=== PATIENT | male | born 1985 | race American Indian/Alaskan Native ===

== ENCOUNTER 2017-10-17 22:17 | Inpatient (IN) | payer OTHER ==
[2017-10-17 23:46] LABS: INR 0.96 (0.87-1.13)
[2017-10-17 23:47] LABS: Partial Thromboplastin Time 27.2 Sec. (24.2-36.6)
[2017-10-17] MEDS ORDERED: MORPHINE ONE (23:47)
[2017-10-17] MEDS ORDERED: MORPHINE IV ONE (23:50)
[2017-10-18 00:02] LABS: Alanine Aminotransferase 15 units/L (7-56); Albumin 3.8 g/dL (3.9-5); BUN/Creatinine Ratio 15; Blood Urea Nitrogen 15 mg/dL (9-20); Calcium 8.8 mg/dL (8.4-10.2); Hemolysis Index 57
--- NOTE | 2017-10-18 00:04 | XRay Report ---
FINAL REPORT EXAM: XR CHEST 1V AP HISTORY: CHEST PAIN, SEVERE TECHNIQUE: AP portable view of the chest. PRIORS: None. FINDINGS: There is a left-sided AICD that appears adequately positioned. The cardiac silhouette is moderately to markedly enlarged. Pulmonary vascularity appears normal. The lungs are clear. The bones and soft tissues are unremarkable. IMPRESSION: Enlarged cardiac silhouette may be due to cardiomegaly or pericardial effusion.
[2017-10-18 00:07] LABS: Basophils # (Auto) 0.1 K/mm3 (0.0-0.1); Basophils % (Auto) 1.1 % (0.0-1.8); Eosinophils # (Auto) 0.1 K/mm3 (0.0-0.4); Eosinophils % (Auto) 1.6 % (0.0-4.3); Hematocrit 38.8 % (35.5-45.6); Hemoglobin 12.1 gm/dl (11.8-15.2); Lymphocytes # (Auto) 2.7 K/mm3 (1.2-5.4); Mean Corpuscular HGB Conc 31 % (32-34); Mean Corpuscular Volume 75 fl (84-94); Monocytes # (Auto) 0.7 K/mm3 (0.0-0.8); Monocytes % (Auto) 9.3 % (0.0-7.3); Platelet Count 268 K/mm3 (140-440); Red Cell Distribution Width 15.2 % (13.2-15.2)
[2017-10-18 00:16] LABS: Mean Corpuscular Hemoglobin 23 pg (28-32)
[2017-10-18] MEDS ORDERED: DILAUDID IV ONE (00:28)
--- NOTE | 2017-10-18 01:20 | Emergency Department Report ---
HPI - General Chief Complaint: Chest Pain Time Seen by Provider: 10/17/17 22:55 - HPI HPI: 32-year-old male morbidly obese presents to ED with severe chest pain that started during physical activity. He described his pain as substernal 10 out of 10, without radiation. Patient does have a history of cardiac pathology and has AICD. Which she stated did not fire. Patient denies any shortness of breath, nausea, diaphoresis. He denies any alleviating factors, states that physical activity is an exacerbating factor. Patient states he has been compliant with medication. ED Past Medical Hx - Past Medical History Hx Heart Attack/AMI: Yes Hx Congestive Heart Failure: Yes Hx Diabetes: Yes Hx Deep Vein Thrombosis: Yes - Surgical History Past Surgical History?: Yes Hx Internal Defibrillator: Yes - Social History Smoking Status: Never Smoker Substance Use Type: None ED Review of Systems ROS: Stated complaint: CHEST PAIN Other details as noted in HPI Comment: All other systems reviewed and negative Respiratory: denies: cough Cardiovascular: chest pain, edema. denies: syncope, paroxysmal nocturnal dyspnea, other Physical Exam - Physical Exam Vital Signs: Vital Signs 10/17/17 10/17/17 10/17/17 22:34 22:46 23:00 Temperature Pulse Rate 93 H 88 91 H Respiratory 23 16 20 Rate Blood Pressure 136/97 O2 Sat by Pulse 97 Oximetry 10/17/17 10/17/17 10/17/17 23:10 23:15 23:31 Temperature 98.8 F Pulse Rate 104 H 84 83 Respiratory 20 13 12 Rate Blood Pressure 136/84 136/97 142/91 O2 Sat by Pulse 98 99 99 Oximetry 10/17/17 10/18/17 10/18/17 23:45 00:01 00:15 Temperature Pulse Rate 87 83 87 Respiratory 30 H 18 19 Rate Blood Pressure 129/90 129/90 129/90 O2 Sat by Pulse 100 99 100 Oximetry 10/18/17 00:26 Temperature Pulse Rate Respiratory 20 Rate Blood Pressure O2 Sat by Pulse 95 Oximetry Physical Exam: - Physical Exam - General Limitations: No Limitations General appearance: alert, in no apparent distress, morbidly obese - Head Head exam: Present: atraumatic, normocephalic - Eye Eye exam: Present: normal appearance - ENT ENT exam: Present: mucous membranes moist - Neck Neck exam: Present: normal inspection - Respiratory Respiratory exam: Present: normal lung sounds bilaterally. Absent: respiratory distress - Cardiovascular Cardiovascular Exam: Present: normal rhythm, normal rate. Absent: systolic murmur, diastolic murmur, rubs, gallop - GI/Abdominal GI/Abdominal exam: Present: soft, normal bowel sounds - Extremities Exam Extremities exam: Present: Bilateral lower extremity edema. 4+ - Back Exam Back exam: Present: normal inspection - Neurological Exam Neurological exam: Present: alert, oriented X3 - Psychiatric Psychiatric exam: normal affect and mood - Skin Skin exam: Present: warm, dry, intact, normal color. Absent: rash ED Course Vital Signs 10/17/17 10/17/17 10/17/17 22:34 22:46 23:00 Temperature Pulse Rate 93 H 88 91 H Respiratory 23 16 20 Rate Blood Pressure 136/97 O2 Sat by Pulse 97 Oximetry 10/17/17 10/17/17 10/17/17 23:10 23:15 23:31 Temperature 98.8 F Pulse Rate 104 H 84 83 Respiratory 20 13 12 Rate Blood Pressure 136/84 136/97 142/91 O2 Sat by Pulse 98 99 99 Oximetry 10/17/17 10/18/17 10/18/17 23:45 00:01 00:15 Temperature Pulse Rate 87 83 87 Respiratory 30 H 18 19 Rate Blood Pressure 129/90 129/90 129/90 O2 Sat by Pulse 100 99 100 Oximetry 10/18/17 00:26 Temperature Pulse Rate Respiratory 20 Rate Blood Pressure O2 Sat by Pulse 95 Oximetry ED Medical Decision Making - Lab Data Result diagrams: 10/17/17 23:04 10/17/17 23:04 Critical care attestation.: If time is entered above; I have spent that time in minutes in the direct care of this critically ill patient, excluding procedure time. ED Disposition Clinical Impression: Chest pain Qualifiers: Chest pain type: other chest pain Qualified Code(s): R07.89 - Other chest pain ; R07.8 - Other chest pain Disposition: OP ADMIT IP TO THIS HOSP Is pt being admited?: Yes Does the pt Need Aspirin: Yes Condition: Stable Instructions: Chest Pain (ED)
[2017-10-18] MEDS ORDERED: ZOFRAN IV PRN (02:31)
[2017-10-18] MEDS ORDERED: SODIUM CHLORIDE FLUSH SYRINGE 10 ML IV PRN (02:31)
[2017-10-18] MEDS ORDERED: TYLENOL PO PRN (02:31)
[2017-10-18] MEDS ORDERED: D50W (25GM) Syringe IV PRN (02:34)
--- NOTE | 2017-10-18 03:10 | History and Physical Report ---
History of Present Illness Date of examination: 10/18/17 Date of admission: 10/18/17 01:21 Chief complaint: Chest pain History of present illness: Patient is a 32-year-old -[place] male with medical history significant for CAD who presented to the ED on account of few hours history of left-sided chest pain. He stated that it started while he was taking a walk, as part of his exercise he started about 3 months ago in order to lose weight. He described it as sharp in character, constant in duration, rated 8-9/10, and non - radiating. No known aggravating or relieving factors. He has associated shortness of breath with mild exertion, diaphoresis, palpitation, and right leg swelling. He denies cough, fever or chills, headaches, nausea or vomiting, dizziness, syncope or loss of consciousness. Past History Past Medical History: CAD (non-obstructive), diabetes, heart failure (status post AICD), other (morbid obesity, history of DVT, lymphedema) Past Surgical History: Other (AICD placement) Social history: other (he denies tobacco, alcohol or illicit drug use.) Family history: other (mother from heart attack in her 30's) Medications and Allergies Allergies Allergy/AdvReac Type Severity Reaction Status Date / Time No Known Allergies Allergy Unverified 10/18/17 00:25 Active Meds: Active Medications Acetaminophen (Tylenol) 650 mg PO Q4H PRN PRN Reason: Pain MILD(1-3)/Fever >100.5/ROBERSON Dextrose (D50w (25gm) Syringe) 50 ml IV PRN PRN PRN Reason: Hypoglycemia Docusate Sodium (Colace) 100 mg PO BID [facility] Famotidine (Pepcid) 20 mg PO BID [facility] Insulin Glargine (Lantus) 10 units SUB-Q QHS [facility] Insulin Human Regular (Humulin R) 0 units SUB-Q ACHS [facility]; Protocol Ondansetron HCl (Zofran) 4 mg IV Q8H PRN PRN Reason: Nausea And Vomiting Oxycodone/Acetaminophen (Percocet 5/325) 2 tab PO Q4H PRN PRN Reason: Pain, Moderate (4-6) Sodium Chloride (Sodium Chloride Flush Syringe 10 Ml) 10 ml IV BID [facility] Sodium Chloride (Sodium Chloride Flush Syringe 10 Ml) 10 ml IV PRN PRN PRN Reason: LINE FLUSH Review of Systems All systems: negative (except as documented in the HPI, all other systems were reviewed and negative) Exam - Constitutional Vitals: Temp Pulse Resp BP Pulse Ox 98.8 F 84 15 157/79 98 10/17/17 23:10 10/18/17 01:45 10/18/17 01:45 10/18/17 01:45 10/18/17 01:45 General appearance: Present: no acute distress, other (morbidly obese) - EENT Eyes: Present: PERRL, EOM intact ENT: hearing intact, clear oral mucosa - Neck Neck: Present: supple, normal ROM - Respiratory Respiratory effort: normal Respiratory: bilateral: CTA - Cardiovascular Heart Sounds: Present: S1 & S2. Absent: rub, click - Extremities Extremities: pulses symmetrical Extremity abnormal: edema (right more than left) Peripheral Pulses: within normal limits - Abdominal General gastrointestinal: Present: soft, non-tender, non-distended, normal bowel sounds Male genitourinary: Present: normal - Integumentary Integumentary: Present: warm, dry - Musculoskeletal Musculoskeletal: gait normal, strength equal bilaterally - Psychiatric Psychiatric: appropriate mood/affect, intact judgment & insight - Neurologic Neurologic: CNII-XII intact, moves all extremities Results - Labs CBC & Chem 7: 10/17/17 23:04 10/17/17 23:04 Labs: Laboratory Last Values WBC 7.2 K/mm3 (4.5-11.0) 10/17/17 23:04 RBC 5.20 M/mm3 (3.65-5.03) H 10/17/17 23:04 Hgb 12.1 gm/dl (11.8-15.2) 10/17/17 23:04 Hct 38.8 % (35.5-45.6) 10/17/17 23:04 MCV 75 fl (84-94) L 10/17/17 23:04 MCH 23 pg (28-32) L 10/17/17 23:04 MCHC 31 % (32-34) L 10/17/17 23:04 RDW 15.2 % (13.2-15.2) 10/17/17 23:04 Plt Count 268 K/mm3 (140-440) 10/17/17 23:04 Lymph % (Auto) 38.0 % (13.4-35.0) H 10/17/17 23:04 Russell % (Auto) 9.3 % (0.0-7.3) H 10/17/17 23:04 Eos % (Auto) 1.6 % (0.0-4.3) 10/17/17 23:04 Baso % (Auto) 1.1 % (0.0-1.8) 10/17/17 23:04 Lymph # 2.7 K/mm3 (1.2-5.4) 10/17/17 23:04 Russell # 0.7 K/mm3 (0.0-0.8) 10/17/17 23:04 Eos # 0.1 K/mm3 (0.0-0.4) 10/17/17 23:04 Baso # 0.1 K/mm3 (0.0-0.1) 10/17/17 23:04 Seg Neutrophils % 50.0 % (40.0-70.0) 10/17/17 23:04 Seg Neutrophils # 3.6 K/mm3 (1.8-7.7) 10/17/17 23:04 PT 13.3 Sec. (12.2-14.9) 10/17/17 23:04 INR 0.96 (0.87-1.13) 10/17/17 23:04 APTT 27.2 Sec. (24.2-36.6) 10/17/17 23:04 Sodium 138 mmol/L (137-145) 10/17/17 23:04 Potassium 4.3 mmol/L (3.6-5.0) 10/17/17 23:04 Chloride 99.9 mmol/L (98-107) 10/17/17 23:04 Carbon Dioxide 22 mmol/L (22-30) 10/17/17 23:04 Anion Gap 20 mmol/L 10/17/17 23:04 BUN 15 mg/dL (9-20) 10/17/17 23:04 Creatinine 1.0 mg/dL (0.8-1.5) 10/17/17 23:04 Estimated GFR > 60 ml/min 10/17/17 23:04 BUN/Creatinine Ratio 15 % 10/17/17 23:04 Glucose 179 mg/dL (75-100) H 10/17/17 23:04 Calcium 8.8 mg/dL (8.4-10.2) 10/17/17 23:04 Total Bilirubin 0.20 mg/dL (0.1-1.2) 10/17/17 23:04 AST 17 units/L (5-40) 10/17/17 23:04 ALT 15 units/L (7-56) 10/17/17 23:04 Alkaline Phosphatase 50 units/L (35-129) 10/17/17 23:04 Troponin T 0.012 ng/mL (0.00-0.029) 10/18/17 01:28 NT-Pro-B Natriuret Pep 965.0 pg/mL (0-450) H 10/17/17 23:04 Total Protein 7.5 g/dL (6.3-8.2) 10/17/17 23:04 Albumin 3.8 g/dL (3.9-5) L 10/17/17 23:04 Albumin/Globulin Ratio 1.0 % 10/17/17 23:04 Assessment and Plan Assessment and plan: Chest pain, rule out ACS -Start chest pain pathway -Consider cardiology consult if chest pain persists. History of lymphedema -Right lower extremity swelling more than left -Due to prior history of DVT, will order venous doppler ultrasound to assess for DVT History of chronic systolic Failure with EF of 20% status post AICD placement -No acute exacerbation NIDDM2 with hyperglycemia -Start basal and prandial insulin regimen Morbid obesity with BMI of 66.5 -Weight loss encouraged Prophylaxis -DVT prophylaxis with SCD and GI prophylaxis with famotidine 35 minutes spent in coordinating care
[2017-10-18] MEDS ORDERED: PEPCID ONE (03:42)
[2017-10-18] MEDS ORDERED: COLACE ONE (03:42)
[2017-10-18] MEDS ORDERED: PERCOCET 5/325 ONE (03:44)
[2017-10-18] MEDS: COLACE PO SCH ×3 (03:53→22:05)
[2017-10-18] MEDS: PEPCID PO SCH ×3 (03:53→22:05)
[2017-10-18] MEDS: PERCOCET 5/325 PO PRN ×3 (03:54→22:06)
--- NOTE | 2017-10-18 10:05 | Progress Note ---
Assessment and Plan Assessment and plan: --Chest pain/possible acute coronary syndrome Serial cardiac enzymes and EKG, echocardiogram, stress test Cardiology evaluation --Severe cardiomyopathy; continue current anti-failure medications --Acute on chronic systolic congestive heart failure; ejection fraction 20% Low-sodium diet, fluid restriction, anti-failure medications, follow echocardiogram --Chronic lymphedema; supportive care Lower extremity venous Doppler negative for DVT --History of DVT; on xeralto --Type 2 diabetes mellitus; Accu-Chek sliding scale coverage and ADA diet and insulin as needed --Morbid obesity; consequently been advised that modification and exercise as tolerated and weight reduction when medically stable May benefit by a bariatric surgical consultation for weight reduction program --DVT prophylaxis patient is on Xeralto Closely monitor the patient and adjust the management as needed Follow cardiology evaluation and recommendations Plan of care discussed with the patient and his nurse History Interval history: Patient was admitted this morning with chest pain and shortness of breath Physical site slightly better, has intermittent chest pain, asked for more pain medication Alert awake oriented 3 not in acute distress Morbidly obese Hospitalist Physical - Constitutional Vitals: Temp Pulse Resp BP Pulse Ox 98.8 F 98 H 25 H 125/91 99 10/17/17 23:10 10/18/17 05:03 10/18/17 03:15 10/18/17 03:15 10/18/17 03:00 General appearance: Present: no acute distress, well-nourished, other (morbidly obese) - EENT Eyes: Present: PERRL, EOM intact - Neck Neck: Present: supple, normal ROM - Respiratory Respiratory effort: normal Respiratory: bilateral: diminished, negative: rales, rhonchi, wheezing - Cardiovascular Rhythm: regular Heart Sounds: Present: S1 & S2 - Extremities Extremities: no ischemia, No edema - Abdominal General gastrointestinal: soft, non-tender, non-distended, normal bowel sounds - Integumentary Integumentary: Present: clear, warm - Psychiatric Psychiatric: appropriate mood/affect, cooperative - Neurologic Neurologic: CNII-XII intact, moves all extremities Results - Labs CBC & Chem 7: 10/17/17 23:04 10/17/17 23:04 Labs: Laboratory Last Values WBC 7.2 K/mm3 (4.5-11.0) 10/17/17 23:04 RBC 5.20 M/mm3 (3.65-5.03) H 10/17/17 23:04 Hgb 12.1 gm/dl (11.8-15.2) 10/17/17 23:04 Hct 38.8 % (35.5-45.6) 10/17/17 23:04 MCV 75 fl (84-94) L 10/17/17 23:04 MCH 23 pg (28-32) L 10/17/17 23:04 MCHC 31 % (32-34) L 10/17/17 23:04 RDW 15.2 % (13.2-15.2) 10/17/17 23:04 Plt Count 268 K/mm3 (140-440) 10/17/17 23:04 Lymph % (Auto) 38.0 % (13.4-35.0) H 10/17/17 23:04 Greene % (Auto) 9.3 % (0.0-7.3) H 10/17/17 23:04 Eos % (Auto) 1.6 % (0.0-4.3) 10/17/17 23:04 Baso % (Auto) 1.1 % (0.0-1.8) 10/17/17 23:04 Lymph # 2.7 K/mm3 (1.2-5.4) 10/17/17 23:04 Greene # 0.7 K/mm3 (0.0-0.8) 10/17/17 23:04 Eos # 0.1 K/mm3 (0.0-0.4) 10/17/17 23:04 Baso # 0.1 K/mm3 (0.0-0.1) 10/17/17 23:04 Seg Neutrophils % 50.0 % (40.0-70.0) 10/17/17 23:04 Seg Neutrophils # 3.6 K/mm3 (1.8-7.7) 10/17/17 23:04 PT 13.3 Sec. (12.2-14.9) 10/17/17 23:04 INR 0.96 (0.87-1.13) 10/17/17 23:04 APTT 27.2 Sec. (24.2-36.6) 10/17/17 23:04 Sodium 138 mmol/L (137-145) 10/17/17 23:04 Potassium 4.3 mmol/L (3.6-5.0) 10/17/17 23:04 Chloride 99.9 mmol/L (98-107) 10/17/17 23:04 Carbon Dioxide 22 mmol/L (22-30) 10/17/17 23:04 Anion Gap 20 mmol/L 10/17/17 23:04 BUN 15 mg/dL (9-20) 10/17/17 23:04 Creatinine 1.0 mg/dL (0.8-1.5) 10/17/17 23:04 Estimated GFR > 60 ml/min 10/17/17 23:04 BUN/Creatinine Ratio 15 % 10/17/17 23:04 Glucose 179 mg/dL (75-100) H 10/17/17 23:04 Calcium 8.8 mg/dL (8.4-10.2) 10/17/17 23:04 Total Bilirubin 0.20 mg/dL (0.1-1.2) 10/17/17 23:04 AST 17 units/L (5-40) 10/17/17 23:04 ALT 15 units/L (7-56) 10/17/17 23:04 Alkaline Phosphatase 50 units/L (35-129) 10/17/17 23:04 Troponin T 0.012 ng/mL (0.00-0.029) 10/18/17 01:28 NT-Pro-B Natriuret Pep 965.0 pg/mL (0-450) H 10/17/17 23:04 Total Protein 7.5 g/dL (6.3-8.2) 10/17/17 23:04 Albumin 3.8 g/dL (3.9-5) L 10/17/17 23:04 Albumin/Globulin Ratio 1.0 % 10/17/17 23:04
[2017-10-18] MEDS ORDERED: LASIX PO SCH (11:00)
[2017-10-18] MEDS: HumuLIN R SUB-Q SCH ×3 (12:35→22:50)
[2017-10-18] MEDS: BABY ASPIRIN PO SCH (13:08)
[2017-10-18] MEDS: SODIUM CHLORIDE FLUSH SYRINGE 10 ML IV SCH ×2 (13:09→22:50)
[2017-10-18] MEDS: XARELTO PO SCH (13:17)
--- NOTE | 2017-10-18 14:49 | Consultation ---
History of Present Illness Consult date: 10/18/17 Requesting physician: KENNY JOSEPH Consult reason: chest pain History of present illness: The patient claims that [place]. He was diagnosed with chronic systolic heart failure for the first time in April 2016. He claims that he was told that he had a heart attack at that time. He reportedly underwent coronary angiography at [facility] which did not reveal any significant CAD. He claims that he underwent coronary angiography again in July 2016 at the same hospital with no significant CAD. Just over a week ago, he claims that he received an ICD implantation at [facility] in [facility]. On his last echocardiogram, he claims that his ejection fraction was 20%. He claims that he was discharged about 3-4 days ago. While ambulating yesterday, he developed left infraclavicular pain which he describes as constant and pressure-like. This was followed by shortness of breath. Upon arrival at his aunt's home, he decided to come to the ER for evaluation. He feels better currently. Past History Past Medical History: acute [place], diabetes, heart failure (chronic HFrEF, EF 20%; no significant CAD on coronary angiography in April 22 & 07/30.), hypertension, hyperlipidemia Past Surgical History: Other (AICD implantation in 10/28; chest tube placement for drainage of empyema at [place] 4-5 years ago) Social history: single (has 4 children). denies: smoking, alcohol abuse Family history: CAD Medications and Allergies Allergies Allergy/AdvReac Type Severity Reaction Status Date / Time No Known Allergies Allergy Unverified 10/18/17 00:25 Home Medications Medication Instructions Recorded Confirmed Last Taken Type Amlodipine Bes/Olmesartan Med 1 each PO QDAY 10/18/17 10/18/17 1 Day Ago History [Amlodipine-Olmesartan 10-20 mg] ~10/17/17 Carvedilol [Coreg] 12.5 mg PO BID 10/18/17 10/18/17 1 Day Ago History ~10/17/17 12.5 Furosemide [Lasix TAB] 80 mg PO BID 10/18/17 10/18/17 1 Day Ago History ~10/17/17 Metformin HCl 500 mg PO BID 10/18/17 10/18/17 1 Day Ago History ~10/17/17 Rivaroxaban [Xarelto] 20 mg PO QDAY 10/18/17 10/18/17 2 Days Ago History ~10/16/17 oxyCODONE /ACETAMINOPHEN [Percocet 1 tab PO Q6HR 10/18/17 10/18/17 2 Days Ago History 5/325] ~10/16/17 oxyCODONE [Roxicodone TAB] 5 mg PO Q6H PRN 10/18/17 10/18/17 2 Days Ago History ~10/16/17 Active Meds: Active Medications Acetaminophen (Tylenol) 650 mg PO Q4H PRN PRN Reason: Pain MILD(1-3)/Fever >100.5/ROBERSON Aspirin (Baby Aspirin) 81 mg PO QDAY [facility] Last Admin: 10/18/17 13:08 Dose: 81 mg Carvedilol (Coreg) 12.5 mg PO BID [facility] Dextrose (D50w (25gm) Syringe) 50 ml IV PRN PRN PRN Reason: Hypoglycemia Docusate Sodium (Colace) 100 mg PO BID [facility] Last Admin: 10/18/17 13:08 Dose: 100 mg Famotidine (Pepcid) 20 mg PO BID [facility] Last Admin: 10/18/17 13:08 Dose: 20 mg Furosemide (Lasix) 80 mg PO BID [facility] Last Admin: 10/18/17 13:17 Dose: 80 mg Insulin Glargine (Lantus) 10 units SUB-Q QHS [facility] Insulin Human Regular (Humulin R) 0 units SUB-Q ACHS [facility]; Protocol Last Admin: 10/18/17 12:35 Dose: Not Given Ondansetron HCl (Zofran) 4 mg IV Q8H PRN PRN Reason: Nausea And Vomiting Last Admin: 10/18/17 13:08 Dose: 4 mg Oxycodone HCl (Roxicodone) 5 mg PO Q6H PRN PRN Reason: Pain Oxycodone/Acetaminophen (Percocet 5/325) 2 tab PO Q4H PRN PRN Reason: Pain, Moderate (4-6) Last Admin: 10/18/17 13:08 Dose: 2 tab Rivaroxaban (Xarelto) 20 mg PO QDAY [facility]; Protocol Last Admin: 10/18/17 13:17 Dose: 20 mg Sodium Chloride (Sodium Chloride Flush Syringe 10 Ml) 10 ml IV BID [facility] Last Admin: 10/18/17 13:09 Dose: 10 ml Sodium Chloride (Sodium Chloride Flush Syringe 10 Ml) 10 ml IV PRN PRN PRN Reason: LINE FLUSH Review of Systems Constitutional: no fever, no chills Ears, nose, mouth and throat: no ear pain, no ear discharge, no sore throat Cardiovascular: chest pain, orthopnea, shortness of breath, no edema, no lightheadedness Respiratory: shortness of breath, no cough, no hemoptysis Gastrointestinal: no abdominal pain, no nausea, no vomiting, no diarrhea, no constipation Genitourinary Male: no dysuria, no hematuria, no urinary frequency Rectal: no pain, no bleeding Musculoskeletal: no neck stiffness, no myalgias Integumentary: no rash, no pruritis Neurological: no weakness, no parathesias, no headaches Endocrine: no cold intolerance, no heat intolerance Hematologic/Lymphatic: no easy bruising, no easy bleeding Allergic/Immunologic: no urticaria, no wheezing Physical Examination Vital Signs Last Vital Signs Vital Signs 10/18/17 10/18/17 10/18/17 08:05 08:07 10:00 Temperature 97.3 F L Pulse Rate 80 83 Respiratory Rate Blood Pressure 119/72 O2 Sat by Pulse 100 Oximetry 10/18/17 12:11 Temperature 98.1 F Pulse Rate Respiratory 18 Rate Blood Pressure 165/118 O2 Sat by Pulse Oximetry General appearance: no acute distress HEENT: Positive: EOMI, Normocephaly, Mucus Membranes Moist Neck: Positive: neck supple, trachea midline, JVD/HJR (elevated) Cardiac: Positive: Reg Rate and Rhythm, S1/S2 Lungs: Positive: clear to auscultation Neuro: Positive: Grossly Intact Abdomen: Positive: Soft, Active Bowel Sounds. Negative: Tender Skin: Positive: Clear. Negative: Rash Musculoskeletal: Normal Range of Motion Extremities: Present: normal. Absent: edema Results 10/17/17 23:04 10/17/17 23:04 Cardiac Enzymes 10/17/17 Range/Units 23:04 AST 17 (5-40) units/L Coagulation 10/17/17 Range/Units 23:04 PT 13.3 (12.2-14.9) Sec. INR 0.96 (0.87-1.13) APTT 27.2 (24.2-36.6) Sec. CBC 10/17/17 Range/Units 23:04 WBC 7.2 (4.5-11.0) K/mm3 RBC 5.20 H (3.65-5.03) M/mm3 Hgb 12.1 (11.8-15.2) gm/dl Hct 38.8 (35.5-45.6) % Plt Count 268 (140-440) K/mm3 Lymph # 2.7 (1.2-5.4) K/mm3 Stephens # 0.7 (0.0-0.8) K/mm3 Eos # 0.1 (0.0-0.4) K/mm3 Baso # 0.1 (0.0-0.1) K/mm3 Comprehensive Metabolic Panel 10/17/17 Range/Units 23:04 Sodium 138 (137-145) mmol/L Potassium 4.3 (3.6-5.0) mmol/L Chloride 99.9 (98-107) mmol/L Carbon Dioxide 22 (22-30) mmol/L BUN 15 (9-20) mg/dL Creatinine 1.0 (0.8-1.5) mg/dL Glucose 179 H (75-100) mg/dL Calcium 8.8 (8.4-10.2) mg/dL AST 17 (5-40) units/L ALT 15 (7-56) units/L Alkaline Phosphatase 50 (35-129) units/L Total Protein 7.5 (6.3-8.2) g/dL Albumin 3.8 L (3.9-5) g/dL - Imaging and Cardiology EKG: image reviewed EKG interpretations - Telemetry EKG Rhythm: Sinus Rhythm - EKG Sinus rhythms and dysrhythmias: sinus rhythm AV and intraventricular conduction: left bundle branch block Assessment and Plan Obtain records of his coronary angiograms from [facility]. Obtain recent hospitalization records from [facility] in [facility]. Initiate oral nitrates and JOSH inhibitor. Obtain echocardiogram due to significant cardiomegaly. - Patient Problems (1) Chest pain Current Visit: Yes Status: Acute Qualifiers: Chest pain type: other chest pain Qualified Code(s): R07.89 - Other chest pain; R07.8 - Other chest pain (2) NICM (nonischemic cardiomyopathy) Current Visit: Yes Status: Chronic (3) HFrEF (heart failure with reduced ejection fraction) Current Visit: Yes Status: Chronic (4) Hypertension Current Visit: Yes Status: Chronic Qualifiers: Hypertension type: essential hypertension Qualified Code(s): I10 - Essential (primary) hypertension (5) AICD (automatic cardioverter/defibrillator) present Current Visit: Yes Status: Chronic (6) Diabetes mellitus Current Visit: Yes Status: Chronic Qualifiers: Diabetes mellitus type: type 2
[2017-10-18] MEDS: ROXICODONE PO PRN (18:12)
[2017-10-18] MEDS: IMDUR PO SCH (18:13)
[2017-10-18 21:11] LABS: HDL Cholesterol 49 mg/dL (40-59); LDL Cholesterol,Direct 72 mg/dL (50-130)
[2017-10-18] MEDS: COREG PO SCH (22:05)
[2017-10-18] MEDS: LANTUS SUB-Q SCH (22:50)
[2017-10-19] MEDS: ROXICODONE PO PRN ×2 (04:30→13:50)
[2017-10-19] MEDS: LASIX PO SCH ×3 (06:03→18:46)
[2017-10-19] MEDS: HumuLIN R SUB-Q SCH ×4 (08:22→21:45)
--- NOTE | 2017-10-19 08:34 | Progress Note ---
Assessment and Plan Assessment and plan: --Hypotension; hold blood pressure medications, Closely monitor --Chest pain/possible acute coronary syndrome Serial cardiac enzymes negative and EKG, echocardiogram, unable to get a stress test due to morbid obesity Continue current cardiac medications, cardiology following Medical records from [place] --Severe cardiomyopathy; continue current anti-failure medications --Acute on chronic systolic congestive heart failure; ejection fraction 20% Low-sodium diet, fluid restriction, anti-failure medications, follow echocardiogram --Chronic lymphedema; supportive care Lower extremity venous Doppler negative for DVT --History of DVT; on xeralto --Type 2 diabetes mellitus; Accu-Chek sliding scale coverage and ADA diet and insulin as needed --Morbid obesity; counseling done advised diet modification and exercise as tolerated and weight reduction when medically stable May benefit by a bariatric surgical consultation for weight reduction program --DVT prophylaxis patient is on Xeralto Cardiology evaluation and recommendations noted Closely monitor the patient and just management as needed Plan of care is reviewed with the patient History Interval history: Patient seen and examined medical records reviewed Has intermittent mild chest pain Unable to get stress test in view of morbid obesity Alert awake oriented 3 not in acute distress Blood pressures in the lower range Hospitalist Physical - Constitutional Vitals: Temp Pulse Resp BP Pulse Ox 97.8 F 76 22 88/48 93 10/19/17 08:03 10/19/17 07:59 10/19/17 08:03 10/19/17 08:03 10/19/17 07:59 General appearance: Present: no acute distress, well-nourished, obese (morbidly obese) - EENT Eyes: Present: PERRL, EOM intact - Neck Neck: Present: supple, normal ROM - Respiratory Respiratory effort: normal Respiratory: bilateral: diminished, negative: rales, rhonchi, wheezing - Cardiovascular Rhythm: regular Heart Sounds: Present: S1 & S2 - Extremities Extremities: no ischemia, No edema - Abdominal General gastrointestinal: soft, non-tender, non-distended, normal bowel sounds - Integumentary Integumentary: Present: clear, warm - Psychiatric Psychiatric: appropriate mood/affect, cooperative - Neurologic Neurologic: CNII-XII intact, moves all extremities Results - Labs CBC & Chem 7: 10/19/17 10:45 10/19/17 10:45 Labs: Laboratory Last Values WBC 7.2 K/mm3 (4.5-11.0) 10/17/17 23:04 RBC 5.20 M/mm3 (3.65-5.03) H 10/17/17 23:04 Hgb 12.1 gm/dl (11.8-15.2) 10/17/17 23:04 Hct 38.8 % (35.5-45.6) 10/17/17 23:04 MCV 75 fl (84-94) L 10/17/17 23:04 MCH 23 pg (28-32) L 10/17/17 23:04 MCHC 31 % (32-34) L 10/17/17 23:04 RDW 15.2 % (13.2-15.2) 10/17/17 23:04 Plt Count 268 K/mm3 (140-440) 10/17/17 23:04 Lymph % (Auto) 38.0 % (13.4-35.0) H 10/17/17 23:04 Hyde % (Auto) 9.3 % (0.0-7.3) H 10/17/17 23:04 Eos % (Auto) 1.6 % (0.0-4.3) 10/17/17 23:04 Baso % (Auto) 1.1 % (0.0-1.8) 10/17/17 23:04 Lymph # 2.7 K/mm3 (1.2-5.4) 10/17/17 23:04 Hyde # 0.7 K/mm3 (0.0-0.8) 10/17/17 23:04 Eos # 0.1 K/mm3 (0.0-0.4) 10/17/17 23:04 Baso # 0.1 K/mm3 (0.0-0.1) 10/17/17 23:04 Seg Neutrophils % 50.0 % (40.0-70.0) 10/17/17 23:04 Seg Neutrophils # 3.6 K/mm3 (1.8-7.7) 10/17/17 23:04 PT 13.3 Sec. (12.2-14.9) 10/17/17 23:04 INR 0.96 (0.87-1.13) 10/17/17 23:04 APTT 27.2 Sec. (24.2-36.6) 10/17/17 23:04 Sodium 138 mmol/L (137-145) 10/17/17 23:04 Potassium 4.3 mmol/L (3.6-5.0) 10/17/17 23:04 Chloride 99.9 mmol/L (98-107) 10/17/17 23:04 Carbon Dioxide 22 mmol/L (22-30) 10/17/17 23:04 Anion Gap 20 mmol/L 10/17/17 23:04 BUN 15 mg/dL (9-20) 10/17/17 23:04 Creatinine 1.0 mg/dL (0.8-1.5) 10/17/17 23:04 Estimated GFR > 60 ml/min 10/17/17 23:04 BUN/Creatinine Ratio 15 % 10/17/17 23:04 Glucose 179 mg/dL (75-100) H 10/17/17 23:04 POC Glucose 144 (70-105) H 10/18/17 22:46 Calcium 8.8 mg/dL (8.4-10.2) 10/17/17 23:04 Total Bilirubin 0.20 mg/dL (0.1-1.2) 10/17/17 23:04 AST 17 units/L (5-40) 10/17/17 23:04 ALT 15 units/L (7-56) 10/17/17 23:04 Alkaline Phosphatase 50 units/L (35-129) 10/17/17 23:04 Troponin T < 0.010 ng/mL (0.00-0.029) 10/18/17 19:37 NT-Pro-B Natriuret Pep 965.0 pg/mL (0-450) H 10/17/17 23:04 Total Protein 7.5 g/dL (6.3-8.2) 10/17/17 23:04 Albumin 3.8 g/dL (3.9-5) L 10/17/17 23:04 Albumin/Globulin Ratio 1.0 % 10/17/17 23:04 Triglycerides 168 mg/dL (2-149) H 10/18/17 19:37 Cholesterol 157 mg/dL (50-199) 10/18/17 19:37 LDL Cholesterol Direct 72 mg/dL (50-130) 10/18/17 19:37 HDL Cholesterol 49 mg/dL (40-59) 10/18/17 19:37 Cholesterol/HDL Ratio 3.20 % 10/18/17 19:37
[2017-10-19] MEDS ORDERED: ZESTRIL PO SCH ×2 (10:00→11:00)
[2017-10-19] MEDS: COLACE PO SCH ×2 (10:49→21:10)
[2017-10-19] MEDS: XARELTO PO SCH (10:49)
[2017-10-19] MEDS: BABY ASPIRIN PO SCH (10:51)
[2017-10-19] MEDS: SODIUM CHLORIDE FLUSH SYRINGE 10 ML IV SCH ×2 (10:52→21:11)
[2017-10-19] MEDS: COREG PO SCH ×2 (10:54→21:12)
[2017-10-19] MEDS: IMDUR PO SCH (10:54)
[2017-10-19] MEDS: PEPCID PO SCH ×2 (11:48→21:10)
[2017-10-19 12:14] LABS: BUN/Creatinine Ratio 13; Blood Urea Nitrogen 16 mg/dL (9-20); Hemolysis Index 13
[2017-10-19 12:19] LABS: Hematocrit 39.2 % (35.5-45.6); Hemoglobin 12.1 gm/dl (11.8-15.2); Mean Corpuscular HGB Conc 31 % (32-34); Mean Corpuscular Volume 74 fl (84-94); Platelet Count 254 K/mm3 (140-440); Red Blood Count 5.32 M/mm3 (3.65-5.03); Red Cell Distribution Width 15.2 % (13.2-15.2)
[2017-10-19 12:20] LABS: Mean Corpuscular Hemoglobin 23 pg (28-32)
--- NOTE | 2017-10-19 13:38 | Progress Note ---
Assessment and Plan His cardiac meds have parameters for holding. Still awaiting his CATH reports from [facility] and other records from [facility] in [place]. - Patient Problems (1) Chest pain Current Visit: Yes Status: Acute Qualifiers: Chest pain type: other chest pain Qualified Code(s): R07.89 - Other chest pain; R07.8 - Other chest pain (2) NICM (nonischemic cardiomyopathy) Current Visit: Yes Status: Chronic (3) HFrEF (heart failure with reduced ejection fraction) Current Visit: Yes Status: Chronic (4) Hypertension Current Visit: Yes Status: Chronic Qualifiers: Hypertension type: essential hypertension Qualified Code(s): I10 - Essential (primary) hypertension (5) AICD (automatic cardioverter/defibrillator) present Current Visit: Yes Status: Chronic (6) Diabetes mellitus Current Visit: Yes Status: Chronic Qualifiers: Diabetes mellitus type: type 2 Subjective Date of service: 10/19/17 Principal diagnosis: Chest pain, NICMP, HFrEF, HTN, ICD, DM Interval history: He still has intermittent precordial chest pain. His BP has been low today despite not being on as much antihypertensive medication as he took at home. Objective Vital Signs Temp Pulse Pulse Resp BP Pulse Ox 10/19/17 08:03 97.8 F 22 88/48 10/19/17 07:59 76 97/43 93 10/19/17 04:04 98.5 F 79 20 101/49 94 10/18/17 23:41 97.6 F 87 20 99/56 93 10/18/17 22:05 90 110/62 10/18/17 22:00 67 90 10/18/17 20:03 97.8 F 90 20 110/62 98 10/18/17 18:13 78 125/82 10/18/17 16:37 97.7 F 81 20 125/82 95 - Physical Examination General: No Apparent Distress HEENT: Positive: EOMI, Normocephaly, Mucus Membranes Moist Neck: Positive: neck supple, trachea midline, JVD/HJR (elevated) Cardiac: Positive: Reg Rate and Rhythm, S1/S2 Lungs: Positive: clear to auscultation Neuro: Positive: Grossly Intact Abdomen: Positive: Soft, Active Bowel Sounds. Negative: Tender Skin: Positive: Clear. Negative: Rash Musculoskeletal: Normal Range of Motion Extremities: Present: normal. Absent: edema - Labs and Meds Lipids 10/18/17 Range/Units 19:37 Triglycerides 168 H (2-149) mg/dL Cholesterol 157 (50-199) mg/dL HDL Cholesterol 49 (40-59) mg/dL Cholesterol/HDL Ratio 3.20 % CBC 10/19/17 Range/Units 10:45 WBC 6.5 (4.5-11.0) K/mm3 RBC 5.32 H (3.65-5.03) M/mm3 Hgb 12.1 (11.8-15.2) gm/dl Hct 39.2 (35.5-45.6) % Plt Count 254 (140-440) K/mm3 Comprehensive Metabolic Panel 10/19/17 Range/Units 10:45 Sodium 137 (137-145) mmol/L Potassium 4.3 (3.6-5.0) mmol/L Chloride 97.7 L (98-107) mmol/L Carbon Dioxide 24 (22-30) mmol/L BUN 16 (9-20) mg/dL Creatinine 1.2 (0.8-1.5) mg/dL Glucose 170 H (75-100) mg/dL Calcium 9.0 (8.4-10.2) mg/dL - Imaging and Cardiology EKG: image reviewed - Telemetry EKG Rhythm: Sinus Rhythm - EKG Sinus rhythms and dysrhythmias: sinus rhythm AV and intraventricular conduction: left bundle branch block
[2017-10-19 17:40] LABS: BUN/Creatinine Ratio 15; Blood Urea Nitrogen 16 mg/dL (9-20); Calcium 8.8 mg/dL (8.4-10.2); Hemolysis Index 12
[2017-10-19] MEDS: PERCOCET 5/325 PO PRN (18:45)
[2017-10-19] MEDS: LANTUS SUB-Q SCH (21:14)
[2017-10-20] MEDS: PERCOCET 5/325 PO PRN ×2 (03:06→10:11)
[2017-10-20] MEDS: LASIX PO SCH (05:24)
[2017-10-20] MEDS: PEPCID PO SCH (10:08)
[2017-10-20] MEDS: COREG PO SCH (10:09)
[2017-10-20] MEDS: BABY ASPIRIN PO SCH (10:09)
[2017-10-20] MEDS: XARELTO PO SCH (10:09)
[2017-10-20] MEDS: COLACE PO SCH (10:12)
[2017-10-20] MEDS: SODIUM CHLORIDE FLUSH SYRINGE 10 ML IV SCH (10:13)
--- NOTE | 2017-10-20 11:47 | Progress Note ---
Assessment and Plan Medical records reviewed - pt underwent LHC in 04/[address] [facility] which showed no angiographic evidence of CAD, EF 25%. Echo done in 04/2016 showed EF 15-20%, LV severely dilated, severe LVH, grade 2 diastolic dysfunction , RV mildly dilated, mild RV hypokinesis, LA mod dilated, RA mod dilated, trace MR, trace TR. BPs are documented as being elevated this AM. Will optimize anti-hypertensive regimen. Pending BPs are optimized, pt may discharge home this afternoon. Follow up in our [place] office with Dr. Bravo on 10/23/2017 @ 2:45PM. The patient has been seen in conjunction with Dr. Bravo who agrees with the assessment and plan of care. - Patient Problems (1) Chest pain Current Visit: Yes Status: Acute Qualifiers: Chest pain type: other chest pain Qualified Code(s): R07.89 - Other chest pain; R07.8 - Other chest pain (2) HFrEF (heart failure with reduced ejection fraction) Current Visit: Yes Status: Chronic (3) NICM (nonischemic cardiomyopathy) Current Visit: Yes Status: Chronic (4) AICD (automatic cardioverter/defibrillator) present Current Visit: Yes Status: Chronic (5) Diabetes mellitus Current Visit: Yes Status: Chronic Qualifiers: Diabetes mellitus type: type 2 (6) Hypertension Current Visit: Yes Status: Chronic Qualifiers: Hypertension type: essential hypertension Qualified Code(s): I10 - Essential (primary) hypertension (7) History of DVT (deep vein thrombosis) Current Visit: Yes Status: Chronic Subjective Date of service: 10/20/17 Principal diagnosis: Chest pain, NICMP, HFrEF, HTN, ICD, DM Interval history: Pt resting comfortably in bed, no current complaints. BPs are documented as being elevated this AM. Objective Last Vital Signs Temp 98.2 F 10/20/17 08:00 Pulse 85 10/20/17 10:09 Resp 81 H 10/20/17 08:00 BP 150/75 10/20/17 10:09 Pulse Ox 97 10/20/17 08:00 - Physical Examination General: No Apparent Distress HEENT: Positive: EOMI, Normocephaly, Mucus Membranes Moist Neck: Positive: neck supple, trachea midline, JVD/HJR (elevated) Cardiac: Positive: Reg Rate and Rhythm, S1/S2 Lungs: Positive: clear to auscultation Neuro: Positive: Grossly Intact Abdomen: Positive: Soft, Active Bowel Sounds. Negative: Tender Skin: Positive: Clear. Negative: Rash Musculoskeletal: Normal Range of Motion Extremities: Present: normal. Absent: edema - Labs and Meds CBC 10/19/17 Range/Units 10:45 WBC 6.5 (4.5-11.0) K/mm3 RBC 5.32 H (3.65-5.03) M/mm3 Hgb 12.1 (11.8-15.2) gm/dl Hct 39.2 (35.5-45.6) % Plt Count 254 (140-440) K/mm3 Comprehensive Metabolic Panel 10/19/17 10/19/17 Range/Units 10:45 16:27 Sodium 137 136 L (137-145) mmol/L Potassium 4.3 4.3 (3.6-5.0) mmol/L Chloride 97.7 L 96.7 L (98-107) mmol/L Carbon Dioxide 24 22 (22-30) mmol/L BUN 16 16 (9-20) mg/dL Creatinine 1.2 1.1 (0.8-1.5) mg/dL Glucose 170 H 118 H (75-100) mg/dL Calcium 9.0 8.8 (8.4-10.2) mg/dL - Imaging and Cardiology EKG: image reviewed - EKG Sinus rhythms and dysrhythmias: sinus rhythm AV and intraventricular conduction: left bundle branch block
[2017-10-20] MEDS: HumuLIN R SUB-Q SCH ×2 (11:50→16:01)
[2017-10-20 12:29] VITALS: BP 130/88
--- NOTE | 2017-10-20 12:33 | Discharge Summary ---
Providers - Providers Date of Admission: 10/18/17 01:21 Date of discharge: 10/20/17 Attending physician: KENNY JOSEPH 10/18/17 12:30 Consult to Physician [CONS] Routine Comment: Consulting Provider: SAMANTHA BRAVO Physician Instructions: Reason For Exam: chest pain/Cardiomyopathy/AICD 10/18/17 14:04 Consult to Physician [CONS] Routine Comment: Consulting Provider: SAMANTHA BRAVO Physician Instructions: Reason For Exam: Chest pain, cardiomyopathy, AICD Primary care physician: TACHO ROBERTSON Hospitalization Reason for admission: chest pain Condition: Stable Pertinent studies: Chest x-ray; enlarged cardiac silhouette, cardiomegaly or pericardial effusion Lower extremity venous Doppler; negative for DVT Echocardiogram; ejection fraction 15% Hospital course: 32-year-old morbidly obese male patient with significant past medical history of chronic systolic congestive heart failure with ejection fraction of 20% coronary artery disease hypertension dyslipidemia and diabetes , status post AICD placement was admitted through emergency room with atypical chest pain Patient was admitted to the hospital symptomatically managed, evaluated by cardiology Underwent chest x-ray echocardiogram, later requested stress test however due to morbid obesity, unable to do stress Patient's medications were optimized, Old records reviewed by the cardiology, no further workup was indicated Today patient is comfortable no new complaints, Vital signs stable [id number] evaluation physical examination done by me is unremarkable Clear breath cardiology for discharge and follow-up with him in the office Patient strongly counseled the importance of radiating to the treatment plan Verbalized understanding Patient is stable at discharge Discharge diagnosis; --Chest pain/possible acute coronary syndrome --Severe cardiomyopathy ejection fraction 15% --Acute on chronic systolic congestive heart failure --AICD --Type 2 diabetes mellitus --Hypertension --Dyslipidemia --History of DVT on Xeralto --Morbid obesity: BMI is 66.4 Disposition: - TO HOME OR SELFCARE Time spent for discharge: 32 min Core Measure Documentation - Palliative Care Palliative Care/ Comfort Measures: Not Applicable - Core Measures Any of the following diagnoses?: heart failure - Heart Failure Discharge Requirements JOSH/ARB for LVSD if EF <40%: Yes Beta nilson at discharge: Yes Exam - Constitutional Vitals: Temp Pulse Resp BP Pulse Ox 98.0 F 77 20 130/88 96 10/20/17 12:01 10/20/17 12:01 10/20/17 12:01 10/20/17 12:01 10/20/17 12:01 General appearance: Present: no acute distress, well-nourished - EENT Eyes: Present: PERRL, EOM intact - Neck Neck: Present: supple, normal ROM - Respiratory Respiratory effort: normal Respiratory: bilateral: diminished, negative: rales, rhonchi, wheezing - Cardiovascular Rhythm: regular Heart Sounds: Present: S1 & S2 - Extremities Extremities: no ischemia, No edema - Abdominal General gastrointestinal: Present: soft, non-tender, non-distended, normal bowel sounds - Integumentary Integumentary: Present: clear, warm - Musculoskeletal Musculoskeletal: strength equal bilaterally - Psychiatric Psychiatric: appropriate mood/affect, cooperative - Neurologic Neurologic: CNII-XII intact, moves all extremities Plan Activity: no restrictions, other (Diet modification,exercise as tolerated and weight reduction) Diet: other (cardiac diet) Additional Instructions: Follow up [facility] office with Dr. Bravo on 10/23/2017 @ 2:45PM. Follow up with: TACHO ROBERTSON MD [Primary Care Provider] - 7 Days SAMANTHA BRAVO MD [Staff Physician] - 7 Days (10/23/2017 @ 2:45PM ) Prescriptions: ISOSORBIDE MONOnitrate [Imdur ER] 60 mg PO QDAY #30 tablet
[2017-10-20] MEDS ORDERED: ZESTRIL PO SCH (13:00)
[2017-10-20] MEDS: IMDUR PO SCH (16:02)
--- NOTE | 2017-10-22 10:37 | Vascular Lab Report ---
LOWER EXTREMITY VENOUS DUPLEX: REASON FOR EXAM: Pain and swelling of the lower extremities. COMMENTS ON THE RIGHT: Chronic, partially occluding thrombus is seen in the distal superficial femoral vein and popliteal vein. The remaining veins visualized are freely compressible without evidence of internal echogenicity. Spontaneous and phasic flow is present proximally. COMMENTS ON THE LEFT: All veins visualized are freely compressible without evidence of internal echogenicity. Flow is spontaneous and phasic throughout. IMPRESSION: Partially occluding chronic thrombus in the right distal superficial femoral and popliteal veins. No evidence of acute deep venous thrombosis in the right lower extremity. No evidence of acute or chronic deep venous thrombosis in the left lower extremity. Study was somewhat technically limited due to patient body habitus.
== END 2017-10-20 16:00 | disposition home or self-care (01) | DRG 292 ==
LOC: ED 22:17 → 4A 10-18 01:21
PROVIDERS: ADMIT Internal Medicine; ATTEND Internal Medicine
DX: I11.0 Hypertensive heart disease with heart failure (principal); I24.9 Acute ischemic heart disease, unspecified; Z68.44 Body mass index [BMI] 60.0-69.9, adult; I50.23 Acute on chronic systolic (congestive) heart failure; I42.9 Cardiomyopathy, unspecified; E66.01 Morbid (severe) obesity due to excess calories; Z95.810 Presence of automatic (implantable) cardiac defibrillator; I25.2 Old myocardial infarction; I25.10 Atherosclerotic heart disease of native coronary artery without angina pectoris; Z86.718 Personal history of other venous thrombosis and embolism; Z82.49 Family history of ischemic heart disease and other diseases of the circulatory system; E11.65 Type 2 diabetes mellitus with hyperglycemia; I89.0 Lymphedema, not elsewhere classified; E78.5 Hyperlipidemia, unspecified; Z79.84 Long term (current) use of oral hypoglycemic drugs; I95.9 Hypotension, unspecified
CPT/HCPCS: 36415; 71045; 80048; 80053; 80061; 82962; 83735; 83880; 84484; 85025; 85027; 85610; 85730; 93005; 93010; 93306; 93970; 96374; 96375; J1170; J1815; J2270; J2405

== ENCOUNTER 2017-10-21 12:55 | Emergency (ER) | payer OTHER ==
[2017-10-21] MEDS ORDERED: ASPIRIN PO ONE (13:21)
[2017-10-21 14:04] LABS: Basophils # (Auto) 0.1 K/mm3 (0.0-0.1); Basophils % (Auto) 0.9 % (0.0-1.8); Eosinophils # (Auto) 0.1 K/mm3 (0.0-0.4); Eosinophils % (Auto) 1.8 % (0.0-4.3); Hematocrit 40.7 % (35.5-45.6); Hemoglobin 12.7 gm/dl (11.8-15.2); Lymphocytes # (Auto) 1.6 K/mm3 (1.2-5.4); Lymphocytes % (Auto) 26.2 % (13.4-35.0); Mean Corpuscular HGB Conc 31 % (32-34); Mean Corpuscular Volume 73 fl (84-94); Monocytes # (Auto) 0.4 K/mm3 (0.0-0.8); Monocytes % (Auto) 5.9 % (0.0-7.3); Platelet Count 253 K/mm3 (140-440); Red Blood Count 5.58 M/mm3 (3.65-5.03)
[2017-10-21] MEDS ORDERED: MORPHINE IV ONE ×2 (14:06→17:21)
[2017-10-21] MEDS ORDERED: ZOFRAN IV ONE (14:06)
--- NOTE | 2017-10-21 14:14 | Emergency Department Report ---
ED Chest Pain HPI - General Chief Complaint: Chest Pain Stated Complaint: CHEST PAIN Time Seen by Provider: 10/21/17 14:01 Source: patient, EMS Mode of arrival: Ambulatory Limitations: No Limitations - History of Present Illness Initial Comments: Patient is 32 years old male history of congestive heart failure and cardiomyopathy, hypertension diabetes morbidly or obese. Patient stated that he was playing with his niece 2 days ago and he fell on his left side and he had left upper chest pain anteriorly that went away but since this morning he started coming back again. Patient describes his pain as sharp in nature and comes and goes. Patient denied any cough or fever. MD Complaint: chest pain -: Gradual, days(s) Pain Location: left chest Severity scale (0 -10): 6 Quality: sharp Consistency: intermittent Worsens With: movement - Related Data Home Medications Medication Instructions Recorded Confirmed Last Taken Amlodipine Bes/Olmesartan Med 1 each PO QDAY 10/18/17 10/18/17 1 Day Ago [Amlodipine-Olmesartan 10-20 mg] ~10/17/17 Carvedilol [Coreg] 12.5 mg PO BID 10/18/17 10/18/17 1 Day Ago ~10/17/17 12.5 Furosemide [Lasix TAB] 80 mg PO BID 10/18/17 10/18/17 1 Day Ago ~10/17/17 Metformin HCl 500 mg PO BID 10/18/17 10/18/17 1 Day Ago ~10/17/17 Rivaroxaban [Xarelto] 20 mg PO QDAY 10/18/17 10/18/17 2 Days Ago ~10/16/17 oxyCODONE /ACETAMINOPHEN [Percocet 1 tab PO Q6HR 10/18/17 10/18/17 2 Days Ago 5/325 mg] ~10/16/17 oxyCODONE [Roxicodone TAB] 5 mg PO Q6H PRN 10/18/17 10/18/17 2 Days Ago ~10/16/17 Previous Rx's Medication Instructions Recorded Last Taken Type Aspirin [Aspirin BABY CHEW TAB] 81 mg PO QDAY tab.chew 10/20/17 Unknown Rx ISOSORBIDE MONOnitrate [Imdur ER] 60 mg PO QDAY #30 tablet 10/20/17 Unknown Rx Ondansetron [Zofran Odt] 4 mg PO Q8HR PRN #14 tab.rapdis 10/21/17 Unknown Rx traMADol [Ultram 50 MG tab] 50 mg PO Q4HR PRN #14 tablet 10/21/17 Unknown Rx Allergies Allergy/AdvReac Type Severity Reaction Status Date / Time No Known Allergies Allergy Unverified 10/18/17 00:25 Heart Score - HEART Score History: Moderately suspicious EKG: Non-specific Age: < 45 Risk factors: > 3 risk factors or hx of atherosclerotic disease Troponin: < normal limit HEART Score: 4 - Critical Actions Critical Actions: 4-6 pts:12-16.6% risk of adverse cardiac event. Should be admitted ED Review of Systems ROS: Stated complaint: CHEST PAIN Other details as noted in HPI Comment: All other systems reviewed and negative Constitutional: denies: chills, fever Respiratory: orthopnea, shortness of breath, SOB with exertion, SOB at rest. denies: cough, stridor, wheezing Cardiovascular: chest pain. denies: palpitations, dyspnea on exertion Gastrointestinal: denies: abdominal pain, nausea, vomiting, diarrhea, constipation, hematemesis, melena, hematochezia Genitourinary: denies: urgency, dysuria, frequency Neurological: denies: headache, weakness, numbness, paresthesias, confusion ED Past Medical Hx - Past Medical History Hx Hypertension: Yes Hx Heart Attack/AMI: Yes Hx Congestive Heart Failure: Yes Hx Diabetes: Yes Hx Deep Vein Thrombosis: Yes - Surgical History Hx Pacemaker: Yes Hx Internal Defibrillator: Yes - Social History Smoking Status: Never Smoker - Medications Home Medications: Home Medications Medication Instructions Recorded Confirmed Last Taken Type Amlodipine Bes/Olmesartan Med 1 each PO QDAY 10/18/17 10/18/17 1 Day Ago History [Amlodipine-Olmesartan 10-20 mg] ~10/17/17 Carvedilol [Coreg] 12.5 mg PO BID 10/18/17 10/18/17 1 Day Ago History ~10/17/17 12.5 Furosemide [Lasix TAB] 80 mg PO BID 10/18/17 10/18/17 1 Day Ago History ~10/17/17 Metformin HCl 500 mg PO BID 10/18/17 10/18/17 1 Day Ago History ~10/17/17 Rivaroxaban [Xarelto] 20 mg PO QDAY 10/18/17 10/18/17 2 Days Ago History ~10/16/17 oxyCODONE /ACETAMINOPHEN [Percocet 1 tab PO Q6HR 10/18/17 10/18/17 2 Days Ago History 5/325 mg] ~10/16/17 oxyCODONE [Roxicodone TAB] 5 mg PO Q6H PRN 10/18/17 10/18/17 2 Days Ago History ~10/16/17 Aspirin [Aspirin BABY CHEW TAB] 81 mg PO QDAY tab.chew 10/20/17 Unknown Rx ISOSORBIDE MONOnitrate [Imdur ER] 60 mg PO QDAY #30 tablet 10/20/17 Unknown Rx Ondansetron [Zofran Odt] 4 mg PO Q8HR PRN #14 tab.rapdis 10/21/17 Unknown Rx traMADol [Ultram 50 MG tab] 50 mg PO Q4HR PRN #14 tablet 10/21/17 Unknown Rx ED Physical Exam - General Limitations: No Limitations General appearance: alert, in no apparent distress - Head Head exam: Present: atraumatic, normocephalic - Eye Eye exam: Present: normal appearance - ENT ENT exam: Present: normal exam, normal orophraynx, mucous membranes moist - Neck Neck exam: Present: normal inspection, full ROM. Absent: tenderness, meningismus - Respiratory Respiratory exam: Present: normal lung sounds bilaterally, chest wall tenderness , decreased breath sounds. Absent: respiratory distress, wheezes, rales, rhonchi, accessory muscle use, prolonged expiratory - Cardiovascular Cardiovascular Exam: Present: regular rate, normal rhythm, normal heart sounds - GI/Abdominal GI/Abdominal exam: Present: soft, normal bowel sounds. Absent: distended, tenderness, guarding, rebound, rigid, organomegaly, mass, bruit, pulsatile mass , hernia - Extremities Exam Extremities exam: Present: pedal edema - Back Exam Back exam: Absent: CVA tenderness (R), CVA tenderness (L) - Neurological Exam Neurological exam: Present: alert, oriented X3, CN II-XII intact, normal gait - Skin Skin exam: Present: warm, intact, normal color ED Course Vital Signs 10/21/17 10/21/17 10/21/17 13:27 13:31 13:33 Temperature 97.8 F Pulse Rate 92 H 90 91 H Respiratory 22 26 H 20 Rate Blood Pressure 123/72 Blood Pressure 123/72 [Left] O2 Sat by Pulse 95 93 96 Oximetry 10/21/17 10/21/17 10/21/17 13:34 13:45 14:01 Temperature Pulse Rate 91 H 90 Respiratory 20 24 26 H Rate Blood Pressure 123/72 123/72 Blood Pressure [Left] O2 Sat by Pulse 96 96 97 Oximetry 10/21/17 10/21/17 10/21/17 14:29 14:31 14:45 Temperature Pulse Rate 81 77 Respiratory 14 22 Rate Blood Pressure 92/61 92/61 92/61 Blood Pressure [Left] O2 Sat by Pulse 97 96 96 Oximetry 10/21/17 10/21/17 10/21/17 15:00 15:15 15:31 Temperature Pulse Rate 79 81 83 Respiratory 22 22 23 Rate Blood Pressure 109/66 109/66 109/66 Blood Pressure [Left] O2 Sat by Pulse 95 96 94 Oximetry 10/21/17 10/21/17 10/21/17 15:45 16:00 16:15 Temperature Pulse Rate 82 79 83 Respiratory 22 24 22 Rate Blood Pressure 109/66 118/69 118/69 Blood Pressure [Left] O2 Sat by Pulse 96 94 97 Oximetry 10/21/17 10/21/17 10/21/17 16:31 16:45 17:00 Temperature Pulse Rate 85 85 89 Respiratory 24 24 26 H Rate Blood Pressure 118/69 118/69 139/73 Blood Pressure [Left] O2 Sat by Pulse 96 95 93 Oximetry 10/21/17 10/21/17 10/21/17 17:15 17:31 17:45 Temperature Pulse Rate 88 78 84 Respiratory 16 17 17 Rate Blood Pressure 139/73 139/73 139/73 Blood Pressure [Left] O2 Sat by Pulse 97 96 97 Oximetry 10/21/17 10/21/17 10/21/17 18:00 18:15 18:31 Temperature Pulse Rate 84 84 87 Respiratory 26 H 23 21 Rate Blood Pressure 114/75 114/75 114/75 Blood Pressure [Left] O2 Sat by Pulse 94 92 97 Oximetry ED Medical Decision Making - Lab Data Result diagrams: 10/21/17 13:44 10/21/17 13:44 - EKG Data -: EKG Interpreted by Mo EKG shows normal: sinus rhythm - EKG Data Interpretation: no acute changes - Radiology Data Radiology results: report reviewed Referring Physician: MAHIN SOMMER Patient Name: ANALIA DELUNA Date of : 1985 Sex: Male Report Date: 2017-10-21 Report Status: Finalized Findings [facility] [address] [place] [address] XRay Report Signed Patient: ANALIA DELUNA MR#: [id number] : 1985 Acct:[id number] Age/Sex: 32 / M ADM Date: 10/21/17 Loc: ED Attending Dr: Ordering Physician: MAHIN SOMMER Date of Service: 10/21/17 Procedure(s): XR ribs UNILAT 2V LT Accession Number(s): [id number] cc: MAHIN SOMMER Fluoro Time In Minutes: FINAL REPORT EXAM: XR RIBS UNILAT 2V LT HISTORY: chest pain, fall TECHNIQUE: PA view of the chest and 4 views of the left ribs PRIORS: CXR 10/17/2017 FINDINGS: There is no evidence for acute rib fracture or other bony pathologic abnormality in the left ribs. On the chest film, the lungs are clear without evidence for infiltrate, effusion, or pneumothorax. The heart is enlarged but stable. The single lead left subclavian pacemaker terminates in the right ventricle, unchanged. IMPRESSION: No acute abnormality in the left ribs or chest. Transcribed By: [facility] Dictated By: MARY LOU DSOUZA MD Electronically Authenticated By: MARY LOU DSOUZA MD Signed Date/Time: 10/21/171802 DD/ 02 TD/TT: 10/21/171802 - Medical Decision Making Patient stated that he is feeling much better. I reviewed his previous medical record patient was seen recently by statistical machine mechanic in patient's and no further workup was indicated. Today 2 sets of troponins came back within normal limits. Chest x-ray was reviewed and it did not show any rib fracture or pneumothorax. I advised patient to follow-up with his primary care physician for further management. Critical care attestation.: If time is entered above; I have spent that time in minutes in the direct care of this critically ill patient, excluding procedure time. ED Disposition Clinical Impression: Chest pain, Chest wall contusion Disposition: TO HOME OR SELFCARE Is pt being admited?: No Condition: Stable Instructions: Chest Pain (ED), Costochondritis (ED) Prescriptions: Ondansetron [Zofran Odt] 4 mg PO Q8HR PRN #14 tab.rapdis PRN Reason: Nausea And Vomiting traMADol [Ultram 50 MG tab] 50 mg PO Q4HR PRN #14 tablet PRN Reason: Pain Referrals: PRIMARY CARE,MD [Primary Care Provider] - 3-5 Days
[2017-10-21 14:15] LABS: Mean Corpuscular Hemoglobin 23 pg (28-32)
[2017-10-21 14:21] LABS: BUN/Creatinine Ratio 14; Blood Urea Nitrogen 15 mg/dL (9-20); Calcium 8.7 mg/dL (8.4-10.2); Hemolysis Index 62
[2017-10-21] MEDS ORDERED: MORPHINE ONE (17:16)
[2017-10-21 18:08] VITALS: BP 114/75
--- NOTE | 2017-10-21 18:09 | XRay Report ---
FINAL REPORT EXAM: XR RIBS UNILAT 2V LT HISTORY: chest pain, fall TECHNIQUE: PA view of the chest and 4 views of the left ribs PRIORS: CXR 10/17/2017 FINDINGS: There is no evidence for acute rib fracture or other bony pathologic abnormality in the left ribs. On the chest film, the lungs are clear without evidence for infiltrate, effusion, or pneumothorax. The heart is enlarged but stable. The single lead left subclavian pacemaker terminates in the right ventricle, unchanged. IMPRESSION: No acute abnormality in the left ribs or chest.
== END 2017-10-21 18:48 | disposition home or self-care (01) ==
LOC: ED 12:55
DX: S20.212A Contusion of left front wall of thorax, initial encounter (principal); I11.0 Hypertensive heart disease with heart failure; I50.9 Heart failure, unspecified; Z95.0 Presence of cardiac pacemaker; Z79.82 Long term (current) use of aspirin; W18.30XA Fall on same level, unspecified, initial encounter; Y93.89 Activity, other specified; Y92.89 Other specified places as the place of occurrence of the external cause; Y99.8 Other external cause status
CPT/HCPCS: 36415; 71100; 80048; 84484; 85025; 93005; 93010; 96374; 96375; 96376; 99284; J2270; J2405

== ENCOUNTER 2018-01-04 14:41 | Inpatient (IN) | payer OTHER ==
[2018-01-04] MEDS ORDERED: ASPIRIN PO ONE (15:03)
--- NOTE | 2018-01-04 15:51 | XRay Report ---
FINAL REPORT EXAM: XR CHEST ROUTINE 2V HISTORY: sob COMPARISON: Chest radiograph performed on 11/17/2017 TECHNIQUE: Frontal and lateral views of the chest FINDINGS: Left-sided defibrillator is unchanged in position. Stable cardiomegaly. Small right pleural effusion with associated atelectasis at the right lung base. No acute bony or soft tissue abnormality. IMPRESSION: Stable cardiomegaly. Small right pleural effusion with associated atelectasis at the right lung base.
[2018-01-04 16:16] LABS: BUN/Creatinine Ratio 20; Blood Urea Nitrogen 24 mg/dL (9-20); Calcium 9.2 mg/dL (8.4-10.2); Hemolysis Index 6; INR 2.19 (0.87-1.13)
[2018-01-04 16:17] LABS: Partial Thromboplastin Time 37.2 Sec. (24.2-36.6)
--- NOTE | 2018-01-04 16:25 | Emergency Department Report ---
ED General Adult HPI - General Chief complaint: Dyspnea/Respdistress Stated complaint: CHEST/LEG PAIN/SOB Time Seen by Provider: 01/04/18 16:09 Source: patient Mode of arrival: Ambulatory Limitations: No Limitations - History of Present Illness Initial comments: 32-year-old morbidly obese history of cardiomyopathy with some left-sided chest pain that started at rest this morning at 6 AM he says it got worse when he was out doing his morning walk he is not sure if it was sudden he's not sure if it' s exertional is not sure if it's worse with rest or exertion. It is left-sided he apparently had a cardiac catheterization several months ago that did not apparently show significant disease he does have a history of DVT he says he has been taking his medicine he is here for some intermittent shortness of breath and left-sided chest pain and he increased his diuretic -: Gradual, hour(s), unknown Radiation: non-radiation Quality: burning, stabbing, aching Consistency: constant Worsens with: movement Associated Symptoms: chest pain, shortness of breath. denies: diaphoresis, fever/chills, malaise, nausea/vomiting, rash, seizure, syncope - Related Data Home Medications Medication Instructions Recorded Confirmed Last Taken Carvedilol [Coreg] 12.5 mg PO BID 10/18/17 11/17/17 1 Day Ago ~10/17/17 12.5 Metformin HCl 1,000 mg PO BID 10/18/17 11/17/17 1 Day Ago ~10/17/17 Rivaroxaban [Xarelto] 20 mg PO QDAY 10/18/17 11/17/17 2 Days Ago ~10/16/17 Losartan [Cozaar] 25 mg PO QDAY 11/17/17 11/17/17 Unknown Torsemide [Demadex] 20 mg PO BID 11/17/17 11/17/17 Unknown Previous Rx's Medication Instructions Recorded Last Taken Type HYDROmorphone [Dilaudid] 2 mg PO Q6H PRN #14 tablet 11/19/17 Unknown Rx Allergies Allergy/AdvReac Type Severity Reaction Status Date / Time No Known Allergies Allergy Unverified 10/18/17 00:25 ED Review of Systems ROS: Stated complaint: CHEST/LEG PAIN/SOB Other details as noted in HPI Comment: All other systems reviewed and negative Constitutional: denies: diaphoresis, fever, malaise Eyes: denies: eye discharge, vision change ENT: denies: dental pain, hearing loss, epistaxis Respiratory: cough, orthopnea, shortness of breath. denies: stridor Cardiovascular: chest pain. denies: palpitations, dyspnea on exertion, orthopnea, edema, syncope, paroxysmal nocturnal dyspnea Gastrointestinal: denies: abdominal pain, nausea, vomiting, diarrhea, constipation, hematemesis, melena, hematochezia Neurological: denies: headache, weakness, numbness, paresthesias, confusion, abnormal gait, vertigo ED Past Medical Hx - Past Medical History Hx Hypertension: Yes Hx Heart Attack/AMI: Yes Hx Congestive Heart Failure: Yes Hx Diabetes: Yes Hx Deep Vein Thrombosis: Yes - Surgical History Hx Pacemaker: Yes Hx Internal Defibrillator: Yes Additional Surgical History: lymphadema - Social History Smoking Status: Never Smoker Substance Use Type: None - Medications Home Medications: Home Medications Medication Instructions Recorded Confirmed Last Taken Type Carvedilol [Coreg] 12.5 mg PO BID 10/18/17 11/17/17 1 Day Ago History ~10/17/17 12.5 Metformin HCl 1,000 mg PO BID 10/18/17 11/17/17 1 Day Ago History ~10/17/17 Rivaroxaban [Xarelto] 20 mg PO QDAY 10/18/17 11/17/17 2 Days Ago History ~10/16/17 Losartan [Cozaar] 25 mg PO QDAY 11/17/17 11/17/17 Unknown History Torsemide [Demadex] 20 mg PO BID 11/17/17 11/17/17 Unknown History HYDROmorphone [Dilaudid] 2 mg PO Q6H PRN #14 tablet 11/19/17 Unknown Rx ED Physical Exam - General Limitations: No Limitations General appearance: alert, anxious, obese - Head Head exam: Present: atraumatic, normocephalic - Eye Eye exam: Present: PERRL, EOMI - ENT ENT exam: Present: normal exam, normal orophraynx - Neck Neck exam: Present: normal inspection. Absent: tenderness, meningismus - Respiratory Respiratory exam: Present: other (crackles at base). Absent: respiratory distress, rhonchi, stridor - Cardiovascular Cardiovascular Exam: Present: regular rate, normal rhythm - GI/Abdominal GI/Abdominal exam: Present: soft. Absent: distended, tenderness, guarding, rebound, rigid, mass, pulsatile mass - Extremities Exam Extremities exam: Present: normal capillary refill, pedal edema. Absent: joint swelling - Back Exam Back exam: Present: normal inspection. Absent: CVA tenderness (L), muscle spasm , paraspinal tenderness, vertebral tenderness - Neurological Exam Neurological exam: Present: alert, oriented X3, CN II-XII intact. Absent: motor sensory deficit ED Course Vital Signs 01/04/18 14:58 Temperature 97.5 F L Pulse Rate 70 Respiratory 22 Rate Blood Pressure 133/71 O2 Sat by Pulse 98 Oximetry ED Medical Decision Making - Lab Data Result diagrams: 01/04/18 15:44 01/04/18 15:44 - EKG Data -: EKG Interpreted by Me - EKG Data Interpretation: other (no acute ischemic change occasional PVCs) - Radiology Data Radiology results: report reviewed - Medical Decision Making Patient with chest pain will need admission for further evaluation he is therapeutic on his Coumadin his initial troponin was negative his BMP is elevated he did have exertional chest pain earlier case was discussed with Dr. Browning will admit for further evaluation of chest pain Critical care attestation.: If time is entered above; I have spent that time in minutes in the direct care of this critically ill patient, excluding procedure time. ED Disposition Clinical Impression: Chest pain Disposition: OP ADMIT IP TO THIS HOSP Is pt being admited?: Yes Condition: Stable Instructions: Chest Pain (ED) Referrals: PRIMARY CARE, [Primary Care Provider] - 3-5 Days Time of Disposition: 17:22
[2018-01-04 16:31] LABS: Red Blood Count 5.42 M/mm3 (3.65-5.03)
[2018-01-04 16:32] LABS: Hematocrit 40.4 % (35.5-45.6); Hemoglobin 12.3 gm/dl (11.8-15.2); Mean Corpuscular HGB Conc 31 % (32-34); Mean Corpuscular Hemoglobin 23 pg (28-32); Mean Corpuscular Volume 75 fl (84-94); Platelet Count 260 K/mm3 (140-440); Red Cell Distribution Width 15.6 % (13.2-15.2)
[2018-01-04 16:59] LABS: Alanine Aminotransferase 14 units/L (7-56); Albumin 3.9 g/dL (3.9-5)
[2018-01-04 17:00] LABS: Total Cells Counted 100
[2018-01-04 17:02] LABS: Bilirubin,Direct < 0.2 mg/dL (0-0.2); Platelet Estimate Consistent w Auto
[2018-01-04] MEDS ORDERED: DUONEB *Not for PRN Use IH ONE ×2 (17:16→19:16)
[2018-01-04] MEDS ORDERED: ZOFRAN IV ONE (17:16)
[2018-01-04] MEDS ORDERED: LASIX IV ONE (17:17)
[2018-01-04] MEDS ORDERED: NITRO-BID 2% TP ONE (17:17)
[2018-01-04] MEDS: MORPHINE IV PRN ×2 (18:34→21:17)
[2018-01-04] MEDS ORDERED: PERCOCET 5/325 PO PRN (22:26)
[2018-01-05] MEDS: MORPHINE IV PRN ×4 (00:21→20:36)
--- NOTE | 2018-01-05 00:52 | History and Physical Report ---
History of Present Illness Date of examination: 01/04/18 Date of admission: 01/04/18 18:33 Chief complaint: CC SOB and CP 1 day History of present illness: History of Present Illness: 32-year-old morbidly obese history of cardiomyopathy with some left-sided chest pain that started at rest this morning at 6 AM he says it got worse when he was out doing his morning walk he is not sure if it was sudden he's not sure if it' s exertional is not sure if it's worse with rest or exertion. It is left-sided he apparently had a cardiac catheterization several months ago that did not apparently show significant disease he does have a history of DVT he says he has been taking his medicine he is here for some intermittent shortness of breath and left-sided chest pain and he increased his diuretic -: Gradual, hour(s), unknown Radiation: non-radiation Quality: burning, stabbing, aching Consistency: constant Worsens with: movement Associated Symptoms: chest pain, shortness of breath. denies: diaphoresis, fever/chills, malaise, nausea/vomiting, rash, seizure, syncope Past Medical History Hx Hypertension: Yes Hx Heart Attack/AMI: Yes Hx Congestive Heart Failure: Yes Hx Diabetes: Yes Hx Deep Vein Thrombosis: Yes Surgical History Hx Pacemaker: Yes Hx Internal Defibrillator: Yes Additional Surgical History: lymphadema Social History Smoking Status: Never Smoker Substance Use Type: None Medications Home Medications: Home Medications Medication Instructions Recorded Confirmed Last Taken Type Carvedilol [Coreg] 12.5 mg PO BID 10/18/17 11/17/17 1 Day Ago History ~10/17/17 12.5 Metformin HCl 1,000 mg PO BID 10/18/17 11/17/17 1 Day Ago History ~10/17/17 Rivaroxaban [Xarelto] 20 mg PO QDAY 10/18/17 11/17/17 2 Days Ago History ~10/16/17 Losartan [Cozaar] 25 mg PO QDAY 11/17/17 11/17/17 Unknown History Torsemide [Demadex] 20 mg PO BID 11/17/17 11/17/17 Unknown History HYDROmorphone [Dilaudid] 2 mg PO Q6H PRN #14 tablet 11/19/17 Unknown Rx Review of Systems ROS: Stated complaint: CHEST/LEG PAIN/SOB Other details as noted in HPI Comment: All other systems reviewed and negative Constitutional: denies: diaphoresis, fever, malaise Eyes: denies: eye discharge, vision change ENT: denies: dental pain, hearing loss, epistaxis Respiratory: cough, orthopnea, shortness of breath. denies: stridor Cardiovascular: chest pain. denies: palpitations, dyspnea on exertion, orthopnea, edema, syncope, paroxysmal nocturnal dyspnea Gastrointestinal: denies: abdominal pain, nausea, vomiting, diarrhea, constipation, hematemesis, melena, hematochezia Neurological: denies: headache, weakness, numbness, paresthesias, confusion, abnormal gait, vertigo Medications and Allergies Allergies Allergy/AdvReac Type Severity Reaction Status Date / Time No Known Allergies Allergy Unverified 10/18/17 00:25 Home Medications Medication Instructions Recorded Confirmed Last Taken Type Carvedilol [Coreg] 12.5 mg PO BID 10/18/17 01/04/18 1 Day Ago History ~10/17/17 12.5 Metformin HCl 1,000 mg PO BID 10/18/17 01/04/18 1 Day Ago History ~10/17/17 Losartan [Cozaar] 25 mg PO QDAY 11/17/17 01/04/18 Unknown History Torsemide [Demadex] 40 mg PO BID 11/17/17 01/04/18 Unknown History Oxycodone HCl/Acetaminophen 1 each PO Q4H 01/04/18 01/04/18 Unknown History [Percocet 10/325 mg] Active Meds: Active Medications Morphine Sulfate (Morphine) 2 mg IV Q5MIN PRN PRN Reason: Chest Pain Last Admin: 01/05/18 00:21 Dose: 2 mg Oxycodone/Acetaminophen (Percocet 5/325) 2 tab PO Q6H PRN PRN Reason: Pain, Moderate (4-6) Last Admin: 01/04/18 22:59 Dose: 2 tab Exam - Constitutional Vitals: Temp Pulse Resp BP Pulse Ox 97.6 F 88 22 118/70 98 01/04/18 20:35 01/04/18 21:20 01/05/18 00:21 01/04/18 20:35 01/04/18 21:20 General appearance: Present: no acute distress, well-nourished - EENT Eyes: Present: PERRL ENT: hearing intact, clear oral mucosa - Neck Neck: Present: supple, normal ROM - Respiratory Respiratory effort: normal Respiratory: bilateral: CTA, rales - Cardiovascular Heart rate: 90 Rhythm: regular Heart Sounds: Present: S1 & S2. Absent: rub, click - Extremities Extremities: no ischemia, pulses intact, pulses symmetrical, No edema Peripheral Pulses: within normal limits - Abdominal General gastrointestinal: Present: soft, non-tender, non-distended, normal bowel sounds Male genitourinary: Present: normal - Rectal Rectal Exam: deferred - Integumentary Integumentary: Present: clear, warm, dry - Musculoskeletal Musculoskeletal: gait normal, strength equal bilaterally - Psychiatric Psychiatric: appropriate mood/affect, intact judgment & insight - Neurologic Neurologic: CNII-XII intact, moves all extremities - Allied Health Allied health notes reviewed: nursing, case management Results - Labs CBC & Chem 7: 01/04/18 15:44 01/04/18 15:44 Labs: Laboratory Last Values WBC 6.7 K/mm3 (4.5-11.0) 01/04/18 15:44 RBC 5.42 M/mm3 (3.65-5.03) H 01/04/18 15:44 Hgb 12.3 gm/dl (11.8-15.2) 01/04/18 15:44 Hct 40.4 % (35.5-45.6) 01/04/18 15:44 MCV 75 fl (84-94) L 01/04/18 15:44 MCH 23 pg (28-32) L 01/04/18 15:44 MCHC 31 % (32-34) L 01/04/18 15:44 RDW 15.6 % (13.2-15.2) H 01/04/18 15:44 Plt Count 260 K/mm3 (140-440) 01/04/18 15:44 Add Manual Diff Complete 01/04/18 15:44 Total Counted 100 01/04/18 15:44 Seg Neuts % (Manual) 55.0 % (40.0-70.0) 01/04/18 15:44 Band Neutrophils % 0 % 01/04/18 15:44 Lymphocytes % (Manual) 40.0 % (13.4-35.0) H 01/04/18 15:44 Reactive Lymphs % (Man) 0 % 01/04/18 15:44 Monocytes % (Manual) 3.0 % (0.0-7.3) 01/04/18 15:44 Eosinophils % (Manual) 1.0 % (0.0-4.3) 01/04/18 15:44 Basophils % (Manual) 1.0 % (0.0-1.8) 01/04/18 15:44 Metamyelocytes % 0 % 01/04/18 15:44 Myelocytes % 0 % 01/04/18 15:44 Promyelocytes % 0 % 01/04/18 15:44 Blast Cells % 0 % 01/04/18 15:44 Nucleated RBC % Not Reportable 01/04/18 15:44 Seg Neutrophils # Man 3.7 K/mm3 (1.8-7.7) 01/04/18 15:44 Band Neutrophils # 0.0 K/mm3 01/04/18 15:44 Lymphocytes # (Manual) 2.7 K/mm3 (1.2-5.4) 01/04/18 15:44 Abs React Lymphs (Man) 0.0 K/mm3 01/04/18 15:44 Monocytes # (Manual) 0.2 K/mm3 (0.0-0.8) 01/04/18 15:44 Eosinophils # (Manual) 0.1 K/mm3 (0.0-0.4) 01/04/18 15:44 Basophils # (Manual) 0.1 K/mm3 (0.0-0.1) 01/04/18 15:44 Metamyelocytes # 0.0 K/mm3 01/04/18 15:44 Myelocytes # 0.0 K/mm3 01/04/18 15:44 Promyelocytes # 0.0 K/mm3 01/04/18 15:44 Blast Cells # 0.0 K/mm3 01/04/18 15:44 WBC Morphology Not Reportable 01/04/18 15:44 Hypersegmented Neuts Not Reportable 01/04/18 15:44 Hyposegmented Neuts Not Reportable 01/04/18 15:44 Hypogranular Neuts Not Reportable 01/04/18 15:44 Smudge Cells Not Reportable 01/04/18 15:44 Toxic Granulation Not Reportable 01/04/18 15:44 Toxic Vacuolation Not Reportable 01/04/18 15:44 Dohle Bodies Not Reportable 01/04/18 15:44 Pelger-Huet Anomaly Not Reportable 01/04/18 15:44 Leslie Rods Not Reportable 01/04/18 15:44 Platelet Estimate Consistent w auto 01/04/18 15:44 Clumped Platelets Not Reportable 01/04/18 15:44 Plt Clumps, EDTA Not Reportable 01/04/18 15:44 Large Platelets Not Reportable 01/04/18 15:44 Giant Platelets Not Reportable 01/04/18 15:44 Platelet Satelliting Not Reportable 01/04/18 15:44 Plt Morphology Comment Not Reportable 01/04/18 15:44 RBC Morphology Not Reportable 01/04/18 15:44 Dimorphic RBCs Not Reportable 01/04/18 15:44 Polychromasia Not Reportable 01/04/18 15:44 Hypochromasia Not Reportable 01/04/18 15:44 Poikilocytosis Not Reportable 01/04/18 15:44 Anisocytosis Not Reportable 01/04/18 15:44 Microcytosis 1+ 01/04/18 15:44 Macrocytosis Not Reportable 01/04/18 15:44 Spherocytes Not Reportable 01/04/18 15:44 Pappenheimer Bodies Not Reportable 01/04/18 15:44 Sickle Cells Not Reportable 01/04/18 15:44 Target Cells Not Reportable 01/04/18 15:44 Tear Drop Cells Not Reportable 01/04/18 15:44 Ovalocytes Not Reportable 01/04/18 15:44 Helmet Cells Not Reportable 01/04/18 15:44 Jackson-[place]mendorf Bodies Not Reportable 01/04/18 15:44 Randolph Rings Not Reportable 01/04/18 15:44 Joseline Cells Not Reportable 01/04/18 15:44 Bite Cells Not Reportable 01/04/18 15:44 Crenated Cell Not Reportable 01/04/18 15:44 Elliptocytes Not Reportable 01/04/18 15:44 Acanthocytes (Spur) Not Reportable 01/04/18 15:44 Rouleaux Not Reportable 01/04/18 15:44 Hemoglobin C Crystals Not Reportable 01/04/18 15:44 Schistocytes Not Reportable 01/04/18 15:44 Malaria parasites Not Reportable 01/04/18 15:44 Cliff Bodies Not Reportable 01/04/18 15:44 Hem Pathologist Commnt No 01/04/18 15:44 PT 25.8 Sec. (12.2-14.9) H 01/04/18 15:44 INR 2.19 (0.87-1.13) H 01/04/18 15:44 APTT 37.2 Sec. (24.2-36.6) H 01/04/18 15:44 Sodium 137 mmol/L (137-145) 01/04/18 15:44 Potassium 4.1 mmol/L (3.6-5.0) 01/04/18 15:44 Chloride 100.8 mmol/L (98-107) 01/04/18 15:44 Carbon Dioxide 21 mmol/L (22-30) L 01/04/18 15:44 Anion Gap 19 mmol/L 01/04/18 15:44 BUN 24 mg/dL (9-20) H 01/04/18 15:44 Creatinine 1.2 mg/dL (0.8-1.5) 01/04/18 15:44 Estimated GFR > 60 ml/min 01/04/18 15:44 BUN/Creatinine Ratio 20 % 01/04/18 15:44 Glucose 158 mg/dL (75-100) H 01/04/18 15:44 POC Glucose 157 (70-105) H 01/04/18 20:41 Calcium 9.2 mg/dL (8.4-10.2) 01/04/18 15:44 Total Bilirubin 0.40 mg/dL (0.1-1.2) 01/04/18 15:44 Direct Bilirubin < 0.2 mg/dL (0-0.2) 01/04/18 15:44 Indirect Bilirubin 0.2 mg/dL 01/04/18 15:44 AST 16 units/L (5-40) 01/04/18 15:44 ALT 14 units/L (7-56) 01/04/18 15:44 Alkaline Phosphatase 53 units/L (35-129) 01/04/18 15:44 Troponin T < 0.010 ng/mL (0.00-0.029) 01/04/18 20:56 NT-Pro-B Natriuret Pep 2005 pg/mL (0-450) H 01/04/18 15:44 Total Protein 7.8 g/dL (6.3-8.2) 01/04/18 15:44 Albumin 3.9 g/dL (3.9-5) 01/04/18 15:44 Albumin/Globulin Ratio 1.0 % 01/04/18 15:44 - Imaging and Cardiology EKG: report reviewed Chest x-ray: report reviewed Assessment and Plan Advance Directives: Yes (Full code) VTE prophylaxis?: Chemical - Patient Problems (1) Acute combined systolic (congestive) and diastolic (congestive) heart failure Current Visit: Yes Status: Acute Plan to address problem: IV Lasix for now Cardiology consult ECHO ordered (2) Chest pain Current Visit: Yes Status: Acute Plan to address problem: Chest pain w/u (3) HTN (hypertension) Current Visit: Yes Status: Chronic Qualifiers: Hypertension type: essential hypertension Qualified Code(s): I10 - Essential (primary) hypertension Plan to address problem: Cont antihypertensives (4) T2DM (type 2 diabetes mellitus) Current Visit: Yes Status: Chronic Qualifiers: Diabetes mellitus termite treater insulin use: without termite treater use Plan to address problem: On metformin (5) DVT prophylaxis Current Visit: Yes Status: Acute Plan to address problem: On Lovenox
[2018-01-05] MEDS ORDERED: SODIUM CHLORIDE FLUSH SYRINGE 10 ML IV PRN (00:59)
[2018-01-05] MEDS ORDERED: ZOFRAN IV PRN (00:59)
[2018-01-05] MEDS ORDERED: TYLENOL PO PRN (00:59)
[2018-01-05] MEDS ORDERED: NON-FORMULARY (Oxycodone Hcl/Acetaminophen [Percocet 10/325 Mg] 1 EACH) PO SCH (01:00)
[2018-01-05] MEDS ORDERED: NON-FORMULARY (Torsemide [Demadex] 40 MG) PO SCH (01:00)
[2018-01-05 02:08] LABS: Hemoglobin 12.1 gm/dl (11.8-15.2); Mean Corpuscular HGB Conc 31 % (32-34); Mean Corpuscular Volume 74 fl (84-94); Platelet Count 231 K/mm3 (140-440); Red Blood Count 5.24 M/mm3 (3.65-5.03); Red Cell Distribution Width 15.8 % (13.2-15.2)
[2018-01-05] MEDS: K-DUR PO SCH ×3 (02:10→21:56)
[2018-01-05] MEDS: COREG PO SCH ×3 (02:11→21:56)
[2018-01-05 02:26] LABS: Alanine Aminotransferase 13 units/L (7-56); Albumin 3.9 g/dL (3.9-5); BUN/Creatinine Ratio 19; Blood Urea Nitrogen 23 mg/dL (9-20); Calcium 8.6 mg/dL (8.4-10.2); Hemolysis Index 8
[2018-01-05 02:49] LABS: Mean Corpuscular Hemoglobin 23 pg (28-32)
[2018-01-05 02:59] LABS: Basophils % (Manual) 0 % (0.0-1.8); Total Cells Counted 100
[2018-01-05 03:00] LABS: Hypochromasia 1+; Platelet Estimate Consistent w Auto
[2018-01-05] MEDS: LASIX IV SCH ×2 (05:32→17:42)
[2018-01-05] MEDS: PERCOCET 5/325 PO PRN ×4 (06:50→23:35)
[2018-01-05] MEDS: HumaLOG SUB-Q SCH ×4 (08:08→21:56)
[2018-01-05] MEDS: COZAAR PO SCH (09:38)
[2018-01-05] MEDS: GLUCOPHAGE PO SCH ×2 (09:38→17:41)
[2018-01-05] MEDS: PEPCID PO SCH ×2 (09:38→21:56)
[2018-01-05] MEDS: SODIUM CHLORIDE FLUSH SYRINGE 10 ML IV SCH ×2 (10:36→22:09)
--- NOTE | 2018-01-05 15:04 | Progress Note ---
Assessment and Plan Assessment and plan: 32-year-old morbidly obese history of cardiomyopathy with some left-sided chest pain that started at rest this morning at 6 AM he says it got worse when he was out doing his morning walk he is not sure if it was sudden he's not sure if it' s exertional is not sure if it's worse with rest or exertion. It is left-sided he apparently had a cardiac catheterization several months ago that did not apparently show significant disease he does have a history of DVT he says he has been taking his medicine he is here for some intermittent shortness of breath and left-sided chest pain and he increased his diuretic Acute combined systolic (congestive) and diastolic (congestive) heart failure IV Lasix for now Cardiology consult Chest pain HTN (hypertension) Cont antihypertensives T2DM (type 2 diabetes mellitus) On metformin DVT prophylaxis On [facility] Hospitalist Physical - Constitutional Vitals: Temp Pulse Resp BP Pulse Ox 97.6 F 74 20 108/57 94 01/05/18 12:21 01/05/18 12:21 01/05/18 12:21 01/05/18 12:21 01/05/18 12:21 General appearance: Present: no acute distress, well-nourished Results - Labs CBC & Chem 7: 01/05/18 01:37 01/06/18 14:11 Labs: Laboratory Last Values WBC 7.3 K/mm3 (4.5-11.0) 01/05/18 01:37 RBC 5.24 M/mm3 (3.65-5.03) H 01/05/18 01:37 Hgb 12.1 gm/dl (11.8-15.2) 01/05/18 01:37 Hct 39.0 % (35.5-45.6) 01/05/18 01:37 MCV 74 fl (84-94) L 01/05/18 01:37 MCH 23 pg (28-32) L 01/05/18 01:37 MCHC 31 % (32-34) L 01/05/18 01:37 RDW 15.8 % (13.2-15.2) H 01/05/18 01:37 Plt Count 231 K/mm3 (140-440) 01/05/18 01:37 Add Manual Diff Complete 01/05/18 01:37 Total Counted 100 01/05/18 01:37 Seg Neuts % (Manual) 46.0 % (40.0-70.0) 01/05/18 01:37 Band Neutrophils % 0 % 01/05/18 01:37 Lymphocytes % (Manual) 45.0 % (13.4-35.0) H 01/05/18 01:37 Reactive Lymphs % (Man) 0 % 01/05/18 01:37 Monocytes % (Manual) 8.0 % (0.0-7.3) H 01/05/18 01:37 Eosinophils % (Manual) 1.0 % (0.0-4.3) 01/05/18 01:37 Basophils % (Manual) 0 % (0.0-1.8) 01/05/18 01:37 Metamyelocytes % 0 % 01/05/18 01:37 Myelocytes % 0 % 01/05/18 01:37 Promyelocytes % 0 % 01/05/18 01:37 Blast Cells % 0 % 01/05/18 01:37 Nucleated RBC % Not Reportable 01/05/18 01:37 Seg Neutrophils # Man 3.4 K/mm3 (1.8-7.7) 01/05/18 01:37 Band Neutrophils # 0.0 K/mm3 01/05/18 01:37 Lymphocytes # (Manual) 3.3 K/mm3 (1.2-5.4) 01/05/18 01:37 Abs React Lymphs (Man) 0.0 K/mm3 01/05/18 01:37 Monocytes # (Manual) 0.6 K/mm3 (0.0-0.8) 01/05/18 01:37 Eosinophils # (Manual) 0.1 K/mm3 (0.0-0.4) 01/05/18 01:37 Basophils # (Manual) 0.0 K/mm3 (0.0-0.1) 01/05/18 01:37 Metamyelocytes # 0.0 K/mm3 01/05/18 01:37 Myelocytes # 0.0 K/mm3 01/05/18 01:37 Promyelocytes # 0.0 K/mm3 01/05/18 01:37 Blast Cells # 0.0 K/mm3 01/05/18 01:37 WBC Morphology Not Reportable 01/05/18 01:37 Hypersegmented Neuts Not Reportable 01/05/18 01:37 Hyposegmented Neuts Not Reportable 01/05/18 01:37 Hypogranular Neuts Not Reportable 01/05/18 01:37 Smudge Cells Not Reportable 01/05/18 01:37 Toxic Granulation Not Reportable 01/05/18 01:37 Toxic Vacuolation Not Reportable 01/05/18 01:37 Dohle Bodies Not Reportable 01/05/18 01:37 Pelger-Huet Anomaly Not Reportable 01/05/18 01:37 Leslie Rods Not Reportable 01/05/18 01:37 Platelet Estimate Consistent w auto 01/05/18 01:37 Clumped Platelets Not Reportable 01/05/18 01:37 Plt Clumps, EDTA Not Reportable 01/05/18 01:37 Large Platelets Not Reportable 01/05/18 01:37 Giant Platelets Not Reportable 01/05/18 01:37 Platelet Satelliting Not Reportable 01/05/18 01:37 Plt Morphology Comment Not Reportable 01/05/18 01:37 RBC Morphology Not Reportable 01/05/18 01:37 Dimorphic RBCs Not Reportable 01/05/18 01:37 Polychromasia Not Reportable 01/05/18 01:37 Hypochromasia 1+ 01/05/18 01:37 Poikilocytosis Not Reportable 01/05/18 01:37 Anisocytosis Not Reportable 01/05/18 01:37 Microcytosis Not Reportable 01/05/18 01:37 Macrocytosis Not Reportable 01/05/18 01:37 Spherocytes Not Reportable 01/05/18 01:37 Pappenheimer Bodies Not Reportable 01/05/18 01:37 Sickle Cells Not Reportable 01/05/18 01:37 Target Cells Not Reportable 01/05/18 01:37 Tear Drop Cells Not Reportable 01/05/18 01:37 Ovalocytes Not Reportable 01/05/18 01:37 Helmet Cells Not Reportable 01/05/18 01:37 Jackson-Judsonia Bodies Not Reportable 01/05/18 01:37 Cherokee Rings Not Reportable 01/05/18 01:37 [place] Cells Not Reportable 01/05/18 01:37 Bite Cells Not Reportable 01/05/18 01:37 Crenated Cell Not Reportable 01/05/18 01:37 Elliptocytes Not Reportable 01/05/18 01:37 Acanthocytes (Spur) Not Reportable 01/05/18 01:37 Rouleaux Not Reportable 01/05/18 01:37 Hemoglobin C Crystals Not Reportable 01/05/18 01:37 Schistocytes Not Reportable 01/05/18 01:37 Malaria parasites Not Reportable 01/05/18 01:37 Cliff Bodies Not Reportable 01/05/18 01:37 Hem Pathologist Commnt No 01/05/18 01:37 PT 25.8 Sec. (12.2-14.9) H 01/04/18 15:44 INR 2.19 (0.87-1.13) H 01/04/18 15:44 APTT 37.2 Sec. (24.2-36.6) H 01/04/18 15:44 Sodium 139 mmol/L (137-145) 01/05/18 01:37 Potassium 4.3 mmol/L (3.6-5.0) 01/05/18 01:37 Chloride 103.2 mmol/L (98-107) 01/05/18 01:37 Carbon Dioxide 24 mmol/L (22-30) 01/05/18 01:37 Anion Gap 16 mmol/L 01/05/18 01:37 BUN 23 mg/dL (9-20) H 01/05/18 01:37 Creatinine 1.2 mg/dL (0.8-1.5) 01/05/18 01:37 Estimated GFR > 60 ml/min 01/05/18 01:37 BUN/Creatinine Ratio 19 % 01/05/18 01:37 Glucose 136 mg/dL (75-100) H 01/05/18 01:37 POC Glucose 123 (70-105) H 01/05/18 12:33 Hemoglobin A1c 7.4 % (4-6) H 01/05/18 01:37 Calcium 8.6 mg/dL (8.4-10.2) 01/05/18 01:37 Total Bilirubin 0.30 mg/dL (0.1-1.2) 01/05/18 01:37 Direct Bilirubin < 0.2 mg/dL (0-0.2) 01/04/18 15:44 Indirect Bilirubin 0.2 mg/dL 01/04/18 15:44 AST 12 units/L (5-40) 01/05/18 01:37 ALT 13 units/L (7-56) 01/05/18 01:37 Alkaline Phosphatase 50 units/L (35-129) 01/05/18 01:37 Troponin T < 0.010 ng/mL (0.00-0.029) 01/04/18 20:56 NT-Pro-B Natriuret Pep 2005 pg/mL (0-450) H 01/04/18 15:44 Total Protein 6.5 g/dL (6.3-8.2) 01/05/18 01:37 Albumin 3.9 g/dL (3.9-5) 01/05/18 01:37 Albumin/Globulin Ratio 1.5 % 01/05/18 01:37
[2018-01-05] MEDS ORDERED: LOVENOX SUB-Q SCH (22:00)
[2018-01-05] MEDS: ROXICODONE PO PRN (23:35)
[2018-01-06] MEDS: LASIX IV SCH ×2 (06:55→17:00)
[2018-01-06] MEDS: ROXICODONE PO PRN (06:56)
[2018-01-06] MEDS: PERCOCET 5/325 PO PRN ×2 (06:56→13:02)
[2018-01-06] MEDS: HumaLOG SUB-Q SCH ×3 (09:00→17:01)
[2018-01-06] MEDS: COZAAR PO SCH (09:26)
[2018-01-06] MEDS: PEPCID PO SCH (09:26)
[2018-01-06] MEDS: GLUCOPHAGE PO SCH ×2 (09:26→17:00)
[2018-01-06] MEDS: K-DUR PO SCH (09:26)
[2018-01-06] MEDS: COREG PO SCH (09:27)
[2018-01-06] MEDS: SODIUM CHLORIDE FLUSH SYRINGE 10 ML IV SCH (09:27)
[2018-01-06] MEDS: MORPHINE IV PRN ×2 (09:28→17:00)
--- NOTE | 2018-01-06 11:21 | Consultation ---
History of Present Illness Consult date: 01/06/18 Requesting physician: SAMREEN AARON Consult reason: congestive heart failure History of present illness: The pt is a 32 YO male with a past medical history significant for chronic systolic heart failure, dilated NICMP, AICD in situ, HTN, DM, h/o DVT, anticoagulated with xarelto, obesity. He has been seen by our practice on prior hospitalizations and follows a nursing care attendant at [facility]. He presented with c/o left-sided chest pain and right leg pain after playing basketball 2 days ago. He has chronic shortness of breath and dyspnea on exertion which is unchanged. Troponin negative x 3. BNP 2004. Pt underwent LHC in 04/2016 at [facility] which showed no angiographic evidence of CAD, EF 25%. Echo done in 10/2017 showed EF 15%, trace MR, trace TR, LV severely dilated, mild LVH, pseudonormalization. Past History Past Medical History: diabetes, DVT (NICMP ), heart failure, hypertension, other Past Surgical History: Other (AICD) Social history: single. denies: lives with family, smoking, alcohol abuse, prescription drug abuse, IV drug use Family history: no significant family history Medications and Allergies Allergies Allergy/AdvReac Type Severity Reaction Status Date / Time No Known Allergies Allergy Unverified 10/18/17 00:25 Home Medications Medication Instructions Recorded Confirmed Last Taken Type Carvedilol [Coreg] 12.5 mg PO BID 10/18/17 01/04/18 1 Day Ago History ~10/17/17 12.5 Metformin HCl 1,000 mg PO BID 10/18/17 01/04/18 1 Day Ago History ~10/17/17 Losartan [Cozaar] 25 mg PO QDAY 11/17/17 01/04/18 Unknown History Torsemide [Demadex] 40 mg PO BID 11/17/17 01/04/18 Unknown History Oxycodone HCl/Acetaminophen 1 each PO Q6H 01/04/18 01/05/18 Unknown History [Percocet 10/325 mg] Warfarin [Coumadin] 5 mg PO BID 01/05/18 01/05/18 Unknown History Active Meds: Active Medications Acetaminophen (Tylenol) 650 mg PO Q4H PRN PRN Reason: Pain MILD(1-3)/Fever >100.5/ROBERSON Carvedilol (Coreg) 12.5 mg PO BID [facility] Last Admin: 01/06/18 09:27 Dose: 12.5 mg Enoxaparin Sodium (Lovenox) 40 mg SUB-Q QDAY@2200 [facility] Last Admin: 01/05/18 21:56 Dose: 40 mg Famotidine (Pepcid) 10 mg PO BID [facility] Last Admin: 01/06/18 09:26 Dose: 10 mg Furosemide (Lasix) 40 mg IV 0600,1800 [facility] Last Admin: 01/06/18 06:55 Dose: 40 mg Hydralazine HCl (Apresoline) 25 mg PO BID [facility] Insulin Human Lispro (Humalog) 0 unit SUB-Q ACHS [facility]; Protocol Last Admin: 01/06/18 09:00 Dose: Not Given Losartan Potassium (Cozaar) 25 mg PO QDAY [facility] Last Admin: 01/06/18 09:26 Dose: 25 mg Metformin HCl (Glucophage) 1,000 mg PO BIDDIAB [facility] Last Admin: 01/06/18 09:26 Dose: 1,000 mg Morphine Sulfate (Morphine) 2 mg IV Q4H PRN PRN Reason: Pain, Moderate (4-6) Last Admin: 01/06/18 09:28 Dose: 2 mg Ondansetron HCl (Zofran) 4 mg IV Q8H PRN PRN Reason: Nausea And Vomiting Oxycodone HCl (Roxicodone) 5 mg PO Q4H PRN PRN Reason: Pain, Moderate (4-6) Last Admin: 01/06/18 06:56 Dose: 5 mg Oxycodone/Acetaminophen (Percocet 5/325) 1 tab PO Q4H PRN PRN Reason: Pain, Moderate (4-6) Last Admin: 01/06/18 06:56 Dose: 1 tab Potassium Chloride (K-Dur) 20 meq PO Q12HR [facility] Last Admin: 01/06/18 09:26 Dose: 20 meq Sodium Chloride (Sodium Chloride Flush Syringe 10 Ml) 10 ml IV BID [facility] Last Admin: 01/06/18 09:27 Dose: 10 ml Sodium Chloride (Sodium Chloride Flush Syringe 10 Ml) 10 ml IV PRN PRN PRN Reason: LINE FLUSH Review of Systems Constitutional: no fever, no chills Ears, nose, mouth and throat: no ear pain, no ear discharge, no tinnitis Cardiovascular: chest pain, shortness of breath, dyspnea on exertion, leg edema Respiratory: shortness of breath, dyspnea on exertion, no cough, no congestion, no wheezing Gastrointestinal: no abdominal pain, no nausea, no vomiting, no diarrhea Genitourinary Male: no dysuria, no hematuria Musculoskeletal: no neck stiffness, no neck pain Integumentary: no rash, no pruritis Neurological: no parathesias, no numbness, no tingling, no seizures, no headaches Endocrine: no cold intolerance, no heat intolerance Hematologic/Lymphatic: no easy bruising, no easy bleeding Allergic/Immunologic: no urticaria, no wheezing Physical Examination Vital Signs Temp Pulse Resp BP Pulse Ox 97.5 F L 70 22 133/71 98 01/04/18 14:58 01/04/18 14:58 01/04/18 14:58 01/04/18 14:58 01/04/18 14:58 General appearance: no acute distress HEENT: Positive: PERRL, Normocephaly, Mucus Membranes Moist Neck: Positive: neck supple, trachea midline Cardiac: Positive: Reg Rate and Rhythm, S1/S2 Lungs: Positive: clear to auscultation Neuro: Positive: Grossly Intact Abdomen: Positive: Soft, Active Bowel Sounds. Negative: Tender Skin: Positive: Clear. Negative: Rash Extremities: Present: +2 Edema (left leg), +3 Edema (right leg-lymphedema) Results 01/05/18 01:37 01/05/18 01:37 - Imaging and Cardiology Echo: report reviewed (10/2017 showed EF 15%, trace MR, trace TR, LV severely dilated, mild LVH, pseudonormalization) EKG: image reviewed EKG interpretations - Telemetry EKG Rhythm: Sinus Rhythm - EKG Sinus rhythms and dysrhythmias: sinus rhythm Assessment and Plan Assessment: Chest pain, atypical - ECG with NAF; Nicol negative for AMI Chronic HFrEF, EF 15% - currently compensated Dilated NICMP AICD in situ NSVT HTN DM H/o DVT, anticoagulated with coumadin-->will resume (goal INR 2-3) Obesity Plan: Resume coumadin, goal INR 2-3. Will initiate low dose imdur and hydralazine as part of his heart failure regimen. Currently stable cardiac status. Recommend pt follow up with his primary nursing care attendant within 1-2 weeks of hospital discharge. Assessment and plan reviewed with pt at bedside. The patient has been seen in conjunction with Dr. Domínguez who agrees with the assessment and plan of care.
[2018-01-06] MEDS ORDERED: IMDUR PO SCH (14:00)
[2018-01-06] MEDS ORDERED: APRESOLINE PO SCH (14:00)
[2018-01-06 14:52] LABS: BUN/Creatinine Ratio 19; Blood Urea Nitrogen 25 mg/dL (9-20); Calcium 8.9 mg/dL (8.4-10.2); Hemolysis Index 14
[2018-01-06 16:16] LABS: INR 1.77 (0.87-1.13)
[2018-01-06 16:49] VITALS: BP 130/61
[2018-01-06] MEDS ORDERED: COUMADIN PO SCH (17:00)
--- NOTE | 2018-01-06 18:46 | Discharge Summary ---
Providers - Providers Date of Admission: 01/04/18 18:33 Attending physician: SAMREEN AARON MD 01/05/18 15:05 Consult to Physician [CONS] Routine Comment: Consulting Provider: [place] Physician Instructions: Reason For Exam: chf Primary care physician: COUNSELOR/ART THERAPIST Hospitalization Condition: Stable Exam - Constitutional Vitals: Temp Pulse Resp BP Pulse Ox 97.9 F 75 17 130/61 94 01/06/18 16:05 01/06/18 16:05 01/06/18 17:00 01/06/18 16:05 01/06/18 16:05 Plan Follow up with: PRIMARY CARE, [Primary Care Provider] - 3-5 Days Prescriptions: hydrALAZINE [Apresoline TAB] 25 mg PO BID #60 tablet ISOSORBIDE MONOnitrate [Imdur ER] 30 mg PO QDAY #30 tablet
== END 2018-01-06 19:50 | disposition home or self-care (01) | DRG 292 ==
LOC: ED 14:41 → 4A 18:33
PROVIDERS: ADMIT Internal Medicine; ATTEND Internal Medicine
DX: I11.0 Hypertensive heart disease with heart failure (principal); Z68.44 Body mass index [BMI] 60.0-69.9, adult; I50.41 Acute combined systolic (congestive) and diastolic (congestive) heart failure; I42.0 Dilated cardiomyopathy; M79.604 Pain in right leg; E11.9 Type 2 diabetes mellitus without complications; E66.01 Morbid (severe) obesity due to excess calories; Z79.899 Other long term (current) drug therapy; Z95.810 Presence of automatic (implantable) cardiac defibrillator; Z86.718 Personal history of other venous thrombosis and embolism; Z79.01 Long term (current) use of anticoagulants
CPT/HCPCS: 36415; 71046; 80048; 80053; 80074; 82962; 83036; 83735; 83880; 84484; 85007; 85025; 85610; 85730; 93005; 93010; 94640; J1650; J1940; J2270; J2405

== ENCOUNTER 2018-01-21 21:55 | Inpatient (IN) | payer OTHER ==
[2018-01-21] MEDS ORDERED: ASPIRIN PO ONE (22:24)
--- NOTE | 2018-01-21 23:46 | XRay Report ---
FINAL REPORT EXAM: XR CHEST 1V AP HISTORY: CP TECHNIQUE: upright single view chest PRIORS: Comparison is dated January 04, 2018 FINDINGS: Cardiac silhouette is prominent size. There is AICD/pacemaker noted. No focal pulmonary infiltrate is identified. No pleural fluid collection seen. Pulmonary vasculature is unremarkable. IMPRESSION: Cardiomegaly Pacemaker/AICD No acute pulmonary abnormality identified
[2018-01-21] MEDS ORDERED: MORPHINE IV ONE (23:59)
[2018-01-22 00:09] LABS: INR 1.2 (0.87-1.13)
[2018-01-22 00:10] LABS: Partial Thromboplastin Time 28.6 Sec. (24.2-36.6)
[2018-01-22 00:15] LABS: BUN/Creatinine Ratio 16; Blood Urea Nitrogen 22 mg/dL (9-20); Calcium 9.7 mg/dL (8.4-10.2); Hemolysis Index 13
[2018-01-22] MEDS ORDERED: DILAUDID IV ONE (00:15)
[2018-01-22 00:23] LABS: Basophils # (Auto) 0.1 K/mm3 (0.0-0.1); Basophils % (Auto) 1.1 % (0.0-1.8); Eosinophils # (Auto) 0.1 K/mm3 (0.0-0.4); Eosinophils % (Auto) 1.4 % (0.0-4.3); Hematocrit 42.2 % (35.5-45.6); Hemoglobin 13.3 gm/dl (11.8-15.2); Lymphocytes # (Auto) 1.7 K/mm3 (1.2-5.4); Lymphocytes % (Auto) 19.2 % (13.4-35.0); Mean Corpuscular HGB Conc 32 % (32-34); Mean Corpuscular Volume 73 fl (84-94); Monocytes # (Auto) 0.8 K/mm3 (0.0-0.8); Monocytes % (Auto) 9.8 % (0.0-7.3); Platelet Count 258 K/mm3 (140-440); Red Blood Count 5.74 M/mm3 (3.65-5.03); Red Cell Distribution Width 15.9 % (13.2-15.2)
[2018-01-22 00:26] LABS: Mean Corpuscular Hemoglobin 23 pg (28-32)
[2018-01-22] MEDS ORDERED: LOVENOX SUB-Q ONE (01:42)
--- NOTE | 2018-01-22 02:15 | Emergency Department Report ---
ED Chest Pain HPI - General Chief Complaint: Chest Pain Stated Complaint: CHEST PAIN / LEG PAIN Time Seen by Provider: 01/21/18 23:09 Source: patient Mode of arrival: Ambulatory Limitations: No Limitations - History of Present Illness Initial Comments: 32-year-old male presents to the emergency department with complaint of chest pain, shortness of breath and bilateral lower extremity pain and swelling. Patient says that he tried to lay down to sleep around 8 PM this evening and started having shortness of breath. Shortly after this he began having the other symptoms including upper midsternal chest pain with some radiation towards his left shoulder. He has a history of systolic CHF with an injection fraction of 15%, dilated nonischemic cardiomyopathy, AICD, hypertension, diabetes and previous DVT. The patient used to be on warfarin and says he knows of a right lower extremity DVT "behind the knee" but says that his acetylene operator recently stopped his blood thinner. His acetylene operator is , through [place]. He says that he took his Lasix prior to going to bed this evening. He did not take anything for his discomfort prior to presentation. No recent travel or sick contacts at home. Severity scale (0 -10): 0 - Related Data Home Medications Medication Instructions Recorded Confirmed Last Taken Carvedilol [Coreg] 12.5 mg PO BID 10/18/17 01/04/18 1 Day Ago ~10/17/17 12.5 Metformin HCl 1,000 mg PO BID 10/18/17 01/04/18 1 Day Ago ~10/17/17 Losartan [Cozaar] 25 mg PO QDAY 11/17/17 01/04/18 Unknown Torsemide [Demadex] 40 mg PO BID 11/17/17 01/04/18 Unknown Oxycodone HCl/Acetaminophen 1 each PO Q6H 01/04/18 01/05/18 Unknown [Percocet 10/325 mg] Warfarin [Coumadin] 5 mg PO BID 01/05/18 01/05/18 Unknown Previous Rx's Medication Instructions Recorded Last Taken Type ISOSORBIDE MONOnitrate [Imdur ER] 30 mg PO QDAY #30 tablet 01/06/18 Unknown Rx hydrALAZINE [Apresoline TAB] 25 mg PO BID #60 tablet 01/06/18 Unknown Rx Allergies Allergy/AdvReac Type Severity Reaction Status Date / Time No Known Allergies Allergy Unverified 10/18/17 00:25 Heart Score - HEART Score History: Moderately suspicious EKG: Non-specific Age: < 45 Risk factors: > 3 risk factors or hx of atherosclerotic disease Troponin: < normal limit HEART Score: 4 - Critical Actions Critical Actions: 4-6 pts:12-16.6% risk of adverse cardiac event. Should be admitted ED Review of Systems ROS: Stated complaint: CHEST PAIN / LEG PAIN Other details as noted in HPI Comment: All other systems reviewed and negative Constitutional: denies: chills, fever Eyes: denies: eye pain, eye discharge, vision change ENT: denies: ear pain, throat pain Respiratory: orthopnea, shortness of breath Cardiovascular: chest pain, edema Gastrointestinal: denies: abdominal pain, nausea, diarrhea Genitourinary: denies: urgency, dysuria Musculoskeletal: arthralgia, myalgia Skin: denies: rash, lesions Neurological: denies: headache, weakness, paresthesias ED Past Medical Hx - Past Medical History Previous Medical History?: Yes Hx Hypertension: Yes Hx Heart Attack/AMI: Yes Hx Congestive Heart Failure: Yes Hx Diabetes: Yes Hx Deep Vein Thrombosis: Yes (Right leg, pt is taking Warfarin) Hx Asthma: No Hx COPD: No Additional medical history: R sided chest tube, -infection in lung. defibrillator 10/2017. EJ 15% - Surgical History Past Surgical History?: Yes Hx Pacemaker: Yes Hx Internal Defibrillator: Yes Additional Surgical History: lymphadema - Social History Smoking Status: Never Smoker Substance Use Type: None - Medications Home Medications: Home Medications Medication Instructions Recorded Confirmed Last Taken Type Carvedilol [Coreg] 12.5 mg PO BID 10/18/17 01/04/18 1 Day Ago History ~10/17/17 12.5 Metformin HCl 1,000 mg PO BID 10/18/17 01/04/18 1 Day Ago History ~10/17/17 Losartan [Cozaar] 25 mg PO QDAY 11/17/17 01/04/18 Unknown History Torsemide [Demadex] 40 mg PO BID 11/17/17 01/04/18 Unknown History Oxycodone HCl/Acetaminophen 1 each PO Q6H 01/04/18 01/05/18 Unknown History [Percocet 10/325 mg] Warfarin [Coumadin] 5 mg PO BID 01/05/18 01/05/18 Unknown History ISOSORBIDE MONOnitrate [Imdur ER] 30 mg PO QDAY #30 tablet 01/06/18 Unknown Rx hydrALAZINE [Apresoline TAB] 25 mg PO BID #60 tablet 01/06/18 Unknown Rx ED Physical Exam - General Limitations: No Limitations - Other Other exam information: GENERAL: The patient is well-developed well-nourished. HENT: Normocephalic. Atraumatic. Patient has moist mucous membranes. EYES: Extraocular motions are intact. Pupils equal reactive to light bilaterally. NECK: Supple. Trachea is midline. CHEST/LUNGS: Clear to auscultation. There is no respiratory distress noted. Chest pain is not reproducible to palpation of chest wall. HEART/CARDIOVASCULAR: Regular. There is mild tachycardia. There is no murmur. ABDOMEN: Abdomen is soft, nontender. Patient has normal bowel sounds. Morbidly obese habitus. SKIN: There is some nonpitting swelling to bilateral lower extremities. NEURO: The patient is awake, alert, and oriented. The patient is cooperative. The patient has no focal neurologic deficits. The patient has normal speech and gait. MUSCULOSKELETAL: There is some tenderness palpation to the right ankle but not as deformity. There is no evidence of acute injury. ED Course Vital Signs 01/21/18 01/22/18 01/22/18 22:14 00:38 00:48 Temperature 99.3 F Pulse Rate 103 H 90 Respiratory 22 27 H 32 H Rate Blood Pressure 153/104 Blood Pressure 141/96 [Left] O2 Sat by Pulse 93 100 100 Oximetry 01/22/18 00:49 Temperature Pulse Rate Respiratory 25 H Rate Blood Pressure Blood Pressure [Left] O2 Sat by Pulse Oximetry SABRINA score - Sabrina Score Age > 65: (0) No Aspirin use within the Past 7 Days: (1) Yes 3 or more CAD Risk Factors: (1) Yes 2 or more Angina events in past 24 hrs: (1) Yes Known CAD with more than 50% Stenosis: (0) No Elevated Cardiac Markers: (0) No ST Deviation Greater than 0.5mm: (0) No SABRINA Score: 3 ED Medical Decision Making - Lab Data Result diagrams: 01/21/18 23:36 01/21/18 23:36 - EKG Data -: EKG Interpreted by Al EKG shows normal: sinus rhythm (with multiple PVCs), axis, intervals, QRS complexes (Q waves to the inferior leads, right bundle branch block), ST-T waves (T-wave inversions to the inferior and lateral leads) Rate: tachycardia (102 bpm) - EKG Data When compared to previous EKG there are: no significant change Interpretation: unchanged when compared t (01/04/18) - Radiology Data Radiology results: image reviewed interpreted by me: Chest x-ray shows moderate to large cardiomegaly. No obvious pleural effusions or pneumonia. - Medical Decision Making The patient, who has a significant cardiac history, presents with some orthopnea , lower extremity swelling, shortness of breath and chest pain. EKG does not show any ST elevation NH and is unchanged from previous. First troponin is negative. BNP is elevated greater than 2000 with his history of CHF and low ejection fraction. Chest x-ray does not show any pleural effusions or any other acute process at this time. He was given a dose of pain medication with only some mild relief of his discomfort. The patient does have an elevated d- dimer and history of right lower extremity DVT and is not currently on anticoagulation. However due to the patient's weight and his body habitus, unable to get CT angiography or ventilation perfusion scan done at this time. The patient will be covered with a loading dose of Lovenox for this evening. He will be admitted to the hospital for serial troponins and possible cardiac consultation. He was accepted for admission by the hospitalist, Dr. Vasquez. - Differential Diagnosis NH, PE, costochondritis, GERD, pneumonia, CHF Critical Care Time: No Critical care attestation.: If time is entered above; I have spent that time in minutes in the direct care of this critically ill patient, excluding procedure time. ED Disposition Clinical Impression: NICM (nonischemic cardiomyopathy), Morbid obesity Chest pain Qualifiers: Chest pain type: unspecified Qualified Code(s): R07.9 - Chest pain, unspecified Hypertension Qualifiers: Hypertension type: essential hypertension Qualified Code(s): I10 - Essential ( primary) hypertension Disposition: OP ADMIT IP TO THIS HOSP Is pt being admited?: Yes Condition: Fair Instructions: Chest Pain (ED), Hypertension (ED) Referrals: CRISTIANA HEMPHILL MD [Primary Care Provider] - 3-5 Days Time of Disposition: 02:17
[2018-01-22] MEDS ORDERED: TYLENOL PO PRN (02:30)
[2018-01-22] MEDS ORDERED: ZOFRAN IV PRN (02:30)
[2018-01-22] MEDS ORDERED: D50W (25GM) Syringe IV PRN (02:30)
[2018-01-22] MEDS ORDERED: SODIUM CHLORIDE FLUSH SYRINGE 10 ML IV PRN (02:30)
--- NOTE | 2018-01-22 02:35 | History and Physical Report ---
History of Present Illness Date of examination: 01/22/18 History of present illness: 32-year-old man with a history of hypertension, CHF, diabetes, coronary artery disease, history of DVT comes emergency room complaining of pain in his left neck which she describes as a sharp pain, constant, intensity 5/10, no radiation , better with IV Dilaudid, cannot identify exacerbating factor Admits to shortness of breath, no nausea vomiting, diaphoresis or palpitation. He had a cardiac cath this year which was normal. He was taken off Coumadin by his doctor because his doctor stated that he did not need it anymore, he was on Coumadin for DVT. He has not taken any Coumadin in the last 4 days. He complains of right leg pain, also stated that he twisted his left ankle. Patient was given a full dose Lovenox in the emergency room because his d-dimer was elevated but he was not able to hit on the CAT scan table Review of systems Constitutional: no weight loss, chills Ears, eyes, nose, mouth and throat: no nasal congestion, no nasal discharge, no sinus pressure, no vision change, no red eye. Neck: No neck pain or rigidity. Cardiovascular: no palpitations Respiratory: No cough, shortness of breath Gastrointestinal: no abdominal pain, hematochezia Genitourinary : no dysuria, frequency , no hematuria Musculoskeletal: no joint swelling or muscle ache Integumentary: no rash, no pruritis Neurological: no parathesias, no numbness, no focal weakness Endocrine: no cold or heat intolerance, no polyuria or polydipsia Hematologic/Lymphatic: no easy bruising, no easy bleeding, no gland swelling Allergic/Immunologic: no urticaria, no angioedema. PAST MEDICAL HISTORY: hypertension, CHF, diabetes, coronary artery disease, history of DVT PAST SURGICAL HISTORY: AICD SOCIAL HISTORY: Denies alcohol, tobacco, drugs FAMILY HISTORY: Hypertension Medications and Allergies Allergies Allergy/AdvReac Type Severity Reaction Status Date / Time No Known Allergies Allergy Unverified 10/18/17 00:25 Home Medications Medication Instructions Recorded Confirmed Last Taken Type Carvedilol [Coreg] 12.5 mg PO BID 10/18/17 01/04/18 1 Day Ago History ~10/17/17 12.5 Metformin HCl 1,000 mg PO BID 10/18/17 01/04/18 1 Day Ago History ~10/17/17 Losartan [Cozaar] 25 mg PO QDAY 11/17/17 01/04/18 Unknown History Torsemide [Demadex] 40 mg PO BID 11/17/17 01/04/18 Unknown History Oxycodone HCl/Acetaminophen 1 each PO Q6H 01/04/18 01/05/18 Unknown History [Percocet 10/325 mg] Warfarin [Coumadin] 5 mg PO BID 01/05/18 01/05/18 Unknown History ISOSORBIDE MONOnitrate [Imdur ER] 30 mg PO QDAY #30 tablet 01/06/18 Unknown Rx hydrALAZINE [Apresoline TAB] 25 mg PO BID #60 tablet 01/06/18 Unknown Rx Exam - Physical Exam Narrative exam: Gen. appearance: Patient lying in bed, no apparent distress HEENT: Normocephalic, atraumatic, pupils equally round and reactive to light, extraocular movement intact, and no sclericterus,. No JVD or thyromegaly or nodule,neck supple, no carotid bruit ,mucous membranes moist, no exudate or erythema Heart: S1, S2, regular rate and rhythm Lungs: Clear to auscultation bilaterally, breathing comfortable Abdomen: Positive bowel sounds, nontender, nondistended, no organomegaly Extremity: No edema, cyanosis, clubbing Skin: No rash, nodules, warm, dry Neuro: Oriented 3, cranial nerves II-12 intact, speech is fluent, motor and sensory intact - Constitutional Vitals: Temp Pulse Resp BP Pulse Ox 99.3 F 90 25 H 141/96 100 01/21/18 22:14 01/22/18 00:48 01/22/18 00:49 01/22/18 00:48 01/22/18 00:48 Results - Labs CBC & Chem 7: 01/21/18 23:36 01/21/18 23:36 Labs: Abnormal lab results 01/21/18 01/21/18 01/21/18 Range/Units 23:36 23:36 23:36 RBC 5.74 H (3.65-5.03) M/mm3 MCV 73 L (84-94) fl MCH 23 L (28-32) pg RDW 15.9 H (13.2-15.2) % [place] % (Auto) 9.8 H (0.0-7.3) % PT 15.9 H (12.2-14.9) Sec. INR 1.20 H (0.87-1.13) D-Dimer (0-234) ng/mlDDU BUN 22 H (9-20) mg/dL Glucose 161 H (75-100) mg/dL NT-Pro-B Natriuret Pep (0-450) pg/mL 01/21/18 01/22/18 Range/Units 23:36 01:19 RBC (3.65-5.03) M/mm3 MCV (84-94) fl MCH (28-32) pg RDW (13.2-15.2) % [place] % (Auto) (0.0-7.3) % PT (12.2-14.9) Sec. INR (0.87-1.13) D-Dimer 522.79 H (0-234) ng/mlDDU BUN (9-20) mg/dL Glucose (75-100) mg/dL NT-Pro-B Natriuret Pep 2412 H (0-450) pg/mL Assessment and Plan Assessment Unstable angina Right leg pain Coronary artery disease. CHF, stable Hypertension Diabetes Morbid obesity Plan Admit medicine Check cardiac enzymes, consult cardiology Check Doppler of the lower extremity Check fingersticks and initiate insulin sliding scale, IV morphine Continue appropriate outpatient medications DVT prophylaxis
[2018-01-22 03:34] LABS: Creatine Kinase MB 1.5 ng/mL (0.0-4.0)
[2018-01-22] MEDS: DILAUDID IV PRN ×5 (04:03→22:13)
[2018-01-22] MEDS ORDERED: MAGNESIUM SULFATE IV ONE (06:07)
[2018-01-22] MEDS ORDERED: COREG PO ONE (06:12)
[2018-01-22] MEDS ORDERED: MAGNESIUM SULFATE 2GM/50ML 2 GM/50 ML BAG IV ONE (06:15)
[2018-01-22 06:33] LABS: Hematocrit 39.7 % (35.5-45.6); Hemoglobin 12.5 gm/dl (11.8-15.2); Mean Corpuscular HGB Conc 31 % (32-34); Mean Corpuscular Volume 73 fl (84-94); Platelet Count 270 K/mm3 (140-440); Red Blood Count 5.42 M/mm3 (3.65-5.03); Red Cell Distribution Width 15.6 % (13.2-15.2)
[2018-01-22 06:34] LABS: Mean Corpuscular Hemoglobin 23 pg (28-32)
[2018-01-22] MEDS: DEMADEX PO SCH ×2 (06:36→17:08)
[2018-01-22 06:48] LABS: BUN/Creatinine Ratio 16; Blood Urea Nitrogen 21 mg/dL (9-20); Calcium 9.4 mg/dL (8.4-10.2); Hemolysis Index 41
[2018-01-22] MEDS: HumaLOG SUB-Q SCH ×4 (08:15→22:21)
[2018-01-22] MEDS: GLUCOPHAGE PO SCH ×2 (08:16→16:20)
[2018-01-22 08:50] LABS: Anisocytosis 1+; Basophils % (Manual) 0 % (0.0-1.8); Eosinophils % (Manual) 0 % (0.0-4.3); Hypochromasia 1+; Total Cells Counted 100
[2018-01-22 08:51] LABS: Platelet Estimate Cons
--- NOTE | 2018-01-22 09:51 | Consultation ---
History of Present Illness Consult date: 01/22/18 Requesting physician: MARIA GUADALUPE ZAYAS Consult reason: chest pain History of present illness: The pt is a 32 YO male with a past medical history significant for chronic systolic heart failure, dilated NICMP, AICD in situ, HTN, DM, chronic DVT, obesity, lymphedema. He has been seen by our practice on prior hospitalizations and follows at [facility]. He presented with c/o palpitations, chest pain and SOB. He reports that he was in bed last night when he noted the onset of palpitations and then chest pain. He got out of bed and noted increased SOB above baseline and thus decided to seek medical attention. He describes his chest pain as an intermittent, nonexertional, nonradiating left- sided pressure near his left clavicle. He denies any n/v, diaphoresis, dizziness or syncope. He reports compliance with his home medication regimen. Overnight, pt was noted to have very frequent PVCs and bouts of NSVT. Pt underwent LHC in 04/2016 at [facility] which showed no angiographic evidence of CAD, EF 25%. Echo done in 10/2017 showed EF 15%, trace MR, trace TR, LV severely dilated, mild LVH, pseudonormalization. Past History Past Medical History: diabetes, DVT (chronic), heart failure, hypertension Past Surgical History: Other (AICD) Social history: denies: smoking, alcohol abuse, prescription drug abuse Medications and Allergies Allergies Allergy/AdvReac Type Severity Reaction Status Date / Time No Known Allergies Allergy Unverified 10/18/17 00:25 Home Medications Medication Instructions Recorded Confirmed Last Taken Type Carvedilol [Coreg] 12.5 mg PO BID 10/18/17 01/04/18 1 Day Ago History ~10/17/17 12.5 Metformin HCl 1,000 mg PO BID 10/18/17 01/04/18 1 Day Ago History ~10/17/17 Losartan [Cozaar] 25 mg PO QDAY 11/17/17 01/04/18 Unknown History Torsemide [Demadex] 40 mg PO BID 11/17/17 01/04/18 Unknown History Oxycodone HCl/Acetaminophen 1 each PO Q6H 01/04/18 01/05/18 Unknown History [Percocet 10/325 mg] Warfarin [Coumadin] 5 mg PO BID 01/05/18 01/05/18 Unknown History ISOSORBIDE MONOnitrate [Imdur ER] 30 mg PO QDAY #30 tablet 01/06/18 Unknown Rx hydrALAZINE [Apresoline TAB] 25 mg PO BID #60 tablet 01/06/18 Unknown Rx Active Meds: Active Medications Acetaminophen (Tylenol) 650 mg PO Q4H PRN PRN Reason: Pain MILD(1-3)/Fever >100.5/ROBERSON Carvedilol (Coreg) 12.5 mg PO BID [facility] Dextrose (D50w (25gm) Syringe) 50 ml IV PRN PRN PRN Reason: Hypoglycemia Enoxaparin Sodium (Lovenox) 40 mg SUB-Q QDAY [facility] Hydralazine HCl (Apresoline) 25 mg PO BID [facility] Hydromorphone HCl (Dilaudid) 1 mg IV Q4H PRN PRN Reason: Pain, Moderate (4-6) Last Admin: 01/22/18 08:17 Dose: 1 mg Insulin Human Lispro (Humalog) 0 unit SUB-Q [facility]; Protocol Last Admin: 01/22/18 08:15 Dose: Not Given Isosorbide Mononitrate (Imdur) 30 mg PO QDAY [facility] Losartan Potassium (Cozaar) 25 mg PO QDAY [facility] Metformin HCl (Glucophage) 1,000 mg PO BIDDIAB [facility] Last Admin: 01/22/18 08:16 Dose: 1,000 mg Ondansetron HCl (Zofran) 4 mg IV Q8H PRN PRN Reason: Nausea And Vomiting Sodium Chloride (Sodium Chloride Flush Syringe 10 Ml) 10 ml IV BID [facility] Sodium Chloride (Sodium Chloride Flush Syringe 10 Ml) 10 ml IV PRN PRN PRN Reason: LINE FLUSH Last Admin: 01/22/18 06:36 Dose: 10 ml Torsemide (Demadex) 40 mg PO BID@0600,1800 [facility] Last Admin: 01/22/18 06:36 Dose: 40 mg Review of Systems Constitutional: no weight loss, no weight gain, no fever, no chills, no sweats Ears, nose, mouth and throat: no ear pain, no nose pain, no sinus pressure, no sinus pain Cardiovascular: chest pain, orthopnea (chronic), palpitations, edema (chronic), shortness of breath (chronic), dyspnea on exertion (chronic), high blood pressure, no syncope, no lightheadedness Respiratory: shortness of breath, dyspnea on exertion, no cough, no congestion, no wheezing, no pain on inspiration Gastrointestinal: no abdominal pain, no nausea, no vomiting, no diarrhea, no constipation, no change in bowel habits Genitourinary Male: no dysuria, no hematuria, no flank pain, no discharge, no urinary frequency, no urinary hesitancy Musculoskeletal: no neck stiffness, no neck pain, no shooting arm pain, no arm numbness/tingling, no low back pain, no shooting leg pain Integumentary: no rash, no pruritis, no redness, no sores, no wounds Neurological: no head injury, no paralysis, no weakness, no parathesias, no numbness, no tingling, no seizures, no syncope Psychiatric: no anxiety Endocrine: no cold intolerance, no heat intolerance Hematologic/Lymphatic: no easy bruising, no easy bleeding, no lymphadenopathy Allergic/Immunologic: no urticaria, no wheezing, no persistent infections Physical Examination Vital Signs Temp Pulse Resp BP Pulse Ox 99.3 F 103 H 22 153/104 93 01/21/18 22:14 01/21/18 22:14 01/21/18 22:14 01/21/18 22:14 01/21/18 22:14 General appearance: no acute distress HEENT: Positive: PERRL, Normocephaly, Mucus Membranes Moist Neck: Positive: neck supple, trachea midline Cardiac: Positive: Reg Rate and Rhythm, S1/S2 Lungs: Positive: clear to auscultation Neuro: Positive: Grossly Intact Abdomen: Positive: Soft. Negative: Tender Skin: Negative: Rash Extremities: Present: +2 Edema (BLE, lymphedema) Results 01/22/18 05:05 01/22/18 05:05 Cardiac Enzymes 01/22/18 Range/Units 02:44 CK-MB (CK-2) 1.5 (0.0-4.0) ng/mL Coagulation 01/21/18 Range/Units 23:36 PT 15.9 H (12.2-14.9) Sec. INR 1.20 H (0.87-1.13) APTT 28.6 (24.2-36.6) Sec. CBC 01/21/18 01/22/18 Range/Units 23:36 05:05 WBC 8.7 10.1 (4.5-11.0) K/mm3 RBC 5.74 H 5.42 H (3.65-5.03) M/mm3 Hgb 13.3 12.5 (11.8-15.2) gm/dl Hct 42.2 39.7 (35.5-45.6) % Plt Count 258 270 (140-440) K/mm3 Lymph # 1.7 (1.2-5.4) K/mm3 [place] # 0.8 (0.0-0.8) K/mm3 Eos # 0.1 (0.0-0.4) K/mm3 Baso # 0.1 (0.0-0.1) K/mm3 Comprehensive Metabolic Panel 01/21/18 01/22/18 Range/Units 23:36 05:05 Sodium 142 140 (137-145) mmol/L Potassium 4.4 4.3 (3.6-5.0) mmol/L Chloride 100.7 98.8 (98-107) mmol/L Carbon Dioxide 26 25 (22-30) mmol/L BUN 22 H 21 H (9-20) mg/dL Creatinine 1.4 1.3 (0.8-1.5) mg/dL Glucose 161 H 147 H (75-100) mg/dL Calcium 9.7 9.4 (8.4-10.2) mg/dL - Imaging and Cardiology Echo: report reviewed ( 10/2017 showed EF 15%, trace MR, trace TR, LV severely dilated, mild LVH, pseudonormalization.) Cardiac cath: report reviewed ( C in 04/2016 at [facility] which showed no angiographic evidence of CAD, EF 25%. ) EKG: report reviewed, image reviewed EKG interpretations - Telemetry EKG Rhythm: Sinus Rhythm - EKG Sinus rhythms and dysrhythmias: sinus rhythm Ventricular dysrhythmias: ventricular premature com Assessment and Plan Assessment: Chest pain, atypical Chronic systolic heart failure - no current clinical evidence of acute exacerbation Dilated NICMP AICD in situ Frequent PVCs and NSVT Elevated DDimer Chronic RLE DVT HTN DM Morbid obesity Lymphedema Plan: Convert coreg to lopressor for more adequate suppression of PVCs and NSVT. Cont all other home cardiac medications. No indication for repeat echo or ischemic evaluation at this time. The patient has been seen in conjunction with Dr. Yuan who agrees with the assessment and plan of care.
[2018-01-22] MEDS ORDERED: LOVENOX SUB-Q SCH ×2 (10:00→22:00)
[2018-01-22] MEDS ORDERED: NON-FORMULARY (Torsemide [Demadex] 40 MG) PO SCH (10:00)
[2018-01-22] MEDS ORDERED: LOPRESSOR PO SCH (12:00)
[2018-01-22 12:58] LABS: Creatine Kinase MB 1.9 ng/mL (0.0-4.0)
[2018-01-22] MEDS: COZAAR PO SCH (14:10)
[2018-01-22] MEDS: APRESOLINE PO SCH ×2 (14:10→22:13)
--- NOTE | 2018-01-22 14:10 | Event Note ---
Date: 01/22/18 Pt seen and examined unable to do CT due to bodywt will treat for DVT and possible PE as he is symtomatic will resume his coumadin and bridge with lovenox cont home meds
[2018-01-22] MEDS: SODIUM CHLORIDE FLUSH SYRINGE 10 ML IV SCH ×2 (14:11→22:10)
[2018-01-22] MEDS: IMDUR PO SCH (14:11)
[2018-01-22] MEDS: LOPRESSOR PO SCH ×2 (14:12→17:08)
[2018-01-22] MEDS: COUMADIN PO SCH (16:21)
[2018-01-22] MEDS ORDERED: COREG PO SCH (22:00)
[2018-01-22] MEDS ORDERED: COUMADIN PO SCH (22:00)
[2018-01-23] MEDS: LOPRESSOR PO SCH ×4 (00:45→22:43)
[2018-01-23] MEDS: DILAUDID IV PRN ×6 (02:12→22:43)
[2018-01-23] MEDS: DEMADEX PO SCH ×2 (06:34→17:14)
[2018-01-23 07:00] LABS: INR 1.26 (0.87-1.13)
[2018-01-23] MEDS: HumaLOG SUB-Q SCH ×4 (07:30→22:42)
[2018-01-23] MEDS: IMDUR PO SCH (10:44)
[2018-01-23] MEDS: GLUCOPHAGE PO SCH ×2 (10:45→16:07)
[2018-01-23] MEDS: APRESOLINE PO SCH ×2 (10:45→22:44)
[2018-01-23] MEDS: COZAAR PO SCH (10:46)
[2018-01-23] MEDS: LOVENOX SUB-Q SCH ×4 (10:50→22:42)
[2018-01-23] MEDS: SODIUM CHLORIDE FLUSH SYRINGE 10 ML IV SCH ×2 (10:50→22:42)
--- NOTE | 2018-01-23 12:26 | Progress Note ---
Assessment and Plan Assessment: Chest pain, atypical - currently resolved Chronic systolic heart failure - no current clinical evidence of acute exacerbation Dilated NICMP AICD in situ Frequent PVCs and NSVT - improving Chronic RLE DVT HTN DM Morbid obesity Lymphedema Plan: Currently stable cardiac status. Pt may discharge home from cardiology standpoint. Recommend pt follow up with his primary historical site guide within 1-2 weeks of hospital discharge. Pt verbalizes understanding. The patient has been seen in conjunction with Dr. Yuan who agrees with the assessment and plan of care. Subjective Date of service: 01/23/18 Principal diagnosis: palpitations Interval history: pt resting comfortably in bed, starts palpitations have improved. c/o a bout of nausea this AM. tele reviewed - pt with less frequent PVCs and NSVT overnight. Objective Last Vital Signs Temp 98.6 F 01/23/18 07:34 Pulse 97 H 01/23/18 10:46 Resp 20 01/23/18 10:46 BP 138/84 01/23/18 10:46 Pulse Ox 93 01/23/18 07:34 - Physical Examination General: No Apparent Distress HEENT: Positive: PERRL, Normocephaly, Mucus Membranes Moist Neck: Positive: neck supple, trachea midline Cardiac: Positive: Reg Rate and Rhythm, S1/S2 Lungs: Positive: clear to auscultation Neuro: Positive: Grossly Intact Abdomen: Positive: Soft. Negative: Tender Skin: Negative: Rash Extremities: Present: +2 Edema (BLE, lymphedema) - Labs and Meds Cardiac Enzymes 01/22/18 Range/Units 12:03 CK-MB (CK-2) 1.9 (0.0-4.0) ng/mL Coagulation 01/23/18 Range/Units 06:15 PT 16.5 H (12.2-14.9) Sec. INR 1.26 H (0.87-1.13) - Imaging and Cardiology EKG: report reviewed, image reviewed Echo: report reviewed ( 10/2017 showed EF 15%, trace MR, trace TR, LV severely dilated, mild LVH, pseudonormalization.) Cardiac cath: report reviewed ( C in 04/2016 at [facility] which showed no angiographic evidence of CAD, EF 25%. ) - EKG Sinus rhythms and dysrhythmias: sinus rhythm Ventricular dysrhythmias: ventricular premature com
--- NOTE | 2018-01-23 14:56 | Progress Note ---
Assessment and Plan Chest pain, atypical - currently resolved - no intervention per cardiology Chronic systolic heart failure, compensated - no current clinical evidence of acute exacerbation - Has AICD in place Frequent PVCs and NSVT - improving Chronic RLE DVT - States he was started on Coumadin just a month ago and recently was taken - Lower extremity Doppler positive for right lower extremity chronic DVT - Could not rule out acute PE as he could not fit on the CAT scan table - We'll continue Coumadin bridging with Lovenox - monitor INR HTN, stable continue current meds DM, consistent carb diet with sliding scale of insulin Morbid obesity, counseled and given dietary recommendations Lymphedema, chronic, continue supportive care Brief History: 32-year-old man with a history of hypertension, CHF, diabetes, coronary artery disease, history of DVT comes emergency room complaining of pain in his left neck , shortness of breath. He had a cardiac cath this year which was normal. Patient was given a full dose Lovenox in the emergency room because his d-dimer was elevated but he was not able to fit on the CAT scan table to r/o acute PE Hospitalist Physical exam: GENERAL: well-developed morbidly obese -Citizen Of [place] male lying on bed appeared to be in no discomfort. HEENT: Normocephalic. Atraumatic. No conjunctival congestion or icterus. Patient has moist mucous membranes. NECK: Supple. Trachea midline. CHEST/LUNGS: Clear to auscultated bilaterally, breathing nonlabored. No wheezes crackles or rhonchi. HEART/CARDIOVASCULAR: Regular in rate and rhythm. S1 and S2 positive. ABDOMEN: Abdomen is soft, nontender. Patient has normal bowel sounds. SKIN: There is no rash. Warm and dry. NEURO: No focal motor deficit. Follows command. MUSCULOSKELETAL: No joint effusion or tenderness. EXTRIMITY: RLE edema/swelling, no cyanosis or clubbing. PSYCH: Cooperative. Subjective Date of service: 01/23/18 Principal diagnosis: palpitations Interval history: Patient seen and examined Denies any chest pain today but complained of nausea this morning States he had an episode of difficulty breathing last night but improved after giving present treatment Objective - Constitutional Vitals: Vital Signs - 12hr 01/23/18 01/23/18 01/23/18 05:35 05:36 06:34 Temperature 100.3 F H Pulse Rate 51 L 46 L Respiratory 20 19 Rate Blood Pressure 137/89 O2 Sat by Pulse 93 96 Oximetry 01/23/18 01/23/18 01/23/18 06:35 07:04 07:34 Temperature 98.6 F Pulse Rate 100 H 46 L Respiratory 19 22 Rate Blood Pressure 137/89 138/84 O2 Sat by Pulse 93 Oximetry 01/23/18 01/23/18 01/23/18 10:44 10:45 10:46 Temperature Pulse Rate 97 H 97 H 97 H Respiratory 20 Rate Blood Pressure 138/84 138/84 138/84 O2 Sat by Pulse Oximetry 01/23/18 01/23/18 12:48 14:37 Temperature 98.5 F Pulse Rate 54 L 70 Respiratory 20 Rate Blood Pressure 140/89 140/89 O2 Sat by Pulse 89 Oximetry - Labs CBC & Chem 7: 01/22/18 05:05 01/22/18 05:05 Labs: Abnormal lab results 01/22/18 01/22/18 01/23/18 Range/Units 15:59 22:24 06:15 PT 16.5 H (12.2-14.9) Sec. INR 1.26 H (0.87-1.13) POC Glucose 142 H 136 H (70-105) 01/23/18 Range/Units 12:34 PT (12.2-14.9) Sec. INR (0.87-1.13) POC Glucose 126 H (70-105)
[2018-01-23] MEDS: COUMADIN PO SCH (16:07)
[2018-01-24] MEDS: DILAUDID IV PRN ×3 (03:20→11:58)
[2018-01-24] MEDS: DEMADEX PO SCH (06:11)
[2018-01-24] MEDS: HumaLOG SUB-Q SCH ×2 (07:57→12:46)
[2018-01-24] MEDS: LOPRESSOR PO SCH (10:20)
[2018-01-24] MEDS: IMDUR PO SCH (10:20)
[2018-01-24] MEDS: COZAAR PO SCH (10:20)
[2018-01-24] MEDS: APRESOLINE PO SCH (10:20)
[2018-01-24] MEDS: LOVENOX SUB-Q SCH ×2 (10:21)
[2018-01-24] MEDS: SODIUM CHLORIDE FLUSH SYRINGE 10 ML IV SCH (10:21)
[2018-01-24] MEDS: GLUCOPHAGE PO SCH (10:28)
--- NOTE | 2018-01-24 11:36 | Progress Note ---
Assessment and Plan Chest pain, atypical - currently resolved Chronic systolic heart failure - no current clinical evidence of acute exacerbation Dilated NICMP AICD in situ Frequent PVCs and NSVT - improving Chronic RLE DVT HTN DM Morbid obesity Lymphedema Plan: Currently stable cardiac status. Pt may discharge home from cardiology standpoint. Patient was on xarelto and developed a DVT afterwards so and given patient's morbid obesity, agree with continuation of Lovenox and Coumadin patient will follow with [facility] in [place] for INR check next week Recommend pt follow up with his primary yarn cleaner within 1-2 weeks of hospital discharge. Pt verbalizes understanding Subjective Date of service: 01/24/18 Principal diagnosis: palpitations Interval history: sob is better and no chest pain Objective Vital Signs Temp Pulse Pulse Resp Resp BP Pulse Ox 01/24/18 08:38 95 01/24/18 07:55 90 01/24/18 07:47 98.1 F 48 L 16 142/96 96 01/24/18 04:17 98.9 F 88 20 117/69 95 01/24/18 03:50 18 01/24/18 03:20 19 01/24/18 00:23 99.4 F 85 20 139/82 94 01/23/18 23:13 18 01/23/18 22:44 102 H 115/72 01/23/18 22:43 102 H 19 115/72 01/23/18 22:00 100 H 18 01/23/18 21:39 94 01/23/18 20:55 99.0 F 42 L 22 115/72 94 01/23/18 20:12 91 H 01/23/18 20:04 18 01/23/18 19:12 19 01/23/18 15:14 98.5 F 48 L 20 140/86 84 01/23/18 14:37 70 140/89 01/23/18 12:48 98.5 F 54 L 20 140/89 89 - Physical Examination General: No Apparent Distress HEENT: Positive: PERRL, Normocephaly, Mucus Membranes Moist Neck: Positive: neck supple, trachea midline Cardiac: Positive: Reg Rate and Rhythm Lungs: Positive: clear to auscultation Neuro: Positive: Grossly Intact Abdomen: Positive: Soft. Negative: Tender Skin: Negative: Rash Extremities: Present: +2 Edema (BLE, lymphedema) - Imaging and Cardiology EKG: report reviewed, image reviewed Echo: report reviewed ( 10/2017 showed EF 15%, trace MR, trace TR, LV severely dilated, mild LVH, pseudonormalization.) Cardiac cath: report reviewed ( C in 04/2016 at [facility] which showed no angiographic evidence of CAD, EF 25%. ) - EKG Sinus rhythms and dysrhythmias: sinus rhythm Ventricular dysrhythmias: ventricular premature com
--- NOTE | 2018-01-24 11:40 | Discharge Summary ---
Providers - Providers Date of Admission: 01/22/18 02:30 Date of discharge: 01/24/18 Attending physician: JW SYLVSETER 01/22/18 02:30 Consult to Physician [CONS] Routine Comment: Consulting Provider: LISETH BEE Physician Instructions: Reason For Exam: chest pain Primary care physician: CRISTIANA HEMPHILL Hospitalization Condition: Fair Hospital course: Chest pain, atypical - currently resolved, likely from GERD - no intervention per cardiology Chronic systolic heart failure, compensated - no current clinical evidence of acute exacerbation - Has AICD in place Frequent PVCs and NSVT - improving Chronic RLE DVT - States he was started on Coumadin just a month ago and recently was taken off 4 days ago before admission - Lower extremity Doppler positive for right lower extremity chronic DVT - Could not rule out acute PE as he could not fit on the CAT scan table - We'll continue Coumadin bridging with Lovenox - he will monitor INR outpt HTN, stable continue current meds DM, consistent carb diet with sliding scale of insulin Morbid obesity, counseled and given dietary recommendations Lymphedema, chronic, continue supportive care Brief History: 32-year-old man with a history of hypertension, CHF, diabetes, coronary artery disease, history of DVT comes emergency room complaining of pain in his left neck , shortness of breath. He had a cardiac cath this year which was normal. Patient was given a full dose Lovenox in the emergency room because his d-dimer was elevated but he was not able to fit on the CAT scan table to r/o acute PE Hospitalist Physical exam: GENERAL: well-developed morbidly obese -[place] male lying on bed appeared to be in no discomfort. HEENT: Normocephalic. Atraumatic. No conjunctival congestion or icterus. Patient has moist mucous membranes. NECK: Supple. Trachea midline. CHEST/LUNGS: Clear to auscultated bilaterally, breathing nonlabored. No wheezes crackles or rhonchi. HEART/CARDIOVASCULAR: Regular in rate and rhythm. S1 and S2 positive. ABDOMEN: Abdomen is soft, nontender. Patient has normal bowel sounds. SKIN: There is no rash. Warm and dry. NEURO: No focal motor deficit. Follows command. MUSCULOSKELETAL: No joint effusion or tenderness. EXTRIMITY: RLE edema/swelling, no cyanosis or clubbing. PSYCH: Cooperative. Disposition: [id number]/[place]-06 HOME UNDER HOME HLTH Time spent for discharge: 34 minutes Core Measure Documentation - Palliative Care Palliative Care/ Comfort Measures: Not Applicable - Core Measures Any of the following diagnoses?: history only Exam - Constitutional Vitals: Temp Pulse Resp BP Pulse Ox 98.1 F 90 16 142/96 95 01/24/18 07:47 01/24/18 07:55 01/24/18 07:47 01/24/18 07:47 01/24/18 08:38 Plan Activity: advance as tolerated Weight Bearing Status: Weight Bear as Tolerated Diet: low fat, low salt, diabetic Follow up with: CRISTIANA HEMPHILL MD [Primary Care Provider] - 3-5 Days Forms: Warfarin Discharge Instruction Prescriptions: Enoxaparin [Lovenox] 150 mg SUB-Q Q12HR #14 syringe Enoxaparin [Lovenox] 30 mg SUB-Q Q12HR #14 syringe Metoprolol [Lopressor TAB] 50 mg PO BID #60 tablet Warfarin [Coumadin] 10 mg PO DAILY@1700 #30 tablet
[2018-01-24 14:03] VITALS: BP 134/95
--- NOTE | 2018-01-26 15:41 | Vascular Lab Report ---
LOWER EXTREMITY VENOUS DUPLEX: REASON FOR EXAM: DVT. COMMENTS ON THE RIGHT: Partially occluding, chronic thrombus is seen in the popliteal vein. This was also noted in the study dated October 18, 2017. There has been no change. The remaining veins visualized are freely compressible without evidence of internal echogenicity. Spontaneous and phasic flow is present proximally. COMMENTS ON THE LEFT: All veins visualized are freely compressible without evidence of internal echogenicity. Flow is spontaneous and phasic throughout. 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 No evidence of acute deep venous thrombosis in either lower extremity.
== END 2018-01-24 15:37 | disposition home or self-care (01) | DRG 392 ==
LOC: ED 21:55 → 4A 01-22 02:30
PROVIDERS: ADMIT Internal Medicine; ATTEND Internal Medicine
DX: K21.9 Gastro-esophageal reflux disease without esophagitis (principal); Z68.44 Body mass index [BMI] 60.0-69.9, adult; I50.22 Chronic systolic (congestive) heart failure; I82.591 Chronic embolism and thrombosis of other specified deep vein of right lower extremity; I42.0 Dilated cardiomyopathy; I47.1 Supraventricular tachycardia; I25.110 Atherosclerotic heart disease of native coronary artery with unstable angina pectoris; E11.9 Type 2 diabetes mellitus without complications; E66.01 Morbid (severe) obesity due to excess calories; I11.0 Hypertensive heart disease with heart failure; I89.0 Lymphedema, not elsewhere classified; I49.3 Ventricular premature depolarization; Z79.01 Long term (current) use of anticoagulants; Z79.899 Other long term (current) drug therapy; Z95.810 Presence of automatic (implantable) cardiac defibrillator; Z82.49 Family history of ischemic heart disease and other diseases of the circulatory system; I25.2 Old myocardial infarction
CPT/HCPCS: 36415; 71045; 80048; 82550; 82553; 82962; 83735; 83880; 84484; 85007; 85025; 85379; 85610; 85730; 93005; 93010; 93970; J1170; J1650; J3475

== ENCOUNTER 2018-03-01 11:06 | Inpatient (IN) | payer OTHER ==
[2018-03-01] MEDS ORDERED: ZOFRAN IV ONE (11:59)
[2018-03-01] MEDS ORDERED: MORPHINE IV ONE (11:59)
[2018-03-01 12:01] LABS: INR 0.92 (0.87-1.13)
[2018-03-01 12:02] LABS: Partial Thromboplastin Time 24.1 Sec. (24.2-36.6)
--- NOTE | 2018-03-01 12:02 | Emergency Department Report ---
ED Chest Pain HPI - General Chief Complaint: Chest Pain Stated Complaint: CP Time Seen by Provider: 03/01/18 11:31 Source: patient, EMS Mode of arrival: Stretcher Limitations: No Limitations - History of Present Illness Initial Comments: This is a 32-year-old male presents to the emergency department principally with shortness of breath. He states he did have some chest pain as well but it was not apparently related to his respiratory cycle. He has a history of a cardiomyopathy; he states he's had a previous myocardial infarction. He has a history of a right DVT. He is previously fails Xarelto and now is on Coumadin. He states that his last INR was 1 month ago. He does not know his Coumadin dose. The patient is morbidly obese. Remarkably the patient states he is not ordinarily short of breath. He states he was walking 2 miles and in a cul-de[place]sac when he developed acute shortness of breath. States he did have some coughing. He states his right leg has been painful recently. Review of the patient's last hospitalization in January indicates that he was admitted for CHF. He had run out of his diuretic. He has chronic right DVT. I do note several subtherapeutic INRs in the past. Onset: during exertion Pain Location: left chest (left upper chest) Pain Radiation: none Severity scale (0 -10): 8 Quality: sharp Consistency: intermittent Improves With: nothing Worsens With: nothing Context: other (DVT) re: dyspnea Other Symptoms: cough Treatments Prior to Arrival: none Aspirin use within the Past 7 Days: (1) Yes - Related Data Home Medications Medication Instructions Recorded Confirmed Last Taken Metformin HCl 1,000 mg PO BID 10/18/17 02/08/18 1 Day Ago ~02/07/18 Losartan [Cozaar] 25 mg PO QDAY 11/17/17 02/09/18 Unknown Torsemide [Demadex] 40 mg PO BID 11/17/17 02/08/18 1 Day Ago ~02/07/18 Aspirin [Aspir-Low] 81 mg PO DAILY 02/08/18 02/08/18 1 Day Ago ~02/07/18 Oxycodone HCl/Acetaminophen 1 each PO Q6HR PRN 02/08/18 02/08/18 1 Day Ago [Percocet 10/325 mg] ~02/07/18 Spironolactone [Aldactone] 25 mg PO QDAY 02/08/18 02/08/18 1 Day Ago ~02/07/18 Previous Rx's Medication Instructions Recorded Last Taken Type AtorvaSTATin [Lipitor] 40 mg PO QHS #30 tab 02/09/18 Unknown Rx Metoprolol [Lopressor TAB] 50 mg PO BID #60 tablet 02/09/18 Unknown Rx Allergies Allergy/AdvReac Type Severity Reaction Status Date / Time No Known Allergies Allergy Unverified 10/18/17 00:25 Heart Score - HEART Score History: Slightly suspicious EKG: Non-specific Age: < 45 Risk factors: > 3 risk factors or hx of atherosclerotic disease Troponin: < normal limit HEART Score: 3 ED Review of Systems ROS: Stated complaint: CP Other details as noted in HPI Constitutional: denies: chills, fever Eyes: denies: eye pain, eye discharge, vision change ENT: denies: ear pain, throat pain Respiratory: shortness of breath (denies chronic dyspnea). denies: cough, orthopnea, wheezing Cardiovascular: chest pain. denies: palpitations Endocrine: no symptoms reported Gastrointestinal: denies: abdominal pain, nausea, diarrhea Genitourinary: denies: urgency, dysuria Musculoskeletal: denies: back pain, joint swelling, arthralgia Skin: denies: rash, lesions Neurological: denies: headache, weakness, paresthesias Psychiatric: denies: anxiety, depression Hematological/Lymphatic: denies: easy bleeding, easy bruising ED Past Medical Hx - Past Medical History Hx Hypertension: Yes Hx Heart Attack/AMI: Yes (2016) Hx Congestive Heart Failure: Yes Hx Diabetes: Yes Hx Deep Vein Thrombosis: Yes (Right leg, pt is taking Warfarin) Hx Asthma: No Hx COPD: No Additional medical history: R sided chest tube, -infection in lung. defibrillator 10/2017. EJ 15% - Surgical History Hx Pacemaker: Yes Hx Internal Defibrillator: Yes Additional Surgical History: lymphadema - Social History Smoking Status: Never Smoker Substance Use Type: None - Medications Home Medications: Home Medications Medication Instructions Recorded Confirmed Last Taken Type Metformin HCl 1,000 mg PO BID 10/18/17 02/08/18 1 Day Ago History ~02/07/18 Losartan [Cozaar] 25 mg PO QDAY 11/17/17 02/09/18 Unknown History Torsemide [Demadex] 40 mg PO BID 11/17/17 02/08/18 1 Day Ago History ~02/07/18 Aspirin [Aspir-Low] 81 mg PO DAILY 02/08/18 02/08/18 1 Day Ago History ~02/07/18 Oxycodone HCl/Acetaminophen 1 each PO Q6HR PRN 02/08/18 02/08/18 1 Day Ago History [Percocet 10/325 mg] ~02/07/18 Spironolactone [Aldactone] 25 mg PO QDAY 02/08/18 02/08/18 1 Day Ago History ~02/07/18 AtorvaSTATin [Lipitor] 40 mg PO QHS #30 tab 02/09/18 Unknown Rx Metoprolol [Lopressor TAB] 50 mg PO BID #60 tablet 02/09/18 Unknown Rx ED Physical Exam - General Limitations: Physical Limitation General appearance: alert, in no apparent distress, obese (morbid) - Head Head exam: Present: atraumatic, normocephalic - Eye Eye exam: Present: normal appearance. Absent: scleral icterus - ENT ENT exam: Present: mucous membranes moist - Neck Neck exam: Present: normal inspection. Absent: tenderness, meningismus - Respiratory Respiratory exam: Present: normal lung sounds bilaterally. Absent: respiratory distress - Cardiovascular Cardiovascular Exam: Present: regular rate, normal rhythm. Absent: systolic murmur, diastolic murmur, rubs, gallop - GI/Abdominal GI/Abdominal exam: Present: soft, normal bowel sounds. Absent: distended, tenderness, guarding, rebound, rigid - Rectal Rectal exam: Present: deferred - Extremities Exam Extremities exam: Present: other (right leg looks like it has slightly more girth than the left side. There is no pitting edema on either side. There is no calf tenderness). Absent: tenderness, calf tenderness - Back Exam Back exam: Present: normal inspection - Neurological Exam Neurological exam: Present: alert, oriented X3, CN II-XII intact. Absent: motor sensory deficit - Psychiatric Psychiatric exam: Present: normal affect, normal mood - Skin Skin exam: Present: warm, dry, intact, normal color. Absent: rash ED Course Vital Signs 03/01/18 03/01/18 03/01/18 11:08 11:15 11:18 Temperature 97.5 F L Pulse Rate 96 H 95 H 95 H Respiratory 38 H 23 22 Rate Blood Pressure 115/89 115/89 O2 Sat by Pulse 99 99 100 Oximetry 03/01/18 03/01/18 03/01/18 11:31 11:45 11:54 Temperature Pulse Rate 93 H 97 H Respiratory 18 31 H 22 Rate Blood Pressure 115/89 115/89 O2 Sat by Pulse 99 100 100 Oximetry 03/01/18 03/01/18 03/01/18 12:01 12:09 12:15 Temperature Pulse Rate 86 94 H 88 Respiratory 16 13 Rate Blood Pressure 120/58 120/58 O2 Sat by Pulse 96 99 Oximetry - Reevaluation(s) Reevaluation #1: Patient was noted to have some runs of V. tach both in the field and in the emergency department. 03/01/18 12:06 Reevaluation #2: Patient now does admit he "missed a dose of Coumadin yesterday". It does appear that he is medically noncompliant. He will be heparinized and admitted. 03/01/18 12:57 SABRINA score - Sabrina Score Age > 65: (0) No Aspirin use within the Past 7 Days: (1) Yes 3 or more CAD Risk Factors: (1) Yes 2 or more Angina events in past 24 hrs: (1) Yes Known CAD with more than 50% Stenosis: (0) No Elevated Cardiac Markers: (0) No ST Deviation Greater than 0.5mm: (0) No SABRINA Score: 3 ED Medical Decision Making - Lab Data Result diagrams: 03/01/18 11:40 Laboratory Results - last 24 hr 03/01/18 03/01/18 11:40 11:40 WBC 6.7 RBC 6.10 H Hgb 13.7 Hct 44.2 MCV 73 L MCH 23 L MCHC 31 L RDW 16.1 H Plt Count 283 Lymph % (Auto) 30.8 [place] % (Auto) 9.3 H Eos % (Auto) 1.2 Baso % (Auto) 0.7 Lymph # 2.1 [place] # 0.6 Eos # 1.2 H Baso # 0.0 Seg Neutrophils % 58.0 Seg Neutrophils # 3.9 PT 12.8 INR 0.92 APTT 24.1 L D-Dimer 3554.29 H - EKG Data -: EKG Interpreted by Id EKG shows normal: sinus rhythm, axis, intervals, QRS complexes - EKG Data Interpretation: nonspecific ST-T wave luther, other (inferior Q waves consistent with old zone. Prolonged NC interval. PVCs. Intraventricular conduction delay. LVH is likely. Poor R-wave progression consistent with habitus.) - Radiology Data Radiology results: report reviewed (left sided defibrillator catheter noted no decompensation) Critical care attestation.: If time is entered above; I have spent that time in minutes in the direct care of this critically ill patient, excluding procedure time. ED Disposition Clinical Impression: Elevated d-dimer, Ventricular tachycardia Chest pain Qualifiers: Chest pain type: unspecified Qualified Code(s): R07.9 - Chest pain, unspecified Cardiomyopathy Qualifiers: Cardiomyopathy type: unspecified Qualified Code(s): I42.9 - Cardiomyopathy, unspecified Disposition: DC-09 OP ADMIT IP TO THIS HOSP Is pt being admited?: Yes Does the pt Need Aspirin: Yes Condition: Stable Instructions: Chest Pain (ED) Referrals: PRIMARY CARE, [Primary Care Provider] - 3-5 Days Time of Disposition: 13:04
[2018-03-01 12:10] LABS: Hematocrit 44.2 % (35.5-45.6); Hemoglobin 13.7 gm/dl (11.8-15.2); Mean Corpuscular HGB Conc 31 % (32-34); Mean Corpuscular Hemoglobin 23 pg (28-32); Mean Corpuscular Volume 73 fl (84-94); Platelet Count 283 K/mm3 (140-440); Red Cell Distribution Width 16.1 % (13.2-15.2)
[2018-03-01 12:11] LABS: Eosinophils % (Auto) 1.2 % (0.0-4.3); Lymphocytes % (Auto) 30.8 % (13.4-35.0); Monocytes % (Auto) 9.3 % (0.0-7.3)
[2018-03-01 12:12] LABS: Basophils % (Auto) 0.7 % (0.0-1.8)
[2018-03-01 12:13] LABS: Eosinophils # (Auto) 1.2 K/mm3 (0.0-0.4); Lymphocytes # (Auto) 2.1 K/mm3 (1.2-5.4); Monocytes # (Auto) 0.6 K/mm3 (0.0-0.8)
[2018-03-01] MEDS ORDERED: HEPARIN 10,000 UNITS/10 ML IV ONE (12:43)
--- NOTE | 2018-03-01 12:55 | XRay Report ---
FINAL REPORT EXAM: XR CHEST 1V AP HISTORY: cp COMPARISON: Chest radiograph performed on 02/07/2018 TECHNIQUE: Single frontal view of the chest FINDINGS: Left-sided defibrillator is unchanged in position. Stable cardiomegaly. Low lung volumes. No focal consolidation. No pleural effusion or pneumothorax. No acute bony or soft tissue abnormality. IMPRESSION: Stable cardiomegaly. Low lung volumes. No focal consolidation.
--- NOTE | 2018-03-01 13:15 | History and Physical Report ---
History of Present Illness Chief complaint: My chest hurts History of present illness: 32 YO Male with MO, HTN, Systolic CHF(EF 15%), Medication Noncompliance, DM, CAD , DVT presents to ED for evaluation. Pt states that he has experienced acute onset of pain in his left chest that began while walking. Pt states that the pain is 6/10, substernal, localized to the left chest, nonradiating, associated with shortness of breath. Pt also acknowledges medication noncompliance, as well as dietary noncompliance. Pt denies fever, chills, palpitations, NVD, Syncope, Hemoptysis, BRBPR, Skin Rash, Productive cough, or recent ill contacts. Pt see and evaluated in ED and found to have symptoms consistent with CHF, Subtherapeutic INR, and Respiratory Failure. Pt admitted to telemetry and initiated on therapeutic anticoagulation. Past History Past Medical History: CAD, diabetes, DVT, heart failure, hypertension Past Surgical History: Other (AICD Placement.) Social history: single. denies: smoking, alcohol abuse, prescription drug abuse Family history: diabetes, hypertension Medications and Allergies Allergies Allergy/AdvReac Type Severity Reaction Status Date / Time No Known Allergies Allergy Unverified 10/18/17 00:25 Home Medications Medication Instructions Recorded Confirmed Last Taken Type Metformin HCl 1,000 mg PO BID 10/18/17 02/08/18 1 Day Ago History ~02/07/18 Losartan [Cozaar] 25 mg PO QDAY 11/17/17 02/09/18 Unknown History Torsemide [Demadex] 40 mg PO BID 11/17/17 02/08/18 1 Day Ago History ~02/07/18 Aspirin [Aspir-Low] 81 mg PO DAILY 02/08/18 02/08/18 1 Day Ago History ~02/07/18 Oxycodone HCl/Acetaminophen 1 each PO Q6HR PRN 02/08/18 02/08/18 1 Day Ago History [Percocet 10/325 mg] ~02/07/18 Spironolactone [Aldactone] 25 mg PO QDAY 02/08/18 02/08/18 1 Day Ago History ~02/07/18 AtorvaSTATin [Lipitor] 40 mg PO QHS #30 tab 02/09/18 Unknown Rx Metoprolol [Lopressor TAB] 50 mg PO BID #60 tablet 02/09/18 Unknown Rx Active Meds: Active Medications Heparin Sodium/Sodium Chloride (Heparin/ 0.45% Nacl-25,000 Unit/500 Ml) 25,000 unit in 500 mls @ 30 mls/hr IV TITR CODY; Protocol Review of Systems Constitutional: no weight loss, no weight gain, no fever, no chills Ears, nose, mouth and throat: no ear pain, no ear discharge, no tinnitis, no decreased hearing, no nose pain, no nasal congestion Cardiovascular: chest pain, shortness of breath, no orthopnea, no palpitations, no rapid/irregular heart beat Respiratory: no cough, no cough with sputum, no hemoptysis Gastrointestinal: no nausea, no vomiting, no diarrhea, no constipation Genitourinary Male: no flank pain, no discharge, no urinary frequency, no urinary hesitancy, no nocturia Rectal: no pain, no incontinence, no bleeding Musculoskeletal: no neck stiffness, no neck pain, no shooting arm pain, no arm numbness/tingling, no low back pain, no shooting leg pain Integumentary: no rash, no pruritis, no redness, no sores, no wounds Neurological: no transient paralysis, no paralysis, no weakness, no parathesias , no numbness, no tingling, no seizures, no syncope Psychiatric: no anxiety, no memory loss, no change in sleep habits, no sleep disturbances, no insomnia, no hypersomnia Endocrine: no cold intolerance, no heat intolerance, no polyphagia, no excessive thirst, no polydipsia, no polyuria Hematologic/Lymphatic: no easy bruising, no easy bleeding, no lymphadenopathy, no lymphedema Allergic/Immunologic: no urticaria, no allergic rhinitis, no wheezing, no persistent infections, no anaphylaxis, no angioedema Exam - Constitutional Vitals: Temp Pulse Resp BP Pulse Ox 97.5 F L 88 13 120/58 99 03/01/18 11:18 03/01/18 12:15 03/01/18 12:15 03/01/18 12:15 03/01/18 12:15 General appearance: Present: mild distress, obese - EENT Eyes: Present: PERRL ENT: hearing intact, clear oral mucosa - Neck Neck: Present: supple, normal ROM - Respiratory Respiratory effort: normal Respiratory: bilateral: diminished, rhonchi - Cardiovascular Heart Sounds: Present: S1 & S2. Absent: rub, click - Extremities Extremities: pulses symmetrical, No edema Extremity abnormal: edema Peripheral Pulses: within normal limits - Abdominal General gastrointestinal: Present: soft, non-tender, non-distended, normal bowel sounds Male genitourinary: Present: normal - Integumentary Integumentary: Present: clear, warm, dry - Musculoskeletal Musculoskeletal: gait normal, strength equal bilaterally - Psychiatric Psychiatric: appropriate mood/affect, intact judgment & insight - Neurologic Neurologic: CNII-XII intact, moves all extremities Results - Labs CBC & Chem 7: 03/01/18 11:40 Labs: Abnormal lab results 03/01/18 03/01/18 Range/Units 11:40 11:40 RBC 6.10 H (3.65-5.03) M/mm3 MCV 73 L (84-94) fl MCH 23 L (28-32) pg MCHC 31 L (32-34) % RDW 16.1 H (13.2-15.2) % [place] % (Auto) 9.3 H (0.0-7.3) % Eos # 1.2 H (0.0-0.4) K/mm3 APTT 24.1 L (24.2-36.6) Sec. D-Dimer 3554.29 H (0-234) ng/mlDDU Assessment and Plan - Patient Problems (1) CHF (congestive heart failure) Current Visit: Yes Status: Acute Qualifiers: Heart failure type: systolic Heart failure chronicity: acute on chronic Qualified Code(s): I50.23 - Acute on chronic systolic (congestive) heart failure Plan to address problem: Admit to telemetry, strict I/O, daily weight, monitor uop q shift, afterload reduction, diuretic therapy, supplemental oxygen, D dimer, BNP (2) Respiratory failure Current Visit: Yes Status: Acute Qualifiers: Chronicity: acute Respiratory failure complication: hypoxia Qualified Code(s): J96.01 - Acute respiratory failure with hypoxia Plan to address problem: Supplemental oxygen, nebulizer therapy, chest x ray, pulse oximetry, (3) Diabetes mellitus Current Visit: No Status: Chronic Qualifiers: Diabetes mellitus type: type 2 Plan to address problem: ADA diet, insulin, accu check (4) Hypertension Current Visit: No Status: Chronic Qualifiers: Hypertension type: essential hypertension Qualified Code(s): I10 - Essential (primary) hypertension Plan to address problem: Monitor bp q shift, continue current therapy (5) Hypercoagulable state Current Visit: Yes Status: Acute Plan to address problem: Subtherapeutic INR secondary to medication noncompliance. Therapeutic anticoagulation, restart coumadin, pharmacy to dose. (6) Obesity hypoventilation syndrome Current Visit: Yes Status: Acute Plan to address problem: supplemental oxygen, nebulizer therapy, NIPPV as clinically indicated, pulse oximetry (7) DVT prophylaxis Current Visit: No Status: Acute Plan to address problem: SCD to BLE while in bed,
[2018-03-01] MEDS: HEPARIN/ 0.45% NACL-25,000 UNIT/500 ML 25,000 UNIT/500 ML BAG IV SCH (13:18)
[2018-03-01] MEDS ORDERED: PROVENTIL IH PRN (13:18)
[2018-03-01] MEDS ORDERED: TYLENOL PO PRN (13:18)
[2018-03-01] MEDS ORDERED: PERCOCET 5/325 PO PRN (13:18)
[2018-03-01] MEDS ORDERED: ZOFRAN IV PRN (13:18)
[2018-03-01] MEDS ORDERED: SODIUM CHLORIDE FLUSH SYRINGE 10 ML IV PRN (13:18)
[2018-03-01] MEDS ORDERED: D50W (25GM) Syringe IV PRN (13:22)
[2018-03-01 14:35] LABS: Bacteria,Urine 1+ /HPF (Negative); Bilirubin,Urine NEG (Negative); Blood,Urine MOD (Negative); Color,Urine Yellow (Yellow); Mucus,Urine FEW /HPF
[2018-03-01] MEDS: ALDACTONE PO SCH (14:43)
[2018-03-01] MEDS: COZAAR PO SCH (14:43)
[2018-03-01 14:44] LABS: Amphetamine Screen,Urine PRESUMPTIVE NEGATIVE; Benzodiazepines Screen,Urine PRESUMPTIVE NEGATIVE; Cannabinoid Screen,Urine PRESUMPTIVE NEGATIVE; Cocaine Screen,Urine PRESUMPTIVE NEGATIVE; Methadone Screen,Urine PRESUMPTIVE NEGATIVE; Opiate Screen,Urine PRESUMPTIVE NEGATIVE
[2018-03-01] MEDS: HALFPRIN EC PO SCH (14:44)
[2018-03-01 17:18] LABS: Creatine Kinase MB 2.3 ng/mL (0.0-4.0)
[2018-03-01 17:21] LABS: Alanine Aminotransferase 23 units/L (7-56); Albumin 3.6 g/dL (3.9-5); BUN/Creatinine Ratio 24; Blood Urea Nitrogen 26 mg/dL (9-20); Calcium 9.5 mg/dL (8.4-10.2); Hemolysis Index 21; Lipase 36 units/L (13-60)
[2018-03-01] MEDS: HumaLOG SUB-Q SCH ×2 (17:39→21:57)
[2018-03-01 17:48] LABS: Chol/HDL Ratio 2.16 %; HDL Cholesterol 68 mg/dL (40-59); LDL Cholesterol,Direct 71 mg/dL (50-130)
[2018-03-01] MEDS: LOPRESSOR PO SCH (21:35)
[2018-03-01] MEDS: SODIUM CHLORIDE FLUSH SYRINGE 10 ML IV SCH (21:36)
[2018-03-01] MEDS: DEMADEX PO SCH (21:57)
[2018-03-01] MEDS ORDERED: NON-FORMULARY (Torsemide [Demadex] 40 MG) PO SCH (22:00)
[2018-03-01] MEDS: PERCOCET 5/325 PO PRN (23:19)
[2018-03-02] MEDS: PERCOCET 5/325 PO PRN ×3 (06:28→21:29)
[2018-03-02] MEDS: DEMADEX PO SCH ×2 (06:28→18:20)
[2018-03-02] MEDS: HEPARIN/ 0.45% NACL-25,000 UNIT/500 ML 25,000 UNIT/500 ML BAG IV SCH ×2 (06:29→22:51)
[2018-03-02] MEDS: HumaLOG SUB-Q SCH ×4 (09:11→22:40)
[2018-03-02] MEDS: ALDACTONE PO SCH (09:13)
[2018-03-02] MEDS: LOPRESSOR PO SCH ×2 (09:13→21:30)
[2018-03-02] MEDS: HALFPRIN EC PO SCH (09:13)
[2018-03-02] MEDS: COZAAR PO SCH (09:14)
[2018-03-02] MEDS: SODIUM CHLORIDE FLUSH SYRINGE 10 ML IV SCH ×2 (09:15→21:34)
--- NOTE | 2018-03-02 10:19 | Consultation ---
History of Present Illness Consult date: 03/02/18 Requesting physician: MONIQUE JENKINS Consult reason: chest pain, congestive heart failure, elevated troponin History of present illness: The pt is a 32 YO male with a past medical history significant for chronic systolic heart failure, dilated NICMP, AICD in situ, frequent PVCs and NSVT, HTN , DM, chronic RLE DVT (previously on Eliquis for a year then switched to Coumadin as he developed another DVT), morbid obesity, lymphedema. He has been seen by our practice on prior hospitalizations and follows at [facility]. He presented with c/o palpitations, SOB and RLE pain since yesterday AM. He reports that he has been taking care of his sick daughter for the past several days and thus has not been compliant with his own medication regimen and diet. He ate a lot of watermelon yesterday AM and then went to the gym to exercise. While exercising, he developed palpitations and SOB. He went home and called EMS. EMS came to his house and noted pt to have frequent NSVT on their monitor and recommended further evaluation and thus pt was transported to [facility] ED. Pt also c/o RLE aching pain from the knee down to the foot. He has not been compliant with his coumadin and INR on admission was noted to be 0.92. He denies any chest pain, n/v, diaphoresis, dizziness or syncope. Since admission, pt has been noted to have very frequent PVCs and bouts of NSVT. Pt underwent LHC and RHC at [place] on 10/24/2017 which showed angiographically normal coronary arteries, normal right-sided filling pressures with a mean RA pressure of 5 mmHg, mildly elevated pulmonary artery pressures with a mean PA pressure of 27 mmHg and PA pressure was 38/16mmHG, mildly elevated left-sided filling pressures with a mean PCWP of 18 mmHg with a directly measured LVEDP of 20 mmHg, normal cardiac output with a CO of 5.74 L/min with a cardiac index of 1.82 L/min/m2 using a the Albaro equation. Echo done in 02/18/2018 at [place] showed EF 10-15%, LV severely dilated, LA severely dilated, mod TR, grade 2 diastolic dysfunction, mod MR, mod reduced RV systolic function, RVSP 25.2mmHg. Past History Past Medical History: diabetes, DVT, heart failure, hypertension Past Surgical History: Other (AICD ) Social history: single. denies: smoking, alcohol abuse, prescription drug abuse Family history: diabetes, hypertension Medications and Allergies Allergies Allergy/AdvReac Type Severity Reaction Status Date / Time No Known Allergies Allergy Unverified 10/18/17 00:25 Home Medications Medication Instructions Recorded Confirmed Last Taken Type Metformin HCl 1,000 mg PO BID 10/18/17 03/01/18 03/01/18 10:00 History Losartan [Cozaar] 25 mg PO QDAY 11/17/17 03/01/18 03/01/18 10:00 History Torsemide [Demadex] 40 mg PO BID 11/17/17 03/01/18 03/01/18 10:00 History Aspirin [Aspir-Low] 81 mg PO DAILY 02/08/18 03/01/18 03/01/18 10:00 History Oxycodone HCl/Acetaminophen 10 mg PO Q6HR PRN 02/08/18 03/01/18 2 Days Ago History [Percocet 10/325 mg] ~02/27/18 Spironolactone [Aldactone] 25 mg PO QDAY 02/08/18 03/01/18 03/01/18 10:00 History AtorvaSTATin [Lipitor] 40 mg PO QHS #30 tab 02/09/18 03/01/18 1 Day Ago Rx ~02/28/18 Active Meds: Active Medications Acetaminophen (Tylenol) 650 mg PO Q4H PRN PRN Reason: Pain MILD(1-3)/Fever >100.5/ROBERSON Albuterol (Proventil) 2.5 mg IH Q4H PRN PRN Reason: Shortness Of Breath Aspirin (Halfprin Ec) 81 mg PO DAILY [facility] Last Admin: 03/02/18 09:13 Dose: 81 mg Atorvastatin Calcium (Lipitor) 40 mg PO QHS [facility] Last Admin: 03/01/18 21:35 Dose: 40 mg Dextrose (D50w (25gm) Syringe) 50 ml IV PRN PRN PRN Reason: Hypoglycemia Heparin Sodium/Sodium Chloride (Heparin/ 0.45% Nacl-25,000 Unit/500 Ml) 25,000 unit in 500 mls @ 30 mls/hr IV TITR [facility]; Protocol Last Admin: 03/02/18 06:29 Dose: 1,500 units/hr, 30 mls/hr Insulin Human Lispro (Humalog) 0 unit SUB-Q ACHS [facility]; Protocol Last Admin: 03/02/18 09:11 Dose: 2 unit Losartan Potassium (Cozaar) 25 mg PO QDAY [facility] Last Admin: 03/02/18 09:14 Dose: 25 mg Metoprolol Tartrate (Lopressor) 50 mg PO BID [facility] Last Admin: 03/02/18 09:13 Dose: 50 mg Morphine Sulfate (Morphine) 2 mg IV Q4H PRN PRN Reason: Pain, Moderate (4-6) Ondansetron HCl (Zofran) 4 mg IV Q8H PRN PRN Reason: Nausea And Vomiting Oxycodone/Acetaminophen (Percocet 5/325) 2 tab PO Q6H PRN PRN Reason: Pain, Moderate (4-6) Last Admin: 03/02/18 06:28 Dose: 2 tab Sodium Chloride (Sodium Chloride Flush Syringe 10 Ml) 10 ml IV BID [facility] Last Admin: 03/02/18 09:15 Dose: 10 ml Sodium Chloride (Sodium Chloride Flush Syringe 10 Ml) 10 ml IV PRN PRN PRN Reason: LINE FLUSH Spironolactone (Aldactone) 25 mg PO QDAY [facility] Last Admin: 03/02/18 09:13 Dose: 25 mg Torsemide (Demadex) 40 mg PO BID@0600,1800 [facility] Last Admin: 03/02/18 06:28 Dose: 40 mg Review of Systems Constitutional: no weight loss, no weight gain, no fever, no chills, no sweats Ears, nose, mouth and throat: no ear pain, no nose pain, no sinus pressure, no sinus pain Cardiovascular: orthopnea (chronic), palpitations, edema (BLE, chronic), shortness of breath, dyspnea on exertion, high blood pressure, leg edema, no chest pain Respiratory: shortness of breath, dyspnea on exertion, no cough, no congestion, no wheezing, no pain on inspiration Gastrointestinal: no abdominal pain, no nausea, no vomiting, no diarrhea, no constipation, no change in bowel habits Genitourinary Male: no dysuria, no hematuria, no flank pain, no discharge, no urinary frequency, no urinary hesitancy Musculoskeletal: other (RLE pain), no neck stiffness, no neck pain, no shooting arm pain, no arm numbness/tingling, no low back pain Integumentary: no rash, no pruritis, no redness, no sores, no wounds Neurological: no head injury, no paralysis, no seizures, no syncope Psychiatric: no anxiety Endocrine: no cold intolerance, no heat intolerance Hematologic/Lymphatic: no easy bruising, no easy bleeding Allergic/Immunologic: no urticaria, no wheezing, no persistent infections Physical Examination Vital Signs Pulse Resp Pulse Ox 96 H 38 H 99 03/01/18 11:08 03/01/18 11:08 03/01/18 11:08 General appearance: no acute distress HEENT: Positive: PERRL, Normocephaly, Mucus Membranes Moist Neck: Positive: neck supple, trachea midline Cardiac: Positive: Reg Rate and Rhythm, S1/S2 Lungs: Positive: Decreased Breath Sounds Neuro: Positive: Grossly Intact Abdomen: Positive: Soft. Negative: Tender Skin: Positive: Clear. Negative: Rash, Wound Extremities: Present: edema (BLE, chronic) Results 03/01/18 11:40 03/01/18 11:40 Cardiac Enzymes 03/01/18 03/01/18 Range/Units 11:40 12:08 AST 20 (5-40) units/L CK-MB (CK-2) 2.3 (0.0-4.0) ng/mL Coagulation 03/01/18 Range/Units 11:40 PT 12.8 (12.2-14.9) Sec. INR 0.92 (0.87-1.13) APTT 24.1 L (24.2-36.6) Sec. Lipids 03/01/18 Range/Units 11:40 Triglycerides 56 (2-149) mg/dL Cholesterol 147 (50-199) mg/dL HDL Cholesterol 68 H (40-59) mg/dL Cholesterol/HDL Ratio 2.16 % CBC 03/01/18 Range/Units 11:40 WBC 6.7 (4.5-11.0) K/mm3 RBC 6.10 H (3.65-5.03) M/mm3 Hgb 13.7 (11.8-15.2) gm/dl Hct 44.2 (35.5-45.6) % Plt Count 283 (140-440) K/mm3 Lymph # 2.1 (1.2-5.4) K/mm3 [place] # 0.6 (0.0-0.8) K/mm3 Eos # 1.2 H (0.0-0.4) K/mm3 Baso # 0.0 (0.0-0.1) K/mm3 Comprehensive Metabolic Panel 03/01/18 Range/Units 11:40 Sodium 133 L (137-145) mmol/L Potassium 4.6 (3.6-5.0) mmol/L Chloride 98.2 (98-107) mmol/L Carbon Dioxide 18 L (22-30) mmol/L BUN 26 H (9-20) mg/dL Creatinine 1.1 (0.8-1.5) mg/dL Glucose 142 H (75-100) mg/dL Calcium 9.5 (8.4-10.2) mg/dL AST 20 (5-40) units/L ALT 23 (7-56) units/L Alkaline Phosphatase 59 (35-129) units/L Total Protein 8.0 (6.3-8.2) g/dL Albumin 3.6 L (3.9-5) g/dL - Imaging and Cardiology Echo: report reviewed (02/18/2018 at [place] showed EF 10-15%, LV severely dilated, LA severely dilated, mod TR, grade 2 diastolic dysfunction, mod MR, mod reduced RV systolic function, RVSP 25.2mmHg.) Cardiac cath: report reviewed (C and RHC at [place] on 10/24/2017 which showed angiographically normal coronary arteries, normal right-sided filling pressures with a mean RA pressure of 5 mmHg, mildly elevated pulmonary artery pressures with a mean PA pressure of 27 mmHg and PA pressure was 38/16mmHG, mildly elevated left-sided filling pressures with a mean PCWP of 18 mmHg with a directly measured LVEDP of 20 mmHg, normal cardiac output with a CO of 5.74 L/ min with a cardiac index of 1.82 L/min/m2 using a the Albaro equation.) EKG: report reviewed, image reviewed EKG interpretations - Telemetry EKG Rhythm: Sinus Rhythm - EKG Sinus rhythms and dysrhythmias: sinus rhythm Ventricular dysrhythmias: ventricular premature com AV and intraventricular conduction: left bundle branch block Assessment and Plan Assessment: Acute on chronic systolic heart failure - mild component Dilated NICMP - EF 10-15% AICD in situ Minimally elevated troponins - pt denies chest pain, ECG with no acute ischemic changes and unchanged from prior; currently nonspecific Frequent PVCs and NSVT LBBB RLE pain / chronic RLE DVT - previously on Eliquis for a year then switched to Coumadin as he developed another DVT Medical noncompliance HTN DM Morbid obesity Lymphedema Elevated DDimer Plan: Pt has history of chronic DVT in RLE. Vascular report from [facility], [place] on 01/15 showed chronic DVT with recanalized flow in the right popliteal vein. RLE venous doppler pending. Pt has been initiated on heparin gtt per primary. Obtain serum Mg. Cont present cardiac regimen. Assessment and plan reviewed with pt at bedside. The patient has been seen in conjunction with Dr. Marquez who agrees with the assessment and plan of care.
[2018-03-02] MEDS: MORPHINE IV PRN (17:06)
--- NOTE | 2018-03-02 17:41 | Progress Note ---
Assessment and Plan Assessment and plan: 32-year-old -[place] female with past medical history significant for systolic CHF, hypertension, morbid obesity, DVT presented to the emergency department with complaints of right lower extremity pain, chest pain Right lower extremity DVT - Patient was noncompliant with his Coumadin treatment, his INR was 0.96 - Doppler showed no occlusive chronic DVT, not to DVT - Patient is on warfarin and heparin drip - Pain control Chest pain, nonischemic cardiomyopathy with ejection fraction of 15% - Patient has AICD in place - Slight elevation in troponin - Continue his home medications - Cardiology consult appreciated Morbid obesity - Patient is counseled about weight loss, diet and exercise DVT prophylaxis - Patient is on heparin and warfarin Disposition - Continue inpatient care History Interval history: Patient was seen and evaluated this morning, patient is complaining right lower extremity pain and chest pain. Hospitalist Physical - Physical exam Narrative exam: Not in cardiopulmonary distress. The patient is morbidly obese. Vital signs as documented. Head exam is unremarkable. No scleral icterus . Neck is without jugular venous distension, thyromegaly, or carotid bruits. Lungs are clear to auscultation. Cardiac exam reveals regular rate and Rhythm. First and second heart sounds normal. No murmurs, rubs or gallops. Abdominal exam reveals normal bowel sounds, no masses, no organomegaly and no aortic enlargement. Extremities are nonedematous and both femoral and pedal pulses are normal. HUMAN INTELLIGENCE: Alert and oriented 3. No focal weakness. - Constitutional Vitals: Temp Pulse Resp BP Pulse Ox 97.6 F 72 20 113/77 97 03/02/18 16:00 03/02/18 15:34 03/02/18 15:34 03/02/18 15:34 03/02/18 15:34 General appearance: Present: no acute distress Results - Labs CBC & Chem 7: 03/01/18 11:40 03/01/18 11:40 Labs: Laboratory Last Values WBC 6.7 K/mm3 (4.5-11.0) 03/01/18 11:40 RBC 6.10 M/mm3 (3.65-5.03) H 03/01/18 11:40 Hgb 13.7 gm/dl (11.8-15.2) 03/01/18 11:40 Hct 44.2 % (35.5-45.6) 03/01/18 11:40 MCV 73 fl (84-94) L 03/01/18 11:40 MCH 23 pg (28-32) L 03/01/18 11:40 MCHC 31 % (32-34) L 03/01/18 11:40 RDW 16.1 % (13.2-15.2) H 03/01/18 11:40 Plt Count 283 K/mm3 (140-440) 03/01/18 11:40 Lymph % (Auto) 30.8 % (13.4-35.0) 03/01/18 11:40 [place] % (Auto) 9.3 % (0.0-7.3) H 03/01/18 11:40 Eos % (Auto) 1.2 % (0.0-4.3) 03/01/18 11:40 Baso % (Auto) 0.7 % (0.0-1.8) 03/01/18 11:40 Lymph # 2.1 K/mm3 (1.2-5.4) 03/01/18 11:40 [place] # 0.6 K/mm3 (0.0-0.8) 03/01/18 11:40 Eos # 1.2 K/mm3 (0.0-0.4) H 03/01/18 11:40 Baso # 0.0 K/mm3 (0.0-0.1) 03/01/18 11:40 Seg Neutrophils % 58.0 % (40.0-70.0) 03/01/18 11:40 Seg Neutrophils # 3.9 K/mm3 (1.8-7.7) 03/01/18 11:40 PT 12.8 Sec. (12.2-14.9) 03/01/18 11:40 INR 0.92 (0.87-1.13) 03/01/18 11:40 APTT 24.1 Sec. (24.2-36.6) L 03/01/18 11:40 D-Dimer 3554.29 ng/mlDDU (0-234) H 03/01/18 11:40 Heparin Anti-Xa Level 0.70 U.I./ml (0.3-0.7) 03/02/18 09:03 Sodium 133 mmol/L (137-145) L 03/01/18 11:40 Potassium 4.6 mmol/L (3.6-5.0) 03/01/18 11:40 Chloride 98.2 mmol/L (98-107) 03/01/18 11:40 Carbon Dioxide 18 mmol/L (22-30) L 03/01/18 11:40 Anion Gap 21 mmol/L 03/01/18 11:40 BUN 26 mg/dL (9-20) H 03/01/18 11:40 Creatinine 1.1 mg/dL (0.8-1.5) 03/01/18 11:40 Estimated GFR > 60 ml/min 03/01/18 11:40 BUN/Creatinine Ratio 24 % 03/01/18 11:40 Glucose 142 mg/dL (75-100) H 03/01/18 11:40 POC Glucose 149 (70-105) H 03/02/18 15:41 Calcium 9.5 mg/dL (8.4-10.2) 03/01/18 11:40 Magnesium 2.30 mg/dL (1.7-2.3) 03/02/18 15:00 Total Bilirubin 0.30 mg/dL (0.1-1.2) 03/01/18 11:40 AST 20 units/L (5-40) 03/01/18 11:40 ALT 23 units/L (7-56) 03/01/18 11:40 Alkaline Phosphatase 59 units/L (35-129) 03/01/18 11:40 Total Creatine Kinase 145 units/L (55-170) 03/01/18 12:08 CK-MB (CK-2) 2.3 ng/mL (0.0-4.0) 03/01/18 12:08 CK-MB (CK-2) Rel Index 1.5 (0-4) 03/01/18 12:08 Troponin T 0.048 ng/mL (0.00-0.029) H 03/01/18 11:40 NT-Pro-B Natriuret Pep 1994 pg/mL (0-450) H 03/01/18 12:08 Total Protein 8.0 g/dL (6.3-8.2) 03/01/18 11:40 Albumin 3.6 g/dL (3.9-5) L 03/01/18 11:40 Albumin/Globulin Ratio 0.8 % 03/01/18 11:40 Triglycerides 56 mg/dL (2-149) 03/01/18 11:40 Cholesterol 147 mg/dL (50-199) 03/01/18 11:40 LDL Cholesterol Direct 71 mg/dL (50-130) 03/01/18 11:40 HDL Cholesterol 68 mg/dL (40-59) H 03/01/18 11:40 Cholesterol/HDL Ratio 2.16 % 03/01/18 11:40 Lipase 36 units/L (13-60) 03/01/18 11:40 Urine Color Yellow (Yellow) 03/01/18 14:23 Urine Turbidity Cloudy (Clear) 03/01/18 14:23 Urine pH 5.0 (5.0-7.0) 03/01/18 14:23 Ur Specific [place] 1.021 (1.003-1.030) 03/01/18 14:23 Urine Protein 30 mg/dl mg/dL (Negative) 03/01/18 14:23 Urine Glucose (UA) Neg mg/dL (Negative) 03/01/18 14:23 Urine Ketones Neg mg/dL (Negative) 03/01/18 14:23 Urine Blood Mod (Negative) 03/01/18 14:23 Urine Nitrite Neg (Negative) 03/01/18 14:23 Urine Bilirubin Neg (Negative) 03/01/18 14:23 Urine Urobilinogen 2.0 mg/dL (<2.0) 03/01/18 14:23 Ur Leukocyte Esterase Neg (Negative) 03/01/18 14:23 Urine WBC (Auto) 1.0 /HPF (0.0-6.0) 03/01/18 14:23 Urine RBC (Auto) 19.0 /HPF (0.0-6.0) 03/01/18 14:23 U Epithel Cells (Auto) 1.0 /HPF (0-13.0) 03/01/18 14:23 Urine Bacteria (Auto) 1+ /HPF (Negative) 03/01/18 14:23 Urine Mucus Few /HPF 03/01/18 14:23 Urine Opiates Screen Presumptive negative 03/01/18 14:22 Urine Methadone Screen Presumptive negative 03/01/18 14:22 Ur Barbiturates Screen Presumptive negative 03/01/18 14:22 Ur Phencyclidine Scrn Presumptive negative 03/01/18 14:22 Ur Amphetamines Screen Presumptive negative 03/01/18 14:22 U Benzodiazepines Scrn Presumptive negative 03/01/18 14:22 Urine Cocaine Screen Presumptive negative 03/01/18 14:22 U Marijuana (THC) Screen Presumptive negative 03/01/18 14:22 Drugs of Abuse Note Disclamer 03/01/18 14:22
[2018-03-02] MEDS ORDERED: COUMADIN PO SCH (18:30)
[2018-03-03] MEDS: MORPHINE IV PRN ×2 (04:13→10:20)
[2018-03-03] MEDS: DEMADEX PO SCH ×2 (04:13→05:36)
[2018-03-03 05:40] LABS: Hematocrit 42.9 % (35.5-45.6); Hemoglobin 13.2 gm/dl (11.8-15.2)
[2018-03-03 05:53] LABS: INR 1.05 (0.87-1.13)
[2018-03-03 05:57] LABS: BUN/Creatinine Ratio 21; Blood Urea Nitrogen 29 mg/dL (9-20); Calcium 9.6 mg/dL (8.4-10.2); Hemolysis Index 31
[2018-03-03] MEDS: PERCOCET 5/325 PO PRN (06:31)
--- NOTE | 2018-03-03 08:20 | Progress Note ---
Assessment and Plan Assessment and plan: 32-year-old -Ang[place] female with past medical history significant for systolic CHF, hypertension, morbid obesity, DVT presented to the emergency department with complaints of right lower extremity pain, chest pain Right lower extremity DVT - Patient was noncompliant with his Coumadin treatment, his INR was 0.96 - Doppler showed no occlusive chronic DVT, not to DVT - Patient is on warfarin and heparin drip - Pain control Chest pain, nonischemic cardiomyopathy with ejection fraction of 15% - Patient has AICD in place - Slight elevation in troponin - Continue his home medications - Cardiology consult appreciated Morbid obesity - Patient is counseled about weight loss, diet and exercise DVT prophylaxis - Patient is on heparin and warfarin - INR is sub therapeutic Disposition - History Interval history: Patient was seen and evaluated this morning, patient is complaining right lower extremity pain and chest pain. Hospitalist Physical - Physical exam Narrative exam: Not in cardiopulmonary distress. The patient is morbidly obese. Vital signs as documented. Head exam is unremarkable. No scleral icterus . Neck is without jugular venous distension, thyromegaly, or carotid bruits. Lungs are clear to auscultation. Cardiac exam reveals regular rate and Rhythm. First and second heart sounds normal. No murmurs, rubs or gallops. Abdominal exam reveals normal bowel sounds, no masses, no organomegaly and no aortic enlargement. Extremities are nonedematous and both femoral and pedal pulses are normal. COMBAT SYSTEMS ENGINEER: Alert and oriented 3. No focal weakness. - Constitutional Vitals: Temp Pulse Resp BP Pulse Ox 97.9 F 72 18 116/75 100 03/03/18 04:25 03/03/18 04:25 03/03/18 04:25 03/03/18 04:25 03/03/18 04:25 General appearance: Present: no acute distress Results - Labs CBC & Chem 7: 03/03/18 04:34 03/03/18 04:34 Labs: Laboratory Last Values WBC 6.7 K/mm3 (4.5-11.0) 03/01/18 11:40 RBC 6.10 M/mm3 (3.65-5.03) H 03/01/18 11:40 Hgb 13.2 gm/dl (11.8-15.2) 03/03/18 04:34 Hct 42.9 % (35.5-45.6) 03/03/18 04:34 MCV 73 fl (84-94) L 03/01/18 11:40 MCH 23 pg (28-32) L 03/01/18 11:40 MCHC 31 % (32-34) L 03/01/18 11:40 RDW 16.1 % (13.2-15.2) H 03/01/18 11:40 Plt Count 241 K/mm3 (140-440) 03/03/18 04:34 Lymph % (Auto) 30.8 % (13.4-35.0) 03/01/18 11:40 [place] % (Auto) 9.3 % (0.0-7.3) H 03/01/18 11:40 Eos % (Auto) 1.2 % (0.0-4.3) 03/01/18 11:40 Baso % (Auto) 0.7 % (0.0-1.8) 03/01/18 11:40 Lymph # 2.1 K/mm3 (1.2-5.4) 03/01/18 11:40 [place] # 0.6 K/mm3 (0.0-0.8) 03/01/18 11:40 Eos # 1.2 K/mm3 (0.0-0.4) H 03/01/18 11:40 Baso # 0.0 K/mm3 (0.0-0.1) 03/01/18 11:40 Seg Neutrophils % 58.0 % (40.0-70.0) 03/01/18 11:40 Seg Neutrophils # 3.9 K/mm3 (1.8-7.7) 03/01/18 11:40 PT 14.2 Sec. (12.2-14.9) 03/03/18 04:34 INR 1.05 (0.87-1.13) 03/03/18 04:34 APTT 24.1 Sec. (24.2-36.6) L 03/01/18 11:40 D-Dimer 3554.29 ng/mlDDU (0-234) H 03/01/18 11:40 Heparin Anti-Xa Level 0.70 U.I./ml (0.3-0.7) 03/02/18 09:03 Sodium 135 mmol/L (137-145) L 03/03/18 04:34 Potassium 4.6 mmol/L (3.6-5.0) 03/03/18 04:34 Chloride 96.6 mmol/L (98-107) L 03/03/18 04:34 Carbon Dioxide 22 mmol/L (22-30) 03/03/18 04:34 Anion Gap 21 mmol/L 03/03/18 04:34 BUN 29 mg/dL (9-20) H 03/03/18 04:34 Creatinine 1.4 mg/dL (0.8-1.5) 03/03/18 04:34 Estimated GFR > 60 ml/min 03/03/18 04:34 BUN/Creatinine Ratio 21 % 03/03/18 04:34 Glucose 122 mg/dL (75-100) H 03/03/18 04:34 POC Glucose 147 (70-105) H 03/03/18 06:09 Calcium 9.6 mg/dL (8.4-10.2) 03/03/18 04:34 Magnesium 2.30 mg/dL (1.7-2.3) 03/02/18 15:00 Total Bilirubin 0.30 mg/dL (0.1-1.2) 03/01/18 11:40 AST 20 units/L (5-40) 03/01/18 11:40 ALT 23 units/L (7-56) 03/01/18 11:40 Alkaline Phosphatase 59 units/L (35-129) 03/01/18 11:40 Total Creatine Kinase 145 units/L (55-170) 03/01/18 12:08 CK-MB (CK-2) 2.3 ng/mL (0.0-4.0) 03/01/18 12:08 CK-MB (CK-2) Rel Index 1.5 (0-4) 03/01/18 12:08 Troponin T 0.048 ng/mL (0.00-0.029) H 03/01/18 11:40 NT-Pro-B Natriuret Pep 1994 pg/mL (0-450) H 03/01/18 12:08 Total Protein 8.0 g/dL (6.3-8.2) 03/01/18 11:40 Albumin 3.6 g/dL (3.9-5) L 03/01/18 11:40 Albumin/Globulin Ratio 0.8 % 03/01/18 11:40 Triglycerides 56 mg/dL (2-149) 03/01/18 11:40 Cholesterol 147 mg/dL (50-199) 03/01/18 11:40 LDL Cholesterol Direct 71 mg/dL (50-130) 03/01/18 11:40 HDL Cholesterol 68 mg/dL (40-59) H 03/01/18 11:40 Cholesterol/HDL Ratio 2.16 % 03/01/18 11:40 Lipase 36 units/L (13-60) 03/01/18 11:40 Urine Color Yellow (Yellow) 03/01/18 14:23 Urine Turbidity Cloudy (Clear) 03/01/18 14:23 Urine pH 5.0 (5.0-7.0) 03/01/18 14:23 Ur Specific [place] 1.021 (1.003-1.030) 03/01/18 14:23 Urine Protein 30 mg/dl mg/dL (Negative) 03/01/18 14:23 Urine Glucose (UA) Neg mg/dL (Negative) 03/01/18 14:23 Urine Ketones Neg mg/dL (Negative) 03/01/18 14:23 Urine Blood Mod (Negative) 03/01/18 14:23 Urine Nitrite Neg (Negative) 03/01/18 14:23 Urine Bilirubin Neg (Negative) 03/01/18 14:23 Urine Urobilinogen 2.0 mg/dL (<2.0) 03/01/18 14:23 Ur Leukocyte Esterase Neg (Negative) 03/01/18 14:23 Urine WBC (Auto) 1.0 /HPF (0.0-6.0) 03/01/18 14:23 Urine RBC (Auto) 19.0 /HPF (0.0-6.0) 03/01/18 14:23 U Epithel Cells (Auto) 1.0 /HPF (0-13.0) 03/01/18 14:23 Urine Bacteria (Auto) 1+ /HPF (Negative) 03/01/18 14:23 Urine Mucus Few /HPF 03/01/18 14:23 Urine Opiates Screen Presumptive negative 03/01/18 14:22 Urine Methadone Screen Presumptive negative 03/01/18 14:22 Ur Barbiturates Screen Presumptive negative 03/01/18 14:22 Ur Phencyclidine Scrn Presumptive negative 03/01/18 14:22 Ur Amphetamines Screen Presumptive negative 03/01/18 14:22 U Benzodiazepines Scrn Presumptive negative 03/01/18 14:22 Urine Cocaine Screen Presumptive negative 03/01/18 14:22 U Marijuana (THC) Screen Presumptive negative 03/01/18 14:22 Drugs of Abuse Note Disclamer 03/01/18 14:22
[2018-03-03 09:03] VITALS: BP 130/69
--- NOTE | 2018-03-03 09:34 | Progress Note ---
Assessment and Plan Assessment: Acute on chronic systolic heart failure - mild component; nearing/at euvolemia Dilated NICMP - EF 10-15% AICD in situ Minimally elevated troponins - pt denies chest pain, ECG with no acute ischemic changes and unchanged from prior; currently nonspecific Frequent PVCs and NSVT LBBB RLE pain / chronic RLE DVT Medical noncompliance HTN DM Morbid obesity - pt considering gastric bypass surgery Lymphedema Plan: RLE venous duplex showed chronic recanalized DVT in right popliteal vein, no acute DVT or SVT. Pt has been initiated on heparin gtt and coumadin per primary. No current apparent indication for continuation of systemic anticoagulation given chronic nature of DVT. Will defer to primary. Cont present cardiac regimen. Pt may discharge home from cardiology standpoint. 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, within 3-5 days of hospital discharge. Pt verbalizes understanding. Assessment and plan reviewed with pt at bedside. The patient has been seen in conjunction with Dr. Marquez who agrees with the assessment and plan of care. Subjective Date of service: 03/03/18 Principal diagnosis: HF; chronic DVT Interval history: pt resting comfortably in bed, no current complaints. states he is feeling better today. tele reviewed - pt continues to have frequent PVCs and short bouts of NSVT. Objective Last Vital Signs Temp 97.4 F L 03/03/18 07:31 Pulse 69 03/03/18 07:31 Resp 18 03/03/18 07:31 BP 130/69 03/03/18 07:31 Pulse Ox 94 03/03/18 07:31 - Physical Examination General: No Apparent Distress HEENT: Positive: PERRL, Normocephaly, Mucus Membranes Moist Neck: Positive: neck supple, trachea midline Cardiac: Positive: Reg Rate and Rhythm, S1/S2 Lungs: Positive: Decreased Breath Sounds Neuro: Positive: Grossly Intact Abdomen: Positive: Soft. Negative: Tender Skin: Positive: Clear. Negative: Rash, Wound Extremities: Present: edema (BLE, chronic) - Labs and Meds Coagulation 03/03/18 Range/Units 04:34 PT 14.2 (12.2-14.9) Sec. INR 1.05 (0.87-1.13) CBC 03/03/18 Range/Units 04:34 Hgb 13.2 (11.8-15.2) gm/dl Hct 42.9 (35.5-45.6) % Plt Count 241 (140-440) K/mm3 Comprehensive Metabolic Panel 03/03/18 Range/Units 04:34 Sodium 135 L (137-145) mmol/L Potassium 4.6 (3.6-5.0) mmol/L Chloride 96.6 L (98-107) mmol/L Carbon Dioxide 22 (22-30) mmol/L BUN 29 H (9-20) mg/dL Creatinine 1.4 (0.8-1.5) mg/dL Glucose 122 H (75-100) mg/dL Calcium 9.6 (8.4-10.2) mg/dL - Imaging and Cardiology EKG: report reviewed, image reviewed Echo: report reviewed (02/18/2018 at [place] showed EF 10-15%, LV severely dilated, LA severely dilated, mod TR, grade 2 diastolic dysfunction, mod MR, mod reduced RV systolic function, RVSP 25.2mmHg.) Cardiac cath: report reviewed (C and [facility] at [place] on 10/24/2017 which showed angiographically normal coronary arteries, normal right-sided filling pressures with a mean RA pressure of 5 mmHg, mildly elevated pulmonary artery pressures with a mean PA pressure of 27 mmHg and PA pressure was 38/16mmHG, mildly elevated left-sided filling pressures with a mean PCWP of 18 mmHg with a directly measured LVEDP of 20 mmHg, normal cardiac output with a CO of 5.74 L/ min with a cardiac index of 1.82 L/min/m2 using a the Albrao equation.) - Telemetry EKG Rhythm: Sinus Rhythm - EKG Sinus rhythms and dysrhythmias: sinus rhythm Ventricular dysrhythmias: ventricular premature com AV and intraventricular conduction: left bundle branch block
[2018-03-03] MEDS: COZAAR PO SCH (10:21)
[2018-03-03] MEDS: LOPRESSOR PO SCH (10:21)
[2018-03-03] MEDS: ALDACTONE PO SCH (10:21)
[2018-03-03] MEDS: HALFPRIN EC PO SCH (10:22)
--- NOTE | 2018-03-03 11:34 | Discharge Summary ---
Providers - Providers Date of Admission: 03/01/18 14:30 Date of discharge: 03/03/18 Attending physician: MONIQUE JENKINS MD 03/02/18 08:18 Consult to Physician [CONS] Routine Comment: Consulting Provider: SAMANTHA NUNEZ Physician Instructions: Reason For Exam: chest pain, CHF elevated troponin Primary care physician: RESIDENTIAL SOLAR SALES CONSULTANT Hospitalization Reason for admission: Chest pain, right leg pain Condition: Stable Disposition: DC-01 TO HOME OR SELFCARE Time spent for discharge: 32 minutes - Discharge Diagnoses (1) Cardiomyopathy Status: Acute Qualifiers: Cardiomyopathy type: unspecified Qualified Code(s): I42.9 - Cardiomyopathy , unspecified (2) Obesity hypoventilation syndrome Status: Acute (3) Morbid obesity Status: Acute (4) HTN (hypertension) Status: Chronic Qualifiers: Hypertension type: essential hypertension Qualified Code(s): I10 - Essential (primary) hypertension (5) History of DVT (deep vein thrombosis) Status: Chronic (6) Hypertension Status: Chronic Qualifiers: Hypertension type: essential hypertension Qualified Code(s): I10 - Essential (primary) hypertension (7) NICM (nonischemic cardiomyopathy) Status: Chronic (8) T2DM (type 2 diabetes mellitus) Status: Chronic Qualifiers: Diabetes mellitus skilled nursing insulin use: without terminal clerk use Core Measure Documentation - Palliative Care Palliative Care/ Comfort Measures: Not Applicable - Core Measures Any of the following diagnoses?: history only (DVT) Exam - Physical Exam Narrative exam: Not in cardiopulmonary distress. The patient is morbidly obese. Vital signs as documented. Head exam is unremarkable. No scleral icterus . Neck is without jugular venous distension, thyromegaly, or carotid bruits. Lungs are clear to auscultation. Cardiac exam reveals regular rate and Rhythm. First and second heart sounds normal. No murmurs, rubs or gallops. Abdominal exam reveals normal bowel sounds, no masses, no organomegaly and no aortic enlargement. Extremities are nonedematous and both femoral and pedal pulses are normal. GIS TECHNICIAN: Alert and oriented 3. No focal weakness. - Constitutional Vitals: Temp Pulse Resp BP Pulse Ox 97.4 F L 69 18 130/69 94 03/03/18 07:31 03/03/18 07:31 03/03/18 07:31 03/03/18 07:31 03/03/18 07:31 Plan Activity: no restrictions Weight Bearing Status: Full Weight Bearing Diet: low fat, low cholesterol, low salt, diabetic Additional Instructions: F/U with your PCP and varnisher. Follow up with: PRIMARY CARE, [Primary Care Provider] - 3-5 Days Forms: Warfarin Discharge Instruction
[2018-03-03] MEDS: HumaLOG SUB-Q SCH (16:05)
[2018-03-03] MEDS: SODIUM CHLORIDE FLUSH SYRINGE 10 ML IV SCH (16:06)
--- NOTE | 2018-03-04 17:41 | Vascular Lab Report ---
Right Lower Extremity Venous Duplex Study: Reason for Exam: Pain and swelling of the right lower extremity. Comments on the Right: Partially occluding chronic thrombus is seen in the popliteal vein. This thrombus was noted on a previous study dated January 22, 2018 and also on the study dated October 21, 2017. It appears unchanged. The remaining veins visualized are freely compressible without evidence of internal echogenicity. Spontaneous and phasic flow is present proximally. Comments on the Left: A limited duplex study was done of the proximal veins of the left lower extremity. All veins visualized are freely compressible without evidence of internal echogenicity. Flow is spontaneous and phasic throughout. No evidence of acute or chronic thrombus is seen in any of the vessels visualized. Impression: Chronic deep venous thrombosis which is partially occluding in the right popliteal vein. This same thrombus has been seen since October of 2017 without any change. No evidence of acute deep venous thrombosis in the right lower extremity.
== END 2018-03-03 15:30 | disposition home or self-care (01) | DRG 291 ==
LOC: ED 11:06 → 4A 14:30
PROVIDERS: ADMIT Internal Medicine; ATTEND Internal Medicine
DX: I11.0 Hypertensive heart disease with heart failure (principal); J96.01 Acute respiratory failure with hypoxia; E66.2 Morbid (severe) obesity with alveolar hypoventilation; Z68.44 Body mass index [BMI] 60.0-69.9, adult; I47.1 Supraventricular tachycardia; D68.59 Other primary thrombophilia; I50.23 Acute on chronic systolic (congestive) heart failure; I42.0 Dilated cardiomyopathy; E11.9 Type 2 diabetes mellitus without complications; I89.0 Lymphedema, not elsewhere classified; I25.10 Atherosclerotic heart disease of native coronary artery without angina pectoris; I44.7 Left bundle-branch block, unspecified; I49.3 Ventricular premature depolarization; Z86.718 Personal history of other venous thrombosis and embolism; Z95.810 Presence of automatic (implantable) cardiac defibrillator; Z91.14 Patient's other noncompliance with medication regimen; Z71.3 Dietary counseling and surveillance; Z79.01 Long term (current) use of anticoagulants; Z82.49 Family history of ischemic heart disease and other diseases of the circulatory system; Z83.3 Family history of diabetes mellitus; Z79.82 Long term (current) use of aspirin; Z79.899 Other long term (current) drug therapy; I25.2 Old myocardial infarction
CPT/HCPCS: 36415; 71045; 80048; 80053; 80061; 80307; 81001; 82550; 82553; 82962; 83690; 83735; 83880; 84484; 85014; 85018; 85025; 85049; 85379; 85520; 85610; 85730; 93005; 93010; 94760; A9270-GY; J1644; J2270; J2405

== ENCOUNTER 2018-04-14 12:04 | Inpatient (IN) | payer OTHER ==
[2018-04-14 12:58] LABS: Basophils # (Auto) 0.1 K/mm3 (0.0-0.1); Eosinophils # (Auto) 0.1 K/mm3 (0.0-0.4); Eosinophils % (Auto) 1.4 % (0.0-4.3); Hematocrit 36.8 % (35.5-45.6); Hemoglobin 11.5 gm/dl (11.8-15.2); Lymphocytes # (Auto) 1.6 K/mm3 (1.2-5.4); Lymphocytes % (Auto) 21.2 % (13.4-35.0); Mean Corpuscular HGB Conc 31 % (32-34); Mean Corpuscular Hemoglobin 23 pg (28-32); Mean Corpuscular Volume 74 fl (84-94); Monocytes # (Auto) 0.7 K/mm3 (0.0-0.8); Monocytes % (Auto) 9.3 % (0.0-7.3); Platelet Count 262 K/mm3 (140-440); Red Blood Count 5.01 M/mm3 (3.65-5.03); Red Cell Distribution Width 17.1 % (13.2-15.2)
[2018-04-14] MEDS ORDERED: DILAUDID IV ONE (13:03)
[2018-04-14] MEDS ORDERED: ZOFRAN IV ONE (13:03)
[2018-04-14 13:12] LABS: INR 1.25 (0.87-1.13)
[2018-04-14 13:13] LABS: Partial Thromboplastin Time 31.9 Sec. (24.2-36.6)
--- NOTE | 2018-04-14 13:17 | XRay Report ---
AP CHEST: HISTORY: Short of breath Moderate cardiomegaly and single-lead pacemaker device are unchanged since 03/01/18. Mild pulmonary venous congestion has developed. Small right pleural effusion is suspected. No evidence for pneumonia or pneumothorax. IMPRESSION: CHF.
[2018-04-14 13:19] LABS: BUN/Creatinine Ratio 16; Blood Urea Nitrogen 23 mg/dL (9-20); Calcium 8.8 mg/dL (8.4-10.2); Hemolysis Index 5
--- NOTE | 2018-04-14 13:34 | Emergency Department Report ---
ED Chest Pain HPI - General Chief Complaint: Chest Pain Stated Complaint: CHEST PAIN Time Seen by Provider: 04/14/18 12:24 Source: patient, EMS, old records reviewed Mode of arrival: Stretcher Limitations: No Limitations - History of Present Illness Initial Comments: 32-year-old male with a past medical history CHF with EF of 15%, DVT, diabetes, nonischemic cardiomyopathy, an AICD presents to the hospital with complaints of sudden onset of chest pain and shortness of breath that started after exercising today. Patient states he typically walks 1.5 miles daily. he denies symptoms with his walk yesterday. Patient took his medication earlier today including starting isosorbide today. While walking his 1.5 miles he developed stabbing left upper chest pain radiating to the left jaw and neck. Pain is constant, 9/10 in intensity, and was worse with movement of his left arm and inspiration. Patient also feeling more short of breath the usual. He complains of weight gain the last 3 days. Patient was noticed to have runs of nonsustained V. tach on arrival as per RN. Patient is a Burning pain to right lower leg that has been constant and severe since walk. Pt is currently in pain management and takes Percocet 10 mg for lymphedema associated pain. He did not have his pain medication today. Patient has been admitted here several times this year. As per one of the progress notes pt neg cardiac cath earlier this year (report not available). 03/02/18 patient had a bilateral leg Dopplers showing chronic right leg DVT and patient is not currently on anticoagulation as per vascular recommendation. Patient is unable to obtain CT because he exceededs the weight limit. Severity scale (0 -10): 9 - Related Data Home Medications Medication Instructions Recorded Confirmed Last Taken Metformin HCl 1,000 mg PO BID 10/18/17 03/01/18 03/01/18 10:00 Losartan [Cozaar] 25 mg PO QDAY 11/17/17 03/01/18 03/01/18 10:00 Torsemide [Demadex] 40 mg PO BID 11/17/17 03/01/18 03/01/18 10:00 Aspirin [Aspir-Low] 81 mg PO DAILY 02/08/18 03/01/18 03/01/18 10:00 Oxycodone HCl/Acetaminophen 10 mg PO Q6HR PRN 02/08/18 03/01/18 2 Days Ago [Percocet 10/325 mg] ~02/27/18 Spironolactone [Aldactone] 25 mg PO QDAY 02/08/18 03/01/18 03/01/18 10:00 Previous Rx's Medication Instructions Recorded Last Taken Type AtorvaSTATin [Lipitor] 40 mg PO QHS #30 tab 02/09/18 1 Day Ago Rx ~02/28/18 Allergies Allergy/AdvReac Type Severity Reaction Status Date / Time prochlorperazine Allergy Hives Verified 04/14/18 12:13 [From Compazine] Heart Score - HEART Score History: Moderately suspicious EKG: Non-specific Age: < 45 Risk factors: > 3 risk factors or hx of atherosclerotic disease Troponin: 1-3x normal limit HEART Score: 5 ED Review of Systems ROS: Stated complaint: CHEST PAIN Other details as noted in HPI Comment: All other systems reviewed and negative ED Past Medical Hx - Past Medical History Hx Hypertension: Yes Hx Heart Attack/AMI: Yes (2015) Hx Congestive Heart Failure: Yes Hx Diabetes: Yes Hx Deep Vein Thrombosis: Yes Hx Asthma: No Hx COPD: No Additional medical history: R sided chest tube, -infection in lung. defibrillator 10/2017. EJ 15% - Surgical History Hx Pacemaker: Yes Hx Internal Defibrillator: Yes Additional Surgical History: lymphadema - Social History Smoking Status: Never Smoker Substance Use Type: None - Medications Home Medications: Home Medications Medication Instructions Recorded Confirmed Last Taken Type Metformin HCl 1,000 mg PO BID 10/18/17 03/01/18 03/01/18 10:00 History Losartan [Cozaar] 25 mg PO QDAY 11/17/17 03/01/18 03/01/18 10:00 History Torsemide [Demadex] 40 mg PO BID 11/17/17 03/01/18 03/01/18 10:00 History Aspirin [Aspir-Low] 81 mg PO DAILY 02/08/18 03/01/18 03/01/18 10:00 History Oxycodone HCl/Acetaminophen 10 mg PO Q6HR PRN 02/08/18 03/01/18 2 Days Ago History [Percocet 10/325 mg] ~02/27/18 Spironolactone [Aldactone] 25 mg PO QDAY 02/08/18 03/01/18 03/01/18 10:00 History AtorvaSTATin [Lipitor] 40 mg PO QHS #30 tab 02/09/18 03/01/18 1 Day Ago Rx ~02/28/18 ED Physical Exam - General Limitations: No Limitations - Other Other exam information: General: No limitations, patient is alert in no acute distress Head exam: Atraumatic, normocephalic Eyes exam: Normal appearance ENT: Moist mucous membrane, normal oropharynx Neck exam: Normal inspection, full range of motion, no meningismus nontender Respiratory exam: Diminished bilateral breath sounds, tachypnea. Tenderness to the left upper chest wall and clavicle and extending above the clavicle. Increased pain with abduction of left Cardiovascular: Normal rate and rhythm Abdomen: Soft, nondistended, and nontender, with normal bowel sounds, no rebound, or guarding Extremity: Bilateral lymphedema with tenderness to right calf. No erythema or warmth. Legs symmetric in size Back: Normal Inspection, full range of motion, no tenderness Neurologic: Alert, oriented x3, cranial nerves intact, no motor or sensory deficit Psychiatric: normal affect, normal mood Skin: Warm, dry, intact ED Course Vital Signs 04/14/18 04/14/18 04/14/18 08:36 10:30 11:12 Temperature Pulse Rate Respiratory Rate Blood Pressure O2 Sat by Pulse 79 L 90 85 Oximetry 04/14/18 04/14/18 04/14/18 11:20 12:11 12:14 Temperature 98.5 F Pulse Rate 92 H Respiratory 20 Rate Blood Pressure 150/96 150/96 O2 Sat by Pulse 73 L 96 96 Oximetry 04/14/18 04/14/18 04/14/18 12:16 12:34 12:46 Temperature Pulse Rate 97 H 90 91 H Respiratory 19 19 16 Rate Blood Pressure 150/96 128/96 O2 Sat by Pulse 94 98 99 Oximetry 04/14/18 04/14/18 04/14/18 13:00 14:00 14:16 Temperature Pulse Rate 93 H 86 86 Respiratory 18 15 24 Rate Blood Pressure 140/106 135/93 145/90 O2 Sat by Pulse 98 99 99 Oximetry 04/14/18 04/14/18 04/14/18 14:30 14:46 15:00 Temperature Pulse Rate 84 91 H 86 Respiratory 21 14 21 Rate Blood Pressure 135/93 130/83 130/83 O2 Sat by Pulse 97 97 99 Oximetry 04/14/18 04/14/18 04/14/18 15:16 15:30 15:46 Temperature Pulse Rate 132 H 90 84 Respiratory 38 H 39 H 12 Rate Blood Pressure 130/83 130/83 130/83 O2 Sat by Pulse 97 99 98 Oximetry 04/14/18 16:00 Temperature Pulse Rate 83 Respiratory 14 Rate Blood Pressure 142/87 O2 Sat by Pulse 96 Oximetry - Consultations Consultation #1: 04/14/18 Christine Edward cardiology has been consulted. SABRINA score - Sabrina Score Age > 65: (1) Yes Aspirin use within the Past 7 Days: (1) Yes 3 or more CAD Risk Factors: (1) Yes 2 or more Angina events in past 24 hrs: (1) Yes Known CAD with more than 50% Stenosis: (0) No Elevated Cardiac Markers: (1) Yes ST Deviation Greater than 0.5mm: (0) No SABRINA Score: 5 ED Medical Decision Making - Lab Data Result diagrams: 04/14/18 12:40 04/14/18 12:40 Lab Results 04/14/18 04/14/18 04/14/18 Range/Units 12:40 12:40 12:40 WBC 7.4 (4.5-11.0) K/mm3 RBC 5.01 (3.65-5.03) M/mm3 Hgb 11.5 L (11.8-15.2) gm/dl Hct 36.8 (35.5-45.6) % MCV 74 L (84-94) fl MCH 23 L (28-32) pg MCHC 31 L (32-34) % RDW 17.1 H (13.2-15.2) % Plt Count 262 (140-440) K/mm3 Lymph % (Auto) 21.2 (13.4-35.0) % Payne % (Auto) 9.3 H (0.0-7.3) % Eos % (Auto) 1.4 (0.0-4.3) % Baso % (Auto) 1.0 (0.0-1.8) % Lymph # 1.6 (1.2-5.4) K/mm3 Payne # 0.7 (0.0-0.8) K/mm3 Eos # 0.1 (0.0-0.4) K/mm3 Baso # 0.1 (0.0-0.1) K/mm3 Seg Neutrophils % 67.1 (40.0-70.0) % Seg Neutrophils # 4.9 (1.8-7.7) K/mm3 PT 16.4 H (12.2-14.9) Sec. INR 1.25 H (0.87-1.13) APTT 31.9 (24.2-36.6) Sec. Sodium 134 L (137-145) mmol/L Potassium 3.8 (3.6-5.0) mmol/L Chloride 101.8 (98-107) mmol/L Carbon Dioxide 20 L (22-30) mmol/L Anion Gap 16 mmol/L BUN 23 H (9-20) mg/dL Creatinine 1.4 (0.8-1.5) mg/dL Estimated GFR > 60 ml/min BUN/Creatinine Ratio 16 % Glucose 165 H (75-100) mg/dL Calcium 8.8 (8.4-10.2) mg/dL Magnesium (1.7-2.3) mg/dL Troponin T 0.030 H (0.00-0.029) ng/mL NT-Pro-B Natriuret Pep (0-450) pg/mL Triglycerides 137 (2-149) mg/dL Cholesterol 126 (50-199) mg/dL LDL Cholesterol Direct 56 (50-130) mg/dL HDL Cholesterol 49 (40-59) mg/dL Cholesterol/HDL Ratio 2.57 % 04/14/18 04/14/18 04/14/18 Range/Units 12:40 12:40 14:50 WBC (4.5-11.0) K/mm3 RBC (3.65-5.03) M/mm3 Hgb (11.8-15.2) gm/dl Hct (35.5-45.6) % MCV (84-94) fl MCH (28-32) pg MCHC (32-34) % RDW (13.2-15.2) % Plt Count (140-440) K/mm3 Lymph % (Auto) (13.4-35.0) % Payne % (Auto) (0.0-7.3) % Eos % (Auto) (0.0-4.3) % Baso % (Auto) (0.0-1.8) % Lymph # (1.2-5.4) K/mm3 Payne # (0.0-0.8) K/mm3 Eos # (0.0-0.4) K/mm3 Baso # (0.0-0.1) K/mm3 Seg Neutrophils % (40.0-70.0) % Seg Neutrophils # (1.8-7.7) K/mm3 PT (12.2-14.9) Sec. INR (0.87-1.13) APTT (24.2-36.6) Sec. Sodium (137-145) mmol/L Potassium (3.6-5.0) mmol/L Chloride (98-107) mmol/L Carbon Dioxide (22-30) mmol/L Anion Gap mmol/L BUN (9-20) mg/dL Creatinine (0.8-1.5) mg/dL Estimated GFR ml/min BUN/Creatinine Ratio % Glucose (75-100) mg/dL Calcium (8.4-10.2) mg/dL Magnesium 1.70 (1.7-2.3) mg/dL Troponin T 0.099 H (0.00-0.029) ng/mL NT-Pro-B Natriuret Pep 2103 H (0-450) pg/mL Triglycerides (2-149) mg/dL Cholesterol (50-199) mg/dL LDL Cholesterol Direct (50-130) mg/dL HDL Cholesterol (40-59) mg/dL Cholesterol/HDL Ratio % - EKG Data -: EKG Interpreted by Ca EKG shows normal: sinus rhythm, axis (qrs 10), QRS complexes (qrsd 124), ST-T waves (frequent PVCs) Rate: normal (97) - EKG Data When compared to previous EKG there are: no significant change - Radiology Data Radiology results: report reviewed AP CHEST: HISTORY: Short of breath Moderate cardiomegaly and single-lead pacemaker device are unchanged since 03/01/18. Mild pulmonary venous congestion has developed. Small right pleural effusion is suspected. No evidence for pneumonia or pneumothorax. IMPRESSION: CHF. 04/14/18 13:51 - Radiology Dept. Note by ENRIQUE GU [facility] Num: [id number] : 1985 Patient Age: 32 VASCULAR LAB.PRELIMINARY REPORT.BLE VENOUS DUPLEX DONE. TECHNICALLY LIMITED AND DIFFICULT STUDY DUE TO HABITUS. NO EVIDENCE OF ACUTE DVT/SVT. CHRONIC, RECANALIZED DVT IN THE RT.POPLITEAL VEIN. Initialized on 04/14/18 13:51 - END OF NOTE - Medical Decision Making Patient exceeds weight limit of CT machine. Bilateral Dopplers do not show an acute DVT. Once again chronic DVT noted on the right extremity. Clinically patient's pain is reproducible. Patient also received Dilaudid for chronic leg pain. Chest x-ray shows worsening CHF. Lasix provided. Patient be admitted for further workup and treatment by a hospital as per cardiology has been consulted. - Differential Diagnosis PE, chest wall pain, costochondritis, PR, CHF Critical Care Time: No Critical care attestation.: If time is entered above; I have spent that time in minutes in the direct care of this critically ill patient, excluding procedure time. ED Disposition Clinical Impression: CHF exacerbation, Elevated troponin, Morbid obesity, History of DVT (deep vein thrombosis) Chest pain Qualifiers: Chest pain type: unspecified Qualified Code(s): R07.9 - Chest pain, unspecified Disposition: OP ADMIT IP TO THIS HOSP Is pt being admited?: Yes Condition: Stable Instructions: Chest Pain (ED) Time of Disposition: 16:43 (dr Marino/hosp)
[2018-04-14 13:46] LABS: Chol/HDL Ratio 2.57 %; HDL Cholesterol 49 mg/dL (40-59); LDL Cholesterol,Direct 56 mg/dL (50-130)
[2018-04-14] MEDS ORDERED: LASIX IV ONE (13:59)
--- NOTE | 2018-04-14 14:21 | Consultation ---
History of Present Illness Consult date: 04/14/18 Requesting physician: FABIANA OLIVIA Consult reason: chest pain, known to you History of present illness: The pt is a 32 YO male with a past medical history significant for chronic systolic heart failure, dilated NICMP, AICD in situ, frequent PVCs and NSVT, HTN , DM, chronic RLE DVT,, morbid obesity, lymphedema. He has been seen by our practice on prior hospitalizations and follows at [facility]. He presented with c/o chest pain, SOB and RLE pain that started after exercising today. Patient states he typically walks 1.5 miles daily. He states that he recently was initiated on isosorbide and took his first dose today. He is concerned that perhaps his symptoms are secondary to initiation of this new medications. He describes his chest pain as a constant left-sided aching pain around his left clavicle that radiates up into the left side of his neck and which is reproducible with palpation of the left clavicle. He denies any n/v, diaphoresis, dizziness or syncope. Pt underwent LHC and RHC at [facility] on 10/24/2017 which showed angiographically normal coronary arteries, normal right-sided filling pressures with a mean RA pressure of 5 mmHg, mildly elevated pulmonary artery pressures with a mean PA pressure of 27 mmHg and PA pressure was 38/16mmHG, mildly elevated left-sided filling pressures with a mean PCWP of 18 mmHg with a directly measured LVEDP of 20 mmHg, normal cardiac output with a CO of 5.74 L/min with a cardiac index of 1.82 L/min/m2 using a the Albaro equation. Echo done in 02/18/2018 at [place] showed EF 10-15%, LV severely dilated, LA severely dilated, mod TR, grade 2 diastolic dysfunction, mod MR, mod reduced RV systolic function, RVSP 25.2mmHg. Past History Past Medical History: diabetes, DVT (chronic RLE DVT), heart failure, hypertension, other (AICD) Past Surgical History: Other (AICD) Social history: denies: smoking, alcohol abuse, prescription drug abuse Medications and Allergies Allergies Allergy/AdvReac Type Severity Reaction Status Date / Time prochlorperazine Allergy Hives Verified 04/14/18 12:13 [From Compazine] Home Medications Medication Instructions Recorded Confirmed Last Taken Type Metformin HCl 1,000 mg PO BID 10/18/17 03/01/18 03/01/18 10:00 History Losartan [Cozaar] 25 mg PO QDAY 11/17/17 03/01/18 03/01/18 10:00 History Torsemide [Demadex] 40 mg PO BID 11/17/17 03/01/18 03/01/18 10:00 History Aspirin [Aspir-Low] 81 mg PO DAILY 02/08/18 03/01/18 03/01/18 10:00 History Oxycodone HCl/Acetaminophen 10 mg PO Q6HR PRN 02/08/18 03/01/18 2 Days Ago History [Percocet 10/325 mg] ~02/27/18 Spironolactone [Aldactone] 25 mg PO QDAY 02/08/18 03/01/18 03/01/18 10:00 History AtorvaSTATin [Lipitor] 40 mg PO QHS #30 tab 02/09/18 03/01/18 1 Day Ago Rx ~02/28/18 Review of Systems Constitutional: no weight loss, no weight gain, no fever, no chills, no sweats Ears, nose, mouth and throat: no ear pain, no nose pain, no sinus pressure, no sinus pain Cardiovascular: chest pain, orthopnea (chronic ), shortness of breath, dyspnea on exertion, high blood pressure, no palpitations, no rapid/irregular heart beat , no edema, no syncope, no lightheadedness Respiratory: shortness of breath, dyspnea on exertion, no cough, no congestion, no wheezing, no pain on inspiration Gastrointestinal: no abdominal pain, no nausea, no vomiting, no diarrhea, no constipation, no change in bowel habits Genitourinary Male: no dysuria, no hematuria, no flank pain, no discharge, no urinary frequency, no urinary hesitancy Musculoskeletal: other (RLE aching pain ), no neck stiffness, no neck pain, no shooting arm pain, no arm numbness/tingling, no low back pain, no shooting leg pain, no leg numbness/tingling, no redness of joints, no hot joints, no morning stiffness, no muscle weakness Integumentary: no rash, no pruritis, no redness, no sores, no wounds Neurological: no head injury, no paralysis, no weakness, no parathesias, no numbness, no tingling, no seizures, no syncope Psychiatric: no anxiety Endocrine: no cold intolerance, no heat intolerance Hematologic/Lymphatic: no easy bruising, no easy bleeding Allergic/Immunologic: no urticaria, no wheezing Physical Examination Vital Signs Pulse Ox 79 L 04/14/18 08:36 General appearance: no acute distress HEENT: Positive: PERRL, Normocephaly, Mucus Membranes Moist Neck: Positive: neck supple, trachea midline Cardiac: Positive: Reg Rate and Rhythm, S1/S2 Lungs: Positive: Decreased Breath Sounds Neuro: Positive: Grossly Intact Abdomen: Positive: Soft Skin: Negative: Rash Musculoskeletal: Normal Range of Motion Extremities: Present: +1 Edema (RLE > LLE ) Results 04/14/18 12:40 04/14/18 12:40 Coagulation 04/14/18 Range/Units 12:40 PT 16.4 H (12.2-14.9) Sec. INR 1.25 H (0.87-1.13) APTT 31.9 (24.2-36.6) Sec. Lipids 04/14/18 Range/Units 12:40 Triglycerides 137 (2-149) mg/dL Cholesterol 126 (50-199) mg/dL HDL Cholesterol 49 (40-59) mg/dL Cholesterol/HDL Ratio 2.57 % CBC 04/14/18 Range/Units 12:40 WBC 7.4 (4.5-11.0) K/mm3 RBC 5.01 (3.65-5.03) M/mm3 Hgb 11.5 L (11.8-15.2) gm/dl Hct 36.8 (35.5-45.6) % Plt Count 262 (140-440) K/mm3 Lymph # 1.6 (1.2-5.4) K/mm3 [place] # 0.7 (0.0-0.8) K/mm3 Eos # 0.1 (0.0-0.4) K/mm3 Baso # 0.1 (0.0-0.1) K/mm3 Comprehensive Metabolic Panel 04/14/18 Range/Units 12:40 Sodium 134 L (137-145) mmol/L Potassium 3.8 (3.6-5.0) mmol/L Chloride 101.8 (98-107) mmol/L Carbon Dioxide 20 L (22-30) mmol/L BUN 23 H (9-20) mg/dL Creatinine 1.4 (0.8-1.5) mg/dL Glucose 165 H (75-100) mg/dL Calcium 8.8 (8.4-10.2) mg/dL - Imaging and Cardiology Echo: report reviewed (02/18/2018 at [facility] showed EF 10-15%, LV severely dilated, LA severely dilated, mod TR, grade 2 diastolic dysfunction, mod MR, mod reduced RV systolic function, RVSP 25.2mmHg. ) Cardiac cath: report reviewed ( LHC and RHC at [facility] on 10/24/2017 which showed angiographically normal coronary arteries, normal right-sided filling pressures with a mean RA pressure of 5 mmHg, mildly elevated pulmonary artery pressures with a mean PA pressure of 27 mmHg and PA pressure was 38/16mmHG, mildly elevated left-sided filling pressures with a mean PCWP of 18 mmHg with a directly measured LVEDP of 20 mmHg, normal cardiac output with a CO of 5.74 L/ min with a cardiac index of 1.82 L/min/m2 using a the Albaro equation.) EKG: report reviewed, image reviewed EKG interpretations - Telemetry EKG Rhythm: Sinus Rhythm - EKG Sinus rhythms and dysrhythmias: sinus rhythm AV and intraventricular conduction: left bundle branch block Assessment and Plan Assessment: Acute on chronic systolic heart failure Chest pain, atypical Dilated NICMP - EF 10-15% AICD in situ Minimally elevated troponins - ECG with no acute ischemic changes Frequent PVCs and NSVT LBBB RLE pain / chronic RLE DVT Medical noncompliance HTN DM Morbid obesity - pt considering gastric bypass surgery Lymphedema Plan: Resume home cardiac regimen. Initiate scheduled IV bumex. No plans for repeat ischemic evaluation at this time given atypical nature of chest pain, ECG with no acute ischemic changes and recent LHC on 10/24/2017 which showed angiographically normal coronary arteries. Assessment and plan reviewed with pt at bedside. The patient has been seen in conjunction with Dr. Marquez who agrees with the assessment and plan of care.
[2018-04-14] MEDS ORDERED: PERCOCET 5/325 PO ONE (14:51)
--- NOTE | 2018-04-14 17:03 | History and Physical Report ---
History of Present Illness Chief complaint: My chest hurts History of present illness: 32 YO Male with MO, Systolic CHF(EF 15%), HTN, DM, NSVT, Chronic RLE DVT Not currently on Anticoagulation as per Vascular physician as per patient, Lymphedema presents to ED for evaluation. Pt states that he has experienced pain in his chest that began suddenly after walking. Pt states that he normally walks 1.5 miles, but was only able to walk 400yards due to chest pain. Pt states that pain is 9/10, Constant, worse with movement, and inspiration, , stabbing, radiates to the left jaw/neck, and arm, associated with shortness of breath, decreased exercise tolerance. Pt also acknowledges weight gain over the past 3-5 days, as well as Right leg pain. Pt denies fever, chills, palpitations , hemoptysis, BRBPR, unintentional weight loss, night sweats, trauma, or recent ill contacts. Pt seen and evaluated in ED and found to have symptoms consistent with ACS and Systolic CHF Decompensation. Pt admitted to telemetry. Cardiology consulted in ED. Past History Past Medical History: diabetes, DVT (chronic RLE DVT), heart failure, hypertension, other (AICD) Past Surgical History: Other (AICD) Social history: single. denies: smoking, alcohol abuse, prescription drug abuse Family history: diabetes, hypertension Medications and Allergies Allergies Allergy/AdvReac Type Severity Reaction Status Date / Time prochlorperazine Allergy Hives Verified 04/14/18 12:13 [From Compazine] Home Medications Medication Instructions Recorded Confirmed Last Taken Type Metformin HCl 1,000 mg PO BID 10/18/17 04/14/18 03/01/18 10:00 History Torsemide [Demadex] 40 mg PO BID 11/17/17 04/14/18 03/01/18 10:00 History Aspirin [Aspir-Low] 81 mg PO DAILY 02/08/18 04/14/18 03/01/18 10:00 History Oxycodone HCl/Acetaminophen 10 mg PO Q6HR PRN 02/08/18 04/14/18 2 Days Ago History [Percocet 10/325 mg] ~02/27/18 Spironolactone [Aldactone] 25 mg PO QDAY 07/29/18 10/02/18 08/19/18 10:00 History AtorvaSTATin [Lipitor] 40 mg PO QHS #30 tab 02/09/18 04/14/18 1 Day Ago Rx ~02/28/18 Carvedilol [Coreg] 12.5 mg PO BID 04/14/18 04/14/18 Unknown History Active Meds: Active Medications Bumetanide (Bumex) 1 mg IV BID CODY Review of Systems Constitutional: weight gain, no weight loss, no fever, no chills, no sweats Ears, nose, mouth and throat: no ear pain, no ear discharge, no tinnitis, no decreased hearing, no nose pain, no nasal congestion, no nasal discharge Cardiovascular: chest pain, palpitations, dyspnea on exertion, decreased exercise tolerance Respiratory: no cough, no cough with sputum, no excessive sputum, no hemoptysis Gastrointestinal: no nausea, no vomiting, no diarrhea, no constipation Genitourinary Male: no hematuria, no flank pain, no discharge, no urinary frequency, no urinary hesitancy Rectal: no pain, no incontinence, no bleeding, no itching, no hemorrhoids, no discharge Musculoskeletal: no neck stiffness, no neck pain, no shooting arm pain, no arm numbness/tingling, no low back pain, no shooting leg pain, no leg numbness/ tingling Integumentary: no rash, no pruritis, no redness, no sores, no wounds, no jaundice Neurological: no head injury, no transient paralysis, no paralysis, no weakness , no parathesias, no numbness, no tingling, no seizures, no syncope, no tremors Psychiatric: no anxiety, no memory loss, no change in sleep habits, no sleep disturbances, no insomnia, no hypersomnia, no change in appetite, no change in libido, no suicidal ideation Endocrine: no cold intolerance, no heat intolerance, no polyphagia, no excessive thirst, no polydipsia, no polyuria, no nocturia, no excessive sweating , no flushing Hematologic/Lymphatic: lymphedema, no easy bruising, no easy bleeding, no lymphadenopathy Allergic/Immunologic: no urticaria, no allergic rhinitis, no wheezing, no persistent infections, no anaphylaxis, no angioedema Exam - Constitutional Vitals: Temp Pulse Resp BP Pulse Ox 98.5 F 87 25 H 142/87 97 04/14/18 12:14 04/14/18 16:46 04/14/18 16:46 04/14/18 16:46 04/14/18 16:46 General appearance: Present: mild distress, obese - EENT Eyes: Present: PERRL ENT: hearing intact, clear oral mucosa - Neck Neck: Present: supple, normal ROM - Respiratory Respiratory effort: normal Respiratory: bilateral: CTA - Cardiovascular Heart Sounds: Present: S1 & S2. Absent: rub, click - Extremities Extremities: pulses symmetrical, No edema Extremity abnormal: edema Peripheral Pulses: within normal limits - Abdominal General gastrointestinal: Present: soft, non-tender, non-distended, normal bowel sounds Male genitourinary: Present: normal - Integumentary Integumentary: Present: clear, warm, dry - Musculoskeletal Musculoskeletal: gait normal, strength equal bilaterally - Psychiatric Psychiatric: appropriate mood/affect, intact judgment & insight - Neurologic Neurologic: CNII-XII intact, moves all extremities Results - Labs CBC & Chem 7: 04/14/18 12:40 04/14/18 12:40 Labs: Abnormal lab results 04/14/18 04/14/18 04/14/18 Range/Units 12:40 12:40 12:40 Hgb 11.5 L (11.8-15.2) gm/dl MCV 74 L (84-94) fl MCH 23 L (28-32) pg MCHC 31 L (32-34) % RDW 17.1 H (13.2-15.2) % Evans % (Auto) 9.3 H (0.0-7.3) % PT 16.4 H (12.2-14.9) Sec. INR 1.25 H (0.87-1.13) Sodium 134 L (137-145) mmol/L Carbon Dioxide 20 L (22-30) mmol/L BUN 23 H (9-20) mg/dL Glucose 165 H (75-100) mg/dL Troponin T 0.030 H (0.00-0.029) ng/mL NT-Pro-B Natriuret Pep (0-450) pg/mL 04/14/18 04/14/18 Range/Units 12:40 14:50 Hgb (11.8-15.2) gm/dl MCV (84-94) fl MCH (28-32) pg MCHC (32-34) % RDW (13.2-15.2) % Evans % (Auto) (0.0-7.3) % PT (12.2-14.9) Sec. INR (0.87-1.13) Sodium (137-145) mmol/L Carbon Dioxide (22-30) mmol/L BUN (9-20) mg/dL Glucose (75-100) mg/dL Troponin T 0.099 H (0.00-0.029) ng/mL NT-Pro-B Natriuret Pep 2103 H (0-450) pg/mL Assessment and Plan - Patient Problems (1) Acute combined systolic (congestive) and diastolic (congestive) heart failure Current Visit: No Status: Acute Plan to address problem: Admit to telemetry, cardiology consulted in ED, diuresis, supplemental oxygen, chest x ray, bnp, d dimer, strict I/O, monitor uop q shift, afterload reduction. review previous echo, further care as per cardiology team. (2) Morbid obesity Current Visit: Yes Status: Acute Plan to address problem: Balanced diet, increased physical activity at discharge (3) History of DVT (deep vein thrombosis) Current Visit: Yes Status: Chronic Plan to address problem: D dimer, currently not on anticoagulation. Ultrasound RLE, Pt is super mordidly obese with chronic BLE lymphedema, therapeutic lovenox, pharmacy consult for coumadin dosing, (4) Obesity hypoventilation syndrome Current Visit: No Status: Acute Plan to address problem: supplemental oxygen, pulse oximetry, NIPPV as clinically indicated, Chest x ray. (5) ACS (acute coronary syndrome) Current Visit: Yes Status: Acute Plan to address problem: Serial cardiac enzymes, ekg, telemetry, Ddimer, morphine, supplemental oxygen, nitro, aspirin, cardiology consulted in ED. (6) DVT prophylaxis Current Visit: Yes Status: Acute Plan to address problem: SCD to BLE while in bed.
[2018-04-14] MEDS ORDERED: NITROSTAT SL PRN (17:29)
[2018-04-14] MEDS ORDERED: SODIUM CHLORIDE FLUSH SYRINGE 10 ML IV PRN (17:29)
[2018-04-14] MEDS ORDERED: ZOFRAN IV PRN (17:29)
[2018-04-14] MEDS ORDERED: TYLENOL PO PRN (17:29)
[2018-04-14] MEDS: LASIX IV SCH (18:33)
[2018-04-14] MEDS ORDERED: ACETAMINOPHEN PO PRN (21:01)
[2018-04-14] MEDS ORDERED: OXYCODONE HCL PO PRN (21:01)
[2018-04-14] MEDS ORDERED: NON-FORMULARY (Torsemide [Demadex] 40 MG) PO SCH (22:00)
[2018-04-14] MEDS: COREG PO SCH (22:04)
[2018-04-14] MEDS: PERCOCET 5/325 PO PRN (22:07)
[2018-04-14] MEDS: ROXICODONE PO PRN (22:08)
[2018-04-14] MEDS: SODIUM CHLORIDE FLUSH SYRINGE 10 ML IV SCH (22:13)
[2018-04-14] MEDS: BUMEX IV SCH (23:08)
[2018-04-15] MEDS: PERCOCET 5/325 PO PRN ×4 (04:16→21:02)
[2018-04-15] MEDS: ROXICODONE PO PRN ×3 (04:17→15:44)
[2018-04-15] MEDS: LASIX IV SCH (06:08)
[2018-04-15] MEDS ORDERED: LOVENOX SUB-Q SCH (06:31)
[2018-04-15] MEDS: ALDACTONE PO SCH (09:56)
[2018-04-15] MEDS: HALFPRIN EC PO SCH (09:57)
[2018-04-15] MEDS: COREG PO SCH ×2 (09:57→22:47)
[2018-04-15] MEDS: SODIUM CHLORIDE FLUSH SYRINGE 10 ML IV SCH (10:01)
--- NOTE | 2018-04-15 10:33 | Progress Note ---
Assessment and Plan Assessment: Acute on chronic systolic heart failure Chest pain, atypical - nearly resolved Dilated NICMP - EF 10-15% AICD in situ Minimally elevated troponins - ECG with no acute ischemic changes Frequent PVCs and NSVT LBBB RLE pain / chronic RLE DVT Medical noncompliance HTN DM Morbid obesity - pt considering gastric bypass surgery Lymphedema Plan: Cont present cardiac regimen. Pt has been initiated on coumadin per primary. No current apparent indication for continuation of systemic anticoagulation in regards to chronic DVT. Will defer to primary. No plans for repeat ischemic evaluation at this time given atypical nature of chest pain, ECG with no acute ischemic changes and recent LHC on 10/24/2017 which showed angiographically normal coronary arteries. Possible d/c tomorrow. Assessment and plan reviewed with pt at bedside. The patient has been seen in conjunction with Dr. Marquez who agrees with the assessment and plan of care. Subjective Date of service: 04/15/18 Principal diagnosis: HF; cp Interval history: pt resting comfortably in bed, states SOB is improving and chest pain nearly resolved. Objective Last Vital Signs Temp 97.3 F L 04/15/18 08:32 Pulse 85 04/15/18 09:57 Resp 20 04/15/18 10:00 BP 135/79 04/15/18 09:57 Pulse Ox 94 04/15/18 05:34 - Physical Examination General: No Apparent Distress HEENT: Positive: PERRL, Normocephaly, Mucus Membranes Moist Neck: Positive: neck supple, trachea midline Cardiac: Positive: Reg Rate and Rhythm, S1/S2 Lungs: Positive: Decreased Breath Sounds Neuro: Positive: Grossly Intact Abdomen: Positive: Soft Skin: Negative: Rash Musculoskeletal: Normal Range of Motion Extremities: Present: +1 Edema (RLE > LLE ) - Labs and Meds Coagulation 04/14/18 Range/Units 12:40 PT 16.4 H (12.2-14.9) Sec. INR 1.25 H (0.87-1.13) APTT 31.9 (24.2-36.6) Sec. Lipids 04/14/18 Range/Units 12:40 Triglycerides 137 (2-149) mg/dL Cholesterol 126 (50-199) mg/dL HDL Cholesterol 49 (40-59) mg/dL Cholesterol/HDL Ratio 2.57 % CBC 04/14/18 Range/Units 12:40 WBC 7.4 (4.5-11.0) K/mm3 RBC 5.01 (3.65-5.03) M/mm3 Hgb 11.5 L (11.8-15.2) gm/dl Hct 36.8 (35.5-45.6) % Plt Count 262 (140-440) K/mm3 Lymph # 1.6 (1.2-5.4) K/mm3 [place] # 0.7 (0.0-0.8) K/mm3 Eos # 0.1 (0.0-0.4) K/mm3 Baso # 0.1 (0.0-0.1) K/mm3 Comprehensive Metabolic Panel 04/14/18 Range/Units 12:40 Sodium 134 L (137-145) mmol/L Potassium 3.8 (3.6-5.0) mmol/L Chloride 101.8 (98-107) mmol/L Carbon Dioxide 20 L (22-30) mmol/L BUN 23 H (9-20) mg/dL Creatinine 1.4 (0.8-1.5) mg/dL Glucose 165 H (75-100) mg/dL Calcium 8.8 (8.4-10.2) mg/dL - Imaging and Cardiology EKG: report reviewed, image reviewed Echo: report reviewed (02/18/2018 at [place] [facility] showed EF 10-15%, LV severely dilated, LA severely dilated, mod TR, grade 2 diastolic dysfunction, mod MR, mod reduced RV systolic function, RVSP 25.2mmHg. ) Cardiac cath: report reviewed ( C and RHC at [place] on 10/24/2017 which showed angiographically normal coronary arteries, normal right-sided filling pressures with a mean RA pressure of 5 mmHg, mildly elevated pulmonary artery pressures with a mean PA pressure of 27 mmHg and PA pressure was 38/16mmHG, mildly elevated left-sided filling pressures with a mean PCWP of 18 mmHg with a directly measured LVEDP of 20 mmHg, normal cardiac output with a CO of 5.74 L/ min with a cardiac index of 1.82 L/min/m2 using a the Albaro equation.) - Telemetry EKG Rhythm: Sinus Rhythm - EKG Sinus rhythms and dysrhythmias: sinus rhythm AV and intraventricular conduction: left bundle branch block
--- NOTE | 2018-04-15 11:08 | Progress Note ---
Assessment and Plan Assessment and plan: My chest hurts History of present illness: 32 YO Male with MO, Systolic CHF(EF 15%), HTN, DM, NSVT, Chronic RLE DVT Not currently on Anticoagulation as per Vascular physician as per patient, Lymphedema presents to ED for evaluation. Pt states that he has experienced pain in his chest that began suddenly after walking. Pt states that he normally walks 1.5 miles, but was only able to walk 400yards due to chest pain. Pt states that pain is 9/10, Constant, worse with movement, and inspiration, , stabbing, radiates to the left jaw/neck, and arm, associated with shortness of breath, decreased exercise tolerance. Pt also acknowledges weight gain over the past 3-5 days, as well as Right leg pain. Pt denies fever, chills, palpitations , hemoptysis, BRBPR, unintentional weight loss, night sweats, trauma, or recent ill contacts. Pt seen and evaluated in ED and found to have symptoms consistent with ACS and Systolic CHF Decompensation. Pt admitted to telemetry. Cardiology consulted in ED. Past History Past Medical History: diabetes, DVT (chronic RLE DVT), heart failure, hypertension, other (AICD) Chronic R LE dvt confirmed on US- restart warfarin; likely needs lifelong anticoagulation Acute combined systolic (congestive) and diastolic (congestive) heart failure continue diuresis, cardiology input appreciated Morbid obesity Balanced diet, increased physical activity at discharge Obesity hypoventilation syndrome supplemental oxygen, pulse oximetry, NIPPV as clinically indicated, Chest x ray. ACS (acute coronary syndrome) ruled out DVT prophylaxis SCD to BLE while in bed. History Interval history: Review of systems Constitutional: No fevers, no malaise, no joint pains CVS: No chest pain, co orthopnea, dyspnea on exertion, and pedal edema GI: No abdominal pain, no diarrhea, no vomiting, no constipation Respiratory: no wheezing, no coughing Hospitalist Physical - Physical exam Narrative exam: General.: Appears well, no distress, nontoxic HEENT: Moist mucous membranes, extraocular muscles intact, no lymphadenopathy Neck: supple Cardiac: S1-S2 heard Lungs: bibasilar crackles Abdomen: soft , nontender, nondistended, bowel sounds positive Extremities: bipedal edema Skin: no rash or lesions Neurologic: no gross focal deficits Psych: appropriate behavior, appropriate mood, corporative, judgment intact - Constitutional Vitals: Temp Pulse Resp BP Pulse Ox 97.3 F L 85 20 135/79 94 04/15/18 08:32 04/15/18 09:57 04/15/18 10:00 04/15/18 09:57 04/15/18 05:34 General appearance: Present: mild distress, obese Results - Labs CBC & Chem 7: 04/14/18 12:40 04/14/18 12:40 Labs: Laboratory Last Values WBC 7.4 K/mm3 (4.5-11.0) 04/14/18 12:40 RBC 5.01 M/mm3 (3.65-5.03) 04/14/18 12:40 Hgb 11.5 gm/dl (11.8-15.2) L 04/14/18 12:40 Hct 36.8 % (35.5-45.6) 04/14/18 12:40 MCV 74 fl (84-94) L 04/14/18 12:40 MCH 23 pg (28-32) L 04/14/18 12:40 MCHC 31 % (32-34) L 04/14/18 12:40 RDW 17.1 % (13.2-15.2) H 04/14/18 12:40 Plt Count 262 K/mm3 (140-440) 04/14/18 12:40 Lymph % (Auto) 21.2 % (13.4-35.0) 04/14/18 12:40 [place] % (Auto) 9.3 % (0.0-7.3) H 04/14/18 12:40 Eos % (Auto) 1.4 % (0.0-4.3) 04/14/18 12:40 Baso % (Auto) 1.0 % (0.0-1.8) 04/14/18 12:40 Lymph # 1.6 K/mm3 (1.2-5.4) 04/14/18 12:40 [place] # 0.7 K/mm3 (0.0-0.8) 04/14/18 12:40 Eos # 0.1 K/mm3 (0.0-0.4) 04/14/18 12:40 Baso # 0.1 K/mm3 (0.0-0.1) 04/14/18 12:40 Seg Neutrophils % 67.1 % (40.0-70.0) 04/14/18 12:40 Seg Neutrophils # 4.9 K/mm3 (1.8-7.7) 04/14/18 12:40 PT 16.4 Sec. (12.2-14.9) H 04/14/18 12:40 INR 1.25 (0.87-1.13) H 04/14/18 12:40 APTT 31.9 Sec. (24.2-36.6) 04/14/18 12:40 D-Dimer 1501.31 ng/mlDDU (0-234) H 04/14/18 21:39 Sodium 134 mmol/L (137-145) L 04/14/18 12:40 Potassium 3.8 mmol/L (3.6-5.0) 04/14/18 12:40 Chloride 101.8 mmol/L (98-107) 04/14/18 12:40 Carbon Dioxide 20 mmol/L (22-30) L 04/14/18 12:40 Anion Gap 16 mmol/L 04/14/18 12:40 BUN 23 mg/dL (9-20) H 04/14/18 12:40 Creatinine 1.4 mg/dL (0.8-1.5) 04/14/18 12:40 Estimated GFR > 60 ml/min 04/14/18 12:40 BUN/Creatinine Ratio 16 % 04/14/18 12:40 Glucose 165 mg/dL (75-100) H 04/14/18 12:40 POC Glucose 134 (70-105) H 04/15/18 05:36 Calcium 8.8 mg/dL (8.4-10.2) 04/14/18 12:40 Magnesium 1.70 mg/dL (1.7-2.3) 04/14/18 12:40 Troponin T 0.092 ng/mL (0.00-0.029) H 04/14/18 21:01 NT-Pro-B Natriuret Pep 2103 pg/mL (0-450) H 04/14/18 12:40 Triglycerides 137 mg/dL (2-149) 04/14/18 12:40 Cholesterol 126 mg/dL (50-199) 04/14/18 12:40 LDL Cholesterol Direct 56 mg/dL (50-130) 04/14/18 12:40 HDL Cholesterol 49 mg/dL (40-59) 04/14/18 12:40 Cholesterol/HDL Ratio 2.57 % 04/14/18 12:40
[2018-04-15] MEDS: LOVENOX SUB-Q SCH ×4 (13:40→22:48)
[2018-04-15] MEDS: BUMEX IV SCH (13:41)
--- NOTE | 2018-04-15 14:35 | Vascular Lab Report ---
LOWER EXTREMITY VENOUS DUPLEX: REASON FOR EXAM: Right calf pain. COMMENTS ON THE RIGHT: Partially occluding chronic thrombus is seen in the popliteal vein. This was seen on 3 previous studies dated March 02, 2018, January 22, 2018, and November 18, 2017. The remaining veins visualized are freely compressible without evidence of internal echogenicity. Spontaneous and phasic flow is present proximally. COMMENTS ON THE LEFT: All veins visualized are freely compressible without evidence of internal echogenicity. Flow is spontaneous and phasic throughout. 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 No evidence of acute deep venous thrombosis in the left lower extremity.
[2018-04-15] MEDS: COUMADIN PO SCH (19:00)
[2018-04-16] MEDS: BUMEX IV SCH ×3 (00:11→22:52)
[2018-04-16] MEDS: ROXICODONE PO PRN ×4 (02:50→20:58)
[2018-04-16] MEDS: PERCOCET 5/325 PO PRN ×4 (02:50→20:57)
[2018-04-16 06:12] LABS: BUN/Creatinine Ratio 16; Blood Urea Nitrogen 19 mg/dL (9-20); Calcium 8.8 mg/dL (8.4-10.2); Hemolysis Index 284; INR 1.11 (0.87-1.13)
[2018-04-16] MEDS: HALFPRIN EC PO SCH (09:13)
[2018-04-16] MEDS: ALDACTONE PO SCH (09:14)
[2018-04-16] MEDS: LOVENOX SUB-Q SCH ×4 (09:14→22:28)
--- NOTE | 2018-04-16 09:32 | Progress Note ---
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 Increase Bumex to 2mg IV BID and monitor renal indices. Encourage increased activity and ambulation. Pt has been initiated on coumadin per primary. No current apparent indication for continuation of systemic anticoagulation in regards to chronic DVT. Will defer to primary. Assessment and plan reviewed with pt at bedside. The patient has been seen in conjunction with Dr. Marquez who agrees with the assessment and plan of care. Subjective Date of service: 04/16/18 Principal diagnosis: HF; cp Interval history: pt resting comfortably in bed, still with c/o SOB, states chest pain has resolved. Objective Last Vital Signs Temp 97.7 F 04/16/18 05:30 Pulse 77 04/16/18 05:30 Resp 16 04/16/18 05:30 BP 99/65 04/16/18 05:30 Pulse Ox 98 04/16/18 05:30 - Physical Examination General: No Apparent Distress HEENT: Positive: PERRL, Normocephaly, Mucus Membranes Moist Neck: Positive: neck supple, trachea midline Cardiac: Positive: Reg Rate and Rhythm, S1/S2 Lungs: Positive: Decreased Breath Sounds Neuro: Positive: Grossly Intact Abdomen: Positive: Soft Skin: Negative: Rash Musculoskeletal: Normal Range of Motion Extremities: Present: +1 Edema (RLE > LLE ) - Labs and Meds Coagulation 04/16/18 Range/Units 05:21 PT 14.9 (12.2-14.9) Sec. INR 1.11 (0.87-1.13) Comprehensive Metabolic Panel 04/16/18 Range/Units 05:21 Sodium 130 L (137-145) mmol/L Potassium TNR Chloride 96.9 L (98-107) mmol/L Carbon Dioxide 24 (22-30) mmol/L BUN 19 (9-20) mg/dL Creatinine 1.2 (0.8-1.5) mg/dL Glucose 118 H (75-100) mg/dL Calcium 8.8 (8.4-10.2) mg/dL - Imaging and Cardiology EKG: report reviewed, image reviewed Echo: report reviewed (02/18/2018 at [facility] showed EF 10-15%, LV severely dilated, LA severely dilated, mod TR, grade 2 diastolic dysfunction, mod MR, mod reduced RV systolic function, RVSP 25.2mmHg. ) Cardiac cath: report reviewed ( [facility] and [facility] at [place] on 10/24/2017 which showed angiographically normal coronary arteries, normal right-sided filling pressures with a mean RA pressure of 5 mmHg, mildly elevated pulmonary artery pressures with a mean PA pressure of 27 mmHg and PA pressure was 38/16mmHG, mildly elevated left-sided filling pressures with a mean PCWP of 18 mmHg with a directly measured LVEDP of 20 mmHg, normal cardiac output with a CO of 5.74 L/ min with a cardiac index of 1.82 L/min/m2 using a the Albaro equation.) - EKG Sinus rhythms and dysrhythmias: sinus rhythm AV and intraventricular conduction: left bundle branch block
[2018-04-16] MEDS: COREG PO SCH ×2 (10:00→22:28)
[2018-04-16] MEDS: SODIUM CHLORIDE FLUSH SYRINGE 10 ML IV SCH ×3 (11:50→22:52)
--- NOTE | 2018-04-16 16:16 | Progress Note ---
Hospitalist Physical - Constitutional Vitals: Temp Pulse Resp BP Pulse Ox 98.1 F 83 22 114/87 95 04/16/18 11:57 04/16/18 11:57 04/16/18 11:57 04/16/18 11:57 04/16/18 11:57 General appearance: Present: mild distress, obese Results - Labs CBC & Chem 7: 04/14/18 12:40 04/16/18 05:21 Labs: Laboratory Last Values WBC 7.4 K/mm3 (4.5-11.0) 04/14/18 12:40 RBC 5.01 M/mm3 (3.65-5.03) 04/14/18 12:40 Hgb 11.5 gm/dl (11.8-15.2) L 04/14/18 12:40 Hct 36.8 % (35.5-45.6) 04/14/18 12:40 MCV 74 fl (84-94) L 04/14/18 12:40 MCH 23 pg (28-32) L 04/14/18 12:40 MCHC 31 % (32-34) L 04/14/18 12:40 RDW 17.1 % (13.2-15.2) H 04/14/18 12:40 Plt Count 262 K/mm3 (140-440) 04/14/18 12:40 Lymph % (Auto) 21.2 % (13.4-35.0) 04/14/18 12:40 [place] % (Auto) 9.3 % (0.0-7.3) H 04/14/18 12:40 Eos % (Auto) 1.4 % (0.0-4.3) 04/14/18 12:40 Baso % (Auto) 1.0 % (0.0-1.8) 04/14/18 12:40 Lymph # 1.6 K/mm3 (1.2-5.4) 04/14/18 12:40 [place] # 0.7 K/mm3 (0.0-0.8) 04/14/18 12:40 Eos # 0.1 K/mm3 (0.0-0.4) 04/14/18 12:40 Baso # 0.1 K/mm3 (0.0-0.1) 04/14/18 12:40 Seg Neutrophils % 67.1 % (40.0-70.0) 04/14/18 12:40 Seg Neutrophils # 4.9 K/mm3 (1.8-7.7) 04/14/18 12:40 PT 14.9 Sec. (12.2-14.9) 04/16/18 05:21 INR 1.11 (0.87-1.13) 04/16/18 05:21 APTT 31.9 Sec. (24.2-36.6) 04/14/18 12:40 D-Dimer 1501.31 ng/mlDDU (0-234) H 04/14/18 21:39 Sodium 130 mmol/L (137-145) L 04/16/18 05:21 Potassium TNR 04/16/18 05:21 Chloride 96.9 mmol/L (98-107) L 04/16/18 05:21 Carbon Dioxide 24 mmol/L (22-30) 04/16/18 05:21 Anion Gap 16 mmol/L 04/16/18 05:21 BUN 19 mg/dL (9-20) 04/16/18 05:21 Creatinine 1.2 mg/dL (0.8-1.5) 04/16/18 05:21 Estimated GFR > 60 ml/min 04/16/18 05:21 BUN/Creatinine Ratio 16 % 04/16/18 05:21 Glucose 118 mg/dL (75-100) H 04/16/18 05:21 POC Glucose 144 (70-105) H 04/15/18 22:32 Calcium 8.8 mg/dL (8.4-10.2) 04/16/18 05:21 Magnesium 1.70 mg/dL (1.7-2.3) 04/14/18 12:40 Troponin T 0.092 ng/mL (0.00-0.029) H 04/14/18 21:01 NT-Pro-B Natriuret Pep 2103 pg/mL (0-450) H 04/14/18 12:40 Triglycerides 137 mg/dL (2-149) 04/14/18 12:40 Cholesterol 126 mg/dL (50-199) 04/14/18 12:40 LDL Cholesterol Direct 56 mg/dL (50-130) 04/14/18 12:40 HDL Cholesterol 49 mg/dL (40-59) 04/14/18 12:40 Cholesterol/HDL Ratio 2.57 % 04/14/18 12:40
[2018-04-16] MEDS: COUMADIN PO SCH (17:42)
[2018-04-17] MEDS: ROXICODONE PO PRN ×2 (04:01→10:07)
[2018-04-17] MEDS: PERCOCET 5/325 PO PRN ×2 (04:02→10:07)
[2018-04-17 06:22] LABS: INR 1.08 (0.87-1.13)
[2018-04-17 06:55] LABS: BUN/Creatinine Ratio 16; Blood Urea Nitrogen 19 mg/dL (9-20); Calcium 9.2 mg/dL (8.4-10.2); Hemolysis Index 4
--- NOTE | 2018-04-17 10:13 | Progress Note ---
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 Pt appears to be nearing/at euvolemia. Pt may discharge home from cardiology standpoint. At discharge, recommend resuming home torsemide. Recommend follow up with [facility] special education tutor, , within 3-5 days of hospital discharge. Pt verbalizes understanding. Pt has been initiated on coumadin per primary. No current apparent indication for continuation of systemic anticoagulation in regards to chronic DVT. Will defer to primary. Assessment and plan reviewed with pt at bedside. The patient has been seen in conjunction with Dr. Marquez who agrees with the assessment and plan of care. Subjective Date of service: 04/17/18 Principal diagnosis: HF; cp Interval history: pt resting comfortably in bed, states his breathing is "perfect" today, states chest pain has resolved. Objective Last Vital Signs Temp 98.3 F 04/17/18 05:59 Pulse 73 04/17/18 05:59 Resp 18 04/17/18 05:59 BP 112/74 04/17/18 05:59 Pulse Ox 98 04/17/18 05:59 - Physical Examination General: No Apparent Distress HEENT: Positive: PERRL, Normocephaly, Mucus Membranes Moist Neck: Positive: neck supple, trachea midline Cardiac: Positive: Reg Rate and Rhythm, S1/S2 Lungs: Positive: Decreased Breath Sounds Neuro: Positive: Grossly Intact Abdomen: Positive: Soft Skin: Negative: Rash Musculoskeletal: Normal Range of Motion Extremities: Present: +1 Edema (RLE > LLE ) - Labs and Meds Coagulation 04/17/18 Range/Units 05:49 PT 14.5 (12.2-14.9) Sec. INR 1.08 (0.87-1.13) Comprehensive Metabolic Panel 04/17/18 Range/Units 05:49 Sodium 136 L (137-145) mmol/L Potassium 4.3 (3.6-5.0) mmol/L Chloride 98.3 (98-107) mmol/L Carbon Dioxide 26 (22-30) mmol/L BUN 19 (9-20) mg/dL Creatinine 1.2 (0.8-1.5) mg/dL Glucose 134 H (75-100) mg/dL Calcium 9.2 (8.4-10.2) mg/dL - Imaging and Cardiology EKG: report reviewed, image reviewed Echo: report reviewed (02/18/2018 at [facility] showed EF 10-15%, LV severely dilated, LA severely dilated, mod TR, grade 2 diastolic dysfunction, mod MR, mod reduced RV systolic function, RVSP 25.2mmHg. ) Cardiac cath: report reviewed ( [facility] at [place] on 10/24/2017 which showed angiographically normal coronary arteries, normal right-sided filling pressures with a mean RA pressure of 5 mmHg, mildly elevated pulmonary artery pressures with a mean PA pressure of 27 mmHg and PA pressure was 38/16mmHG, mildly elevated left-sided filling pressures with a mean PCWP of 18 mmHg with a directly measured LVEDP of 20 mmHg, normal cardiac output with a CO of 5.74 L/ min with a cardiac index of 1.82 L/min/m2 using a the Albaro equation.) - EKG Sinus rhythms and dysrhythmias: sinus rhythm AV and intraventricular conduction: left bundle branch block
[2018-04-17] MEDS: LOVENOX SUB-Q SCH ×2 (10:16)
[2018-04-17] MEDS: COREG PO SCH (10:17)
[2018-04-17] MEDS: HALFPRIN EC PO SCH (10:17)
[2018-04-17] MEDS: ALDACTONE PO SCH (10:17)
[2018-04-17] MEDS: SODIUM CHLORIDE FLUSH SYRINGE 10 ML IV SCH (10:18)
[2018-04-17] MEDS: BUMEX IV SCH (10:21)
--- NOTE | 2018-04-17 12:29 | Discharge Summary ---
Providers - Providers Date of Admission: 04/14/18 17:29 Attending physician: SAMREEN AARON MD 04/14/18 14:01 Consult to Physician [CONS] Urgent Comment: ISI NOTIFIED Consulting Provider: MARCIE MEYER Physician Instructions: Reason For Exam: chf exacerbation, chest pain Primary care physician: KIN ONTIVEROS MD Hospitalization Condition: Stable Disposition: DC-30 STILL A PATIENT Exam - Constitutional Vitals: Temp Pulse Resp BP Pulse Ox 98.3 F 80 18 115/86 98 04/17/18 05:59 04/17/18 10:17 04/17/18 05:59 04/17/18 10:17 04/17/18 05:59 Plan Follow up with: PRIMARY CAREMD [Primary Care Provider] - 7 Days Forms: Warfarin Discharge Instruction Prescriptions: Oxycodone HCl/Acetaminophen [Percocet 10/325 mg] 10 mg PO Q6HR PRN #14 tablet PRN Reason: Pain Spironolactone [Aldactone] 25 mg PO QDAY #30 tablet Torsemide [Demadex] 40 mg PO BID #120 tablet
[2018-04-17 12:37] VITALS: BP 113/70
--- NOTE | 2018-04-17 15:46 | Query- Dyspnea ---
Jose Antonio Navarrete Fredyuimary Date:____04/17/18 Audio Visual Manager/CDS:____soumya/brandy Phone#:____[phone] Exercise your independent professional judgment when responding to query. Questions asked do not imply a particular answer is desired or expected. We greatly appreciate your clarification on this issue. Clinical Documentation States: 2 YO Male with MO, Systolic CHF(EF 15%), HTN, DM, NSVT, Chronic RLE DVT Not currently on Anticoagulation as per Vascular physician as per patient, Lymphedema presents to ED for evaluation. Pt states that he has experienced pain in his chest that began suddenly after walking. Pt states that he normally walks 1.5 miles, but was only able to walk 400yards due to chest pain. Pt states that pain is 9/10, Constant, worse with movement, and inspiration, , stabbing, radiates to the left jaw/neck, and arm, associated with shortness of breath, decreased exercise tolerance. Assessment and plan: Acute combined systolic (congestive) and diastolic (congestive) heart failure Obesity hypoventilation syndrome Clinical Findings Show: 04/14/18 O2 Sat 73 O2 Flow 2L/min RR 38 Please clarify if the patient had any of the following conditions based on the above clinical findings: [ ] Respiratory Failure [x ] Acute [ ] Acute on Chronic [ ] Chronic [ ] Respiratory failure due to trauma [ ] Acute Respiratory Distress Syndrome [ ] Other: [ ] Unable to determine [ ] Comment/Explanation: Present on Admission: [ x] Yes (Y) [ ] Clinically undeterminable (W) [ ] No (N) Please also document response in your Progress Notes and/or Discharge Summary and indicate if the condition was present on admission. JOSE ALFREDO
== END 2018-04-17 15:40 | disposition home or self-care (01) | DRG 291 ==
LOC: ED 12:04 → 4A 17:29 → 3A 04-15 19:57
PROVIDERS: ADMIT Internal Medicine; ATTEND Internal Medicine
DX: I11.0 Hypertensive heart disease with heart failure (principal); J96.00 Acute respiratory failure, unspecified whether with hypoxia or hypercapnia; Z68.44 Body mass index [BMI] 60.0-69.9, adult; E87.1 Hypo-osmolality and hyponatremia; I47.1 Supraventricular tachycardia; I82.531 Chronic embolism and thrombosis of right popliteal vein; E66.2 Morbid (severe) obesity with alveolar hypoventilation; I50.43 Acute on chronic combined systolic (congestive) and diastolic (congestive) heart failure; I42.0 Dilated cardiomyopathy; I49.3 Ventricular premature depolarization; I44.7 Left bundle-branch block, unspecified; E11.9 Type 2 diabetes mellitus without complications; I89.0 Lymphedema, not elsewhere classified; Z83.3 Family history of diabetes mellitus; Z95.810 Presence of automatic (implantable) cardiac defibrillator; Z91.14 Patient's other noncompliance with medication regimen; Z82.49 Family history of ischemic heart disease and other diseases of the circulatory system; Z79.899 Other long term (current) drug therapy; Z79.82 Long term (current) use of aspirin; I25.2 Old myocardial infarction
CPT/HCPCS: 36415; 71045; 80048; 80061; 82962; 83735; 83880; 84484; 85025; 85379; 85610; 85730; 93005; 93010; 93970; 96374; 96375; A9270-GY; J1170; J1650; J1940; J2405

== ENCOUNTER 2018-07-21 09:47 | Emergency (ER) | payer OTHER ==
[2018-07-21] MEDS ORDERED: CORDARONE IV ONE (10:06)
[2018-07-21] MEDS ORDERED: CORDARONE 150 MG in D5W 97 ML IV ONE (10:10)
[2018-07-21 10:20] LABS: Mean Corpuscular HGB Conc 30 % (32-34); Mean Corpuscular Volume 73 fl (84-94); Platelet Count 276 K/mm3 (140-440); Red Blood Count 5.15 M/mm3 (3.65-5.03); Red Cell Distribution Width 17.9 % (13.2-15.2)
[2018-07-21 10:22] LABS: Hemoglobin 11.3 gm/dl (11.8-15.2)
--- NOTE | 2018-07-21 10:22 | XRay Report ---
AP CHEST: HISTORY: chest pain Moderate to severe cardiomegaly and mild central pulmonary venous congestion appears stable since 07/10/18. Single lead pacemaker device is in the same position. The lungs are generally clear. No large infiltrate, pleural effusion or pneumothorax. IMPRESSION: Cardiomegaly and pulmonary venous congestion. No significant change since 07/10/18.
[2018-07-21 10:23] LABS: Hematocrit 37.6 % (35.5-45.6)
--- NOTE | 2018-07-21 10:28 | Emergency Department Report ---
ED Chest Pain HPI - General Chief Complaint: Chest Pain Stated Complaint: STEMI Time Seen by Provider: 07/21/18 10:05 Source: patient Mode of arrival: Stretcher Limitations: No Limitations - History of Present Illness Initial Comments: 33-year-old male presents to the ED with complaint of chest pain 30 minutes. Patient reports he ate a meatball [employer] sub this morning, and began to have chest pain afterward. He reports throbbing pain in the center and left side of chest, nonradiating. He reports associated shortness of breath. Patient was given aspirin and nitroglycerin by EMS, patient reports no relief pain is currently 8 out of 10. Pt has history of morbid obesity, CHF w/ EF of 10-15% and AICD in place, PE diagnosed 05/2018, currently on coumadin. According to cardiology note from pt's admission 11 days ago, pt was admitted at [facility] last month for similar complaints. Had CTA Chest that was negative for PE on 07/02/18. Had US of lower extremities that was negative for DVT on 07/01/18. Patient also had negative cardiac cath w/ normal coronaries last year. MD Complaint: chest pain -: minutes(s) (30) Onset: during rest, after eating Pain Location: substernal, left chest Pain Radiation: none Severity: severe Severity scale (0 -10): 8 Quality: other (throbbing) Improves With: nothing re: dyspnea. denies: nausea, vomting, diaphoresis Other Symptoms: denies: cough, fever Treatments Prior to Arrival: aspirin, nitroglycerin - Related Data Home Medications Medication Instructions Recorded Confirmed Last Taken Metformin HCl 1,000 mg PO BID 10/18/17 07/10/18 07/10/18 Previous Rx's Medication Instructions Recorded Last Taken Type ALBUTEROL Inhaler(NF) [VENTOLIN 2 puff IH Q4H PRN #1 unit 06/30/18 Unknown Rx Inhaler(NF)] Aspirin EC [Aspirin Enteric Coated 81 mg PO DAILY tablet 07/11/18 Unknown Rx TAB] AtorvaSTATin [Lipitor] 40 mg PO QHS tablet 07/11/18 Unknown Rx Carvedilol [Coreg] 12.5 mg PO BID tablet 07/11/18 Unknown Rx Losartan [Cozaar] 25 mg PO QDAY tablet 07/11/18 Unknown Rx Torsemide [Demadex] 40 mg PO BID@0600,1800 tablet 07/11/18 Unknown Rx Warfarin [Coumadin] 10 mg PO DAILY@1700 tablet 07/11/18 Unknown Rx oxyCODONE [Roxicodone TAB] 10 mg PO Q6H PRN tablet 07/11/18 Unknown Rx Allergies Allergy/AdvReac Type Severity Reaction Status Date / Time prochlorperazine Allergy Hives Verified 04/14/18 12:13 [From Compazine] Heart Score - HEART Score History: Highly suspicious EKG: Non-specific Age: < 45 Risk factors: > 3 risk factors or hx of atherosclerotic disease Troponin: < normal limit HEART Score: 5 ED Review of Systems ROS: Stated complaint: STEMI Other details as noted in HPI ED Past Medical Hx - Past Medical History Hx Hypertension: Yes Hx Heart Attack/AMI: Yes Hx Congestive Heart Failure: Yes Hx Diabetes: Yes Hx Deep Vein Thrombosis: Yes Hx Asthma: No Hx COPD: No Additional medical history: R sided chest tube, -infection in lung. defibrillator 10/2017. EJ 15%. lymphedema - Surgical History Hx Pacemaker: Yes Hx Internal Defibrillator: Yes ([employer]. Rate Analyst ) Additional Surgical History: lymphedema - Social History Smoking Status: Never Smoker - Medications Home Medications: Home Medications Medication Instructions Recorded Confirmed Last Taken Type Metformin HCl 1,000 mg PO BID 10/18/17 07/10/18 07/10/18 History ALBUTEROL Inhaler(NF) [VENTOLIN 2 puff IH Q4H PRN #1 unit 06/30/18 07/10/18 Unknown Rx Inhaler(NF)] Aspirin EC [Aspirin Enteric Coated 81 mg PO DAILY tablet 07/11/18 Unknown Rx TAB] AtorvaSTATin [Lipitor] 40 mg PO QHS tablet 07/11/18 Unknown Rx Carvedilol [Coreg] 12.5 mg PO BID tablet 07/11/18 Unknown Rx Losartan [Cozaar] 25 mg PO QDAY tablet 07/11/18 Unknown Rx Torsemide [Demadex] 40 mg PO BID@0600,1800 tablet 07/11/18 Unknown Rx Warfarin [Coumadin] 10 mg PO DAILY@1700 tablet 07/11/18 Unknown Rx oxyCODONE [Roxicodone TAB] 10 mg PO Q6H PRN tablet 07/11/18 Unknown Rx ED Physical Exam - General Limitations: No Limitations ED Course Vital Signs 07/21/18 07/21/18 07/21/18 09:54 09:57 10:01 Temperature 98.4 F Pulse Rate 99 H 99 H 100 H Respiratory 22 22 28 H Rate Blood Pressure 170/133 141/118 O2 Sat by Pulse 100 97 99 Oximetry 07/21/18 07/21/18 07/21/18 10:15 10:31 10:42 Temperature Pulse Rate 100 H 95 H Respiratory 11 L 24 22 Rate Blood Pressure 141/118 120/93 O2 Sat by Pulse 97 97 97 Oximetry 07/21/18 07/21/18 07/21/18 10:45 10:47 11:01 Temperature Pulse Rate 93 H 93 H 88 Respiratory 25 H 17 Rate Blood Pressure 120/93 119/82 O2 Sat by Pulse 95 96 Oximetry 07/21/18 07/21/18 07/21/18 11:15 11:31 11:45 Temperature Pulse Rate 91 H 87 91 H Respiratory 13 21 19 Rate Blood Pressure 119/82 94/65 95/77 O2 Sat by Pulse 99 95 95 Oximetry 07/21/18 07/21/18 07/21/18 12:01 12:15 12:31 Temperature Pulse Rate 87 85 84 Respiratory 19 24 22 Rate Blood Pressure 161/74 155/83 150/102 O2 Sat by Pulse 98 96 Oximetry 07/21/18 07/21/18 12:45 13:00 Temperature Pulse Rate 87 88 Respiratory 25 H 23 Rate Blood Pressure 150/102 133/95 O2 Sat by Pulse 93 Oximetry - Reevaluation(s) Reevaluation #1: 07/21/18 13:40 Informed by nurse that patient got up and walked out. States his daughter is sick and needs to see about her. Nurse tried to get pt to stay so that I could speak to him, but pt refused. Refused to sign AMA form. Stated he wasn't getting pain medicine anyway, so no need for him to stay. Second troponin was pending. - Consultations Consultation #1: 07/21/18 11:02 Spoke w/ SUKHWINDER Zimmer w/ [facility]. Informed of pt's nonsustained vtach episodes and admin of amiodarone bolus. States pt known to have this frequently. Has AICD in place. Does not advise amio gtt at this time. Will come down to see the patient. 07/21/18 11:38 Pt seen and evaluated by cardiology, Dr Bowling. Check troponin. If negative x 2, no need for admission. Low likelihood of ACS. SABRINA score - Sabrina Score Age > 65: (0) No Aspirin use within the Past 7 Days: (1) Yes 3 or more CAD Risk Factors: (1) Yes 2 or more Angina events in past 24 hrs: (0) No Known CAD with more than 50% Stenosis: (0) No Elevated Cardiac Markers: (1) Yes ST Deviation Greater than 0.5mm: (0) No SABRINA Score: 3 ED Medical Decision Making - Lab Data Result diagrams: 07/21/18 09:55 07/21/18 11:13 - EKG Data -: EKG Interpreted by [facility] EKG shows normal: sinus rhythm, axis Rate: tachycardia - EKG Data When compared to previous EKG there are: no significant change (compared to 06/28/18) Interpretation: other (T wave inversions inferolateral leads, unchanged from previous EKG; LBBB) - Radiology Data Radiology results: report reviewed, image reviewed - Medical Decision Making 33-year-old morbidly obese male with history of CHF, well known to this hospital, presents again with chest pain and shortness of breath. Patient does report that this happened after eating a meatball sub this morning. EKG was unremarkable, consistent with previous EKGs with show T wave inversions in the inferior leads. Patient did have a few runs of V. tach, for which he was given a bolus of amiodarone. He also has an AICD in place. Patient was given sublingual nitroglycerin for his chest pain, reported that this did not help his pain and requested morphine instead. Patient was seen and evaluated by SUKHWINDER Edward and charge entry clerk Dr. Bowling from [facility]. Suggested that we obtain troponins 2. Negative patient could be discharged home as patient had normal coronaries on cath from last year and negative workups during his most recent admissions. Patient also asked the charge entry clerk if he could get something other than nitro for pain and anxiety. First troponin within normal limits. CXR unchanged from last admission. Prior to 2nd troponin, pt decided to leave AMA because he was getting any anxiety meds or narcotic pain medication. Pt refused to sign AMA form. Pt walked out and ambulated without difficulty. - Differential Diagnosis CHF, ACS, GERD, malingering, drug seeking behavior Critical care attestation.: If time is entered above; I have spent that time in minutes in the direct care of this critically ill patient, excluding procedure time. ED Disposition Clinical Impression: Chest pain Disposition: DC-07 LEFT AGAINST MED ADVICE Is pt being admited?: No Condition: Stable Instructions: Chest Pain (ED) Referrals: PRIMARY CARE, [Primary Care Provider] - 3-5 Days Time of Disposition: 13:41
[2018-07-21 10:31] LABS: INR 1.08 (0.87-1.13); Partial Thromboplastin Time 27.3 Sec. (24.2-36.6)
[2018-07-21 10:39] LABS: BUN/Creatinine Ratio TNR; Blood Urea Nitrogen TNR mg/dL (9-20); Calcium TNR mg/dL (8.4-10.2)
[2018-07-21] MEDS ORDERED: NITROSTAT SL ONE (10:39)
[2018-07-21 10:40] LABS: Hemolysis Index TNR
[2018-07-21] MEDS ORDERED: NITROSTAT SL PRN (10:41)
[2018-07-21 11:51] LABS: BUN/Creatinine Ratio 18; Blood Urea Nitrogen 24 mg/dL (9-20); Calcium 8.9 mg/dL (8.4-10.2); Hemolysis Index 8
[2018-07-21 11:57] LABS: Anisocytosis 1+; Hypochromasia 1+; Platelet Estimate Consistent w Auto; Total Cells Counted 100
[2018-07-21 13:41] VITALS: BP 133/95
--- NOTE | 2018-07-21 13:56 | Consultation ---
History of Present Illness Consult date: 07/21/18 Requesting physician: MALORIE REYES Consult reason: chest pain History of present illness: The pt is a 33 YO male with a past medical history significant for chronic systolic heart failure, dilated NICMP, AICD in situ, frequent PVCs and NSVT, HTN, DM, RLE DVT, morbid obesity, lymphedema. He has been seen by our practice on prior hospitalizations and follows at [facility]. He presented with c/o chest pain since this morning. He states that he ate a meatball sub sandwich and then noted the development of his chest pain. He describes his chest pain as a midsternal aching pain. He denies any SOB, n/v, diaphoresis, dizziness or syncope. He called EMS and although he did not feel he needed to be evaluated in the ED, he followed the advice of the paramedics and was transported to ED. On evaluation, he states that his chest pain has resolved and that he is ready to go home. He is requesting pain and anxiety medications despite reported resolution of his chest pain. Pt underwent LHC and RHC at [place] on 10/24/2017 which showed angiographically normal coronary arteries, normal right-sided filling pressures with a mean RA pressure of 5 mmHg, mildly elevated pulmonary artery pressures with a mean PA pressure of 27 mmHg and PA pressure was 38/16mmHG, mildly elevated left-sided filling pressures with a mean PCWP of 18 mmHg with a directly measured LVEDP of 20 mmHg, normal cardiac output with a CO of 5.74 L/min with a cardiac index of 1.82 L/min/m2 using a the Albaro equation. Echo done in 02/18/2018 at [place] showed EF 10-15%, LV severely dilated, LA severely dilated, mod TR, grade 2 diastolic dysfunction, mod MR, mod reduced RV systolic function, RVSP 25.2mmHg. Past History Past Medical History: other (as per HPI) Medications and Allergies Allergies Allergy/AdvReac Type Severity Reaction Status Date / Time prochlorperazine Allergy Hives Verified 04/14/18 12:13 [From Compazine] Home Medications Medication Instructions Recorded Confirmed Last Taken Type Metformin HCl 1,000 mg PO BID 10/18/17 07/10/18 07/10/18 History ALBUTEROL Inhaler(NF) [VENTOLIN 2 puff IH Q4H PRN #1 unit 06/30/18 07/10/18 Unknown Rx Inhaler(NF)] Aspirin EC [Aspirin Enteric Coated 81 mg PO DAILY tablet 07/11/18 Unknown Rx TAB] AtorvaSTATin [Lipitor] 40 mg PO QHS tablet 07/11/18 Unknown Rx Carvedilol [Coreg] 12.5 mg PO BID tablet 07/11/18 Unknown Rx Losartan [Cozaar] 25 mg PO QDAY tablet 07/11/18 Unknown Rx Torsemide [Demadex] 40 mg PO BID@0600,1800 tablet 07/11/18 Unknown Rx Warfarin [Coumadin] 10 mg PO DAILY@1700 tablet 07/11/18 Unknown Rx oxyCODONE [Roxicodone TAB] 10 mg PO Q6H PRN tablet 07/11/18 Unknown Rx Active Meds: Active Medications Nitroglycerin (Nitrostat) 0.4 mg SL .Q5MIN PRN PRN Reason: Chest Pain Last Admin: 07/21/18 10:47 Dose: 0.4 mg Documented by: Review of Systems Constitutional: no weight loss, no weight gain, no fever, no chills, no sweats Ears, nose, mouth and throat: no ear pain, no nose pain, no sinus pressure, no sinus pain Cardiovascular: chest pain, high blood pressure, leg edema, no orthopnea, no palpitations, no rapid/irregular heart beat, no edema, no syncope, no lightheadedness, no shortness of breath Respiratory: no cough, no shortness of breath, no congestion, no wheezing, no pain on inspiration Gastrointestinal: no abdominal pain, no nausea, no vomiting, no diarrhea, no constipation, no change in bowel habits Genitourinary Male: no dysuria, no hematuria, no flank pain, no discharge, no urinary frequency, no urinary hesitancy Musculoskeletal: no neck stiffness, no neck pain, no shooting arm pain, no arm numbness/tingling, no low back pain, no shooting leg pain Integumentary: no rash, no pruritis, no redness, no sores, no wounds Neurological: no head injury, no paralysis, no weakness, no parathesias, no numbness, no tingling, no seizures, no syncope Psychiatric: no anxiety Endocrine: no cold intolerance, no heat intolerance Hematologic/Lymphatic: lymphedema, no easy bruising, no easy bleeding Allergic/Immunologic: no urticaria, no wheezing Physical Examination Vital Signs Pulse Resp Pulse Ox 99 H 22 100 07/21/18 09:54 07/21/18 09:54 07/21/18 09:54 General appearance: no acute distress HEENT: Positive: PERRL, Normocephaly, Mucus Membranes Moist Neck: Positive: neck supple, trachea midline Cardiac: Positive: Reg Rate and Rhythm, S1/S2 Lungs: Positive: clear to auscultation Neuro: Positive: Grossly Intact Abdomen: Positive: Soft. Negative: Tender Skin: Negative: Rash Musculoskeletal: No Pain Extremities: Present: +1 Edema (chronic, nonpitting, R>L due to lymphedema) Results 07/21/18 09:55 07/21/18 11:13 Coagulation 07/21/18 Range/Units 09:55 PT 14.4 (12.2-14.9) Sec. INR 1.08 (0.87-1.13) APTT 27.3 (24.2-36.6) Sec. CBC 07/21/18 Range/Units 09:55 WBC 6.9 (4.5-11.0) K/mm3 RBC 5.15 H (3.65-5.03) M/mm3 Hgb 11.3 L (11.8-15.2) gm/dl Hct 37.6 (35.5-45.6) % Plt Count 276 (140-440) K/mm3 Comprehensive Metabolic Panel 07/21/18 07/21/18 Range/Units 09:55 11:13 Sodium TNR 139 Potassium TNR 4.5 Chloride TNR 103.8 Carbon Dioxide TNR 21 L BUN TNR 24 H Creatinine TNR 1.3 Glucose TNR 155 H Calcium TNR 8.9 - Imaging and Cardiology Echo: report reviewed Cardiac cath: report reviewed EKG: report reviewed, image reviewed EKG interpretations - Telemetry EKG Rhythm: Sinus Rhythm - EKG Sinus rhythms and dysrhythmias: sinus rhythm Assessment and Plan Assessment: Atypical chest pain - ECG with no acute ischemic changes; currently resolved Chronic systolic heart failure - no current clinical evidence of acute exacerbation Acute on chronic RLE DVT / subtherapeutic INR Dilated NICMP - EF 10-15% AICD in situ Frequent PVCs and NSVT LBBB HTN DM Morbid obesity - pt considering gastric bypass surgery Lymphedema Plan: Currently stable cardiac status. ECG with NAF. Nicol negative for AMI x 2. Pt reports resolution of chest pain. Pt may discharge home from cardiology standpoint. Recommend pt follow up with his primary head of cytogenetics within 1-2 weeks. Pt verbalizes understanding. The patient has been seen in conjunction with Dr. Bowling who agrees with the assessment and plan of care.
== END 2018-07-21 13:34 | disposition left against medical advice (07) ==
LOC: ED 09:47
DX: R07.89 Other chest pain (principal); R06.02 Shortness of breath; I11.0 Hypertensive heart disease with heart failure; I50.9 Heart failure, unspecified; I25.2 Old myocardial infarction; E66.01 Morbid (severe) obesity due to excess calories; Z95.0 Presence of cardiac pacemaker; Z86.718 Personal history of other venous thrombosis and embolism; Z79.82 Long term (current) use of aspirin; Z88.8 Allergy status to other drugs, medicaments and biological substances
CPT/HCPCS: 36415; 71045; 80048; 83735; 83880; 84484; 85007; 85025; 85610; 85730; 93005; 93010; 96374; 99284; J0282; 99285

== ENCOUNTER 2018-08-25 08:36 | Emergency (ER) | payer OTHER ==
[2018-08-25 09:26] LABS: Basophils # (Auto) 0.1 K/mm3 (0.0-0.1); Basophils % (Auto) 1.1 % (0.0-1.8); Eosinophils # (Auto) 0.1 K/mm3 (0.0-0.4); Eosinophils % (Auto) 0.9 % (0.0-4.3); Lymphocytes # (Auto) 1.6 K/mm3 (1.2-5.4); Lymphocytes % (Auto) 25.1 % (13.4-35.0); Mean Corpuscular HGB Conc 30 % (32-34); Mean Corpuscular Volume 71 fl (84-94); Monocytes # (Auto) 0.8 K/mm3 (0.0-0.8); Platelet Count 267 K/mm3 (140-440); Red Blood Count 4.73 M/mm3 (3.65-5.03)
[2018-08-25 09:32] LABS: Hematocrit 33.4 % (35.5-45.6); Hemoglobin 10.1 gm/dl (11.8-15.2)
[2018-08-25 09:33] LABS: BUN/Creatinine Ratio 28; Blood Urea Nitrogen 36 mg/dL (9-20); Calcium 9.2 mg/dL (8.4-10.2); Hemolysis Index 3
--- NOTE | 2018-08-25 09:48 | XRay Report ---
AP CHEST: HISTORY: Shortness of breath Moderate cardiomegaly, mild pulmonary venous congestion and trace bilateral pleural effusions are suspected. No obvious infiltrate or pneumothorax. Single lead pacemaker device is unchanged. IMPRESSION: Mild CHF. No overwhelming change is demonstrated since 07/21/18.
[2018-08-25 10:02] VITALS: BP 144/78
[2018-08-25] MEDS ORDERED: ZOFRAN IV ONE (10:18)
[2018-08-25] MEDS ORDERED: MORPHINE IV ONE ×2 (10:18→11:27)
--- NOTE | 2018-08-25 10:27 | Emergency Department Report ---
ED General Adult HPI - General Chief complaint: Dyspnea/Respdistress Stated complaint: DIFFICULTY BREATHING/LEG PAIN Time Seen by Provider: 08/25/18 09:49 Source: EMS Mode of arrival: Stretcher Limitations: No Limitations - History of Present Illness Initial comments: Patient presents to emergency Department for chief complaint of bilateral leg pain. The patient has a history of peripheral edema with CHF and takes Lasix daily. Patient states he normally takes Percocet for his pain but he has ran out. Patient has a history of her chronic DVT of the right lower extremity which she is on Coumadin for. Patient denies chest pain, suspect, headache. Patient doesn't was have a chronic pain of his legs secondary to neuropathy -: Gradual Location: lower extremity Radiation: non-radiation Severity scale (0 -10): 8 Quality: aching Consistency: constant Improves with: none Worsens with: none Associated Symptoms: denies other symptoms Treatments Prior to Arrival: none - Related Data Home Medications Medication Instructions Recorded Confirmed Last Taken Metformin HCl 500 mg PO BID 10/18/17 08/25/18 08/24/18 Warfarin [Coumadin] 7.5 mg PO DAILY 08/25/18 08/25/18 08/24/18 Previous Rx's Medication Instructions Recorded Last Taken Type Aspirin EC [Aspirin Enteric Coated 81 mg PO DAILY tablet 07/11/18 08/24/18 Rx TAB] AtorvaSTATin [Lipitor] 40 mg PO QHS tablet 07/11/18 08/24/18 Rx Carvedilol [Coreg] 12.5 mg PO BID tablet 07/11/18 08/24/18 Rx Losartan [Cozaar] 25 mg PO QDAY tablet 07/11/18 08/24/18 Rx Torsemide [Demadex] 40 mg PO BID@0600,1800 tablet 07/11/18 08/24/18 Rx oxyCODONE [Roxicodone TAB] 10 mg PO Q6H PRN tablet 07/11/18 08/24/18 Rx oxyCODONE /ACETAMINOPHEN [Percocet 1 tab PO Q6HR PRN #8 tablet 08/25/18 Unknown Rx 5/325] Allergies Allergy/AdvReac Type Severity Reaction Status Date / Time prochlorperazine Allergy Hives Verified 04/14/18 12:13 [From Compazine] ED Review of Systems ROS: Stated complaint: DIFFICULTY BREATHING/LEG PAIN Other details as noted in HPI Comment: All other systems reviewed and negative Constitutional: denies: chills, fever Eyes: denies: eye pain, eye discharge, vision change ENT: denies: ear pain, throat pain Respiratory: denies: cough, shortness of breath, wheezing Cardiovascular: denies: chest pain, palpitations Endocrine: no symptoms reported Gastrointestinal: denies: abdominal pain, nausea, diarrhea Genitourinary: denies: urgency, dysuria Musculoskeletal: denies: back pain, joint swelling, arthralgia Skin: denies: rash, lesions Neurological: denies: headache, weakness, paresthesias Psychiatric: denies: anxiety, depression Hematological/Lymphatic: denies: easy bleeding, easy bruising ED Past Medical Hx - Past Medical History Previous Medical History?: Yes Hx Hypertension: Yes Hx Heart Attack/AMI: Yes Hx Congestive Heart Failure: Yes Hx Diabetes: Yes Hx Deep Vein Thrombosis: Yes Hx Asthma: No Hx COPD: No Additional medical history: R sided chest tube, -infection in lung. defibrillator 10/2017. EJ 15%. lymphedema - Surgical History Past Surgical History?: Yes Hx Pacemaker: Yes Hx Internal Defibrillator: Yes ([employer]. [employer] Picture [employer] ) Additional Surgical History: lymphedema - Social History Smoking Status: Unknown if ever smoked Substance Use Type: None - Medications Home Medications: Home Medications Medication Instructions Recorded Confirmed Last Taken Type Metformin HCl 500 mg PO BID 10/18/17 08/25/18 08/24/18 History Aspirin EC [Aspirin Enteric Coated 81 mg PO DAILY tablet 07/11/18 08/25/18 08/24/18 Rx TAB] AtorvaSTATin [Lipitor] 40 mg PO QHS tablet 07/11/18 08/25/18 08/24/18 Rx Carvedilol [Coreg] 12.5 mg PO BID tablet 07/11/18 08/25/18 08/24/18 Rx Losartan [Cozaar] 25 mg PO QDAY tablet 07/11/18 08/25/18 08/24/18 Rx Torsemide [Demadex] 40 mg PO BID@0600,1800 tablet 07/11/18 08/25/18 08/24/18 Rx oxyCODONE [Roxicodone TAB] 10 mg PO Q6H PRN tablet 07/11/18 08/25/18 08/24/18 Rx Warfarin [Coumadin] 7.5 mg PO DAILY 08/25/18 08/25/18 08/24/18 History oxyCODONE /ACETAMINOPHEN [Percocet 1 tab PO Q6HR PRN #8 tablet 08/25/18 Unknown Rx 5/325] ED Physical Exam - General Limitations: No Limitations General appearance: alert, in no apparent distress - Head Head exam: Present: atraumatic, normocephalic - Eye Eye exam: Present: normal appearance, PERRL, EOMI - ENT ENT exam: Present: mucous membranes moist - Neck Neck exam: Present: normal inspection - Respiratory Respiratory exam: Present: normal lung sounds bilaterally. Absent: respiratory distress, wheezes, rales, rhonchi - Cardiovascular Cardiovascular Exam: Present: regular rate, normal rhythm. Absent: systolic murmur, diastolic murmur, rubs, gallop - GI/Abdominal GI/Abdominal exam: Present: soft, normal bowel sounds. Absent: distended, tenderness - Rectal Rectal exam: Present: deferred - Extremities Exam Extremities exam: Present: other (patient has bilateral pitting edema of the lower extremities) - Back Exam Back exam: Present: normal inspection - Neurological Exam Neurological exam: Present: alert, oriented X3. Absent: CN II-XII intact, motor sensory deficit - Psychiatric Psychiatric exam: Present: normal affect, normal mood - Skin Skin exam: Present: warm, dry, intact, normal color. Absent: rash ED Course Vital Signs 08/25/18 08/25/18 08/25/18 08:48 08:55 09:01 Temperature 98.2 F Pulse Rate 100 H 98 H Respiratory 25 H 33 H Rate Blood Pressure 133/99 133/81 O2 Sat by Pulse 99 100 91 Oximetry 08/25/18 08/25/18 08/25/18 09:15 09:31 09:45 Temperature Pulse Rate 96 H Respiratory 27 H Rate Blood Pressure 133/81 149/90 149/90 O2 Sat by Pulse 98 98 98 Oximetry 08/25/18 08/25/18 10:00 10:18 Temperature Pulse Rate Respiratory 28 H Rate Blood Pressure 144/78 O2 Sat by Pulse 97 100 Oximetry ED Medical Decision Making - Lab Data Result diagrams: 08/25/18 09:06 08/25/18 09:06 Lab Results 08/25/18 08/25/18 08/25/18 Range/Units 09:06 09:06 09:06 WBC 6.3 (4.5-11.0) K/mm3 RBC 4.73 (3.65-5.03) M/mm3 Hgb 10.1 L (11.8-15.2) gm/dl Hct 33.4 L (35.5-45.6) % MCV 71 L (84-94) fl MCH 21 L (28-32) pg MCHC 30 L (32-34) % RDW 19.0 H (13.2-15.2) % Plt Count 267 (140-440) K/mm3 Lymph % (Auto) 25.1 (13.4-35.0) % [place] % (Auto) 12.0 H (0.0-7.3) % Eos % (Auto) 0.9 (0.0-4.3) % Baso % (Auto) 1.1 (0.0-1.8) % Lymph # 1.6 (1.2-5.4) K/mm3 [place] # 0.8 (0.0-0.8) K/mm3 Eos # 0.1 (0.0-0.4) K/mm3 Baso # 0.1 (0.0-0.1) K/mm3 Seg Neutrophils % 60.9 (40.0-70.0) % Seg Neutrophils # 3.9 (1.8-7.7) K/mm3 PT (12.2-14.9) Sec. INR (0.87-1.13) APTT (24.2-36.6) Sec. Sodium 135 L (137-145) mmol/L Potassium 4.8 (3.6-5.0) mmol/L Chloride 98.8 (98-107) mmol/L Carbon Dioxide 21 L (22-30) mmol/L Anion Gap 20 mmol/L BUN 36 H (9-20) mg/dL Creatinine 1.3 (0.8-1.5) mg/dL Estimated GFR > 60 ml/min BUN/Creatinine Ratio 28 % Glucose 111 H (75-100) mg/dL Calcium 9.2 (8.4-10.2) mg/dL NT-Pro-B Natriuret Pep 2736 H (0-450) pg/mL 08/25/18 Range/Units 10:30 WBC (4.5-11.0) K/mm3 RBC (3.65-5.03) M/mm3 Hgb (11.8-15.2) gm/dl Hct (35.5-45.6) % MCV (84-94) fl MCH (28-32) pg MCHC (32-34) % RDW (13.2-15.2) % Plt Count (140-440) K/mm3 Lymph % (Auto) (13.4-35.0) % [place] % (Auto) (0.0-7.3) % Eos % (Auto) (0.0-4.3) % Baso % (Auto) (0.0-1.8) % Lymph # (1.2-5.4) K/mm3 [place] # (0.0-0.8) K/mm3 Eos # (0.0-0.4) K/mm3 Baso # (0.0-0.1) K/mm3 Seg Neutrophils % (40.0-70.0) % Seg Neutrophils # (1.8-7.7) K/mm3 PT 18.2 H (12.2-14.9) Sec. INR 1.46 H (0.87-1.13) APTT 34.2 (24.2-36.6) Sec. Sodium (137-145) mmol/L Potassium (3.6-5.0) mmol/L Chloride (98-107) mmol/L Carbon Dioxide (22-30) mmol/L Anion Gap mmol/L BUN (9-20) mg/dL Creatinine (0.8-1.5) mg/dL Estimated GFR ml/min BUN/Creatinine Ratio % Glucose (75-100) mg/dL Calcium (8.4-10.2) mg/dL NT-Pro-B Natriuret Pep (0-450) pg/mL - Medical Decision Making Discussed results with pt Sx improved with morphine Critical care attestation.: If time is entered above; I have spent that time in minutes in the direct care of this critically ill patient, excluding procedure time. ED Disposition Clinical Impression: Leg pain, bilateral Disposition: DC-01 TO HOME OR SELFCARE Is pt being admited?: No Does the pt Need Aspirin: No Condition: Stable Prescriptions: oxyCODONE /ACETAMINOPHEN [Percocet 5/325] 1 tab PO Q6HR PRN #8 tablet PRN Reason: Pain Referrals: GREGORIO GOLDEN MD [Primary Care Provider] - 3-5 Days [facility] [Provider Group] - 3-5 Days [facility] [Provider Group] - 3-5 Days Time of Disposition: 12:19
[2018-08-25 10:49] LABS: INR 1.46 (0.87-1.13)
[2018-08-25 10:50] LABS: Partial Thromboplastin Time 34.2 Sec. (24.2-36.6)
== END 2018-08-25 12:49 | disposition home or self-care (01) ==
LOC: ED 08:36
DX: M79.604 Pain in right leg (principal); M79.605 Pain in left leg; I11.0 Hypertensive heart disease with heart failure; I50.9 Heart failure, unspecified; I25.2 Old myocardial infarction; E11.9 Type 2 diabetes mellitus without complications; Z86.718 Personal history of other venous thrombosis and embolism; Z95.818 Presence of other cardiac implants and grafts; Z88.8 Allergy status to other drugs, medicaments and biological substances
CPT/HCPCS: 36415; 71045; 80048; 83880; 85025; 85610; 85730; 93005; 93010; 96374; 96375; 96376; 99284; J2270; J2405

== ENCOUNTER 2018-09-02 06:31 | Emergency (ER) | payer OTHER ==
[2018-09-02 06:51] VITALS: BP 145/98
[2018-09-02 07:23] LABS: BUN/Creatinine Ratio 27; Blood Urea Nitrogen 41 mg/dL (9-20); Calcium 8.8 mg/dL (8.4-10.2); Hemolysis Index 85
[2018-09-02 07:32] LABS: Mean Corpuscular HGB Conc 30 % (32-34); Red Blood Count 4.76 M/mm3 (3.65-5.03); Red Cell Distribution Width 19.2 % (13.2-15.2)
[2018-09-02 07:33] LABS: Hematocrit 32.7 % (35.5-45.6); Hemoglobin 9.9 gm/dl (11.8-15.2); Mean Corpuscular Volume 69 fl (84-94)
--- NOTE | 2018-09-02 07:47 | Emergency Department Report ---
ED General Adult HPI - General Chief complaint: Extremity Problem,Nontraumatic Stated complaint: LEG EDEMA Time Seen by Provider: 09/02/18 07:32 Source: patient Mode of arrival: Stretcher Limitations: No Limitations - History of Present Illness Initial comments: Patient presents to emergency Department chief complaint of bilateral leg pain. Patient states he has a chronic DVT in the right lid but his right leg is become more painful and more swollen. Patient also complains of left leg pain has become worse over the last week as well. Patient's concerned that he may have a blood clot in his left leg. Patient denies any chest pain, shortness breath, or abdominal pain. -: Gradual Location: lower extremity Radiation: non-radiation Severity scale (0 -10): 10 Quality: sharp Consistency: constant Improves with: none Worsens with: none Associated Symptoms: denies other symptoms Treatments Prior to Arrival: none - Related Data Home Medications Medication Instructions Recorded Confirmed Last Taken Metformin HCl 500 mg PO BID 10/18/17 08/25/18 08/24/18 Warfarin [Coumadin] 7.5 mg PO DAILY 08/25/18 08/25/18 08/24/18 Previous Rx's Medication Instructions Recorded Last Taken Type Aspirin EC [Aspirin Enteric Coated 81 mg PO DAILY tablet 07/11/18 08/24/18 Rx TAB] AtorvaSTATin [Lipitor] 40 mg PO QHS tablet 07/11/18 08/24/18 Rx Carvedilol [Coreg] 12.5 mg PO BID tablet 07/11/18 08/24/18 Rx Losartan [Cozaar] 25 mg PO QDAY tablet 07/11/18 08/24/18 Rx Torsemide [Demadex] 40 mg PO BID@0600,1800 tablet 07/11/18 08/24/18 Rx oxyCODONE [Roxicodone TAB] 10 mg PO Q6H PRN tablet 07/11/18 08/24/18 Rx oxyCODONE /ACETAMINOPHEN [Percocet 1 tab PO Q6HR PRN #8 tablet 08/25/18 Unknown Rx 5/325] Allergies Allergy/AdvReac Type Severity Reaction Status Date / Time prochlorperazine Allergy Hives Verified 04/14/18 12:13 [From Compazine] ED Review of Systems ROS: Stated complaint: LEG EDEMA Other details as noted in HPI Comment: All other systems reviewed and negative Constitutional: denies: chills, fever Eyes: denies: eye pain, eye discharge, vision change ENT: denies: ear pain, throat pain Respiratory: denies: cough, shortness of breath, wheezing Cardiovascular: denies: chest pain, palpitations Endocrine: no symptoms reported Gastrointestinal: denies: abdominal pain, nausea, diarrhea Genitourinary: denies: urgency, dysuria Musculoskeletal: other (bilateral leg pain). denies: back pain, joint swelling, arthralgia Skin: denies: rash, lesions Neurological: denies: headache, weakness, paresthesias Psychiatric: denies: anxiety, depression Hematological/Lymphatic: denies: easy bleeding, easy bruising ED Past Medical Hx - Past Medical History Previous Medical History?: Yes Hx Hypertension: Yes Hx Heart Attack/AMI: Yes Hx Congestive Heart Failure: Yes Hx Diabetes: Yes Hx Deep Vein Thrombosis: Yes Hx Asthma: No Hx COPD: No Additional medical history: R sided chest tube, -infection in lung. defibrillator 10/2017. EJ 15%. 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 ) Additional Surgical History: lymphedema - Social History Smoking Status: Never Smoker - Medications Home Medications: Home Medications Medication Instructions Recorded Confirmed Last Taken Type Metformin HCl 500 mg PO BID 10/18/17 08/25/18 08/24/18 History Aspirin EC [Aspirin Enteric Coated 81 mg PO DAILY tablet 07/11/18 08/25/18 08/24/18 Rx TAB] AtorvaSTATin [Lipitor] 40 mg PO QHS tablet 07/11/18 08/25/18 08/24/18 Rx Carvedilol [Coreg] 12.5 mg PO BID tablet 07/11/18 08/25/18 08/24/18 Rx Losartan [Cozaar] 25 mg PO QDAY tablet 07/11/18 08/25/18 08/24/18 Rx Torsemide [Demadex] 40 mg PO BID@0600,1800 tablet 07/11/18 08/25/18 08/24/18 Rx oxyCODONE [Roxicodone TAB] 10 mg PO Q6H PRN tablet 07/11/18 08/25/18 08/24/18 Rx Warfarin [Coumadin] 7.5 mg PO DAILY 0208/25/18 08/24/18 History oxyCODONE /ACETAMINOPHEN [Percocet 1 tab PO Q6HR PRN #8 tablet 08/25/18 Unknown Rx 5/325] ED Physical Exam - General Limitations: No Limitations General appearance: alert, in no apparent distress - Head Head exam: Present: atraumatic, normocephalic - Eye Eye exam: Present: normal appearance, PERRL, EOMI - ENT ENT exam: Present: mucous membranes moist - Neck Neck exam: Present: normal inspection - Respiratory Respiratory exam: Present: normal lung sounds bilaterally. Absent: respiratory distress, wheezes - Cardiovascular Cardiovascular Exam: Present: regular rate, normal rhythm. Absent: systolic murmur, diastolic murmur, rubs, gallop - GI/Abdominal GI/Abdominal exam: Present: soft, normal bowel sounds. Absent: distended, tenderness - Rectal Rectal exam: Present: deferred - Extremities Exam Extremities exam: Present: other (bilateral pitting edema) - Back Exam Back exam: Present: normal inspection - Neurological Exam Neurological exam: Present: alert, oriented X3, CN II-XII intact. Absent: motor sensory deficit - Psychiatric Psychiatric exam: Present: normal affect, normal mood - Skin Skin exam: Present: warm, dry, intact, normal color. Absent: rash ED Course Vital Signs 09/02/18 09/02/18 06:46 07:35 Temperature 98.3 F Pulse Rate 89 Respiratory 16 Rate Blood Pressure 145/98 Blood Pressure 145/98 [Right] O2 Sat by Pulse 97 99 Oximetry ED Medical Decision Making - Lab Data Result diagrams: 09/02/18 06:56 09/02/18 06:56 D discussed results with the patient Patient received IV lasix - Radiology Data Radiology results: report reviewed Critical Care Time: Yes Critical care time in (mins) excluding proc time.: 35 Critical care attestation.: If time is entered above; I have spent that time in minutes in the direct care of this critically ill patient, excluding procedure time. ED Disposition Clinical Impression: Anasarca, Leg pain, bilateral Disposition: DC-01 TO HOME OR SELFCARE Is pt being admited?: No Does the pt Need Aspirin: No Condition: Stable Instructions: Leg Edema (ED) Additional Instructions: return if worse Referrals: HELENE BAIRES [Primary Care Provider] - 3-5 Days Time of Disposition: 12:36
[2018-09-02] MEDS ORDERED: ZOFRAN IV ONE (07:48)
[2018-09-02] MEDS ORDERED: DILAUDID IV ONE ×3 (07:48→11:59)
--- NOTE | 2018-09-02 08:09 | XRay Report ---
PORTABLE CHEST INDICATION: CHF. COMPARISON: 08/25/2018 FINDINGS: Portable, frontal chest radiograph again demonstrates moderate cardiomegaly and left AICD with single ventricular lead. Slight increased peripheral right mid to lower lung hazy opacity/small pleural effusion with partly obscured right hemidiaphragm. No cephalization, though slight increased fluid along the right minor fissure now noted. Perihilar markings again somewhat prominent. Stable bones. EKG leads. CONCLUSION: Cardiomegaly and pulmonary hypertension again noted with stable to slight radiographic worsening of right lower lung opacity, as described. Please correlate. Thank you for the opportunity to participate in this patient's care.
[2018-09-02 08:24] LABS: INR 1.36 (0.87-1.13); Partial Thromboplastin Time 22.6 Sec. (24.2-36.6)
[2018-09-02 08:42] LABS: Basophils % (Manual) 0 % (0.0-1.8); Eosinophils % (Manual) 0 % (0.0-4.3); Total Cells Counted 100
[2018-09-02 09:10] LABS: Anisocytosis 1+; Hypochromasia 1+; Ovalocytes Few; Platelet Estimate Consistent w Auto; Poikilocytosis 2+; Target Cells 1+
[2018-09-02 09:41] LABS: Platelet Count 280 K/mm3 (140-440)
--- NOTE | 2018-09-02 10:31 | Vascular Lab Report ---
FINAL REPORT EXAM: VL VENOUS DUPLEX LE BILAT HISTORY: pain TECHNIQUE: Marrero scale, color and pulsed Doppler ultrasound with color flow and spectral analysis zeny luation of both lower extremities were performed to assess for deep vein thrombosis. PRIORS: None currently available. FINDINGS: RIGHT Extremity: Unable to visualize the calf veins. Otherwise, in the upper portion of the lower extremity, there is normal grayscale appearance and comp ressibility. Normal phasic pulsed Doppler and normal color Doppler flow are visualized. The interroga deysi vessels show normal augmentation. Left Extremity: Unable to visualize the calf veins. Otherwise, in the upper portion of the lower extremity, there is normal grayscale appearance and comp ressibility. Normal phasic pulsed Doppler and normal color Doppler flow are visualized. The interroga deysi vessels show normal augmentation. IMPRESSION: No evidence for DVT in the upper portion of the lower extremities. Unable to visualize the calf veins and a DVT in the lower portions is not excluded.
[2018-09-02 10:52] LABS: Chol/HDL Ratio 1.93 %
[2018-09-02] MEDS ORDERED: DILAUDID ONE (11:37)
[2018-09-02] MEDS ORDERED: LASIX IV ONE (11:37)
[2018-09-02] MEDS ORDERED: LASIX 60 MG in NACL 0.9% 50 ML IV ONE (11:59)
== END 2018-09-02 13:01 | disposition home or self-care (01) ==
LOC: ED 06:31
DX: R60.1 Generalized edema (principal); M79.605 Pain in left leg; M79.604 Pain in right leg; I11.0 Hypertensive heart disease with heart failure; I50.9 Heart failure, unspecified; I25.2 Old myocardial infarction; Z86.718 Personal history of other venous thrombosis and embolism
CPT/HCPCS: 36415; 71045; 80048; 80061; 83735; 83880; 84100; 84484; 85007; 85025; 85610; 85730; 93005; 93010; 93970; 96365; 96375; 96376; 99285; J1170; J1940; J2405

== ENCOUNTER 2018-11-04 19:57 | Inpatient (IN) | payer OTHER ==
--- NOTE | 2018-11-04 20:11 | Emergency Department Report ---
Blank Doc - Documentation Documentation: This is a 33-year-old male that presents with chest pain and SOB. Has radiation to left leg. This initial assessment/diagnostic orders/clinical plan/treatment(s) is/are subject to change based on patient's health status, clinical progression and re- assessment by fellow clinical providers in the ED. Further treatment and workup at subsequent clinical providers discretion. Patient/guardians urged not to elope from the ED as their condition may be serious if not clinically assessed and managed. Initial orders include: 1- Patient sent to MAIN for further evaluation and treatment 2- labs 3- EKG 4- CXR
[2018-11-04] MEDS ORDERED: MORPHINE IV ONE (20:59)
[2018-11-04] MEDS ORDERED: ZOFRAN IV ONE (20:59)
[2018-11-04] MEDS ORDERED: NITRO-BID 2% TP ONE (20:59)
--- NOTE | 2018-11-04 21:03 | Emergency Department Report ---
ED Chest Pain HPI - General Chief Complaint: Chest Pain Stated Complaint: CHEST PAIN SOB LEG PAIN Time Seen by Provider: 11/04/18 20:10 Source: patient, old records reviewed Mode of arrival: Ambulatory Limitations: No Limitations - History of Present Illness Initial Comments: 33-year-old male has a history of morbid obesity, CHF, chronic right leg DVT c urrently on Coumadin, diabetes, hypertension, chronic lymphedema, CHF with EF of 15%, and AICD placement since the hospital complaints of left-sided chest pain that started 1 hour ago while working out. Patient has been working out with a skills trainer for several weeks. Today while working out he did develop left-sided sharp chest pain that then turned into a throbbing pain. Positive Associated shortness of breath and lightheadedness. Patient denies nausea or vomiting. Patient checked isosorbide but pain continued. He still is having intermittent pain that is exacerbated by exertion and activity. Patient also states he experienced significant right leg pain and tightness is more swollen now than this morning. Patient has been compliant with all medications including Coumadin and Lasix. 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 He had a cardiac cath at [facility] last year and to his knowledge he did not require angioplasty or stent. Severity scale (0 -10): 8 - Related Data Home Medications Medication Instructions Recorded Confirmed Last Taken Metformin HCl 500 mg PO BID 10/18/17 08/25/18 08/24/18 Warfarin [Coumadin] 7.5 mg PO DAILY 08/25/18 08/25/18 08/24/18 Previous Rx's Medication Instructions Recorded Last Taken Type Aspirin EC [Aspirin Enteric Coated 81 mg PO DAILY tablet 07/11/18 08/24/18 Rx TAB] AtorvaSTATin [Lipitor] 40 mg PO QHS tablet 07/11/18 08/24/18 Rx Carvedilol [Coreg] 12.5 mg PO BID tablet 07/11/18 08/24/18 Rx Losartan [Cozaar] 25 mg PO QDAY tablet 07/11/18 08/24/18 Rx Torsemide [Demadex] 40 mg PO BID@0600,1800 tablet 07/11/18 08/24/18 Rx oxyCODONE [Roxicodone TAB] 10 mg PO Q6H PRN tablet 07/11/18 08/24/18 Rx oxyCODONE /ACETAMINOPHEN [Percocet 1 tab PO Q6HR PRN #8 tablet 08/25/18 Unknown Rx 5/325] Allergies Allergy/AdvReac Type Severity Reaction Status Date / Time prochlorperazine Allergy Hives Verified 04/14/18 12:13 [From Compazine] Heart Score - HEART Score History: Moderately suspicious EKG: Non-specific Age: < 45 Risk factors: > 3 risk factors or hx of atherosclerotic disease Troponin: < normal limit HEART Score: 4 ED Review of Systems ROS: Stated complaint: CHEST PAIN SOB LEG PAIN Other details as noted in HPI Comment: All other systems reviewed and negative ED Past Medical Hx - Past Medical History Previous Medical History?: Yes Hx Hypertension: Yes Hx Heart Attack/AMI: Yes Hx Congestive Heart Failure: Yes Hx Diabetes: Yes Hx Deep Vein Thrombosis: Yes Hx Asthma: No Hx COPD: No Additional medical history: R sided chest tube, -infection in lung. defibrillator 10/2017. EJ 15%. 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 [employer] ) Additional Surgical History: lymphedema - Social History Smoking Status: Never Smoker Substance Use Type: None - Medications Home Medications: Home Medications Medication Instructions Recorded Confirmed Last Taken Type Metformin HCl 500 mg PO BID 10/18/17 08/25/18 08/24/18 History Aspirin EC [Aspirin Enteric Coated 81 mg PO DAILY tablet 07/11/18 08/25/18 08/24/18 Rx TAB] AtorvaSTATin [Lipitor] 40 mg PO QHS tablet 07/11/18 08/25/18 08/24/18 Rx Carvedilol [Coreg] 12.5 mg PO BID tablet 07/11/18 08/25/18 08/24/18 Rx Losartan [Cozaar] 25 mg PO QDAY tablet 07/11/18 08/25/18 08/24/18 Rx Torsemide [Demadex] 40 mg PO BID@0600,1800 tablet 07/11/18 08/25/18 08/24/18 Rx oxyCODONE [Roxicodone TAB] 10 mg PO Q6H PRN tablet 07/11/18 08/25/18 08/24/18 Rx Warfarin [Coumadin] 7.5 mg PO DAILY 08/25/18 08/25/18 08/24/18 History oxyCODONE /ACETAMINOPHEN [Percocet 1 tab PO Q6HR PRN #8 tablet 08/25/18 Unknown Rx 5/325] ED Physical Exam - General Limitations: No Limitations - Other Other exam information: General: No limitations, patient is alert in no acute distress Head exam: Atraumatic, normocephalic Eyes exam: Normal appearance, pupils equal reactive to light, extraocular movements intact ENT: Moist mucous membrane, normal oropharynx Neck exam: Normal inspection, full range of motion, no meningismus nontender Respiratory exam: Clear to auscultation bilateral, no wheezes, rales, crackles, chest wall nontender, AICD Cardiovascular: Normal rate and rhythm Abdomen: Soft, nondistended, and nontender, with normal bowel sounds, no rebound, or guarding Extremity: Full range of motion, significant bilateral leg edema right greater than left. Bilateral calf tenderness right greater than left. Back: Normal Inspection, full range of motion, no tenderness Neurologic: Alert, oriented x3, cranial nerves intact, no motor or sensory deficit Psychiatric: normal affect, normal mood Skin: Warm, dry, intact ED Course Vital Signs 11/04/18 11/04/18 11/04/18 20:04 20:11 21:40 Temperature 98.1 F 98.1 F Pulse Rate 82 99 H 75 Respiratory 22 18 Rate Blood Pressure 154/94 154/94 198/143 Blood Pressure [Right] O2 Sat by Pulse 98 98 Oximetry 11/04/18 11/04/18 11/04/18 21:46 23:57 23:58 Temperature Pulse Rate 73 73 Respiratory 18 21 21 Rate Blood Pressure Blood Pressure 198/143 155/116 [Right] O2 Sat by Pulse 98 96 98 Oximetry - Reevaluation(s) Reevaluation #1: 11/04/18 21:29 pt is not a candidate for ct scanner because he is over the max weight limit and cr is 2.0. pt exceeds wt limit for vq scanner as well. b/l dopper le pending SABRINA score - Sabrina Score Age > 65: (0) No Aspirin use within the Past 7 Days: (1) Yes 3 or more CAD Risk Factors: (1) Yes 2 or more Angina events in past 24 hrs: (0) No Known CAD with more than 50% Stenosis: (0) No Elevated Cardiac Markers: (0) No ST Deviation Greater than 0.5mm: (0) No SABRINA Score: 2 ED Medical Decision Making - Lab Data Result diagrams: 11/04/18 21:28 11/04/18 20:27 Lab Results 11/04/18 11/04/18 11/04/18 Range/Units 20:27 20:27 21:28 WBC 4.6 (4.5-11.0) K/mm3 RBC 5.28 H (3.65-5.03) M/mm3 Hgb 11.1 L (11.8-15.2) gm/dl Hct 38.1 (35.5-45.6) % MCV 72 L (84-94) fl MCH 21 L (28-32) pg MCHC 29 L (32-34) % RDW 24.1 H (13.2-15.2) % Plt Count 222 (140-440) K/mm3 PT 15.2 H (12.2-14.9) Sec. INR 1.13 (0.87-1.13) APTT 23.6 L (24.2-36.6) Sec. Sodium 135 L (137-145) mmol/L Potassium 4.6 (3.6-5.0) mmol/L Chloride 99.0 (98-107) mmol/L Carbon Dioxide 23 (22-30) mmol/L Anion Gap 18 mmol/L BUN 46 H (9-20) mg/dL Creatinine 2.0 H (0.8-1.5) mg/dL Estimated GFR 47 ml/min BUN/Creatinine Ratio 23 % Glucose 185 H (75-100) mg/dL Calcium 9.2 (8.4-10.2) mg/dL Troponin T 0.014 (0.00-0.029) ng/mL - EKG Data -: EKG Interpreted by Nh EKG shows normal: sinus rhythm, axis (qrs -8), QRS complexes (qrsd 131), ST-T waves (no stemi) Rate: normal (83) - EKG Data When compared to previous EKG there are: no significant change - Radiology Data Radiology results: report reviewed PROCEDURE: XR CHEST 1V AP TECHNIQUE: Chest radiograph single view. HISTORY: Chest Pain COMPARISONS: July 21, 2018 . FINDINGS: Heart: Moderate degree cardiomegaly is again noted. Mediastinum/Vessels: Normal. Lungs/Pleural space: Normal. Bony thorax: No acute osseous abnormality. Life support devices: A unipolar cardiac device is noted on the left side. IMPRESSION: Moderate degree cardiomegaly No acute pulmonary process. - Medical Decision Making pt has several cardiac is factors. Initial troponin negative. EKG unchanged. Plan to admit for further cardiac workup and evaluation Unable to obtained CT angiogram chest or PE study in the ED. Bilateral Dopplers pending Lovenox (120mg max dose given) for subtherapeutic INR on Coumadin. He states his INR was in therapeutic range when checked one week ago plan to admit for further tx - Differential Diagnosis unstable angina, PE, atypical chest pain, HI, unstable angina Critical Care Time: No Critical care attestation.: If time is entered above; I have spent that time in minutes in the direct care of this critically ill patient, excluding procedure time. ED Disposition Clinical Impression: Chest pain, T2DM (type 2 diabetes mellitus), Acute on chronic renal insufficiency, Lymphedema, Right leg pain, Hx of deep venous thrombosis, Subtherapeutic international normalized ratio (INR) Disposition: OP ADMIT IP TO THIS HOSP Is pt being admited?: Yes Condition: Stable Time of Disposition: 21:58 (DR Vasquez/hosp)
[2018-11-04 21:06] LABS: INR 1.13 (0.87-1.13)
[2018-11-04 21:07] LABS: Partial Thromboplastin Time 23.6 Sec. (24.2-36.6)
[2018-11-04 21:16] LABS: Calcium 9.2 mg/dL (8.4-10.2)
[2018-11-04] MEDS ORDERED: LOVENOX SUB-Q ONE ×3 (21:41→22:00)
--- NOTE | 2018-11-04 21:51 | XRay Report ---
PROCEDURE: XR CHEST 1V AP TECHNIQUE: Chest radiograph single view. HISTORY: Chest Pain COMPARISONS: July 21, 2018 . FINDINGS: Heart: Moderate degree cardiomegaly is again noted. Mediastinum/Vessels: Normal. Lungs/Pleural space: Normal. Bony thorax: No acute osseous abnormality. Life support devices: A unipolar cardiac device is noted on the left side. IMPRESSION: Moderate degree cardiomegaly No acute pulmonary process. This document is electronically signed by Giacomo San MD., November 04 2018 09:49:48 PM ET
[2018-11-04 21:54] LABS: Hematocrit 38.1 % (35.5-45.6); Hemoglobin 11.1 gm/dl (11.8-15.2); Mean Corpuscular HGB Conc 29 % (32-34); Mean Corpuscular Volume 72 fl (84-94); Red Blood Count 5.28 M/mm3 (3.65-5.03); Red Cell Distribution Width 24.1 % (13.2-15.2)
[2018-11-04 21:55] LABS: Platelet Count 222 K/mm3 (140-440)
[2018-11-04] MEDS ORDERED: PERCOCET 5/325 ONE ×2 (22:46→22:47)
[2018-11-04] MEDS ORDERED: PERCOCET 5/325 PO ONE (22:52)
[2018-11-04 22:54] LABS: Anisocytosis 1+; Basophils % (Manual) 0 % (0.0-1.8); Target Cells 1+; Total Cells Counted 100
[2018-11-04 22:55] LABS: Ovalocytes 1+; Tear Drop Cells Rare
[2018-11-04 22:56] LABS: Large Platelets 1+; Platelet Estimate Consistent w Auto
--- NOTE | 2018-11-04 23:02 | History and Physical Report ---
History of Present Illness Date of examination: 11/04/18 History of present illness: 33-year-old man with a history of hypertension, CHF, diabetes, coronary artery disease, history of DVT comes emergency room complaining of pain in his left chest which she describes as a sharp pain, constant, intensity 4/10, no radiatio n, relieved with nitroglycerin, cannot identify exacerbating factor, associated with left arm numbness. Admits to shortness of breath, no nausea vomiting, diaphoresis or palpitation. He had a cardiac cath last year which was normal. Also complain of right leg pain, states his INR was 2.5 last week, he is compliant with coumadin Review of systems Constitutional: no weight loss, chills Ears, eyes, nose, mouth and throat: no nasal congestion, no nasal discharge, no sinus pressure, no vision change, no red eye. Neck: No neck pain or rigidity. Cardiovascular: no palpitations Respiratory: No cough, +shortness of breath Gastrointestinal: no abdominal pain, hematochezia Genitourinary : no dysuria, frequency , no hematuria Musculoskeletal: no joint swelling or muscle ache Integumentary: no rash, no pruritis Neurological: no parathesias, no numbness, no focal weakness Endocrine: no cold or heat intolerance, no polyuria or polydipsia Hematologic/Lymphatic: no easy bruising, no easy bleeding, no gland swelling Allergic/Immunologic: no urticaria, no angioedema. PAST MEDICAL HISTORY: hypertension, CHF, diabetes, coronary artery disease, history of DVT PAST SURGICAL HISTORY: AICD SOCIAL HISTORY: Denies alcohol, tobacco, drugs FAMILY HISTORY: Hypertension Medications and Allergies Allergies Allergy/AdvReac Type Severity Reaction Status Date / Time prochlorperazine Allergy Hives Verified 04/14/18 12:13 [From Compazine] Home Medications Medication Instructions Recorded Confirmed Last Taken Type Metformin HCl 500 mg PO BID 10/18/17 11/05/18 11/04/18 History Aspirin EC [Aspirin Enteric Coated 81 mg PO DAILY tablet 07/11/18 11/05/18 11/04/18 Rx TAB] AtorvaSTATin [Lipitor] 40 mg PO QHS tablet 07/11/18 11/05/18 11/03/18 Rx Losartan [Cozaar] 25 mg PO QDAY tablet 07/11/18 11/05/18 11/04/18 Rx Torsemide [Demadex] 40 mg PO BID@0600,1800 tablet 07/11/18 11/05/18 11/04/18 Rx oxyCODONE [Roxicodone TAB] 10 mg PO Q6H PRN tablet 07/11/18 11/05/18 11/04/18 Rx Warfarin [Coumadin] 10 mg PO DAILY 08/25/18 11/05/18 11/04/18 History Carvedilol [Coreg] 25 mg PO BID 11/05/18 11/05/18 11/04/18 History Exam - Physical Exam Narrative exam: Gen. appearance: Patient lying in bed, no apparent distress HEENT: Normocephalic, atraumatic, pupils equally round and reactive to light, extraocular movement intact, and no sclericterus,. No JVD or thyromegaly or nodule,neck supple, no carotid bruit ,mucous membranes moist, no exudate or erythema Heart: S1, S2, regular rate and rhythm Lungs: Clear to auscultation bilaterally, breathing comfortable Abdomen: Positive bowel sounds, nontender, nondistended, no organomegaly Extremity: No edema, cyanosis, clubbing Skin: No rash, nodules, warm, dry Neuro: Oriented 3, cranial nerves II-12 intact, speech is fluent, motor and sensory intact - Constitutional Vitals: Temp Pulse Resp BP Pulse Ox 98.1 F 73 18 198/143 98 11/04/18 20:11 11/04/18 21:46 11/04/18 21:46 11/04/18 21:46 11/04/18 21:46 Results - Labs CBC & Chem 7: 11/04/18 21:28 11/04/18 20:27 Labs: Abnormal lab results 11/04/18 11/04/18 11/04/18 Range/Units 20:27 20:27 21:28 RBC 5.28 H (3.65-5.03) M/mm3 Hgb 11.1 L (11.8-15.2) gm/dl MCV 72 L (84-94) fl MCH 21 L (28-32) pg MCHC 29 L (32-34) % RDW 24.1 H (13.2-15.2) % Lymphocytes % (Manual) 40.0 H (13.4-35.0) % Monocytes % (Manual) 16.0 H (0.0-7.3) % Nucleated RBC % 1.0 H (0.0-0.9) % PT 15.2 H (12.2-14.9) Sec. APTT 23.6 L (24.2-36.6) Sec. Sodium 135 L (137-145) mmol/L BUN 46 H (9-20) mg/dL Creatinine 2.0 H (0.8-1.5) mg/dL Glucose 185 H (75-100) mg/dL - Imaging and Cardiology EKG: image reviewed Chest x-ray: report reviewed Assessment and Plan Assessment Unstable angina Right leg pain Coronary artery disease. CHF, stable Hypertension Diabetes CKD Morbid obesity History of DVT with subtherapeutic INR Plan Admit medicine Check cardiac enzymes, consult cardiology Check Doppler of the lower extremity Status post 180 mg of Lovenox, start heparin drip in the morning Give a dose of Coumadin tonight, check PT/INR Check fingersticks and initiate insulin sliding scale,percocet for pain Continue appropriate outpatient medications DVT prophylaxis
[2018-11-04] MEDS ORDERED: D50W (25GM) Syringe IV PRN (23:08)
[2018-11-04] MEDS ORDERED: PERCOCET 5/325 PO PRN (23:08)
[2018-11-04] MEDS ORDERED: ZOFRAN IV PRN (23:08)
[2018-11-04] MEDS ORDERED: TYLENOL PO PRN (23:08)
[2018-11-04] MEDS ORDERED: SODIUM CHLORIDE FLUSH SYRINGE 10 ML IV PRN (23:08)
[2018-11-05] MEDS ORDERED: COUMADIN PO ONE
[2018-11-05] MEDS ORDERED: APRESOLINE IV PRN ×2 (00:28→05:00)
[2018-11-05 01:48] LABS: Bilirubin,Urine NEG (Negative); Blood,Urine NEG (Negative); Color,Urine Yellow (Yellow); Mucus,Urine FEW /HPF; Protein,Urine <15 mg/dL mg/dL (Negative)
[2018-11-05] MEDS: ROXICODONE PO PRN ×3 (04:40→17:52)
[2018-11-05 07:14] LABS: Mean Corpuscular HGB Conc 30 % (32-34); Mean Corpuscular Volume 72 fl (84-94); Platelet Count 220 K/mm3 (140-440); Red Blood Count 5.35 M/mm3 (3.65-5.03)
[2018-11-05 07:18] LABS: BUN/Creatinine Ratio 29; Blood Urea Nitrogen 43 mg/dL (9-20); Hemolysis Index 94
[2018-11-05 07:22] LABS: Hematocrit 38.4 % (35.5-45.6); Hemoglobin 11.3 gm/dl (11.8-15.2); Red Cell Distribution Width 23.7 % (13.2-15.2)
[2018-11-05 07:43] LABS: INR 1.23 (0.87-1.13)
[2018-11-05 07:52] LABS: Partial Thromboplastin Time 67.6 Sec. (24.2-36.6)
[2018-11-05 09:16] LABS: Anisocytosis 2+; Hypochromasia 2+; Poikilocytosis 1+; Total Cells Counted 100
[2018-11-05 09:18] LABS: Ovalocytes Few; Platelet Estimate Consistent w Auto
[2018-11-05] MEDS: HumaLOG SUB-Q SCH ×4 (09:49→22:00)
[2018-11-05] MEDS: COZAAR PO SCH (10:03)
[2018-11-05] MEDS: HALFPRIN EC PO SCH (10:03)
[2018-11-05] MEDS: COREG PO SCH ×2 (10:04→21:28)
[2018-11-05] MEDS: SODIUM CHLORIDE FLUSH SYRINGE 10 ML IV SCH ×2 (10:21→21:29)
--- NOTE | 2018-11-05 14:26 | Consultation ---
History of Present Illness Consult date: 11/05/18 Requesting physician: TACHO SOMMERS Consult reason: chest pain, other (cad) History of present illness: The pt is a 33 YO male with a past medical history significant for chronic systolic heart failure, dilated NICMP, AICD in situ, frequent PVCs and NSVT, HTN, DM, RLE DVT, anticoagulated with coumadin, morbid obesity, lymphedema. He has been seen by our practice on prior hospitalizations and follows at [facility]. He presented with c/o chest pain and SOB and RLE pain which began while he was exercising at a gym yesterday around 11AM. He describes his chest pain as a midsternal aching pain. He denies any SOB, n/v, diaphoresis, dizziness or syncope. Pt underwent LHC and RHC at [place] on 10/24/2017 which showed angiographically normal coronary arteries, normal right-sided filling pressures with a mean RA pressure of 5 mmHg, mildly elevated pulmonary artery pressures with a mean PA pressure of 27 mmHg and PA pressure was 38/16mmHG, mildly elevated left-sided filling pressures with a mean PCWP of 18 mmHg with a directly measured LVEDP of 20 mmHg, normal cardiac output with a CO of 5.74 L/min with a cardiac index of 1.82 L/min/m2 using a the Albaro equation. Echo done in 02/18/2018 at [place] showed EF 10-15%, LV severely dilated, LA severely dilated, mod TR, grade 2 diastolic dysfunction, mod MR, mod reduced RV systolic function, RVSP 25.2mmHg. Past History Past Medical History: other (as per hpi) Medications and Allergies Allergies Allergy/AdvReac Type Severity Reaction Status Date / Time prochlorperazine Allergy Hives Verified 04/14/18 12:13 [From Compazine] Home Medications Medication Instructions Recorded Confirmed Last Taken Type Metformin HCl 500 mg PO BID 10/18/17 11/05/18 11/04/18 History Aspirin EC [Aspirin Enteric Coated 81 mg PO DAILY tablet 07/11/18 11/05/18 11/04/18 Rx TAB] AtorvaSTATin [Lipitor] 40 mg PO QHS tablet 07/11/18 11/05/18 11/03/18 Rx Losartan [Cozaar] 25 mg PO QDAY tablet 1211/05/18 11/04/18 Rx Torsemide [Demadex] 40 mg PO BID@0600,1800 tablet 07/11/18 11/05/18 11/04/18 Rx oxyCODONE [Roxicodone TAB] 10 mg PO Q6H PRN tablet 07/11/18 11/05/18 11/04/18 Rx Warfarin [Coumadin] 10 mg PO DAILY 08/25/18 11/05/18 11/04/18 History Carvedilol [Coreg] 25 mg PO BID 11/05/18 11/05/18 11/04/18 History Active Meds: Active Medications Acetaminophen (Tylenol) 650 mg PO Q4H PRN PRN Reason: Pain MILD(1-3)/Fever >100.5/ROBERSON Aspirin (Halfprin Ec) 81 mg PO DAILY [facility] Last Admin: 11/05/18 10:03 Dose: 81 mg Documented by: Atorvastatin Calcium (Lipitor) 40 mg PO QHS [facility] Carvedilol (Coreg) 25 mg PO BID [facility] Last Admin: 11/05/18 10:04 Dose: 25 mg Documented by: Dextrose (D50w (25gm) Syringe) 50 ml IV PRN PRN PRN Reason: Hypoglycemia Hydralazine HCl (Apresoline) 5 mg IV Q6H PRN PRN Reason: For Sys BP >175 Insulin Human Lispro (Humalog) 0 unit SUB-Q ACHS [facility]; Protocol Last Admin: 11/05/18 09:49 Dose: Not Given Documented by: Losartan Potassium (Cozaar) 25 mg PO QDAY [facility] Last Admin: 11/05/18 10:03 Dose: 25 mg Documented by: Metformin HCl (Glucophage) 500 mg PO BIDDIAB [facility] Ondansetron HCl (Zofran) 4 mg IV Q8H PRN PRN Reason: Nausea And Vomiting Oxycodone HCl (Roxicodone) 10 mg PO Q6H PRN PRN Reason: Pain, Severe (7-10) Last Admin: 11/05/18 11:09 Dose: 10 mg Documented by: Sodium Chloride (Sodium Chloride Flush Syringe 10 Ml) 10 ml IV BID [facility] Last Admin: 11/05/18 10:21 Dose: 10 ml Documented by: Sodium Chloride (Sodium Chloride Flush Syringe 10 Ml) 10 ml IV PRN PRN PRN Reason: LINE FLUSH Warfarin Sodium (Coumadin) 10 mg PO DAILY@1700 [facility] Review of Systems Constitutional: no fever, no chills, no sweats Ears, nose, mouth and throat: no ear pain, no nose pain, no sinus pressure, no sinus pain Cardiovascular: chest pain, shortness of breath, dyspnea on exertion, leg edema, no orthopnea, no palpitations, no rapid/irregular heart beat, no edema, no syncope, no lightheadedness Respiratory: shortness of breath, dyspnea on exertion, no cough, no congestion, no wheezing, no pain on inspiration Gastrointestinal: no abdominal pain, no nausea, no vomiting, no diarrhea, no constipation, no change in bowel habits Genitourinary Male: no dysuria, no hematuria, no flank pain, no discharge, no urinary frequency, no urinary hesitancy Musculoskeletal: no neck stiffness, no neck pain, no shooting arm pain, no arm numbness/tingling, no low back pain Integumentary: no rash, no pruritis, no redness, no sores, no wounds Neurological: no head injury, no paralysis, no weakness, no parathesias, no numbness, no tingling, no seizures, no syncope Psychiatric: no anxiety Endocrine: no cold intolerance, no heat intolerance Hematologic/Lymphatic: no easy bruising, no easy bleeding Allergic/Immunologic: no urticaria, no wheezing Physical Examination Vital Signs Temp Pulse Resp BP Pulse Ox 98.1 F 82 22 154/94 98 11/04/18 20:04 11/04/18 20:04 11/04/18 20:04 11/04/18 20:04 11/04/18 20:04 General appearance: no acute distress HEENT: Positive: PERRL, Normocephaly, Mucus Membranes Moist Neck: Positive: neck supple, trachea midline Cardiac: Positive: Reg Rate and Rhythm, S1/S2 Lungs: Positive: Decreased Breath Sounds Neuro: Positive: Grossly Intact Abdomen: Negative: Tender Skin: Negative: Rash, Wound Extremities: Present: +2 Edema (BLE chronic lymphedema) Results 11/05/18 06:20 11/05/18 06:20 Coagulation 11/04/18 11/05/18 Range/Units 20:27 06:20 PT 15.2 H 16.3 H (12.2-14.9) Sec. INR 1.13 1.23 H (0.87-1.13) APTT 23.6 L 67.6 H* (24.2-36.6) Sec. CBC 11/04/18 11/05/18 Range/Units 21:28 06:20 WBC 4.6 5.4 (4.5-11.0) K/mm3 RBC 5.28 H 5.35 H (3.65-5.03) M/mm3 Hgb 11.1 L 11.3 L (11.8-15.2) gm/dl Hct 38.1 38.4 (35.5-45.6) % Plt Count 222 220 (140-440) K/mm3 Comprehensive Metabolic Panel 11/04/18 11/05/18 Range/Units 20:27 06:20 Sodium 135 L 135 L (137-145) mmol/L Potassium 4.6 5.3 H (3.6-5.0) mmol/L Chloride 99.0 99.4 (98-107) mmol/L Carbon Dioxide 23 24 (22-30) mmol/L BUN 46 H 43 H (9-20) mg/dL Creatinine 2.0 H 1.5 (0.8-1.5) mg/dL Glucose 185 H 105 H (75-100) mg/dL Calcium 9.2 9.0 (8.4-10.2) mg/dL - Imaging and Cardiology Echo: report reviewed (02/18/2018 at [place] showed EF 10-15%, LV severely dilated, LA severely dilated, mod TR, grade 2 diastolic dysfunction, mod MR, mod reduced RV systolic function, RVSP 25.2mmHg. ) Cardiac cath: report reviewed (LHC and RHC at [place] on 10/24/2017 which showed angiographically normal coronary arteries, normal right-sided filling pressures with a mean RA pressure of 5 mmHg, mildly elevated pulmonary artery pressures with a mean PA pressure of 27 mmHg and PA pressure was 38/16mmHG, mildly elevated left-sided filling pressures with a mean PCWP of 18 mmHg with a di rectly measured LVEDP of 20 mmHg, normal cardiac output with a CO of 5.74 L/min with a cardiac index of 1.82 L/min/m2 using a the Albaro equation.) EKG: report reviewed, image reviewed EKG interpretations - Telemetry EKG Rhythm: Sinus Rhythm - EKG Sinus rhythms and dysrhythmias: sinus rhythm Assessment and Plan Atypical chest pain ECG with no acute ischemic changes. Trop negative for AMI x 1, cont to trend Nicol. Repeat ECG in AM. [facility] and RHC at [place] on 10/24/2017 showed angiographically normal coronary arteries. Optimize anti-ischemic regimen. No plans for repeat ischemic evaluation at this time. Chronic heart failure with reduced EF No current clinical evidence of acute exacerbation. Cont home cardiac regimen. Dilated NICMP - EF 10-15% Cont GDMT as tolerated. AICD in situ Acute on chronic RLE DVT / subtherapeutic INR Coumadin and lovenox per primary Frequent PVCs and NSVT LBBB HTN DM Morbid obesity pt considering gastric bypass surgery Lymphedema The patient has been seen in conjunction with Dr. Marquez who agrees with the assessment and plan of care.
--- NOTE | 2018-11-05 16:53 | Progress Note ---
Assessment and Plan Assessment and plan: Chest pain, Cardiology following Continue Aspirin, Coreg,Lipitor Hyperkalemia Give Insulin, repeat Chronic systolic heart failure. EF 10-15% Continue Lasix, Coreg NICM s/p AICD placement Hypertension. Monitor BP Diabetes mellitus type 2. Fingerstick qac and hs Chronic DVT lower ext On Coumadin INR subtherapeutic Morbid Obesity. Counseled on diet, exercise Full code status History Interval history: Left sided chest pain Hospitalist Physical - Physical exam Narrative exam: GEN: Not in acute distress, morbidly obese HEENT: Normocephalic, atraumatic, Neck: supple, No JVD Lungs: Clear, no crackles Heart:S1 and S2 regular, no murmurs, rubs or gallop, Abd:soft, non-tender, non-distended, normal bowel sounds Ext: Bilateral lower ext edema, Neuro: AAO x 3, Moves all ext, normal speech, - Constitutional Vitals: Temp Pulse Resp BP Pulse Ox 98.2 F 71 20 118/70 98 11/05/18 16:17 11/05/18 16:17 11/05/18 16:17 11/05/18 16:17 11/05/18 16:17 General appearance: Present: no acute distress Results - Labs CBC & Chem 7: 11/05/18 06:20 11/05/18 06:20 Labs: Laboratory Last Values WBC 5.4 K/mm3 (4.5-11.0) 11/05/18 06:20 RBC 5.35 M/mm3 (3.65-5.03) H 11/05/18 06:20 Hgb 11.3 gm/dl (11.8-15.2) L 11/05/18 06:20 Hct 38.4 % (35.5-45.6) 11/05/18 06:20 MCV 72 fl (84-94) L 11/05/18 06:20 MCH 21 pg (28-32) L 11/05/18 06:20 MCHC 30 % (32-34) L 11/05/18 06:20 RDW 23.7 % (13.2-15.2) H 11/05/18 06:20 Plt Count 220 K/mm3 (140-440) 11/05/18 06:20 Add Manual Diff Complete 11/05/18 06:20 Total Counted 100 11/05/18 06:20 Seg Neuts % (Manual) 40.0 % (40.0-70.0) 11/05/18 06:20 Band Neutrophils % 0 % 11/05/18 06:20 Lymphocytes % (Manual) 50.0 % (13.4-35.0) H 11/05/18 06:20 Reactive Lymphs % (Man) 3.0 % 11/05/18 06:20 Monocytes % (Manual) 5.0 % (0.0-7.3) 11/05/18 06:20 Eosinophils % (Manual) 1.0 % (0.0-4.3) 11/05/18 06:20 Basophils % (Manual) 1.0 % (0.0-1.8) 11/05/18 06:20 Metamyelocytes % 0 % 11/05/18 06:20 Myelocytes % 0 % 11/05/18 06:20 Promyelocytes % 0 % 11/05/18 06:20 Blast Cells % 0 % 11/05/18 06:20 Nucleated RBC % Not Reportable 11/05/18 06:20 Seg Neutrophils # Man 2.2 K/mm3 (1.8-7.7) 11/05/18 06:20 Band Neutrophils # 0.0 K/mm3 11/05/18 06:20 Lymphocytes # (Manual) 2.7 K/mm3 (1.2-5.4) 11/05/18 06:20 Abs React Lymphs (Man) 0.2 K/mm3 11/05/18 06:20 Monocytes # (Manual) 0.3 K/mm3 (0.0-0.8) 11/05/18 06:20 Eosinophils # (Manual) 0.1 K/mm3 (0.0-0.4) 11/05/18 06:20 Basophils # (Manual) 0.1 K/mm3 (0.0-0.1) 11/05/18 06:20 Metamyelocytes # 0.0 K/mm3 11/05/18 06:20 Myelocytes # 0.0 K/mm3 11/05/18 06:20 Promyelocytes # 0.0 K/mm3 11/05/18 06:20 Blast Cells # 0.0 K/mm3 11/05/18 06:20 WBC Morphology Not Reportable 11/05/18 06:20 Hypersegmented Neuts Not Reportable 11/05/18 06:20 Hyposegmented Neuts Not Reportable 11/05/18 06:20 Hypogranular Neuts Not Reportable 11/05/18 06:20 Smudge Cells Not Reportable 11/05/18 06:20 Toxic Granulation Not Reportable 11/05/18 06:20 Toxic Vacuolation Not Reportable 11/05/18 06:20 Dohle Bodies Not Reportable 11/05/18 06:20 Pelger-Huet Anomaly Not Reportable 11/05/18 06:20 Leslie Rods Not Reportable 11/05/18 06:20 Platelet Estimate Consistent w auto 11/05/18 06:20 Clumped Platelets Not Reportable 11/05/18 06:20 Plt Clumps, EDTA Not Reportable 11/05/18 06:20 Large Platelets Not Reportable 11/05/18 06:20 Giant Platelets Not Reportable 11/05/18 06:20 Platelet Satelliting Not Reportable 11/05/18 06:20 Plt Morphology Comment Not Reportable 11/05/18 06:20 RBC Morphology Not Reportable 11/05/18 06:20 Dimorphic RBCs Not Reportable 11/05/18 06:20 Polychromasia Not Reportable 11/05/18 06:20 Hypochromasia 2+ 11/05/18 06:20 Poikilocytosis 1+ 11/05/18 06:20 Anisocytosis 2+ 11/05/18 06:20 Microcytosis Not Reportable 11/05/18 06:20 Macrocytosis Not Reportable 11/05/18 06:20 Spherocytes Not Reportable 11/05/18 06:20 Pappenheimer Bodies Not Reportable 11/05/18 06:20 Sickle Cells Not Reportable 11/05/18 06:20 Target Cells Not Reportable 11/05/18 06:20 Tear Drop Cells Not Reportable 11/05/18 06:20 Ovalocytes Few 11/05/18 06:20 Helmet Cells Not Reportable 11/05/18 06:20 [place] Bodies Not Reportable 11/05/18 06:20 [place] Rings Not Reportable 11/05/18 06:20 [place] Cells Not Reportable 11/05/18 06:20 Bite Cells Not Reportable 11/05/18 06:20 Crenated Cell Not Reportable 11/05/18 06:20 Elliptocytes Few 11/05/18 06:20 Acanthocytes (Spur) Few 11/05/18 06:20 Rouleaux Not Reportable 11/05/18 06:20 Hemoglobin C Crystals Not Reportable 11/05/18 06:20 Schistocytes Not Reportable 11/05/18 06:20 Malaria parasites Not Reportable 11/05/18 06:20 Cliff Bodies Not Reportable 11/05/18 06:20 Hem Pathologist Commnt No 11/05/18 06:20 PT 16.3 Sec. (12.2-14.9) H 11/05/18 06:20 INR 1.23 (0.87-1.13) H 11/05/18 06:20 APTT 67.6 Sec. (24.2-36.6) H* 11/05/18 06:20 Sodium 135 mmol/L (137-145) L 11/05/18 06:20 Potassium 5.3 mmol/L (3.6-5.0) H 11/05/18 06:20 Chloride 99.4 mmol/L (98-107) 11/05/18 06:20 Carbon Dioxide 24 mmol/L (22-30) 11/05/18 06:20 Anion Gap 17 mmol/L 11/05/18 06:20 BUN 43 mg/dL (9-20) H 11/05/18 06:20 Creatinine 1.5 mg/dL (0.8-1.5) 11/05/18 06:20 Estimated GFR > 60 ml/min 11/05/18 06:20 BUN/Creatinine Ratio 29 % 11/05/18 06:20 Glucose 105 mg/dL (75-100) H 11/05/18 06:20 POC Glucose 165 (70-105) H 11/05/18 16:24 Calcium 9.0 mg/dL (8.4-10.2) 11/05/18 06:20 Troponin T 0.011 ng/mL (0.00-0.029) 11/04/18 22:48 Urine Color Yellow (Yellow) 11/05/18 00:42 Urine Turbidity Clear (Clear) 11/05/18 00:42 Urine pH 6.0 (5.0-7.0) 11/05/18 00:42 Ur Specific [place] 1.030 (1.003-1.030) 11/05/18 00:42 Urine Protein <15 mg/dl mg/dL (Negative) 11/05/18 00:42 Urine Glucose (UA) Neg mg/dL (Negative) 11/05/18 00:42 Urine Ketones Neg mg/dL (Negative) 11/05/18 00:42 Urine Blood Neg (Negative) 11/05/18 00:42 Urine Nitrite Neg (Negative) 11/05/18 00:42 Urine Bilirubin Neg (Negative) 11/05/18 00:42 Urine Urobilinogen 2.0 mg/dL (<2.0) 11/05/18 00:42 Ur Leukocyte Esterase Neg (Negative) 11/05/18 00:42 Urine WBC (Auto) 1.0 /HPF (0.0-6.0) 11/05/18 00:42 Urine RBC (Auto) 2.0 /HPF (0.0-6.0) 11/05/18 00:42 U Epithel Cells (Auto) < 1.0 /HPF (0-13.0) 11/05/18 00:42 Urine Mucus Few /HPF 11/05/18 00:42 Active Medications - Current Medications Current Medications: Generic Name Dose Route Start Last Admin Trade Name Freq PRN Reason Stop Dose Admin Acetaminophen 650 mg 11/04/18 23:08 Tylenol PO Q4H PRN Pain MILD(1-3)/Fever >100.5/ROBERSON Aspirin 81 mg 11/05/18 10:00 11/05/18 10:03 Halfprin Ec PO 81 mg DAILY CODY Administration Atorvastatin Calcium 40 mg 11/05/18 22:00 Lipitor PO QHS CODY Carvedilol 25 mg 11/05/18 10:00 11/05/18 10:04 Coreg PO 25 mg BID CODY Administration Dextrose 50 ml 11/04/18 23:08 D50w (25gm) Syringe IV PRN PRN Hypoglycemia Hydralazine HCl 5 mg 11/05/18 05:00 Apresoline IV Q6H PRN For Sys BP >175 Insulin Human Lispro 0 unit 11/05/18 07:30 11/05/18 09:49 Humalog SUB-Q Not Given ACHS [facility] Protocol Losartan Potassium 25 mg 11/05/18 10:00 11/05/18 10:03 Cozaar PO 25 mg QDAY C[facility] Administration Metformin HCl 500 mg 11/05/18 17:00 Glucophage PO BIDDIAB CODY Ondansetron HCl 4 mg 11/04/18 23:08 Zofran IV Q8H PRN Nausea And Vomiting Oxycodone HCl 10 mg 11/05/18 04:25 11/05/18 11:09 Roxicodone PO 10 mg Q6H PRN Administration Pain, Severe (7-10) Sodium Chloride 10 ml 11/05/18 10:00 11/05/18 10:21 Sodium Chloride Flush Syringe 10 Ml IV 10 ml BID CODY Administration Sodium Chloride 10 ml 11/04/18 23:08 Sodium Chloride Flush Syringe 10 Ml IV PRN PRN LINE FLUSH Warfarin Sodium 10 mg 11/06/18 17:00 Coumadin PO DAILY@1700 [facility]
--- NOTE | 2018-11-05 16:58 | Vascular Lab Report ---
PROCEDURE: VL VENOUS DUPLEX LE BILAT TECHNIQUE: Duplex Doppler ultrasound examination of the venous system of the right leg and left leg HISTORY: b/l calf pain, right>left (hx of chronic R dvt) COMPARISONS: 09/02/2018 FINDINGS: RIGHT LEG: Normal compressibility, vascular patency, and augmentation are present diffusely throughout the visua lized portion of the deep veins. No abnormal intraluminal echoes are visualized to suggest deep vein thrombus. Body habitus limits the examination IMPRESSION: No ultrasound evidence of DVT in the right leg LEFT LEG: Normal compressibility, vascular patency, and augmentation are present diffusely throughout the visua lized portion of the deep veins. No abnormal intraluminal echoes are visualized to suggest deep vein thrombus. Body habitus limits the examination IMPRESSION: No ultrasound evidence of DVT in the left leg This document is electronically signed by Kyle Bass MD., November 05 2018 04:56:55 PM ET
[2018-11-05] MEDS ORDERED: GLUCOPHAGE PO SCH (17:00)
[2018-11-05 19:14] LABS: BUN/Creatinine Ratio 24; Blood Urea Nitrogen 36 mg/dL (9-20); Hemolysis Index 117
[2018-11-05] MEDS: MORPHINE IV PRN (22:28)
[2018-11-06] MEDS: KIONEX PO SCH ×2 (00:53→06:31)
[2018-11-06] MEDS: ROXICODONE PO PRN ×3 (00:54→16:30)
[2018-11-06] MEDS: MORPHINE IV PRN ×2 (03:46→09:46)
[2018-11-06] MEDS ORDERED: D50W (25GM) Vial IV ONE (07:49)
[2018-11-06] MEDS ORDERED: HumuLIN R IV ONE (08:30)
[2018-11-06] MEDS ORDERED: D50W (25GM) Syringe IV ONE (08:30)
[2018-11-06] MEDS: HumaLOG SUB-Q SCH ×2 (08:47→12:32)
[2018-11-06 09:27] LABS: INR 1.3 (0.87-1.13)
[2018-11-06] MEDS: COREG PO SCH (09:46)
[2018-11-06] MEDS: HALFPRIN EC PO SCH (09:46)
[2018-11-06] MEDS: SODIUM CHLORIDE FLUSH SYRINGE 10 ML IV SCH (09:47)
[2018-11-06] MEDS: COZAAR PO SCH (09:51)
--- NOTE | 2018-11-06 12:15 | Progress Note ---
Assessment and Plan Atypical chest pain Currently resolved. ECG with no acute ischemic changes. LHC and RHC at [place] on 10/24/2017 showed angiographically normal coronary arteries. Cont home cardiac regimen. No plans for repeat ischemic evaluation at this time. Chronic heart failure with reduced EF No current clinical evidence of acute exacerbation. Cont home cardiac regimen. Dilated NICMP - EF 10-15% Cont GDMT as tolerated. AICD in situ Acute on chronic RLE DVT / subtherapeutic INR Coumadin and lovenox per primary Frequent PVCs and NSVT LBBB HTN DM Morbid obesity pt considering gastric bypass surgery Lymphedema Hyperkalemia S/p Kionex. Monitor BMP. Currently stable cardiac status. Pt may discharge home from cardiology standpoint on home cardiac regimen. Recommend pt follow up with his primary suede brusher at [place] within 1-2 weeks of hospital discharge. Pt verbalizes understanding. The patient has been seen in conjunction with Dr. Marquez who agrees with the assessment and plan of care. Subjective Date of service: 11/06/18 Principal diagnosis: cp Interval history: pt resting comfortably in bed, states chest pain has resolved. c/o BLE pain. in SR with freq PVCs on telemetry. Objective Last Vital Signs Temp 98.0 F 11/06/18 04:21 Pulse 72 11/06/18 04:21 Resp 14 11/06/18 10:16 BP 122/74 11/06/18 04:21 Pulse Ox 97 11/06/18 04:21 - Physical Examination General: No Apparent Distress HEENT: Positive: PERRL, Normocephaly, Mucus Membranes Moist Neck: Positive: neck supple, trachea midline Cardiac: Positive: Reg Rate and Rhythm, S1/S2 Lungs: Positive: Decreased Breath Sounds Neuro: Positive: Grossly Intact Abdomen: Negative: Tender Skin: Negative: Rash, Wound Extremities: Present: +2 Edema (BLE chronic lymphedema) - Labs and Meds Coagulation 11/06/18 Range/Units 08:53 PT 17.0 H (12.2-14.9) Sec. INR 1.30 H (0.87-1.13) Comprehensive Metabolic Panel 11/05/18 Range/Units 18:11 Sodium 136 L (137-145) mmol/L Potassium 5.4 H (3.6-5.0) mmol/L Chloride 97.4 L (98-107) mmol/L Carbon Dioxide 22 (22-30) mmol/L BUN 36 H (9-20) mg/dL Creatinine 1.5 (0.8-1.5) mg/dL Glucose 167 H (75-100) mg/dL Calcium 9.0 (8.4-10.2) mg/dL - Imaging and Cardiology EKG: report reviewed, image reviewed Echo: report reviewed (02/18/2018 at [place] showed EF 10-15%, LV severely dilated, LA severely dilated, mod TR, grade 2 diastolic dysfunction, mod MR, mod reduced RV systolic function, RVSP 25.2mmHg. ) Cardiac cath: report reviewed (LHC and RHC at [place] on 10/24/2017 which showed angiographically normal coronary arteries, normal right-sided filling pressures with a mean RA pressure of 5 mmHg, mildly elevated pulmonary artery pressures with a mean PA pressure of 27 mmHg and PA pressure was 38/16mmHG, mildly elevated left-sided filling pressures with a mean PCWP of 18 mmHg with a directly measured LVEDP of 20 mmHg, normal cardiac output with a CO of 5.74 L/min with a cardiac index of 1.82 L/min/m2 using a the Albaro equation.) - EKG Sinus rhythms and dysrhythmias: sinus rhythm
--- NOTE | 2018-11-06 12:42 | Progress Note ---
Hospitalist Physical - Constitutional Vitals: Temp Pulse Resp BP Pulse Ox 98.0 F 80 14 122/74 97 11/06/18 04:21 11/06/18 08:00 11/06/18 10:16 11/06/18 04:21 11/06/18 04:21 General appearance: Present: no acute distress Results - Labs CBC & Chem 7: 11/05/18 06:20 11/05/18 18:11 Labs: Laboratory Last Values WBC 5.4 K/mm3 (4.5-11.0) 11/05/18 06:20 RBC 5.35 M/mm3 (3.65-5.03) H 11/05/18 06:20 Hgb 11.3 gm/dl (11.8-15.2) L 11/05/18 06:20 Hct 38.4 % (35.5-45.6) 11/05/18 06:20 MCV 72 fl (84-94) L 11/05/18 06:20 MCH 21 pg (28-32) L 11/05/18 06:20 MCHC 30 % (32-34) L 11/05/18 06:20 RDW 23.7 % (13.2-15.2) H 11/05/18 06:20 Plt Count 220 K/mm3 (140-440) 11/05/18 06:20 Add Manual Diff Complete 11/05/18 06:20 Total Counted 100 11/05/18 06:20 Seg Neuts % (Manual) 40.0 % (40.0-70.0) 11/05/18 06:20 Band Neutrophils % 0 % 11/05/18 06:20 Lymphocytes % (Manual) 50.0 % (13.4-35.0) H 11/05/18 06:20 Reactive Lymphs % (Man) 3.0 % 11/05/18 06:20 Monocytes % (Manual) 5.0 % (0.0-7.3) 11/05/18 06:20 Eosinophils % (Manual) 1.0 % (0.0-4.3) 11/05/18 06:20 Basophils % (Manual) 1.0 % (0.0-1.8) 11/05/18 06:20 Metamyelocytes % 0 % 11/05/18 06:20 Myelocytes % 0 % 11/05/18 06:20 Promyelocytes % 0 % 11/05/18 06:20 Blast Cells % 0 % 11/05/18 06:20 Nucleated RBC % Not Reportable 11/05/18 06:20 Seg Neutrophils # Man 2.2 K/mm3 (1.8-7.7) 11/05/18 06:20 Band Neutrophils # 0.0 K/mm3 11/05/18 06:20 Lymphocytes # (Manual) 2.7 K/mm3 (1.2-5.4) 11/05/18 06:20 Abs React Lymphs (Man) 0.2 K/mm3 11/05/18 06:20 Monocytes # (Manual) 0.3 K/mm3 (0.0-0.8) 11/05/18 06:20 Eosinophils # (Manual) 0.1 K/mm3 (0.0-0.4) 11/05/18 06:20 Basophils # (Manual) 0.1 K/mm3 (0.0-0.1) 11/05/18 06:20 Metamyelocytes # 0.0 K/mm3 11/05/18 06:20 Myelocytes # 0.0 K/mm3 11/05/18 06:20 Promyelocytes # 0.0 K/mm3 11/05/18 06:20 Blast Cells # 0.0 K/mm3 11/05/18 06:20 WBC Morphology Not Reportable 11/05/18 06:20 Hypersegmented Neuts Not Reportable 11/05/18 06:20 Hyposegmented Neuts Not Reportable 11/05/18 06:20 Hypogranular Neuts Not Reportable 11/05/18 06:20 Smudge Cells Not Reportable 11/05/18 06:20 Toxic Granulation Not Reportable 11/05/18 06:20 Toxic Vacuolation Not Reportable 11/05/18 06:20 Dohle Bodies Not Reportable 11/05/18 06:20 Pelger-Huet Anomaly Not Reportable 11/05/18 06:20 Leslie Rods Not Reportable 11/05/18 06:20 Platelet Estimate Consistent w auto 11/05/18 06:20 Clumped Platelets Not Reportable 11/05/18 06:20 Plt Clumps, EDTA Not Reportable 11/05/18 06:20 Large Platelets Not Reportable 11/05/18 06:20 Giant Platelets Not Reportable 11/05/18 06:20 Platelet Satelliting Not Reportable 11/05/18 06:20 Plt Morphology Comment Not Reportable 11/05/18 06:20 RBC Morphology Not Reportable 11/05/18 06:20 Dimorphic RBCs Not Reportable 11/05/18 06:20 Polychromasia Not Reportable 11/05/18 06:20 Hypochromasia 2+ 11/05/18 06:20 Poikilocytosis 1+ 11/05/18 06:20 Anisocytosis 2+ 11/05/18 06:20 Microcytosis Not Reportable 11/05/18 06:20 Macrocytosis Not Reportable 11/05/18 06:20 Spherocytes Not Reportable 11/05/18 06:20 Pappenheimer Bodies Not Reportable 11/05/18 06:20 Sickle Cells Not Reportable 11/05/18 06:20 Target Cells Not Reportable 11/05/18 06:20 Tear Drop Cells Not Reportable 11/05/18 06:20 Ovalocytes Few 11/05/18 06:20 Helmet Cells Not Reportable 11/05/18 06:20 [place] Bodies Not Reportable 11/05/18 06:20 [place] Rings Not Reportable 11/05/18 06:20 [place] Cells Not Reportable 11/05/18 06:20 Bite Cells Not Reportable 11/05/18 06:20 Crenated Cell Not Reportable 11/05/18 06:20 Elliptocytes Few 11/05/18 06:20 Acanthocytes (Spur) Few 11/05/18 06:20 Rouleaux Not Reportable 11/05/18 06:20 Hemoglobin C Crystals Not Reportable 11/05/18 06:20 Schistocytes Not Reportable 11/05/18 06:20 Malaria parasites Not Reportable 11/05/18 06:20 Cliff Bodies Not Reportable 11/05/18 06:20 Hem Pathologist Commnt No 11/05/18 06:20 PT 17.0 Sec. (12.2-14.9) H 11/06/18 08:53 INR 1.30 (0.87-1.13) H 11/06/18 08:53 APTT 67.6 Sec. (24.2-36.6) H* 11/05/18 06:20 Sodium 136 mmol/L (137-145) L 11/05/18 18:11 Potassium 5.4 mmol/L (3.6-5.0) H 11/05/18 18:11 Chloride 97.4 mmol/L (98-107) L 11/05/18 18:11 Carbon Dioxide 22 mmol/L (22-30) 11/05/18 18:11 Anion Gap 22 mmol/L 11/05/18 18:11 BUN 36 mg/dL (9-20) H 11/05/18 18:11 Creatinine 1.5 mg/dL (0.8-1.5) 11/05/18 18:11 Estimated GFR > 60 ml/min 11/05/18 18:11 BUN/Creatinine Ratio 24 % 11/05/18 18:11 Glucose 167 mg/dL (75-100) H 11/05/18 18:11 POC Glucose 78 (70-105) 11/06/18 12:16 Calcium 9.0 mg/dL (8.4-10.2) 11/05/18 18:11 Troponin T 0.011 ng/mL (0.00-0.029) 11/04/18 22:48 Urine Color Yellow (Yellow) 11/05/18 00:42 Urine Turbidity Clear (Clear) 11/05/18 00:42 Urine pH 6.0 (5.0-7.0) 11/05/18 00:42 Ur Specific [place] 1.030 (1.003-1.030) 11/05/18 00:42 Urine Protein <15 mg/dl mg/dL (Negative) 11/05/18 00:42 Urine Glucose (UA) Neg mg/dL (Negative) 11/05/18 00:42 Urine Ketones Neg mg/dL (Negative) 11/05/18 00:42 Urine Blood Neg (Negative) 11/05/18 00:42 Urine Nitrite Neg (Negative) 11/05/18 00:42 Urine Bilirubin Neg (Negative) 11/05/18 00:42 Urine Urobilinogen 2.0 mg/dL (<2.0) 11/05/18 00:42 Ur Leukocyte Esterase Neg (Negative) 11/05/18 00:42 Urine WBC (Auto) 1.0 /HPF (0.0-6.0) 11/05/18 00:42 Urine RBC (Auto) 2.0 /HPF (0.0-6.0) 11/05/18 00:42 U Epithel Cells (Auto) < 1.0 /HPF (0-13.0) 11/05/18 00:42 Urine Mucus Few /HPF 11/05/18 00:42 Active Medications - Current Medications Current Medications: Generic Name Dose Route Start Last Admin Trade Name Freq PRN Reason Stop Dose Admin Acetaminophen 650 mg 11/04/18 23:08 Tylenol PO Q4H PRN Pain MILD(1-3)/Fever >100.5/ROBERSON Aspirin 81 mg 11/05/18 10:00 11/06/18 09:46 Halfprin Ec PO 81 mg DAILY CODY Administration Atorvastatin Calcium 40 mg 11/05/18 22:00 11/05/18 21:28 Lipitor PO 40 mg QHS CODY Administration Carvedilol 25 mg 11/05/18 10:00 11/06/18 09:46 Coreg PO 25 mg BID CODY Administration Dextrose 50 ml 11/04/18 23:08 D50w (25gm) Syringe IV PRN PRN Hypoglycemia Hydralazine HCl 5 mg 11/05/18 05:00 Apresoline IV Q6H PRN For Sys BP >175 Insulin Human Lispro 0 unit 11/05/18 07:30 11/06/18 12:32 Humalog SUB-Q Not Given ACHS [facility] Protocol Losartan Potassium 25 mg 11/05/18 10:00 11/06/18 09:51 Cozaar PO 25 mg QDAY CODY Administration Morphine Sulfate 2 mg 11/05/18 21:31 11/06/18 09:46 Morphine IV 2 mg Q4H PRN Administration Pain, Moderate (4-6) Ondansetron HCl 4 mg 11/04/18 23:08 Zofran IV Q8H PRN Nausea And Vomiting Oxycodone HCl 10 mg 11/05/18 04:25 11/06/18 08:33 Roxicodone PO 10 mg Q6H PRN Administration Pain, Severe (7-10) Sodium Chloride 10 ml 11/05/18 10:00 11/06/18 09:47 Sodium Chloride Flush Syringe 10 Ml IV 10 ml BID CODY Administration Sodium Chloride 10 ml 11/04/18 23:08 Sodium Chloride Flush Syringe 10 Ml IV PRN PRN LINE FLUSH Warfarin Sodium 10 mg 11/06/18 17:00 Coumadin PO DAILY@1700 [facility]
[2018-11-06 14:58] VITALS: BP 124/84
--- NOTE | 2018-11-06 16:29 | Discharge Summary ---
Providers - Providers Date of Admission: 11/05/18 13:41 Date of discharge: 11/06/18 Attending physician: TACHO SOMMERS 11/05/18 09:54 Consult to Physician [CONS] Routine Comment: Consulting Provider: ABBEY MORENO Physician Instructions: Reason For Exam: Chest pain , CAD Primary care physician: CRISTIANA HEMPHILL Hospitalization Condition: Fair Hospital course: Patient is 33 yo with hypertension, CHF, diabetes, coronary artery disease, history of DVT . He presented with left-sided chest pain and shortness of breath. He was seen and evaluated in ED. His cardiac enzymes were normal. He had a cardiac cath last year which was normal. he was admitted and evaluated by cardiology. cardiology recommended conservative management. he also had hyperkalemia which resolved on next day. Chest pain subsided and he was discharged home on 11/06/18. His coumadin was continued for chronic DVT. Total time spent on discharge 32 mins Disposition: DC- TO HOME OR SELFCARE - Discharge Diagnoses (1) Acute chest pain Status: Acute (2) Acute on chronic systolic (congestive) heart failure Status: Acute (3) AICD (automatic cardioverter/defibrillator) present Status: Chronic (4) Cardiomyopathy Status: Chronic Qualifiers: Cardiomyopathy type: unspecified Qualified Code(s): I42.9 - Cardiomyopathy, unspecified (5) Diabetes mellitus Status: Chronic Qualifiers: Diabetes mellitus type: type 2 Core Measure Documentation - Palliative Care Palliative Care/ Comfort Measures: Not Applicable - Core Measures Any of the following diagnoses?: heart failure - Heart Failure Discharge Requirements JOSH/ARB for LVSD if EF <40%: Yes Beta nilson at discharge: Yes Exam - Constitutional Vitals: Temp Pulse Resp BP Pulse Ox 98.3 F 71 20 124/84 92 11/06/18 13:00 11/06/18 13:00 11/06/18 13:00 11/06/18 13:00 11/06/18 13:00 Plan Activity: advance as tolerated Diet: low fat, low cholesterol, low salt, diabetic Additional Instructions: 1.Follow up with PCP in 1 week. 2.Follow up with Cardiology at [facility] in 1 week. 3.Check INR on Friday11/09/18 at PCP office Follow up with: CAROLYN MELO MD [Referring] - 3-5 Days Forms: Warfarin Discharge Instruction Prescriptions: Famotidine [Pepcid] 20 mg PO BID #30 tablet
[2018-11-06] MEDS ORDERED: COUMADIN PO SCH (17:00)
== END 2018-11-06 19:00 | disposition home or self-care (01) | DRG 291 ==
LOC: ED 19:57 → 4A 22:56 → OBSVTOIN 11-05 13:41
PROVIDERS: ADMIT Internal Medicine; ATTEND Internal Medicine
DX: I13.0 Hypertensive heart and chronic kidney disease with heart failure and stage 1 through stage 4 chronic kidney disease, or unspecified chronic kidney disease (principal); I50.23 Acute on chronic systolic (congestive) heart failure; Z68.44 Body mass index [BMI] 60.0-69.9, adult; I82.599 Chronic embolism and thrombosis of other specified deep vein of unspecified lower extremity; I42.0 Dilated cardiomyopathy; R07.89 Other chest pain; E87.5 Hyperkalemia; E66.01 Morbid (severe) obesity due to excess calories; I49.3 Ventricular premature depolarization; I44.7 Left bundle-branch block, unspecified; I89.0 Lymphedema, not elsewhere classified; I25.10 Atherosclerotic heart disease of native coronary artery without angina pectoris; E11.22 Type 2 diabetes mellitus with diabetic chronic kidney disease; N18.9 Chronic kidney disease, unspecified; Z79.82 Long term (current) use of aspirin; Z79.899 Other long term (current) drug therapy; Z82.49 Family history of ischemic heart disease and other diseases of the circulatory system; Z95.810 Presence of automatic (implantable) cardiac defibrillator; I25.2 Old myocardial infarction
CPT/HCPCS: 36415; 71045; 80048; 81001; 82962; 84132; 84484; 85007; 85025; 85610; 85730; 93005; 93010; 93970; 94760; 96372; 96374; 96375; G0378; A9270-GY; J1650; J1815; J2270; J2405

== ENCOUNTER 2018-12-21 21:41 | Inpatient (IN) | payer OTHER ==
--- NOTE | 2018-12-21 21:50 | Emergency Department Report ---
Blank Doc - Documentation Documentation: This is a 33-year-old male that presents with chest pain, SOB, and bilateral f eet swelling. This initial assessment/diagnostic orders/clinical plan/treatment(s) is/are subject to change based on patient's health status, clinical progression and re- assessment by fellow clinical providers in the ED. Further treatment and workup at subsequent clinical providers discretion. Patient/guardians urged not to elope from the ED as their condition may be serious if not clinically assessed and managed. Initial orders include: 1- Patient sent to MAIN ED for further evaluation and treatment 2- labs 3- EKG 4- CXR
[2018-12-21 22:27] LABS: Mean Corpuscular HGB Conc 30 % (32-34); Mean Corpuscular Volume 73 fl (84-94); Platelet Count 224 K/mm3 (140-440); Red Blood Count 4.51 M/mm3 (3.65-5.03)
[2018-12-21 22:36] LABS: Albumin 3.7 g/dL (3.9-5); Calcium 9.2 mg/dL (8.4-10.2)
[2018-12-21 22:38] LABS: INR 1.77 (0.87-1.13)
[2018-12-21 22:40] LABS: Hemoglobin 9.9 gm/dl (11.8-15.2)
[2018-12-21 22:41] LABS: Red Cell Distribution Width 23.2 % (13.2-15.2)
--- NOTE | 2018-12-21 22:56 | XRay Report ---
PROCEDURE: XR CHEST ROUTINE 2V TECHNIQUE: PA and lateral chest radiographs were obtained. HISTORY: Chest Pain COMPARISONS: Images from most recent prior exam not available at this time FINDINGS: Cardiac silhouette is moderately enlarged. There is pacemaker/AICD present. No focal pulmonary infilt rate identified. There is a small right pleural effusion with blunting of the costophrenic angle. IMPRESSION: Cardiomegaly with pacemaker/AICD Small right pleural effusion This document is electronically signed by Tejas Molina MD., December 21 2018 10:54:09 PM ET
[2018-12-21 23:00] LABS: Chol/HDL Ratio 2.09 %
[2018-12-21] MEDS ORDERED: HEPARIN 10,000 UNITS/10 ML IV ONE (23:02)
[2018-12-21] MEDS ORDERED: MORPHINE IV ONE (23:06)
--- NOTE | 2018-12-21 23:12 | Emergency Department Report ---
ED Chest Pain HPI - General Chief Complaint: Chest Pain Stated Complaint: LEG PAIN EDEMA Time Seen by Provider: 12/21/18 21:49 Source: patient, EMS Mode of arrival: Wheelchair Limitations: No Limitations - History of Present Illness Initial Comments: 34-year-old with history of morbid obesity, CHF w/ AICD, right lower extremity DVT with chronic lymphedema, HTN, DM presents to ED with bilateral lower extremity swelling, dyspnea on exertion, throbbing chest pain 2 days. At baseline, patient's right leg is bigger than the left. However, patient reports increased swelling in both legs. States he increased his Lasix dosage, without relief of the swelling. Patient reports throbbing chest pain, nonradiating. Currently on Coumadin for DVT, states he has been noncompliant. [employer] : at [facility]; followed by [facility] during [facility] admissions MD Complaint: chest pain -: days(s) (2) Onset: during rest Pain Location: substernal Pain Radiation: none Severity: moderate Quality: other (throbbing) Consistency: constant Improves With: nothing Worsens With: nothing re: dyspnea. denies: nausea, vomting Other Symptoms: leg swelling - Related Data Home Medications Medication Instructions Recorded Confirmed Last Taken Metformin HCl 1,000 mg PO BID 10/18/17 12/22/18 11/04/18 Warfarin [Coumadin] 20 mg PO DAILY 08/25/18 12/22/18 11/04/18 Carvedilol [Coreg] 25 mg PO BID 11/05/18 12/22/18 11/04/18 Torsemide [Demadex] 60 mg PO BID 12/22/18 12/22/18 Unknown Previous Rx's Medication Instructions Recorded Last Taken Type Aspirin EC 81 mg PO DAILY tablet 07/11/18 11/04/18 Rx AtorvaSTATin [Lipitor] 40 mg PO QHS tablet 07/11/18 11/03/18 Rx Losartan [Cozaar] 25 mg PO QDAY tablet 07/11/18 11/04/18 Rx oxyCODONE [roxiCODONE] 10 mg PO Q6H PRN tablet 07/11/18 11/04/18 Rx Famotidine [Pepcid] 20 mg PO BID #30 tablet 11/06/18 Unknown Rx Allergies Allergy/AdvReac Type Severity Reaction Status Date / Time prochlorperazine Allergy Hives Verified 04/14/18 12:13 [From Compazine] Heart Score - HEART Score History: Slightly suspicious EKG: Non-specific Age: < 45 Risk factors: 1-2 risk factors Troponin: 1-3x normal limit HEART Score: 3 ED Review of Systems ROS: Stated complaint: LEG PAIN EDEMA Other details as noted in HPI Comment: All other systems reviewed and negative Constitutional: denies: chills, fever Respiratory: shortness of breath Cardiovascular: chest pain Musculoskeletal: other (reports bilateral lower extremity edema) ED Past Medical Hx - Past Medical History Previous Medical History?: Yes Hx Hypertension: Yes Hx Heart Attack/AMI: Yes Hx Congestive Heart Failure: Yes Hx Diabetes: Yes Hx Deep Vein Thrombosis: Yes Hx Asthma: No Hx COPD: No Additional medical history: R sided chest tube, -infection in lung. defibrillator 10/2017. EJ 15%. lymphedema - Surgical History Past Surgical History?: Yes Hx Pacemaker: Yes Hx Internal Defibrillator: Yes ([employer]. [employer] ) Additional Surgical History: lymphedema - Social History Smoking Status: Never Smoker Substance Use Type: None - Medications Home Medications: Home Medications Medication Instructions Recorded Confirmed Last Taken Type Metformin HCl 1,000 mg PO BID 10/18/17 12/22/18 11/04/18 History Aspirin EC 81 mg PO DAILY tablet 07/11/18 12/22/18 11/04/18 Rx AtorvaSTATin [Lipitor] 40 mg PO QHS tablet 07/11/18 12/22/18 11/03/18 Rx Losartan [Cozaar] 25 mg PO QDAY tablet 07/11/18 12/22/18 11/04/18 Rx oxyCODONE [roxiCODONE] 10 mg PO Q6H PRN tablet 07/11/18 12/22/18 11/04/18 Rx Warfarin [Coumadin] 20 mg PO DAILY 08/25/18 12/22/18 11/04/18 History Carvedilol [Coreg] 25 mg PO BID 11/05/18 12/22/18 11/04/18 History Famotidine [Pepcid] 20 mg PO BID #30 tablet 11/06/18 12/22/18 Unknown Rx Torsemide [Demadex] 60 mg PO BID 12/22/18 12/22/18 Unknown History ED Physical Exam - General Limitations: No Limitations General appearance: alert, in no apparent distress - Head Head exam: Present: atraumatic, normocephalic - Eye Eye exam: Present: normal appearance - ENT ENT exam: Present: mucous membranes moist - Neck Neck exam: Present: normal inspection - Respiratory Respiratory exam: Present: normal lung sounds bilaterally. Absent: respiratory distress - Cardiovascular Cardiovascular Exam: Present: regular rate, normal rhythm - GI/Abdominal GI/Abdominal exam: Present: soft. Absent: distended, tenderness - Extremities Exam Extremities exam: Present: other (4+ edema BLE; right leg larger than left at baseline per patient) - Neurological Exam Neurological exam: Present: alert, oriented X3 - Psychiatric Psychiatric exam: Present: normal affect, normal mood - Skin Skin exam: Present: warm, dry, intact, normal color ED Course Vital Signs 12/21/18 12/21/18 12/22/18 21:49 23:20 00:11 Temperature 98.4 F 98.4 F Pulse Rate 82 77 Respiratory 22 20 22 Rate Blood Pressure 132/97 Blood Pressure 135/79 [Right] O2 Sat by Pulse 96 94 94 Oximetry 12/22/18 12/22/18 00:38 01:19 Temperature Pulse Rate 77 Respiratory 22 22 Rate Blood Pressure Blood Pressure 114/78 [Right] O2 Sat by Pulse 94 Oximetry SABRINA score - Sabrina Score Age > 65: (0) No Aspirin use within the Past 7 Days: (1) Yes 3 or more CAD Risk Factors: (1) Yes 2 or more Angina events in past 24 hrs: (0) No Known CAD with more than 50% Stenosis: (0) No Elevated Cardiac Markers: (0) No ST Deviation Greater than 0.5mm: (0) No SABRINA Score: 2 ED Medical Decision Making - Lab Data Result diagrams: 12/21/18 21:53 12/21/18 21:53 - EKG Data -: EKG Interpreted by Co EKG shows normal: sinus rhythm, axis, intervals, QRS complexes Rate: normal - EKG Data When compared to previous EKG there are: no significant change - Radiology Data Radiology results: report reviewed, image reviewed - Medical Decision Making 33-year-old male with chest pain, bilateral lower extremity edema, dyspnea on exertion. EKG unchanged from previous, showing an intraventricular delay, previous inferior infarct. No acute ST changes present. Troponin elevated to 0.4, BNP also elevated to 2600. Heparin drip initiated for an NSTEMI. Patient's INR is also subtherapeutic at 1.77, currently being treated for DVT. Patient has chronic renal insufficiency with Cr normally 1.5-2.0. I do not think the patient's symptoms are due to a significant PE, as patient is not tachypnea, not hypoxic, nor is he in any respiratory distress. Blood pressure and heart rate are stable and normal. Due to patient's morbid obesity, he is unable to fit in the CT scanner, however, heparin drip will treat a possible PE as well. Symptoms are most likely due to CHF exacerbation. Patient admitted to hospitalist service. - Differential Diagnosis ACS, CHF, pneumonia Critical Care Time: Yes Critical care time in (mins) excluding proc time.: 35 Critical care attestation.: If time is entered above; I have spent that time in minutes in the direct care of this critically ill patient, excluding procedure time. Critical Care Time: 35 minutes ED Disposition Clinical Impression: NSTEMI (non-ST elevated myocardial infarction) Disposition: OP ADMIT IP TO THIS HOSP Is pt being admited?: Yes Condition: Stable Time of Disposition: 23:35
[2018-12-21 23:19] LABS: Basophils % (Manual) 0 % (0.0-1.8); Eosinophils % (Manual) 0 % (0.0-4.3); Total Cells Counted 100
[2018-12-21 23:20] LABS: Anisocytosis 2+; Hypochromasia 2+; Poikilocytosis 1+; Schistocytes Few; Target Cells Few
[2018-12-21 23:21] LABS: Ovalocytes Few; Platelet Estimate Consistent w Auto
[2018-12-21] MEDS ORDERED: SODIUM CHLORIDE FLUSH SYRINGE 10 ML IV PRN (23:50)
[2018-12-21] MEDS ORDERED: PROVENTIL IH PRN (23:50)
[2018-12-21] MEDS ORDERED: ZOFRAN IV PRN (23:50)
[2018-12-21] MEDS ORDERED: TYLENOL PO PRN (23:50)
[2018-12-21] MEDS ORDERED: NITROSTAT SL PRN (23:52)
[2018-12-21] MEDS ORDERED: D50W (25GM) Syringe IV PRN (23:57)
[2018-12-22] MEDS ORDERED: KIONEX PO ONE
--- NOTE | 2018-12-22 00:36 | History and Physical Report ---
<MAURICIO TSAI - Last Filed: 12/22/18 01:00> History of Present Illness Date of examination: 12/21/18 Date of admission: 12/21/2018 Chief complaint: Worsening Bilateral lower extremity edema, chest pain History of present illness: 33-year-old morbidly obese -Mongolian male with history of systolic heart failure, CAD, dilated nonischemic cardiomyopathy with ejection fraction 10-15%, status post AICD, right lower extremity DVT PE, lymph edema R>L, hypertension, diabetes, and chronic renal failure who presents to [facility] with complaints of worsening bilateral lower extremity edema and chest pain. Patient states that he's been experiencing worsening bilateral lower extremity edema and shortness of breath for the past 2-3 days. He states that he's been unable to ambulate more than 10 feet before becoming short of breath and needed to take a rest. He complains of leg pain which has also impeded his ability to ambulate. He has tried taking an extra dose of Lasix to help with swelling with no relief. Additionally patient complains of chest pain for 1 day. Patient states that his chest pain is nonradiating, substernal and intermittent. He describes it as throbbing and rates it 8/10. The pain is aggravated by activity and relieved with pain medicine. Patient admits to missing one week of Coumadin therapy. She was a plan to go out of town for one week but ended up spending 2 weeks but only had one week's supply of medication on hand. Patient follows at [facility] for outpatient cardiology and is followed by [facility] during [facility] admissions. Review of chart shows patient was admitted in October of this year with complaints of chest pain. Previous cardiac workup includes LHC and RHC done at [place] in October 2017 and echo done at [facility] in February 2018. LHC and RHC showed angiographically normal coronary arteries, normal right-sided filling pressures with a mean RA pressure of 5 mmHg, mildly elevated pulmonary artery pressures with a mean PA pressure of 27 mmHg and PA pressure was 38/16mmHG, mildly elevated left-sided filling pressures with a mean PCWP of 18 mmHg with a directly measured LVEDP of 20 mmHg, normal cardiac output with a CO of 5.74 L/min with a cardiac index of 1.82 L/min/m2 using a the Albaro equation. Echo showed EF 10-15%, LV severely dilated, LA severely dilated, mod TR, grade 2 diastolic dysfunction, mod MR, mod reduced RV systolic function, RVSP 25.2mmHg. Admits bilateral lower extremity pain, bilateral lower extremity edema, intermittent chest pain, or shortness of breath with exertion Denies nausea, vomiting, diarrhea, fever, hemoptysis, headache, visual disturbances, or recent sick contact Past History Past Medical History: CAD, diabetes, DVT (on Coumadin admits to missing one week but for the most part compliant), heart failure, hypertension, other (dilated nonischemic cardiomyopathy myopathy with EF 10-15% , lymphedema R>L) Past Surgical History: Other (AICD in situ) Social history: lives with family Family history: no significant family history Medications and Allergies Allergies Allergy/AdvReac Type Severity Reaction Status Date / Time prochlorperazine Allergy Hives Verified 04/14/18 12:13 [From Compazine] Home Medications Medication Instructions Recorded Confirmed Last Taken Type Metformin HCl 1,000 mg PO BID 10/18/17 12/22/18 11/04/18 History Aspirin EC 81 mg PO DAILY tablet 07/11/18 12/22/18 11/04/18 Rx AtorvaSTATin [Lipitor] 40 mg PO QHS tablet 07/11/18 12/22/18 11/03/18 Rx Losartan [Cozaar] 25 mg PO QDAY tablet 07/11/18 12/22/18 11/04/18 Rx oxyCODONE [roxiCODONE] 10 mg PO Q6H PRN tablet 07/11/18 12/22/18 11/04/18 Rx Warfarin [Coumadin] 20 mg PO DAILY 08/25/18 12/22/18 11/04/18 History Carvedilol [Coreg] 25 mg PO BID 11/05/18 12/22/18 11/04/18 History Famotidine [Pepcid] 20 mg PO BID #30 tablet 11/06/18 12/22/18 Unknown Rx Torsemide [Demadex] 60 mg PO BID 12/22/18 12/22/18 Unknown History Active Meds: Active Medications Acetaminophen (Tylenol) 650 mg PO Q4H PRN PRN Reason: Pain MILD(1-3)/Fever >100.5/ROBERSON Albuterol (Proventil) 2.5 mg IH Q3HRT PRN PRN Reason: Shortness Of Breath Aspirin (Halfprin Ec) 81 mg PO DAILY [facility] Atorvastatin Calcium (Lipitor) 40 mg PO QHS [facility] Carvedilol (Coreg) 25 mg PO BID [facility] Dextrose (D50w (25gm) Syringe) 50 ml IV PRN PRN PRN Reason: Hypoglycemia Famotidine (Pepcid) 20 mg PO BID [facility] Hydromorphone HCl (Dilaudid) 0.5 mg IV Q3H PRN PRN Reason: Pain , Severe (7-10) Heparin Sodium/Sodium Chloride (Heparin/ 0.45% Nacl-25,000 Unit/500 Ml) 25,000 unit in 500 mls @ 20 mls/hr IV TITRATE [facility]; Protocol Insulin Glargine (Lantus) 10 units SUB-Q QHS [facility] Insulin Human Lispro (Humalog) 0 unit SUB-Q ACHS [facility]; Protocol Insulin Human Regular (Humulin R) 5 units SUB-Q AC [facility] Losartan Potassium (Cozaar) 25 mg PO QDAY [facility] Morphine Sulfate (Morphine) 2 mg IV Q4H PRN PRN Reason: Pain, Moderate (4-6) Stop: 12/22/18 23:59 Nitroglycerin (Nitrostat) 0.4 mg SL .Q5MIN PRN PRN Reason: Chest Pain Ondansetron HCl (Zofran) 4 mg IV Q8H PRN PRN Reason: Nausea And Vomiting Sodium Chloride (Sodium Chloride Flush Syringe 10 Ml) 10 ml IV BID [facility] Sodium Chloride (Sodium Chloride Flush Syringe 10 Ml) 10 ml IV PRN PRN PRN Reason: LINE FLUSH Review of Systems All systems: negative (reviewed and no additional remarkable complaints except as noted below) Cardiovascular: chest pain, dyspnea on exertion, leg edema (bilateral lower extremity edema R>L, history of lymphedema) Respiratory: dyspnea on exertion Musculoskeletal: other (pain to bilateral lower extremity) Hematologic/Lymphatic: easy bruising, easy bleeding (anticoagulated on Coumadin) Exam - Physical Exam Narrative exam: Physical exam General appearance: Present: No acute distress, morbidly obese adult - Mongolian male, alert and oriented 3 - EENT Eyes: Present: PERRL, EOM intact ENT: hearing intact, poor dentition - Neck Neck: Present: supple, normal ROM - Respiratory Respiratory effort: Non-labored Respiratory: bilateral: diminished (bases) - Cardiovascular Heart rate: 79 (bpm) Rhythm: Sinus rhythm Heart Sounds: Present: S1 & S2. Absent: rub, click - Extremities Extremities: pulses intact, abnormal (history of lymphedema R>L, worsening BLE edema R>L) - Peripheral Assessment Peripheral Pulses: within normal limits - Abdominal General gastrointestinal: Obese, soft, non-tender, normal bowel sounds - Integumentary Integumentary: Present: warm, dry - Musculoskeletal Musculoskeletal: Able to move all extremities -Neurological Neurological: CNII-XII intact - Psychiatric Psychiatric: Appropriate for situation cooperative - Constitutional Vitals: Temp Pulse Resp BP Pulse Ox 98.4 F 77 22 135/79 94 12/21/18 23:20 12/21/18 23:20 12/22/18 00:11 12/21/18 23:20 12/22/18 00:11 Results - Labs CBC & Chem 7: 12/21/18 21:53 12/21/18 21:53 Labs: Laboratory Last Values WBC 5.8 K/mm3 (4.5-11.0) 12/21/18 21:53 RBC 4.51 M/mm3 (3.65-5.03) 12/21/18 21:53 Hgb 9.9 gm/dl (11.8-15.2) L 12/21/18 21:53 Hct 33.0 % (35.5-45.6) L 12/21/18 21:53 MCV 73 fl (84-94) L 12/21/18 21:53 MCH 22 pg (28-32) L 12/21/18 21:53 MCHC 30 % (32-34) L 12/21/18 21:53 RDW 23.2 % (13.2-15.2) H 12/21/18 21:53 Plt Count 224 K/mm3 (140-440) 12/21/18 21:53 Add Manual Diff Complete 12/21/18 21:53 Total Counted 100 12/21/18 21:53 Seg Neuts % (Manual) 70.0 % (40.0-70.0) 12/21/18 21:53 0 % 12/21/18 21:53 16.0 % (13.4-35.0) 12/21/18 21:53 Reactive Lymphs % (Man) 1.0 % 12/21/18 21:53 13.0 % (0.0-7.3) H 12/21/18 21:53 0 % (0.0-4.3) 12/21/18 21:53 0 % (0.0-1.8) 12/21/18 21:53 0 % 12/21/18 21:53 0 % 12/21/18 21:53 0 % 12/21/18 21:53 0 % 12/21/18 21:53 Nucleated RBC % 20.0 % (0.0-0.9) H 12/21/18 21:53 Seg Neutrophils # Man 4.1 K/mm3 (1.8-7.7) 12/21/18 21:53 Band Neutrophils # 0.0 K/mm3 12/21/18 21:53 0.9 K/mm3 (1.2-5.4) L 12/21/18 21:53 Abs React Lymphs (Man) 0.1 K/mm3 12/21/18 21:53 0.8 K/mm3 (0.0-0.8) 12/21/18 21:53 0.0 K/mm3 (0.0-0.4) 12/21/18 21:53 0.0 K/mm3 (0.0-0.1) 12/21/18 21:53 0.0 K/mm3 12/21/18 21:53 0.0 K/mm3 12/21/18 21:53 0.0 K/mm3 12/21/18 21:53 Blast Cells # 0.0 K/mm3 12/21/18 21:53 WBC Morphology Not Reportable 12/21/18 21:53 Hypersegmented Neuts Not Reportable 12/21/18 21:53 Hyposegmented Neuts Not Reportable 12/21/18 21:53 Hypogranular Neuts Not Reportable 12/21/18 21:53 Not Reportable 12/21/18 21:53 Not Reportable 12/21/18 21:53 Not Reportable 12/21/18 21:53 Not Reportable 12/21/18 21:53 Not Reportable 12/21/18 21:53 Not Reportable 12/21/18 21:53 Consistent w auto 12/21/18 21:53 Not Reportable 12/21/18 21:53 Plt Clumps, EDTA Not Reportable 12/21/18 21:53 Not Reportable 12/21/18 21:53 Not Reportable 12/21/18 21:53 Not Reportable 12/21/18 21:53 Plt Morphology Comment Not Reportable 12/21/18 21:53 RBC Morphology Not Reportable 12/21/18 21:53 Dimorphic RBCs Not Reportable 12/21/18 21:53 Few 12/21/18 21:53 2+ 12/21/18 21:53 1+ 12/21/18 21:53 2+ 12/21/18 21:53 Not Reportable 12/21/18 21:53 Not Reportable 12/21/18 21:53 Not Reportable 12/21/18 21:53 Not Reportable 12/21/18 21:53 Not Reportable 12/21/18 21:53 Few 12/21/18 21:53 Not Reportable 12/21/18 21:53 Few 12/21/18 21:53 Not Reportable 12/21/18 21:53 Not Reportable 12/21/18 21:53 Not Reportable 12/21/18 21:53 Not Reportable 12/21/18 21:53 Not Reportable 12/21/18 21:53 Not Reportable 12/21/18 21:53 Not Reportable 12/21/18 21:53 Acanthocytes (Spur) Not Reportable 12/21/18 21:53 Rouleaux Not Reportable 12/21/18 21:53 Not Reportable 12/21/18 21:53 Few 12/21/18 21:53 Not Reportable 12/21/18 21:53 Not Reportable 12/21/18 21:53 Hem Pathologist Commnt No 12/21/18 21:53 PT 21.8 Sec. (12.2-14.9) H 12/21/18 21:53 INR 1.77 (0.87-1.13) H 12/21/18 21:53 APTT 44.0 Sec. (24.2-36.6) H 12/21/18 21:53 Sodium 128 mmol/L (137-145) L 12/21/18 21:53 Potassium 5.5 mmol/L (3.6-5.0) H 12/21/18 21:53 Chloride 93.0 mmol/L (98-107) L 12/21/18 21:53 Carbon Dioxide 19 mmol/L (22-30) L 12/21/18 21:53 22 mmol/L 12/21/18 21:53 BUN 56 mg/dL (9-20) H 12/21/18 21:53 2.0 mg/dL (0.8-1.5) H 12/21/18 21:53 Estimated GFR 47 ml/min 12/21/18 21:53 28 % 12/21/18 21:53 Glucose 126 mg/dL (75-100) H 12/21/18 21:53 Calcium 9.2 mg/dL (8.4-10.2) 12/21/18 21:53 1.40 mg/dL (0.1-1.2) H 12/21/18 21:53 AST 57 units/L (5-40) H 12/21/18 21:53 ALT 57 units/L (7-56) H 12/21/18 21:53 104 units/L (35-129) 12/21/18 21:53 0.446 ng/mL (0.00-0.029) H* 12/21/18 21:53 NT-Pro-B Natriuret Pep 2673 pg/mL (0-450) H 12/21/18 21:53 7.1 g/dL (6.3-8.2) 12/21/18 21:53 3.7 g/dL (3.9-5) L 12/21/18 21:53 1.1 % 12/21/18 21:53 Triglycerides 56 mg/dL (2-149) 12/21/18 21:53 Cholesterol 67 mg/dL (50-199) 12/21/18 21:53 29 mg/dL (50-130) L 12/21/18 21:53 32 mg/dL (40-59) L 12/21/18 21:53 2.09 % 12/21/18 21:53 - Imaging and Cardiology EKG: image reviewed (sinus rhythm) Chest x-ray: report reviewed (right pleural effusion, cardiomegaly with AICD in situ), image reviewed Assessment and Plan Assessment and plan: 33-year-old morbidly obese -Mongolian male with history of systolic heart failure, CAD, dilated nonischemic cardiomyopathy with ejection fraction 10- 15%(Echo 8/18), status post AICD, right lower extremity DVT PE, lymph edema R>L, hypertension, diabetes, and chronic renal failure who presents to Center [facility] with complaints of worsening bilateral lower extremity edema, bilateral lower extremity pain and chest pain. He is an established patient of at [facility] and is followed by [facility] during [facility] admissions. CXR showed small right pleural effusion. Troponin elevated at 0.446, BNP elevated at 2673. EKG revealed acute ischemic abnormalities. Will admit to telemetry for further evaluation. Elevated troponin Unstable angina Hyperkalemia Hyponatremia REJI on chronic renal failure Anemia DM 2 History of right lower extremity DVT on Coumadin Dilated nonischemic cardiomyopathy with EF 10-15% Systolic heart failure S/P AICD Lymphedema R>L Morbid obesity Plan: Continue supportive care Continuous telemetry monitoring Continue heparin drip Cardiology consult pending Trend troponin Monitor renal function; BUN/Cr on admission 56/2.0 Nephrology consult pending Monitor Hgb transfusions when necessary Monitor electrolytes, replete as needed Kayexalate 30 mg 1 given Monitor BP Resume home Losartan 25 mg daily, Coreg 25 mg twice a day ASA 81 mg daily, Lipitor 40 mg daily at bedtime POC BG monitor HgbA1C pending Schedule Premeal insulin and Lantus; SSI coverage Bilateral lower extremity Doppler pending DVT PPX on heparin gtt Advance Directives: No VTE prophylaxis?: Chemical Plan of care discussed with patient/family: Yes <KYM CHARLES - Last Filed: 12/22/18 06:05> History of Present Illness Date of admission: 12/21/18 23:50 Medications and Allergies Active Meds: Active Medications Acetaminophen (Tylenol) 650 mg PO Q4H PRN PRN Reason: Pain MILD(1-3)/Fever >100.5/ROBERSON Albuterol (Proventil) 2.5 mg IH Q3HRT PRN PRN Reason: Shortness Of Breath Aspirin (Halfprin Ec) 81 mg PO DAILY [facility] Atorvastatin Calcium (Lipitor) 40 mg PO QHS [facility] Carvedilol (Coreg) 25 mg PO BID [facility] Dextrose (D50w (25gm) Syringe) 50 ml IV PRN PRN PRN Reason: Hypoglycemia Famotidine (Pepcid) 20 mg PO BID [facility] Hydromorphone HCl (Dilaudid) 0.5 mg IV Q3H PRN PRN Reason: Pain , Severe (7-10) Last Admin: 12/22/18 04:14 Dose: 0.5 mg Documented by: Heparin Sodium/Sodium Chloride (Heparin/ 0.45% Nacl-25,000 Unit/500 Ml) 25,000 unit in 500 mls @ 20 mls/hr IV TITRATE [facility]; Protocol Last Admin: 12/22/18 00:45 Dose: 1,000 units/hr, 20 mls/hr Documented by: Insulin Glargine (Lantus) 10 units SUB-Q QHS [facility] Insulin Human Lispro (Humalog) 0 unit SUB-Q ACHS [facility]; Protocol Insulin Human Regular (Humulin R) 3 units SUB-Q AC [facility] Morphine Sulfate (Morphine) 2 mg IV Q4H PRN PRN Reason: Pain, Moderate (4-6) Stop: 12/22/18 23:59 Last Admin: 12/22/18 02:29 Dose: 2 mg Documented by: Nitroglycerin (Nitrostat) 0.4 mg SL .Q5MIN PRN PRN Reason: Chest Pain Ondansetron HCl (Zofran) 4 mg IV Q8H PRN PRN Reason: Nausea And Vomiting Sodium Chloride (Sodium Chloride Flush Syringe 10 Ml) 10 ml IV BID [facility] Sodium Chloride (Sodium Chloride Flush Syringe 10 Ml) 10 ml IV PRN PRN PRN Reason: LINE FLUSH Exam - Constitutional Vitals: Temp Pulse Resp BP Pulse Ox 97.8 F 78 20 126/79 95 12/22/18 05:33 12/22/18 05:33 12/22/18 05:33 12/22/18 05:33 12/22/18 05:33 Results - Labs CBC & Chem 7: 12/21/18 21:53 12/21/18 21:53 Labs: Laboratory Last Values WBC 5.8 K/mm3 (4.5-11.0) 12/21/18 21:53 RBC 4.51 M/mm3 (3.65-5.03) 12/21/18 21:53 Hgb 9.9 gm/dl (11.8-15.2) L 12/21/18 21:53 Hct 33.0 % (35.5-45.6) L 12/21/18 21:53 MCV 73 fl (84-94) L 12/21/18 21:53 MCH 22 pg (28-32) L 12/21/18 21:53 MCHC 30 % (32-34) L 12/21/18 21:53 RDW 23.2 % (13.2-15.2) H 12/21/18 21:53 Plt Count 224 K/mm3 (140-440) 12/21/18 21:53 Add Manual Diff Complete 12/21/18 21:53 Total Counted 100 12/21/18 21:53 Seg Neuts % (Manual) 70.0 % (40.0-70.0) 12/21/18 21:53 0 % 12/21/18 21:53 16.0 % (13.4-35.0) 12/21/18 21:53 Reactive Lymphs % (Man) 1.0 % 12/21/18 21:53 13.0 % (0.0-7.3) H 12/21/18 21:53 0 % (0.0-4.3) 12/21/18 21:53 0 % (0.0-1.8) 12/21/18 21:53 0 % 12/21/18 21:53 0 % 12/21/18 21:53 0 % 12/21/18 21:53 0 % 12/21/18 21:53 Nucleated RBC % 20.0 % (0.0-0.9) H 12/21/18 21:53 Seg Neutrophils # Man 4.1 K/mm3 (1.8-7.7) 12/21/18 21:53 Band Neutrophils # 0.0 K/mm3 12/21/18 21:53 0.9 K/mm3 (1.2-5.4) L 12/21/18 21:53 Abs React Lymphs (Man) 0.1 K/mm3 12/21/18 21:53 0.8 K/mm3 (0.0-0.8) 12/21/18 21:53 0.0 K/mm3 (0.0-0.4) 12/21/18 21:53 0.0 K/mm3 (0.0-0.1) 12/21/18 21:53 0.0 K/mm3 12/21/18 21:53 0.0 K/mm3 12/21/18 21:53 0.0 K/mm3 12/21/18 21:53 Blast Cells # 0.0 K/mm3 12/21/18 21:53 WBC Morphology Not Reportable 12/21/18 21:53 Hypersegmented Neuts Not Reportable 12/21/18 21:53 Hyposegmented Neuts Not Reportable 12/21/18 21:53 Hypogranular Neuts Not Reportable 12/21/18 21:53 Not Reportable 12/21/18 21:53 Not Reportable 12/21/18 21:53 Not Reportable 12/21/18 21:53 Not Reportable 12/21/18 21:53 Not Reportable 12/21/18 21:53 Not Reportable 12/21/18 21:53 Consistent w auto 12/21/18 21:53 Not Reportable 12/21/18 21:53 Plt Clumps, EDTA Not Reportable 12/21/18 21:53 Not Reportable 12/21/18 21:53 Not Reportable 12/21/18 21:53 Not Reportable 12/21/18 21:53 Plt Morphology Comment Not Reportable 12/21/18 21:53 RBC Morphology Not Reportable 12/21/18 21:53 Dimorphic RBCs Not Reportable 12/21/18 21:53 Few 12/21/18 21:53 2+ 12/21/18 21:53 1+ 12/21/18 21:53 2+ 12/21/18 21:53 Not Reportable 12/21/18 21:53 Not Reportable 12/21/18 21:53 Not Reportable 12/21/18 21:53 Not Reportable 12/21/18 21:53 Not Reportable 12/21/18 21:53 Few 12/21/18 21:53 Not Reportable 12/21/18 21:53 Few 12/21/18 21:53 Not Reportable 12/21/18 21:53 Not Reportable 12/21/18 21:53 Not Reportable 12/21/18 21:53 Not Reportable 12/21/18 21:53 Not Reportable 12/21/18 21:53 Not Reportable 12/21/18 21:53 Not Reportable 12/21/18 21:53 Acanthocytes (Spur) Not Reportable 12/21/18 21:53 Rouleaux Not Reportable 12/21/18 21:53 Not Reportable 12/21/18 21:53 Few 12/21/18 21:53 Not Reportable 12/21/18 21:53 Not Reportable 12/21/18 21:53 Hem Pathologist Commnt No 12/21/18 21:53 PT 21.8 Sec. (12.2-14.9) H 12/21/18 21:53 INR 1.77 (0.87-1.13) H 12/21/18 21:53 APTT 44.0 Sec. (24.2-36.6) H 12/21/18 21:53 Sodium 128 mmol/L (137-145) L 12/21/18 21:53 Potassium 5.5 mmol/L (3.6-5.0) H 12/21/18 21:53 Chloride 93.0 mmol/L (98-107) L 12/21/18 21:53 Carbon Dioxide 19 mmol/L (22-30) L 12/21/18 21:53 22 mmol/L 12/21/18 21:53 BUN 56 mg/dL (9-20) H 12/21/18 21:53 2.0 mg/dL (0.8-1.5) H 12/21/18 21:53 Estimated GFR 47 ml/min 12/21/18 21:53 28 % 12/21/18 21:53 Glucose 126 mg/dL (75-100) H 12/21/18 21:53 7.5 % (4-6) H 12/22/18 00:12 Calcium 9.2 mg/dL (8.4-10.2) 12/21/18 21:53 1.40 mg/dL (0.1-1.2) H 12/21/18 21:53 AST 57 units/L (5-40) H 12/21/18 21:53 ALT 57 units/L (7-56) H 12/21/18 21:53 104 units/L (35-129) 12/21/18 21:53 0.393 ng/mL (0.00-0.029) H* 12/22/18 00:12 NT-Pro-B Natriuret Pep 2673 pg/mL (0-450) H 12/21/18 21:53 7.1 g/dL (6.3-8.2) 12/21/18 21:53 3.7 g/dL (3.9-5) L 12/21/18 21:53 1.1 % 12/21/18 21:53 Triglycerides 56 mg/dL (2-149) 12/21/18 21:53 Cholesterol 67 mg/dL (50-199) 12/21/18 21:53 29 mg/dL (50-130) L 12/21/18 21:53 32 mg/dL (40-59) L 12/21/18 21:53 2.09 % 12/21/18 21:53 Assessment and Plan Assessment and plan: I saw and evaluated the patient. I agree with the findings and the plan of care as documented in the Nurse Practitioner's~note, with the following corrections and additions.
[2018-12-22] MEDS: HEPARIN/ 0.45% NACL-25,000 UNIT/500 ML 25,000 UNIT/500 ML BAG IV SCH ×2 (00:45→16:44)
[2018-12-22] MEDS: MORPHINE IV PRN ×3 (02:29→14:28)
[2018-12-22] MEDS: DILAUDID IV PRN ×5 (04:14→19:30)
[2018-12-22 06:40] LABS: Mean Corpuscular HGB Conc 30 % (32-34); Mean Corpuscular Volume 72 fl (84-94); Platelet Count 208 K/mm3 (140-440); Red Blood Count 4.58 M/mm3 (3.65-5.03)
[2018-12-22 06:41] LABS: Red Cell Distribution Width 22.9 % (13.2-15.2)
[2018-12-22 07:04] LABS: Calcium 8.9 mg/dL (8.4-10.2)
[2018-12-22] MEDS ORDERED: HumuLIN R SUB-Q SCH (07:30)
[2018-12-22] MEDS: HumuLIN R SUB-Q SCH ×3 (08:10→17:06)
[2018-12-22] MEDS: HumaLOG SUB-Q SCH ×3 (08:10→17:06)
[2018-12-22] MEDS: COREG PO SCH (09:12)
[2018-12-22] MEDS: PEPCID PO SCH (09:12)
[2018-12-22] MEDS: HALFPRIN EC PO SCH (09:12)
[2018-12-22] MEDS: SODIUM CHLORIDE FLUSH SYRINGE 10 ML IV SCH (09:13)
[2018-12-22 09:42] LABS: Basophils % (Manual) 0 % (0.0-1.8); Eosinophils % (Manual) 0 % (0.0-4.3); Myelocytes # (Manual) 0.1 K/mm3; Total Cells Counted 100
[2018-12-22 09:43] LABS: Anisocytosis 1+; Giant Platelets Rare; Hypochromasia 2+; Ovalocytes Few; Platelet Estimate Consistent w Auto; Poikilocytosis 1+; Schistocytes Rare; Target Cells 1+
[2018-12-22] MEDS ORDERED: COZAAR PO SCH (10:00)
--- NOTE | 2018-12-22 12:09 | Consultation ---
History of Present Illness Consult date: 12/22/18 Requesting physician: MAURICIO TSAI Consult reason: congestive heart failure History of present illness: The pt is a 33 YO male with a past medical history significant for chronic systolic heart failure, dilated NICMP, AICD in situ, frequent PVCs and NSVT, HTN, DM, RLE DVT, anticoagulated with coumadin, morbid obesity, lymphedema. He has been seen by our practice on prior hospitalizations and follows at [facility]. He presented with c/o progressively worsening SOB, RAE, BLE edema (R>L) and orthopnea for the past 2-3 days. He also reports intermittent chest pain. He describes his chest pain as a midsternal aching pain which is resolved by pain medications. He denies any palpitations, n/v, diaphoresis, dizziness or syncope. He has tried taking an extra dose of Lasix to help with swelling with no relief. Patient admits to missing one week of Coumadin therapy. Pt underwent LHC and RHC at [facility] on 10/24/2017 which showed angiographically normal coronary arteries, normal right-sided filling pressures with a mean RA pressure of 5 mmHg, mildly elevated pulmonary artery pressures with a mean PA pressure of 27 mmHg and PA pressure was 38/16mmHG, mildly elevated left-sided filling pressures with a mean PCWP of 18 mmHg with a directly measured LVEDP of 20 mmHg, normal cardiac output with a CO of 5.74 L/min with a cardiac index of 1.82 L/min/m2 using a the Albaro equation. Echo done in 02/18/2018 at [facility] showed EF 10-15%, LV severely dilated, LA severely dilated, mod TR, grade 2 diastolic dysfunction, mod MR, mod reduced RV systolic function, RVSP 25.2mmHg. Past History Past Medical History: diabetes, DVT (on Coumadin admits to missing one week but for the most part compliant), heart failure, hypertension, other (lymphedema R>L) Past Surgical History: Other (AICD in situ) Social history: lives with family Family history: no significant family history Medications and Allergies Allergies Allergy/AdvReac Type Severity Reaction Status Date / Time prochlorperazine Allergy Hives Verified 04/14/18 12:13 [From Compazine] Home Medications Medication Instructions Recorded Confirmed Last Taken Type Metformin HCl 1,000 mg PO BID 10/18/17 12/22/18 11/04/18 History Aspirin EC 81 mg PO DAILY tablet 07/11/18 12/22/18 11/04/18 Rx AtorvaSTATin [Lipitor] 40 mg PO QHS tablet 07/11/18 12/22/18 11/03/18 Rx Losartan [Cozaar] 25 mg PO QDAY tablet 07/11/18 12/22/18 11/04/18 Rx oxyCODONE [roxiCODONE] 10 mg PO Q6H PRN tablet 07/11/18 12/22/18 11/04/18 Rx Warfarin [Coumadin] 20 mg PO DAILY 08/25/18 12/22/18 11/04/18 History Carvedilol [Coreg] 25 mg PO BID 11/05/18 12/22/18 11/04/18 History Famotidine [Pepcid] 20 mg PO BID #30 tablet 11/06/18 12/22/18 Unknown Rx Torsemide [Demadex] 60 mg PO BID 12/22/18 12/22/18 Unknown History Active Meds: Active Medications Acetaminophen (Tylenol) 650 mg PO Q4H PRN PRN Reason: Pain MILD(1-3)/Fever >100.5/ROBERSON Albuterol (Proventil) 2.5 mg IH Q3HRT PRN PRN Reason: Shortness Of Breath Aspirin (Halfprin Ec) 81 mg PO DAILY [facility] Last Admin: 12/22/18 09:12 Dose: 81 mg Documented by: Atorvastatin Calcium (Lipitor) 40 mg PO QHS [facility] Carvedilol (Coreg) 25 mg PO BID [facility] Last Admin: 12/22/18 09:12 Dose: 25 mg Documented by: Dextrose (D50w (25gm) Syringe) 50 ml IV PRN PRN PRN Reason: Hypoglycemia Famotidine (Pepcid) 20 mg PO BID [facility] Last Admin: 12/22/18 09:12 Dose: 20 mg Documented by: Hydromorphone HCl (Dilaudid) 0.5 mg IV Q3H PRN PRN Reason: Pain , Severe (7-10) Last Admin: 12/22/18 12:07 Dose: 0.5 mg Documented by: Heparin Sodium/Sodium Chloride (Heparin/ 0.45% Nacl-25,000 Unit/500 Ml) 25,000 unit in 500 mls @ 20 mls/hr IV TITRATE [facility]; Protocol Last Titration: 12/22/18 07:07 Dose: 1,600 units/hr, 32 mls/hr Documented by: Insulin Glargine (Lantus) 10 units SUB-Q QHS CODY Insulin Human Lispro (Humalog) 0 unit SUB-Q ACHS [facility]; Protocol Last Admin: 12/22/18 08:10 Dose: Not Given Documented by: Insulin Human Regular (Humulin R) 3 units SUB-Q AC [facility] Last Admin: 12/22/18 08:10 Dose: Not Given Documented by: Morphine Sulfate (Morphine) 2 mg IV Q4H PRN PRN Reason: Pain, Moderate (4-6) Stop: 12/22/18 23:59 Last Admin: 12/22/18 06:32 Dose: 2 mg Documented by: Nitroglycerin (Nitrostat) 0.4 mg SL .Q5MIN PRN PRN Reason: Chest Pain Ondansetron HCl (Zofran) 4 mg IV Q8H PRN PRN Reason: Nausea And Vomiting Sodium Chloride (Sodium Chloride Flush Syringe 10 Ml) 10 ml IV BID [facility] Last Admin: 12/22/18 09:13 Dose: 10 ml Documented by: Sodium Chloride (Sodium Chloride Flush Syringe 10 Ml) 10 ml IV PRN PRN PRN Reason: LINE FLUSH Review of Systems Constitutional: no fever, no chills, no sweats Ears, nose, mouth and throat: no ear pain, no nose pain, no sinus pressure, no sinus pain Cardiovascular: chest pain, orthopnea, edema, shortness of breath, dyspnea on exertion, paroxysmal nocturnal dyspnea, high blood pressure, leg edema, decreased exercise tolerance, no palpitations, no rapid/irregular heart beat, no syncope, no lightheadedness Respiratory: shortness of breath, dyspnea on exertion, no cough, no congestion, no wheezing, no pain on inspiration Gastrointestinal: no abdominal pain, no nausea, no vomiting, no diarrhea, no constipation, no change in bowel habits Genitourinary Male: no dysuria, no hematuria, no flank pain, no discharge, no urinary frequency, no urinary hesitancy Musculoskeletal: no neck stiffness, no neck pain, no shooting arm pain, no arm numbness/tingling, no low back pain Integumentary: no rash, no pruritis, no redness, no sores, no wounds Neurological: no head injury, no paralysis, no weakness, no parathesias, no numbness, no tingling, no seizures, no syncope Psychiatric: no anxiety Endocrine: no cold intolerance, no heat intolerance Hematologic/Lymphatic: no easy bruising, no easy bleeding Allergic/Immunologic: no urticaria, no wheezing Physical Examination Vital Signs Temp Pulse Resp BP Pulse Ox 98.4 F 82 22 132/97 96 12/21/18 21:49 12/21/18 21:49 12/21/18 21:49 12/21/18 21:49 12/21/18 21:49 General appearance: no acute distress HEENT: Positive: PERRL, Normocephaly, Mucus Membranes Moist Neck: Positive: neck supple, trachea midline Cardiac: Positive: Reg Rate and Rhythm, S1/S2 Lungs: Positive: Decreased Breath Sounds Neuro: Positive: Grossly Intact Abdomen: Positive: Soft Skin: Negative: Rash, Wound Musculoskeletal: No Pain Extremities: Present: Other (lymphedema R>L) Results 12/22/18 06:18 12/22/18 06:18 Cardiac Enzymes 12/21/18 Range/Units 21:53 AST 57 H (5-40) units/L Coagulation 12/21/18 Range/Units 21:53 PT 21.8 H (12.2-14.9) Sec. INR 1.77 H (0.87-1.13) APTT 44.0 H (24.2-36.6) Sec. Lipids 12/21/18 Range/Units 21:53 Triglycerides 56 (2-149) mg/dL Cholesterol 67 (50-199) mg/dL HDL Cholesterol 32 L (40-59) mg/dL Cholesterol/HDL Ratio 2.09 % CBC 12/21/18 12/22/18 Range/Units 21:53 06:18 WBC 5.8 4.9 (4.5-11.0) K/mm3 RBC 4.51 4.58 (3.65-5.03) M/mm3 Hgb 9.9 L 10.0 L (11.8-15.2) gm/dl Hct 33.0 L 33.0 L (35.5-45.6) % Plt Count 224 208 (140-440) K/mm3 Comprehensive Metabolic Panel 12/21/18 12/22/18 Range/Units 21:53 06:18 Sodium 128 L 129 L (137-145) mmol/L Potassium 5.5 H 5.1 H (3.6-5.0) mmol/L Chloride 93.0 L 93.2 L (98-107) mmol/L Carbon Dioxide 19 L 24 (22-30) mmol/L BUN 56 H 54 H (9-20) mg/dL Creatinine 2.0 H 2.0 H (0.8-1.5) mg/dL Glucose 126 H 106 H (75-100) mg/dL Calcium 9.2 8.9 (8.4-10.2) mg/dL AST 57 H (5-40) units/L ALT 57 H (7-56) units/L Alkaline Phosphatase 104 (35-129) units/L Total Protein 7.1 (6.3-8.2) g/dL Albumin 3.7 L (3.9-5) g/dL - Imaging and Cardiology Echo: report reviewed (02/18/2018 at [facility] showed EF 10-15%, LV severely dilated, LA severely dilated, mod TR, grade 2 diastolic dysfunction, mod MR, mod reduced RV systolic function, RVSP 25.2mmHg. ) Cardiac cath: report reviewed (LHC and RHC at [facility] on 10/24/2017 which showed angiographically normal coronary arteries, normal right-sided filling pressures with a mean RA pressure of 5 mmHg, mildly elevated pulmonary artery pressures with a mean PA pressure of 27 mmHg and PA pressure was 38/16mmHG, mildly elevated left-sided filling pressures with a mean PCWP of 18 mmHg with a directly measured LVEDP of 20 mmHg, normal cardiac output with a CO of 5.74 L/min with a cardiac index of 1.82 L/min/m2 using a the Albaro equation.) EKG: report reviewed, image reviewed EKG interpretations - Telemetry EKG Rhythm: Sinus Rhythm - EKG Sinus rhythms and dysrhythmias: sinus rhythm Assessment and Plan Assessment: Acute on chronic HFrEF Dilated NICMP - EF 10-15% AICD in situ Atypical chest pain - ECG with no acute ischemic changes; currently resolved NSTEMI type II - Nicol trending downwards REJI / hyperkalemia Hyponatremia RLE DVT / subtherapeutic INR Frequent PVCs and NSVT LBBB HTN DM Morbid obesity Lymphedema Anemia Plan: Agree with present cardiac management. Await nephrology consultation - pt would benefit from additional diuresis if renal indices permit. No ACEI/ARB at this time in setting of renal insufficiency. Troponin elevation pattern appears c/w NSTEMI type II. Will cont to trend Nicol and repeat ECG in AM. Pt's current weight exceeds weight limit for stress test or cardiac catheterization at this facility. The patient has been seen in conjunction with Dr. Bowling who agrees with the assessment and plan of care.
--- NOTE | 2018-12-22 18:59 | Consultation ---
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 Also has a history of type 2 diabetes mellitus and hypertension. He is not aware of chronic kidney disease. Patient presents on account of 3 days history of bilateral lower extremity swelling and pain right more than left. He also admits to dyspnea on exertion. He had chest pain for 2 days. Patient was playing with his daughter when she noticed the swelling. He took torsemide every day but it was not getting any better. He also has chest pain on exertion especially walking and is relieved with rest and deep breathing. Because of severe shortness of breath. He admits to dizziness and palpitations but no diaphoresis. On account of the worsening symptoms, patient came to the emergency room for further evaluation. Labs showed sodium low at 129's. Potassium high at 5.5 mmol per liter and BUN and creatinine elevated at 54 and 2 mg/dL. I'm consulted to assist in managing renal failure and fluid and electrolyte abnormalities. Patient denies any voiding difficulties -no frequency, urgency, dysuria or hematuria. He has not been being exposed to radiocontrast recently. No history of kidney stones or recurrent kidney infections. BUN/creatinine were 43/1.5 mg/dL 11/05/2018 and 48/1.7 mg/dL 07/10/2018. 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 He lives with his aunt). denies: smoking, alcohol abuse, prescription drug abuse, IV drug use Family history: other (mother of complications of congestive heart failure about age45. He does know about his father. His brother has diabetes mellitus) Medications and Allergies Allergies Allergy/AdvReac Type Severity Reaction Status Date / Time prochlorperazine Allergy Hives Verified 04/14/18 12:13 [From Compazine] Home Medications Medication Instructions Recorded Confirmed Last Taken Type Metformin HCl 1,000 mg PO BID 10/18/17 12/22/18 11/04/18 History Aspirin EC 81 mg PO DAILY tablet 07/11/18 12/22/18 11/04/18 Rx AtorvaSTATin [Lipitor] 40 mg PO QHS tablet 07/11/18 12/22/18 11/03/18 Rx Losartan [Cozaar] 25 mg PO QDAY tablet 07/11/18 12/22/18 11/04/18 Rx oxyCODONE [roxiCODONE] 10 mg PO Q6H PRN tablet 07/11/18 12/22/18 11/04/18 Rx Warfarin [Coumadin] 20 mg PO DAILY 08/25/18 12/22/18 11/04/18 History Carvedilol [Coreg] 25 mg PO BID 11/05/18 12/22/18 11/04/18 History Famotidine [Pepcid] 20 mg PO BID #30 tablet 11/06/18 12/22/18 Unknown Rx Torsemide [Demadex] 60 mg PO BID 12/22/18 12/22/18 Unknown History Active Meds: Active Medications Acetaminophen (Tylenol) 650 mg PO Q4H PRN PRN Reason: Pain MILD(1-3)/Fever >100.5/ROBERSON Albuterol (Proventil) 2.5 mg IH Q3HRT PRN PRN Reason: Shortness Of Breath Aspirin (Halfprin Ec) 81 mg PO DAILY [facility] Last Admin: 12/22/18 09:12 Dose: 81 mg Documented by: Atorvastatin Calcium (Lipitor) 40 mg PO QHS [facility] Carvedilol (Coreg) 25 mg PO BID [facility] Last Admin: 12/22/18 09:12 Dose: 25 mg Documented by: Dextrose (D50w (25gm) Syringe) 50 ml IV PRN PRN PRN Reason: Hypoglycemia Famotidine (Pepcid) 20 mg PO BID [facility] Last Admin: 12/22/18 09:12 Dose: 20 mg Documented by: Hydromorphone HCl (Dilaudid) 0.5 mg IV Q3H PRN PRN Reason: Pain , Severe (7-10) Last Admin: 12/22/18 16:37 Dose: 0.5 mg Documented by: Heparin Sodium/Sodium Chloride (Heparin/ 0.45% Nacl-25,000 Unit/500 Ml) 25,000 unit in 500 mls @ 20 mls/hr IV TITRATE [facility]; Protocol Last Titration: 12/22/18 17:59 Dose: 1,600 units/hr, 32 mls/hr Documented by: Insulin Glargine (Lantus) 10 units SUB-Q QHS CODY Insulin Human Lispro (Humalog) 0 unit SUB-Q ACHS [facility]; Protocol Last Admin: 12/22/18 17:06 Dose: Not Given Documented by: Insulin Human Regular (Humulin R) 3 units SUB-Q AC [facility] Last Admin: 12/22/18 17:06 Dose: Not Given Documented by: Morphine Sulfate (Morphine) 2 mg IV Q4H PRN PRN Reason: Pain, Moderate (4-6) Stop: 12/22/18 23:59 Last Admin: 12/22/18 14:28 Dose: 2 mg Documented by: Nitroglycerin (Nitrostat) 0.4 mg SL .Q5MIN PRN PRN Reason: Chest Pain Ondansetron HCl (Zofran) 4 mg IV Q8H PRN PRN Reason: Nausea And Vomiting Sodium Chloride (Sodium Chloride Flush Syringe 10 Ml) 10 ml IV BID [facility] Last Admin: 12/22/18 09:13 Dose: 10 ml Documented by: Sodium Chloride (Sodium Chloride Flush Syringe 10 Ml) 10 ml IV PRN PRN PRN Reason: LINE FLUSH Review of Systems All systems: negative (Constitutional: no fever or chills. No anorexia or weight loss. HEENT: No sore throat or sinus drainage no hearing or vision impairment . Cardiovascular: See history of present illness Respiratory: No cough, sputum, shortness of breath, hemoptysis or wheezing. Gastrointestinal: No nausea, vomiting, diarrhea, abdominal pain, hematemesis or melena. Genitourinary: No frequency urgency dysuria or hematuria. hematologic: No abnormal bleeding or bruising. Integumentary: no pruritus or rash. Neurological: No headache no focal weakness or numbness, no syncope or seizures. Admits to dizziness on getting up Musculoskeletal: Has pain in his legs. No stiffness. Psychiatry: no anxiety or depression) Exam - Vital Signs Vital signs: Vital Signs Temp Pulse Resp BP Pulse Ox 98.4 F 82 22 132/97 96 12/21/18 21:49 12/21/18 21:49 12/21/18 21:49 12/21/18 21:49 12/21/18 21:49 - Physical Exam Narrative exam: Morbidly obese young -[place] male lying in bed in no acute distress HEENT: NCAT, pink oral mucous membrane Neck: Supple, no venous distention CVS: S1S2 RRR with no murmur, rub or gallop Chest: Clear to auscultation Abdomen:Obese, soft, nontender, no organomegaly, bowel sounds are present Extremities: 2 Plus pitting edema edema both legs and feet right more than left with tenderness Skin: Pigmentary changes both legs and feet. Genitourinary deferred Neuro: Awake, alert no focal deficits Results - Lab Results 12/23/18 04:36 12/23/18 04:36 Most recent lab results Calcium 8.9 mg/dL (8.4-10.2) 12/22/18 06:18 Assessment and Plan - Patient Problems (1) Other acute kidney failure Current Visit: Yes Status: Acute Plan to address problem: Pre-renal azotemia secondary to acute cardiorenal syndrome superimposed on chronic kidney disease probably chronic cardiorenal syndrome versus diabetic nephropathy/hypertensive nephrosclerosis. Agree with holding metformin with the worsening kidney function. Obtain urine studies. Gets kidney and bladder ultrasound. Follow-up electrolytes and renal function (2) Hyperkalemia Current Visit: Yes Status: Acute Plan to address problem: Agree with holding angiotensin receptor nilson. Treat hyperkalemia medically and follow-up level (3) Hyponatremia Current Visit: Yes Status: Acute Plan to address problem: Hypervolemic hyponatremia secondary to heart failure. We will resume gentle diuresis (4) Acute on chronic systolic (congestive) heart failure Current Visit: No Status: Acute Plan to address problem: Gentle diuresis with close monitoring of electrolytes and renal function (5) Bilateral lower extremity edema Current Visit: Yes Status: Acute Plan to address problem: Follow-up bilateral lower extremity duplex ultrasound to exclude deep enterolysis. (6) Type 2 diabetes mellitus with diabetic chronic kidney disease Current Visit: Yes Status: Acute Plan to address problem: Blood sugar management by primary attending (7) Hypertensive chronic kidney disease with stage 1 through stage 4 chronic kidney disease, or unspecified chronic kidney disease Current Visit: Yes Status: Acute Plan to address problem: Follow-up blood pressure on current medications.
--- NOTE | 2018-12-22 23:34 | Progress Note ---
Assessment and Plan Assessment and plan: 33-year-old morbidly obese -[place] male with history of systolic heart failure, CAD, dilated nonischemic cardiomyopathy with ejection fraction 10- 15%(Echo 02/28), status post AICD, right lower extremity DVT PE, lymph edema R>L, hypertension, diabetes, and chronic renal failure who presents to [facility] ED with complaints of worsening bilateral lower extremity edema, bilateral lower extremity pain and chest pain. He is an established patient of at [facility] and is followed by [facility] during [facility] admissions. CXR showed small right pleural effusion. Troponin elevated at 0.446, BNP elevated at 2673. EKG revealed acute ischemic abnormalities. Will admit to telemetry for further evaluation. Acute ON chronic HFREF Lower ext Edema secondary to medical non complaince in the setting of cardiomyopathy Dilated nonischemic cardiomyopathy with EF 10-15% Hyperkalemia Hyponatremia REJI on chronic renal failure Anemia DM 2 with hyperglycemia Right lower extremity DVT on Coumadin S/P AICD Type 2 NSTEMI Lymphedema R>L Morbid obesity LBBB Plan: Continue supportive care Continuous telemetry monitoring Continue heparin drip Cardiology consult pending Trend troponin Monitor renal function; BUN/Cr on admission 56/2.0 Nephrology consult pending Monitor Hgb transfusions when necessary Monitor electrolytes, replete as needed Kayexalate 30 mg 1 given Monitor BP Resume home Losartan 25 mg daily, Coreg 25 mg twice a day ASA 81 mg daily, Lipitor 40 mg daily at bedtime POC BG monitor HgbA1C pending Schedule Premeal insulin and Lantus; SSI coverage Bilateral lower extremity Doppler pending DVT PPX on heparin gtt History Interval history: Patient seen and examined, reports some improvement but still with some shortness of breath. Hospitalist Physical - Physical exam Narrative exam: VITAL SIGNS: Reviewed. GENERAL: The patient appeared well nourished and normally developed, Vital signs as documented. HEAD: No signs of head trauma. EYES: Pupils are equal. Extraocular motions intact. EARS: Hearing grossly intact. MOUTH: Oropharynx is normal. NECK: No adenopathy, no JVD. CHEST: Chest with Diminished breath sounds bilaterally. No wheezes, rales, or rhonchi. CARDIAC: Regular rate and rhythm. S1 and S2, without murmurs, gallops, or rubs. VASCULAR: Lymphedema . Peripheral pulses normal and equal in all extremities. ABDOMEN: Soft, non tender and non distended. No rebound or guarding, and no masses palpated. Bowel Sounds normal. MUSCULOSKELETAL: Good range of motion of all major joints. Extremities without clubbing, cyanosis. lymphedema R>L, worsening BLE edema R>L. NEUROLOGIC EXAM: Alert and oriented x 3 No focal sensory or strength deficits. Speech normal. Follows commands. PSYCHIATRIC: Mood normal. SKIN: Tattoes. - Constitutional Vitals: Temp Pulse Resp BP Pulse Ox 98.3 F 68 18 115/64 93 12/22/18 11:53 12/22/18 18:00 12/22/18 11:53 12/22/18 17:03 12/22/18 17:03 General appearance: Present: no acute distress Results - Labs CBC & Chem 7: 12/23/18 04:36 12/23/18 04:36 Labs: Laboratory Last Values WBC 4.9 K/mm3 (4.5-11.0) 12/22/18 06:18 RBC 4.58 M/mm3 (3.65-5.03) 12/22/18 06:18 Hgb 10.0 gm/dl (11.8-15.2) L 12/22/18 06:18 Hct 33.0 % (35.5-45.6) L 12/22/18 06:18 MCV 72 fl (84-94) L 12/22/18 06:18 MCH 22 pg (28-32) L 12/22/18 06:18 MCHC 30 % (32-34) L 12/22/18 06:18 RDW 22.9 % (13.2-15.2) H 12/22/18 06:18 Plt Count 208 K/mm3 (140-440) 12/22/18 06:18 Add Manual Diff Complete 12/22/18 06:18 Total Counted 100 12/22/18 06:18 Seg Neuts % (Manual) 57.0 % (40.0-70.0) 12/22/18 06:18 0 % 12/22/18 06:18 31.0 % (13.4-35.0) 12/22/18 06:18 Reactive Lymphs % (Man) 0 % 12/22/18 06:18 10.0 % (0.0-7.3) H 12/22/18 06:18 0 % (0.0-4.3) 12/22/18 06:18 0 % (0.0-1.8) 12/22/18 06:18 0 % 12/22/18 06:18 2.0 % 12/22/18 06:18 0 % 12/22/18 06:18 0 % 12/22/18 06:18 Nucleated RBC % 15.0 % (0.0-0.9) H 12/22/18 06:18 Seg Neutrophils # Man 2.8 K/mm3 (1.8-7.7) 12/22/18 06:18 Band Neutrophils # 0.0 K/mm3 12/22/18 06:18 1.5 K/mm3 (1.2-5.4) 12/22/18 06:18 Abs React Lymphs (Man) 0.0 K/mm3 12/22/18 06:18 0.5 K/mm3 (0.0-0.8) 12/22/18 06:18 0.0 K/mm3 (0.0-0.4) 12/22/18 06:18 0.0 K/mm3 (0.0-0.1) 12/22/18 06:18 0.0 K/mm3 12/22/18 06:18 0.1 K/mm3 12/22/18 06:18 0.0 K/mm3 12/22/18 06:18 Blast Cells # 0.0 K/mm3 12/22/18 06:18 WBC Morphology Not Reportable 12/22/18 06:18 Hypersegmented Neuts Not Reportable 12/22/18 06:18 Hyposegmented Neuts Not Reportable 12/22/18 06:18 Hypogranular Neuts Not Reportable 12/22/18 06:18 Not Reportable 12/22/18 06:18 Not Reportable 12/22/18 06:18 Not Reportable 12/22/18 06:18 Not Reportable 12/22/18 06:18 Not Reportable 12/22/18 06:18 Not Reportable 12/22/18 06:18 Consistent w auto 12/22/18 06:18 Not Reportable 12/22/18 06:18 Plt Clumps, EDTA Not Reportable 12/22/18 06:18 Not Reportable 12/22/18 06:18 Rare 12/22/18 06:18 Not Reportable 12/22/18 06:18 Plt Morphology Comment Not Reportable 12/22/18 06:18 RBC Morphology Not Reportable 12/22/18 06:18 Dimorphic RBCs Not Reportable 12/22/18 06:18 Few 12/22/18 06:18 2+ 12/22/18 06:18 1+ 12/22/18 06:18 1+ 12/22/18 06:18 Not Reportable 12/22/18 06:18 Not Reportable 12/22/18 06:18 Not Reportable 12/22/18 06:18 Not Reportable 12/22/18 06:18 Not Reportable 12/22/18 06:18 1+ 12/22/18 06:18 Not Reportable 12/22/18 06:18 Few 12/22/18 06:18 Not Reportable 12/22/18 06:18 Not Reportable 12/22/18 06:18 Not Reportable 12/22/18 06:18 Not Reportable 12/22/18 06:18 Not Reportable 12/22/18 06:18 Not Reportable 12/22/18 06:18 Not Reportable 12/22/18 06:18 Acanthocytes (Spur) Not Reportable 12/22/18 06:18 Rouleaux Not Reportable 12/22/18 06:18 Not Reportable 12/22/18 06:18 Rare 12/22/18 06:18 Not Reportable 12/22/18 06:18 Not Reportable 12/22/18 06:18 Hem Pathologist Commnt No 12/22/18 06:18 PT 21.8 Sec. (12.2-14.9) H 12/21/18 21:53 INR 1.77 (0.87-1.13) H 12/21/18 21:53 APTT 44.0 Sec. (24.2-36.6) H 12/21/18 21:53 Heparin Anti-Xa Level 0.35 U.I./ml (0.3-0.7) 12/22/18 16:46 Sodium 129 mmol/L (137-145) L 12/22/18 06:18 Potassium 5.1 mmol/L (3.6-5.0) H 12/22/18 06:18 Chloride 93.2 mmol/L (98-107) L 12/22/18 06:18 Carbon Dioxide 24 mmol/L (22-30) 12/22/18 06:18 17 mmol/L 12/22/18 06:18 BUN 54 mg/dL (9-20) H 12/22/18 06:18 2.0 mg/dL (0.8-1.5) H 12/22/18 06:18 Estimated GFR 47 ml/min 12/22/18 06:18 27 % 12/22/18 06:18 Glucose 106 mg/dL (75-100) H 12/22/18 06:18 POC Glucose 114 (70-105) H 12/22/18 20:54 7.5 % (4-6) H 12/22/18 00:12 Calcium 8.9 mg/dL (8.4-10.2) 12/22/18 06:18 1.40 mg/dL (0.1-1.2) H 12/21/18 21:53 AST 57 units/L (5-40) H 12/21/18 21:53 ALT 57 units/L (7-56) H 12/21/18 21:53 104 units/L (35-129) 12/21/18 21:53 0.393 ng/mL (0.00-0.029) H* 12/22/18 00:12 NT-Pro-B Natriuret Pep 2673 pg/mL (0-450) H 12/21/18 21:53 7.1 g/dL (6.3-8.2) 12/21/18 21:53 3.7 g/dL (3.9-5) L 12/21/18 21:53 1.1 % 12/21/18 21:53 Triglycerides 56 mg/dL (2-149) 12/21/18 21:53 Cholesterol 67 mg/dL (50-199) 12/21/18 21:53 29 mg/dL (50-130) L 12/21/18 21:53 32 mg/dL (40-59) L 12/21/18 21:53 2.09 % 12/21/18 21:53 Active Medications - Current Medications Current Medications: Generic Name Dose Route Start Last Admin Trade Name Litq PRN Reason Stop Dose Admin Acetaminophen 650 mg 12/21/18 23:50 Tylenol PO Q4H PRN Pain MILD(1-3)/Fever >100.5/ROBERSON Albuterol 2.5 mg 12/21/18 23:50 Proventil IH Q3HRT PRN Shortness Of Breath Aspirin 81 mg 12/22/18 10:00 12/22/18 09:12 Halfprin Ec PO 81 mg DAILY [facility] Administration Atorvastatin Calcium 40 mg 12/22/18 22:00 Lipitor PO QHS [facility] Carvedilol 25 mg 12/22/18 10:00 12/22/18 09:12 Coreg PO 25 mg BID [facility] Administration Dextrose 50 ml 12/21/18 23:57 D50w (25gm) Syringe IV PRN PRN Hypoglycemia Famotidine 20 mg 12/22/18 10:00 12/22/18 09:12 Pepcid PO 20 mg BID [facility] Administration Hydromorphone HCl 0.5 mg 12/21/18 23:52 12/22/18 19:30 Dilaudid IV 0.5 mg Q3H PRN Administration Pain , Severe (7-10) Heparin Sodium/Sodium Chloride 25,000 unit in 500 mls @ 20 mls/hr 12/21/18 23:45 12/22/18 17:59 Heparin/ 0.45% Nacl-25,000 Unit/500 Ml IV 1,600 units/hr TITRATE [facility] 32 mls/hr Titration Protocol 1,000 UNITS/HR Insulin Glargine 10 units 12/22/18 22:00 Lantus SUB-Q QHS [facility] Insulin Human Lispro 0 unit 12/22/18 07:30 12/22/18 17:06 Humalog SUB-Q Not [facility] Protocol Insulin Human Regular 3 units 12/22/18 07:30 12/22/18 17:06 Humulin R SUB-Q Not Given [facility] Morphine Sulfate 2 mg 12/21/18 23:50 12/22/18 14:28 Morphine IV 12/22/18 23:59 2 mg Q4H PRN Administration Pain, Moderate (4-6) Nitroglycerin 0.4 mg 12/21/18 23:52 Nitrostat SL .Q5MIN PRN Chest Pain Ondansetron HCl 4 mg 12/21/18 23:50 Zofran IV Q8H PRN Nausea And Vomiting Sodium Chloride 10 ml 12/22/18 10:00 12/22/18 09:13 Sodium Chloride Flush Syringe 10 Ml IV 10 ml BID CODY Administration Sodium Chloride 10 ml 12/21/18 23:50 Sodium Chloride Flush Syringe 10 Ml IV PRN PRN LINE FLUSH Nutrition/Malnutrition Assess - Dietary Evaluation Nutrition/Malnutrition Findings: Nutrition Notes Start: 12/22/18 15:31 Freq: Status: Active Protocol: Document 12/22/18 15:31 BRANDEE (Rec: 12/22/18 15:42 BRANDEE [email or web address]) Nutrition Notes Need for Assessment generated from: MD Order,Education Initial or Follow up Brief Note Current Diagnosis Coronary Artery Disease, Diabetes,Hypertension,Heart Failure Other Pertinent Diagnosis Bilat LE edema, Chest pain Current Diet Cardiac/Consistent CHO Labs/Tests BNP 2673 Na 129 K 5.1 BUN 54 Cr 2 A1C 7.5 Height 6 ft 1 in Weight 234.507 kg Edwards Body Weight (kg) 83.63 BMI 68.2 Weight Status Morbidly Obese Subjective/Other Information RD consulted for diet education. Pt very receptive to diet education; says he will start monitoring sodium intake more he has been in the past. He reports good appetite; wants more food at meal times. #1 Nutrition Diagnosis Altered nutrition-related laboratory values Etiology HF As Evidenced by Signs and Symptoms elevated BNP and hyponatremia Nutrition Intervention Change Diet Order: Double pro portions at meal times Teaching Recipient Patient Learning Readiness Good Teaching Methods Discussion,Handout Response to Teaching Verbalize understanding Education Handouts Provided Heart Failure Nutrition Therapy Barriers to Learning No Barriers RD phone number provided Yes Patient aware of follow up options Yes Goal #1 Limit Na intake to no more than 2300mg daily Goal #2 Improved fluid status Anticipated Discharge Needs: Low Na/CHO-controlled diet Revisit per MD consult or patient Sign Off request:
[2018-12-23] MEDS: COREG PO SCH ×3 (01:15→22:29)
[2018-12-23] MEDS: LANTUS SUB-Q SCH ×2 (01:16→22:32)
[2018-12-23] MEDS: PEPCID PO SCH ×3 (01:16→22:29)
[2018-12-23] MEDS: HumaLOG SUB-Q SCH ×5 (01:16→22:31)
[2018-12-23] MEDS: SODIUM CHLORIDE FLUSH SYRINGE 10 ML IV SCH ×3 (01:16→22:32)
[2018-12-23] MEDS: DILAUDID IV PRN ×6 (02:23→20:28)
[2018-12-23] MEDS: ROXICODONE PO PRN ×4 (03:38→19:06)
[2018-12-23] MEDS: PERCOCET 5/325 PO PRN ×2 (03:38→22:54)
[2018-12-23 05:18] LABS: Mean Corpuscular HGB Conc 30 % (32-34); Mean Corpuscular Volume 72 fl (84-94); Platelet Count 198 K/mm3 (140-440)
[2018-12-23 05:21] LABS: Hematocrit 32.3 % (35.5-45.6); Hemoglobin 9.7 gm/dl (11.8-15.2)
[2018-12-23 05:40] LABS: Calcium 8.9 mg/dL (8.4-10.2)
[2018-12-23] MEDS: HumuLIN R SUB-Q SCH ×3 (08:15→18:47)
[2018-12-23] MEDS: HEPARIN/ 0.45% NACL-25,000 UNIT/500 ML 25,000 UNIT/500 ML BAG IV SCH (08:32)
[2018-12-23] MEDS: HALFPRIN EC PO SCH (10:01)
--- NOTE | 2018-12-23 10:50 | Progress Note ---
Assessment and Plan Assessment: Acute on chronic HFrEF Dilated NICMP - EF 10-15% AICD in situ Atypical chest pain - ECG with no acute ischemic changes; currently resolved NSTEMI type II - Nicol trending downwards REJI / hyperkalemia Hyponatremia RLE DVT / subtherapeutic INR Frequent PVCs and NSVT LBBB HTN DM Morbid obesity Lymphedema Anemia Plan: Cont present cardiac management. Diuresis per nephrology. Troponin elevation appears c/w NSTEMI type II. Can d/c heparin gtt from cardiology standpoint. The patient has been seen in conjunction with Dr. Bowling who agrees with the assessment and plan of care. Subjective Date of service: 12/23/18 Principal diagnosis: HF Interval history: pt resting in bed, states he is feeling a little better today. Objective Last Vital Signs Temp 97.5 F L 12/23/18 07:19 Pulse 79 12/23/18 09:00 Resp 18 12/23/18 07:19 BP 136/91 12/23/18 07:19 Pulse Ox 99 12/23/18 07:19 - Physical Examination General: No Apparent Distress HEENT: Positive: PERRL, Normocephaly, Mucus Membranes Moist Neck: Positive: neck supple, trachea midline Cardiac: Positive: Reg Rate and Rhythm, S1/S2 Lungs: Positive: Decreased Breath Sounds Neuro: Positive: Grossly Intact Abdomen: Positive: Soft Skin: Negative: Rash, Wound Musculoskeletal: No Pain Extremities: Present: Other (lymphedema R>L) - Labs and Meds CBC 12/23/18 Range/Units 04:36 WBC 4.1 L (4.5-11.0) K/mm3 RBC 4.50 (3.65-5.03) M/mm3 Hgb 9.7 L (11.8-15.2) gm/dl Hct 32.3 L (35.5-45.6) % Plt Count 198 (140-440) K/mm3 Comprehensive Metabolic Panel 12/23/18 Range/Units 04:36 Sodium 126 L (137-145) mmol/L Potassium 5.9 H (3.6-5.0) mmol/L Chloride 92.3 L (98-107) mmol/L Carbon Dioxide 21 L (22-30) mmol/L BUN 51 H (9-20) mg/dL Creatinine 1.7 H (0.8-1.5) mg/dL Glucose 155 H (75-100) mg/dL Calcium 8.9 (8.4-10.2) mg/dL - Imaging and Cardiology EKG: report reviewed, image reviewed Echo: report reviewed (02/18/2018 at [place] showed EF 10-15%, LV severely dilated, LA severely dilated, mod TR, grade 2 diastolic dysfunction, mod MR, mod reduced RV systolic function, RVSP 25.2mmHg. ) Cardiac cath: report reviewed (C and RHC at [place] on 10/24/2017 which showed angiographically normal coronary arteries, normal right-sided filling pressures with a mean RA pressure of 5 mmHg, mildly elevated pulmonary artery pressures with a mean PA pressure of 27 mmHg and PA pressure was 38/16mmHG, mildly elevated left-sided filling pressures with a mean PCWP of 18 mmHg with a directly measured LVEDP of 20 mmHg, normal cardiac output with a CO of 5.74 L/min with a cardiac index of 1.82 L/min/m2 using a the Albaro equation.) - EKG Sinus rhythms and dysrhythmias: sinus rhythm
[2018-12-23] MEDS ORDERED: KIONEX PO ONE (11:47)
[2018-12-23] MEDS ORDERED: COUMADIN PO SCH ×2 (17:00)
--- NOTE | 2018-12-23 17:01 | Progress Note ---
Assessment and Plan Assessment and plan: 33-year-old morbidly obese -[place] male with history of systolic heart failure, CAD, dilated nonischemic cardiomyopathy with ejection fraction 10- 15%(Echo 02/28), status post AICD, right lower extremity DVT PE, lymph edema R>L, hypertension, diabetes, and chronic renal failure who presents to [facility] ED with complaints of worsening bilateral lower extremity edema, bilateral lower extremity pain and chest pain. He is an established patient of at [facility] and is followed by [facility] during [facility] admissions. CXR showed small right pleural effusion. Troponin elevated at 0.446, BNP elevated at 2673. EKG revealed acute ischemic abnormalities. Will admit to telemetry for further evaluation. Acute ON chronic HFREF Lower ext Edema secondary to medical non complaince in the setting of cardiomyopathy Dilated nonischemic cardiomyopathy with EF 10-15% Hyperkalemia Hyponatremia REJI on chronic renal failure SECONDARY TO VASOMOTOR NEPHROPATHY Anemia DM 2 with hyperglycemia Right lower extremity DVT on Coumadin S/P AICD Type 2 NSTEMI Lymphedema R>L Morbid obesity LBBB Plan: Continue supportive care Give additional kayxalate Stop Heparin drip Warfarin resumed Nephrology and cardiology input noted -Troponin elevation pattern appears c/w NSTEMI type II. Will cont to trend Nicol and repeat ECG in AM. Pt's current weight exceeds weight limit for stress test or cardiac catheterization at this facility . Monitor electrolytes, replete as needed Monitor BP hold Losartan 25 mg daily, start Coreg 25 mg twice a day ASA 81 mg daily, Lipitor 40 mg daily at bedtime POC BG monitor HgbA1C pending Schedule Premeal insulin and Lantus; SSI coverage Bilateral lower extremity Doppler pending DVT PPX Plan of care discussed with the patient History Interval history: Patient seen and examined, reports some improvement but still with some shortness of breath but improving with diauresis Hospitalist Physical - Physical exam Narrative exam: VITAL SIGNS: Reviewed. GENERAL: The patient appeared well nourished and normally developed, Vital signs as documented. HEAD: No signs of head trauma. EYES: Pupils are equal. Extraocular motions intact. EARS: Hearing grossly intact. MOUTH: Oropharynx is normal. NECK: No adenopathy, no JVD. CHEST: Chest with Diminished breath sounds bilaterally. No wheezes, rales, or rhonchi. CARDIAC: Regular rate and rhythm. S1 and S2, without murmurs, gallops, or rubs. VASCULAR: Lymphedema . Peripheral pulses normal and equal in all extremities. ABDOMEN: Soft, non tender and non distended. No rebound or guarding, and no masses palpated. Bowel Sounds normal. MUSCULOSKELETAL: Good range of motion of all major joints. Extremities without clubbing, cyanosis. lymphedema R>L, worsening BLE edema R>L. NEUROLOGIC EXAM: Alert and oriented x 3 No focal sensory or strength deficits. Speech normal. Follows commands. PSYCHIATRIC: Mood normal. SKIN: Tattoes. - Constitutional Vitals: Temp Pulse Resp BP Pulse Ox 97.8 F 68 20 149/87 93 12/23/18 11:42 12/23/18 11:42 12/23/18 11:42 12/23/18 11:42 12/23/18 11:42 General appearance: Present: no acute distress Results - Labs CBC & Chem 7: 12/23/18 04:36 12/23/18 04:36 Labs: Laboratory Last Values WBC 4.1 K/mm3 (4.5-11.0) L 12/23/18 04:36 RBC 4.50 M/mm3 (3.65-5.03) 12/23/18 04:36 Hgb 9.7 gm/dl (11.8-15.2) L 12/23/18 04:36 Hct 32.3 % (35.5-45.6) L 12/23/18 04:36 MCV 72 fl (84-94) L 12/23/18 04:36 MCH 22 pg (28-32) L 12/23/18 04:36 MCHC 30 % (32-34) L 12/23/18 04:36 RDW 23.0 % (13.2-15.2) H 12/23/18 04:36 Plt Count 198 K/mm3 (140-440) 12/23/18 04:36 Add Manual Diff Complete 12/22/18 06:18 Total Counted 100 12/22/18 06:18 Seg Neuts % (Manual) 57.0 % (40.0-70.0) 12/22/18 06:18 0 % 12/22/18 06:18 31.0 % (13.4-35.0) 12/22/18 06:18 Reactive Lymphs % (Man) 0 % 12/22/18 06:18 10.0 % (0.0-7.3) H 12/22/18 06:18 0 % (0.0-4.3) 12/22/18 06:18 0 % (0.0-1.8) 12/22/18 06:18 0 % 12/22/18 06:18 2.0 % 12/22/18 06:18 0 % 12/22/18 06:18 0 % 12/22/18 06:18 Nucleated RBC % 15.0 % (0.0-0.9) H 12/22/18 06:18 Seg Neutrophils # Man 2.8 K/mm3 (1.8-7.7) 12/22/18 06:18 Band Neutrophils # 0.0 K/mm3 12/22/18 06:18 1.5 K/mm3 (1.2-5.4) 12/22/18 06:18 Abs React Lymphs (Man) 0.0 K/mm3 12/22/18 06:18 0.5 K/mm3 (0.0-0.8) 12/22/18 06:18 0.0 K/mm3 (0.0-0.4) 12/22/18 06:18 0.0 K/mm3 (0.0-0.1) 12/22/18 06:18 0.0 K/mm3 12/22/18 06:18 0.1 K/mm3 12/22/18 06:18 0.0 K/mm3 12/22/18 06:18 Blast Cells # 0.0 K/mm3 12/22/18 06:18 WBC Morphology Not Reportable 12/22/18 06:18 Hypersegmented Neuts Not Reportable 12/22/18 06:18 Hyposegmented Neuts Not Reportable 12/22/18 06:18 Hypogranular Neuts Not Reportable 12/22/18 06:18 Not Reportable 12/22/18 06:18 Not Reportable 12/22/18 06:18 Not Reportable 12/22/18 06:18 Not Reportable 12/22/18 06:18 Not Reportable 12/22/18 06:18 Not Reportable 12/22/18 06:18 Consistent w auto 12/22/18 06:18 Not Reportable 12/22/18 06:18 Plt Clumps, EDTA Not Reportable 12/22/18 06:18 Not Reportable 12/22/18 06:18 Rare 12/22/18 06:18 Not Reportable 12/22/18 06:18 Plt Morphology Comment Not Reportable 12/22/18 06:18 RBC Morphology Not Reportable 12/22/18 06:18 Dimorphic RBCs Not Reportable 12/22/18 06:18 Few 12/22/18 06:18 2+ 12/22/18 06:18 1+ 12/22/18 06:18 1+ 12/22/18 06:18 Not Reportable 12/22/18 06:18 Not Reportable 12/22/18 06:18 Not Reportable 12/22/18 06:18 Not Reportable 12/22/18 06:18 Not Reportable 12/22/18 06:18 1+ 12/22/18 06:18 Not Reportable 12/22/18 06:18 Few 12/22/18 06:18 Not Reportable 12/22/18 06:18 Not Reportable 12/22/18 06:18 Not Reportable 12/22/18 06:18 Not Reportable 12/22/18 06:18 Not Reportable 12/22/18 06:18 Not Reportable 12/22/18 06:18 Not Reportable 12/22/18 06:18 Acanthocytes (Spur) Not Reportable 12/22/18 06:18 Rouleaux Not Reportable 12/22/18 06:18 Not Reportable 12/22/18 06:18 Rare 12/22/18 06:18 Not Reportable 12/22/18 06:18 Not Reportable 12/22/18 06:18 Hem Pathologist Commnt No 12/22/18 06:18 PT 21.8 Sec. (12.2-14.9) H 12/21/18 21:53 INR 1.77 (0.87-1.13) H 12/21/18 21:53 APTT 44.0 Sec. (24.2-36.6) H 12/21/18 21:53 Heparin Anti-Xa Level 0.35 U.I./ml (0.3-0.7) 12/22/18 16:46 Sodium 126 mmol/L (137-145) L 12/23/18 04:36 Potassium 5.9 mmol/L (3.6-5.0) H 12/23/18 04:36 Chloride 92.3 mmol/L (98-107) L 12/23/18 04:36 Carbon Dioxide 21 mmol/L (22-30) L 12/23/18 04:36 19 mmol/L 12/23/18 04:36 BUN 51 mg/dL (9-20) H 12/23/18 04:36 1.7 mg/dL (0.8-1.5) H 12/23/18 04:36 Estimated GFR 57 ml/min 12/23/18 04:36 30 % 12/23/18 04:36 Glucose 155 mg/dL (75-100) H 12/23/18 04:36 POC Glucose 136 (70-105) H 12/23/18 11:29 7.5 % (4-6) H 12/22/18 00:12 Calcium 8.9 mg/dL (8.4-10.2) 12/23/18 04:36 1.40 mg/dL (0.1-1.2) H 12/21/18 21:53 AST 57 units/L (5-40) H 12/21/18 21:53 ALT 57 units/L (7-56) H 12/21/18 21:53 104 units/L (35-129) 12/21/18 21:53 0.324 ng/mL (0.00-0.029) H* 12/23/18 04:36 NT-Pro-B Natriuret Pep 2673 pg/mL (0-450) H 12/21/18 21:53 7.1 g/dL (6.3-8.2) 12/21/18 21:53 3.7 g/dL (3.9-5) L 12/21/18 21:53 1.1 % 12/21/18 21:53 Triglycerides 56 mg/dL (2-149) 12/21/18 21:53 Cholesterol 67 mg/dL (50-199) 12/21/18 21:53 29 mg/dL (50-130) L 12/21/18 21:53 32 mg/dL (40-59) L 12/21/18 21:53 2.09 % 12/21/18 21:53 Active Medications - Current Medications Current Medications: Generic Name Dose Route Start Last Admin Trade Name Freq PRN Reason Stop Dose Admin Acetaminophen 650 mg 12/21/18 23:50 Tylenol PO Q4H PRN Pain MILD(1-3)/Fever >100.5/ROBERSON Albuterol 2.5 mg 12/21/18 23:50 Proventil IH Q3HRT PRN Shortness Of Breath Aspirin 81 mg 12/22/18 10:00 12/23/18 10:01 Halfprin Ec PO 81 mg DAILY [facility] Administration Atorvastatin Calcium 40 mg 12/22/18 22:00 12/23/18 01:16 Lipitor PO Not Given QHS [facility] Carvedilol 25 mg 12/22/18 10:00 12/23/18 10:01 Coreg PO 25 mg BID [facility] Administration Dextrose 50 ml 12/21/18 23:57 D50w (25gm) Syringe IV PRN PRN Hypoglycemia Famotidine 20 mg 12/22/18 10:00 12/23/18 10:01 Pepcid PO 20 mg BID [facility] Administration Hydromorphone HCl 0.5 mg 12/21/18 23:52 12/23/18 13:50 Dilaudid IV 0.5 mg Q3H PRN Administration Pain , Severe (7-10) Insulin Glargine 10 units 12/22/18 22:00 12/23/18 01:16 [facility] Human Lispro 0 unit 12/22/18 07:30 12/23/18 13:18 Humalog SUB-Q Not Given [facility] Protocol Insulin Human Regular 3 units 12/22/18 07:30 12/23/18 13:18 Humulin R SUB-Q Not Given [facility] Nitroglycerin 0.4 mg 12/21/18 23:52 Nitrostat SL .Q5MIN PRN Chest Pain Ondansetron HCl 4 mg 12/21/18 23:50 Zofran IV Q8H PRN Nausea And Vomiting Oxycodone HCl 5 mg 12/23/18 02:15 12/23/18 12:02 Roxicodone PO 5 mg Q4H PRN Administration Pain, Moderate (4-6) Oxycodone/Acetaminophen 1 tab 12/23/18 02:14 12/23/18 03:38 Percocet 5/325 PO 1 tab Q4H PRN Administration Pain, Moderate (4-6) Sodium Chloride 10 ml 12/22/18 10:00 12/23/18 10:02 Sodium Chloride Flush Syringe 10 Ml IV 10 ml BID [facility] Administration Sodium Chloride 10 ml 12/21/18 23:50 Sodium Chloride Flush Syringe 10 Ml IV PRN PRN LINE FLUSH Warfarin Sodium 10 mg 12/23/18 17:00 Coumadin PO DAILY [facility] Protocol Nutrition/Malnutrition Assess - Dietary Evaluation Nutrition/Malnutrition Findings: Nutrition Notes Start: 12/22/18 15:31 Freq: Status: Active Protocol: Document 12/22/18 15:31 BRANDEE (Rec: 12/22/18 15:42 MTCARROLL [email or web address]) Nutrition Notes Need for Assessment generated from: MD Order,Education Initial or Follow up Brief Note Current Diagnosis Coronary Artery Disease, Diabetes,Hypertension,Heart Failure Other Pertinent Diagnosis Bilat LE edema, Chest pain Current Diet Cardiac/Consistent CHO Labs/Tests BNP 2673 Na 129 K 5.1 BUN 54 Cr 2 A1C 7.5 Height 6 ft 1 in Weight 234.507 kg Simpson Body Weight (kg) 83.63 BMI 68.2 Weight Status Morbidly Obese Subjective/Other Information RD consulted for diet education. Pt very receptive to diet education; says he will start monitoring sodium intake more he has been in the past. He reports good appetite; wants more food at meal times. #1 Nutrition Diagnosis Altered nutrition-related laboratory values Etiology HF As Evidenced by Signs and Symptoms elevated BNP and hyponatremia Nutrition Intervention Change Diet Order: Double pro portions at meal times Teaching Recipient Patient Learning Readiness Good Teaching Methods Discussion,Handout Response to Teaching Verbalize understanding Education Handouts Provided Heart Failure Nutrition Therapy Barriers to Learning No Barriers RD phone number provided Yes Patient aware of follow up options Yes Goal #1 Limit Na intake to no more than 2300mg daily Goal #2 Improved fluid status Anticipated Discharge Needs: Low Na/CHO-controlled diet Revisit per MD consult or patient Sign Off request:
--- NOTE | 2018-12-23 18:05 | Progress Note ---
Assessment and Plan - Patient Problems (1) Other acute kidney failure Current Visit: Yes Status: Acute Plan to address problem: Pre-renal azotemia secondary to acute cardiorenal syndrome superimposed on chronic kidney disease probably chronic cardiorenal syndrome versus diabetic nephropathy/hypertensive nephrosclerosis. Agree with holding metformin with the worsening kidney function. Kidney function is a bit better. Follow-up urine studies. Follow-up kidney and bladder ultrasound. Follow-up electrolytes and renal function (2) Hyperkalemia Current Visit: Yes Status: Acute Plan to address problem: Agree with holding angiotensin receptor nilson. Potassium was worse today. Aggressive medical management of hyperkalemia and then follow potassium (3) Hyponatremia Current Visit: Yes Status: Acute Plan to address problem: Hypervolemic hyponatremia secondary to heart failure. Sodium worse. We'll give a dose of Tolvaptan and follow up Sodium tomorrow (4) Acute on chronic systolic (congestive) heart failure Current Visit: No Status: Acute Plan to address problem: Gentle diuresis with close monitoring of electrolytes and renal function (5) Bilateral lower extremity edema Current Visit: Yes Status: Acute Plan to address problem: Follow-up bilateral lower extremity duplex ultrasound to exclude deep vein thrombosis. (6) Type 2 diabetes mellitus with diabetic chronic kidney disease Current Visit: Yes Status: Acute Plan to address problem: Blood sugar management by primary attending (7) Hypertensive chronic kidney disease with stage 1 through stage 4 chronic kidney disease, or unspecified chronic kidney disease Current Visit: Yes Status: Acute Plan to address problem: Follow-up blood pressure on current medications. Subjective Date of service: 12/23/18 Principal diagnosis: HF Interval history: Patient seen lying in bed. Still complains of pain and swelling of his legs. Not dyspneic at rest. Objective - Exam Narrative Exam: Morbidly obese young -[place]aj[place] male lying in bed in no acute distress HEENT: NCAT, pink oral mucous membrane Neck: Supple, no venous distention CVS: S1S2 RRR with no murmur, rub or gallop Chest: Clear to auscultation Abdomen:Obese, soft, nontender, no organomegaly, bowel sounds are present Extremities: 2 Plus pitting edema edema both legs and feet right more than left with tenderness Skin: Pigmentary changes both legs and feet. Genitourinary deferred Neuro: Awake, alert no focal deficits - Vital Signs Vital signs: Vital Signs - 12hr 12/23/18 12/23/18 12/23/18 07:19 09:00 11:42 Temperature 97.5 F L 97.8 F Pulse Rate 68 79 68 Respiratory 18 20 Rate Blood Pressure 136/91 149/87 O2 Sat by Pulse 99 93 Oximetry 12/23/18 17:34 Temperature 97.9 F Pulse Rate 68 Respiratory 16 Rate Blood Pressure 155/95 O2 Sat by Pulse 97 Oximetry - Lab 12/23/18 04:36 12/23/18 04:36 Most recent lab results Calcium 8.9 mg/dL (8.4-10.2) 12/23/18 04:36 Medications & Allergies - Medications Allergies/Adverse Reactions: Allergies prochlorperazine [From Compazine] Allergy (Verified 04/14/18 12:13) Hives Home Medications: Home Medications Medication Instructions Recorded Confirmed Last Taken Type Metformin HCl 1,000 mg PO BID 10/18/17 12/22/18 11/04/18 History Aspirin EC 81 mg PO DAILY tablet 07/11/18 12/22/18 11/04/18 Rx AtorvaSTATin [Lipitor] 40 mg PO QHS tablet 07/11/18 12/22/18 11/03/18 Rx Losartan [Cozaar] 25 mg PO QDAY tablet 07/11/18 12/22/18 11/04/18 Rx oxyCODONE [roxiCODONE] 10 mg PO Q6H PRN tablet 07/11/18 12/22/18 11/04/18 Rx Warfarin [Coumadin] 20 mg PO DAILY 08/25/18 12/22/18 11/04/18 History Carvedilol [Coreg] 25 mg PO BID 11/05/18 12/22/18 11/04/18 History Famotidine [Pepcid] 20 mg PO BID #30 tablet 11/06/18 12/22/18 Unknown Rx Torsemide [Demadex] 60 mg PO BID 12/22/18 12/22/18 Unknown History Active Medications: Generic Name Dose Route Start Last Admin Trade Name Freq PRN Reason Stop Dose Admin Acetaminophen 650 mg 12/21/18 23:50 Tylenol PO Q4H PRN Pain MILD(1-3)/Fever >100.5/ROBERSON Albuterol 2.5 mg 12/21/18 23:50 Proventil IH Q3HRT PRN Shortness Of Breath Aspirin 81 mg 12/22/18 10:00 12/23/18 10:01 Halfprin Ec PO 81 mg DAILY [facility] Administration Atorvastatin Calcium 40 mg 12/22/18 22:00 12/23/18 01:16 Lipitor PO Not Given [facility] Carvedilol 25 mg 12/22/18 10:00 12/23/18 10:01 Coreg PO 25 mg BID [facility] Administration Dextrose 50 ml 12/21/18 23:57 D50w (25gm) Syringe IV PRN PRN Hypoglycemia Famotidine 20 mg 12/22/18 10:00 12/23/18 10:01 Pepcid PO 20 mg BID [facility] Administration Hydromorphone HCl 0.5 mg 12/21/18 23:52 12/23/18 17:16 Dilaudid IV 0.5 mg Q3H PRN Administration Pain , Severe (7-10) Insulin Glargine 10 units 12/22/18 22:00 12/23/18 01:16 [facility] Human Lispro 0 unit 12/22/18 07:30 12/23/18 13:18 Humalog SUB-Q Not Given [facility] Protocol Insulin Human Regular 3 units 12/22/18 07:30 12/23/18 13:18 Humulin R SUB-Q Not Given [facility] Nitroglycerin 0.4 mg 12/21/18 23:52 Nitrostat SL .Q5MIN PRN Chest Pain Ondansetron HCl 4 mg 12/21/18 23:50 Zofran IV Q8H PRN Nausea And Vomiting Oxycodone HCl 5 mg 12/23/18 02:15 12/23/18 12:02 Roxicodone PO 5 mg Q4H PRN Administration Pain, Moderate (4-6) Oxycodone/Acetaminophen 1 tab 12/23/18 02:14 12/23/18 03:38 Percocet 5/325 PO 1 tab Q4H PRN Administration Pain, Moderate (4-6) Sodium Chloride 10 ml 12/22/18 10:00 12/23/18 10:02 Sodium Chloride Flush Syringe 10 Ml IV 10 ml BID [facility] Administration Sodium Chloride 10 ml 12/21/18 23:50 Sodium Chloride Flush Syringe 10 Ml IV PRN PRN LINE FLUSH Warfarin Sodium 10 mg 12/23/18 17:00 Coumadin PO DAILY [facility] Protocol
[2018-12-23] MEDS ORDERED: SAMSCA PO ONE (18:06)
[2018-12-23] MEDS: COUMADIN PO SCH (18:43)
[2018-12-24] MEDS: PERCOCET 5/325 PO PRN ×4 (03:04→23:05)
[2018-12-24] MEDS: DILAUDID IV PRN ×5 (04:23→21:53)
[2018-12-24] MEDS: BUMEX IV SCH ×2 (05:29→19:36)
[2018-12-24 07:23] LABS: INR 1.89 (0.87-1.13)
[2018-12-24 07:34] LABS: Calcium 8.3 mg/dL (8.4-10.2)
[2018-12-24] MEDS ORDERED: HumuLIN R IV ONE ×2 (08:05→09:00)
--- NOTE | 2018-12-24 08:12 | Progress Note ---
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 He is an established patient of at [facility] and is followed by [facility] during [facility] admissions. CXR showed small right pleural effusion. Troponin elevated at 0.446, BNP elevated at 2673. EKG revealed acute ischemic abnormalities. Will admit to telemetry for further evaluation. Acute ON chronic HFrEF Lower ext Edema secondary to medical non compliance in the setting of cardiomyopathy Dilated nonischemic cardiomyopathy with EF 10-15% Hyperkalemia-worsening Hyponatremia-persistent REJI on chronic renal failure SECONDARY TO VASOMOTOR NEPHROPATHY Anemia DM 2 with hyperglycemia Right lower extremity DVT on Coumadin S/P AICD Type 2 NSTEMI Lymphedema R>L Morbid obesity LBBB Plan: Continue supportive care Give additional kayxalate x2. give the hyperkalemia coctail Discuss with Nephrology about salt tabs Stopped Heparin drip Continue pain control Discussed with Nursing staff about obtaining the Study of lower ext Warfarin resumed Patient Received ToLvaptan x1 Nephrology and cardiology input noted -Troponin elevation pattern appears c/w NSTEMI type II. Will cont to trend Nicol and repeat ECG in AM. Pt's current weight exceeds weight limit for stress test or cardiac catheterization at this facility . Monitor electrolytes, replete as needed Monitor BP Hold Losartan 25 mg daily, start Coreg 25 mg twice a day ASA 81 mg daily, Lipitor 40 mg daily at bedtime POC BG monitor HgbA1C 7.5 Schedule Premeal insulin and Lantus; SSI coverage Bilateral lower extremity Doppler pending DVT PPX Plan of care discussed with the patient History Interval history: Patient seen and examined, reports some improvement Still with bilateral lower ext pain Hospitalist Physical - Physical exam Narrative exam: VITAL SIGNS: Reviewed. GENERAL: The patient appeared well nourished and normally developed, Vital signs as documented. HEAD: No signs of head trauma. EYES: Pupils are equal. Extraocular motions intact. EARS: Hearing grossly intact. MOUTH: Oropharynx is normal. NECK: No adenopathy, no JVD. CHEST: Chest with Diminished breath sounds bilaterally. No wheezes, rales, or rhonchi. CARDIAC: Regular rate and rhythm. S1 and S2, without murmurs, gallops, or rubs. VASCULAR: Lymphedema . Peripheral pulses normal and equal in all extremities. ABDOMEN: Soft, non tender and non distended. No rebound or guarding, and no masses palpated. Bowel Sounds normal. MUSCULOSKELETAL: Good range of motion of all major joints. Extremities without clubbing, cyanosis. lymphedema R>L, worsening BLE edema R>L. NEUROLOGIC EXAM: Alert and oriented x 3 No focal sensory or strength deficits. Speech normal. Follows commands. PSYCHIATRIC: Mood normal. SKIN: Tattoes. - Constitutional Vitals: Temp Pulse Resp BP Pulse Ox 97.5 F L 69 20 110/75 99 12/24/18 05:07 12/24/18 05:03 12/24/18 05:03 12/24/18 05:03 12/24/18 05:03 General appearance: Present: no acute distress Results - Labs CBC & Chem 7: 12/23/18 04:36 12/25/18 07:22 Labs: Laboratory Last Values WBC 4.1 K/mm3 (4.5-11.0) L 12/23/18 04:36 RBC 4.50 M/mm3 (3.65-5.03) 12/23/18 04:36 Hgb 9.7 gm/dl (11.8-15.2) L 12/23/18 04:36 Hct 32.3 % (35.5-45.6) L 12/23/18 04:36 MCV 72 fl (84-94) L 12/23/18 04:36 MCH 22 pg (28-32) L 12/23/18 04:36 MCHC 30 % (32-34) L 12/23/18 04:36 RDW 23.0 % (13.2-15.2) H 12/23/18 04:36 Plt Count 198 K/mm3 (140-440) 12/23/18 04:36 Add Manual Diff Complete 12/22/18 06:18 Total Counted 100 12/22/18 06:18 Seg Neuts % (Manual) 57.0 % (40.0-70.0) 12/22/18 06:18 0 % 12/22/18 06:18 31.0 % (13.4-35.0) 12/22/18 06:18 Reactive Lymphs % (Man) 0 % 12/22/18 06:18 10.0 % (0.0-7.3) H 12/22/18 06:18 0 % (0.0-4.3) 12/22/18 06:18 0 % (0.0-1.8) 12/22/18 06:18 0 % 12/22/18 06:18 2.0 % 12/22/18 06:18 0 % 12/22/18 06:18 0 % 12/22/18 06:18 Nucleated RBC % 15.0 % (0.0-0.9) H 12/22/18 06:18 Seg Neutrophils # Man 2.8 K/mm3 (1.8-7.7) 12/22/18 06:18 Band Neutrophils # 0.0 K/mm3 12/22/18 06:18 1.5 K/mm3 (1.2-5.4) 12/22/18 06:18 Abs React Lymphs (Man) 0.0 K/mm3 12/22/18 06:18 0.5 K/mm3 (0.0-0.8) 12/22/18 06:18 0.0 K/mm3 (0.0-0.4) 12/22/18 06:18 0.0 K/mm3 (0.0-0.1) 12/22/18 06:18 0.0 K/mm3 12/22/18 06:18 0.1 K/mm3 12/22/18 06:18 0.0 K/mm3 12/22/18 06:18 Blast Cells # 0.0 K/mm3 12/22/18 06:18 WBC Morphology Not Reportable 12/22/18 06:18 Hypersegmented Neuts Not Reportable 12/22/18 06:18 Hyposegmented Neuts Not Reportable 12/22/18 06:18 Hypogranular Neuts Not Reportable 12/22/18 06:18 Not Reportable 12/22/18 06:18 Not Reportable 12/22/18 06:18 Not Reportable 12/22/18 06:18 Not Reportable 12/22/18 06:18 Not Reportable 12/22/18 06:18 Not Reportable 12/22/18 06:18 Consistent w auto 12/22/18 06:18 Not Reportable 12/22/18 06:18 Plt Clumps, EDTA Not Reportable 12/22/18 06:18 Not Reportable 12/22/18 06:18 Rare 12/22/18 06:18 Not Reportable 12/22/18 06:18 Plt Morphology Comment Not Reportable 12/22/18 06:18 RBC Morphology Not Reportable 12/22/18 06:18 Dimorphic RBCs Not Reportable 12/22/18 06:18 Few 12/22/18 06:18 2+ 12/22/18 06:18 1+ 12/22/18 06:18 1+ 12/22/18 06:18 Not Reportable 12/22/18 06:18 Not Reportable 12/22/18 06:18 Not Reportable 12/22/18 06:18 Not Reportable 12/22/18 06:18 Not Reportable 12/22/18 06:18 1+ 12/22/18 06:18 Not Reportable 12/22/18 06:18 Few 12/22/18 06:18 Not Reportable 12/22/18 06:18 Not Reportable 12/22/18 06:18 Not Reportable 12/22/18 06:18 Not Reportable 12/22/18 06:18 Not Reportable 12/22/18 06:18 Not Reportable 12/22/18 06:18 Not Reportable 12/22/18 06:18 Acanthocytes (Spur) Not Reportable 12/22/18 06:18 Rouleaux Not Reportable 12/22/18 06:18 Not Reportable 12/22/18 06:18 Rare 12/22/18 06:18 Not Reportable 12/22/18 06:18 Not Reportable 12/22/18 06:18 Hem Pathologist Commnt No 12/22/18 06:18 PT 23.0 Sec. (12.2-14.9) H 12/24/18 06:18 INR 1.89 (0.87-1.13) H 12/24/18 06:18 APTT 44.0 Sec. (24.2-36.6) H 12/21/18 21:53 Heparin Anti-Xa Level 0.35 U.I./ml (0.3-0.7) 12/22/18 16:46 Sodium 127 mmol/L (137-145) L 12/24/18 06:18 Potassium 6.6 mmol/L (3.6-5.0) H* 12/24/18 06:18 Chloride 92.3 mmol/L (98-107) L 12/24/18 06:18 Carbon Dioxide 22 mmol/L (22-30) 12/24/18 06:18 19 mmol/L 12/24/18 06:18 BUN 50 mg/dL (9-20) H 12/24/18 06:18 1.7 mg/dL (0.8-1.5) H 12/24/18 06:18 Estimated GFR 57 ml/min 12/24/18 06:18 29 % 12/24/18 06:18 Glucose 126 mg/dL (75-100) H 12/24/18 06:18 POC Glucose 106 (70-105) H 12/24/18 07:39 7.5 % (4-6) H 12/22/18 00:12 Calcium 8.3 mg/dL (8.4-10.2) L 12/24/18 06:18 1.40 mg/dL (0.1-1.2) H 12/21/18 21:53 AST 57 units/L (5-40) H 12/21/18 21:53 ALT 57 units/L (7-56) H 12/21/18 21:53 104 units/L (35-129) 12/21/18 21:53 0.324 ng/mL (0.00-0.029) H* 12/23/18 04:36 NT-Pro-B Natriuret Pep 2673 pg/mL (0-450) H 12/21/18 21:53 7.1 g/dL (6.3-8.2) 12/21/18 21:53 3.7 g/dL (3.9-5) L 12/21/18 21:53 1.1 % 12/21/18 21:53 Triglycerides 56 mg/dL (2-149) 12/21/18 21:53 Cholesterol 67 mg/dL (50-199) 12/21/18 21:53 29 mg/dL (50-130) L 12/21/18 21:53 32 mg/dL (40-59) L 12/21/18 21:53 2.09 % 12/21/18 21:53 Active Medications - Current Medications Current Medications: Generic Name Dose Route Start Last Admin Trade Name Freq PRN Reason Stop Dose Admin Acetaminophen 650 mg 12/21/18 23:50 Tylenol PO Q4H PRN Pain MILD(1-3)/Fever >100.5/ROBERSON Albuterol 2.5 mg 12/21/18 23:50 Proventil IH Q3HRT PRN Shortness Of Breath Aspirin 81 mg 12/22/18 10:00 12/23/18 10:01 Halfprin Ec PO 81 mg DAILY CODY Administration Atorvastatin Calcium 40 mg 12/22/18 22:00 12/23/18 22:29 Lipitor PO 40 mg QHS CODY Administration Bumetanide 1 mg 12/24/18 06:00 12/24/18 05:29 Bumex IV 1 mg BID@0600,1800 CODY Administration Carvedilol 25 mg 12/22/18 10:00 12/23/18 22:29 Coreg PO 25 mg BID CODY Administration Dextrose 50 ml 12/21/18 23:57 D50w (25gm) Syringe IV PRN PRN Hypoglycemia Dextrose 50 ml 12/24/18 08:02 D50w (25gm) Syringe IV 12/24/18 08:03 ONCE ONE Famotidine 20 mg 12/22/18 10:00 12/23/18 22:29 Pepcid PO 20 mg BID CODY Administration Hydromorphone HCl 0.5 mg 12/21/18 23:52 12/24/18 04:23 Dilaudid IV 0.5 mg Q3H PRN Administration Pain , Severe (7-10) Calcium Gluconate 2,000 mg/ 120 mls @ 660 mls/hr 12/24/18 08:02 Sodium Chloride IV 12/24/18 08:12 ONCE ONE Insulin Glargine 10 units 12/22/18 22:00 12/23/18 22:32 Lantus SUB-Q 10 units QHS CODY Administration Insulin Human Lispro 0 unit 12/22/18 07:30 12/23/18 22:31 Humalog SUB-Q Not Given ACHS [facility] Protocol Insulin Human Regular 3 units 12/22/18 07:30 12/23/18 18:47 Humulin R SUB-Q Not Given AC CODY Insulin Human Regular 10 units 12/24/18 08:05 Humulin R IV 12/24/18 08:06 ONCE ONE Nitroglycerin 0.4 mg 12/21/18 23:52 Nitrostat SL .Q5MIN PRN Chest Pain Ondansetron HCl 4 mg 12/21/18 23:50 Zofran IV Q8H PRN Nausea And Vomiting Oxycodone HCl 5 mg 12/23/18 02:15 12/23/18 19:06 Roxicodone PO 5 mg Q4H PRN Administration Pain, Moderate (4-6) Oxycodone/Acetaminophen 1 tab 12/23/18 02:14 12/24/18 03:04 Percocet 5/325 PO 1 tab Q4H PRN Administration Pain, Moderate (4-6) Sodium Chloride 10 ml 12/22/18 10:00 12/23/18 22:32 Sodium Chloride Flush Syringe 10 Ml IV 10 ml BID CODY Administration Sodium Chloride 10 ml 12/21/18 23:50 Sodium Chloride Flush Syringe 10 Ml IV PRN PRN LINE FLUSH Sodium Polystyrene Sulfonate 30 gm 12/24/18 09:00 Kionex PO 12/24/18 12:01 Q6HR CODY Warfarin Sodium 10 mg 12/23/18 17:00 12/23/18 18:43 Coumadin PO 10 mg DAILY CODY Administration Protocol Nutrition/Malnutrition Assess - Dietary Evaluation Nutrition/Malnutrition Findings: Nutrition Notes Start: 12/22/18 15:31 Freq: Status: Active Protocol: Document 12/22/18 15:31 BRANDEE (Rec: 12/22/18 15:42 BRANDEE [email or web address]) Nutrition Notes Need for Assessment generated from: MD Order,Education Initial or Follow up Brief Note Current Diagnosis Coronary Artery Disease, Diabetes,Hypertension,Heart Failure Other Pertinent Diagnosis Bilat LE edema, Chest pain Current Diet Cardiac/Consistent CHO Labs/Tests BNP 2673 Na 129 K 5.1 BUN 54 Cr 2 A1C 7.5 Height 6 ft 1 in Weight 234.507 kg [place] Body Weight (kg) 83.63 BMI 68.2 Weight Status Morbidly Obese Subjective/Other Information RD consulted for diet education. Pt very receptive to diet education; says he will start monitoring sodium intake more he has been in the past. He reports good appetite; wants more food at meal times. #1 Nutrition Diagnosis Altered nutrition-related laboratory values Etiology HF As Evidenced by Signs and Symptoms elevated BNP and hyponatremia Nutrition Intervention Change Diet Order: Double pro portions at meal times Teaching Recipient Patient Learning Readiness Good Teaching Methods Discussion,Handout Response to Teaching Verbalize understanding Education Handouts Provided Heart Failure Nutrition Therapy Barriers to Learning No Barriers RD phone number provided Yes Patient aware of follow up options Yes Goal #1 Limit Na intake to no more than 2300mg daily Goal #2 Improved fluid status Anticipated Discharge Needs: Low Na/CHO-controlled diet Revisit per MD consult or patient Sign Off request:
[2018-12-24] MEDS: HumaLOG SUB-Q SCH ×4 (08:20→21:55)
[2018-12-24] MEDS: HumuLIN R SUB-Q SCH (08:39)
[2018-12-24] MEDS ORDERED: D50W (25GM) Syringe IV ONE (09:00)
[2018-12-24] MEDS ORDERED: CALCIUM GLUCONATE 2,000 MG in NACL 0.9% 100 ML IV ONE (09:00)
[2018-12-24] MEDS: KIONEX PO SCH ×2 (09:13→19:26)
[2018-12-24] MEDS: COREG PO SCH ×2 (09:14→21:51)
[2018-12-24] MEDS: HALFPRIN EC PO SCH (09:14)
[2018-12-24] MEDS: PEPCID PO SCH ×2 (09:14→21:50)
[2018-12-24] MEDS: SODIUM CHLORIDE FLUSH SYRINGE 10 ML IV SCH ×2 (09:15→21:52)
[2018-12-24] MEDS: COUMADIN PO SCH (09:15)
--- NOTE | 2018-12-24 10:47 | Vascular Lab Report ---
PROCEDURE: VL VENOUS DUPLEX LE BILAT TECHNIQUE: Grayscale, color flow and spectral waveform images were obtained of bilateral lower extre mities. HISTORY: hx of dvt and lymphedema, worsening BLE edema COMPARISON: None FINDINGS: There is no deep venous thrombosis seen in the left or right lower extremity from common femoral vein s to popliteal veins. Flow is demonstrated by color flow and spectral waveform imaging. There is appropriate wall compression and augmentation. Calf veins are not visualized bilaterally. IMPRESSION: There is no evidence for DVT in either right or left lower extremity from common femoral veins to pop liteal veins. The calf veins are not visualized. DVT in either calf cannot be confirmed or excluded. This document is electronically signed by Socorro Mendoza MD., December 24 2018 10:45:55 AM ET
--- NOTE | 2018-12-24 11:30 | Progress Note ---
Assessment and Plan Assessment: Acute on chronic HFrEF Dilated NICMP - EF 10-15% AICD in situ Atypical chest pain - ECG with no acute ischemic changes; currently resolved NSTEMI type II - Nicol trending downwards REJI / hyperkalemia Hyponatremia RLE DVT / subtherapeutic INR Frequent PVCs and NSVT LBBB HTN DM Morbid obesity Lymphedema Anemia Plan: Cont present cardiac management. Pt noted to have worsening hyperkalemia this morning. Diuresis and electrolyte management per nephrology. The patient has been seen in conjunction with Dr. Bowling who agrees with the assessment and plan of care. Subjective Date of service: 12/24/18 Principal diagnosis: HF Interval history: pt resting in bed, states he is feeling a little better today. Objective Last Vital Signs Temp 98.2 F 12/24/18 08:18 Pulse 66 12/24/18 08:18 Resp 18 12/24/18 08:18 BP 142/82 12/24/18 08:18 Pulse Ox 100 12/24/18 08:18 - Physical Examination General: No Apparent Distress HEENT: Positive: PERRL, Normocephaly, Mucus Membranes Moist Neck: Positive: neck supple, trachea midline Cardiac: Positive: Reg Rate and Rhythm, S1/S2 Lungs: Positive: Decreased Breath Sounds Neuro: Positive: Grossly Intact Abdomen: Positive: Soft Skin: Negative: Rash, Wound Musculoskeletal: No Pain Extremities: Present: Other (lymphedema R>L) - Labs and Meds Coagulation 12/24/18 Range/Units 06:18 PT 23.0 H (12.2-14.9) Sec. INR 1.89 H (0.87-1.13) Comprehensive Metabolic Panel 12/23/18 12/24/18 12/24/18 Range/Units 17:56 06:18 09:07 Sodium 127 L (137-145) mmol/L Potassium 6.0 H 6.6 H* 5.6 H (3.6-5.0) mmol/L Chloride 92.3 L (98-107) mmol/L Carbon Dioxide 22 (22-30) mmol/L BUN 50 H (9-20) mg/dL Creatinine 1.7 H (0.8-1.5) mg/dL Glucose 126 H (75-100) mg/dL Calcium 8.3 L (8.4-10.2) mg/dL - Imaging and Cardiology EKG: report reviewed, image reviewed Echo: report reviewed (02/18/2018 at [place] showed EF 10-15%, LV severely dilated, LA severely dilated, mod TR, grade 2 diastolic dysfunction, mod MR, mod reduced RV systolic function, RVSP 25.2mmHg. ) Cardiac cath: report reviewed ([facility] and [facility] at [place] on 10/24/2017 which showed angiographically normal coronary arteries, normal right-sided filling pressures with a mean RA pressure of 5 mmHg, mildly elevated pulmonary artery pressures with a mean PA pressure of 27 mmHg and PA pressure was 38/16mmHG, mildly elevated left-sided filling pressures with a mean PCWP of 18 mmHg with a directly measured LVEDP of 20 mmHg, normal cardiac output with a CO of 5.74 L/min with a cardiac index of 1.82 L/min/m2 using a the Albaro equation.) - EKG Sinus rhythms and dysrhythmias: sinus rhythm
[2018-12-24 14:06] LABS: BUN/Creatinine Ratio 33; Blood Urea Nitrogen 49 mg/dL (9-20); Calcium 8.8 mg/dL (8.4-10.2); Hemolysis Index 89
--- NOTE | 2018-12-24 16:10 | Progress Note ---
Assessment and Plan - Patient Problems (1) Other acute kidney failure Current Visit: Yes Status: Acute Plan to address problem: Pre-renal azotemia secondary to acute cardiorenal syndrome superimposed on chronic kidney disease probably chronic cardiorenal syndrome versus diabetic nephropathy/hypertensive nephrosclerosis. Agree with holding metformin with the worsening kidney function. Kidney function is not significantly changed. Follow-up electrolytes and renal function (2) Hyperkalemia Current Visit: Yes Status: Acute Plan to address problem: Agree with holding angiotensin receptor nilson. Potassium high again today. Aggressive medical management of hyperkalemia and then follow potassium (3) Hyponatremia Current Visit: Yes Status: Acute Plan to address problem: Hypervolemic hyponatremia secondary to heart failure. Follow-up sodium this baljeet benny on loop diuretic. If still low, will give another dose of Toradol factor (4) Acute on chronic systolic (congestive) heart failure Current Visit: No Status: Acute Plan to address problem: Gentle diuresis with close monitoring of electrolytes and renal function (5) Bilateral lower extremity edema Current Visit: Yes Status: Acute Plan to address problem: Follow-up bilateral lower extremity duplex ultrasound to exclude deep vein thrombosis. (6) Type 2 diabetes mellitus with diabetic chronic kidney disease Current Visit: Yes Status: Acute Plan to address problem: Blood sugar management by primary attending (7) Hypertensive chronic kidney disease with stage 1 through stage 4 chronic kidney disease, or unspecified chronic kidney disease Current Visit: Yes Status: Acute Plan to address problem: Follow-up blood pressure on current medications. Subjective Date of service: 12/24/18 Principal diagnosis: HF Interval history: Patient seen lying in bed. Still complains of pain and swelling of his legs. No nausea or vomiting. No dizziness Objective - Exam Narrative Exam: Morbidly obese young -[place] Citizen male lying in bed in no acute distress HEENT: NCAT, pink oral mucous membrane Neck: Supple, no venous distention CVS: S1S2 RRR with no murmur, rub or gallop Chest: Clear to auscultation Abdomen:Obese, soft, nontender, no organomegaly, bowel sounds are present Extremities: 2 Plus pitting edema edema both legs and feet right more than left with tenderness Skin: Pigmentary changes both legs and feet. Genitourinary deferred Neuro: Awake, alert no focal deficits - Vital Signs Vital signs: Vital Signs - 12hr 12/24/18 12/24/18 12/24/18 05:03 05:07 08:18 Temperature 97.5 F L 98.2 F Pulse Rate 69 66 Respiratory 20 18 Rate Blood Pressure 110/75 142/82 O2 Sat by Pulse 99 100 Oximetry - Lab 12/23/18 04:36 12/24/18 13:28 Most recent lab results Calcium 8.8 mg/dL (8.4-10.2) 12/24/18 13:28 Medications & Allergies - Medications Allergies/Adverse Reactions: Allergies prochlorperazine [From Compazine] Allergy (Verified 04/14/18 12:13) Hives Home Medications: Home Medications Medication Instructions Recorded Confirmed Last Taken Type Metformin HCl 1,000 mg PO BID 10/18/17 12/22/18 11/04/18 History Aspirin EC 81 mg PO DAILY tablet 07/11/18 12/22/18 11/04/18 Rx AtorvaSTATin [Lipitor] 40 mg PO QHS tablet 07/11/18 12/22/18 11/03/18 Rx Losartan [Cozaar] 25 mg PO QDAY tablet 07/11/18 12/22/18 11/04/18 Rx oxyCODONE [roxiCODONE] 10 mg PO Q6H PRN tablet 07/11/18 12/22/18 11/04/18 Rx Warfarin [Coumadin] 20 mg PO DAILY 08/25/18 12/22/18 11/04/18 History Carvedilol [Coreg] 25 mg PO BID 11/05/18 12/22/18 11/04/18 History Famotidine [Pepcid] 20 mg PO BID #30 tablet 11/06/18 12/22/18 Unknown Rx Torsemide [Demadex] 60 mg PO BID 12/22/18 12/22/18 Unknown History Active Medications: Generic Name Dose Route Start Last Admin Trade Name Freq PRN Reason Stop Dose Admin Acetaminophen 650 mg 12/21/18 23:50 Tylenol PO Q4H PRN Pain MILD(1-3)/Fever >100.5/ROBERSON Albuterol 2.5 mg 12/21/18 23:50 Proventil IH Q3HRT PRN Shortness Of Breath Aspirin 81 mg 12/22/18 10:00 12/24/18 09:14 Halfprin Ec PO 81 mg DAILY CODY Administration Atorvastatin Calcium 40 mg 12/22/18 22:00 12/23/18 22:29 Lipitor PO 40 mg QHS CODY Administration Bumetanide 1 mg 12/24/18 06:00 12/24/18 05:29 Bumex IV 1 mg BID@0600,1800 CODY Administration Carvedilol 25 mg 12/22/18 10:00 12/24/18 09:14 Coreg PO 25 mg BID CODY Administration Dextrose 50 ml 12/21/18 23:57 D50w (25gm) Syringe IV PRN PRN Hypoglycemia Famotidine 20 mg 12/22/18 10:00 12/24/18 09:14 Pepcid PO 20 mg BID CODY Administration Hydromorphone HCl 0.5 mg 12/21/18 23:52 12/24/18 12:15 Dilaudid IV 0.5 mg Q3H PRN Administration Pain , Severe (7-10) Insulin Human Lispro 0 unit 12/22/18 07:30 12/24/18 13:34 Humalog SUB-Q Not Given ACHS [facility] Protocol Nitroglycerin 0.4 mg 12/21/18 23:52 Nitrostat SL .Q5MIN PRN Chest Pain Ondansetron HCl 4 mg 12/21/18 23:50 Zofran IV Q8H PRN Nausea And Vomiting Oxycodone/Acetaminophen 2 tab 12/24/18 11:44 12/24/18 13:34 Percocet 5/325 PO 2 tab Q4H PRN Administration Pain, Moderate (4-6) Sodium Chloride 10 ml 12/22/18 10:00 12/24/18 09:15 Sodium Chloride Flush Syringe 10 Ml IV 10 ml BID CODY Administration Sodium Chloride 10 ml 12/21/18 23:50 Sodium Chloride Flush Syringe 10 Ml IV PRN PRN LINE FLUSH Warfarin Sodium 10 mg 12/25/18 17:00 Coumadin PO DAILY@1700 [facility] Protocol
[2018-12-25] MEDS: DILAUDID IV PRN ×3 (01:23→11:19)
[2018-12-25] MEDS: PERCOCET 5/325 PO PRN ×3 (03:11→14:15)
[2018-12-25] MEDS: BUMEX IV SCH ×2 (05:40→17:06)
[2018-12-25 08:20] LABS: INR 2.39 (0.87-1.13)
[2018-12-25 08:23] LABS: Calcium 8.5 mg/dL (8.4-10.2)
--- NOTE | 2018-12-25 08:41 | Progress Note ---
Assessment and Plan - Patient Problems (1) Other acute kidney failure Status: Acute Plan to address problem: Pre-renal azotemia secondary to acute cardiorenal syndrome superimposed on chronic kidney disease probably chronic cardiorenal syndrome versus diabetic nephropathy/hypertensive nephrosclerosis. Agree with holding metformin with the worsening kidney function. Kidney function is improving. Okay to discharge from renal standpoint and follow-up in the office in one week (2) Hyperkalemia Status: Acute Plan to address problem: Agree with holding angiotensin receptor nilson. Potassium has improved back to normal. Aggressive medical management of hyperkalemia and then follow potassium (3) Hyponatremia Status: Acute Plan to address problem: Hypervolemic hyponatremia secondary to heart failure. Sodium has improved. (4) Acute on chronic systolic (congestive) heart failure Status: Acute Plan to address problem: Gentle diuresis with close monitoring of electrolytes and renal function (5) Bilateral lower extremity edema Status: Acute Plan to address problem: Improving. (6) Type 2 diabetes mellitus with diabetic chronic kidney disease Status: Acute Plan to address problem: Blood sugar management by primary attending (7) Hypertensive chronic kidney disease with stage 1 through stage 4 chronic kidney disease, or unspecified chronic kidney disease Status: Acute Plan to address problem: Follow-up blood pressure on current medications. Subjective Date of service: 12/25/18 Principal diagnosis: HF Interval history: Patient seen lying in bed. Still complains of pain and swelling of his legs but it is improving. He is making a lot of urine on current dose of diuretics.. No nausea or vomiting. No dizziness Objective - Exam Narrative Exam: Morbidly obese young -[place] male lying in bed in no acute distress HEENT: NCAT, pink oral mucous membrane Neck: Supple, no venous distention CVS: S1S2 RRR with no murmur, rub or gallop Chest: Clear to auscultation Abdomen:Obese, soft, nontender, no organomegaly, bowel sounds are present Extremities: 2 + pitting edema edema both legs and feet right more than left with tenderness Skin: Pigmentary changes both legs and feet. Genitourinary deferred Neuro: Awake, alert no focal deficits - Vital Signs Vital signs: Vital Signs - 12hr 12/24/18 12/24/18 12/25/18 21:51 23:22 04:00 Temperature 97.5 F L Pulse Rate 72 71 79 Respiratory 18 Rate Blood Pressure 137/83 141/87 O2 Sat by Pulse 98 Oximetry 12/25/18 12/25/18 04:30 07:58 Temperature 98.0 F 97.7 F Pulse Rate 42 L 58 L Respiratory 19 20 Rate Blood Pressure 122/68 130/83 O2 Sat by Pulse 94 97 Oximetry - Lab 12/23/18 04:36 12/25/18 07:22 Most recent lab results Calcium 8.5 mg/dL (8.4-10.2) 12/25/18 07:22 Magnesium 2.10 mg/dL (1.7-2.3) 12/25/18 07:22 Medications & Allergies - Medications Allergies/Adverse Reactions: Allergies prochlorperazine [From Compazine] Allergy (Verified 04/14/18 12:13) Hives Home Medications: Home Medications Medication Instructions Recorded Confirmed Last Taken Type oxyCODONE [roxiCODONE] 10 mg PO Q6H PRN tablet 07/11/18 12/22/18 11/04/18 Rx Famotidine [Pepcid] 20 mg PO BID #30 tablet 11/06/18 12/22/18 Unknown Rx Aspirin EC 81 mg PO DAILY #30 tablet 12/25/18 Unknown Rx AtorvaSTATin [Lipitor] 40 mg PO QHS #60 tablet 12/25/18 Unknown Rx Carvedilol [Coreg] 25 mg PO BID #60 tablet 12/25/18 Unknown Rx Insulin Regular, Human [HumuLIN R] 0 unit SQ AC #1 vial 12/25/18 Unknown Rx Torsemide [Demadex] 60 mg PO BID #120 tablet 12/25/18 Unknown Rx Warfarin [Coumadin] 10 mg PO DAILY@1700 #30 tablet 12/25/18 Unknown Rx Active Medications: Generic Name Dose Route Start Last Admin Trade Name Freq PRN Reason Stop Dose Admin Acetaminophen 650 mg 12/21/18 23:50 Tylenol PO Q4H PRN Pain MILD(1-3)/Fever >100.5/ROBERSON Albuterol 2.5 mg 12/21/18 23:50 Proventil IH Q3HRT PRN Shortness Of Breath Aspirin 81 mg 12/22/18 10:00 12/24/18 09:14 Halfprin Ec PO 81 mg DAILY CODY Administration Atorvastatin Calcium 40 mg 12/22/18 22:00 12/24/18 21:51 Lipitor PO 40 mg QHS CODY Administration Bumetanide 1 mg 12/24/18 06:00 12/25/18 05:40 Bumex IV 1 mg BID@0600,1800 [facility] Administration Carvedilol 25 mg 12/22/18 10:00 12/24/18 21:51 Coreg PO 25 mg BID CODY Administration Dextrose 50 ml 12/21/18 23:57 D50w (25gm) Syringe IV PRN PRN Hypoglycemia Famotidine 20 mg 12/22/18 10:00 12/24/18 21:50 Pepcid PO 20 mg BID CODY Administration Hydromorphone HCl 0.5 mg 12/21/18 23:52 12/25/18 05:39 Dilaudid IV 0.5 mg Q3H PRN Administration Pain , Severe (7-10) Insulin Human Lispro 0 unit 12/22/18 07:30 12/24/18 21:55 Humalog SUB-Q 2 unit ACHS [facility] Administration Protocol Nitroglycerin 0.4 mg 12/21/18 23:52 Nitrostat SL .Q5MIN PRN Chest Pain Ondansetron HCl 4 mg 12/21/18 23:50 Zofran IV Q8H PRN Nausea And Vomiting Oxycodone/Acetaminophen 2 tab 12/24/18 11:44 12/25/18 03:11 Percocet 5/325 PO 2 tab Q4H PRN Administration Pain, Moderate (4-6) Sodium Chloride 10 ml 12/22/18 10:00 12/24/18 21:52 Sodium Chloride Flush Syringe 10 Ml IV 10 ml BID CODY Administration Sodium Chloride 10 ml 12/21/18 23:50 Sodium Chloride Flush Syringe 10 Ml IV PRN PRN LINE FLUSH Warfarin Sodium 10 mg 12/25/18 17:00 Coumadin PO DAILY@1700 [facility] Protocol
[2018-12-25] MEDS: HumaLOG SUB-Q SCH ×3 (08:42→17:04)
[2018-12-25] MEDS: COREG PO SCH (09:08)
[2018-12-25] MEDS: PEPCID PO SCH (09:09)
[2018-12-25] MEDS: SODIUM CHLORIDE FLUSH SYRINGE 10 ML IV SCH (09:09)
[2018-12-25] MEDS: HALFPRIN EC PO SCH (09:09)
--- NOTE | 2018-12-25 10:33 | Progress Note ---
Assessment and Plan Assessment: Acute on chronic HFrEF Dilated NICMP - EF 10-15% AICD in situ Atypical chest pain - ECG with no acute ischemic changes; currently resolved NSTEMI type II - Nicol trending downwards REJI / hyperkalemia Hyponatremia RLE DVT / subtherapeutic INR Frequent PVCs and NSVT LBBB HTN DM Morbid obesity Lymphedema Anemia Plan: Cont present cardiac management. Await nephrology recs, pt would benefit from additional diuresis if ok per nephrology. The patient has been seen in conjunction with Dr. Bowling who agrees with the assessment and plan of care. Subjective Date of service: 12/25/18 Principal diagnosis: HF Interval history: pt resting in bed, states he is feeling about the same as yesterday. Objective Last Vital Signs Temp 97.7 F 12/25/18 07:58 Pulse 58 L 12/25/18 07:58 Resp 20 12/25/18 07:58 BP 130/83 12/25/18 07:58 Pulse Ox 97 12/25/18 07:58 - Physical Examination General: No Apparent Distress HEENT: Positive: PERRL, Normocephaly, Mucus Membranes Moist Neck: Positive: neck supple, trachea midline Cardiac: Positive: Reg Rate and Rhythm, S1/S2 Lungs: Positive: Decreased Breath Sounds Neuro: Positive: Grossly Intact Abdomen: Positive: Soft Skin: Negative: Rash, Wound Musculoskeletal: No Pain Extremities: Present: Other (lymphedema R>L) - Labs and Meds Coagulation 12/25/18 Range/Units 07:22 PT 27.7 H (12.2-14.9) Sec. INR 2.39 H (0.87-1.13) Comprehensive Metabolic Panel 12/24/18 12/25/18 Range/Units 13:28 07:22 Sodium 128 L 132 L (137-145) mmol/L Potassium 5.4 H 5.1 H (3.6-5.0) mmol/L Chloride 93.2 L 93.9 L (98-107) mmol/L Carbon Dioxide 21 L 26 (22-30) mmol/L BUN 49 H 48 H (9-20) mg/dL Creatinine 1.5 1.7 H (0.8-1.5) mg/dL Glucose 97 140 H (75-100) mg/dL Calcium 8.8 8.5 (8.4-10.2) mg/dL - Imaging and Cardiology EKG: report reviewed, image reviewed Echo: report reviewed (02/18/2018 at [facility] showed EF 10-15%, LV severely dilated, LA severely dilated, mod TR, grade 2 diastolic dysfunction, mod MR, mod reduced RV systolic function, RVSP 25.2mmHg. ) Cardiac cath: report reviewed (C and [facility] at [place] on 10/24/2017 which showed angiographically normal coronary arteries, normal right-sided filling pressures with a mean RA pressure of 5 mmHg, mildly elevated pulmonary artery pressures with a mean PA pressure of 27 mmHg and PA pressure was 38/16mmHG, mildly elevated left-sided filling pressures with a mean PCWP of 18 mmHg with a directly measured LVEDP of 20 mmHg, normal cardiac output with a CO of 5.74 L/min with a cardiac index of 1.82 L/min/m2 using a the Albaro equation.) - EKG Sinus rhythms and dysrhythmias: sinus rhythm
--- NOTE | 2018-12-25 11:22 | Discharge Summary ---
Providers - Providers Date of Admission: 12/21/18 23:50 Attending physician: KYM CHARLES MD 12/21/18 23:52 Consult to Physician [CONS] Routine Comment: Consulting Provider: CLARISSE PARNELL Physician Instructions: Reason For Exam: est pt, AE CHF 12/21/18 23:57 Consult to Dietitian/Nutrition [CONS] Routine Physician Instructions: Reason For Exam: Reason for Consult: Diet education 12/22/18 00:40 Consult to Physician [CONS] Routine Comment: Consulting Provider: NISREEN COLLADO Physician Instructions: Reason For Exam: REJI on CDK Primary care physician: HELENE BAIRES Hospitalization Reason for admission: CHF Condition: Stable Hospital course: 33-year-old morbidly obese -[place]ian male with history of systolic heart failure, CAD, dilated nonischemic cardiomyopathy with ejection fraction 10- 15%(Echo 02/28), status post AICD, right lower extremity DVT PE, lymph edema R>L, hypertension, diabetes, and chronic renal failure who presents to [facility] with complaints of worsening bilateral lower extremity edema, bilateral lower extremity pain and chest pain. He is an established patient of at [facility] and is followed by [facility] during [facility] admissions. CXR showed small right pleural effusion. Troponin elevated at 0.446, BNP elevated at 2673. EKG revealed acute ischemic abnormalities. Will admit to telemetry for further evaluation. Patient was seen by Cardiology and Nephrology and was diuresed. He continued to request round the clock Pain medication with Dialudid and Precocet. We spoke a lot about complaint with medication, fluid restriction, daily weight. He verbalized understand and will follow with the Nephrology, Cardiology and his primary care doctor outpatient He recieved tolvaptan a few times in house for better control of Sodium level Acute ON chronic HFrEF Lower ext Edema secondary to medical non compliance in the setting of cardiomyopathy Dilated nonischemic cardiomyopathy with EF 10-15% Hyperkalemia-worsening Hyponatremia-persistent REJI on chronic renal failure SECONDARY TO VASOMOTOR NEPHROPATHY Anemia DM 2 with hyperglycemia Right lower extremity DVT on Coumadin S/P AICD Type 2 NSTEMI Lymphedema R>L Morbid obesity LBBB Disposition: - TO HOME OR SELFCARE Time spent for discharge: 35 MINS Core Measure Documentation - Palliative Care Palliative Care/ Comfort Measures: Not Applicable - Core Measures Any of the following diagnoses?: heart failure - Heart Failure Discharge Requirements JOSH/ARB for LVSD if EF <40%: No Reason for no JOSH/ARB: Renal impairment Beta nilson at discharge: Yes Exam - Physical Exam Narrative exam: VITAL SIGNS: Reviewed. GENERAL: The patient appeared well nourished and normally developed, Vital signs as documented. HEAD: No signs of head trauma. EYES: Pupils are equal. Extraocular motions intact. EARS: Hearing grossly intact. MOUTH: Oropharynx is normal. NECK: No adenopathy, no JVD. CHEST: Chest with Diminished breath sounds bilaterally. No wheezes, rales, or rhonchi. CARDIAC: Regular rate and rhythm. S1 and S2, without murmurs, gallops, or rubs. VASCULAR: Lymphedema . Peripheral pulses normal and equal in all extremities. ABDOMEN: Soft, non tender and non distended. No rebound or guarding, and no masses palpated. Bowel Sounds normal. MUSCULOSKELETAL: Good range of motion of all major joints. Extremities without clubbing, cyanosis. lymphedema R>L, worsening BLE edema R>L. NEUROLOGIC EXAM: Alert and oriented x 3 No focal sensory or strength deficits. Speech normal. Follows commands. PSYCHIATRIC: Mood normal. SKIN: Tattoes. - Constitutional Vitals: Temp Pulse Resp BP Pulse Ox 97.7 F 58 L 20 130/83 97 12/25/18 07:58 12/25/18 07:58 12/25/18 07:58 12/25/18 07:58 12/25/18 07:58 Plan Activity: advance as tolerated, fall precautions Diet: low salt Special Instructions: restrict fluid intake to (1200CC/DAY), record daily weights, record daily BP diary Follow up with: HELENE BAIRES MD [Primary Care Provider] - 3-5 Days LYN PEREZ MD [Staff Physician] - 7 Days MARY CARMEN LIMON MD [Staff Physician] - 7 Days Forms: Warfarin Discharge Instruction Prescriptions: AtorvaSTATin [Lipitor] 40 mg PO QHS #60 tablet Aspirin EC 81 mg PO DAILY #30 tablet Carvedilol [Coreg] 25 mg PO BID #60 tablet Warfarin [Coumadin] 10 mg PO DAILY@1700 #30 tablet Torsemide [Demadex] 60 mg PO BID #120 tablet Other Discharge Orders: Glucometer (Amb) Location: None Selected Glucometer supplies[Amb] Location: None Selected
[2018-12-25 16:47] VITALS: BP 113/86
[2018-12-25] MEDS ORDERED: COUMADIN PO SCH (17:00)
== END 2018-12-25 17:30 | disposition home or self-care (01) | DRG 280 ==
LOC: ED 21:41 → 4A 23:50
PROVIDERS: ADMIT Internal Medicine; ATTEND Internal Medicine
DX: I21.A1 Myocardial infarction type 2 (principal); I50.23 Acute on chronic systolic (congestive) heart failure; N17.0 Acute kidney failure with tubular necrosis; E87.1 Hypo-osmolality and hyponatremia; I42.0 Dilated cardiomyopathy; I13.0 Hypertensive heart and chronic kidney disease with heart failure and stage 1 through stage 4 chronic kidney disease, or unspecified chronic kidney disease; Z68.44 Body mass index [BMI] 60.0-69.9, adult; I47.2 Ventricular tachycardia; I25.110 Atherosclerotic heart disease of native coronary artery with unstable angina pectoris; E66.01 Morbid (severe) obesity due to excess calories; I44.7 Left bundle-branch block, unspecified; I89.0 Lymphedema, not elsewhere classified; E11.22 Type 2 diabetes mellitus with diabetic chronic kidney disease; E11.65 Type 2 diabetes mellitus with hyperglycemia; R74.8 Abnormal levels of other serum enzymes; E87.5 Hyperkalemia; Z95.810 Presence of automatic (implantable) cardiac defibrillator; Z86.718 Personal history of other venous thrombosis and embolism; Z79.01 Long term (current) use of anticoagulants; Z86.711 Personal history of pulmonary embolism; Z88.8 Allergy status to other drugs, medicaments and biological substances; Z79.84 Long term (current) use of oral hypoglycemic drugs
CPT/HCPCS: 36415; 71046; 80048; 80053; 80061; 82962; 83036; 83735; 83880; 84132; 84484; 85007; 85025; 85027; 85520; 85610; 85730; 93005; 93010; 93970; 96365; 96375; G0378; A9270-GY; J0610; J1170; J1644; J1815; J2270

== ENCOUNTER 2018-12-29 17:38 | Inpatient (IN) | payer OTHER ==
[2018-12-29] MEDS ORDERED: MORPHINE IV ONE (18:02)
--- NOTE | 2018-12-29 18:09 | Emergency Department Report ---
HPI - General Chief Complaint: Chest Pain Time Seen by Provider: 12/29/18 17:45 - HPI HPI: 33-year-old -Swedish male presents to the emergency department by EMS from home with a complaint of pain and swelling in the bilateral lower extremities, shortness of breath and some chest discomfort. He has a past medical history of chronic systolic congestive heart failure, dilated nonischemic cardiomyopathy, AICD in situ, hypertension, diabetes, chronic right lower extremity DVT, lymphedema and morbid obesity. Patient follows with a director strategy at [place], . The patient was just here on 12/22/18 for similar symptoms and was found at that time to have some acute renal insufficiency, elevated troponins. Patient says that after being discharged he went to visit a friend in [place] and says that he was fed a meal that was high in salt, which he says he did not know about. He also says that he did not taken off of his Coumadin up there. The patient returned home yesterday and woke up this morning with increased pain and swelling in the legs and these other symptoms. He usually is able to ambulate but is unable to do so right now secondary to the swelling. ED Past Medical Hx - Past Medical History Previous Medical History?: Yes Hx Hypertension: Yes Hx Heart Attack/AMI: Yes Hx Congestive Heart Failure: Yes Hx Diabetes: Yes Hx Deep Vein Thrombosis: Yes Hx Asthma: No Hx COPD: No Additional medical history: R sided chest tube, -infection in lung. defibrillator 10/2017. EJ 15%. 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 Rubber Washer ) Additional Surgical History: lymphedema - Social History Smoking Status: Never Smoker Substance Use Type: None - Medications Home Medications: Home Medications Medication Instructions Recorded Confirmed Last Taken Type oxyCODONE [roxiCODONE] 10 mg PO Q6H PRN tablet 07/11/18 12/22/18 11/04/18 Rx Famotidine [Pepcid] 20 mg PO BID #30 tablet 11/06/18 12/22/18 Unknown Rx Aspirin EC 81 mg PO DAILY #30 tablet 12/25/18 Unknown Rx AtorvaSTATin [Lipitor] 40 mg PO QHS #60 tablet 12/25/18 Unknown Rx Carvedilol [Coreg] 25 mg PO BID #60 tablet 12/25/18 Unknown Rx Insulin Regular, Human [HumuLIN R] 0 unit SQ AC #1 vial 12/25/18 Unknown Rx Torsemide [Demadex] 60 mg PO BID #120 tablet 12/25/18 Unknown Rx Warfarin [Coumadin] 10 mg PO DAILY@1700 #30 tablet 12/25/18 Unknown Rx ED Review of Systems ROS: Stated complaint: PAIN IN LOWER LEGS Other details as noted in HPI Comment: All other systems reviewed and negative Constitutional: denies: chills, fever Eyes: denies: eye pain, vision change ENT: denies: ear pain, throat pain Respiratory: orthopnea, shortness of breath, SOB with exertion. denies: cough Cardiovascular: chest pain, edema Gastrointestinal: denies: abdominal pain, vomiting Genitourinary: denies: dysuria, discharge Musculoskeletal: denies: back pain, arthralgia Skin: denies: rash, lesions Neurological: denies: headache, weakness Physical Exam - Physical Exam Physical Exam: GENERAL: The patient is well-developed well-nourished. HENT: Normocephalic. Atraumatic. Patient has moist mucous membranes. EYES: Extraocular motions are intact. Pupils equal reactive to light bilaterally. NECK: Supple. Trachea is midline. CHEST/LUNGS: Coarse breath sounds at the chest. No tachypnea or accessory muscle use. There is no respiratory distress noted. HEART/CARDIOVASCULAR: Regular. There is no tachycardia. There is no murmur. ABDOMEN: Abdomen is soft, nontender. Patient has normal bowel sounds. Morbidly obese habitus. SKIN: Severe bilateral lower extremity nonpitting swelling with right greater than left. NEURO: The patient is awake, alert, and oriented. The patient is cooperative. The patient has no focal neurologic deficits. The patient has normal speech. MUSCULOSKELETAL: There is no tenderness or deformity. There is no evidence of acute injury. ED Medical Decision Making - Lab Data Result diagrams: 12/29/18 18:11 12/29/18 21:17 - EKG Data -: EKG Interpreted by Me EKG shows normal: sinus rhythm (with PVCs), axis, intervals (prolonged DE interval), QRS complexes (left bundle branch block), ST-T waves Rate: normal - EKG Data When compared to previous EKG there are: no significant change Interpretation: unchanged when compared t (12/22/18) - Radiology Data Radiology results: image reviewed interpreted by me: Chest x-ray shows some cardiomegaly and pulmonary vascular congestion with some mild basilar pleural effusions. - Medical Decision Making Patient presents to the emergency department with a return of shortness of breath, chest discomfort, and severe lower extremity swelling. The patient does have significant swelling, beyond his normal lymphedema. There is some coarse breath sounds but otherwise he does not appear in any respiratory distress. EKG does not show any signs of ST elevation [place]. Chest x-ray shows some pulmonary vascular congestion and some mild basilar pleural effusions. He has a BNP greater than 2000. He was given some Lasix to start diuresis. He has elevated troponin but it is decreased from his previous visit. The patient will be admitted to the hospital for further evaluation and treatment and was accepted for admission by the hospitalist service. - Differential Diagnosis CHF, TX, PE, pneumonia Critical Care Time: No Critical care attestation.: If time is entered above; I have spent that time in minutes in the direct care of this critically ill patient, excluding procedure time. ED Disposition Clinical Impression: Acute chest pain, Elevated troponin, Leg edema CHF exacerbation Qualifiers: Heart failure type: combined systolic and diastolic Qualified Code(s): I50.43 - Acute on chronic combined systolic (congestive) and diastolic (congestive) heart failure Disposition: OP ADMIT IP TO THIS HOSP Is pt being admited?: Yes Condition: Fair Time of Disposition: 01:15
[2018-12-29] MEDS ORDERED: DILAUDID IV ONE ×2 (18:54→21:14)
[2018-12-29 18:59] LABS: Basophils # (Auto) 0.1 K/mm3 (0.0-0.1); Basophils % (Auto) 1.1 % (0.0-1.8); Eosinophils % (Auto) 0.5 % (0.0-4.3); Lymphocytes % (Auto) 20.3 % (13.4-35.0); Mean Corpuscular HGB Conc 30 % (32-34); Mean Corpuscular Volume 71 fl (84-94); Monocytes # (Auto) 0.6 K/mm3 (0.0-0.8); Monocytes % (Auto) 11.5 % (0.0-7.3); Platelet Count 213 K/mm3 (140-440); Red Blood Count 4.79 M/mm3 (3.65-5.03)
[2018-12-29 19:00] LABS: Hematocrit 33.8 % (35.5-45.6); Hemoglobin 10.1 gm/dl (11.8-15.2); Red Cell Distribution Width 23.5 % (13.2-15.2)
[2018-12-29 19:05] LABS: INR 2.55 (0.87-1.13)
[2018-12-29 19:06] LABS: Partial Thromboplastin Time 37.3 Sec. (24.2-36.6)
[2018-12-29 19:29] LABS: BUN/Creatinine Ratio 26; Blood Urea Nitrogen 37 mg/dL (9-20); Calcium 9.3 mg/dL (8.4-10.2); Hemolysis Index 229
[2018-12-29] MEDS ORDERED: LASIX IV ONE (19:38)
--- NOTE | 2018-12-29 19:50 | XRay Report ---
PROCEDURE: XR CHEST 1V AP TECHNIQUE: Chest radiograph single view. HISTORY: Chest Pain COMPARISONS: Chest x-ray dated December 21, 2018 . FINDINGS: Visualization of detail is somewhat limited by artifact created by large body habitus. Again noted is the marked enlargement of the cardiac silhouette with AICD. There is prominence of the pulmonary venous vasculature consistent with pulmonary venous congestion. There are possible areas of pulmonary consolidation in both lung bases. There is no definite evidence of pleural effusion. However, a small right pleural effusion could be m issed. IMPRESSION: 1. Study degraded by artifact. 2. Marked enlargement of the cardiac silhouette with AICD not significantly changed. 3. Evidence of pulmonary venous congestion. 4. Possible areas of pulmonary consolidation in both lung bases. Differential diagnosis includes deanne fact. If further imaging is required, CT chest may be helpful. This document is electronically signed by Teresa Boyle MD., December 29 2018 07:48:20 PM ET
[2018-12-29 20:27] LABS: Chol/HDL Ratio TNR %; HDL Cholesterol TNR mg/dL (40-59); LDL Cholesterol,Direct TNR mg/dL (50-130)
[2018-12-29] MEDS ORDERED: DILAUDID ONE (21:17)
[2018-12-29 22:03] LABS: BUN/Creatinine Ratio 25; Blood Urea Nitrogen 35 mg/dL (9-20); Calcium 9.1 mg/dL (8.4-10.2); Hemolysis Index 111
[2018-12-29 22:39] LABS: Alanine Aminotransferase 64 units/L (7-56)
--- NOTE | 2018-12-29 22:53 | History and Physical Report ---
History of Present Illness Chief complaint: chest pain History of present illness: 33-year-old -[place] male presents to the emergency department by EMS c/o sob, bl le edema and discomfort, CP. States that he was fed a meal with salty food, he has poor hx of compliance with diet and medication . The patient was just here on 12/22/18 for similar symptoms and was found at that time to have some acute renal insufficiency, elevated troponins. Patient says that after being discharged he went to visit a friend in [place] and says that he was fed a meal that was high in salt, which he says he did not know about. Apparently he had hit him food that was prepared by [employer] and was very high in salt. He returned to [place] and woke up the next day with increased swelling in his extremities. -His legs were so swollen that he couldn't walk. The patient also reported some shortness of breath and chest pain. He reported mostly orthopnea and some dyspnea on exertion Past Medical History: CAD, diabetes, DVT (on Coumadin admits to missing one week but for the most part compliant), heart failure, hypertension, other (dilated nonischemic cardiomyopathy myopathy with EF 10-15% , lymphedema R>L) -chronic systolic congestive heart failure, dilated nonischemic cardiomyopathy, AICD in situ, hypertension, diabetes, chronic right lower extremity DVT, lymphedema and morbid obesity. Patient follows with a uc architect at [place], Past Surgical History: Other (AICD in situ) Social history: lives with family Family history: no significant family history Medications and Allergies Allergies Allergy/AdvReac Type Severity Reaction Status Date / Time prochlorperazine Allergy Hives Verified 04/14/18 12:13 [From Compazine] Home Medications Medication Instructions Recorded Confirmed Last Taken Type oxyCODONE [roxiCODONE] 10 mg PO Q6H PRN tablet 07/11/18 12/22/18 11/04/18 Rx Famotidine [Pepcid] 20 mg PO BID #30 tablet 11/06/18 12/22/18 Unknown Rx Aspirin EC 81 mg PO DAILY #30 tablet 12/25/18 Unknown Rx AtorvaSTATin [Lipitor] 40 mg PO QHS #60 tablet 12/25/18 Unknown Rx Carvedilol [Coreg] 25 mg PO BID #60 tablet 12/25/18 Unknown Rx Insulin Regular, Human [HumuLIN R] 0 unit SQ AC #1 vial 12/25/18 Unknown Rx Torsemide [Demadex] 60 mg PO BID #120 tablet 12/25/18 Unknown Rx Warfarin [Coumadin] 10 mg PO DAILY@1700 #30 tablet 12/25/18 Unknown Rx Review of Systems All systems: negative Constitutional: fatigue, weakness Ears, nose, mouth and throat: no ear pain Cardiovascular: chest pain, orthopnea, edema Respiratory: no cough Gastrointestinal: no abdominal pain Genitourinary Male: no dysuria Rectal: no pain Musculoskeletal: no neck stiffness Integumentary: no rash Neurological: no head injury Psychiatric: no anxiety Endocrine: no cold intolerance Hematologic/Lymphatic: no easy bruising Allergic/Immunologic: no urticaria Exam - Constitutional Vitals: Temp Pulse Resp BP Pulse Ox 98.4 F 82 16 118/78 96 12/29/18 19:30 12/29/18 19:30 12/29/18 21:15 12/29/18 19:30 12/29/18 19:30 General appearance: Present: mild distress, well-nourished, obese - EENT Eyes: Present: PERRL ENT: hearing intact, clear oral mucosa - Neck Neck: Present: supple, normal ROM - Respiratory Respiratory effort: normal Respiratory: bilateral: CTA - Cardiovascular Heart Sounds: Present: S1 & S2. Absent: rub, click - Extremities Extremity abnormal: edema (right-sided severe lymphedema, left lower extremity edema) Peripheral Pulses: within normal limits - Abdominal General gastrointestinal: Present: soft, non-tender, non-distended, normal bowel sounds Male genitourinary: Present: normal - Integumentary Integumentary: Present: clear, warm, dry - Musculoskeletal Musculoskeletal: gait normal, strength equal bilaterally - Psychiatric Psychiatric: appropriate mood/affect, intact judgment & insight - Neurologic Neurologic: CNII-XII intact, moves all extremities Results - Labs CBC & Chem 7: 12/29/18 18:11 12/29/18 21:17 Labs: Laboratory Last Values WBC 5.0 K/mm3 (4.5-11.0) 12/29/18 18:11 RBC 4.79 M/mm3 (3.65-5.03) 12/29/18 18:11 Hgb 10.1 gm/dl (11.8-15.2) L 12/29/18 18:11 Hct 33.8 % (35.5-45.6) L 12/29/18 18:11 MCV 71 fl (84-94) L 12/29/18 18:11 MCH 21 pg (28-32) L 12/29/18 18:11 MCHC 30 % (32-34) L 12/29/18 18:11 RDW 23.5 % (13.2-15.2) H 12/29/18 18:11 Plt Count 213 K/mm3 (140-440) 12/29/18 18:11 Lymph % (Auto) 20.3 % (13.4-35.0) 12/29/18 18:11 [place] % (Auto) 11.5 % (0.0-7.3) H 12/29/18 18:11 Eos % (Auto) 0.5 % (0.0-4.3) 12/29/18 18:11 Baso % (Auto) 1.1 % (0.0-1.8) 12/29/18 18:11 Lymph # 1.0 K/mm3 (1.2-5.4) L 12/29/18 18:11 [place] # 0.6 K/mm3 (0.0-0.8) 12/29/18 18:11 Eos # 0.0 K/mm3 (0.0-0.4) 12/29/18 18:11 Baso # 0.1 K/mm3 (0.0-0.1) 12/29/18 18:11 Seg Neutrophils % 66.6 % (40.0-70.0) 12/29/18 18:11 Seg Neutrophils # 3.3 K/mm3 (1.8-7.7) 12/29/18 18:11 PT 27.0 Sec. (12.2-14.9) H 12/29/18 18:11 INR 2.55 (0.87-1.13) H 12/29/18 18:11 APTT 37.3 Sec. (24.2-36.6) H 12/29/18 18:11 Sodium 130 mmol/L (137-145) L 12/29/18 21:17 Potassium 5.3 mmol/L (3.6-5.0) H 12/29/18 21:17 Chloride 97.8 mmol/L (98-107) L 12/29/18 21:17 Carbon Dioxide 18 mmol/L (22-30) L D 12/29/18 21:17 20 mmol/L 12/29/18 21:17 BUN 35 mg/dL (9-20) H 12/29/18 21:17 1.4 mg/dL (0.8-1.5) 12/29/18 21:17 Estimated GFR > 60 ml/min 12/29/18 21:17 25 % 12/29/18 21:17 Glucose 100 mg/dL (75-100) 12/29/18 21:17 Calcium 9.1 mg/dL (8.4-10.2) 12/29/18 21:17 1.70 mg/dL (0.1-1.2) H 12/29/18 21:17 AST 62 units/L (5-40) H 12/29/18 21:17 ALT 64 units/L (7-56) H 12/29/18 21:17 124 units/L (35-129) 12/29/18 21:17 0.014 ng/mL (0.00-0.029) 12/29/18 21:17 NT-Pro-B Natriuret Pep 2123 pg/mL (0-450) H 12/29/18 18:11 7.4 g/dL (6.3-8.2) 12/29/18 21:17 2.0 g/dL (3.9-5) L 12/29/18 21:17 0.4 % 12/29/18 21:17 Triglycerides TNR 12/29/18 18:11 Cholesterol TNR 12/29/18 18:11 TNR 12/29/18 18:11 TNR 12/29/18 18:11 TNR 12/29/18 18:11 - Imaging and Cardiology Chest x-ray: image reviewed (no acute findings) Assessment and Plan Assessment and plan: 33-year-old morbidly obese -[place] male with history of systolic heart failure, CAD, dilated nonischemic cardiomyopathy with ejection fraction 10- 15%(Echo 02/28), status post AICD, right lower extremity DVT PE, lymph edema R>L, hypertension, diabetes, and chronic renal failure who presents to [facility] ED with complaints of worsening bilateral lower extremity edema, chest pain and sob. He is an established patient of at [facility] and is followed by [facility] during [facility] admissions. Diagnosis/Plan Acute ON chronic HFrEF Dilated nonischemic cardiomyopathy with EF 10-15%, S/P AICD type 2 NE- chronically elevated trop due to CHF * lasix, cont cardiac meds, cardiology consult Right lower extremity lymphedema * wound consult, needs compression Hyperkalemia- mild * should improve with lasix Hyponatremia-persistent, stable Anemia OCD- stable DM 2 with hyperglycemia * ssi * recent a1c 7.5 chronic Right lower extremity DVT on Coumadin * INR is therapeutic Morbid obesity outpatient referral to weight loss program dvt ppx- fully anticoagulated
[2018-12-29] MEDS ORDERED: D50W (25GM) Syringe IV PRN (23:11)
[2018-12-29] MEDS ORDERED: APRESOLINE IV PRN (23:12)
[2018-12-29] MEDS ORDERED: SODIUM CHLORIDE FLUSH SYRINGE 10 ML IV PRN (23:13)
[2018-12-29] MEDS ORDERED: TYLENOL PO PRN (23:13)
[2018-12-29] MEDS ORDERED: ZOFRAN IV PRN (23:13)
[2018-12-29] MEDS: ROXICODONE PO PRN (23:40)
[2018-12-29] MEDS: LASIX IV SCH (23:50)
[2018-12-29] MEDS ORDERED: LASIX ONE (23:57)
[2018-12-30 00:01] LABS: Bilirubin,Direct 0.5 mg/dL (0-0.2)
[2018-12-30] MEDS: PERCOCET 5/325 PO PRN (03:37)
[2018-12-30] MEDS: HumaLOG SUB-Q SCH ×4 (07:30→21:19)
[2018-12-30 08:31] LABS: Alanine Aminotransferase 59 units/L (7-56); Albumin 3.1 g/dL (3.9-5); BUN/Creatinine Ratio 21; Blood Urea Nitrogen 34 mg/dL (9-20); Calcium 8.5 mg/dL (8.4-10.2); Hemolysis Index 17
[2018-12-30] MEDS: HALFPRIN EC PO SCH (09:48)
[2018-12-30] MEDS: PEPCID PO SCH (09:48)
[2018-12-30] MEDS: LASIX IV SCH ×2 (09:48→21:18)
[2018-12-30] MEDS: COREG PO SCH ×2 (09:48→21:18)
[2018-12-30] MEDS: DILAUDID IV PRN ×2 (10:06→18:16)
[2018-12-30] MEDS: SODIUM CHLORIDE FLUSH SYRINGE 10 ML IV SCH ×2 (10:10→21:19)
--- NOTE | 2018-12-30 10:56 | Consultation ---
History of Present Illness Consult date: 12/30/18 Requesting physician: ASMREEN AARON Consult reason: congestive heart failure History of present illness: The pt is a 33 YO male with a past medical history significant for chronic systolic heart failure, dilated NICMP, AICD in situ, frequent PVCs and NSVT, HTN, DM, RLE DVT, anticoagulated with coumadin, morbid obesity, lymphedema. He has been seen by our practice on prior hospitalizations and follows at [facility]. He presented with c/o progressively worsening SOB, RAE, BLE edema and orthopnea for the past several days. He states that he went out of town to visit a friend and ate some meatloaf from [employer] which he believes was high in salt. A few days after that meal, his symptoms developed. He tried to take extra doses of torsemide but his symptoms did not improve. He denies any chest pain, palpitations, n/v, diaphoresis, dizziness or syncope. Pt underwent LHC and RHC at [place] on 10/24/2017 which showed angiographically normal coronary arteries, normal right-sided filling pressures with a mean RA pressure of 5 mmHg, mildly elevated pulmonary artery pressures with a mean PA pressure of 27 mmHg and PA pressure was 38/16mmHG, mildly elevated left-sided filling pressures with a mean PCWP of 18 mmHg with a directly measured LVEDP of 20 mmHg, normal cardiac output with a CO of 5.74 L/min with a cardiac index of 1.82 L/min/m2 using a the Albaro equation. Echo done in 02/18/2018 at [place] showed EF 10-15%, LV severely dilated, LA severely dilated, mod TR, grade 2 diastolic dysfunction, mod MR, mod reduced RV systolic function, RVSP 25.2mmHg. Past History Past Medical History: other (as per HPI) Medications and Allergies Allergies Allergy/AdvReac Type Severity Reaction Status Date / Time prochlorperazine Allergy Hives Verified 04/14/18 12:13 [From Compazine] Home Medications Medication Instructions Recorded Confirmed Last Taken Type oxyCODONE [roxiCODONE] 10 mg PO Q6H PRN tablet 07/11/18 12/30/18 11/04/18 Rx Aspirin EC 81 mg PO DAILY #30 tablet 12/25/18 12/30/18 12/29/18 08:00 Rx AtorvaSTATin [Lipitor] 40 mg PO QHS #60 tablet 12/25/18 12/30/18 Unknown Rx Carvedilol [Coreg] 25 mg PO BID #60 tablet 12/25/18 12/30/18 12/29/18 08:00 Rx Torsemide [Demadex] 60 mg PO BID #120 tablet 12/25/18 12/30/18 12/29/18 08:00 Rx Warfarin [Coumadin] 10 mg PO DAILY@1700 #30 tablet 12/25/18 12/30/18 12/29/18 08:00 Rx Active Meds: Active Medications Acetaminophen (Tylenol) 650 mg PO Q4H PRN PRN Reason: Pain MILD(1-3)/Fever >100.5/ROBERSON Aspirin (Halfprin Ec) 81 mg PO DAILY [facility] Last Admin: 12/30/18 09:48 Dose: 81 mg Documented by: Atorvastatin [facility]) [facility] Carvedilol (Coreg) 25 mg PO BID [facility] Last Admin: 12/30/18 09:48 Dose: 25 mg Documented by: Dextrose (D50w (25gm) Syringe) 50 ml IV PRN PRN PRN Reason: Hypoglycemia Famotidine (Pepcid) 20 mg PO QAM [facility] Last Admin: 12/30/18 09:48 Dose: 20 mg Documented by: Furosemide (Lasix) 40 mg IV Q12HR [facility] Last Admin: 12/30/18 09:48 Dose: 40 mg Documented by: Hydralazine HCl (Apresoline) 10 mg IV Q4H PRN PRN Reason: BP >160/100 Hydromorphone HCl (Dilaudid) 0.25 mg IV Q3H PRN PRN Reason: Pain, Moderate (4-6) Stop: 12/30/18 23:12 Last Admin: 12/30/18 10:06 Dose: 0.25 mg Documented by: Insulin Human Lispro (Humalog) 0 unit SUB-Q [facility]; Protocol Last Admin: 12/30/18 07:30 Dose: Not Given Documented by: Ondansetron HCl (Zofran) 4 mg IV Q8H PRN PRN Reason: Nausea And Vomiting Oxycodone HCl (Roxicodone) 10 mg PO Q6H PRN PRN Reason: Pain, Severe (7-10) Last Admin: 12/29/18 23:40 Dose: 10 mg Documented by: Oxycodone/Acetaminophen (Percocet 5/325) 1 tab PO Q6H PRN PRN Reason: Pain, Moderate (4-6) Last Admin: 12/30/18 03:37 Dose: 1 tab Documented by: Sodium Chloride (Sodium Chloride Flush Syringe 10 Ml) 10 ml IV BID [facility] Last Admin: 12/30/18 10:10 Dose: 10 ml Documented by: Sodium Chloride (Sodium Chloride Flush Syringe 10 Ml) 10 ml IV PRN PRN PRN Reason: LINE FLUSH Warfarin Sodium (Coumadin) 10 mg PO DAILY@1700 [facility]; Protocol Review of Systems Constitutional: no fever, no chills, no sweats Ears, nose, mouth and throat: no ear pain, no nose pain, no sinus pressure, no sinus pain Cardiovascular: orthopnea, edema, shortness of breath, dyspnea on exertion, paroxysmal nocturnal dyspnea, high blood pressure, leg edema, decreased exercise tolerance, no chest pain, no palpitations, no rapid/irregular heart beat, no syncope, no lightheadedness Respiratory: shortness of breath, dyspnea on exertion, no cough, no congestion, no wheezing, no pain on inspiration Gastrointestinal: no abdominal pain, no nausea, no vomiting, no diarrhea, no con stipation, no change in bowel habits Genitourinary Male: no dysuria, no hematuria, no flank pain, no discharge, no urinary frequency, no urinary hesitancy Musculoskeletal: no neck stiffness, no neck pain, no shooting arm pain, no arm numbness/tingling, no low back pain, no shooting leg pain Integumentary: no rash, no pruritis, no redness, no sores, no wounds Neurological: no head injury, no paralysis, no weakness, no parathesias, no numbness, no tingling, no seizures, no syncope Psychiatric: no anxiety Endocrine: no cold intolerance, no heat intolerance Hematologic/Lymphatic: no easy bruising, no easy bleeding Allergic/Immunologic: no urticaria, no wheezing Physical Examination Vital Signs Temp Pulse Resp BP Pulse Ox 98.3 F 84 21 124/82 97 12/29/18 18:07 12/29/18 18:07 12/29/18 18:07 12/29/18 18:07 12/29/18 18:07 General appearance: no acute distress HEENT: Positive: PERRL, Normocephaly, Mucus Membranes Moist Neck: Positive: neck supple, trachea midline Cardiac: Positive: Reg Rate and Rhythm, S1/S2 Lungs: Positive: Decreased Breath Sounds Neuro: Positive: Grossly Intact Abdomen: Negative: Tender Skin: Negative: Rash Musculoskeletal: No Pain Extremities: Present: +3 Edema (BLE lymphedema, pitting) Results 12/29/18 18:11 12/30/18 07:28 Cardiac Enzymes 12/29/18 12/30/18 Range/Units 21:17 07:28 AST 62 H 42 H (5-40) units/L Coagulation 12/29/18 Range/Units 18:11 PT 27.0 H (12.2-14.9) Sec. INR 2.55 H (0.87-1.13) APTT 37.3 H (24.2-36.6) Sec. Lipids 12/29/18 Range/Units 18:11 Triglycerides TNR Cholesterol TNR HDL Cholesterol TNR Cholesterol/HDL Ratio TNR CBC 12/29/18 Range/Units 18:11 WBC 5.0 (4.5-11.0) K/mm3 RBC 4.79 (3.65-5.03) M/mm3 Hgb 10.1 L (11.8-15.2) gm/dl Hct 33.8 L (35.5-45.6) % Plt Count 213 (140-440) K/mm3 Lymph # 1.0 L (1.2-5.4) K/mm3 [place] # 0.6 (0.0-0.8) K/mm3 Eos # 0.0 (0.0-0.4) K/mm3 Baso # 0.1 (0.0-0.1) K/mm3 Comprehensive Metabolic Panel 12/29/18 12/29/18 12/29/18 Range/Units 18:11 21:17 23:18 Sodium 136 L 130 L (137-145) mmol/L Potassium TNR 5.3 H Chloride 98.5 97.8 L (98-107) mmol/L Carbon Dioxide 26 18 L D (22-30) mmol/L BUN 37 H 35 H (9-20) mg/dL Creatinine 1.4 1.4 (0.8-1.5) mg/dL Glucose 127 H 100 (75-100) mg/dL Calcium 9.3 9.1 (8.4-10.2) mg/dL Direct Bilirubin 0.5 H (0-0.2) mg/dL Indirect Bilirubin 1.2 mg/dL AST 62 H (5-40) units/L ALT 64 H (7-56) units/L Alkaline Phosphatase 124 (35-129) units/L Total Protein 7.4 (6.3-8.2) g/dL Albumin 2.0 L (3.9-5) g/dL 12/30/18 Range/Units 07:28 Sodium 138 D (137-145) mmol/L Potassium 4.7 Chloride 98.5 (98-107) mmol/L Carbon Dioxide 28 D (22-30) mmol/L BUN 34 H (9-20) mg/dL Creatinine 1.6 H (0.8-1.5) mg/dL Glucose 88 (75-100) mg/dL Calcium 8.5 (8.4-10.2) mg/dL Direct Bilirubin (0-0.2) mg/dL Indirect Bilirubin mg/dL AST 42 H (5-40) units/L ALT 59 H (7-56) units/L Alkaline Phosphatase 122 (35-129) units/L Total Protein 6.8 (6.3-8.2) g/dL Albumin 3.1 L (3.9-5) g/dL - Imaging and Cardiology Echo: report reviewed (02/18/2018 at [place] showed EF 10-15%, LV severely dilated, LA severely dilated, mod TR, grade 2 diastolic dysfunction, mod MR, mod reduced RV systolic function, RVSP 25.2mmHg. ) EKG: report reviewed, image reviewed EKG interpretations - Telemetry EKG Rhythm: Sinus Rhythm - EKG Sinus rhythms and dysrhythmias: sinus rhythm Assessment and Plan Assessment: Acute on chronic HFrEF Dilated NICMP - EF 10-15% AICD in situ Atypical chest pain - ECG with no acute ischemic changes; currently resolved NSTEMI type II - Nicol trending downwards REJI / hyperkalemia Hyponatremia RLE DVT / subtherapeutic INR Frequent PVCs and NSVT LBBB HTN DM Morbid obesity Lymphedema Anemia Plan: Agree with present cardiac management. Monitor renal indices. The patient has been seen in conjunction with Dr. Silas Berg who agrees with the assessment and plan of care.
--- NOTE | 2018-12-30 12:33 | Progress Note ---
Assessment and Plan Assessment and plan: Chest pain, Cardiology following Continue Aspirin, Coreg,Lipitor Hyperkalemia, now resolved REJI Cr 1.6 today Monitor on lasix Acute on Chronic systolic heart failure. EF 10-15% Patient stated he ate too much salty food whwn he went visiting out of Town Continue Lasix iv, Coreg NICM s/p AICD placement Hypertension. Monitor BP Diabetes mellitus type 2. Fingerstick qac and hs Chronic DVT lower ext On Coumadin INR 2.55 therapeutic Morbid Obesity. Counseled on diet, exercise Full code status History Interval history: Bilateral leg swelling Chest pain Hospitalist Physical - Physical exam Narrative exam: Gen: Not in acute distress, lying in bed, HEENT: Normocephalic, atraumatic Neck: supple, no JVD Heart: S1 and S2 reg, no murmurs, rubs or gallop Lungs: Clear, no crackles, no wheeze Abd: soft, non tender, non distended, normal BS Ext: Marked Bilat edema, no clubbing, no cyanosis, Neuro: Awake,alert, oriented x 3, moves all ext, non focal Psych:Normal mood - Constitutional Vitals: Temp Pulse Resp BP Pulse Ox 97.7 F 82 19 130/106 96 12/30/18 02:33 12/29/18 19:30 12/30/18 05:30 12/30/18 02:33 12/30/18 05:30 General appearance: Present: no acute distress Results - Labs CBC & Chem 7: 12/29/18 18:11 12/30/18 07:28 Labs: Laboratory Last Values WBC 5.0 K/mm3 (4.5-11.0) 12/29/18 18:11 RBC 4.79 M/mm3 (3.65-5.03) 12/29/18 18:11 Hgb 10.1 gm/dl (11.8-15.2) L 12/29/18 18:11 Hct 33.8 % (35.5-45.6) L 12/29/18 18:11 MCV 71 fl (84-94) L 12/29/18 18:11 MCH 21 pg (28-32) L 12/29/18 18:11 MCHC 30 % (32-34) L 12/29/18 18:11 RDW 23.5 % (13.2-15.2) H 12/29/18 18:11 Plt Count 213 K/mm3 (140-440) 12/29/18 18:11 Lymph % (Auto) 20.3 % (13.4-35.0) 12/29/18 18:11 [place] % (Auto) 11.5 % (0.0-7.3) H 12/29/18 18:11 Eos % (Auto) 0.5 % (0.0-4.3) 12/29/18 18:11 Baso % (Auto) 1.1 % (0.0-1.8) 12/29/18 18:11 Lymph # 1.0 K/mm3 (1.2-5.4) L 12/29/18 18:11 [place] # 0.6 K/mm3 (0.0-0.8) 12/29/18 18:11 Eos # 0.0 K/mm3 (0.0-0.4) 12/29/18 18:11 Baso # 0.1 K/mm3 (0.0-0.1) 12/29/18 18:11 Seg Neutrophils % 66.6 % (40.0-70.0) 12/29/18 18:11 Seg Neutrophils # 3.3 K/mm3 (1.8-7.7) 12/29/18 18:11 PT 27.0 Sec. (12.2-14.9) H 12/29/18 18:11 INR 2.55 (0.87-1.13) H 12/29/18 18:11 APTT 37.3 Sec. (24.2-36.6) H 12/29/18 18:11 Sodium 138 mmol/L (137-145) D 12/30/18 07:28 Potassium 4.7 mmol/L (3.6-5.0) 12/30/18 07:28 Chloride 98.5 mmol/L (98-107) 12/30/18 07:28 Carbon Dioxide 28 mmol/L (22-30) D 12/30/18 07:28 16 mmol/L 12/30/18 07:28 BUN 34 mg/dL (9-20) H 12/30/18 07:28 1.6 mg/dL (0.8-1.5) H 12/30/18 07:28 Estimated GFR > 60 ml/min 12/30/18 07:28 21 % 12/30/18 07:28 Glucose 88 mg/dL (75-100) 12/30/18 07:28 POC Glucose 111 (70-105) H 12/30/18 11:28 Calcium 8.5 mg/dL (8.4-10.2) 12/30/18 07:28 1.70 mg/dL (0.1-1.2) H 12/30/18 07:28 0.5 mg/dL (0-0.2) H 12/29/18 23:18 1.2 mg/dL 12/29/18 23:18 AST 42 units/L (5-40) H 12/30/18 07:28 ALT 59 units/L (7-56) H 12/30/18 07:28 122 units/L (35-129) 12/30/18 07:28 0.049 ng/mL (0.00-0.029) H D 12/29/18 23:18 NT-Pro-B Natriuret Pep 2123 pg/mL (0-450) H 12/29/18 18:11 6.8 g/dL (6.3-8.2) 12/30/18 07:28 3.1 g/dL (3.9-5) L 12/30/18 07:28 0.8 % 12/30/18 07:28 Triglycerides TNR 12/29/18 18:11 Cholesterol TNR 12/29/18 18:11 TNR 12/29/18 18:11 TNR 12/29/18 18:11 TNR 12/29/18 18:11 Active Medications - Current Medications Current Medications: Generic Name Dose Route Start Last Admin Trade Name Freq PRN Reason Stop Dose Admin Acetaminophen 650 mg 12/29/18 23:13 Tylenol PO Q4H PRN Pain MILD(1-3)/Fever >100.5/ROBERSON Aspirin 81 mg 12/30/18 10:00 12/30/18 09:48 Halfprin Ec PO 81 mg DAILY [facility] Administration Atorvastatin Calcium 40 mg 12/30/18 22:00 Lipitor PO QHS [facility] Carvedilol 25 mg 12/30/18 10:00 12/30/18 09:48 Coreg PO 25 mg BID [facility] Administration Dextrose 50 ml 12/29/18 23:11 D50w (25gm) Syringe IV PRN PRN Hypoglycemia Famotidine 20 mg 12/30/18 10:00 12/30/18 09:48 Pepcid PO 20 mg QAM [facility] Administration Furosemide 40 mg 12/29/18 23:45 12/30/18 09:48 Lasix IV 40 mg Q12HR [facility] Administration Hydralazine HCl 10 mg 12/29/18 23:12 Apresoline IV Q4H PRN BP >160/100 Hydromorphone HCl 0.25 mg 12/29/18 23:13 12/30/18 10:06 Dilaudid IV 12/30/18 23:12 0.25 mg Q3H PRN Administration Pain, Moderate (4-6) Insulin Human Lispro 0 unit 12/30/18 07:30 12/30/18 07:30 Humalog SUB-Q Not Given ACHS [facility] Protocol Ondansetron HCl 4 mg 12/29/18 23:13 Zofran IV Q8H PRN Nausea And Vomiting Oxycodone HCl 10 mg 12/29/18 23:04 12/29/18 23:40 Roxicodone PO 10 mg Q6H PRN Administration Pain, Severe (7-10) Oxycodone/Acetaminophen 1 tab 12/29/18 23:13 12/30/18 03:37 Percocet 5/325 PO 1 tab Q6H PRN Administration Pain, Moderate (4-6) Sodium Chloride 10 ml 12/30/18 10:00 12/30/18 10:10 Sodium Chloride Flush Syringe 10 Ml IV 10 ml BID [facility] Administration Sodium Chloride 10 ml 12/29/18 23:13 Sodium Chloride Flush Syringe 10 Ml IV PRN PRN LINE FLUSH Warfarin Sodium 10 mg 12/30/18 17:00 Coumadin PO DAILY@1700 [facility] Protocol
[2018-12-30] MEDS: ROXICODONE PO PRN ×2 (13:10→21:36)
[2018-12-30] MEDS: COUMADIN PO SCH (18:15)
[2018-12-31] MEDS: ROXICODONE PO PRN ×4 (03:14→23:05)
[2018-12-31 07:24] LABS: INR 2.14 (0.87-1.13)
[2018-12-31 07:31] LABS: BUN/Creatinine Ratio 22; Blood Urea Nitrogen 31 mg/dL (9-20); Calcium 8.5 mg/dL (8.4-10.2); Hemolysis Index 0
[2018-12-31] MEDS: HumaLOG SUB-Q SCH ×4 (07:42→23:08)
[2018-12-31] MEDS: COREG PO SCH ×2 (09:52→23:06)
[2018-12-31] MEDS: HALFPRIN EC PO SCH (09:52)
[2018-12-31] MEDS: LASIX IV SCH ×2 (09:52→23:08)
[2018-12-31] MEDS: PEPCID PO SCH (09:53)
[2018-12-31] MEDS: SODIUM CHLORIDE FLUSH SYRINGE 10 ML IV SCH ×2 (09:53→23:08)
--- NOTE | 2018-12-31 09:59 | Progress Note ---
Assessment and Plan Assessment: Acute on chronic HFrEF Dilated NICMP - EF 10-15% AICD in situ Atypical chest pain - ECG with no acute ischemic changes; currently resolved NSTEMI type II - Nicol trending downwards REJI / hyperkalemia Hyponatremia RLE DVT / subtherapeutic INR Frequent PVCs and NSVT LBBB HTN DM Morbid obesity Lymphedema Anemia Plan: Cont present cardiac management. Monitor renal indices. The patient has been seen in conjunction with Dr. Silas Berg who agrees with the assessment and plan of care. Subjective Date of service: 12/31/18 Principal diagnosis: HF Interval history: pt resting in bed, states he is feeling a little better. Objective Last Vital Signs Temp 98.3 F 12/31/18 06:00 Pulse 90 12/31/18 09:52 Resp 20 12/31/18 06:00 BP 128/83 12/31/18 09:52 Pulse Ox 100 12/31/18 06:00 - Physical Examination General: No Apparent Distress HEENT: Positive: PERRL, Normocephaly, Mucus Membranes Moist Neck: Positive: neck supple, trachea midline Cardiac: Positive: Reg Rate and Rhythm, S1/S2 Lungs: Positive: Decreased Breath Sounds Neuro: Positive: Grossly Intact Abdomen: Negative: Tender Skin: Negative: Rash Musculoskeletal: No Pain Extremities: Present: +3 Edema (BLE lymphedema, pitting) - Labs and Meds Coagulation 12/31/18 Range/Units 06:24 PT 23.5 H (12.2-14.9) Sec. INR 2.14 H (0.87-1.13) Comprehensive Metabolic Panel 12/31/18 Range/Units 06:24 Sodium 135 L (137-145) mmol/L Potassium 4.8 (3.6-5.0) mmol/L Chloride 96.6 L (98-107) mmol/L Carbon Dioxide 27 (22-30) mmol/L BUN 31 H (9-20) mg/dL Creatinine 1.4 (0.8-1.5) mg/dL Glucose 97 (75-100) mg/dL Calcium 8.5 (8.4-10.2) mg/dL - Imaging and Cardiology EKG: report reviewed, image reviewed Echo: report reviewed (02/18/2018 at [place] showed EF 10-15%, LV severely dilated, LA severely dilated, mod TR, grade 2 diastolic dysfunction, mod MR, mod reduced RV systolic function, RVSP 25.2mmHg. ) - EKG Sinus rhythms and dysrhythmias: sinus rhythm
[2018-12-31] MEDS: PERCOCET 5/325 PO PRN ×2 (11:43→18:40)
--- NOTE | 2018-12-31 16:32 | Progress Note ---
Assessment and Plan Assessment and plan: Chest pain, Cardiology following Continue Aspirin, Coreg,Lipitor Hyperkalemia, now resolved REJI Cr improving continue lasix Monitor on lasix Acute on Chronic systolic heart failure. EF 10-15% Patient stated he ate too much salty food whwn he went visiting out of Town Continue Lasix iv, Coreg NICM s/p AICD placement Hypertension. Monitor BP Diabetes mellitus type 2. Fingerstick qac and hs Chronic DVT lower ext On Coumadin INR 2.14 therapeutic Morbid Obesity. Counseled on diet, exercise Full code status History Interval history: Bilateral leg swelling Chest pain Patient admits to eating salty food Hospitalist Physical - Physical exam Narrative exam: Gen: Not in acute distress, lying in bed, morbidly obese HEENT: Normocephalic, atraumatic Neck: supple, no JVD Heart: S1 and S2 reg, no murmurs, rubs or gallop Lungs: Clear, no crackles, no wheeze Abd: soft, non tender, non distended, normal BS Ext: Marked Bilat edema, no clubbing, no cyanosis, chronic lymphedema Neuro: Awake,alert, oriented x 3, moves all ext, non focal Psych:Normal mood - Constitutional Vitals: Temp Pulse Resp BP Pulse Ox 97.6 F 67 20 110/69 100 12/31/18 16:24 12/31/18 16:24 12/31/18 16:24 12/31/18 16:24 12/31/18 16:24 General appearance: Present: no acute distress Results - Labs CBC & Chem 7: 12/29/18 18:11 12/31/18 06:24 Labs: Laboratory Last Values WBC 5.0 K/mm3 (4.5-11.0) 12/29/18 18:11 RBC 4.79 M/mm3 (3.65-5.03) 12/29/18 18:11 Hgb 10.1 gm/dl (11.8-15.2) L 12/29/18 18:11 Hct 33.8 % (35.5-45.6) L 12/29/18 18:11 MCV 71 fl (84-94) L 12/29/18 18:11 MCH 21 pg (28-32) L 12/29/18 18:11 MCHC 30 % (32-34) L 12/29/18 18:11 RDW 23.5 % (13.2-15.2) H 12/29/18 18:11 Plt Count 213 K/mm3 (140-440) 12/29/18 18:11 Lymph % (Auto) 20.3 % (13.4-35.0) 12/29/18 18:11 [place] % (Auto) 11.5 % (0.0-7.3) H 12/29/18 18:11 Eos % (Auto) 0.5 % (0.0-4.3) 12/29/18 18:11 Baso % (Auto) 1.1 % (0.0-1.8) 12/29/18 18:11 Lymph # 1.0 K/mm3 (1.2-5.4) L 12/29/18 18:11 [place] # 0.6 K/mm3 (0.0-0.8) 12/29/18 18:11 Eos # 0.0 K/mm3 (0.0-0.4) 12/29/18 18:11 Baso # 0.1 K/mm3 (0.0-0.1) 12/29/18 18:11 Seg Neutrophils % 66.6 % (40.0-70.0) 12/29/18 18:11 Seg Neutrophils # 3.3 K/mm3 (1.8-7.7) 12/29/18 18:11 PT 23.5 Sec. (12.2-14.9) H 12/31/18 06:24 INR 2.14 (0.87-1.13) H 12/31/18 06:24 APTT 37.3 Sec. (24.2-36.6) H 12/29/18 18:11 Sodium 135 mmol/L (137-145) L 12/31/18 06:24 Potassium 4.8 mmol/L (3.6-5.0) 12/31/18 06:24 Chloride 96.6 mmol/L (98-107) L 12/31/18 06:24 Carbon Dioxide 27 mmol/L (22-30) 12/31/18 06:24 16 mmol/L 12/31/18 06:24 BUN 31 mg/dL (9-20) H 12/31/18 06:24 1.4 mg/dL (0.8-1.5) 12/31/18 06:24 Estimated GFR > 60 ml/min 12/31/18 06:24 22 % 12/31/18 06:24 Glucose 97 mg/dL (75-100) 12/31/18 06:24 POC Glucose 103 (70-105) 12/31/18 08:21 Calcium 8.5 mg/dL (8.4-10.2) 12/31/18 06:24 1.70 mg/dL (0.1-1.2) H 12/30/18 07:28 0.5 mg/dL (0-0.2) H 12/29/18 23:18 1.2 mg/dL 12/29/18 23:18 AST 42 units/L (5-40) H 12/30/18 07:28 ALT 59 units/L (7-56) H 12/30/18 07:28 122 units/L (35-129) 12/30/18 07:28 0.049 ng/mL (0.00-0.029) H D 12/29/18 23:18 NT-Pro-B Natriuret Pep 2123 pg/mL (0-450) H 12/29/18 18:11 6.8 g/dL (6.3-8.2) 12/30/18 07:28 3.1 g/dL (3.9-5) L 12/30/18 07:28 0.8 % 12/30/18 07:28 Triglycerides TNR 12/29/18 18:11 Cholesterol TNR 12/29/18 18:11 TNR 12/29/18 18:11 TNR 12/29/18 18:11 TNR 12/29/18 18:11 Active Medications - Current Medications Current Medications: Generic Name Dose Route Start Last Admin Trade Name Freq PRN Reason Stop Dose Admin Acetaminophen 650 mg 12/29/18 23:13 Tylenol PO Q4H PRN Pain MILD(1-3)/Fever >100.5/ROBERSON Aspirin 81 mg 12/30/18 10:00 12/31/18 09:52 Halfprin Ec PO 81 mg DAILY [facility] Administration Atorvastatin Calcium 40 mg 12/30/18 22:00 12/30/18 21:18 Lipitor PO 40 mg QHS [facility] Administration Carvedilol 25 mg 12/30/18 10:00 12/31/18 09:52 Coreg PO 25 mg BID [facility] Administration Dextrose 50 ml 12/29/18 23:11 D50w (25gm) Syringe IV PRN PRN Hypoglycemia Famotidine 20 mg 12/30/18 10:00 12/31/18 09:53 Pepcid PO 20 mg QAM [facility] Administration Furosemide 40 mg 12/29/18 23:45 12/31/18 09:52 Lasix IV 40 mg Q12HR [facility] Administration Hydralazine HCl 10 mg 12/29/18 23:12 Apresoline IV Q4H PRN BP >160/100 Insulin Human Lispro 0 unit 12/30/18 07:30 12/31/18 11:30 Humalog SUB-Q Not Given ACHS [facility] Protocol Ondansetron HCl 4 mg 12/29/18 23:13 Zofran IV Q8H PRN Nausea And Vomiting Oxycodone HCl 10 mg 12/29/18 23:04 12/31/18 15:18 Roxicodone PO 10 mg Q6H PRN Administration Pain, Severe (7-10) Oxycodone/Acetaminophen 1 tab 12/29/18 23:13 12/31/18 11:43 Percocet 5/325 PO 1 tab Q6H PRN Administration Pain, Moderate (4-6) Sodium Chloride 10 ml 12/30/18 10:00 12/31/18 09:53 Sodium Chloride Flush Syringe 10 Ml IV 10 ml BID [facility] Administration Sodium Chloride 10 ml 12/29/18 23:13 Sodium Chloride Flush Syringe 10 Ml IV PRN PRN LINE FLUSH Warfarin Sodium 10 mg 12/30/18 17:00 12/30/18 18:15 Coumadin PO 10 mg DAILY@1700 [facility] Administration Protocol Nutrition/Malnutrition Assess - Dietary Evaluation Nutrition/Malnutrition Findings: Nutrition Notes Start: 12/30/18 16:54 Freq: Status: Active Protocol: Document 12/30/18 16:54 RM (Rec: 12/30/18 16:55 RM [id number]) Nutrition Notes Need for Assessment generated from: MD Order Initial or Follow up Brief Note Current Diagnosis Coronary Artery Disease, Diabetes,Hypertension,Heart Failure Labs/Tests A1c 7.5 per Hx and physical Subjective/Other Information Consulted for DM diet education. Screened for Coumadin/Vit K diet education. Pt already famliar w/both diets. Nutrition Intervention Revisit per MD consult or patient Sign Off request:
[2018-12-31] MEDS: COUMADIN PO SCH (17:48)
[2019-01-01] MEDS: PERCOCET 5/325 PO PRN ×2 (05:39→12:39)
[2019-01-01] MEDS: HumaLOG SUB-Q SCH ×4 (07:30→22:23)
[2019-01-01] MEDS: ROXICODONE PO PRN ×3 (08:58→22:29)
[2019-01-01] MEDS: COREG PO SCH ×2 (10:18→22:22)
[2019-01-01] MEDS: PEPCID PO SCH (10:18)
[2019-01-01] MEDS: HALFPRIN EC PO SCH (10:18)
[2019-01-01] MEDS: SODIUM CHLORIDE FLUSH SYRINGE 10 ML IV SCH ×2 (10:19→22:24)
[2019-01-01] MEDS: LASIX IV SCH (10:19)
--- NOTE | 2019-01-01 10:36 | Progress Note ---
Assessment and Plan Assessment: Acute on chronic HFrEF Dilated NICMP - EF 10-15% AICD in situ Atypical chest pain - ECG with no acute ischemic changes; currently resolved NSTEMI type II - Nicol trending downwards REJI / hyperkalemia Hyponatremia RLE DVT / subtherapeutic INR Frequent PVCs and NSVT LBBB HTN DM Morbid obesity Lymphedema Anemia Plan: BLE edema persists, pt does not believe diuresis is adequate enough on IV lasix BID. Will convert to IV bumex BID and cont to monitor renal indices. Can consider addition of zaroxolyn if necessary. The patient has been seen in conjunction with Dr. Silas Berg who agrees with the assessment and plan of care. Subjective Date of service: 01/01/19 Principal diagnosis: HF Interval history: pt resting in bed, BLE edema persists. Objective Last Vital Signs Temp 97.5 F L 01/01/19 04:37 Pulse 69 01/01/19 10:18 Resp 20 01/01/19 04:37 BP 124/85 01/01/19 10:18 Pulse Ox 95 01/01/19 04:37 - Physical Examination General: No Apparent Distress HEENT: Positive: PERRL, Normocephaly, Mucus Membranes Moist Neck: Positive: neck supple, trachea midline Cardiac: Positive: Reg Rate and Rhythm, S1/S2 Lungs: Positive: Decreased Breath Sounds Neuro: Positive: Grossly Intact Abdomen: Negative: Tender Skin: Negative: Rash Musculoskeletal: No Pain Extremities: Present: +3 Edema (BLE lymphedema, pitting) - Imaging and Cardiology EKG: report reviewed, image reviewed Echo: report reviewed (02/18/2018 at [facility] showed EF 10-15%, LV severely dilated, LA severely dilated, mod TR, grade 2 diastolic dysfunction, mod MR, mod reduced RV systolic function, RVSP 25.2mmHg. ) - EKG Sinus rhythms and dysrhythmias: sinus rhythm
--- NOTE | 2019-01-01 12:54 | Progress Note ---
Assessment and Plan Assessment and plan: Chest pain, Cardiology following Continue Aspirin, Coreg,Lipitor Hyperkalemia, now resolved REJI Cr improving continue lasix Monitor on lasix Acute on Chronic systolic heart failure. EF 10-15% Patient stated he ate too much salty food when he went visiting out of Town Also missed meds for 1 week Continue Lasix iv, Coreg NICM s/p AICD placement Hypertension. Monitor BP Diabetes mellitus type 2. Fingerstick qac and hs Chronic DVT lower ext On Coumadin INR 2.14 therapeutic Morbid Obesity. Counseled on diet, exercise Full code status History Interval history: Bilateral leg swelling Chest pain Patient did not take meds for 1 week Patient admits to eating salty food Hospitalist Physical - Physical exam Narrative exam: Gen: Not in acute distress, lying in bed, morbidly obese HEENT: Normocephalic, atraumatic Neck: supple, no JVD Heart: S1 and S2 reg, no murmurs, rubs or gallop Lungs: Clear, no crackles, no wheeze Abd: soft, non tender, non distended, normal BS Ext: Marked Bilat lower ext edema, no clubbing, no cyanosis, chronic lymphedema Neuro: Awake,alert, oriented x 3, moves all ext, non focal Psych:Normal mood - Constitutional Vitals: Temp Pulse Resp BP Pulse Ox 97.5 F L 69 20 124/85 95 01/01/19 04:37 01/01/19 10:18 01/01/19 04:37 01/01/19 10:18 01/01/19 04:37 General appearance: Present: no acute distress Results - Labs CBC & Chem 7: 12/29/18 18:11 12/31/18 06:24 Labs: Laboratory Last Values WBC 5.0 K/mm3 (4.5-11.0) 12/29/18 18:11 RBC 4.79 M/mm3 (3.65-5.03) 12/29/18 18:11 Hgb 10.1 gm/dl (11.8-15.2) L 12/29/18 18:11 Hct 33.8 % (35.5-45.6) L 12/29/18 18:11 MCV 71 fl (84-94) L 12/29/18 18:11 MCH 21 pg (28-32) L 12/29/18 18:11 MCHC 30 % (32-34) L 12/29/18 18:11 RDW 23.5 % (13.2-15.2) H 12/29/18 18:11 Plt Count 213 K/mm3 (140-440) 12/29/18 18:11 Lymph % (Auto) 20.3 % (13.4-35.0) 12/29/18 18:11 [place] % (Auto) 11.5 % (0.0-7.3) H 12/29/18 18:11 Eos % (Auto) 0.5 % (0.0-4.3) 12/29/18 18:11 Baso % (Auto) 1.1 % (0.0-1.8) 12/29/18 18:11 Lymph # 1.0 K/mm3 (1.2-5.4) L 12/29/18 18:11 [place] # 0.6 K/mm3 (0.0-0.8) 12/29/18 18:11 Eos # 0.0 K/mm3 (0.0-0.4) 12/29/18 18:11 Baso # 0.1 K/mm3 (0.0-0.1) 12/29/18 18:11 Seg Neutrophils % 66.6 % (40.0-70.0) 12/29/18 18:11 Seg Neutrophils # 3.3 K/mm3 (1.8-7.7) 12/29/18 18:11 PT 23.5 Sec. (12.2-14.9) H 12/31/18 06:24 INR 2.14 (0.87-1.13) H 12/31/18 06:24 APTT 37.3 Sec. (24.2-36.6) H 12/29/18 18:11 Sodium 135 mmol/L (137-145) L 12/31/18 06:24 Potassium 4.8 mmol/L (3.6-5.0) 12/31/18 06:24 Chloride 96.6 mmol/L (98-107) L 12/31/18 06:24 Carbon Dioxide 27 mmol/L (22-30) 12/31/18 06:24 16 mmol/L 12/31/18 06:24 BUN 31 mg/dL (9-20) H 12/31/18 06:24 1.4 mg/dL (0.8-1.5) 12/31/18 06:24 Estimated GFR > 60 ml/min 12/31/18 06:24 22 % 12/31/18 06:24 Glucose 97 mg/dL (75-100) 12/31/18 06:24 POC Glucose 78 (70-105) 01/01/19 08:14 Calcium 8.5 mg/dL (8.4-10.2) 12/31/18 06:24 1.70 mg/dL (0.1-1.2) H 12/30/18 07:28 0.5 mg/dL (0-0.2) H 12/29/18 23:18 1.2 mg/dL 12/29/18 23:18 AST 42 units/L (5-40) H 12/30/18 07:28 ALT 59 units/L (7-56) H 12/30/18 07:28 122 units/L (35-129) 12/30/18 07:28 0.049 ng/mL (0.00-0.029) H D 12/29/18 23:18 NT-Pro-B Natriuret Pep 2123 pg/mL (0-450) H 12/29/18 18:11 6.8 g/dL (6.3-8.2) 12/30/18 07:28 3.1 g/dL (3.9-5) L 12/30/18 07:28 0.8 % 12/30/18 07:28 Triglycerides TNR 12/29/18 18:11 Cholesterol TNR 12/29/18 18:11 TNR 12/29/18 18:11 TNR 12/29/18 18:11 TNR 12/29/18 18:11 Active Medications - Current Medications Current Medications: Generic Name Dose Route Start Last Admin Trade Name Freq PRN Reason Stop Dose Admin Acetaminophen 650 mg 12/29/18 23:13 Tylenol PO Q4H PRN Pain MILD(1-3)/Fever >100.5/ROBERSON Aspirin 81 mg 12/30/18 10:00 01/01/19 10:18 Halfprin Ec PO 81 mg DAILY [facility] Administration Atorvastatin Calcium 40 mg 12/30/18 22:00 12/31/18 23:05 Lipitor PO 40 mg QHS [facility] Administration Bumetanide 1 mg 01/01/19 18:00 Bumex IV BID@0600,1800 [facility] Carvedilol 25 mg 12/30/18 10:00 01/01/19 10:18 Coreg PO 25 mg BID [facility] Administration Dextrose 50 ml 12/29/18 23:11 D50w (25gm) Syringe IV PRN PRN Hypoglycemia Famotidine 20 mg 12/30/18 10:00 01/01/19 10:18 Pepcid PO 20 mg QAM [facility] Administration Hydralazine HCl 10 mg 12/29/18 23:12 Apresoline IV Q4H PRN BP >160/100 Insulin Human Lispro 0 unit 12/30/18 07:30 01/01/19 11:30 Humalog SUB-Q Not Given ACHS [facility] Protocol Ondansetron HCl 4 mg 12/29/18 23:13 Zofran IV Q8H PRN Nausea And Vomiting Oxycodone HCl 10 mg 12/29/18 23:04 01/01/19 08:58 Roxicodone PO 10 mg Q6H PRN Administration Pain, Severe (7-10) Oxycodone/Acetaminophen 1 tab 12/29/18 23:13 01/01/19 12:39 Percocet 5/325 PO 1 tab Q6H PRN Administration Pain, Moderate (4-6) Sodium Chloride 10 ml 12/30/18 10:00 01/01/19 10:19 Sodium Chloride Flush Syringe 10 Ml IV 10 ml BID CODY Administration Sodium Chloride 10 ml 12/29/18 23:13 Sodium Chloride Flush Syringe 10 Ml IV PRN PRN LINE FLUSH Warfarin Sodium 10 mg 12/30/18 17:00 12/31/18 17:48 Coumadin PO 10 mg DAILY@1700 [facility] Administration Protocol Nutrition/Malnutrition Assess - Dietary Evaluation Nutrition/Malnutrition Findings: Nutrition Notes Start: 12/30/18 16:54 Freq: Status: Active Protocol: Document 12/30/18 16:54 RM (Rec: 12/30/18 16:55 RM [id number]) Nutrition Notes Need for Assessment generated from: MD Order Initial or Follow up Brief Note Current Diagnosis Coronary Artery Disease, Diabetes,Hypertension,Heart Failure Labs/Tests A1c 7.5 per Hx and physical Subjective/Other Information Consulted for DM diet education. Screened for Coumadin/Vit K diet education. Pt already famliar w/both diets. Nutrition Intervention Revisit per MD consult or patient Sign Off request:
[2019-01-01 12:58] LABS: INR 2.21 (0.87-1.13)
[2019-01-01 14:03] LABS: BUN/Creatinine Ratio 21; Blood Urea Nitrogen 30 mg/dL (9-20); Calcium 9.1 mg/dL (8.4-10.2); Hemolysis Index 6
[2019-01-01] MEDS: COUMADIN PO SCH (16:13)
[2019-01-01] MEDS: BUMEX IV SCH (17:39)
[2019-01-02] MEDS: PERCOCET 5/325 PO PRN ×3 (02:27→16:20)
[2019-01-02] MEDS: BUMEX IV SCH ×2 (05:13→18:06)
[2019-01-02] MEDS: ROXICODONE PO PRN ×3 (05:21→20:18)
[2019-01-02 07:12] LABS: BUN/Creatinine Ratio 20; Blood Urea Nitrogen 30 mg/dL (9-20); Calcium 8.9 mg/dL (8.4-10.2); Hemolysis Index 0
[2019-01-02 07:25] LABS: INR 2.28 (0.87-1.13)
[2019-01-02] MEDS: HumaLOG SUB-Q SCH ×4 (08:44→21:36)
--- NOTE | 2019-01-02 09:23 | Progress Note ---
Assessment and Plan Assessment and plan: 33-year-old morbidly obese -[place] male with history of chronic systolic heart failure, CAD, dilated nonischemic cardiomyopathy with ejection fraction 10-15%(Echo 02/28), status post AICD, right lower extremity DVT PE, lymph edema R>L, hypertension, diabetes, and chronic renal failure who presents to [facility] with complaints of worsening bilateral lower extremity edema, chest pain and sob. He was diagnosed with CHF exacerbation, started on Lasix and admitted. cardiology was consulted and he is being followed by cardiology. Was initially on Lasix iv, now on Bumex iv. Hopefully dc home in 1-2 days. Chest pain, Cardiology following Continue Aspirin, Coreg,Lipitor Hyperkalemia, now resolved REJI Monitor BMP on Bumex Acute on Chronic systolic heart failure. EF 10-15% Patient stated he ate too much salty food when he went visiting out of Town Also missed meds for 1 week Continue Bumex iv, Coreg NICM s/p AICD placement Hypertension. Monitor BP Diabetes mellitus type 2. Fingerstick qac and hs Chronic DVT lower ext On Coumadin INR 2.28 therapeutic Morbid Obesity. Counseled on diet, exercise Full code status History Interval history: Bilateral leg swelling Chest pain, resolved Patient did not take meds for 1 week Patient admits to eating salty food Hospitalist Physical - Constitutional Vitals: Temp Pulse Resp BP Pulse Ox 98.2 F 64 24 121/72 99 01/02/19 05:37 01/02/19 05:37 01/02/19 05:37 01/02/19 05:37 01/02/19 05:37 General appearance: Present: no acute distress Results - Labs CBC & Chem 7: 12/29/18 18:11 01/02/19 06:10 Labs: Laboratory Last Values WBC 5.0 K/mm3 (4.5-11.0) 12/29/18 18:11 RBC 4.79 M/mm3 (3.65-5.03) 12/29/18 18:11 Hgb 10.1 gm/dl (11.8-15.2) L 12/29/18 18:11 Hct 33.8 % (35.5-45.6) L 12/29/18 18:11 MCV 71 fl (84-94) L 12/29/18 18:11 MCH 21 pg (28-32) L 12/29/18 18:11 MCHC 30 % (32-34) L 12/29/18 18:11 RDW 23.5 % (13.2-15.2) H 12/29/18 18:11 Plt Count 213 K/mm3 (140-440) 12/29/18 18:11 Lymph % (Auto) 20.3 % (13.4-35.0) 12/29/18 18:11 [place] % (Auto) 11.5 % (0.0-7.3) H 12/29/18 18:11 Eos % (Auto) 0.5 % (0.0-4.3) 12/29/18 18:11 Baso % (Auto) 1.1 % (0.0-1.8) 12/29/18 18:11 Lymph # 1.0 K/mm3 (1.2-5.4) L 12/29/18 18:11 [place] # 0.6 K/mm3 (0.0-0.8) 12/29/18 18:11 Eos # 0.0 K/mm3 (0.0-0.4) 12/29/18 18:11 Baso # 0.1 K/mm3 (0.0-0.1) 12/29/18 18:11 Seg Neutrophils % 66.6 % (40.0-70.0) 12/29/18 18:11 Seg Neutrophils # 3.3 K/mm3 (1.8-7.7) 12/29/18 18:11 PT 24.7 Sec. (12.2-14.9) H 01/02/19 06:10 INR 2.28 (0.87-1.13) H 01/02/19 06:10 APTT 37.3 Sec. (24.2-36.6) H 12/29/18 18:11 Sodium 136 mmol/L (137-145) L 01/02/19 06:10 Potassium 4.9 mmol/L (3.6-5.0) 01/02/19 06:10 Chloride 96.5 mmol/L (98-107) L 01/02/19 06:10 Carbon Dioxide 28 mmol/L (22-30) 01/02/19 06:10 16 mmol/L 01/02/19 06:10 BUN 30 mg/dL (9-20) H 01/02/19 06:10 1.5 mg/dL (0.8-1.5) 01/02/19 06:10 Estimated GFR > 60 ml/min 01/02/19 06:10 20 % 01/02/19 06:10 Glucose 117 mg/dL (75-100) H 01/02/19 06:10 POC Glucose 136 (70-105) H 01/02/19 08:08 Calcium 8.9 mg/dL (8.4-10.2) 01/02/19 06:10 1.70 mg/dL (0.1-1.2) H 12/30/18 07:28 0.5 mg/dL (0-0.2) H 12/29/18 23:18 1.2 mg/dL 12/29/18 23:18 AST 42 units/L (5-40) H 12/30/18 07:28 ALT 59 units/L (7-56) H 12/30/18 07:28 122 units/L (35-129) 12/30/18 07:28 0.049 ng/mL (0.00-0.029) H D 12/29/18 23:18 NT-Pro-B Natriuret Pep 2123 pg/mL (0-450) H 12/29/18 18:11 6.8 g/dL (6.3-8.2) 12/30/18 07:28 3.1 g/dL (3.9-5) L 12/30/18 07:28 0.8 % 12/30/18 07:28 Triglycerides TNR 12/29/18 18:11 Cholesterol TNR 12/29/18 18:11 TNR 12/29/18 18:11 TNR 12/29/18 18:11 TNR 12/29/18 18:11 Active Medications - Current Medications Current Medications: Generic Name Dose Route Start Last Admin Trade Name Freq PRN Reason Stop Dose Admin Acetaminophen 650 mg 12/29/18 23:13 Tylenol PO Q4H PRN Pain MILD(1-3)/Fever >100.5/ROBERSON Aspirin 81 mg 12/30/18 10:00 01/01/19 10:18 Halfprin Ec PO 81 mg DAILY [facility] Administration Atorvastatin Calcium 40 mg 12/30/18 22:00 06/21/19 22:22 Lipitor PO 40 mg QHS [facility] Administration Bumetanide 1 mg 01/01/19 18:00 01/02/19 05:13 Bumex IV 1 mg BID@0600,1800 [facility] Administration Carvedilol 25 mg 12/30/18 10:00 01/01/19 22:22 Coreg PO 25 mg BID [facility] Administration Dextrose 50 ml 12/29/18 23:11 D50w (25gm) Syringe IV PRN PRN Hypoglycemia Famotidine 20 mg 12/30/18 10:00 01/01/19 10:18 Pepcid PO 20 mg QAM [facility] Administration Hydralazine HCl 10 mg 12/29/18 23:12 Apresoline IV Q4H PRN BP >160/100 Insulin Human Lispro 0 unit 12/30/18 07:30 01/02/19 08:44 Humalog SUB-Q Not Given ACHS [facility] Protocol Ondansetron HCl 4 mg 12/29/18 23:13 Zofran IV Q8H PRN Nausea And Vomiting Oxycodone HCl 10 mg 12/29/18 23:04 01/02/19 05:21 Roxicodone PO 10 mg Q6H PRN Administration Pain, Severe (7-10) Oxycodone/Acetaminophen 1 tab 12/29/18 23:13 01/02/19 02:27 Percocet 5/325 PO 1 tab Q6H PRN Administration Pain, Moderate (4-6) Sodium Chloride 10 ml 12/30/18 10:00 01/01/19 22:24 Sodium Chloride Flush Syringe 10 Ml IV 10 ml BID [facility] Administration Sodium Chloride 10 ml 12/29/18 23:13 Sodium Chloride Flush Syringe 10 Ml IV PRN PRN LINE FLUSH Warfarin Sodium 10 mg 12/30/18 17:00 01/01/19 16:13 Coumadin PO 10 mg DAILY@1700 [facility] Administration Protocol Nutrition/Malnutrition Assess - Dietary Evaluation Nutrition/Malnutrition Findings: Nutrition Notes Start: 12/30/18 16:54 Freq: Status: Active Protocol: Document 12/30/18 16:54 RM (Rec: 12/30/18 16:55 RM [id number]) Nutrition Notes Need for Assessment generated from: MD Order Initial or Follow up Brief Note Current Diagnosis Coronary Artery Disease, Diabetes,Hypertension,Heart Failure Labs/Tests A1c 7.5 per Hx and physical Subjective/Other Information Consulted for DM diet education. Screened for Coumadin/Vit K diet education. Pt already famliar w/both diets. Nutrition Intervention Revisit per MD consult or patient Sign Off request:
[2019-01-02] MEDS: PEPCID PO SCH (09:48)
[2019-01-02] MEDS: SODIUM CHLORIDE FLUSH SYRINGE 10 ML IV SCH ×2 (09:48→21:36)
[2019-01-02] MEDS: COREG PO SCH ×2 (09:48→21:36)
[2019-01-02] MEDS: HALFPRIN EC PO SCH (09:48)
--- NOTE | 2019-01-02 11:28 | Progress Note ---
Assessment and Plan Patient's cardiac status is improving. Continue Bumex and add Zaroxolyn. Continue other cardiac management. Strict I/O. Patient seen in conjunction with Dr. Domínguez, who agrees with assessment and plan. - Patient Problems (1) Acute on chronic systolic (congestive) heart failure Current Visit: Yes Status: Acute (2) Atypical chest pain Current Visit: Yes Status: Resolved (3) Leg edema Current Visit: Yes Status: Acute (4) ACS (acute coronary syndrome) Current Visit: No Status: Acute (5) REJI (acute kidney injury) Current Visit: No Status: Acute (6) AICD (automatic cardioverter/defibrillator) present Current Visit: No Status: Chronic (7) Deep vein thrombosis (DVT) of right lower extremity Current Visit: No Status: Chronic Qualifiers: Affected thrombotic vein of extremity: popliteal Chronicity: chronic Qualified Code(s): I82.531 - Chronic embolism and thrombosis of right popliteal vein (8) Diabetes mellitus Current Visit: No Status: Chronic Qualifiers: Diabetes mellitus type: type 2 (9) HTN (hypertension) Current Visit: No Status: Chronic Qualifiers: Hypertension type: essential hypertension Qualified Code(s): I10 - Essential (primary) hypertension (10) Lymphedema Current Visit: Yes Status: Chronic (11) Morbid obesity Current Visit: Yes Status: Chronic (12) NICM (nonischemic cardiomyopathy) Current Visit: Yes Status: Chronic Subjective Date of service: 01/02/19 Principal diagnosis: HF Interval history: Patient reports breathing better and an improvement in edema, but states he's "not there yet." Net I/O -2L. SR in 60s on telemetry. Cr and electrolytes improving. Objective - Constitutional Vitals: Last Vital Signs Temp 98.2 F 01/02/19 05:37 Pulse 64 01/02/19 05:37 Resp 24 01/02/19 05:37 BP 121/72 01/02/19 05:37 Pulse Ox 99 01/02/19 05:37 General appearance: Present: no acute distress - EENT Eyes: PERRL ENT: hearing intact - Neck Neck: supple - Respiratory Respiratory effort: normal - Breasts Breasts: deferred - Cardiovascular Rhythm: regular Extremities: pulses intact Extremity abnormal: edema (Trace edema to LLE. Chronic lymphedema to RLE.) - Gastrointestinal General gastrointestinal: Present: soft, other (Obese) Rectal Exam: deferred - Genitourinary Male genitourinary: deferred - Integumentary Integumentary: warm, dry - Musculoskeletal Musculoskeletal: other (Able to walk only from bed to bathroom at this time. ) - Neurologic Neurologic: other (Deferred) - Psychiatric Psychiatric: appropriate mood/affect - Labs CBC & Chem 7: 12/29/18 18:11 01/02/19 06:10 Labs: Abnormal lab results 01/01/19 01/01/19 01/01/19 Range/Units 12:14 12:17 12:17 PT 24.1 H (12.2-14.9) Sec. INR 2.21 H (0.87-1.13) Sodium 136 L (137-145) mmol/L Chloride 97.0 L (98-107) mmol/L BUN 30 H (9-20) mg/dL Glucose 112 H (75-100) mg/dL POC Glucose 112 H (70-105) 01/01/19 01/01/19 01/02/19 Range/Units 15:39 21:14 06:10 PT 24.7 H (12.2-14.9) Sec. INR 2.28 H (0.87-1.13) Sodium (137-145) mmol/L Chloride (98-107) mmol/L BUN (9-20) mg/dL Glucose (75-100) mg/dL POC Glucose 145 H 137 H (70-105) 01/02/19 01/02/19 Range/Units 06:10 08:08 PT (12.2-14.9) Sec. INR (0.87-1.13) Sodium 136 L (137-145) mmol/L Chloride 96.5 L (98-107) mmol/L BUN 30 H (9-20) mg/dL Glucose 117 H (75-100) mg/dL POC Glucose 136 H (70-105) Medications & Allergies - Medications Allergies/Adverse Reactions: Allergies prochlorperazine [From Compazine] Allergy (Verified 04/14/18 12:13) Hives Home Medications: Home Medications Medication Instructions Recorded Confirmed Last Taken Type oxyCODONE [roxiCODONE] 10 mg PO Q6H PRN tablet 07/11/18 12/30/18 11/04/18 Rx Aspirin EC 81 mg PO DAILY #30 tablet 12/25/18 12/30/18 12/29/18 08:00 Rx AtorvaSTATin [Lipitor] 40 mg PO QHS #60 tablet 12/25/18 12/30/18 Unknown Rx Carvedilol [Coreg] 25 mg PO BID #60 tablet 12/25/18 12/30/18 12/29/18 08:00 Rx Torsemide [Demadex] 60 mg PO BID #120 tablet 12/25/18 12/30/18 12/29/18 08:00 Rx Warfarin [Coumadin] 10 mg PO DAILY@1700 #30 tablet 12/25/18 12/30/18 12/29/18 08:00 Rx Active Medications: Generic Name Dose Route Start Last Admin Trade Name Freq PRN Reason Stop Dose Admin Acetaminophen 650 mg 12/29/18 23:13 Tylenol PO Q4H PRN Pain MILD(1-3)/Fever >100.5/ROBERSON Aspirin 81 mg 12/30/18 10:00 01/02/19 09:48 Halfprin Ec PO 81 mg DAILY CODY Administration Atorvastatin Calcium 40 mg 12/30/18 22:00 01/01/19 22:22 Lipitor PO 40 mg QHS CODY Administration Bumetanide 1 mg 01/01/19 18:00 01/02/19 05:13 Bumex IV 1 mg BID@0600,1800 [facility] Administration Carvedilol 25 mg 12/30/18 10:00 01/02/19 09:48 Coreg PO 25 mg BID CODY Administration Dextrose 50 ml 12/29/18 23:11 D50w (25gm) Syringe IV PRN PRN Hypoglycemia Famotidine 20 mg 12/30/18 10:00 01/02/19 09:48 Pepcid PO 20 mg QAM CODY Administration Hydralazine HCl 10 mg 12/29/18 23:12 Apresoline IV Q4H PRN BP >160/100 Insulin Human Lispro 0 unit 12/30/18 07:30 01/02/19 08:44 Humalog SUB-Q Not Given ACHS [facility] Protocol Ondansetron HCl 4 mg 12/29/18 23:13 Zofran IV Q8H PRN Nausea And Vomiting Oxycodone HCl 10 mg 12/29/18 23:04 01/02/19 05:21 Roxicodone PO 10 mg Q6H PRN Administration Pain, Severe (7-10) Oxycodone/Acetaminophen 1 tab 12/29/18 23:13 01/02/19 09:48 Percocet 5/325 PO 1 tab Q6H PRN Administration Pain, Moderate (4-6) Sodium Chloride 10 ml 12/30/18 10:00 01/02/19 09:48 Sodium Chloride Flush Syringe 10 Ml IV 10 ml BID CODY Administration Sodium Chloride 10 ml 12/29/18 23:13 Sodium Chloride Flush Syringe 10 Ml IV PRN PRN LINE FLUSH Warfarin Sodium 10 mg 12/30/18 17:00 01/01/19 16:13 Coumadin PO 10 mg DAILY@1700 CODY Administration Protocol
[2019-01-02] MEDS: COUMADIN PO SCH (16:19)
[2019-01-03] MEDS: PERCOCET 5/325 PO PRN ×3 (00:36→21:08)
[2019-01-03] MEDS: ROXICODONE PO PRN ×3 (02:38→15:43)
[2019-01-03] MEDS: BUMEX IV SCH ×2 (05:38→18:07)
[2019-01-03 07:05] LABS: INR 2.7 (0.87-1.13)
[2019-01-03] MEDS: HumaLOG SUB-Q SCH ×4 (07:30→21:44)
[2019-01-03] MEDS: ZAROXOLYN PO SCH (09:58)
[2019-01-03] MEDS: PEPCID PO SCH (09:59)
[2019-01-03] MEDS: HALFPRIN EC PO SCH (09:59)
[2019-01-03] MEDS: COREG PO SCH ×2 (10:02→21:09)
[2019-01-03] MEDS: SODIUM CHLORIDE FLUSH SYRINGE 10 ML IV SCH ×2 (10:08→21:09)
--- NOTE | 2019-01-03 14:42 | Progress Note ---
Assessment and Plan Assessment and plan: 33-year-old morbidly obese -[place] male with history of chronic systolic heart failure, CAD, dilated nonischemic cardiomyopathy with ejection fraction 10-15%(Echo 02/28), status post AICD, right lower extremity DVT PE, lymph edema R>L, hypertension, diabetes, and chronic renal failure who presents to [facility] with complaints of worsening bilateral lower extremity edema, chest pain and sob. He was diagnosed with CHF exacerbation, started on Lasix and admitted. cardiology was consulted and he is being followed by cardiology. Was initially on Lasix iv, now on Bumex iv. Hopefully dc home tomorrow if ok with cardiology. Chest pain, Cardiology following Continue Aspirin, Coreg,Lipitor Hyperkalemia, now resolved REJI Monitor BMP on Bumex Acute on Chronic systolic heart failure. EF 10-15% Patient stated he ate too much salty food when he went visiting out of Town Also missed meds for 1 week Continue Bumex iv, Coreg NICM s/p AICD placement Hypertension. Monitor BP Diabetes mellitus type 2. Fingerstick qac and hs Chronic DVT lower ext On Coumadin INR therapeutic Morbid Obesity. Counseled on diet, exercise Full code status History Interval history: Bilateral leg swelling Chest pain, resolved Patient did not take meds for 1 week prior to admission Patient admits to eating salty food Hospitalist Physical - Physical exam Narrative exam: Gen: Not in acute distress, lying in bed, morbidly obese HEENT: Normocephalic, atraumatic Neck: supple, no JVD Heart: S1 and S2 reg, no murmurs, rubs or gallop Lungs: Clear, no crackles, no wheeze Abd: soft, non tender, non distended, normal BS Ext: Marked Bilat lower ext edema, no clubbing, no cyanosis, chronic lymphedema Neuro: Awake,alert, oriented x 3, moves all ext, non focal Psych:Normal mood - Constitutional Vitals: Temp Pulse Resp BP Pulse Ox 97.9 F 64 20 111/80 98 01/03/19 11:51 01/03/19 11:51 01/03/19 11:51 01/03/19 11:51 01/03/19 11:51 General appearance: Present: no acute distress Results - Labs CBC & Chem 7: 12/29/18 18:11 01/02/19 06:10 Labs: Laboratory Last Values WBC 5.0 K/mm3 (4.5-11.0) 12/29/18 18:11 RBC 4.79 M/mm3 (3.65-5.03) 12/29/18 18:11 Hgb 10.1 gm/dl (11.8-15.2) L 12/29/18 18:11 Hct 33.8 % (35.5-45.6) L 12/29/18 18:11 MCV 71 fl (84-94) L 12/29/18 18:11 MCH 21 pg (28-32) L 12/29/18 18:11 MCHC 30 % (32-34) L 12/29/18 18:11 RDW 23.5 % (13.2-15.2) H 12/29/18 18:11 Plt Count 213 K/mm3 (140-440) 12/29/18 18:11 Lymph % (Auto) 20.3 % (13.4-35.0) 12/29/18 18:11 [place] % (Auto) 11.5 % (0.0-7.3) H 12/29/18 18:11 Eos % (Auto) 0.5 % (0.0-4.3) 12/29/18 18:11 Baso % (Auto) 1.1 % (0.0-1.8) 12/29/18 18:11 Lymph # 1.0 K/mm3 (1.2-5.4) L 12/29/18 18:11 [place] # 0.6 K/mm3 (0.0-0.8) 12/29/18 18:11 Eos # 0.0 K/mm3 (0.0-0.4) 12/29/18 18:11 Baso # 0.1 K/mm3 (0.0-0.1) 12/29/18 18:11 Seg Neutrophils % 66.6 % (40.0-70.0) 12/29/18 18:11 Seg Neutrophils # 3.3 K/mm3 (1.8-7.7) 12/29/18 18:11 PT 28.2 Sec. (12.2-14.9) H 01/03/19 06:02 INR 2.70 (0.87-1.13) H 01/03/19 06:02 APTT 37.3 Sec. (24.2-36.6) H 12/29/18 18:11 Sodium 136 mmol/L (137-145) L 01/02/19 06:10 Potassium 4.9 mmol/L (3.6-5.0) 01/02/19 06:10 Chloride 96.5 mmol/L (98-107) L 01/02/19 06:10 Carbon Dioxide 28 mmol/L (22-30) 01/02/19 06:10 16 mmol/L 01/02/19 06:10 BUN 30 mg/dL (9-20) H 01/02/19 06:10 1.5 mg/dL (0.8-1.5) 01/02/19 06:10 Estimated GFR > 60 ml/min 01/02/19 06:10 20 % 01/02/19 06:10 Glucose 117 mg/dL (75-100) H 01/02/19 06:10 POC Glucose 102 (70-105) 01/03/19 11:44 Calcium 8.9 mg/dL (8.4-10.2) 01/02/19 06:10 1.70 mg/dL (0.1-1.2) H 12/30/18 07:28 0.5 mg/dL (0-0.2) H 12/29/18 23:18 1.2 mg/dL 12/29/18 23:18 AST 42 units/L (5-40) H 12/30/18 07:28 ALT 59 units/L (7-56) H 12/30/18 07:28 122 units/L (35-129) 12/30/18 07:28 0.049 ng/mL (0.00-0.029) H D 12/29/18 23:18 NT-Pro-B Natriuret Pep 2123 pg/mL (0-450) H 12/29/18 18:11 6.8 g/dL (6.3-8.2) 12/30/18 07:28 3.1 g/dL (3.9-5) L 12/30/18 07:28 0.8 % 12/30/18 07:28 Triglycerides TNR 12/29/18 18:11 Cholesterol TNR 12/29/18 18:11 TNR 12/29/18 18:11 TNR 12/29/18 18:11 TNR 12/29/18 18:11 Active Medications - Current Medications Current Medications: Generic Name Dose Route Start Last Admin Trade Name Freq PRN Reason Stop Dose Admin Acetaminophen 650 mg 12/29/18 23:13 Tylenol PO Q4H PRN Pain MILD(1-3)/Fever >100.5/ROBERSON Aspirin 81 mg 12/30/18 10:00 01/03/19 09:59 Halfprin Ec PO 81 mg DAILY CODY Administration Atorvastatin Calcium 40 mg 12/30/18 22:00 01/02/19 21:36 Lipitor PO 40 mg QHS CODY Administration Bumetanide 1 mg 01/01/19 18:00 01/03/19 05:38 Bumex IV Not Given BID@0600,1800 [facility] Carvedilol 25 mg 12/30/18 10:00 01/03/19 10:02 Coreg PO 25 mg BID CODY Administration Dextrose 50 ml 12/29/18 23:11 D50w (25gm) Syringe IV PRN PRN Hypoglycemia Famotidine 20 mg 12/30/18 10:00 01/03/19 09:59 Pepcid PO 20 mg QAM [facility] Administration Hydralazine HCl 10 mg 12/29/18 23:12 Apresoline IV Q4H PRN BP >160/100 Insulin Human Lispro 0 unit 12/30/18 07:30 01/03/19 11:30 Humalog SUB-Q Not Given ACHS [facility] Protocol Metolazone 2.5 mg 01/03/19 10:00 01/03/19 09:58 Zaroxolyn PO 2.5 mg QDAY CODY Administration Ondansetron HCl 4 mg 12/29/18 23:13 Zofran IV Q8H PRN Nausea And Vomiting Oxycodone HCl 10 mg 12/29/18 23:04 01/03/19 09:59 Roxicodone PO 10 mg Q6H PRN Administration Pain, Severe (7-10) Oxycodone/Acetaminophen 1 tab 12/29/18 23:13 01/03/19 08:12 Percocet 5/325 PO 1 tab Q6H PRN Administration Pain, Moderate (4-6) Sodium Chloride 10 ml 12/30/18 10:00 01/03/19 10:08 Sodium Chloride Flush Syringe 10 Ml IV 10 ml BID CODY Administration Sodium Chloride 10 ml 12/29/18 23:13 Sodium Chloride Flush Syringe 10 Ml IV PRN PRN LINE FLUSH Warfarin Sodium 7.5 mg 01/03/19 17:00 Coumadin PO 01/03/19 17:01 DAILY@1700 ONE Warfarin Sodium 10 mg 01/04/19 17:00 Coumadin PO DAILY@1700 [facility] Nutrition/Malnutrition Assess - Dietary Evaluation Nutrition/Malnutrition Findings: Nutrition Notes Start: 12/30/18 16:54 Freq: Status: Active Protocol: Document 12/30/18 16:54 RM (Rec: 12/30/18 16:55 RM [id number]) Nutrition Notes Need for Assessment generated from: MD Order Initial or Follow up Brief Note Current Diagnosis Coronary Artery Disease, Diabetes,Hypertension,Heart Failure Labs/Tests A1c 7.5 per Hx and physical Subjective/Other Information Consulted for DM diet education. Screened for Coumadin/Vit K diet education. Pt already famliar w/both diets. Nutrition Intervention Revisit per MD consult or patient Sign Off request:
[2019-01-03] MEDS ORDERED: COUMADIN PO ONE (17:00)
--- NOTE | 2019-01-03 17:10 | Progress Note ---
Assessment and Plan Patient's cardiac status is improving. Continue Bumex and Zaroxolyn. Continue other cardiac management. Strict I/O. Patient seen in conjunction with Dr. Domínguez, who agrees with assessment and plan. - Patient Problems (1) Acute on chronic systolic (congestive) heart failure Current Visit: Yes Status: Acute (2) Atypical chest pain Current Visit: Yes Status: Resolved (3) Leg edema Current Visit: Yes Status: Acute (4) ACS (acute coronary syndrome) Current Visit: No Status: Acute (5) REJI (acute kidney injury) Current Visit: No Status: Acute (6) AICD (automatic cardioverter/defibrillator) present Current Visit: No Status: Chronic (7) Deep vein thrombosis (DVT) of right lower extremity Current Visit: No Status: Chronic Qualifiers: Affected thrombotic vein of extremity: popliteal Chronicity: chronic Qualified Code(s): I82.531 - Chronic embolism and thrombosis of right popliteal vein (8) Diabetes mellitus Current Visit: No Status: Chronic Qualifiers: Diabetes mellitus type: type 2 (9) HTN (hypertension) Current Visit: No Status: Chronic Qualifiers: Hypertension type: essential hypertension Qualified Code(s): I10 - Ess ential (primary) hypertension (10) Lymphedema Current Visit: Yes Status: Chronic (11) Morbid obesity Current Visit: Yes Status: Chronic (12) NICM (nonischemic cardiomyopathy) Current Visit: Yes Status: Chronic Subjective Date of service: 01/03/19 Principal diagnosis: HF Interval history: Lying in bed in NAD. Reports that his swelling is improved and his UOP is improved on Bumex. UOP of 900 mL over past 24 hours. He is not currently on telemetry monitoring. Objective Last Vital Signs Temp 97.5 F L 01/03/19 16:36 Pulse 65 01/03/19 16:36 Resp 20 01/03/19 16:36 BP 115/80 01/03/19 16:36 Pulse Ox 100 01/03/19 16:36 - Physical Examination General: No Apparent Distress HEENT: Positive: PERRL, Normocephaly, Mucus Membranes Moist Neck: Positive: neck supple, trachea midline Cardiac: Positive: Reg Rate and Rhythm Lungs: Positive: clear to auscultation Neuro: Positive: Grossly Intact Abdomen: Positive: Other (Obese). Negative: Tender /Rectal: Other (Deferred) Skin: Positive: Clear. Negative: Rash Musculoskeletal: No Pain, Normal Range of Motion Extremities: Present: +2 Edema (RLE chronic lymphedema, LLE with 2+ edema) - Labs and Meds Coagulation 01/03/19 Range/Units 06:02 PT 28.2 H (12.2-14.9) Sec. INR 2.70 H (0.87-1.13) - Imaging and Cardiology EKG: report reviewed, image reviewed Echo: report reviewed (02/18/2018 at [facility] showed EF 10-15%, LV severely dilated, LA severely dilated, mod TR, grade 2 diastolic dysfunction, mod MR, mod reduced RV systolic function, RVSP 25.2mmHg. ) - EKG Sinus rhythms and dysrhythmias: sinus rhythm
[2019-01-04] MEDS: ROXICODONE PO PRN ×4 (02:13→21:59)
[2019-01-04] MEDS: PERCOCET 5/325 PO PRN ×3 (05:12→18:59)
[2019-01-04] MEDS: BUMEX IV SCH ×2 (05:13→17:22)
[2019-01-04 06:22] LABS: INR 3.11 (0.87-1.13)
[2019-01-04] MEDS: HALFPRIN EC PO SCH (09:03)
[2019-01-04] MEDS: HumaLOG SUB-Q SCH ×3 (09:03→17:23)
[2019-01-04] MEDS: COREG PO SCH (09:03)
[2019-01-04] MEDS: PEPCID PO SCH (09:03)
[2019-01-04] MEDS: ZAROXOLYN PO SCH (09:03)
[2019-01-04] MEDS: SODIUM CHLORIDE FLUSH SYRINGE 10 ML IV SCH ×2 (09:04→22:00)
--- NOTE | 2019-01-04 11:04 | Progress Note ---
Assessment and Plan Assessment: Acute on chronic HFrEF Dilated NICMP - EF 10-15% AICD in situ Atypical chest pain - ECG with no acute ischemic changes; currently resolved NSTEMI type II - Nicol trending downwards REJI / hyperkalemia Hyponatremia RLE DVT / subtherapeutic INR Frequent PVCs and NSVT LBBB HTN DM Morbid obesity Lymphedema Anemia Plan: BLE edema improving. Cont present cardiac management and f/u BMP in AM. Possible d/c as early as tomorrow. The patient has been seen in conjunction with Dr. Bowling who agrees with the assessment and plan of care. Subjective Date of service: 01/04/19 Principal diagnosis: HF Interval history: pt resting in bed, BLE edema improving. Objective Last Vital Signs Temp 97.8 F 01/04/19 04:51 Pulse 32 L 01/04/19 04:51 Resp 20 01/04/19 06:12 BP 129/73 01/04/19 04:51 Pulse Ox 94 01/04/19 04:51 - Physical Examination General: No Apparent Distress HEENT: Positive: PERRL, Normocephaly, Mucus Membranes Moist Neck: Positive: neck supple, trachea midline Cardiac: Positive: Reg Rate and Rhythm, S1/S2 Lungs: Positive: Decreased Breath Sounds Neuro: Positive: Grossly Intact Abdomen: Positive: Other (Obese). Negative: Tender /Rectal: Other (Deferred) Skin: Positive: Clear. Negative: Rash Musculoskeletal: No Pain, Normal Range of Motion Extremities: Present: +2 Edema (RLE chronic lymphedema, LLE with 2+ edema) - Labs and Meds Coagulation 01/04/19 Range/Units 05:49 PT 31.5 H (12.2-14.9) Sec. INR 3.11 H (0.87-1.13) - Imaging and Cardiology EKG: report reviewed, image reviewed Echo: report reviewed (02/18/2018 at [place] showed EF 10-15%, LV severely dilated, LA severely dilated, mod TR, grade 2 diastolic dysfunction, mod MR, mod reduced RV systolic function, RVSP 25.2mmHg. ) - EKG Sinus rhythms and dysrhythmias: sinus rhythm
--- NOTE | 2019-01-04 13:01 | Progress Note ---
Assessment and Plan - Patient Problems (1) Acute on chronic systolic (congestive) heart failure Current Visit: Yes Status: Acute Plan to address problem: Acute on chronic congestive heart failure. Ejection fraction 10-15%. Patient fairly well compensated. On beta blockers and diuretics to Bumex Zaroxolyn. Patient able to lie flat speak in full sentences without much difficulty. Patient has chronic lower extremity edema would not resolve on this visit. We'll need lymphedema clinic. (2) Leg edema Current Visit: Yes Status: Acute Plan to address problem: Right bilateral lower extremity leg edema. Continue supportive care, present management. Follow-up lymphedema clinic (3) Lymphedema Current Visit: Yes Status: Chronic (4) Morbid obesity Current Visit: Yes Status: Chronic Plan to address problem: Discussed diet modifications changes exercise if possible. (5) Atypical chest pain Current Visit: Yes Status: Resolved Plan to address problem: Atypical chest pain resolved no evidence of ischemia. (6) REJI (acute kidney injury) Current Visit: No Status: Acute Plan to address problem: Acute kidney injury secondary to prerenal azotemia resolved. Expect some with diuretics. History Interval history: Patient resting in bed no new concerns. Oxygenating well. Patient wants to stay until his lymphedema has completely resolved. Had a long conversation with patient that this is not possible. And it can safely be treated in the outpatient setting. Spoke with patient and cardiology anticipate discharge in the a.m. Hospitalist Physical - Constitutional Vitals: Temp Pulse Resp BP Pulse Ox 97.8 F 32 L 20 129/73 94 01/04/19 04:51 01/04/19 04:51 01/04/19 06:12 01/04/19 04:51 01/04/19 04:51 General appearance: Present: no acute distress - EENT Eyes: Present: PERRL, EOM intact ENT: hearing intact, clear oral mucosa, dentition normal - Neck Neck: Present: supple, normal ROM. Absent: enlarged thyroid, masses or JVD, ce rvical LAD, carotid bruits - Respiratory Respiratory: bilateral: diminished (poor inspiratory effort secondary to obesity.) - Cardiovascular Rhythm: regular - Extremities Extremities: no ischemia, normal temperature, normal color, Full ROM Extremity abnormal: edema, tenderness, other (edema right greater than left secondary to underlying DVT and marked lymphadenopathy.) Peripheral Pulses: within normal limits - Abdominal General gastrointestinal: soft, non-tender, non-distended, normal bowel sounds, other (morbidly obese), no distended, no rigid - Integumentary Integumentary: Present: clear, warm, dry - Psychiatric Psychiatric: appropriate mood/affect, intact judgment & insight, memory intact - Neurologic Neurologic: CNII-XII intact, focal deficits Results - Labs CBC & Chem 7: 12/29/18 18:11 01/02/19 06:10 Labs: Laboratory Last Values WBC 5.0 K/mm3 (4.5-11.0) 12/29/18 18:11 RBC 4.79 M/mm3 (3.65-5.03) 12/29/18 18:11 Hgb 10.1 gm/dl (11.8-15.2) L 12/29/18 18:11 Hct 33.8 % (35.5-45.6) L 12/29/18 18:11 MCV 71 fl (84-94) L 12/29/18 18:11 MCH 21 pg (28-32) L 12/29/18 18:11 MCHC 30 % (32-34) L 12/29/18 18:11 RDW 23.5 % (13.2-15.2) H 12/29/18 18:11 Plt Count 213 K/mm3 (140-440) 12/29/18 18:11 Lymph % (Auto) 20.3 % (13.4-35.0) 12/29/18 18:11 [place] % (Auto) 11.5 % (0.0-7.3) H 12/29/18 18:11 Eos % (Auto) 0.5 % (0.0-4.3) 12/29/18 18:11 Baso % (Auto) 1.1 % (0.0-1.8) 12/29/18 18:11 Lymph # 1.0 K/mm3 (1.2-5.4) L 12/29/18 18:11 [place] # 0.6 K/mm3 (0.0-0.8) 12/29/18 18:11 Eos # 0.0 K/mm3 (0.0-0.4) 12/29/18 18:11 Baso # 0.1 K/mm3 (0.0-0.1) 12/29/18 18:11 Seg Neutrophils % 66.6 % (40.0-70.0) 12/29/18 18:11 Seg Neutrophils # 3.3 K/mm3 (1.8-7.7) 12/29/18 18:11 PT 31.5 Sec. (12.2-14.9) H 01/04/19 05:49 INR 3.11 (0.87-1.13) H 01/04/19 05:49 APTT 37.3 Sec. (24.2-36.6) H 12/29/18 18:11 Sodium 136 mmol/L (137-145) L 01/02/19 06:10 Potassium 4.9 mmol/L (3.6-5.0) 01/02/19 06:10 Chloride 96.5 mmol/L (98-107) L 01/02/19 06:10 Carbon Dioxide 28 mmol/L (22-30) 01/02/19 06:10 16 mmol/L 01/02/19 06:10 BUN 30 mg/dL (9-20) H 01/02/19 06:10 1.5 mg/dL (0.8-1.5) 01/02/19 06:10 Estimated GFR > 60 ml/min 01/02/19 06:10 20 % 01/02/19 06:10 Glucose 117 mg/dL (75-100) H 01/02/19 06:10 POC Glucose 142 (70-105) H 01/04/19 12:02 Calcium 8.9 mg/dL (8.4-10.2) 01/02/19 06:10 1.70 mg/dL (0.1-1.2) H 12/30/18 07:28 0.5 mg/dL (0-0.2) H 12/29/18 23:18 1.2 mg/dL 12/29/18 23:18 AST 42 units/L (5-40) H 12/30/18 07:28 ALT 59 units/L (7-56) H 12/30/18 07:28 122 units/L (35-129) 12/30/18 07:28 0.049 ng/mL (0.00-0.029) H D 12/29/18 23:18 NT-Pro-B Natriuret Pep 2123 pg/mL (0-450) H 12/29/18 18:11 6.8 g/dL (6.3-8.2) 12/30/18 07:28 3.1 g/dL (3.9-5) L 12/30/18 07:28 0.8 % 12/30/18 07:28 Triglycerides TNR 12/29/18 18:11 Cholesterol TNR 12/29/18 18:11 TNR 12/29/18 18:11 TNR 12/29/18 18:11 TNR 12/29/18 18:11 Active Medications - Current Medications Current Medications: Generic Name Dose Route Start Last Admin Trade Name Freq PRN Reason Stop Dose Admin Acetaminophen 650 mg 12/29/18 23:13 Tylenol PO Q4H PRN Pain MILD(1-3)/Fever >100.5/ROBERSON Aspirin 81 mg 12/30/18 10:00 01/04/19 09:03 Halfprin Ec PO 81 mg DAILY C[facility] Administration Atorvastatin Calcium 40 mg 12/30/18 22:00 01/03/19 21:09 Lipitor PO 40 mg QHS [facility] Administration Bumetanide 1 mg 01/01/19 18:00 01/04/19 05:13 Bumex IV 1 mg BID@0600,1800 [facility] Administration Carvedilol 25 mg 12/30/18 10:00 01/04/19 09:03 Coreg PO 25 mg BID C[facility] Administration Dextrose 50 ml 12/29/18 23:11 D50w (25gm) Syringe IV PRN PRN Hypoglycemia Famotidine 20 mg 12/30/18 10:00 01/04/19 09:03 Pepcid PO 20 mg QAM [facility] Administration Hydralazine HCl 10 mg 12/29/18 23:12 Apresoline IV Q4H PRN BP >160/100 Insulin Human Lispro 0 unit 12/30/18 07:30 01/04/19 12:50 Humalog SUB-Q Not Given ACHS [facility] Protocol Metolazone 2.5 mg 01/03/19 10:00 01/04/19 09:03 Zaroxolyn PO 2.5 mg QDAY [facility] Administration Ondansetron HCl 4 mg 12/29/18 23:13 Zofran IV Q8H PRN Nausea And Vomiting Oxycodone HCl 10 mg 12/29/18 23:04 01/04/19 09:03 Roxicodone PO 10 mg Q6H PRN Administration Pain, Severe (7-10) Oxycodone/Acetaminophen 1 tab 12/29/18 23:13 01/04/19 12:08 Percocet 5/325 PO 1 tab Q6H PRN Administration Pain, Moderate (4-6) Sodium Chloride 10 ml 12/30/18 10:00 01/04/19 09:04 Sodium Chloride Flush Syringe 10 Ml IV 10 ml BID CODY Administration Sodium Chloride 10 ml 12/29/18 23:13 Sodium Chloride Flush Syringe 10 Ml IV PRN PRN LINE FLUSH Warfarin Sodium 2.5 mg 01/04/19 17:00 Coumadin PO DAILY@1700 [facility] Nutrition/Malnutrition Assess - Dietary Evaluation Nutrition/Malnutrition Findings: Nutrition Notes Start: 12/30/18 16:54 Freq: Status: Active Protocol: Document 12/30/18 16:54 RM (Rec: 12/30/18 16:55 RM [id number]) Nutrition Notes Need for Assessment generated from: MD Order Initial or Follow up Brief Note Current Diagnosis Coronary Artery Disease, Diabetes,Hypertension,Heart Failure Labs/Tests A1c 7.5 per Hx and physical Subjective/Other Information Consulted for DM diet education. Screened for Coumadin/Vit K diet education. Pt already famliar w/both diets. Nutrition Intervention Revisit per MD consult or patient Sign Off request:
[2019-01-04] MEDS ORDERED: COUMADIN PO SCH ×2 (17:00)
[2019-01-05] MEDS: PERCOCET 5/325 PO PRN ×2 (01:20→08:29)
[2019-01-05] MEDS: HumaLOG SUB-Q SCH ×3 (01:26→13:38)
[2019-01-05] MEDS: COREG PO SCH ×2 (01:29→10:18)
[2019-01-05] MEDS: BUMEX IV SCH (05:30)
[2019-01-05] MEDS: ROXICODONE PO PRN ×2 (05:38→11:35)
[2019-01-05] MEDS: ZAROXOLYN PO SCH (10:13)
[2019-01-05] MEDS: HALFPRIN EC PO SCH (10:13)
[2019-01-05] MEDS: PEPCID PO SCH (10:14)
[2019-01-05] MEDS: SODIUM CHLORIDE FLUSH SYRINGE 10 ML IV SCH (10:15)
[2019-01-05 10:19] VITALS: BP 127/80
--- NOTE | 2019-01-05 10:21 | Progress Note ---
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 Await BMP. Pending labwork is unremarkable, pt may discharge home from cardiology standpoint. Pending renal function permits, at discharge recomme PO bumex 1mg BID in addition to current dosage of zaroxolyn. Cont all other present cardiac management. Recommend pt follow up in our office with Dr. Domínguez within 3-5 days of hospital discharge ([phone]). Pt verbalizes understanding. The patient has been seen in conjunction with Dr. Bowling who agrees with the assessment and plan of care. Subjective Date of service: 01/05/19 Principal diagnosis: HF Interval history: pt resting in bed, BLE edema improving. Objective Last Vital Signs Temp 98.5 F 01/05/19 06:24 Pulse 57 L 01/05/19 06:24 Resp 96 H 01/05/19 08:34 BP 111/76 01/05/19 06:24 Pulse Ox 96 01/05/19 08:34 - Physical Examination General: No Apparent Distress HEENT: Positive: PERRL, Normocephaly, Mucus Membranes Moist Neck: Positive: neck supple, trachea midline Cardiac: Positive: Reg Rate and Rhythm, S1/S2 Lungs: Positive: Decreased Breath Sounds Neuro: Positive: Grossly Intact Abdomen: Positive: Other (Obese). Negative: Tender /Rectal: Other (Deferred) Skin: Positive: Clear. Negative: Rash Musculoskeletal: No Pain, Normal Range of Motion Extremities: Present: +2 Edema (RLE chronic lymphedema, LLE with 2+ edema) - Imaging and Cardiology EKG: report reviewed, image reviewed Echo: report reviewed (02/18/2018 at [place] showed EF 10-15%, LV severely dilated, LA severely dilated, mod TR, grade 2 diastolic dysfunction, mod MR, mod reduced RV systolic function, RVSP 25.2mmHg. ) - EKG Sinus rhythms and dysrhythmias: sinus rhythm
--- NOTE | 2019-01-05 10:21 | Discharge Summary ---
Providers - Providers Date of Admission: 12/30/18 14:31 Date of discharge: 01/05/19 Attending physician: CONRAD MEJIA 12/29/18 23:11 Consult to Dietitian/Nutrition [CONS] Routine Physician Instructions: Reason For Exam: Reason for Consult: Diet education Consult to Wound/ET Nurse [CONS] Routine Reason For Exam: lymphedema 12/29/18 23:12 Consult to Physician [CONS] Routine Comment: Consulting Provider: RICHI ALCALA Physician Instructions: Reason For Exam: chf Primary care physician: [facility] Hospitalization Reason for admission: acute on chronic heart failure with reduced EF Condition: Fair Hospital course: The pt is a 33 YO male with a past medical history significant for chronic systolic heart failure, dilated NICMP, AICD in situ, frequent PVCs and NSVT, HTN, DM, RLE DVT, anticoagulated with coumadin, morbid obesity, lymphedema who presented with c/o progressively worsening SOB, RAE, BLE edema and orthopnea for the past several days. He states that he went out of town to visit a friend and ate some meatloaf from [employer] which he believes was high in salt. A few days a fter that meal, his symptoms developed. He tried to take extra doses of torsemide but his symptoms did not improve. He denies any chest pain, palpitations, n/v, diaphoresis, dizziness or syncope. Pt underwent LHC and RHC at [place] on 10/24/2017 which showed angiographically normal coronary arteries, normal right-sided filling pressures with a mean RA pressure of 5 mmHg, mildly elevated pulmonary artery pressures with a mean PA pressure of 27 mmHg and PA pressure was 38/16mmHG, mildly elevated left-sided filling pressures with a mean PCWP of 18 mmHg with a directly measured LVEDP of 20 mmHg, normal cardiac output with a CO of 5.74 L/min with a cardiac index of 1.82 L/min/m2 using a the Albaro equation. Echo done in 02/18/2018 at [facility] showed EF 10-15%, LV severely dilated, LA severely dilated, mod TR, grade 2 diastolic dysfunction, mod MR, mod reduced RV systolic function, RVSP 25.2mmHg. The patient was admitted with diagnosis of acute on chronic HFrEF, atypical chest pain and NSTEMI type II. Patient received appropriate diuresis with IV Lasix twice a day which was later converted to IV bumex BID. The patient was seen by cardiology in consultation. Nicol trended downward and ECG with no acute ischemic changes. Patient clinically improved and felt to have received maximal hospital benefit discharge. Dedicated discharge time 32 minutes. Disposition: DC-01 TO HOME OR SELFCARE Time spent for discharge: 32 Core Measure Documentation - Palliative Care Palliative Care/ Comfort Measures: Not Applicable - Core Measures Any of the following diagnoses?: acute AL, heart failure - Acute AL Discharge Requirements Aspirin at discharge: Yes JOSH/ARB for LVSD if EF <40%: No Reason for no JOSH/ARB: Renal impairment Beta nilson at discharge: Yes Statin for LDL = or >100 mg/dl on DC: Yes - Heart Failure Discharge Requirements JOSH/ARB for LVSD if EF <40%: No Reason for no JOSH/ARB: Renal impairment Beta nilson at discharge: Yes Exam - Constitutional Vitals: Temp Pulse Resp BP Pulse Ox 98.5 F 57 L 96 H 111/76 96 01/05/19 06:24 01/05/19 06:24 01/05/19 08:34 01/05/19 06:24 01/05/19 08:34 General appearance: Present: no acute distress, well-nourished - EENT Eyes: Present: PERRL ENT: hearing intact, clear oral mucosa - Neck Neck: Present: supple, normal ROM - Respiratory Respiratory effort: normal Respiratory: bilateral: CTA - Cardiovascular Heart Sounds: Present: S1 & S2. Absent: rub, click - Extremities Extremities: pulses symmetrical, No edema Peripheral Pulses: within normal limits - Abdominal General gastrointestinal: Present: soft, non-tender, non-distended, normal bowel sounds Male genitourinary: Present: normal - Integumentary Integumentary: Present: clear, warm, dry - Musculoskeletal Musculoskeletal: gait normal, strength equal bilaterally - Psychiatric Psychiatric: appropriate mood/affect, intact judgment & insight - Neurologic Neurologic: CNII-XII intact, moves all extremities Plan Activity: advance as tolerated Weight Bearing Status: Weight Bear as Tolerated Diet: low fat, low cholesterol, low salt Follow up with: PRIMARY CARE, [Primary Care Provider] - 7 Days Forms: Warfarin Discharge Instruction Prescriptions: Aspirin EC 81 mg PO DAILY #30 tablet Carvedilol [Coreg] 25 mg PO BID #60 tablet Warfarin [Coumadin] 2.5 mg PO DAILY@1700 #30 tablet AtorvaSTATin [Lipitor] 40 mg PO QHS #60 tablet Famotidine [Pepcid] 20 mg PO QAM #30 tablet oxyCODONE [roxiCODONE] 10 mg PO Q6H PRN #8 tablet PRN Reason: Pain, Severe (7-10) metOLazone [Zaroxolyn] 2.5 mg PO QDAY #30 tablet
[2019-01-05 12:58] LABS: INR 2.82 (0.87-1.13)
[2019-01-05 13:04] LABS: Hematocrit 33.3 % (35.5-45.6); Hemoglobin 9.9 gm/dl (11.8-15.2)
[2019-01-05 13:14] LABS: BUN/Creatinine Ratio 23; Blood Urea Nitrogen 32 mg/dL (9-20); Calcium 9.1 mg/dL (8.4-10.2); Hemolysis Index 0
== END 2019-01-05 14:00 | disposition home or self-care (01) | DRG 280 ==
LOC: ED 17:38 → 3A 23:13 → OBSVTOIN 12-30 14:31
PROVIDERS: ADMIT Internal Medicine; ATTEND Hospitalist
DX: I21.A1 Myocardial infarction type 2 (principal); N17.0 Acute kidney failure with tubular necrosis; I50.43 Acute on chronic combined systolic (congestive) and diastolic (congestive) heart failure; I82.531 Chronic embolism and thrombosis of right popliteal vein; I42.0 Dilated cardiomyopathy; I47.1 Supraventricular tachycardia; Z68.45 Body mass index [BMI] 70 or greater, adult; E87.1 Hypo-osmolality and hyponatremia; E87.5 Hyperkalemia; I44.7 Left bundle-branch block, unspecified; I89.0 Lymphedema, not elsewhere classified; E66.01 Morbid (severe) obesity due to excess calories; I25.10 Atherosclerotic heart disease of native coronary artery without angina pectoris; D63.8 Anemia in other chronic diseases classified elsewhere; E11.65 Type 2 diabetes mellitus with hyperglycemia; I11.0 Hypertensive heart disease with heart failure; Z95.810 Presence of automatic (implantable) cardiac defibrillator; Z79.01 Long term (current) use of anticoagulants; Z88.8 Allergy status to other drugs, medicaments and biological substances; I25.2 Old myocardial infarction
CPT/HCPCS: 36415; 71045; 80048; 80053; 80061; 82247; 82248; 82962; 83880; 84484; 85014; 85018; 85025; 85610; 85730; 87116; 93005; 93010; 96374; 96375; 96376; 99285; G0378; A9270-GY; J1170; J1815; J1940; J2270

== ENCOUNTER 2019-04-08 11:01 | Observation (INO) | payer OTHER ==
[2019-04-08] MEDS ORDERED: ASPIRIN 325 MG TAB PO ONE (11:26)
--- NOTE | 2019-04-08 11:28 | Event Note ---
ED Screening Note Date of service: 04/08/19 Time: 11:23 ED Screening Note: This is a 33 y.o. M. that presents to the ER with SOB and chest pain. Patient states he was working out when symptoms started. Patient states he was walking in neighborhood and remember walking into his neighbor driveway to catch his breath. He can't remember what happened after that. PMH CHF, DVT, DM2, lymphadema, & HTN Patient is on coumadin. He didn't take medication for 7 days while out of town last week. This initial assessment/diagnostic orders/clinical plan/treatment(s) is/are subject to change based on patients health status, clinical progression and re- assessment by fellow clinical providers in the ED. Further treatment and workup at subsequent clinical providers discretion. Patient/guardian urged not to elope from the ED as their condition may be serious if not clinically assessed and managed. Initial orders include: Labs and CXR
--- NOTE | 2019-04-08 12:58 | XRay Report ---
CHEST 1 VIEW 04/08/2019 12:35 PM INDICATION / CLINICAL INFORMATION: Chest Pain. Shortness of breath for several days. Fainting. COMPARISON: 12/29/18 FINDINGS: SUPPORT DEVICES: None. HEART / MEDIASTINUM: Cardiac silhouette remains markedly enlarged but stable. Left AICD appears unchanged. LUNGS / PLEURA: No significant pulmonary or pleural abnormality. No pneumothorax. ADDITIONAL FINDINGS: No significant additional findings. IMPRESSION: 1. Stable cardiomegaly but no acute pulmonary or pleural findings. Signer Name: Gunner Cardenas MD Signed: 04/08/2019 12:53 PM Workstation Name: [id number]
[2019-04-08] MEDS ORDERED: ONDANSETRON 4 MG/2 ML INJ IV ONE (13:03)
[2019-04-08] MEDS ORDERED: fentaNYL 100 MCG/2 ML INJ IV ONE ×2 (13:03→15:15)
--- NOTE | 2019-04-08 13:10 | Emergency Department Report ---
HPI - General Chief Complaint: Chest Pain Time Seen by Provider: 04/08/19 11:23 - HPI HPI: Room 1 The patient is a 33-year-old male presenting with a chief complaint of chest pain and syncope. The patient states she's been short of breath for the past 2 days. The patient states today while walking somewhat developed excruciating chest pain describes as intense and throbbing in nature. The patient states he didn't loss consciousness and awakened in his neighbor's driveway. Patient states he has had pain in his right lower extremity since awakening in the driveway. The patient states chest pain continue became less intense in the car being transported to the hospital. Patient admits to diaphoresis with chest pain but denies nausea or vomiting. Patient currently gets his chest pain score of 4/10. Patient states she's never had a stress test and his last cardiac catheterization occur last year Location: [See above] Duration: [See above] Quality: [See above] Severity: [See above] Timing: [See above] Context: [See above] Modifying factors: [See above] Associated signs and symptoms: [see above] ED Past Medical Hx - Past Medical History Hx Hypertension: Yes Hx Heart Attack/AMI: Yes Hx Congestive Heart Failure: Yes Hx Diabetes: Yes Hx Deep Vein Thrombosis: Yes Additional medical history: R sided chest tube, -infection in lung. d efibrillator 10/2017. EJ 15%. 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 ) Additional Surgical History: lymphedema - Family History Family history: no significant - Social History Smoking Status: Never Smoker Substance Use Type: None (denies illicit drug use) - Medications Home Medications: Home Medications Medication Instructions Recorded Confirmed Last Taken Type Torsemide [Demadex] 60 mg PO BID #120 tablet 12/25/18 04/08/19 04/08/19 Rx Aspirin EC [Halfprin EC] 81 mg PO DAILY #30 tablet 01/05/19 04/08/19 04/08/19 Rx AtorvaSTATin [Lipitor] 40 mg PO QHS #60 tablet 01/05/19 04/08/19 04/07/19 Rx Warfarin [Coumadin] 2.5 mg PO DAILY@1700 #30 tablet 01/05/19 04/08/19 04/08/19 Rx oxyCODONE [roxiCODONE] 10 mg PO Q6H PRN #8 tablet 01/05/19 04/08/19 04/08/19 Rx Carvedilol [Coreg] 3.125 mg PO BID 04/08/19 04/08/19 04/08/19 History Cholecalciferol (Vitamin D3) 50,000 unit PO QWEEK 04/08/19 04/08/19 04/04/19 History [Vitamin D3 50,000UNIT CAP] Metformin HCl [metFORMIN] 1,000 mg PO BID 04/08/19 04/08/19 04/08/19 History ED Review of Systems ROS: Stated complaint: CHEST PAIN/LEG PAIN/WEAKNESS Other details as noted in HPI Constitutional: diaphoresis Eyes: denies: eye pain ENT: denies: throat pain Respiratory: shortness of breath Cardiovascular: chest pain Endocrine: no symptoms reported Gastrointestinal: denies: abdominal pain, nausea, vomiting Genitourinary: denies: dysuria Musculoskeletal: arthralgia Neurological: denies: headache Physical Exam - Physical Exam Vital Signs: Vital Signs 04/08/19 04/08/19 11:23 12:50 Temperature 98.5 F 98.7 F Pulse Rate 51 L 83 Respiratory 18 20 Rate Blood Pressure 121/84 Blood Pressure 134/67 [Right] O2 Sat by Pulse 98 99 Oximetry Physical Exam: GENERAL: The patient is well-developed well-nourished male lying on stretcher not appearing to be in acute distress. [] HEENT: Normocephalic. Atraumatic. Extraocular motions are intact. Patient has moist mucous membranes. NECK: Supple. Trachea midline CHEST/LUNGS: Clear to auscultation. There is no respiratory distress noted. HEART/CARDIOVASCULAR: Regular. There is no tachycardia. There is no gallop rub or murmur. ABDOMEN: Abdomen is soft, nontender. Patient has normal bowel sounds. There is no abdominal distention. SKIN: There is no rash. There is no edema. There is no diaphoresis. NEURO: The patient is awake, alert, and oriented. The patient is cooperative. The patient has normal speech MUSCULOSKELETAL: There is tenderness to palpation of the right foot and right tib-fib ED Course Vital Signs 04/08/19 04/08/19 11:23 12:50 Temperature 98.5 F 98.7 F Pulse Rate 51 L 83 Respiratory 18 20 Rate Blood Pressure 121/84 Blood Pressure 134/67 [Right] O2 Sat by Pulse 98 99 Oximetry ED Medical Decision Making - Lab Data Result diagrams: 04/08/19 14:19 04/08/19 14:19 Laboratory Tests 04/08/19 04/08/19 04/08/19 14:19 14:19 14:19 WBC 5.4 RBC 5.41 H Hgb 11.4 L Hct 39.0 MCV 72 L MCH 21 L MCHC 29 L RDW 24.4 H Plt Count 191 Lymph % (Auto) [employer] [place] % (Auto) [employer] Eos % (Auto) [employer] Baso % (Auto) [employer] Lymph # [employer] [place]ward # [employer] Eos # [employer] Baso # [employer] Seg Neutrophils % [employer] Seg Neutrophils # [employer] PT INR APTT D-Dimer Sodium 137 Potassium 4.4 Chloride 101.5 Carbon Dioxide 26 Anion Gap 14 BUN 31 H Creatinine 1.2 Estimated GFR > 60 BUN/Creatinine Ratio 26 Glucose 91 Calcium 9.2 Troponin T < 0.010 < 0.010 04/08/19 14:19 WBC RBC Hgb Hct MCV MCH MCHC RDW Plt Count Lymph % (Auto) Woodward % (Auto) Eos % (Auto) Baso % (Auto) Lymph # Woodward # Eos # Baso # Seg Neutrophils % Seg Neutrophils # PT 34.2 H INR 3.45 H APTT 52.1 H D-Dimer < 135.00 Sodium Potassium Chloride Carbon Dioxide Anion Gap BUN Creatinine Estimated GFR BUN/Creatinine Ratio Glucose Calcium Troponin T - EKG Data -: EKG Interpreted by Me EKG shows normal: sinus rhythm Rate: normal - EKG Data When compared to previous EKG there are: changes noted Interpretation: nonspecific ST-T wave luther (T-wave inversions in leads V5, V6, 1, 2, aVL), other (frequent PVCs) - Radiology Data Radiology results: report reviewed (chest x-ray, right tib-fib x-ray, right foot x-ray), image reviewed (chest x-ray, right tib-fib x-ray, right foot x-ray) interpreted by me: Chest x-ray-no focal infiltrates, no pneumothorax. Cardiomegaly Right tib-fib x-ray-no acute fracture [facility] [address] [place] [address] XRay Report Signed Patient: MIKIEANALIA HOOD MR#: [id number] : 1985 Acct:[id number] Age/Sex: 33 / M ADM Date: 04/08/19 Loc: ED Attendi rey Dr: Ordering Physician: JESSIE DELGADILLO Date of Service: 04/08/19 Procedure(s): XR chest 1V ap Accession Number(s): [id number] cc: JESSIE DELGADILLO Fluoro Time In Minutes: CHEST 1 VIEW 04/08/2019 12:35 PM INDICATION / CLINICAL INFORMATION: Chest Pain. Shortness of breath for several days. Fainting. COMPARISON: 12/29/18 FINDINGS: SUPPORT DEVICES: None. HEART / MEDIASTINUM: Cardiac silhouette remains markedly enlarged but stable. Left AICD appears unchanged. LUNGS / PLEURA: No significant pulmonary or pleural abnormality. No pneumothorax. ADDITIONAL FINDINGS: No significant additional findings. IMPRESSION: 1. Stable cardiomegaly but no acute pulmonary or pleural findings. Signer Name: Gunner Cardenas MD Signed: 04/08/2019 12:53 PM Workstation Name: [id number] Transcribed By: DT Dictated By: Vic Cardenas MD Electronically Authenticated By: Vic Cardenas MD Signed Date/Time: 04/08/19 1253 DD/ 1252 TD/TT: - Differential Diagnosis dysrhythmia, PE, ACS, syncope Critical care attestation.: If time is entered above; I have spent that time in minutes in the direct care of this critically ill patient, excluding procedure time. ED Disposition Clinical Impression: Chest pain, Syncope Disposition: OP ADMIT IP TO THIS HOSP Is pt being admited?: Yes Does the pt Need Aspirin: No Condition: Fair Instructions: Chest Pain (ED), Syncope (ED) Time of Disposition: 15:54 (hospitalist paged (Dr Hassan))
--- NOTE | 2019-04-08 14:01 | XRay Report ---
Right leg-4 views Right foot-2 views INDICATION: pain after syncopal episode. COMPARISON: None. 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 No acute abnormality identified. Mild pes planus with no acute osseou s abnormality identified. Signer Name: Eliseo Wing MD Signed: 04/08/2019 1:57 PM Workstation Name: [id number]
[2019-04-08 14:54] LABS: INR 3.45 (0.87-1.13); Mean Corpuscular HGB Conc 29 % (32-34); Mean Corpuscular Volume 72 fl (84-94); Partial Thromboplastin Time 52.1 Sec. (24.2-36.6); Platelet Count 191 K/mm3 (140-440); Red Blood Count 5.41 M/mm3 (3.65-5.03)
[2019-04-08 15:03] LABS: BUN/Creatinine Ratio 26; Blood Urea Nitrogen 31 mg/dL (9-20); Calcium 9.2 mg/dL (8.4-10.2); Hemolysis Index 5
[2019-04-08 15:04] LABS: Hemoglobin 11.4 gm/dl (11.8-15.2); Red Cell Distribution Width 24.4 % (13.2-15.2)
[2019-04-08] MEDS ORDERED: oxyCODONE /ACETAMINOPHEN 5-325MG TAB PO ONE (16:19)
[2019-04-08 17:39] LABS: Eosinophils % (Manual) 0 % (0.0-4.3); Total Cells Counted 100
[2019-04-08 17:40] LABS: Anisocytosis 2+; Hypochromasia 2+; Target Cells Few
[2019-04-08 17:41] LABS: Ovalocytes 1+; Platelet Estimate Consistent w Auto
[2019-04-08] MEDS: HYDROmorphone 1 MG/1 ML INJ IV PRN (21:55)
--- NOTE | 2019-04-09 00:29 | Event Note ---
Date: 04/08/19 See history and physical in the reports Chest pain rule out OK Severe coronary artery disease Moderate obesity History of defibrillator Lexiscan was not ordered because of the patient's weight
[2019-04-09] MEDS ORDERED: NON-FORMULARY EACH (Metformin Hcl [Metformin] 1,000 MG) PO SCH (00:30)
[2019-04-09] MEDS ORDERED: TORSEMIDE 60 MG PO SCH (00:30)
[2019-04-09] MEDS: carvediloL 3.125 MG TAB PO SCH ×2 (01:28→09:24)
--- NOTE | 2019-04-09 01:46 | History and Physical Report ---
CHIEF COMPLAINT: 1. Left-sided chest pain. 2. Passed out today. HISTORY OF PRESENT ILLNESS: A 33-year-old male with morbid obesity and has extensive coronary artery disease, comes in for left-sided chest pain of 2 days' duration, intermittent in nature. The patient apparently passed out in his neighbor's driveway today. The patient also has right lower extremity swelling. No shortness of breath. The patient is morbidly obese. Never had a cardiac stress, but had a cardiac catheterization last year. Chest pain is about 6 on a scale of 1-10. PAST MEDICAL HISTORY: Significant for hypertension, coronary artery disease, congestive heart failure, diabetes, deep vein thrombosis, right-sided chest tube, defibrillator 10/31/2017, ejection fraction of 15% and right lower extremity lymphedema. PAST SURGICAL HISTORY: Pacemaker and defibrillator. Lymphedema surgery. FAMILY HISTORY: Hypertension. SOCIAL HISTORY: Does not smoke. No alcohol, no recreational drugs. CURRENT MEDICATIONS: On the chart. REVIEW OF SYSTEMS: Significant for syncope episode x 1 today and chest pain for the last 2-3 days. Shortness of breath on exertion present. Otherwise, review of systems negative. PHYSICAL EXAMINATION: GENERAL: Morbidly obese male lying in bed comfortably. VITAL SIGNS: Temperature 97.9, pulse is 46, respiratory rate is ____, sats are 95%, blood pressure 141/98. HEENT: Unremarkable. Pupils equal and reactive. NECK: Supple, no lymphadenopathy, no thyromegaly. LUNGS: Clear to auscultation and percussion. Good air entry. CARDIOVASCULAR: S1, S2 heard. No gallop, no murmur, no rub. Apical impulse in left fifth intercostal space and midclavicular line. ABDOMEN: Soft and benign. No hepatosplenomegaly. No guarding, no rigidity. Hernial orifices are normal. EXTREMITIES: Good pedal pulses. No pedal edema. CENTRAL NERVOUS SYSTEM: Alert and oriented x 4, nonfocal exam. SKIN: Normal. LABORATORY DATA: Significant for H and H of 11.4 and 39.0. MCV, MCH, MCHC are slightly low. Platelets are normal. INR is 3.45. Electrolytes are normal. BUN is 31 and creatinine is 1.2. EKG shows sinus rhythm with multiple premature ventricular beats. Heart rate of 86. X-ray of the tibia fibula on the right side shows soft tissue swelling extending from the knee into the foot with tricompartmental degenerative joint disease in the knee and degenerative arthrosis of the ankle. Chest x-ray, no acute findings. Stable cardiomegaly, but no pulmonary or acute findings. Foot x-ray shows soft tissue swelling and degenerative joint disease in the ankle. ASSESSMENT AND PLAN: 1. Chest pain, rule out myocardial infarction, chest pain protocol. Serial troponins. Lexiscan was not ordered because of the patient's weight of 500 pounds. The table may not be able to take his weight. We will defer to Cardiology. 2. Congestive heart failure. Continue torsemide. 3. Hypertension. Continue Coreg. 4. Type 2 diabetes. Continue metformin. 5. Anticoagulation. Continue Coumadin. 6. Vitamin D deficiency. Continue vitamin D per schedule. Is due on Sundays. We will hold for the time being until Friday. 7. Deep venous thrombosis prophylaxis, Lovenox. This patient is on Coumadin. No need for Lovenox. Gastrointestinal prophylaxis initiated. JOB# [id number] ADELFO/ALEYDA VELIZ
[2019-04-09] MEDS: HYDROmorphone 1 MG/1 ML INJ IV PRN ×2 (02:18→06:30)
[2019-04-09] MEDS ORDERED: TORSEMIDE 10 MG TAB PO SCH (06:00)
[2019-04-09] MEDS: metFORMIN 500 MG TAB PO SCH ×2 (09:23→17:54)
[2019-04-09] MEDS: INSULIN LISPRO 100 UNIT/ML SUB-Q SCH ×4 (09:23→21:35)
[2019-04-09] MEDS: oxyCODONE 5 MG TAB PO PRN ×3 (09:24→21:37)
[2019-04-09] MEDS: ASPIRIN EC 81 MG TAB PO SCH (09:24)
[2019-04-09 09:35] LABS: INR 2.55 (0.87-1.13)
--- NOTE | 2019-04-09 11:15 | Consultation ---
History of Present Illness Consult date: 04/09/19 Requesting physician: СЕРГЕЙ KRAFT Consult reason: chest pain History of present illness: The pt is a 33 YO male with a past medical history significant for chronic systolic heart failure, dilated NICMP, AICD in situ ([employer]tr[employer]), frequent PVCs and NSVT, HTN, DM, RLE DVT, anticoagulated with coumadin, morbid obesity, lym phedema. He has been seen by our practice on prior hospitalizations and follows at [facility]. He presented with c/o syncope. He states he was walking for exercise in his neighborhood yesterday and was feeling well and then he next recalls waking up on the ground in his neighbor's driveway. He believes he passed out. When he awoke, he noted new onset chest pain which is aggravated by movement and deep inspiration. He is not sure if he received AICD shock. He also has some SOB and feels "full" of fluid. He denies any occurrence of palpitations, n/v, diaphoresis or dizziness. Pt underwent LHC and RHC at [place] on 10/24/2017 which showed angiographically normal coronary arteries, normal right-sided filling pressures with a mean RA pressure of 5 mmHg, mildly elevated pulmonary artery pressures with a mean PA pressure of 27 mmHg and PA pressure was 38/16mmHG, mildly elevated left-sided filling pressures with a mean PCWP of 18 mmHg with a directly measured LVEDP of 20 mmHg, normal cardiac output with a CO of 5.74 L/min with a cardiac index of 1.82 L/min/m2 using a the Albaro equation. Echo done 03/03/2019 showed EF 15-20%, LV severely dilated, grade 2 diastolic dysfunction, mild to mod TR, mild to mod MR, mod reduced RV systolic function, RVSP 57mmHg. Past History Past Medical History: other (as per HPI) Medications and Allergies Allergies Allergy/AdvReac Type Severity Reaction Status Date / Time prochlorperazine Allergy Hives Verified 04/14/18 12:13 [From Compazine] Home Medications Medication Instructions Recorded Confirmed Last Taken Type Torsemide [Demadex] 60 mg PO BID #120 tablet 12/25/18 04/08/19 04/08/19 Rx Aspirin EC [Halfprin EC] 81 mg PO DAILY #30 tablet 01/05/19 04/08/19 04/08/19 Rx AtorvaSTATin [Lipitor] 40 mg PO QHS #60 tablet 01/05/19 04/08/19 04/07/19 Rx Warfarin [Coumadin] 2.5 mg PO DAILY@1700 #30 tablet 01/05/19 04/08/19 04/08/19 Rx oxyCODONE [roxiCODONE] 10 mg PO Q6H PRN #8 tablet 01/05/19 04/08/19 04/08/19 Rx Carvedilol [Coreg] 3.125 mg PO BID 04/08/19 04/08/19 04/08/19 History Cholecalciferol (Vitamin D3) 50,000 unit PO QWEEK 04/08/19 04/08/19 04/04/19 History [Vitamin D3 50,000UNIT CAP] Metformin HCl [metFORMIN] 1,000 mg PO BID 04/08/19 04/08/19 04/08/19 History Active Meds: Active Medications Aspirin (Halfprin Ec) 81 mg PO DAILY [facility] Last Admin: 04/09/19 09:24 Dose: 81 mg Documented by: Atorvastatin Calcium (Lipitor) 40 mg PO QHS [facility] Carvedilol (Coreg) 3.125 mg PO BID [facility] Last Admin: 04/09/19 09:24 Dose: 3.125 mg Documented by: Insulin Human Lispro (Humalog) 0 unit SUB-Q ACHS [facility]; Protocol Last Admin: 04/09/19 09:23 Dose: Not Given Documented by: Metformin HCl (Glucophage) 1,000 mg PO BIDDIAB [facility] Last Admin: 04/09/19 09:23 Dose: 1,000 mg Documented by: Oxycodone HCl (Roxicodone) 10 mg PO Q6H PRN PRN Reason: Pain, Severe (7-10) Last Admin: 04/09/19 09:24 Dose: 10 mg Documented by: Torsemide (Demadex) 60 mg PO BID@0600,1800 [facility] Last Admin: 04/09/19 06:33 Dose: 60 mg Documented by: Warfarin Sodium (Coumadin) 2.5 mg PO DAILY@1700 [facility] Review of Systems Constitutional: no weight loss, no weight gain, no fever, no chills, no sweats Ears, nose, mouth and throat: no ear pain, no nose pain, no sinus pressure, no sinus pain Cardiovascular: chest pain, syncope, shortness of breath, dyspnea on exertion, high blood pressure, leg edema, no orthopnea, no palpitations, no rapid/irregular heart beat, no edema, no lightheadedness Respiratory: shortness of breath, dyspnea on exertion, no cough, no congestion, no wheezing, no pain on inspiration Gastrointestinal: no abdominal pain, no nausea, no vomiting, no diarrhea, no constipation Genitourinary Male: no dysuria, no hematuria, no flank pain, no discharge, no urinary frequency, no urinary hesitancy Musculoskeletal: no neck stiffness, no neck pain, no shooting arm pain, no arm numbness/tingling, no low back pain, no shooting leg pain Integumentary: no rash, no pruritis, no redness, no sores, no wounds Neurological: syncope, no head injury, no paralysis, no weakness, no parathesias, no numbness, no tingling, no seizures Psychiatric: no anxiety Endocrine: no cold intolerance, no heat intolerance Hematologic/Lymphatic: no easy bruising, no easy bleeding Allergic/Immunologic: no urticaria, no wheezing Physical Examination Vital Signs Temp Pulse Resp BP Pulse Ox 98.5 F 51 L 18 121/84 98 04/08/19 11:23 04/08/19 11:23 04/08/19 11:23 04/08/19 11:23 04/08/19 11:23 General appearance: no acute distress HEENT: Positive: PERRL, Normocephaly, Mucus Membranes Moist Neck: Positive: neck supple, trachea midline Cardiac: Positive: Reg Rate and Rhythm, S1/S2 Lungs: Positive: Decreased Breath Sounds Neuro: Positive: Grossly Intact Abdomen: Negative: Tender Skin: Negative: Rash Extremities: Present: edema (BLE lymphedema) Results 04/08/19 14:19 04/08/19 14:19 Coagulation 04/08/19 04/09/19 Range/Units 14:19 08:49 PT 34.2 H 27.0 H (12.2-14.9) Sec. INR 3.45 H 2.55 H (0.87-1.13) APTT 52.1 H (24.2-36.6) Sec. CBC 04/08/19 Range/Units 14:19 WBC 5.4 (4.5-11.0) K/mm3 RBC 5.41 H (3.65-5.03) M/mm3 Hgb 11.4 L (11.8-15.2) gm/dl Hct 39.0 (35.5-45.6) % Plt Count 191 (140-440) K/mm3 Lymph # Die Hardener Winkler # Die Hardener Eos # Die Hardener Baso # Die Hardener Comprehensive Metabolic Panel 04/08/19 Range/Units 14:19 Sodium 137 (137-145) mmol/L Potassium 4.4 (3.6-5.0) mmol/L Chloride 101.5 (98-107) mmol/L Carbon Dioxide 26 (22-30) mmol/L BUN 31 H (9-20) mg/dL Creatinine 1.2 (0.8-1.5) mg/dL Glucose 91 (75-100) mg/dL Calcium 9.2 (8.4-10.2) mg/dL - Imaging and Cardiology Echo: report reviewed (03/03/2019 showed EF 15-20%, LV severely dilated, grade 2 diastolic dysfunction, mild to mod TR, mild to mod MR, mod reduced RV [id number] function, RVSP 57mmHg. ) Cardiac cath: report reviewed ( LHC and RHC at [place] on 10/24/2017 which showed angiographically normal coronary arteries, normal right-sided filling pressures with a mean RA pressure of 5 mmHg, mildly elevated pulmonary artery pressures with a mean PA pressure of 27 mmHg and PA pressure was 38/16mmHG, mildly elevated left-sided filling pressures with a mean PCWP of 18 mmHg with a directly measured LVEDP of 20 mmHg, normal cardiac output with a CO of 5.74 L/min with a cardiac index of 1.82 L/min/m2 using a the Albaro equation.) EKG: report reviewed, image reviewed EKG interpretations - Telemetry EKG Rhythm: Sinus Rhythm - EKG Sinus rhythms and dysrhythmias: sinus rhythm Ventricular dysrhythmias: ventricular premature com Assessment and Plan Assessment: Syncope Acute on chronic HFrEF Dilated NICMP - EF 10-15% AICD in situ Atypical chest pain - AMI ruled out RLE DVT / supratherapeutic INR - INR 3.45 on admission Frequent PVCs and NSVT LBBB HTN DM Morbid obesity Lymphedema Plan: Echo done 03/03/2019 showed EF 15-20%, LV severely dilated, grade 2 diastolic dysfunction, mild to mod TR, mild to mod MR, mod reduced RV systolic function, RVSP 57mmHg. Initiate IV bumex BID. Resume home ENTRESTO, Toprol XL, aldactone. Cont coumadin with tx INR 2-3. Recommend head CT per primary to r/o acute process in setting of syncopal episode and chronic anticoagulation. Interrogate AICD today. Further recs to follow per hospital course. The patient has been seen in conjunction with Dr. Chowdary who agrees with the assessment and plan of care.
--- NOTE | 2019-04-09 15:39 | Event Note ---
Date: 04/09/19 AICD interrogation revealed normal device function, no device discharges, no acute events detected. Felicia MEYER NP / DR. PARNELL
[2019-04-09] MEDS ORDERED: WARFARIN 2.5 MG TAB PO SCH ×2 (17:00)
--- NOTE | 2019-04-09 17:01 | Progress Note ---
Assessment and Plan - Patient Problems (1) Chest pain Current Visit: Yes Status: Acute Plan to address problem: Chest pain initial workup negative. Ruling out acute coronary syndrome. Patient currently chest pain-free feels bad had syncopal episode. Blood pressure normal. Patient A GALA was interrogated today without any activity. Audiology following. (2) Syncope Current Visit: Yes Status: Acute Plan to address problem: Unclear etiology of syncope at this particular time. (3) Acute combined systolic (congestive) and diastolic (congestive) heart failure Current Visit: No Status: Acute Plan to address problem: Patient CHF appears to be fairly well compensated this time. Ejection fraction 15-20%. Patient has dilated in NIC (4) Obesity hypoventilation syndrome Current Visit: No Status: Acute Plan to address problem: We'll observe oxygenation closely. O2 when necessary. (5) Type 2 diabetes mellitus with diabetic chronic kidney disease Current Visit: No Status: Acute Plan to address problem: At present has fair control of diabetes we'll follow along. Current Accu-Chek 93-129. History Interval history: Patient original male with extensive past medical history including congestive heart failure, AICD, PVD, diabetes and morbid obesity presents this admission with a syncopal episode. Patient states he was walking and exercise had a syncopal episode woke up in neighbors yard and had chest pain when he woke up. She has a history of a recent left heart cath and right heart cath with normal coronaries. Echocardiogram showed ejection fraction of 15-20% on 03/03/2019. Patient states he feels weak at this time. otherwise improved. Hospitalist Physical - Constitutional Vitals: Temp Pulse Resp BP Pulse Ox 98.6 F 51 L 20 105/87 96 04/09/19 12:15 04/09/19 12:15 04/09/19 12:15 04/09/19 12:15 04/09/19 12:15 General appearance: Present: no acute distress - EENT Eyes: Present: PERRL, EOM intact ENT: hearing intact, clear oral mucosa, dentition normal, no oropharyngeal erythema, no poor dentition, no thrush - Neck Neck: Present: supple, normal ROM - Respiratory Respiratory effort: normal Respiratory: bilateral: diminished - Cardiovascular Rhythm: regular - Extremities Extremities: no ischemia, pulses intact, pulses symmetrical, No edema Peripheral Pulses: within normal limits - Abdominal General gastrointestinal: soft, non-tender, non-distended, normal bowel sounds, other (obese) - Psychiatric Psychiatric: intact judgment & insight - Neurologic Neurologic: CNII-XII intact, focal deficits, moves all extremities Results - Labs CBC & Chem 7: 04/08/19 14:19 04/08/19 14:19 Labs: Laboratory Last Values WBC 5.4 K/mm3 (4.5-11.0) 04/08/19 14:19 RBC 5.41 M/mm3 (3.65-5.03) H 04/08/19 14:19 Hgb 11.4 gm/dl (11.8-15.2) L 04/08/19 14:19 Hct 39.0 % (35.5-45.6) 04/08/19 14:19 MCV 72 fl (84-94) L 04/08/19 14:19 MCH 21 pg (28-32) L 04/08/19 14:19 MCHC 29 % (32-34) L 04/08/19 14:19 RDW 24.4 % (13.2-15.2) H 04/08/19 14:19 Plt Count 191 K/mm3 (140-440) 04/08/19 14:19 Lymph % (Auto) Security Site Supervisor 04/08/19 14:19 [place] % (Auto) Security Site Supervisor 04/08/19 14:19 Eos % (Auto) Security Site Supervisor 04/08/19 14:19 Baso % (Auto) Security Site Supervisor 04/08/19 14:19 Lymph # Security Site Supervisor 04/08/19 14:19 [place] # Security Site Supervisor 04/08/19 14:19 Eos # Security Site Supervisor 04/08/19 14:19 Baso # Security Site Supervisor 04/08/19 14:19 Add Manual Diff Complete 04/08/19 14:19 Total Counted 100 04/08/19 14:19 Seg Neutrophils % Security Site Supervisor 04/08/19 14:19 Seg Neuts % (Manual) 55.0 % (40.0-70.0) 04/08/19 14:19 0 % 04/08/19 14:19 27.0 % (13.4-35.0) 04/08/19 14:19 Reactive Lymphs % (Man) 0 % 04/08/19 14:19 16.0 % (0.0-7.3) H 04/08/19 14:19 0 % (0.0-4.3) 04/08/19 14:19 2.0 % (0.0-1.8) H 04/08/19 14:19 0 % 04/08/19 14:19 0 % 04/08/19 14:19 0 % 04/08/19 14:19 0 % 04/08/19 14:19 Nucleated RBC % 1.0 % (0.0-0.9) H 04/08/19 14:19 Seg Neutrophils # Security Site Supervisor 04/08/19 14:19 Seg Neutrophils # Man 3.0 K/mm3 (1.8-7.7) 04/08/19 14:19 Band Neutrophils # 0.0 K/mm3 04/08/19 14:19 1.5 K/mm3 (1.2-5.4) 04/08/19 14:19 Abs React Lymphs (Man) 0.0 K/mm3 04/08/19 14:19 0.9 K/mm3 (0.0-0.8) H 04/08/19 14:19 0.0 K/mm3 (0.0-0.4) 04/08/19 14:19 0.1 K/mm3 (0.0-0.1) 04/08/19 14:19 0.0 K/mm3 04/08/19 14:19 0.0 K/mm3 04/08/19 14:19 0.0 K/mm3 04/08/19 14:19 Blast Cells # 0.0 K/mm3 04/08/19 14:19 WBC Morphology Not Reportable 04/08/19 14:19 Hypersegmented Neuts Not Reportable 04/08/19 14:19 Hyposegmented Neuts Not Reportable 04/08/19 14:19 Hypogranular Neuts Not Reportable 04/08/19 14:19 Not Reportable 04/08/19 14:19 Not Reportable 04/08/19 14:19 Not Reportable 04/08/19 14:19 Not Reportable 04/08/19 14:19 Not Reportable 04/08/19 14:19 Not Reportable 04/08/19 14:19 Consistent w auto 04/08/19 14:19 Not Reportable 04/08/19 14:19 Plt Clumps, EDTA Not Reportable 04/08/19 14:19 Not Reportable 04/08/19 14:19 Not Reportable 04/08/19 14:19 Not Reportable 04/08/19 14:19 Plt Morphology Comment Not Reportable 04/08/19 14:19 RBC Morphology Not Reportable 04/08/19 14:19 Dimorphic RBCs Not Reportable 04/08/19 14:19 Not Reportable 04/08/19 14:19 2+ 04/08/19 14:19 Not Reportable 04/08/19 14:19 2+ 04/08/19 14:19 1+ 04/08/19 14:19 Not Reportable 04/08/19 14:19 Not Reportable 04/08/19 14:19 Not Reportable 04/08/19 14:19 Not Reportable 04/08/19 14:19 Few 04/08/19 14:19 Not Reportable 04/08/19 14:19 1+ 04/08/19 14:19 Not Reportable 04/08/19 14:19 Not Reportable 04/08/19 14:19 Not Reportable 04/08/19 14:19 Not Reportable 04/08/19 14:19 Not Reportable 04/08/19 14:19 Not Reportable 04/08/19 14:19 Not Reportable 04/08/19 14:19 Acanthocytes (Spur) Not Reportable 04/08/19 14:19 Rouleaux Not Reportable 04/08/19 14:19 Not Reportable 04/08/19 14:19 Not Reportable 04/08/19 14:19 Not Reportable 04/08/19 14:19 Not Reportable 04/08/19 14:19 Hem Pathologist Commnt No 04/08/19 14:19 PT 27.0 Sec. (12.2-14.9) H 04/09/19 08:49 INR 2.55 (0.87-1.13) H 04/09/19 08:49 APTT 52.1 Sec. (24.2-36.6) H 04/08/19 14:19 < 135.00 ng/mlDDU (0-234) 04/08/19 14:19 Sodium 137 mmol/L (137-145) 04/08/19 14:19 Potassium 4.4 mmol/L (3.6-5.0) 04/08/19 14:19 Chloride 101.5 mmol/L (98-107) 04/08/19 14:19 Carbon Dioxide 26 mmol/L (22-30) 04/08/19 14:19 14 mmol/L 04/08/19 14:19 BUN 31 mg/dL (9-20) H 04/08/19 14:19 1.2 mg/dL (0.8-1.5) 04/08/19 14:19 Estimated GFR > 60 ml/min 04/08/19 14:19 26 % 04/08/19 14:19 Glucose 91 mg/dL (75-100) 04/08/19 14:19 POC Glucose 99 (70-105) 04/09/19 12:20 Calcium 9.2 mg/dL (8.4-10.2) 04/08/19 14:19 0.013 ng/mL (0.00-0.029) 04/09/19 06:03 - Imaging and Cardiology Chest x-ray: image reviewed Active Medications - Current Medications Current Medications: Generic Name Dose Route Start Last Admin Trade Name Freq PRN Reason Stop Dose Admin Aspirin 81 mg 04/09/19 10:00 04/09/19 09:24 Halfprin Ec PO 81 mg DAILY [facility] Administration Atorvastatin Calcium 40 mg 04/09/19 22:00 Lipitor PO QHS [facility] Bumetanide 1 mg 04/09/19 18:00 Bumex IV BID@0600,1800 [facility] Insulin Human Lispro 0 unit 04/09/19 07:30 04/09/19 13:27 [facility]Q [facility] Protocol Metformin HCl 1,000 mg 04/09/19 08:00 04/09/19 09:23 Glucophage PO 1,000 mg BIDDIAB [facility] Administration Metoprolol Succinate 50 mg 04/10/19 10:00 Toprol Xl PO QDAY [facility] Oxycodone HCl 10 mg 04/09/19 00:22 04/09/19 15:16 Roxicodone PO 10 mg Q6H PRN Administration Pain, Severe (7-10) Spironolactone 25 mg 04/10/19 10:00 Aldactone PO QDAY [facility] Warfarin Sodium 2.5 mg 04/09/19 17:00 Coumadin PO DAILY@1700 [facility]
[2019-04-09] MEDS: BUMETANIDE 1 MG/4 ML INJ IV SCH (17:53)
[2019-04-09] MEDS: SACUBITRIL/VALSARTAN 49-51 MG TAB PO SCH (21:37)
[2019-04-10] MEDS: oxyCODONE 5 MG TAB PO PRN ×4 (04:25→22:03)
[2019-04-10] MEDS: BUMETANIDE 1 MG/4 ML INJ IV SCH ×2 (05:50→17:11)
[2019-04-10 07:22] LABS: INR 2.08 (0.87-1.13)
[2019-04-10 07:25] LABS: BUN/Creatinine Ratio 22; Blood Urea Nitrogen 29 mg/dL (9-20); Calcium 8.8 mg/dL (8.4-10.2); Hemolysis Index 55
[2019-04-10] MEDS: INSULIN LISPRO 100 UNIT/ML SUB-Q SCH ×4 (08:56→22:03)
[2019-04-10] MEDS: ASPIRIN EC 81 MG TAB PO SCH (09:59)
[2019-04-10] MEDS: metFORMIN 500 MG TAB PO SCH ×2 (09:59→17:09)
[2019-04-10] MEDS: SACUBITRIL/VALSARTAN 49-51 MG TAB PO SCH ×2 (09:59→22:02)
[2019-04-10] MEDS: SPIRONOLACTONE 25 MG TAB PO SCH (10:03)
[2019-04-10] MEDS: METOPROLOL SUCCINATE XL 50 MG TAB PO SCH (10:05)
--- NOTE | 2019-04-10 11:18 | Progress Note ---
Assessment and Plan The pt is a 33 YO male with a past medical history significant for chronic systolic heart failure, dilated NICMP, AICD in situ ([employer]tr[employer]), frequent PVCs and NSVT, HTN, DM, RLE DVT, anticoagulated with coumadin, morbid obesity, lymphedema. Patient still complains about dizziness but no further syncope. No significant chest pain. Dyspnea is better. Continue current management. Case discussed with Dr. Foreman. Rhythm strips are reviewed. Patient has sinus rhythm with first-degree AV block and frequent PVCs and short run of ventricular tachycardiasustained complex arrhythmias were noted. - Patient Problems (1) Acute combined systolic (congestive) and diastolic (congestive) heart failure Current Visit: No Status: Acute (2) Acute on chronic renal insufficiency Current Visit: No Status: Acute (3) Acute on chronic systolic (congestive) heart failure Current Visit: No Status: Acute (4) Bilateral lower extremity edema Current Visit: No Status: Acute (5) Obesity hypoventilation syndrome Current Visit: No Status: Acute (6) Ventricular tachycardia Current Visit: No Status: Acute (7) AICD (automatic cardioverter/defibrillator) present Current Visit: No Status: Chronic (8) Diabetes mellitus Current Visit: No Status: Chronic Qualifiers: Diabetes mellitus type: type 2 (9) HFrEF (heart failure with reduced ejection fraction) Current Visit: No Status: Chronic Qualifiers: Heart failure chronicity: acute on chronic Qualified Code(s): I50.23 - Acute on chronic systolic (congestive) heart failure (10) HTN (hypertension) Current Visit: No Status: Chronic Qualifiers: Hypertension type: essential hypertension Qualified Code(s): I10 - Essential (primary) hypertension (11) Lymphedema Current Visit: No Status: Chronic (12) Morbid obesity Current Visit: No Status: Chronic (13) NICM (nonischemic cardiomyopathy) Current Visit: No Status: Chronic Subjective Date of service: 04/10/19 Interval history: Patient is comfortable today. Overall breathing is better. Patient denies any chest pain. He complains about dizziness periodically. Objective Vital Signs Temp Pulse Resp BP BP Pulse Ox 04/10/19 10:05 82 117/60 04/10/19 10:03 82 117/60 04/10/19 08:47 98.2 F 41 L 20 151/78 98 04/10/19 04:25 18 04/10/19 04:09 97.8 F 04/10/19 04:07 80 20 118/54 96 04/09/19 23:58 98.0 F 55 L 20 98/50 99 04/09/19 21:37 18 04/09/19 19:36 97.7 F 04/09/19 19:31 53 L 20 107/60 94 04/09/19 17:00 98.1 F 45 L 18 100/77 94 04/09/19 12:15 98.6 F 51 L 20 105/87 96 - Physical Examination General: Other (morbidly obese gentleman in no acute distress on oxygen) HEENT: Positive: PERRL, Normocephaly, Mucus Membranes Moist Neck: Positive: neck supple, trachea midline Cardiac: Positive: Reg Rate and Rhythm Lungs: Positive: Decreased Breath Sounds (both bases.) Neuro: Positive: Grossly Intact Abdomen: Positive: Soft. Negative: Tender Skin: Negative: Rash Extremities: Present: edema (BLE lymphedema) - Labs and Meds Coagulation 04/10/19 Range/Units 06:50 PT 23.0 H (12.2-14.9) Sec. INR 2.08 H (0.87-1.13) Comprehensive Metabolic Panel 04/10/19 Range/Units 06:50 Sodium 137 (137-145) mmol/L Potassium 4.8 (3.6-5.0) mmol/L Chloride 97.3 L (98-107) mmol/L Carbon Dioxide 27 (22-30) mmol/L BUN 29 H (9-20) mg/dL Creatinine 1.3 (0.8-1.5) mg/dL Glucose 91 (75-100) mg/dL Calcium 8.8 (8.4-10.2) mg/dL - Imaging and Cardiology EKG: report reviewed, image reviewed Echo: report reviewed (03/03/2019 showed EF 15-20%, LV severely dilated, grade 2 diastolic dysfunction, mild to mod TR, mild to mod MR, mod reduced RV [id number] function, RVSP 57mmHg. ) Cardiac cath: report reviewed ( C and RHC at [place] on 10/24/2017 which showed angiographically normal coronary arteries, normal right-sided filling pressures with a mean RA pressure of 5 mmHg, mildly elevated pulmonary artery pressures with a mean PA pressure of 27 mmHg and PA pressure was 38/16mmHG, mildly elevated left-sided filling pressures with a mean PCWP of 18 mmHg with a directly measured LVEDP of 20 mmHg, normal cardiac output with a CO of 5.74 L/min with a cardiac index of 1.82 L/min/m2 using a the Albaro equation.) - EKG Sinus rhythms and dysrhythmias: sinus rhythm Ventricular dysrhythmias: ventricular premature com
--- NOTE | 2019-04-10 12:12 | Progress Note ---
Assessment and Plan - Patient Problems (1) Chest pain Current Visit: Yes Status: Acute Plan to address problem: Patient now remains chest pain-free. Cardiac workup negative. Cardiology following. (2) Syncope Current Visit: Yes Status: Acute Plan to address problem: Unclear etiology of syncope at this particular time. Patient cannot get CT scan at this particular time. Weight greater than 550. (3) Acute combined systolic (congestive) and diastolic (congestive) heart failure Current Visit: No Status: Acute Plan to address problem: Patient CHF appears to be fairly well compensated this time. Ejection fraction 15-20%. Patient has dilated in NICMP we'll plan on discharge a.m. (4) Obesity hypoventilation syndrome Current Visit: No Status: Acute Plan to address problem: We'll observe oxygenation closely. O2 when necessary. (5) Type 2 diabetes mellitus with diabetic chronic kidney disease Current Visit: No Status: Acute Plan to address problem: At present has fair control of diabetes we'll follow along. Current Accu-Chek 93-129. History Interval history: Should this a.m. states he stood up and immediately had to lay back down because he felt dizzy. This happened at the time he was given Lasix. No other concerns or distress at this time. Hospital course was unremarkable p.m. Patient did appear to have runs of PVCs. Hospitalist Physical - Constitutional Vitals: Temp Pulse Resp BP Pulse Ox 98.2 F 82 20 117/60 98 04/10/19 08:47 04/10/19 10:05 04/10/19 08:47 04/10/19 10:05 04/10/19 08:47 General appearance: Present: no acute distress - EENT Eyes: Present: PERRL, EOM intact ENT: hearing intact, clear oral mucosa, dentition normal - Neck Neck: Present: supple, normal ROM - Respiratory Respiratory: bilateral: rhonchi - Cardiovascular Rhythm: regular - Extremities Extremities: no ischemia, pulses symmetrical, Full ROM Extremity abnormal: edema, pulses diminished Peripheral Pulses: within normal limits - Abdominal General gastrointestinal: soft, non-tender, non-distended, normal bowel sounds, other (obese), no hepatomegaly, no splenomegaly - Integumentary Integumentary: Present: clear, warm, dry - Psychiatric Psychiatric: appropriate mood/affect, intact judgment & insight, memory intact - Neurologic Neurologic: CNII-XII intact, moves all extremities Results - Labs CBC & Chem 7: 04/08/19 14:19 04/10/19 06:50 Labs: Laboratory Last Values WBC 5.4 K/mm3 (4.5-11.0) 04/08/19 14:19 RBC 5.41 M/mm3 (3.65-5.03) H 04/08/19 14:19 Hgb 11.4 gm/dl (11.8-15.2) L 04/08/19 14:19 Hct 39.0 % (35.5-45.6) 04/08/19 14:19 MCV 72 fl (84-94) L 04/08/19 14:19 MCH 21 pg (28-32) L 04/08/19 14:19 MCHC 29 % (32-34) L 04/08/19 14:19 RDW 24.4 % (13.2-15.2) H 04/08/19 14:19 Plt Count 191 K/mm3 (140-440) 04/08/19 14:19 Lymph % (Auto) Technical Assoc 04/08/19 14:19 Emanuel % (Auto) Technical Assoc 04/08/19 14:19 Eos % (Auto) Technical Assoc 04/08/19 14:19 Baso % (Auto) Technical Assoc 04/08/19 14:19 Lymph # Technical Assoc 04/08/19 14:19 Emanuel # Technical Assoc 04/08/19 14:19 Eos # Technical Assoc 04/08/19 14:19 Baso # Technical Assoc 04/08/19 14:19 Add Manual Diff Complete 04/08/19 14:19 Total Counted 100 04/08/19 14:19 Seg Neutrophils % Technical Assoc 04/08/19 14:19 Seg Neuts % (Manual) 55.0 % (40.0-70.0) 04/08/19 14:19 0 % 04/08/19 14:19 27.0 % (13.4-35.0) 04/08/19 14:19 Reactive Lymphs % (Man) 0 % 04/08/19 14:19 16.0 % (0.0-7.3) H 04/08/19 14:19 0 % (0.0-4.3) 04/08/19 14:19 2.0 % (0.0-1.8) H 04/08/19 14:19 0 % 04/08/19 14:19 0 % 04/08/19 14:19 0 % 04/08/19 14:19 0 % 04/08/19 14:19 Nucleated RBC % 1.0 % (0.0-0.9) H 04/08/19 14:19 Seg Neutrophils # Technical Assoc 04/08/19 14:19 Seg Neutrophils # Man 3.0 K/mm3 (1.8-7.7) 04/08/19 14:19 Band Neutrophils # 0.0 K/mm3 04/08/19 14:19 1.5 K/mm3 (1.2-5.4) 04/08/19 14:19 Abs React Lymphs (Man) 0.0 K/mm3 04/08/19 14:19 0.9 K/mm3 (0.0-0.8) H 04/08/19 14:19 0.0 K/mm3 (0.0-0.4) 04/08/19 14:19 0.1 K/mm3 (0.0-0.1) 04/08/19 14:19 0.0 K/mm3 04/08/19 14:19 0.0 K/mm3 04/08/19 14:19 0.0 K/mm3 04/08/19 14:19 Blast Cells # 0.0 K/mm3 04/08/19 14:19 WBC Morphology Not Reportable 04/08/19 14:19 Hypersegmented Neuts Not Reportable 04/08/19 14:19 Hyposegmented Neuts Not Reportable 04/08/19 14:19 Hypogranular Neuts Not Reportable 04/08/19 14:19 Not Reportable 04/08/19 14:19 Not Reportable 04/08/19 14:19 Not Reportable 04/08/19 14:19 Not Reportable 04/08/19 14:19 Not Reportable 04/08/19 14:19 Not Reportable 04/08/19 14:19 Consistent w auto 04/08/19 14:19 Not Reportable 04/08/19 14:19 Plt Clumps, EDTA Not Reportable 04/08/19 14:19 Not Reportable 04/08/19 14:19 Not Reportable 04/08/19 14:19 Not Reportable 04/08/19 14:19 Plt Morphology Comment Not Reportable 04/08/19 14:19 RBC Morphology Not Reportable 04/08/19 14:19 Dimorphic RBCs Not Reportable 04/08/19 14:19 Not Reportable 04/08/19 14:19 2+ 04/08/19 14:19 Not Reportable 04/08/19 14:19 2+ 04/08/19 14:19 1+ 04/08/19 14:19 Not Reportable 04/08/19 14:19 Not Reportable 04/08/19 14:19 Not Reportable 04/08/19 14:19 Not Reportable 04/08/19 14:19 Few 04/08/19 14:19 Not Reportable 04/08/19 14:19 1+ 04/08/19 14:19 Not Reportable 04/08/19 14:19 Not Reportable 04/08/19 14:19 Not Reportable 04/08/19 14:19 Not Reportable 04/08/19 14:19 Not Reportable 04/08/19 14:19 Not Reportable 04/08/19 14:19 Not Reportable 04/08/19 14:19 Acanthocytes (Spur) Not Reportable 04/08/19 14:19 Rouleaux Not Reportable 04/08/19 14:19 Not Reportable 04/08/19 14:19 Not Reportable 04/08/19 14:19 Not Reportable 04/08/19 14:19 Not Reportable 04/08/19 14:19 Hem Pathologist Commnt No 04/08/19 14:19 PT 23.0 Sec. (12.2-14.9) H 04/10/19 06:50 INR 2.08 (0.87-1.13) H 04/10/19 06:50 APTT 52.1 Sec. (24.2-36.6) H 04/08/19 14:19 < 135.00 ng/mlDDU (0-234) 04/08/19 14:19 Sodium 137 mmol/L (137-145) 04/10/19 06:50 Potassium 4.8 mmol/L (3.6-5.0) 04/10/19 06:50 Chloride 97.3 mmol/L (98-107) L 04/10/19 06:50 Carbon Dioxide 27 mmol/L (22-30) 04/10/19 06:50 18 mmol/L 04/10/19 06:50 BUN 29 mg/dL (9-20) H 04/10/19 06:50 1.3 mg/dL (0.8-1.5) 04/10/19 06:50 Estimated GFR > 60 ml/min 04/10/19 06:50 22 % 04/10/19 06:50 Glucose 91 mg/dL (75-100) 04/10/19 06:50 POC Glucose 109 (70-105) H 04/09/19 21:21 Calcium 8.8 mg/dL (8.4-10.2) 04/10/19 06:50 0.013 ng/mL (0.00-0.029) 04/09/19 06:03 Active Medications - Current Medications Current Medications: Generic Name Dose Route Start Last Admin Trade Name Freq PRN Reason Stop Dose Admin Aspirin 81 mg 04/09/19 10:00 04/10/19 09:59 Halfprin Ec PO 81 mg DAILY CODY Administration Atorvastatin Calcium 40 mg 04/09/19 22:00 04/09/19 21:37 Lipitor PO 40 mg QHS CODY Administration Bumetanide 1 mg 04/09/19 18:00 04/10/19 05:50 Bumex IV 1 mg BID@0600,1800 [facility] Administration Insulin Human Lispro 0 unit 04/09/19 07:30 04/10/19 08:56 Humalog SUB-Q Not Given [facility] Protocol Metformin HCl 1,000 mg 04/09/19 08:00 04/10/19 09:59 Glucophage PO 1,000 mg BIDDIAB OCDY Administration Metoprolol Succinate 50 mg 04/10/19 10:00 04/10/19 10:05 Toprol Xl PO 50 mg QDAY [facility] Administration Oxycodone HCl 10 mg 04/09/19 00:22 04/10/19 10:03 Roxicodone PO 10 mg Q6H PRN Administration Pain, Severe (7-10) Spironolactone 25 mg 04/10/19 10:00 04/10/19 10:03 Aldactone PO 25 mg QDAY [facility] Administration Warfarin Sodium 4 mg 04/10/19 17:00 Coumadin PO DAILY@1700 [facility]
[2019-04-10] MEDS ORDERED: WARFARIN 2 MG TAB PO SCH (17:00)
[2019-04-11] MEDS: oxyCODONE 5 MG TAB PO PRN ×2 (04:45→10:16)
[2019-04-11 06:18] LABS: INR 1.89 (0.87-1.13)
[2019-04-11] MEDS: BUMETANIDE 1 MG/4 ML INJ IV SCH (06:33)
[2019-04-11] MEDS: INSULIN LISPRO 100 UNIT/ML SUB-Q SCH ×2 (08:27→12:27)
[2019-04-11] MEDS: metFORMIN 500 MG TAB PO SCH (08:35)
--- NOTE | 2019-04-11 10:13 | Progress Note ---
Assessment and Plan The pt is a 33 YO male with a past medical history significant for chronic systolic heart failure, dilated NICMP, AICD in situ ([employer]), frequent PVCs and NSVT, HTN, DM, RLE DVT, anticoagulated with coumadin, morbid obesity, lymphedema. Patient is feeling better today. Her dyspnea has improved her dizziness has improved. I had a long discussion with him regarding his weight loss and taking better care of himself. Today's monitor shows smooth sinus rhythm with occasional PVCs no further sustaining complex arrhythmias. If disch arged patient to follow as an outpatient. - Patient Problems (1) Acute combined systolic (congestive) and diastolic (congestive) heart failure Current Visit: No Status: Acute (2) Acute on chronic renal insufficiency Current Visit: No Status: Acute (3) Acute on chronic systolic (congestive) heart failure Current Visit: No Status: Acute (4) Bilateral lower extremity edema Current Visit: No Status: Acute (5) Obesity hypoventilation syndrome Current Visit: No Status: Acute (6) Ventricular tachycardia Current Visit: No Status: Acute (7) AICD (automatic cardioverter/defibrillator) present Current Visit: No Status: Chronic (8) Diabetes mellitus Current Visit: No Status: Chronic Qualifiers: Diabetes mellitus type: type 2 (9) HFrEF (heart failure with reduced ejection fraction) Current Visit: No Status: Chronic Qualifiers: Heart failure chronicity: acute on chronic Qualified Code(s): I50.23 - Acute on chronic systolic (congestive) heart failure (10) HTN (hypertension) Current Visit: No Status: Chronic Qualifiers: Hypertension type: essential hypertension Qualified Code(s): I10 - Essential (primary) hypertension (11) Lymphedema Current Visit: No Status: Chronic (12) Morbid obesity Current Visit: No Status: Chronic (13) NICM (nonischemic cardiomyopathy) Current Visit: No Status: Chronic Subjective Date of service: 04/11/19 Interval history: Patient is comfortable today. Dizziness is less. No chest pain. Dyspnea is improving. Objective Vital Signs Temp Pulse Pulse Resp Resp BP BP 04/11/19 08:06 98.6 F 72 20 116/70 04/11/19 05:45 18 04/11/19 04:45 18 04/11/19 04:24 98.3 F 04/11/19 04:23 72 18 130/81 04/10/19 23:53 98.6 F 04/10/19 23:52 67 20 92/43 04/10/19 23:03 18 04/10/19 22:45 77 18 04/10/19 22:08 18 04/10/19 22:03 18 04/10/19 20:05 72 04/10/19 19:20 98.1 F 04/10/19 19:18 77 20 111/72 04/10/19 16:56 98.4 F 40 L 18 92/65 04/10/19 12:42 98.6 F 86 18 156/78 Pulse Ox 04/11/19 08:06 97 04/11/19 05:45 04/11/19 04:45 04/11/19 04:24 04/11/19 04:23 98 04/10/19 23:53 04/10/19 23:52 98 04/10/19 23:03 04/10/19 22:45 98 04/10/19 22:08 04/10/19 22:03 04/10/19 20:05 04/10/19 19:20 04/10/19 19:18 98 04/10/19 16:56 96 04/10/19 12:42 100 - Physical Examination General: Other (morbidly obese gentleman in no acute distress on oxygen) HEENT: Positive: PERRL, Normocephaly, Mucus Membranes Moist Neck: Positive: neck supple, trachea midline Cardiac: Positive: Regular Rhythm Lungs: Positive: clear to auscultation Neuro: Positive: Grossly Intact Abdomen: Positive: Soft. Negative: Tender Skin: Negative: Rash Extremities: Present: edema (BLE lymphedema) - Labs and Meds Coagulation 04/11/19 Range/Units 05:42 PT 21.3 H (12.2-14.9) Sec. INR 1.89 H (0.87-1.13) - Imaging and Cardiology EKG: report reviewed, image reviewed Echo: report reviewed (03/03/2019 showed EF 15-20%, LV severely dilated, grade 2 diastolic dysfunction, mild to mod TR, mild to mod MR, mod reduced RV [id number] function, RVSP 57mmHg. ) Cardiac cath: report reviewed ( [facility] and [facility] at [place] on 10/24/2017 which showed angiographically normal coronary arteries, normal right-sided filling pressures with a mean RA pressure of 5 mmHg, mildly elevated pulmonary artery pressures with a mean PA pressure of 27 mmHg and PA pressure was 38/16mmHG, mildly elevated left-sided filling pressures with a mean PCWP of 18 mmHg with a directly measured LVEDP of 20 mmHg, normal cardiac output with a CO of 5.74 L/min with a cardiac index of 1.82 L/min/m2 using a the Albaro equation.) - EKG Sinus rhythms and dysrhythmias: sinus rhythm Ventricular dysrhythmias: ventricular premature com
[2019-04-11] MEDS: SACUBITRIL/VALSARTAN 49-51 MG TAB PO SCH (10:16)
[2019-04-11] MEDS: METOPROLOL SUCCINATE XL 50 MG TAB PO SCH (10:16)
[2019-04-11] MEDS: ASPIRIN EC 81 MG TAB PO SCH (10:16)
[2019-04-11] MEDS: SPIRONOLACTONE 25 MG TAB PO SCH (10:16)
[2019-04-11 12:26] VITALS: BP 115/69
--- NOTE | 2019-04-11 13:08 | Discharge Summary ---
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 Peripheral vascular disease hypertension DVT right lower extremity obesity lymphedema is with syncopal episode. Patient observed and worked up 48 hours only occasional PVC. No R abnormalities. Blood pressure remained stable. Unable to perform CT or MRI secondary to weight of greater than 550 pounds. Patient showed any evidence of altered mental status. logical exam unremarkable. patient did have right foot pain after fall. x-rays unremarkable. Disposition: - TO HOME OR SELFCARE - Discharge Diagnoses (1) Chest pain Status: Acute Comment: Without clear cardiac isoenzymes. Cardiac evaluation unremarkable as well. No EKG changes occasional PVCs significant rhythm changes. Electrolytes stable blood pressure optimal control. (2) Syncope Status: Acute Comment: A [place] follow cardiology's So heart 7-10 days. (3) Acute combined systolic (congestive) and diastolic (congestive) heart failure Status: Acute (4) Obesity hypoventilation syndrome Status: Acute Comment: Recent is informed of the benefits of weight loss. (5) Type 2 diabetes mellitus with diabetic chronic kidney disease Status: Acute (6) DVT (deep venous thrombosis) Status: Acute Comment: His INR remains therapeutic. Core Measure Documentation - Palliative Care Palliative Care/ Comfort Measures: Not Applicable - Core Measures Any of the following diagnoses?: heart failure - Heart Failure Discharge Requirements JOSH/ARB for LVSD if EF <40%: Yes Beta nilson at discharge: Yes Exam - Constitutional Vitals: Temp Pulse Resp BP Pulse Ox 98.3 F 77 18 115/69 100 04/11/19 12:17 04/11/19 12:17 04/11/19 12:17 04/11/19 12:17 04/11/19 12:17 General appearance: Present: no acute distress, well-nourished - EENT Eyes: Present: PERRL ENT: hearing intact, clear oral mucosa - Neck Neck: Present: supple, normal ROM - Respiratory Respiratory effort: normal Respiratory: bilateral: CTA - Cardiovascular Heart Sounds: Present: S1 & S2. Absent: rub, click - Extremities Extremities: pulses symmetrical, No edema Peripheral Pulses: within normal limits - Abdominal General gastrointestinal: Present: soft, non-tender, non-distended, normal bowel sounds Male genitourinary: Present: normal - Integumentary Integumentary: Present: clear, warm, dry - Musculoskeletal Musculoskeletal: strength equal bilaterally, other (lymphedema severe sereve obesity) - Psychiatric Psychiatric: appropriate mood/affect, intact judgment & insight - Neurologic Neurologic: CNII-XII intact, moves all extremities Plan Activity: up only with assistance, fall precautions Weight Bearing Status: Full Weight Bearing Special Instructions: restrict fluid intake to (1.5) Follow up with: PRIMARY CARE,MD [Primary Care Provider] - 3-5 Days Forms: Warfarin Discharge Instruction Prescriptions: oxyCODONE [roxiCODONE] 10 mg PO Q6H PRN #8 tablet PRN Reason: Pain, Severe (7-10)
[2019-04-11] MEDS ORDERED: WARFARIN 7.5 MG TAB PO SCH (17:00)
== END 2019-04-11 15:07 | disposition home or self-care (01) ==
LOC: ED 11:01 → 4A 15:57
PROVIDERS: ADMIT Internal Medicine; ATTEND Internal Medicine
DX: R07.89 Other chest pain (principal); R55 Syncope and collapse; I11.0 Hypertensive heart disease with heart failure; I50.9 Heart failure, unspecified; E11.22 Type 2 diabetes mellitus with diabetic chronic kidney disease; I25.10 Atherosclerotic heart disease of native coronary artery without angina pectoris; I47.2 Ventricular tachycardia; R60.0 Localized edema; E55.9 Vitamin D deficiency, unspecified; E66.01 Morbid (severe) obesity due to excess calories; Z79.84 Long term (current) use of oral hypoglycemic drugs; Z79.01 Long term (current) use of anticoagulants; Z68.44 Body mass index [BMI] 60.0-69.9, adult; Z95.810 Presence of automatic (implantable) cardiac defibrillator
CPT/HCPCS: 36415; 71045; 73590; 73620; 80048; 82962; 84484; 85007; 85025; 85379; 85610; 85730; 93005; 93010; 96374; 96375; 96376; 99284; A9270; G0378; J1170; J2405; J3010

== ENCOUNTER 2019-06-02 12:45 | Emergency (ER) | payer SELFPAY ==
[2019-06-02] MEDS ORDERED: ASPIRIN 325 MG TAB PO ONE (13:11)
[2019-06-02 14:16] LABS: Hematocrit 41.3 % (35.5-45.6); Hemoglobin 12.7 gm/dl (11.8-15.2); Red Blood Count 5.56 M/mm3 (3.65-5.03)
[2019-06-02 14:17] LABS: Mean Corpuscular HGB Conc 30 % (32-34); Mean Corpuscular Volume 74 fl (84-94); Platelet Count 233 K/mm3 (140-440); Red Cell Distribution Width 21.1 % (13.2-15.2)
[2019-06-02 14:23] LABS: INR 2.62 (0.87-1.13)
[2019-06-02 14:24] LABS: Partial Thromboplastin Time 40.2 Sec. (24.2-36.6)
--- NOTE | 2019-06-02 14:26 | XRay Report ---
CHEST 1 VIEW 06/02/2019 1:39 PM INDICATION / CLINICAL INFORMATION: Chest Pain. COMPARISON: One view of the chest from 04/08/2019. FINDINGS: SUPPORT DEVICES: Stable left ICD. HEART / MEDIASTINUM: Similar cardiomegaly. LUNGS / PLEURA: There is questionable mild interstitial edema. No significant pleural effusion. No pn eumothorax. ADDITIONAL FINDINGS: No significant additional findings. IMPRESSION: Stable cardiomegaly with questionable mild pulmonary edema. Signer Name: Robson Head MD Signed: 06/02/2019 2:22 PM Workstation Name: [id number]
[2019-06-02 14:30] LABS: BUN/Creatinine Ratio 33; Blood Urea Nitrogen 39 mg/dL (9-20); Calcium 9.4 mg/dL (8.4-10.2); Hemolysis Index 56
[2019-06-02] MEDS ORDERED: SUCRALFATE 1 GM/10 ML ORAL LIQD PO ONE (14:39)
[2019-06-02] MEDS ORDERED: FAMOTIDINE 20 MG TAB PO ONE (14:39)
[2019-06-02] MEDS ORDERED: oxyCODONE /ACETAMINOPHEN 5-325MG TAB PO ONE (14:39)
--- NOTE | 2019-06-02 14:41 | Emergency Department Report ---
ED General Adult HPI - General Chief complaint: Chest Pain Stated complaint: CHEST/R ANKLE PAIN Time Seen by Provider: 06/02/19 14:08 Source: patient, RN notes reviewed, old records reviewed Mode of arrival: Stretcher Limitations: Physical Limitation - History of Present Illness Initial comments: This is a 34-year-old gentleman. I have evaluated this patient in the past. He states he does not currently have a local primary care doctor or senior technologist. He has a history of morbid obesity, chronic systolic heart failure, dilated nonischemic cardiac myopathy, ICD in situ, frequent premature ventricular contractions, hypertension, diabetes, right lower extremity DVT, on permanent Coumadin therapy, had a cardiac catheterization in October 2017, which showed angiographically normal coronary arteries. The patient presents to the ER with 2 complaints. His first complaint is nontraumatic right plantar foot pain and ankle pain. It started spontaneously this morning. It is sharp, throbbing and aching. It does not radiate anywhere. It increases with palpation and range of motion. It decreases with rest. There is no hip pain, fever pain, knee pain, or proximal tibial pain. The patient endorsed that he was able to ambulate with his mother's walker. He endorses a secondary complaint of chest pain. The chest pain as central, constant for many hours, present since 10:30 in the morning, does not radiate to the back, arms or neck. There is no vomiting, diaphoresis, there is no new leg swelling, there is no new shortness of breath The patient makes no complaint of headache, neck pain, abdominal pain, hematemesis, bright red blood per rectum, or urinary symptoms. He states his chest pain does not have exacerbating or relieving factors that he is aware of. -: Gradual, Sudden Location: chest, right, lower extremity Radiation: other Severity scale (0 -10): 0 Quality: other Consistency: other Improves with: other Worsens with: other - Related Data Home Medications Medication Instructions Recorded Confirmed Last Taken Cholecalciferol (Vitamin D3) 50,000 unit PO QWEEK 04/08/19 04/08/19 04/04/19 [Vitamin D3 50,000UNIT CAP] carvediloL [Coreg] 3.125 mg PO BID 04/08/19 04/08/19 04/08/19 Previous Rx's Medication Instructions Recorded Last Taken Type Torsemide [Demadex] 60 mg PO BID #120 tablet 12/25/18 04/08/19 Rx Aspirin EC [Halfprin EC] 81 mg PO DAILY #30 tablet 01/05/19 04/08/19 Rx AtorvaSTATin [Lipitor] 40 mg PO QHS #60 tablet 01/05/19 04/07/19 Rx Warfarin [Coumadin] 2.5 mg PO DAILY@1700 #30 tablet 01/05/19 04/08/19 Rx Lispro Insulin [HumaLOG] 0 unit SUB-Q ACHS units 04/11/19 Unknown Rx Metoprolol Xl [Metoprolol 50 mg PO QDAY tablet 04/11/19 Unknown Rx SUCCINATE ER TAB] Sacubitril/Valsartan [Entresto 1 each PO BID tablet 04/11/19 Unknown Rx 49-51 mg] Spironolactone [Aldactone] 25 mg PO QDAY tablet 04/11/19 Unknown Rx Warfarin [Coumadin] 7.5 mg PO DAILY@1700 tablet 04/11/19 Unknown Rx metFORMIN [Glucophage] 1,000 mg PO BIDDIAB tablet 04/11/19 Unknown Rx oxyCODONE [roxiCODONE] 10 mg PO Q6H PRN tablet 04/11/19 Unknown Rx oxyCODONE [roxiCODONE] 10 mg PO Q6H PRN #8 tablet 04/11/19 Unknown Rx Allergies Allergy/AdvReac Type Severity Reaction Status Date / Time prochlorperazine Allergy Hives Verified 04/14/18 12:13 [From Compazine] ED Review of Systems ROS: Stated complaint: CHEST/R ANKLE PAIN Other details as noted in HPI Constitutional: denies: fever ENT: denies: congestion Respiratory: denies: cough, wheezing Cardiovascular: chest pain, edema. denies: syncope Gastrointestinal: denies: abdominal pain, nausea, vomiting, constipation, hematemesis, melena, hematochezia Musculoskeletal: arthralgia, myalgia Skin: denies: lesions Neurological: denies: weakness, numbness, paresthesias Hematological/Lymphatic: denies: easy bleeding ED Past Medical Hx - Past Medical History Previous Medical History?: Yes Hx Hypertension: Yes Hx Heart Attack/AMI: Yes Hx Congestive Heart Failure: Yes Hx Diabetes: Yes Hx Deep Vein Thrombosis: Yes Hx Pulmonary Embolism: No Hx Sickle Cell Disease: No Hx Asthma: No Hx COPD: No Hx Tuberculosis: No Hx HIV: No Additional medical history: R sided chest tube, -infection in lung. defibrillator 10/2017. EJ 15%. 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 ) Additional Surgical History: lymphedema - Social History Smoking Status: Never Smoker Substance Use Type: None - Medications Home Medications: Home Medications Medication Instructions Recorded Confirmed Last Taken Type Torsemide [Demadex] 60 mg PO BID #120 tablet 12/25/18 04/08/19 04/08/19 Rx Aspirin EC [Halfprin EC] 81 mg PO DAILY #30 tablet 01/05/19 04/08/19 04/08/19 Rx AtorvaSTATin [Lipitor] 40 mg PO QHS #60 tablet 01/05/19 04/08/19 04/07/19 Rx Warfarin [Coumadin] 2.5 mg PO DAILY@1700 #30 tablet 01/05/19 04/08/19 04/08/19 Rx Cholecalciferol (Vitamin D3) 50,000 unit PO QWEEK 04/08/19 04/08/19 04/04/19 History [Vitamin D3 50,000UNIT CAP] carvediloL [Coreg] 3.125 mg PO BID 04/08/19 04/08/19 04/08/19 History Lispro Insulin [HumaLOG] 0 unit SUB-Q ACHS units 04/11/19 Unknown Rx Metoprolol Xl [Metoprolol 50 mg PO QDAY tablet 04/11/19 Unknown Rx SUCCINATE ER TAB] Sacubitril/Valsartan [Entresto 1 each PO BID tablet 04/11/19 Unknown Rx 49-51 mg] Spironolactone [Aldactone] 25 mg PO QDAY tablet 04/11/19 Unknown Rx Warfarin [Coumadin] 7.5 mg PO DAILY@1700 tablet 04/11/19 Unknown Rx metFORMIN [Glucophage] 1,000 mg PO BIDDIAB tablet 04/11/19 Unknown Rx oxyCODONE [roxiCODONE] 10 mg PO Q6H PRN tablet 04/11/19 Unknown Rx oxyCODONE [roxiCODONE] 10 mg PO Q6H PRN #8 tablet 04/11/19 Unknown Rx ED Physical Exam - General Limitations: Physical Limitation General appearance: alert, anxious, obese - Head Head exam: Present: atraumatic, normocephalic - Eye Eye exam: Present: normal appearance, EOMI. Absent: nystagmus - ENT ENT exam: Present: normal exam, normal orophraynx, mucous membranes moist, normal external ear exam - Neck Neck exam: Present: normal inspection, full ROM. Absent: tenderness, meningismus - Respiratory Respiratory exam: Absent: respiratory distress, wheezes, rales, rhonchi, stridor, decreased breath sounds - Cardiovascular Cardiovascular Exam: Present: regular rate, normal rhythm, normal heart sounds. Absent: bradycardia, tachycardia, irregular rhythm, systolic murmur, diastolic murmur, rubs, gallop - GI/Abdominal GI/Abdominal exam: Present: soft. Absent: distended, tenderness, guarding, rebound, rigid, pulsatile mass - Rectal Rectal exam: Present: deferred - Extremities Exam Extremities exam: Present: normal inspection, tenderness (there is right medial and ankle tenderness. There is no redness, pus or streaking. Compartments are soft. There is chronic lower extremity edema noted. There is no palpable cord. The pelvis is stable. There is no knee tenderness. Goldstein test is functional.), pedal edema. Absent: calf tenderness - Back Exam Back exam: Present: normal inspection. Absent: tenderness, CVA tenderness (R), CVA tenderness (L), paraspinal tenderness, vertebral tenderness - Neurological Exam Neurological exam: Present: alert, oriented X3, other (there is no facial droop. The tongue is midline. Extraocular movements are intact bilaterally. Patient speaking in full complete sentences. Shoulder shrug is intact bilaterally. Hearing is grossly intact bilaterally. Visual acuity intact to finger counting and color perception at a close distance. 5/5 strength 4 extremities. Sensation intact to light touch in 4 extremities.). Absent: motor sensory deficit - Psychiatric Psychiatric exam: Present: normal affect, normal mood - Skin Skin exam: Present: warm, dry, intact, normal color. Absent: rash ED Course Vital Signs 06/02/19 06/02/19 06/02/19 13:06 13:22 13:44 Temperature Pulse Rate 48 L 85 Respiratory 16 15 Rate Blood Pressure 98/51 Blood Pressure 121/79 [Left] O2 Sat by Pulse 96 97 99 Oximetry 06/02/19 14:57 Temperature 97.9 F Pulse Rate Respiratory Rate Blood Pressure Blood Pressure [Left] O2 Sat by Pulse Oximetry - Reevaluation(s) Reevaluation #1: 06/02/19 15:48 Differential diagnosis, including not limited to: Sprain, strain, fracture, dislocation, plantar fasciitis, GERD, gastritis, hiatal hernia, pneumonia, acute coronary syndrome, pericardial effusion Assessment and plan: 34-year-old gentleman with 2 complaints Complaints #1, nontraumatic right ankle and foot pain for 1 day. Exam not consistent with cellulitis, or compartment syndrome, he is neurovascularly intact. Has some reproducible soft tissue tenderness. This is most likely secondary to morbid obesity. He verbalizes that he was able to get around at home with his mother's walker. We will treat him with Percocet for pain, and obtain plain films of the foot, ankle, knee, fibula/tibia. Most likely, the patient will need to lose weight, which he has ordering counseled about as as per prior cardiology documentation review, he can follow- up with an outpatient primary care doctor and/or physical therapy. Anticipate discharge with Tylenol if no fracture or dislocation noted. Complaint #2 chest pain EKG unchanged 2. Patient does not appear to be fluid overloaded clinically. He has no crackles, rales he does not have significant JVD. X-ray the chest is reviewed and appreciated, this is likely the patient's baseline. Does not require emergency administration of diuretics. Had a cardiac catheterization in 2017 which showed normal coronary arteries. He was seen by cardiology in March for cardiac-related complaints. I think a pulmonary embolism is unlikely as INR is therapeutic, he is not tachypneic, tachycardic, or hypoxic. His exam is not suggestive of DVT. Troponin negative 1, repeat troponin pending. We will treat symptoms, and if repeat troponin unremarkable which we anticipate, he can follow-up with an outpatient senior technologist. Currently, the patient does not meet inpatient criteria for hospitalization. Reevaluation #2: 06/02/19 16:28 Troponin negative 2. EKG unchanged 2. X-ray right lower extremity, right ankle, right foot does not demonstrate fracture, dislocation. The patient does not appear to have an emergency medical condition at this time. He will need to follow up with outpatient primary care, and cardiology. A case management consult was ordered to facilitate home physical therapy. Alternatively, the patient can coordinate with an outpatient primary care doctor and/or orthopedist for physical therapy to right lower extremity. ED Medical Decision Making - Lab Data Result diagrams: 06/02/19 13:51 06/02/19 13:51 Vital Signs 06/02/19 06/02/19 06/02/19 13:06 13:22 13:44 Temperature Pulse Rate 48 L 85 Respiratory 16 15 Rate Blood Pressure 98/51 Blood Pressure 121/79 [Left] O2 Sat by Pulse 96 97 99 Oximetry 06/02/19 14:57 Temperature 97.9 F Pulse Rate Respiratory Rate Blood Pressure Blood Pressure [Left] O2 Sat by Pulse Oximetry Lab Results 06/02/19 06/02/19 06/02/19 Range/Units 13:51 13:51 13:51 WBC 4.6 (4.5-11.0) K/mm3 RBC 5.56 H (3.65-5.03) M/mm3 Hgb 12.7 (11.8-15.2) gm/dl Hct 41.3 (35.5-45.6) % MCV 74 L (84-94) fl MCH 22 L (28-32) pg MCHC 30 L (32-34) % RDW 21.1 H (13.2-15.2) % Plt Count 233 (140-440) K/mm3 Add Manual Diff Complete Total Counted 100 Seg Neuts % (Manual) 66.0 (40.0-70.0) % Band Neutrophils % 0 % Lymphocytes % (Manual) 22.0 (13.4-35.0) % Reactive Lymphs % (Man) 1.0 % Monocytes % (Manual) 9.0 H (0.0-7.3) % Eosinophils % (Manual) 1.0 (0.0-4.3) % Basophils % (Manual) 1.0 (0.0-1.8) % Metamyelocytes % 0 % Myelocytes % 0 % Promyelocytes % 0 % Blast Cells % 0 % Nucleated RBC % Not Reportable Seg Neutrophils # Man 3.0 (1.8-7.7) K/mm3 Band Neutrophils # 0.0 K/mm3 Lymphocytes # (Manual) 1.0 L (1.2-5.4) K/mm3 Abs React Lymphs (Man) 0.0 K/mm3 Monocytes # (Manual) 0.4 (0.0-0.8) K/mm3 Eosinophils # (Manual) 0.0 (0.0-0.4) K/mm3 Basophils # (Manual) 0.0 (0.0-0.1) K/mm3 Metamyelocytes # 0.0 K/mm3 Myelocytes # 0.0 K/mm3 Promyelocytes # 0.0 K/mm3 Blast Cells # 0.0 K/mm3 WBC Morphology Not Reportable Hypersegmented Neuts Not Reportable Hyposegmented Neuts Not Reportable Hypogranular Neuts Not Reportable Smudge Cells Not Reportable Toxic Granulation Not Reportable Toxic Vacuolation Not Reportable Dohle Bodies Not Reportable Pelger-Huet Anomaly Not Reportable Leslie Rods Not Reportable Platelet Estimate Consistent w auto Clumped Platelets Not Reportable Plt Clumps, EDTA Not Reportable Large Platelets Few Giant Platelets Not Reportable Platelet Satelliting Not Reportable Plt Morphology Comment Not Reportable RBC Morphology Not Reportable Dimorphic RBCs Not Reportable Polychromasia Not Reportable Hypochromasia 2+ Poikilocytosis 1+ Anisocytosis 1+ Microcytosis Not Reportable Macrocytosis Not Reportable Spherocytes Not Reportable Pappenheimer Bodies Not Reportable Sickle Cells Not Reportable Target Cells Not Reportable Tear Drop Cells Few Ovalocytes Few Helmet Cells Not Reportable [place] Bodies Not Reportable Cresco Rings Not Reportable Joseline Cells Not Reportable Bite Cells Not Reportable Crenated Cell Not Reportable Elliptocytes Few Acanthocytes (Spur) Not Reportable Rouleaux Not Reportable Hemoglobin C Crystals Not Reportable Schistocytes Not Reportable Malaria parasites Not Reportable Cliff Bodies Not Reportable Hem Pathologist Commnt No PT 27.5 H (12.2-14.9) Sec. INR 2.62 H (0.87-1.13) APTT 40.2 H (24.2-36.6) Sec. Sodium 137 (137-145) mmol/L Potassium 5.0 (3.6-5.0) mmol/L Chloride 102.9 (98-107) mmol/L Carbon Dioxide 21 L (22-30) mmol/L Anion Gap 18 mmol/L BUN 39 H (9-20) mg/dL Creatinine 1.2 (0.8-1.5) mg/dL Estimated GFR > 60 ml/min BUN/Creatinine Ratio 33 % Glucose 128 H (75-100) mg/dL Calcium 9.4 (8.4-10.2) mg/dL Troponin T 0.027 (0.00-0.029) ng/mL - EKG Data -: EKG Interpreted by Me - EKG Data When compared to previous EKG there are: no significant change 06/02/19 15:47 Patient has had 2 EKGs today. EKG #1 shows a sinus rhythm, borderline leftward axis deviation, multiple premature ventricular contractions, the QTC is prolonged, the AK interval is prolonged, there is low voltage, EKG is abnormal, it is not consistent with ST elevation myocardial infarction. ekg #2 was unchanged from prior. Both EKGs unchanged from prior EKG. - Radiology Data Radiology results: pending, report reviewed, image reviewed X-ray of the chest is negative for acute disease, chronic findings noted. Critical care attestation.: If time is entered above; I have spent that time in minutes in the direct care of this critically ill patient, excluding procedure time. ED Disposition Clinical Impression: Chest pain, Right leg pain Disposition: TO HOME OR SELFCARE Is pt being admited?: No Does the pt Need Aspirin: No Condition: Stable Instructions: Chest Pain (ED) Additional Instructions: Continue current outpatient medications. Patient may take Tylenol, over-the- counter, 650 mg by mouth, every 4-6 hours as needed for pain. Recommend avoidance of Motrin, ibuprofen, Naprosyn, Aleve given that patient is currently taking Coumadin therapy. Weightbearing as tolerated in the right lower extremity, avoid strenuous physical activity, recommend following up with an outpatient primary care doctor or orthopedist for right lower extremity pain, and referral for outpatient physical therapy. Recommend following up with an outpatient senior technologist within the next 3-5 days. Return to emergency room right away, worsening, different symptoms, or symptoms not present on the initial emergency room evaluation. Recommend aggressive weight loss, modification of diet to avoid consumption of salt, carbohydrates, sugar. Recommend consumption of lean protein, and green vegetables as well as fiber. Referrals: [facility] [Provider Group] - 3-5 Days [facility] [Provider Group] - 3-5 Days [facility] [Provider Group] - 3-5 Days [facility] [Provider Group] - 3-5 Days [facility] [Provider Group] - 3-5 Days
[2019-06-02 14:56] LABS: Anisocytosis 1+; Hypochromasia 2+; Total Cells Counted 100
[2019-06-02 14:57] LABS: Ovalocytes Few; Poikilocytosis 1+; Tear Drop Cells Few
[2019-06-02 14:58] LABS: Large Platelets Few; Platelet Estimate Consistent w Auto
[2019-06-02] MEDS ORDERED: ACETAMINOPHEN 325 MG TAB PO ONE (15:59)
--- NOTE | 2019-06-02 16:21 | XRay Report ---
RIGHT FOOT 3 VIEWS RIGHT ANKLE 4 VIEWS RIGHT TIBIA/FIBULA 2 VIEWS RIGHT KNEE 3 VIEWS INDICATION / CLINICAL INFORMATION: Pain in right foot, ankle, leg and knee after recent injury. COMPARISON: Right foot and tibia/fibula series from 04/08/2019. FINDINGS: BONES and JOINT(S): No acute displaced fracture or dislocation is noted. Mild degenerative changes of the knee are stable. No other significant osseous abnormality is seen. SOFT TISSUES: There is similar generalized edema throughout the leg, ankle and foot. ADDITIONAL FINDINGS: None. IMPRESSION: 1. No acute osseous abnormality of the right foot, ankle, tibia/fibula or knee. 2. Generalized right lower extremity edema. Signer Name: Robson Head MD Signed: 06/02/2019 4:16 PM Workstation Name: [id number]
[2019-06-02 17:15] VITALS: BP 124/74
== END 2019-06-02 17:20 | disposition home or self-care (01) ==
LOC: ED 12:45
DX: M25.571 Pain in right ankle and joints of right foot (principal); R07.89 Other chest pain; I11.0 Hypertensive heart disease with heart failure; I50.9 Heart failure, unspecified; E11.9 Type 2 diabetes mellitus without complications; Z86.718 Personal history of other venous thrombosis and embolism; Z79.899 Other long term (current) drug therapy; Z95.0 Presence of cardiac pacemaker; Z98.890 Other specified postprocedural states; Z79.4 Long term (current) use of insulin; Z88.8 Allergy status to other drugs, medicaments and biological substances
CPT/HCPCS: 36415; 71045; 80048; 82550; 83735; 84484; 85007; 85025; 85610; 85730; 93005; 93010

== ENCOUNTER 2019-06-14 04:36 | Inpatient (IN) | payer OTHER ==
[2019-06-14] MEDS ORDERED: FUROSEMIDE 40 MG/4 ML INJ IV ONE (05:00)
[2019-06-14] MEDS ORDERED: ASPIRIN 325 MG TAB PO ONE (05:00)
[2019-06-14 05:38] LABS: INR 2.76 (0.87-1.13)
[2019-06-14 05:39] LABS: Partial Thromboplastin Time 37.7 Sec. (24.2-36.6)
[2019-06-14] MEDS ORDERED: KETOROLAC 30 MG/1 ML INJ ONE (05:39)
--- NOTE | 2019-06-14 05:39 | Emergency Department Report ---
ED Chest Pain HPI - General Chief Complaint: Dyspnea/Respdistress Stated Complaint: LEG SWELLING/SOB Time Seen by Provider: 06/14/19 04:58 Source: EMS Mode of arrival: Stretcher Limitations: No Limitations - History of Present Illness Initial Comments: Patient is a 34-year-old -Iranian male with a history of morbid obesity, chronic systolic heart failure, dilated nonischemic cardiac myopathy, ICD in situ, frequent premature ventricular contractions, hypertension, diabetes, right lower extremity DVT, on permanent Coumadin therapy, had a card iac catheterization in October 2017, which showed angiographically normal coronary arteries. Patient states that since Thanksgiving with 4 days prior to his arrival patient has had progressively worsening leg swelling shortness of breath orthopnea. Patient states he woke up from sleep tonight with inability to breathe. They spoke him sweat and was having chest discomfort. Patient's had occasional chest discomfort last several days mostly with exertion. Patient states his weight is approximate 40 pounds over his dry weight. Patient states it was taken extra torsemide order to help with his shortness of breath as well as his leg swelling. Patient states chest pain is a light pressure sensation is 4 out of 10 in severity but is constant. He denies fevers chills nausea vomiting or diarrhea. - Related Data Home Medications Medication Instructions Recorded Confirmed Last Taken Cholecalciferol (Vitamin D3) 50,000 unit PO QWEEK 04/08/19 06/16/19 04/04/19 [Vitamin D3 50,000UNIT CAP] Previous Rx's Medication Instructions Recorded Last Taken Type Lispro Insulin [HumaLOG] 0 unit SUB-Q ACHS units 04/11/19 Unknown Rx Spironolactone [Aldactone] 25 mg PO QDAY #90 tablet 06/21/19 Unknown Rx Warfarin [Coumadin] 10 mg PO DAILY@1700 #30 tablet 06/21/19 Unknown Rx carvediloL [Coreg] 3.125 mg PO BID #60 tablet 06/21/19 Unknown Rx metFORMIN XR [Glucophage XR] 500 mg PO QDAY #90 tab 06/21/19 Unknown Rx oxyCODONE /ACETAMINOPHEN [Percocet 1 tab PO Q6H PRN #14 tablet 06/21/19 Unknown Rx 5/325 mg] Aspirin EC [Halfprin EC] 81 mg PO DAILY #30 tablet 06/24/19 Unknown Rx AtorvaSTATin [Lipitor] 40 mg PO QHS #60 tablet 06/24/19 Unknown Rx Bumetanide [Bumex 1 mg tab] 1 mg PO BID #60 tab 06/24/19 Unknown Rx Sacubitril/Valsartan [Entresto 1 each PO BID #60 tablet 06/24/19 Unknown Rx 49-51 mg] metOLazone [Zaroxolyn] 2.5 mg PO QDAY #30 tablet 06/24/19 Unknown Rx Allergies Allergy/AdvReac Type Severity Reaction Status Date / Time hydrochlorothiazide Allergy Unknown Verified 06/22/19 07:28 prochlorperazine Allergy Hives Verified 04/14/18 12:13 [From Compazine] Heart Score - HEART Score History: Highly suspicious EKG: Non-specific Age: < 45 Risk factors: 1-2 risk factors Troponin: < normal limit HEART Score: 4 ED Review of Systems ROS: Stated complaint: LEG SWELLING/SOB Other details as noted in HPI Comment: All other systems reviewed and negative ED Past Medical Hx - Past Medical History Hx Hypertension: Yes Hx Heart Attack/AMI: Yes Hx Congestive Heart Failure: Yes Hx Diabetes: Yes Hx Deep Vein Thrombosis: Yes Hx Pulmonary Embolism: No Hx Sickle Cell Disease: No Hx Asthma: No Hx COPD: No Hx Tuberculosis: No Hx HIV: No Additional medical history: R sided chest tube, -infection in lung. defibrillator 10/2017. EJ 15%. lymphedema - Surgical History Hx Pacemaker: Yes Hx Internal Defibrillator: Yes ([employer]. [employer] ) Additional Surgical History: lymphedema - Social History Smoking Status: Never Smoker Substance Use Type: Prescribed - Medications Home Medications: Home Medications Medication Instructions Recorded Confirmed Last Taken Type Cholecalciferol (Vitamin D3) 50,000 unit PO QWEEK 04/08/19 06/16/19 04/04/19 History [Vitamin D3 50,000UNIT CAP] Lispro Insulin [HumaLOG] 0 unit SUB-Q ACHS units 04/11/19 06/16/19 Unknown Rx Spironolactone [Aldactone] 25 mg PO QDAY #90 tablet 06/21/19 Unknown Rx Warfarin [Coumadin] 10 mg PO DAILY@1700 #30 tablet 06/21/19 Unknown Rx carvediloL [Coreg] 3.125 mg PO BID #60 tablet 06/21/19 Unknown Rx metFORMIN XR [Glucophage XR] 500 mg PO QDAY #90 tab 06/21/19 Unknown Rx oxyCODONE /ACETAMINOPHEN [Percocet 1 tab PO Q6H PRN #14 tablet 06/21/19 Unknown Rx 5/325 mg] Aspirin EC [Halfprin EC] 81 mg PO DAILY #30 tablet 06/24/19 Unknown Rx AtorvaSTATin [Lipitor] 40 mg PO QHS #60 tablet 06/24/19 Unknown Rx Bumetanide [Bumex 1 mg tab] 1 mg PO BID #60 tab 06/24/19 Unknown Rx Sacubitril/Valsartan [Entresto 1 each PO BID #60 tablet 06/24/19 Unknown Rx 49-51 mg] metOLazone [Zaroxolyn] 2.5 mg PO QDAY #30 tablet 06/24/19 Unknown Rx ED Physical Exam - General Limitations: No Limitations General appearance: alert, in no apparent distress - Head Head exam: Present: atraumatic, normocephalic - Eye Eye exam: Present: normal appearance, PERRL, EOMI - ENT ENT exam: Present: mucous membranes moist - Neck Neck exam: Present: normal inspection - Respiratory Respiratory exam: Present: respiratory distress, rales. Absent: normal lung sounds bilaterally, wheezes - Cardiovascular Cardiovascular Exam: Present: regular rate, irregular rhythm. Absent: systolic murmur, diastolic murmur, rubs, gallop - GI/Abdominal GI/Abdominal exam: Present: soft, distended, normal bowel sounds. Absent: tenderness, guarding, rebound - Rectal Rectal exam: Present: deferred - Extremities Exam Extremities exam: Present: normal inspection, other (+3 bilateral ARIC) - Back Exam Back exam: Present: normal inspection - Neurological Exam Neurological exam: Present: alert, oriented X3 - Psychiatric Psychiatric exam: Present: normal affect, normal mood - Skin Skin exam: Present: warm, dry, intact, normal color. Absent: rash ED Course Vital Signs 06/14/19 06/14/19 06/14/19 04:41 05:01 05:42 Temperature 97.9 F Pulse Rate 85 84 Respiratory 20 16 20 Rate Blood Pressure 136/101 Blood Pressure 136/103 114/74 [Left] O2 Sat by Pulse 93 95 94 Oximetry 06/14/19 06/14/19 06/14/19 07:00 07:16 07:30 Temperature Pulse Rate 78 76 76 Respiratory 16 22 Rate Blood Pressure 117/58 117/58 117/58 Blood Pressure [Left] O2 Sat by Pulse 94 97 95 Oximetry 06/14/19 06/14/19 06/14/19 07:46 08:00 08:16 Temperature Pulse Rate 79 83 76 Respiratory 16 23 13 Rate Blood Pressure 97/70 107/60 114/80 Blood Pressure [Left] O2 Sat by Pulse 97 97 Oximetry 06/14/19 06/14/19 06/14/19 08:30 08:46 08:53 Temperature Pulse Rate 96 H 76 Respiratory 14 22 20 Rate Blood Pressure 104/62 104/62 Blood Pressure [Left] O2 Sat by Pulse 98 Oximetry 06/14/19 09:00 Temperature Pulse Rate 76 Respiratory 15 Rate Blood Pressure 116/84 Blood Pressure [Left] O2 Sat by Pulse 97 Oximetry CRUZ score - Cruz Score Age > 65: (0) No Aspirin use within the Past 7 Days: (1) Yes 3 or more CAD Risk Factors: (1) Yes 2 or more Angina events in past 24 hrs: (0) No Known CAD with more than 50% Stenosis: (0) No Elevated Cardiac Markers: (0) No ST Deviation Greater than 0.5mm: (0) No CRUZ Score: 2 ED Medical Decision Making - Lab Data Result diagrams: 06/20/19 08:56 06/22/19 04:54 Lab Results 06/14/19 06/14/19 06/14/19 Range/Units 04:55 05:13 05:13 WBC 4.9 (4.5-11.0) K/mm3 RBC 4.78 (3.65-5.03) M/mm3 Hgb 10.9 L (11.8-15.2) gm/dl Hct 35.4 L (35.5-45.6) % MCV 74 L (84-94) fl MCH 23 L (28-32) pg MCHC 31 L (32-34) % RDW 20.7 H (13.2-15.2) % Plt Count 241 (140-440) K/mm3 Add Manual Diff Complete Total Counted 100 Seg Neuts % (Manual) 44.0 (40.0-70.0) % Band Neutrophils % 0 % Lymphocytes % (Manual) 39.0 H (13.4-35.0) % Reactive Lymphs % (Man) 2.0 % Monocytes % (Manual) 13.0 H (0.0-7.3) % Eosinophils % (Manual) 1.0 (0.0-4.3) % Basophils % (Manual) 1.0 (0.0-1.8) % Metamyelocytes % 0 % Myelocytes % 0 % Promyelocytes % 0 % Blast Cells % 0 % Nucleated RBC % 2.0 H (0.0-0.9) % Seg Neutrophils # Man 2.2 (1.8-7.7) K/mm3 Band Neutrophils # 0.0 K/mm3 Lymphocytes # (Manual) 1.9 (1.2-5.4) K/mm3 Abs React Lymphs (Man) 0.1 K/mm3 Monocytes # (Manual) 0.6 (0.0-0.8) K/mm3 Eosinophils # (Manual) 0.0 (0.0-0.4) K/mm3 Basophils # (Manual) 0.0 (0.0-0.1) K/mm3 Metamyelocytes # 0.0 K/mm3 Myelocytes # 0.0 K/mm3 Promyelocytes # 0.0 K/mm3 Blast Cells # 0.0 K/mm3 WBC Morphology Not Reportable Hypersegmented Neuts Not Reportable Hyposegmented Neuts Not Reportable Hypogranular Neuts Not Reportable Smudge Cells Not Reportable Toxic Granulation Not Reportable Toxic Vacuolation Not Reportable Dohle Bodies Not Reportable Pelger-Huet Anomaly Not Reportable Leslie Rods Not Reportable Platelet Estimate Consistent w auto Clumped Platelets Not Reportable Plt Clumps, EDTA Not Reportable Large Platelets Not Reportable Giant Platelets Not Reportable Platelet Satelliting Not Reportable Plt Morphology Comment Not Reportable RBC Morphology Not Reportable Dimorphic RBCs Not Reportable Polychromasia Not Reportable Hypochromasia 1+ Poikilocytosis 1+ Anisocytosis 1+ Microcytosis Not Reportable Macrocytosis Not Reportable Spherocytes Not Reportable Pappenheimer Bodies Not Reportable Sickle Cells Not Reportable Target Cells Not Reportable Tear Drop Cells Few Ovalocytes Few Helmet Cells Not Reportable Jackson-Phelan Bodies Not Reportable Thaxton Rings Not Reportable Joseline Cells Not Reportable Bite Cells Not Reportable Crenated Cell Not Reportable Elliptocytes Few Acanthocytes (Spur) Not Reportable Rouleaux Not Reportable Hemoglobin C Crystals Not Reportable Schistocytes Not Reportable Malaria parasites Not Reportable Cliff Bodies Not Reportable Hem Pathologist Commnt No PT (12.2-14.9) Sec. INR (0.87-1.13) APTT (24.2-36.6) Sec. Sodium (137-145) mmol/L Potassium (3.6-5.0) mmol/L Chloride (98-107) mmol/L Carbon Dioxide (22-30) mmol/L Anion Gap mmol/L BUN (9-20) mg/dL Creatinine (0.8-1.5) mg/dL Estimated GFR ml/min BUN/Creatinine Ratio % Glucose (75-100) mg/dL POC Glucose 89 (70-105) Calcium (8.4-10.2) mg/dL Troponin T (0.00-0.029) ng/mL NT-Pro-B Natriuret Pep 1663 H (0-450) pg/mL 06/14/19 06/14/19 Range/Units 05:13 05:13 WBC (4.5-11.0) K/mm3 RBC (3.65-5.03) M/mm3 Hgb (11.8-15.2) gm/dl Hct (35.5-45.6) % MCV (84-94) fl MCH (28-32) pg MCHC (32-34) % RDW (13.2-15.2) % Plt Count (140-440) K/mm3 Add Manual Diff Total Counted Seg Neuts % (Manual) (40.0-70.0) % Band Neutrophils % % Lymphocytes % (Manual) (13.4-35.0) % Reactive Lymphs % (Man) % Monocytes % (Manual) (0.0-7.3) % Eosinophils % (Manual) (0.0-4.3) % Basophils % (Manual) (0.0-1.8) % Metamyelocytes % % Myelocytes % % Promyelocytes % % Blast Cells % % Nucleated RBC % (0.0-0.9) % Seg Neutrophils # Man (1.8-7.7) K/mm3 Band Neutrophils # K/mm3 Lymphocytes # (Manual) (1.2-5.4) K/mm3 Abs React Lymphs (Man) K/mm3 Monocytes # (Manual) (0.0-0.8) K/mm3 Eosinophils # (Manual) (0.0-0.4) K/mm3 Basophils # (Manual) (0.0-0.1) K/mm3 Metamyelocytes # K/mm3 Myelocytes # K/mm3 Promyelocytes # K/mm3 Blast Cells # K/mm3 WBC Morphology Hypersegmented Neuts Hyposegmented Neuts Hypogranular Neuts Smudge Cells Toxic Granulation Toxic Vacuolation Dohle Bodies Pelger-Huet Anomaly Leslie Rods Platelet Estimate Clumped Platelets Plt Clumps, EDTA Large Platelets Giant Platelets Platelet Satelliting Plt Morphology Comment RBC Morphology Dimorphic RBCs Polychromasia Hypochromasia Poikilocytosis Anisocytosis Microcytosis Macrocytosis Spherocytes Pappenheimer Bodies Sickle Cells Target Cells Tear Drop Cells Ovalocytes Helmet Cells Jackson-Phelan Bodies Thaxton Rings Joseline Cells Bite Cells Crenated Cell Elliptocytes Acanthocytes (Spur) Rouleaux Hemoglobin C Crystals Schistocytes Malaria parasites Cliff Bodies Hem Pathologist Commnt PT 28.6 H (12.2-14.9) Sec. INR 2.76 H (0.87-1.13) APTT 37.7 H (24.2-36.6) Sec. Sodium 137 (137-145) mmol/L Potassium 4.2 (3.6-5.0) mmol/L Chloride 101.1 (98-107) mmol/L Carbon Dioxide 24 (22-30) mmol/L Anion Gap 16 mmol/L BUN 43 H (9-20) mg/dL Creatinine 1.6 H (0.8-1.5) mg/dL Estimated GFR > 60 ml/min BUN/Creatinine Ratio 27 % Glucose 93 (75-100) mg/dL POC Glucose (70-105) Calcium 9.1 (8.4-10.2) mg/dL Troponin T 0.023 (0.00-0.029) ng/mL NT-Pro-B Natriuret Pep (0-450) pg/mL - EKG Data -: EKG Interpreted by Me - EKG Data 06/14/19 05:46 EKG shows sinus rhythm rate of 82 the axis is leftward as prolonged HI intervals patient has multiple couplets present. EKG is compared to several EKGs patient said this year and is very similar in nature. There is no ST segment elevations or depressions. - Radiology Data CHEST 1 VIEW INDICATION / CLINICAL INFORMATION: CP sob. COMPARISON: None available. FINDINGS: SUPPORT DEVICES: None. HEART / MEDIASTINUM: Cardiomegaly. LUNGS / PLEURA: Mild interstitial edema Signer Name: Nikolay Ritter MD Signed: 06/14/2019 5:36 AM Workstation Name: [employer] - Medical Decision Making Patient is a 34-year-old gentleman who is presenting with fluid overload. Patient does have evidence of pulmonary edema on chest x-ray. Patient will be admitted to the hospitalist service for further management. Critical Care Time: Yes (30) Critical care attestation.: If time is entered above; I have spent that time in minutes in the direct care of this critically ill patient, excluding procedure time. ED Disposition Clinical Impression: Bilateral lower extremity edema CHF exacerbation Qualifiers: Heart failure type: unspecified Qualified Code(s): I50.9 - Heart failure, unspecified Cardiomyopathy Qualifiers: Cardiomyopathy type: unspecified Qualified Code(s): I42.9 - Cardiomyopathy, unspecified Dyspnea Qualifiers: Dyspnea type: shortness of breath Qualified Code(s): R06.02 - Shortness of breath Disposition: DC-09 OP ADMIT IP TO THIS HOSP Is pt being admited?: Yes Condition: Fair
[2019-06-14] MEDS ORDERED: KETOROLAC 30 MG/1 ML INJ IV ONE (05:40)
[2019-06-14 05:50] LABS: Red Blood Count 4.78 M/mm3 (3.65-5.03)
[2019-06-14 05:51] LABS: Hematocrit 35.4 % (35.5-45.6); Hemoglobin 10.9 gm/dl (11.8-15.2); Mean Corpuscular HGB Conc 31 % (32-34); Mean Corpuscular Volume 74 fl (84-94); Platelet Count 241 K/mm3 (140-440); Red Cell Distribution Width 20.7 % (13.2-15.2)
[2019-06-14 05:55] LABS: BUN/Creatinine Ratio 27; Blood Urea Nitrogen 43 mg/dL (9-20); Calcium 9.1 mg/dL (8.4-10.2); Hemolysis Index 4
[2019-06-14 06:43] LABS: Total Cells Counted 100
[2019-06-14 06:44] LABS: Anisocytosis 1+; Hypochromasia 1+; Ovalocytes Few; Platelet Estimate Consistent w Auto; Poikilocytosis 1+; Tear Drop Cells Few
--- NOTE | 2019-06-14 07:21 | History and Physical Report ---
History of Present Illness Date of examination: 06/14/19 Date of admission: 06/21/19 Chief complaint: Shortness of breath History of present illness: Patient is a 34-year-old -[place] male with a history of morbid obesity, chronic systolic heart failure, dilated nonischemic cardiac myopathy, ICD in situ, frequent premature ventricular contractions, hypertension, diabetes, right lower extremity DVT, on permanent Coumadin therapy, had a cardiac catheterization in October 2017, which showed angiographically normal coronary arteries. Patient states that since Thanksgiving with 4 days prior to his arrival patient has had progressively worsening leg swelling shortness of breath orthopnea. He believes the thanksgiving [place] propably had more salt than normal for him. Patient states he woke up from sleep tonight with inability to breathe. They spoke him sweat and was having chest discomfort. Patient's had occasional chest discomfort last several days mostly with exertion. Patient states his weight is approximate 40 pounds over his dry weight. Patient states it was taken extra torsemide order to help with his shortness of breath as well as his leg swelling. Patient states chest pain is a light pressure sensation is 4 out of 10 in severity but is constant. He denies fevers chills nausea vomiting or diarrhea. During prior hospitalization. EF is noted to be 10-15% and patient has has had extensive dicussion about losing weight. He also is above the weight limit for some work up at out facility PMH: Morbid obesity, chronic systolic heart failure, dilated nonischemic cardiac myopathy, ICD in situ, frequent premature ventricular contractions, hypertension, diabetes, right lower extremity DVT Past History Past Medical History: diabetes, hyperthyroidism, hypertension, hyperlipidemia, other Past Surgical History: Other Social history: no significant social history, Family history: no significant family history Medications and Allergies Allergies Allergy/AdvReac Type Severity Reaction Status Date / Time prochlorperazine Allergy Hives Verified 04/14/18 12:13 [From Compazine] Home Medications Medication Instructions Recorded Confirmed Last Taken Type Torsemide [Demadex] 60 mg PO BID #120 tablet 12/25/18 04/08/19 04/08/19 Rx Aspirin EC [Halfprin EC] 81 mg PO DAILY #30 tablet 01/05/19 04/08/19 04/08/19 Rx AtorvaSTATin [Lipitor] 40 mg PO QHS #60 tablet 01/05/19 04/08/19 04/07/19 Rx Warfarin [Coumadin] 2.5 mg PO DAILY@1700 #30 tablet 01/05/19 04/08/19 04/08/19 Rx Cholecalciferol (Vitamin D3) 50,000 unit PO QWEEK 04/08/19 04/08/19 04/04/19 History [Vitamin D3 50,000UNIT CAP] carvediloL [Coreg] 3.125 mg PO BID 04/08/19 04/08/19 04/08/19 History Lispro Insulin [HumaLOG] 0 unit SUB-Q ACHS units 04/11/19 Unknown Rx Metoprolol Xl [Metoprolol 50 mg PO QDAY tablet 04/11/19 Unknown Rx SUCCINATE ER TAB] Sacubitril/Valsartan [Entresto 1 each PO BID tablet 04/11/19 Unknown Rx 49-51 mg] Spironolactone [Aldactone] 25 mg PO QDAY tablet 04/11/19 Unknown Rx Warfarin [Coumadin] 7.5 mg PO DAILY@1700 tablet 04/11/19 Unknown Rx metFORMIN [Glucophage] 1,000 mg PO BIDDIAB tablet 04/11/19 Unknown Rx oxyCODONE [roxiCODONE] 10 mg PO Q6H PRN tablet 04/11/19 Unknown Rx oxyCODONE [roxiCODONE] 10 mg PO Q6H PRN #8 tablet 04/11/19 Unknown Rx Active Meds: Active Medications Nitroglycerin (Nitrostat) 0.4 mg SL .Q5MIN PRN PRN Reason: Chest Pain Review of Systems All systems: negative Constitutional: weight gain, no fever, no chills, no sweats, no night sweats, no fatigue, no weakness, no malaise, no lethargy Cardiovascular: edema, shortness of breath, dyspnea on exertion, no palpitations Respiratory: cough with sputum Gastrointestinal: no abdominal pain, no nausea, no vomiting, no diarrhea, no constipation, no hematochezia, no early satiety Genitourinary Male: no dysuria, no flank pain Musculoskeletal: no neck stiffness, no shooting arm pain, no low back pain, no muscle weakness, no atrophy Integumentary: no sores, no darkening of skin, no acne Neurological: no paralysis, no numbness, no seizures, no aphasia, no change in mentation Psychiatric: no change in sleep habits, no hypersomnia, no hallucinations, no hopelessness, no irritability Endocrine: no cold intolerance, no excessive thirst, no polydipsia, no weight change, no proptosis, no thyroid mass, no low blood sugars Hematologic/Lymphatic: no easy bruising Allergic/Immunologic: no urticaria Exam - Constitutional Vitals: Temp Pulse Resp BP Pulse Ox 97.9 F 78 16 117/58 94 06/14/19 04:41 06/14/19 07:00 06/14/19 07:00 06/14/19 07:00 06/14/19 07:00 General appearance: Present: mild distress, well-nourished - EENT Eyes: Present: PERRL, EOM intact ENT: hearing intact - Neck Neck: Present: supple, normal ROM - Respiratory Respiratory effort: normal Respiratory: bilateral: diminished - Cardiovascular Rhythm: regular Heart Sounds: Present: S1 & S2, systolic murmur - Extremities Extremities: no ischemia, pulses intact, pulses symmetrical, Full ROM Extremity abnormal: edema Peripheral Pulses: within normal limits - Abdominal General gastrointestinal: Present: soft, non-tender, non-distended, normal bowel sounds - Integumentary Integumentary: Present: clear, warm - Musculoskeletal Musculoskeletal: strength equal bilaterally, generalized weakness - Psychiatric Psychiatric: appropriate mood/affect, intact judgment & insight, cooperative Results - Labs CBC & Chem 7: 06/14/19 05:13 06/14/19 05:13 Labs: Laboratory Last Values WBC 4.9 K/mm3 (4.5-11.0) 06/14/19 05:13 RBC 4.78 M/mm3 (3.65-5.03) 06/14/19 05:13 Hgb 10.9 gm/dl (11.8-15.2) L 06/14/19 05:13 Hct 35.4 % (35.5-45.6) L 06/14/19 05:13 MCV 74 fl (84-94) L 06/14/19 05:13 MCH 23 pg (28-32) L 06/14/19 05:13 MCHC 31 % (32-34) L 06/14/19 05:13 RDW 20.7 % (13.2-15.2) H 06/14/19 05:13 Plt Count 241 K/mm3 (140-440) 06/14/19 05:13 Add Manual Diff Complete 06/14/19 05:13 Total Counted 100 06/14/19 05:13 Seg Neuts % (Manual) 44.0 % (40.0-70.0) 06/14/19 05:13 Band Neutrophils % 0 % 06/14/19 05:13 Lymphocytes % (Manual) 39.0 % (13.4-35.0) H 06/14/19 05:13 Reactive Lymphs % (Man) 2.0 % 06/14/19 05:13 Monocytes % (Manual) 13.0 % (0.0-7.3) H 06/14/19 05:13 Eosinophils % (Manual) 1.0 % (0.0-4.3) 06/14/19 05:13 Basophils % (Manual) 1.0 % (0.0-1.8) 06/14/19 05:13 Metamyelocytes % 0 % 06/14/19 05:13 Myelocytes % 0 % 06/14/19 05:13 Promyelocytes % 0 % 06/14/19 05:13 Blast Cells % 0 % 06/14/19 05:13 Nucleated RBC % 2.0 % (0.0-0.9) H 06/14/19 05:13 Seg Neutrophils # Man 2.2 K/mm3 (1.8-7.7) 06/14/19 05:13 Band Neutrophils # 0.0 K/mm3 06/14/19 05:13 Lymphocytes # (Manual) 1.9 K/mm3 (1.2-5.4) 06/14/19 05:13 Abs React Lymphs (Man) 0.1 K/mm3 06/14/19 05:13 Monocytes # (Manual) 0.6 K/mm3 (0.0-0.8) 06/14/19 05:13 Eosinophils # (Manual) 0.0 K/mm3 (0.0-0.4) 06/14/19 05:13 Basophils # (Manual) 0.0 K/mm3 (0.0-0.1) 06/14/19 05:13 Metamyelocytes # 0.0 K/mm3 06/14/19 05:13 Myelocytes # 0.0 K/mm3 06/14/19 05:13 Promyelocytes # 0.0 K/mm3 06/14/19 05:13 Blast Cells # 0.0 K/mm3 06/14/19 05:13 WBC Morphology Not Reportable 06/14/19 05:13 Hypersegmented Neuts Not Reportable 06/14/19 05:13 Hyposegmented Neuts Not Reportable 06/14/19 05:13 Hypogranular Neuts Not Reportable 06/14/19 05:13 Smudge Cells Not Reportable 06/14/19 05:13 Toxic Granulation Not Reportable 06/14/19 05:13 Toxic Vacuolation Not Reportable 06/14/19 05:13 Dohle Bodies Not Reportable 06/14/19 05:13 Pelger-Huet Anomaly Not Reportable 06/14/19 05:13 Leslie Rods Not Reportable 06/14/19 05:13 Platelet Estimate Consistent w auto 06/14/19 05:13 Clumped Platelets Not Reportable 06/14/19 05:13 Plt Clumps, EDTA Not Reportable 06/14/19 05:13 Large Platelets Not Reportable 06/14/19 05:13 Giant Platelets Not Reportable 06/14/19 05:13 Platelet Satelliting Not Reportable 06/14/19 05:13 Plt Morphology Comment Not Reportable 06/14/19 05:13 RBC Morphology Not Reportable 06/14/19 05:13 Dimorphic RBCs Not Reportable 06/14/19 05:13 Polychromasia Not Reportable 06/14/19 05:13 Hypochromasia 1+ 06/14/19 05:13 Poikilocytosis 1+ 06/14/19 05:13 Anisocytosis 1+ 06/14/19 05:13 Microcytosis Not Reportable 06/14/19 05:13 Macrocytosis Not Reportable 06/14/19 05:13 Spherocytes Not Reportable 06/14/19 05:13 Pappenheimer Bodies Not Reportable 06/14/19 05:13 Sickle Cells Not Reportable 06/14/19 05:13 Target Cells Not Reportable 06/14/19 05:13 Tear Drop Cells Few 06/14/19 05:13 Ovalocytes Few 06/14/19 05:13 Helmet Cells Not Reportable 06/14/19 05:13 [place] Bodies Not Reportable 06/14/19 05:13 [place] Rings Not Reportable 06/14/19 05:13 [place] Cells Not Reportable 06/14/19 05:13 Bite Cells Not Reportable 06/14/19 05:13 Crenated Cell Not Reportable 06/14/19 05:13 Elliptocytes Few 06/14/19 05:13 Acanthocytes (Spur) Not Reportable 06/14/19 05:13 Rouleaux Not Reportable 06/14/19 05:13 Hemoglobin C Crystals Not Reportable 06/14/19 05:13 Schistocytes Not Reportable 06/14/19 05:13 Malaria parasites Not Reportable 06/14/19 05:13 Cliff Bodies Not Reportable 06/14/19 05:13 Hem Pathologist Commnt No 06/14/19 05:13 PT 28.6 Sec. (12.2-14.9) H 06/14/19 05:13 INR 2.76 (0.87-1.13) H 06/14/19 05:13 APTT 37.7 Sec. (24.2-36.6) H 06/14/19 05:13 Sodium 137 mmol/L (137-145) 06/14/19 05:13 Potassium 4.2 mmol/L (3.6-5.0) 06/14/19 05:13 Chloride 101.1 mmol/L (98-107) 06/14/19 05:13 Carbon Dioxide 24 mmol/L (22-30) 06/14/19 05:13 Anion Gap 16 mmol/L 06/14/19 05:13 BUN 43 mg/dL (9-20) H 06/14/19 05:13 Creatinine 1.6 mg/dL (0.8-1.5) H 06/14/19 05:13 Estimated GFR > 60 ml/min 06/14/19 05:13 BUN/Creatinine Ratio 27 % 06/14/19 05:13 Glucose 93 mg/dL (75-100) 06/14/19 05:13 POC Glucose 89 (70-105) 06/14/19 04:55 Calcium 9.1 mg/dL (8.4-10.2) 06/14/19 05:13 Troponin T 0.023 ng/mL (0.00-0.029) 06/14/19 05:13 NT-Pro-B Natriuret Pep 1663 pg/mL (0-450) H 06/14/19 05:13 Assessment and Plan Assessment and plan: Patient is a 34-year-old -[place] male with a history of morbid obesity, chronic systolic heart failure, dilated nonischemic cardiac myopathy, ICD in situ, frequent premature ventricular contractions, hypertension, diabetes, right lower extremity DVT, on permanent Coumadin therapy, had a cardiac catheterization in October 2017, which showed angiographically normal coronary arteries. Patient states that since Thanksgiving with 4 days prior to his arrival patient has had progressively worsening leg swelling shortness of breath orthopnea. He believes the [place] probably had more salt than normal for him. Patient states he woke up from sleep tonight with inability to breathe. They spoke him sweat and was having chest discomfort. Patient's had occasional chest discomfort last several days mostly with exertio n. Patient states his weight is approximate 40 pounds over his dry weight. Patient states it was taken extra torsemide order to help with his shortness of breath as well as his leg swelling. Patient states chest pain is a light pressure sensation is 4 out of 10 in severity but is constant. He denies fevers chills nausea vomiting or diarrhea. During prior hospitalization. EF is noted to be 10-15% and patient has has had extensive dicussion about losing weight. He also is above the weight limit for some work up at out facility Acute combined systolic (congestive) and diastolic (congestive) heart failure Acute on chronic renal insufficiency secondary to vasomotor nephropathy-R/O Cardiorenal syndrom Bilateral lower extremity edema/ Lymphedema Obesity hypoventilation syndrome Secondary Coagulopathy secondary to Coumadin Ventricular tachycardia AICD (automatic cardioverter/defibrillator) present Diabetes mellitus type 2 HTN (hypertension)Essential (primary) hypertension Morbid obesity NICM (nonischemic cardiomyopathy) Plan Admit to Telemetry Consult Cardiology CHF protocol, low salt diet, education, BUmex Continue coumadin Monitor Renal function weight loss counselling DVT/GI Advance Directives: Yes Plan of care discussed with patient/family: Yes
[2019-06-14] MEDS ORDERED: ONDANSETRON 4 MG/2 ML INJ IV PRN (08:10)
[2019-06-14] MEDS ORDERED: ACETAMINOPHEN 325 MG TAB PO PRN (08:10)
[2019-06-14] MEDS ORDERED: NALOXONE 0.4 MG/1 ML INJ IV PRN (08:10)
[2019-06-14] MEDS ORDERED: ALBUTEROL 2.5 MG/3 ML NEBU IH PRN (08:10)
[2019-06-14] MEDS ORDERED: oxyCODONE /ACETAMINOPHEN 5-325MG TAB ONE (09:12)
[2019-06-14] MEDS: oxyCODONE /ACETAMINOPHEN 5-325MG TAB PO PRN ×3 (09:12→23:07)
[2019-06-14 09:34] LABS: Chol/HDL Ratio 1.86 %
[2019-06-14] MEDS ORDERED: NON-FORMULARY EACH (Cholecalciferol (Vitamin D3) [Vitamin D3 50,000unit Cap] 50,000 UNIT) PO SCH (10:00)
[2019-06-14] MEDS ORDERED: carvediloL 12.5 MG TAB PO SCH (10:00)
[2019-06-14] MEDS: ASPIRIN EC 81 MG TAB PO SCH (12:16)
--- NOTE | 2019-06-14 13:05 | Consultation ---
History of Present Illness Consult date: 06/14/19 Requesting physician: KYM CHARLES Consult reason: congestive heart failure History of present illness: The pt is a 34 YO male with a past medical history significant for chronic systolic heart failure, dilated NICMP, AICD in situ ([employer]), frequent PVCs and NSVT, HTN, DM, RLE DVT, anticoagulated with coumadin, morbid obesity, lymphedema. He has been seen by our practice on prior hospitalizations and follows at [facility]. He presented with c/o progressively worsening SOB, orthopnea and BLE swelling which began after eating Thanksgiving dinner (4 days ago). He admits to dietary noncompliance due to Thanksgiving, he reports compliance with his medication regimen. He denies any chest pain, palpitations, n/v, diaphoresis, dizziness or syncope. Pt underwent LHC and RHC at [facility] on 10/24/2017 which showed angiographically normal coronary arteries, normal right-sided filling pressures with a mean RA pressure of 5 mmHg, mildly elevated pulmonary artery pressures with a mean PA pressure of 27 mmHg and PA pressure was 38/16mmHG, mildly elevated left-sided filling pressures with a mean PCWP of 18 mmHg with a directly measured LVEDP of 20 mmHg, normal cardiac output with a CO of 5.74 L/min with a cardiac index of 1.82 L/min/m2 using a the Albaro equation. Echo done 03/03/2019 showed EF 15-20%, LV severely dilated, grade 2 diastolic dysfunction, mild to mod TR, mild to mod MR, mod reduced RV systolic function, RVSP 57mmHg. Pt reports he was recently hospitalized at [facility] records reviewed - Per discharge summary from 05/26/2019, pt was found to have new onset AFlutter at that time and underwent AFlutter ablation on 05/19/2019. He has been in NSR since admission here. Past History Past Medical History: other (as per HPI) Medications and Allergies Allergies Allergy/AdvReac Type Severity Reaction Status Date / Time prochlorperazine Allergy Hives Verified 04/14/18 12:13 [From Compazine] Home Medications Medication Instructions Recorded Confirmed Last Taken Type Torsemide [Demadex] 60 mg PO BID #120 tablet 12/25/18 04/08/19 04/08/19 Rx Aspirin EC [Halfprin EC] 81 mg PO DAILY #30 tablet 01/05/19 04/08/19 04/08/19 Rx AtorvaSTATin [Lipitor] 40 mg PO QHS #60 tablet 01/05/19 04/08/19 04/07/19 Rx Warfarin [Coumadin] 2.5 mg PO DAILY@1700 #30 tablet 01/05/19 04/08/19 04/08/19 Rx Cholecalciferol (Vitamin D3) 50,000 unit PO QWEEK 04/08/19 04/08/19 04/04/19 History [Vitamin D3 50,000UNIT CAP] carvediloL [Coreg] 3.125 mg PO BID 04/08/19 04/08/19 04/08/19 History Lispro Insulin [HumaLOG] 0 unit SUB-Q ACHS units 04/11/19 Unknown Rx Metoprolol Xl [Metoprolol 50 mg PO QDAY tablet 04/11/19 Unknown Rx SUCCINATE ER TAB] Sacubitril/Valsartan [Entresto 1 each PO BID tablet 04/11/19 Unknown Rx 49-51 mg] Spironolactone [Aldactone] 25 mg PO QDAY tablet 04/11/19 Unknown Rx Warfarin [Coumadin] 7.5 mg PO DAILY@1700 tablet 04/11/19 Unknown Rx metFORMIN [Glucophage] 1,000 mg PO BIDDIAB tablet 04/11/19 Unknown Rx oxyCODONE [roxiCODONE] 10 mg PO Q6H PRN tablet 04/11/19 Unknown Rx oxyCODONE [roxiCODONE] 10 mg PO Q6H PRN #8 tablet 04/11/19 Unknown Rx Active Meds: Active Medications Acetaminophen (Tylenol) 650 mg PO Q4H PRN PRN Reason: Pain MILD(1-3)/Fever >100.5/ROBERSON Albuterol (Proventil) 2.5 mg IH Q3HRT PRN PRN Reason: Shortness Of Breath Albuterol/Ipratropium (Duoneb *Not For Prn Use*) 1 ampul IH Q6HRT [facility] Aspirin (Halfprin Ec) 81 mg PO DAILY [facility] Last Admin: 06/14/19 12:16 Dose: 81 mg Documented by: Atorvastatin Calcium (Lipitor) 40 mg PO QHS [facility] Bumetanide (Bumex) 1 mg IV BID@0600,1800 [facility] Carvedilol (Coreg) 3.125 mg PO BID [facility] Miscellaneous Medication (Cholecalciferol (Vitamin D3) [Vitamin D3 50,000unit Cap]) 50,000 unit PO QWEEK [facility] Naloxone HCl (Naloxone) 0.1 mg IV Q2MIN PRN PRN Reason: Res Rate </= 8 or 02 SAT < 92% Nitroglycerin (Nitrostat) 0.4 mg SL .Q5MIN PRN PRN Reason: Chest Pain Ondansetron HCl (Zofran) 4 mg IV Q8H PRN PRN Reason: Nausea And Vomiting Oxycodone HCl (Roxicodone) 10 mg PO Q6HR PRN PRN Reason: Pain, Severe (7-10) Oxycodone/Acetaminophen (Percocet 5/325) 1 tab PO Q6H PRN PRN Reason: Pain, Moderate (4-6) Last Admin: 06/14/19 12:17 Dose: 1 tab Documented by: Sodium Chloride (Sodium Chloride Flush Syringe 10 Ml) 10 ml IV BID [facility] Sodium Chloride (Sodium Chloride Flush Syringe 10 Ml) 10 ml IV PRN PRN PRN Reason: LINE FLUSH Stop: 06/24/19 08:09 Spironolactone (Aldactone) 25 mg PO QDAY [facility] Warfarin Sodium (Coumadin) 2.5 mg PO DAILY@1700 [facility]; Protocol Warfarin Sodium (Coumadin) 7.5 mg PO DAILY@1700 [facility]; Protocol Review of Systems Constitutional: weight gain, no fever, no chills, no sweats Ears, nose, mouth and throat: no ear pain, no nose pain, no sinus pressure, no sinus pain Cardiovascular: orthopnea, edema, shortness of breath, dyspnea on exertion, paroxysmal nocturnal dyspnea, high blood pressure, leg edema, decreased exercise tolerance, no chest pain, no palpitations, no rapid/irregular heart beat, no syncope, no lightheadedness Respiratory: shortness of breath, dyspnea on exertion, no cough, no congestion, no wheezing, no pain on inspiration Gastrointestinal: no abdominal pain, no nausea, no vomiting, no diarrhea, no constipation, no change in bowel habits Genitourinary Male: no dysuria, no hematuria, no flank pain, no discharge, no urinary frequency, no urinary hesitancy Musculoskeletal: no neck stiffness, no neck pain, no shooting arm pain, no arm numbness/tingling, no low back pain, no shooting leg pain Integumentary: no rash, no pruritis, no redness, no sores, no wounds Neurological: no head injury, no paralysis, no weakness, no parathesias, no numbness, no tingling, no seizures, no syncope Psychiatric: no anxiety Endocrine: no cold intolerance, no heat intolerance Hematologic/Lymphatic: no easy bruising, no easy bleeding Allergic/Immunologic: no urticaria, no wheezing Physical Examination Vital Signs Temp Pulse Resp BP Pulse Ox 97.9 F 85 20 136/103 93 06/14/19 04:41 06/14/19 04:41 06/14/19 04:41 06/14/19 04:41 06/14/19 04:41 HEENT: Positive: PERRL, Normocephaly, Mucus Membranes Moist Neck: Positive: neck supple, trachea midline Cardiac: Positive: Reg Rate and Rhythm, S1/S2 Lungs: Positive: Decreased Breath Sounds Neuro: Positive: Grossly Intact Abdomen: Negative: Tender Skin: Negative: Rash Musculoskeletal: No Pain Extremities: Present: +3 Edema (BLE) Results 06/14/19 05:13 06/14/19 05:13 Coagulation 06/14/19 Range/Units 05:13 PT 28.6 H (12.2-14.9) Sec. INR 2.76 H (0.87-1.13) APTT 37.7 H (24.2-36.6) Sec. Lipids 06/14/19 Range/Units 07:48 Triglycerides 55 (2-149) mg/dL Cholesterol 80 (50-199) mg/dL HDL Cholesterol 43 (40-59) mg/dL Cholesterol/HDL Ratio 1.86 % CBC 06/14/19 Range/Units 05:13 WBC 4.9 (4.5-11.0) K/mm3 RBC 4.78 (3.65-5.03) M/mm3 Hgb 10.9 L (11.8-15.2) gm/dl Hct 35.4 L (35.5-45.6) % Plt Count 241 (140-440) K/mm3 Comprehensive Metabolic Panel 06/14/19 Range/Units 05:13 Sodium 137 (137-145) mmol/L Potassium 4.2 (3.6-5.0) mmol/L Chloride 101.1 (98-107) mmol/L Carbon Dioxide 24 (22-30) mmol/L BUN 43 H (9-20) mg/dL Creatinine 1.6 H (0.8-1.5) mg/dL Glucose 93 (75-100) mg/dL Calcium 9.1 (8.4-10.2) mg/dL - Imaging and Cardiology Echo: report reviewed (03/03/2019 showed EF 15-20%, LV severely dilated, grade 2 diastolic dysfunction, mild to mod TR, mild to mod MR, mod reduced RV systolic function, RVSP 57mmHg. ) Cardiac cath: report reviewed (Pt underwent LHC and RHC at [facility] on 10/24/2017 which showed angiographically normal coronary arteries, normal right-sided joel ling pressures with a mean RA pressure of 5 mmHg, mildly elevated pulmonary artery pressures with a mean PA pressure of 27 mmHg and PA pressure was 38/16mmHG, mildly elevated left-sided filling pressures with a mean PCWP of 18 mmHg with a directly measured LVEDP of 20 mmHg, normal cardiac output with a CO of 5.74 L/min with a cardiac index of 1.82 L/min/m2 using a the Albaro equation.) EKG: report reviewed, image reviewed EKG interpretations - Telemetry EKG Rhythm: Sinus Rhythm - EKG Sinus rhythms and dysrhythmias: sinus rhythm Ventricular dysrhythmias: ventricular premature com Assessment and Plan Assessment: Acute on chronic HFrEF Dilated NICMP - EF 10-15% AICD in situ REJI RLE DVT / subtherapeutic INR Frequent PVCs and NSVT LBBB HTN DM Morbid obesity Lymphedema Anemia H/o AFlutter s/p AFlutter ablation on 05/19/2019 Plan: Agree with present cardiac management. Monitor renal indices. Of note, pt reports he was recently hospitalized at [facility]. [facility] records revie wed - Per discharge summary from 05/26/2019, pt was found to have new onset AFlutter during that hospitalization and underwent AFlutter ablation on 05/19/2019. He has been in NSR since admission here. Cont coumadin with tx INR 2- 3. The patient has been seen in conjunction with Dr. Silas Berg who agrees with the assessment and plan of care.
[2019-06-14] MEDS: IPRATROPIUM/ALBUTEROL SULFATE 3 ML AMPUL.NEB IH SCH ×2 (13:10→21:52)
[2019-06-14] MEDS: SPIRONOLACTONE 25 MG TAB PO SCH (14:02)
[2019-06-14] MEDS: carvediloL 3.125 MG TAB PO SCH ×2 (14:02→23:02)
[2019-06-14] MEDS: SACUBITRIL/VALSARTAN 49-51 MG TAB PO SCH ×2 (14:50→23:01)
[2019-06-14] MEDS ORDERED: WARFARIN 7.5 MG TAB PO SCH (17:00)
[2019-06-14] MEDS ORDERED: WARFARIN 2.5 MG TAB PO SCH (17:00)
[2019-06-14] MEDS ORDERED: WARFARIN 10 MG TAB PO SCH (17:00)
[2019-06-14] MEDS: oxyCODONE 5 MG TAB PO PRN (18:13)
[2019-06-14] MEDS: BUMETANIDE 1 MG/4 ML INJ IV SCH (20:05)
[2019-06-15] MEDS: oxyCODONE 5 MG TAB PO PRN ×4 (01:42→23:30)
[2019-06-15] MEDS: IPRATROPIUM/ALBUTEROL SULFATE 3 ML AMPUL.NEB IH SCH ×4 (03:11→21:06)
[2019-06-15 05:42] LABS: Mean Corpuscular HGB Conc 30 % (32-34); Mean Corpuscular Volume 75 fl (84-94); Platelet Count 211 K/mm3 (140-440)
[2019-06-15 05:55] LABS: INR 3.06 (0.87-1.13)
[2019-06-15 06:04] LABS: Calcium 8.6 mg/dL (8.4-10.2)
[2019-06-15 06:20] LABS: Hematocrit 34.4 % (35.5-45.6); Hemoglobin 10.3 gm/dl (11.8-15.2); Red Cell Distribution Width 20.8 % (13.2-15.2)
[2019-06-15] MEDS: BUMETANIDE 1 MG/4 ML INJ IV SCH ×2 (06:29→18:40)
[2019-06-15] MEDS: oxyCODONE /ACETAMINOPHEN 5-325MG TAB PO PRN ×3 (06:33→18:34)
[2019-06-15] MEDS: ASPIRIN EC 81 MG TAB PO SCH (09:45)
[2019-06-15] MEDS: carvediloL 3.125 MG TAB PO SCH ×2 (09:47→22:11)
[2019-06-15] MEDS: SPIRONOLACTONE 25 MG TAB PO SCH (09:48)
[2019-06-15 10:27] LABS: Anisocytosis 1+; Basophils % (Manual) 0 % (0.0-1.8); Hypochromasia 1+; Ovalocytes Few; Target Cells Few; Tear Drop Cells Few; Total Cells Counted 100
[2019-06-15 10:28] LABS: Platelet Estimate Consistent w Auto; Schistocytes Rare
--- NOTE | 2019-06-15 11:01 | Progress Note ---
Assessment and Plan Assessment: Acute on chronic HFrEF Dilated NICMP - EF 10-15% AICD in situ REJI RLE DVT / subtherapeutic INR Frequent PVCs and NSVT LBBB HTN DM Morbid obesity Lymphedema Anemia H/o AFlutter s/p AFlutter ablation on 05/19/2019 Plan: Cont present cardiac management. Monitor renal indices. Pt reports some urinary retention overnight, although he is urinating normally this AM. Further eval per primary. Of note, pt reports he was recently hospitalized at [facility] records reviewed - Per discharge summary from 05/26/2019, pt was found to have new onset AFlutter during that hospitalization and underwent AFlutter ablation on 05/19/2019. He has been in NSR since admission here. Cont coumadin with tx INR 2- 3. The patient has been seen in conjunction with Dr. Silas Berg who agrees with the assessment and plan of care. Subjective Date of service: 06/15/19 Principal diagnosis: HF Interval history: pt resting in bed, no current complaints, BLE edema improving. he c/o some urinary retention overnight. in SR on tele with freq PVCs and NSVT. Objective Last Vital Signs Temp 97.8 F 06/15/19 04:28 Pulse 84 06/15/19 10:36 Resp 18 06/15/19 10:36 BP 105/62 06/15/19 07:58 Pulse Ox 97 06/15/19 10:00 - Physical Examination General: No Apparent Distress HEENT: Positive: PERRL, Normocephaly, Mucus Membranes Moist Neck: Positive: neck supple, trachea midline Cardiac: Positive: Reg Rate and Rhythm, S1/S2 Lungs: Positive: Decreased Breath Sounds Neuro: Positive: Grossly Intact Abdomen: Negative: Tender Skin: Negative: Rash Musculoskeletal: No Pain Extremities: Present: +3 Edema (BLE) - Labs and Meds Coagulation 06/15/19 Range/Units 03:59 PT 31.0 H (12.2-14.9) Sec. INR 3.06 H (0.87-1.13) CBC 06/15/19 Range/Units 03:59 WBC 4.2 L (4.5-11.0) K/mm3 RBC 4.60 (3.65-5.03) M/mm3 Hgb 10.3 L (11.8-15.2) gm/dl Hct 34.4 L (35.5-45.6) % Plt Count 211 (140-440) K/mm3 Comprehensive Metabolic Panel 06/15/19 Range/Units 03:59 Sodium 136 L (137-145) mmol/L Potassium 4.7 (3.6-5.0) mmol/L Chloride 101.0 (98-107) mmol/L Carbon Dioxide 23 (22-30) mmol/L BUN 45 H (9-20) mg/dL Creatinine 1.8 H (0.8-1.5) mg/dL Glucose 94 (75-100) mg/dL Calcium 8.6 (8.4-10.2) mg/dL - Imaging and Cardiology EKG: report reviewed, image reviewed Echo: report reviewed (03/03/2019 showed EF 15-20%, LV severely dilated, grade 2 diastolic dysfunction, mild to mod TR, mild to mod MR, mod reduced RV systolic function, RVSP 57mmHg. ) Cardiac cath: report reviewed (Pt underwent LHC and RHC at [facility] on 10/24/2017 which showed angiographically normal coronary arteries, normal right-sided f illing pressures with a mean RA pressure of 5 mmHg, mildly elevated pulmonary artery pressures with a mean PA pressure of 27 mmHg and PA pressure was 38/16mmHG, mildly elevated left-sided filling pressures with a mean PCWP of 18 mmHg with a directly measured LVEDP of 20 mmHg, normal cardiac output with a CO of 5.74 L/min with a cardiac index of 1.82 L/min/m2 using a the Albaro equation.) - Telemetry EKG Rhythm: Sinus Rhythm - EKG Sinus rhythms and dysrhythmias: sinus rhythm Ventricular dysrhythmias: ventricular premature com
[2019-06-15] MEDS: SACUBITRIL/VALSARTAN 49-51 MG TAB PO SCH ×2 (11:44→22:10)
--- NOTE | 2019-06-15 12:12 | Progress Note ---
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% AICD in situ REJI RLE DVT / subtherapeutic INR Frequent PVCs and NSVT LBBB HTN DM Morbid obesity Lymphedema Anemia H/o AFlutter s/p AFlutter ablation on 05/19/2019 Urinary retention Hospitalist Physical - Constitutional Vitals: Temp Pulse Resp BP Pulse Ox 98.1 F 68 18 117/70 96 06/15/19 11:17 06/15/19 11:31 06/15/19 11:17 06/15/19 11:17 06/15/19 11:17 General appearance: Present: mild distress, well-nourished Results - Labs CBC & Chem 7: 06/15/19 03:59 06/15/19 03:59 Labs: Laboratory Last Values WBC 4.2 K/mm3 (4.5-11.0) L 06/15/19 03:59 RBC 4.60 M/mm3 (3.65-5.03) 06/15/19 03:59 Hgb 10.3 gm/dl (11.8-15.2) L 06/15/19 03:59 Hct 34.4 % (35.5-45.6) L 06/15/19 03:59 MCV 75 fl (84-94) L 06/15/19 03:59 MCH 23 pg (28-32) L 06/15/19 03:59 MCHC 30 % (32-34) L 06/15/19 03:59 RDW 20.8 % (13.2-15.2) H 06/15/19 03:59 Plt Count 211 K/mm3 (140-440) 06/15/19 03:59 Add Manual Diff Complete 06/15/19 03:59 Total Counted 100 06/15/19 03:59 Seg Neuts % (Manual) 50.0 % (40.0-70.0) 06/15/19 03:59 Band Neutrophils % 0 % 06/15/19 03:59 Lymphocytes % (Manual) 43.0 % (13.4-35.0) H 06/15/19 03:59 Reactive Lymphs % (Man) 1.0 % 06/15/19 03:59 Monocytes % (Manual) 3.0 % (0.0-7.3) 06/15/19 03:59 Eosinophils % (Manual) 3.0 % (0.0-4.3) 06/15/19 03:59 Basophils % (Manual) 0 % (0.0-1.8) 06/15/19 03:59 Metamyelocytes % 0 % 06/15/19 03:59 Myelocytes % 0 % 06/15/19 03:59 Promyelocytes % 0 % 06/15/19 03:59 Blast Cells % 0 % 06/15/19 03:59 Nucleated RBC % 2.0 % (0.0-0.9) H 06/15/19 03:59 Seg Neutrophils # Man 2.1 K/mm3 (1.8-7.7) 06/15/19 03:59 Band Neutrophils # 0.0 K/mm3 06/15/19 03:59 Lymphocytes # (Manual) 1.8 K/mm3 (1.2-5.4) 06/15/19 03:59 Abs React Lymphs (Man) 0.0 K/mm3 06/15/19 03:59 Monocytes # (Manual) 0.1 K/mm3 (0.0-0.8) 06/15/19 03:59 Eosinophils # (Manual) 0.1 K/mm3 (0.0-0.4) 06/15/19 03:59 Basophils # (Manual) 0.0 K/mm3 (0.0-0.1) 06/15/19 03:59 Metamyelocytes # 0.0 K/mm3 06/15/19 03:59 Myelocytes # 0.0 K/mm3 06/15/19 03:59 Promyelocytes # 0.0 K/mm3 06/15/19 03:59 Blast Cells # 0.0 K/mm3 06/15/19 03:59 WBC Morphology Not Reportable 06/15/19 03:59 Hypersegmented Neuts Not Reportable 06/15/19 03:59 Hyposegmented Neuts Not Reportable 06/15/19 03:59 Hypogranular Neuts Not Reportable 06/15/19 03:59 Smudge Cells Not Reportable 06/15/19 03:59 Toxic Granulation Not Reportable 06/15/19 03:59 Toxic Vacuolation Not Reportable 06/15/19 03:59 Dohle Bodies Not Reportable 06/15/19 03:59 Pelger-Huet Anomaly Not Reportable 06/15/19 03:59 Leslie Rods Not Reportable 06/15/19 03:59 Platelet Estimate Consistent w auto 06/15/19 03:59 Clumped Platelets Not Reportable 06/15/19 03:59 Plt Clumps, EDTA Not Reportable 06/15/19 03:59 Large Platelets Not Reportable 06/15/19 03:59 Giant Platelets Not Reportable 06/15/19 03:59 Platelet Satelliting Not Reportable 06/15/19 03:59 Plt Morphology Comment Not Reportable 06/15/19 03:59 RBC Morphology Not Reportable 06/15/19 03:59 Dimorphic RBCs Not Reportable 06/15/19 03:59 Polychromasia Not Reportable 06/15/19 03:59 Hypochromasia 1+ 06/15/19 03:59 Poikilocytosis Not Reportable 06/15/19 03:59 Anisocytosis 1+ 06/15/19 03:59 Microcytosis Not Reportable 06/15/19 03:59 Macrocytosis Not Reportable 06/15/19 03:59 Spherocytes Not Reportable 06/15/19 03:59 Pappenheimer Bodies Not Reportable 06/15/19 03:59 Sickle Cells Not Reportable 06/15/19 03:59 Target Cells Few 06/15/19 03:59 Tear Drop Cells Few 06/15/19 03:59 Ovalocytes Few 06/15/19 03:59 Helmet Cells Not Reportable 06/15/19 03:59 [place] Bodies Not Reportable 06/15/19 03:59 [place] Rings Not Reportable 06/15/19 03:59 [place] Cells Not Reportable 06/15/19 03:59 Bite Cells Not Reportable 06/15/19 03:59 Crenated Cell Not Reportable 06/15/19 03:59 Elliptocytes Not Reportable 06/15/19 03:59 Acanthocytes (Spur) Not Reportable 06/15/19 03:59 Rouleaux Not Reportable 06/15/19 03:59 Hemoglobin C Crystals Not Reportable 06/15/19 03:59 Schistocytes Rare 06/15/19 03:59 Malaria parasites Not Reportable 06/15/19 03:59 Cliff Bodies Not Reportable 06/15/19 03:59 Hem Pathologist Commnt No 06/15/19 03:59 PT 31.0 Sec. (12.2-14.9) H 06/15/19 03:59 INR 3.06 (0.87-1.13) H 06/15/19 03:59 APTT 37.7 Sec. (24.2-36.6) H 06/14/19 05:13 Sodium 136 mmol/L (137-145) L 06/15/19 03:59 Potassium 4.7 mmol/L (3.6-5.0) 06/15/19 03:59 Chloride 101.0 mmol/L (98-107) 06/15/19 03:59 Carbon Dioxide 23 mmol/L (22-30) 06/15/19 03:59 Anion Gap 17 mmol/L 06/15/19 03:59 BUN 45 mg/dL (9-20) H 06/15/19 03:59 Creatinine 1.8 mg/dL (0.8-1.5) H 06/15/19 03:59 Estimated GFR 53 ml/min 06/15/19 03:59 BUN/Creatinine Ratio 25 % 06/15/19 03:59 Glucose 94 mg/dL (75-100) 06/15/19 03:59 POC Glucose 136 (70-105) H 06/15/19 11:27 Calcium 8.6 mg/dL (8.4-10.2) 06/15/19 03:59 Troponin T < 0.010 ng/mL (0.00-0.029) 06/14/19 07:48 NT-Pro-B Natriuret Pep 1663 pg/mL (0-450) H 06/14/19 05:13 Triglycerides 55 mg/dL (2-149) 06/14/19 07:48 Cholesterol 80 mg/dL (50-199) 06/14/19 07:48 LDL Cholesterol Direct 32 mg/dL (50-130) L 06/14/19 07:48 HDL Cholesterol 43 mg/dL (40-59) 06/14/19 07:48 Cholesterol/HDL Ratio 1.86 % 06/14/19 07:48 Active Medications - Current Medications Current Medications: Generic Name Dose Route Start Last Admin Trade Name Freq PRN Reason Stop Dose Admin Acetaminophen 650 mg 06/14/19 08:10 Tylenol PO Q4H PRN Pain MILD(1-3)/Fever >100.5/ROBERSON Albuterol 2.5 mg 06/14/19 08:10 Proventil IH Q3HRT PRN Shortness Of Breath Albuterol/Ipratropium 1 ampul 06/14/19 14:00 06/15/19 10:35 Duoneb *Not For Prn Use* IH 1 ampul Q6HRT CODY Administration Aspirin 81 mg 06/14/19 10:00 06/15/19 09:45 Halfprin Ec PO 81 mg DAILY CODY Administration Atorvastatin Calcium 40 mg 06/14/19 22:00 06/14/19 23:02 Lipitor PO 40 mg QHS CODY Administration Bumetanide 1 mg 06/14/19 18:00 06/15/19 06:29 Bumex IV 1 mg BID@0600,1800 COUNTS INCLUDE 234 BEDS AT THE [facility] Administration Carvedilol 3.125 mg 06/14/19 10:00 06/15/19 09:47 Coreg PO 3.125 mg BID CODY Administration Ergocalciferol 50,000 unit 06/21/19 10:00 Vitamin D2 PO Mo COUNTS INCLUDE 234 BEDS AT THE [facility] Naloxone HCl 0.1 mg 06/14/19 08:10 Naloxone IV Q2MIN PRN Res Rate </= 8 or 02 SAT < 92% Nitroglycerin 0.4 mg 06/14/19 05:00 Nitrostat SL .Q5MIN PRN Chest Pain Ondansetron HCl 4 mg 06/14/19 08:10 Zofran IV Q8H PRN Nausea And Vomiting Oxycodone HCl 10 mg 06/14/19 15:00 06/15/19 09:45 Roxicodone PO 10 mg Q6HR PRN Administration Pain, Severe (7-10) Oxycodone/Acetaminophen 1 tab 06/14/19 08:10 06/15/19 11:47 Percocet 5/325 PO 1 tab Q6H PRN Administration Pain, Moderate (4-6) Sodium Chloride 10 ml 06/14/19 10:00 06/15/19 09:50 Sodium Chloride Flush Syringe 10 Ml IV 10 ml BID CODY Administration Sodium Chloride 10 ml 06/14/19 08:10 06/15/19 06:30 Sodium Chloride Flush Syringe 10 Ml IV 06/24/19 08:09 10 ml PRN PRN Administration LINE FLUSH Spironolactone 25 mg 06/14/19 10:00 06/15/19 09:48 Aldactone PO 25 mg QDAY CODY Administration Nutrition/Malnutrition Assess - Dietary Evaluation Nutrition/Malnutrition Findings: Nutrition Notes Start: 06/15/19 11:58 Freq: Status: Active Protocol: Document 06/15/19 11:58 CT (Rec: 06/15/19 12:03 CT [id number]) Co-Sign 06/15/19 11:58 LP Nutrition Notes Need for Assessment generated from: Education Initial or Follow up Brief Note Current Diagnosis Diabetes,Hypertension,Heart Failure Other Pertinent Diagnosis RLE DVT, Bilat LE edema, ARF Current Diet Cardiac consistent CHO Labs/Tests Na 136 BUN 45 Creatinine 1.8 POC Glu 109 Pertinent Medications Bumex Lipitor Coumadin Height 6 ft 1 in Weight 250.8 kg Usual Body Weight 213.188 kg [place] Body Weight (kg) 83.63 BMI 72.9 Intake Prior to Admission Good Weight Status Morbidly Obese Subjective/Other Information Consult for Coumadin and heart failure diet. Pt stated that he has received education for those topics previously and did not want more. Handouts were left for pt to read over. Pt stated that the portions are small, and that he gets hungry in the middle of the night. Ordered double protein for the pt. Burn Absent Trauma Absent GI Symptoms None Current % PO Good (75-100%) Minimum of two criteria No physical signs of malnutrition Nutrition Intervention Anticipated Discharge Needs: Cardiac/consistent CHO Revisit per MD consult or patient Sign Off request:
--- NOTE | 2019-06-15 14:53 | Progress Note ---
Assessment and Plan Assessment and plan: Acute on chronic systolic heart failure with EF 10-15% -AICD in situ -On IV Bumex, Coreg, entresto and aldactone -Cardiology following REJI -probably vasomotor nephropathy v cardiorenal syndrome -on IV diuretics, will monitor creatinine level H/O RLE DVT on anticoagulation with Coumadin -INR level still supratherapeutic -will cont to hold Coumadin and monitor INR level Arrhythmia (Frequent PVCs and NSVT) -Continue Coreg -Continue telemetry monitoring HTN -Controlled on meds DM2 -Stable -On SSI Morbid obesity with BMI of 72.9 -Lifestyle modification recommended Chronic Lymphedema -For outpatient follow-up AOCD -H&H stable H/o A/Flutter -s/p ablation on 05/19/2019 -Heart rate controlled -Home oral anticoagulation on hold due to supratherapeutic INR level Disposition: For discharge when medically stable and cleared by cardiology History Interval history: She had urinary retention overnight but voiding adequately this am. He reports shortness of breath on mild exertion. He denies chest pain. Hospitalist Physical - Constitutional Vitals: Temp Pulse Resp BP Pulse Ox 98.1 F 68 18 117/70 96 06/15/19 11:17 06/15/19 11:31 06/15/19 11:17 06/15/19 11:17 06/15/19 11:17 General appearance: Present: no acute distress, obese - EENT Eyes: Present: PERRL, EOM intact ENT: hearing intact, clear oral mucosa - Neck Neck: Present: supple - Respiratory Respiratory effort: normal Respiratory: bilateral: diminished, rales - Cardiovascular Rhythm: regular Heart Sounds: Present: S1 & S2 - Extremities Extremity abnormal: edema (in BLE) - Abdominal General gastrointestinal: soft, non-tender, normal bowel sounds - Integumentary Integumentary: Present: warm, dry - Psychiatric Psychiatric: appropriate mood/affect - Neurologic Neurologic: moves all extremities Results - Labs CBC & Chem 7: 06/15/19 03:59 06/16/19 03:27 Labs: Laboratory Last Values WBC 4.2 K/mm3 (4.5-11.0) L 06/15/19 03:59 RBC 4.60 M/mm3 (3.65-5.03) 06/15/19 03:59 Hgb 10.3 gm/dl (11.8-15.2) L 06/15/19 03:59 Hct 34.4 % (35.5-45.6) L 06/15/19 03:59 MCV 75 fl (84-94) L 06/15/19 03:59 MCH 23 pg (28-32) L 06/15/19 03:59 MCHC 30 % (32-34) L 06/15/19 03:59 RDW 20.8 % (13.2-15.2) H 06/15/19 03:59 Plt Count 211 K/mm3 (140-440) 06/15/19 03:59 Add Manual Diff Complete 06/15/19 03:59 Total Counted 100 06/15/19 03:59 Seg Neuts % (Manual) 50.0 % (40.0-70.0) 06/15/19 03:59 Band Neutrophils % 0 % 06/15/19 03:59 Lymphocytes % (Manual) 43.0 % (13.4-35.0) H 06/15/19 03:59 Reactive Lymphs % (Man) 1.0 % 06/15/19 03:59 Monocytes % (Manual) 3.0 % (0.0-7.3) 06/15/19 03:59 Eosinophils % (Manual) 3.0 % (0.0-4.3) 06/15/19 03:59 Basophils % (Manual) 0 % (0.0-1.8) 06/15/19 03:59 Metamyelocytes % 0 % 06/15/19 03:59 Myelocytes % 0 % 06/15/19 03:59 Promyelocytes % 0 % 06/15/19 03:59 Blast Cells % 0 % 06/15/19 03:59 Nucleated RBC % 2.0 % (0.0-0.9) H 06/15/19 03:59 Seg Neutrophils # Man 2.1 K/mm3 (1.8-7.7) 06/15/19 03:59 Band Neutrophils # 0.0 K/mm3 06/15/19 03:59 Lymphocytes # (Manual) 1.8 K/mm3 (1.2-5.4) 06/15/19 03:59 Abs React Lymphs (Man) 0.0 K/mm3 06/15/19 03:59 Monocytes # (Manual) 0.1 K/mm3 (0.0-0.8) 06/15/19 03:59 Eosinophils # (Manual) 0.1 K/mm3 (0.0-0.4) 06/15/19 03:59 Basophils # (Manual) 0.0 K/mm3 (0.0-0.1) 06/15/19 03:59 Metamyelocytes # 0.0 K/mm3 06/15/19 03:59 Myelocytes # 0.0 K/mm3 06/15/19 03:59 Promyelocytes # 0.0 K/mm3 06/15/19 03:59 Blast Cells # 0.0 K/mm3 06/15/19 03:59 WBC Morphology Not Reportable 06/15/19 03:59 Hypersegmented Neuts Not Reportable 06/15/19 03:59 Hyposegmented Neuts Not Reportable 06/15/19 03:59 Hypogranular Neuts Not Reportable 06/15/19 03:59 Smudge Cells Not Reportable 06/15/19 03:59 Toxic Granulation Not Reportable 06/15/19 03:59 Toxic Vacuolation Not Reportable 06/15/19 03:59 Dohle Bodies Not Reportable 06/15/19 03:59 Pelger-Huet Anomaly Not Reportable 06/15/19 03:59 Leslie Rods Not Reportable 06/15/19 03:59 Platelet Estimate Consistent w auto 06/15/19 03:59 Clumped Platelets Not Reportable 06/15/19 03:59 Plt Clumps, EDTA Not Reportable 06/15/19 03:59 Large Platelets Not Reportable 06/15/19 03:59 Giant Platelets Not Reportable 06/15/19 03:59 Platelet Satelliting Not Reportable 06/15/19 03:59 Plt Morphology Comment Not Reportable 06/15/19 03:59 RBC Morphology Not Reportable 06/15/19 03:59 Dimorphic RBCs Not Reportable 06/15/19 03:59 Polychromasia Not Reportable 06/15/19 03:59 Hypochromasia 1+ 06/15/19 03:59 Poikilocytosis Not Reportable 06/15/19 03:59 Anisocytosis 1+ 06/15/19 03:59 Microcytosis Not Reportable 06/15/19 03:59 Macrocytosis Not Reportable 06/15/19 03:59 Spherocytes Not Reportable 06/15/19 03:59 Pappenheimer Bodies Not Reportable 06/15/19 03:59 Sickle Cells Not Reportable 06/15/19 03:59 Target Cells Few 06/15/19 03:59 Tear Drop Cells Few 06/15/19 03:59 Ovalocytes Few 06/15/19 03:59 Helmet Cells Not Reportable 06/15/19 03:59 [place] Bodies Not Reportable 06/15/19 03:59 [place] Rings Not Reportable 06/15/19 03:59 [place] Cells Not Reportable 06/15/19 03:59 Bite Cells Not Reportable 06/15/19 03:59 Crenated Cell Not Reportable 06/15/19 03:59 Elliptocytes Not Reportable 06/15/19 03:59 Acanthocytes (Spur) Not Reportable 06/15/19 03:59 Rouleaux Not Reportable 06/15/19 03:59 Hemoglobin C Crystals Not Reportable 06/15/19 03:59 Schistocytes Rare 06/15/19 03:59 Malaria parasites Not Reportable 06/15/19 03:59 Cliff Bodies Not Reportable 06/15/19 03:59 Hem Pathologist Commnt No 06/15/19 03:59 PT 31.0 Sec. (12.2-14.9) H 06/15/19 03:59 INR 3.06 (0.87-1.13) H 06/15/19 03:59 APTT 37.7 Sec. (24.2-36.6) H 06/14/19 05:13 Sodium 136 mmol/L (137-145) L 06/15/19 03:59 Potassium 4.7 mmol/L (3.6-5.0) 06/15/19 03:59 Chloride 101.0 mmol/L (98-107) 06/15/19 03:59 Carbon Dioxide 23 mmol/L (22-30) 06/15/19 03:59 Anion Gap 17 mmol/L 06/15/19 03:59 BUN 45 mg/dL (9-20) H 06/15/19 03:59 Creatinine 1.8 mg/dL (0.8-1.5) H 06/15/19 03:59 Estimated GFR 53 ml/min 06/15/19 03:59 BUN/Creatinine Ratio 25 % 06/15/19 03:59 Glucose 94 mg/dL (75-100) 06/15/19 03:59 POC Glucose 136 (70-105) H 06/15/19 11:27 Calcium 8.6 mg/dL (8.4-10.2) 06/15/19 03:59 Troponin T < 0.010 ng/mL (0.00-0.029) 06/14/19 07:48 NT-Pro-B Natriuret Pep 1663 pg/mL (0-450) H 06/14/19 05:13 Triglycerides 55 mg/dL (2-149) 06/14/19 07:48 Cholesterol 80 mg/dL (50-199) 06/14/19 07:48 LDL Cholesterol Direct 32 mg/dL (50-130) L 06/14/19 07:48 HDL Cholesterol 43 mg/dL (40-59) 06/14/19 07:48 Cholesterol/HDL Ratio 1.86 % 06/14/19 07:48 Active Medications - Current Medications Current Medications: Generic Name Dose Route Start Last Admin Trade Name Freq PRN Reason Stop Dose Admin Acetaminophen 650 mg 06/14/19 08:10 Tylenol PO Q4H PRN Pain MILD(1-3)/Fever >100.5/ROEBRSON Albuterol 2.5 mg 06/14/19 08:10 Proventil IH Q3HRT PRN Shortness Of Breath Albuterol/Ipratropium 1 ampul 06/14/19 14:00 06/15/19 10:35 Duoneb *Not For Prn Use* IH 1 ampul Q6HRT CODY Administration Aspirin 81 mg 06/14/19 10:00 06/15/19 09:45 Halfprin Ec PO 81 mg DAILY CODY Administration Atorvastatin Calcium 40 mg 06/14/19 22:00 06/14/19 23:02 Lipitor PO 40 mg QHS CODY Administration Bumetanide 1 mg 06/14/19 18:00 06/15/19 06:29 Bumex IV 1 mg BID@0600,1800 CODY Administration Carvedilol 3.125 mg 06/14/19 10:00 06/15/19 09:47 Coreg PO 3.125 mg BID CODY Administration Ergocalciferol 50,000 unit 06/21/19 10:00 Vitamin D2 PO Mo CODY Naloxone HCl 0.1 mg 06/14/19 08:10 Naloxone IV Q2MIN PRN Res Rate </= 8 or 02 SAT < 92% Nitroglycerin 0.4 mg 06/14/19 05:00 Nitrostat SL .Q5MIN PRN Chest Pain Ondansetron HCl 4 mg 06/14/19 08:10 Zofran IV Q8H PRN Nausea And Vomiting Oxycodone HCl 10 mg 06/14/19 15:00 06/15/19 09:45 Roxicodone PO 10 mg Q6HR PRN Administration Pain, Severe (7-10) Oxycodone/Acetaminophen 1 tab 06/14/19 08:10 06/15/19 11:47 Percocet 5/325 PO 1 tab Q6H PRN Administration Pain, Moderate (4-6) Sodium Chloride 10 ml 06/14/19 10:00 06/15/19 09:50 Sodium Chloride Flush Syringe 10 Ml IV 10 ml BID CODY Administration Sodium Chloride 10 ml 06/14/19 08:10 06/15/19 06:30 Sodium Chloride Flush Syringe 10 Ml IV 06/24/19 08:09 10 ml PRN PRN Administration LINE FLUSH Spironolactone 25 mg 06/14/19 10:00 06/15/19 09:48 Aldactone PO 25 mg QDAY CODY Administration Nutrition/Malnutrition Assess - Dietary Evaluation Nutrition/Malnutrition Findings: Nutrition Notes Start: 06/15/19 11:58 Freq: Status: Active Protocol: Document 06/15/19 11:58 CT (Rec: 06/15/19 12:03 CT [id number]) Co-Sign 06/15/19 11:58 LP Nutrition Notes Need for Assessment generated from: Education Initial or Follow up Brief Note Current Diagnosis Acute Kidney Injury,Diabetes, Hypertension,Heart Failure Other Pertinent Diagnosis RLE DVT, Bilat LE edema, Current Diet Cardiac consistent CHO Labs/Tests Na 136 BUN 45 Creatinine 1.8 POC Glu 109 Pertinent Medications Bumex Lipitor Coumadin Height 6 ft 1 in Weight 250.8 kg Usual Body Weight 213.188 kg [place] Body Weight (kg) 83.63 BMI 72.9 Intake Prior to Admission Good Weight Status Morbidly Obese Subjective/Other Information Consult for Coumadin and heart failure diet. Pt stated that he has received education for those topics previously and did not want more. Handouts were left for pt to read over. Pt stated that the portions are small, and that he gets hungry in the middle of the night. Ordered double protein for the pt. Burn Absent Trauma Absent GI Symptoms None Current % PO Good (75-100%) Minimum of two criteria No physical signs of malnutrition Nutrition Intervention Anticipated Discharge Needs: Cardiac/consistent CHO Revisit per MD consult or patient Sign Off request:
[2019-06-15] MEDS ORDERED: WARFARIN NO DOSE TODAY PO ONE (17:00)
[2019-06-15] MEDS ORDERED: DEXTROSE 50% IN WATER (25GM) 50 ML SYRINGE IV PRN (17:01)
[2019-06-15] MEDS: INSULIN REGULAR, HUMAN 100 UNITS/1 ML SUB-Q SCH (22:11)
[2019-06-16] MEDS: IPRATROPIUM/ALBUTEROL SULFATE 3 ML AMPUL.NEB IH SCH ×4 (02:16→19:29)
[2019-06-16] MEDS: oxyCODONE /ACETAMINOPHEN 5-325MG TAB PO PRN ×3 (02:37→18:49)
[2019-06-16 04:08] LABS: BUN/Creatinine Ratio 29; Blood Urea Nitrogen 40 mg/dL (9-20); Calcium 8.5 mg/dL (8.4-10.2); Hemolysis Index 15
[2019-06-16] MEDS: BUMETANIDE 1 MG/4 ML INJ IV SCH ×2 (05:49→18:33)
[2019-06-16 06:44] LABS: INR 3.31 (0.87-1.13)
[2019-06-16] MEDS: INSULIN REGULAR, HUMAN 100 UNITS/1 ML SUB-Q SCH ×4 (08:49→21:51)
[2019-06-16] MEDS: oxyCODONE 5 MG TAB PO PRN ×3 (08:53→22:21)
[2019-06-16] MEDS: ASPIRIN EC 81 MG TAB PO SCH (09:56)
[2019-06-16] MEDS: carvediloL 3.125 MG TAB PO SCH ×2 (09:57→21:50)
[2019-06-16] MEDS: SPIRONOLACTONE 25 MG TAB PO SCH (09:57)
[2019-06-16] MEDS: SACUBITRIL/VALSARTAN 49-51 MG TAB PO SCH ×2 (09:58→21:50)
--- NOTE | 2019-06-16 12:26 | Progress Note ---
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 Monitor renal indices. The patient has been seen in conjunction with Dr. Silas Berg who agrees with the assessment and plan of care. Subjective Date of service: 06/16/19 Principal diagnosis: HF Interval history: pt resting in bed, no current complaints, BLE edema improving. in SR on tele with freq PVCs and NSVT. Objective Last Vital Signs Temp 98.2 F 06/16/19 07:49 Pulse 73 06/16/19 09:57 Resp 18 06/16/19 07:49 BP 134/85 06/16/19 09:57 Pulse Ox 93 06/16/19 03:48 - Physical Examination General: No Apparent Distress HEENT: Positive: PERRL, Normocephaly, Mucus Membranes Moist Neck: Positive: neck supple, trachea midline Cardiac: Positive: Reg Rate and Rhythm, S1/S2 Lungs: Positive: Decreased Breath Sounds Neuro: Positive: Grossly Intact Abdomen: Negative: Tender Skin: Negative: Rash Musculoskeletal: No Pain Extremities: Present: +3 Edema (BLE) - Labs and Meds Coagulation 06/16/19 Range/Units 05:58 PT 32.9 H (12.2-14.9) Sec. INR 3.31 H (0.87-1.13) Comprehensive Metabolic Panel 06/16/19 Range/Units 03:27 Sodium 132 L (137-145) mmol/L Potassium 4.4 (3.6-5.0) mmol/L Chloride 99.8 (98-107) mmol/L Carbon Dioxide 24 (22-30) mmol/L BUN 40 H (9-20) mg/dL Creatinine 1.4 (0.8-1.5) mg/dL Glucose 119 H (75-100) mg/dL Calcium 8.5 (8.4-10.2) mg/dL - Imaging and Cardiology EKG: report reviewed, image reviewed Echo: report reviewed (03/03/2019 showed EF 15-20%, LV severely dilated, grade 2 diastolic dysfunction, mild to mod TR, mild to mod MR, mod reduced RV systolic function, RVSP 57mmHg. ) Cardiac cath: report reviewed (Pt underwent LHC and RHC at [place] on 10/24/2017 which showed angiographically normal coronary arteries, normal right-sided filling pressures with a mean RA pressure of 5 mmHg, mildly elevated pulmonary artery pressures with a mean PA pressure of 27 mmHg and PA pressure was 38/16mmHG, mildly elevated left-sided filling pressures with a mean PCWP of 18 mmHg with a directly measured LVEDP of 20 mmHg, normal cardiac output with a CO of 5.74 L/min with a cardiac index of 1.82 L/min/m2 using a the Albaro equation.) - EKG Sinus rhythms and dysrhythmias: sinus rhythm Ventricular dysrhythmias: ventricular premature com
--- NOTE | 2019-06-16 13:12 | Progress Note ---
Assessment and Plan Assessment and plan: Acute on chronic systolic heart failure with EF 10-15% -AICD in situ -On CHF protocol -Improving, continue IV Bumex, Coreg, entresto and aldactone -Cardiology following REJI -probably vasomotor nephropathy v cardiorenal syndrome -on IV diuretics, will monitor creatinine level H/O RLE DVT on anticoagulation with Coumadin -INR level still supratherapeutic -will cont to hold Coumadin and monitor INR level Arrhythmia (Frequent PVCs and NSVT) -Continue Coreg -Continue telemetry monitoring Hyponatremia -On oral fluid restriction, will monitor sodium level HTN -Controlled on meds DM2 -Stable -On SSI Morbid obesity with BMI of 72.9 -Lifestyle modification recommended Chronic Lymphedema -For outpatient follow-up AOCD -H&H stable H/o A/Flutter -s/p ablation on 05/19/2019 -Heart rate controlled Disposition: For discharge when medically stable and cleared by cardiology History Interval history: Pt reported poor sleep. His shortness of breath has improved. Hospitalist Physical - Constitutional Vitals: Temp Pulse Resp BP Pulse Ox 98.2 F 73 18 134/85 93 06/16/19 07:49 06/16/19 09:57 06/16/19 07:49 06/16/19 09:57 06/16/19 03:48 General appearance: Present: no acute distress, obese - EENT Eyes: Present: PERRL, EOM intact ENT: hearing intact, clear oral mucosa - Neck Neck: Present: supple - Respiratory Respiratory effort: normal Respiratory: bilateral: diminished, rales - Cardiovascular Rhythm: regular Heart Sounds: Present: S1 & S2 - Extremities Extremity abnormal: edema (in BLE) - Abdominal General gastrointestinal: soft, non-tender, normal bowel sounds - Integumentary Integumentary: Present: warm, dry - Psychiatric Psychiatric: appropriate mood/affect - Neurologic Neurologic: moves all extremities Results - Labs CBC & Chem 7: 06/15/19 03:59 06/16/19 03:27 Labs: Laboratory Last Values WBC 4.2 K/mm3 (4.5-11.0) L 06/15/19 03:59 RBC 4.60 M/mm3 (3.65-5.03) 06/15/19 03:59 Hgb 10.3 gm/dl (11.8-15.2) L 06/15/19 03:59 Hct 34.4 % (35.5-45.6) L 06/15/19 03:59 MCV 75 fl (84-94) L 06/15/19 03:59 MCH 23 pg (28-32) L 06/15/19 03:59 MCHC 30 % (32-34) L 06/15/19 03:59 RDW 20.8 % (13.2-15.2) H 06/15/19 03:59 Plt Count 211 K/mm3 (140-440) 06/15/19 03:59 Add Manual Diff Complete 06/15/19 03:59 Total Counted 100 06/15/19 03:59 Seg Neuts % (Manual) 50.0 % (40.0-70.0) 06/15/19 03:59 Band Neutrophils % 0 % 06/15/19 03:59 Lymphocytes % (Manual) 43.0 % (13.4-35.0) H 06/15/19 03:59 Reactive Lymphs % (Man) 1.0 % 06/15/19 03:59 Monocytes % (Manual) 3.0 % (0.0-7.3) 06/15/19 03:59 Eosinophils % (Manual) 3.0 % (0.0-4.3) 06/15/19 03:59 Basophils % (Manual) 0 % (0.0-1.8) 06/15/19 03:59 Metamyelocytes % 0 % 06/15/19 03:59 Myelocytes % 0 % 06/15/19 03:59 Promyelocytes % 0 % 06/15/19 03:59 Blast Cells % 0 % 06/15/19 03:59 Nucleated RBC % 2.0 % (0.0-0.9) H 06/15/19 03:59 Seg Neutrophils # Man 2.1 K/mm3 (1.8-7.7) 06/15/19 03:59 Band Neutrophils # 0.0 K/mm3 06/15/19 03:59 Lymphocytes # (Manual) 1.8 K/mm3 (1.2-5.4) 06/15/19 03:59 Abs React Lymphs (Man) 0.0 K/mm3 06/15/19 03:59 Monocytes # (Manual) 0.1 K/mm3 (0.0-0.8) 06/15/19 03:59 Eosinophils # (Manual) 0.1 K/mm3 (0.0-0.4) 06/15/19 03:59 Basophils # (Manual) 0.0 K/mm3 (0.0-0.1) 06/15/19 03:59 Metamyelocytes # 0.0 K/mm3 06/15/19 03:59 Myelocytes # 0.0 K/mm3 06/15/19 03:59 Promyelocytes # 0.0 K/mm3 06/15/19 03:59 Blast Cells # 0.0 K/mm3 06/15/19 03:59 WBC Morphology Not Reportable 06/15/19 03:59 Hypersegmented Neuts Not Reportable 06/15/19 03:59 Hyposegmented Neuts Not Reportable 06/15/19 03:59 Hypogranular Neuts Not Reportable 06/15/19 03:59 Smudge Cells Not Reportable 06/15/19 03:59 Toxic Granulation Not Reportable 06/15/19 03:59 Toxic Vacuolation Not Reportable 06/15/19 03:59 Dohle Bodies Not Reportable 06/15/19 03:59 Pelger-Huet Anomaly Not Reportable 06/15/19 03:59 Leslie Rods Not Reportable 06/15/19 03:59 Platelet Estimate Consistent w auto 06/15/19 03:59 Clumped Platelets Not Reportable 06/15/19 03:59 Plt Clumps, EDTA Not Reportable 06/15/19 03:59 Large Platelets Not Reportable 06/15/19 03:59 Giant Platelets Not Reportable 06/15/19 03:59 Platelet Satelliting Not Reportable 06/15/19 03:59 Plt Morphology Comment Not Reportable 06/15/19 03:59 RBC Morphology Not Reportable 06/15/19 03:59 Dimorphic RBCs Not Reportable 06/15/19 03:59 Polychromasia Not Reportable 06/15/19 03:59 Hypochromasia 1+ 06/15/19 03:59 Poikilocytosis Not Reportable 06/15/19 03:59 Anisocytosis 1+ 06/15/19 03:59 Microcytosis Not Reportable 06/15/19 03:59 Macrocytosis Not Reportable 06/15/19 03:59 Spherocytes Not Reportable 06/15/19 03:59 Pappenheimer Bodies Not Reportable 06/15/19 03:59 Sickle Cells Not Reportable 06/15/19 03:59 Target Cells Few 06/15/19 03:59 Tear Drop Cells Few 06/15/19 03:59 Ovalocytes Few 06/15/19 03:59 Helmet Cells Not Reportable 06/15/19 03:59 [place] Bodies Not Reportable 06/15/19 03:59 [place] Rings Not Reportable 06/15/19 03:59 [place] Cells Not Reportable 06/15/19 03:59 Bite Cells Not Reportable 06/15/19 03:59 Crenated Cell Not Reportable 06/15/19 03:59 Elliptocytes Not Reportable 06/15/19 03:59 Acanthocytes (Spur) Not Reportable 06/15/19 03:59 Rouleaux Not Reportable 06/15/19 03:59 Hemoglobin C Crystals Not Reportable 06/15/19 03:59 Schistocytes Rare 06/15/19 03:59 Malaria parasites Not Reportable 06/15/19 03:59 Cliff Bodies Not Reportable 06/15/19 03:59 Hem Pathologist Commnt No 06/15/19 03:59 PT 32.9 Sec. (12.2-14.9) H 06/16/19 05:58 INR 3.31 (0.87-1.13) H 06/16/19 05:58 APTT 37.7 Sec. (24.2-36.6) H 06/14/19 05:13 Sodium 132 mmol/L (137-145) L 06/16/19 03:27 Potassium 4.4 mmol/L (3.6-5.0) 06/16/19 03:27 Chloride 99.8 mmol/L (98-107) 06/16/19 03:27 Carbon Dioxide 24 mmol/L (22-30) 06/16/19 03:27 Anion Gap 13 mmol/L 06/16/19 03:27 BUN 40 mg/dL (9-20) H 06/16/19 03:27 Creatinine 1.4 mg/dL (0.8-1.5) 06/16/19 03:27 Estimated GFR > 60 ml/min 06/16/19 03:27 BUN/Creatinine Ratio 29 % 06/16/19 03:27 Glucose 119 mg/dL (75-100) H 06/16/19 03:27 POC Glucose 92 (70-105) 06/16/19 11:41 Calcium 8.5 mg/dL (8.4-10.2) 06/16/19 03:27 Troponin T < 0.010 ng/mL (0.00-0.029) 06/14/19 07:48 NT-Pro-B Natriuret Pep 1663 pg/mL (0-450) H 06/14/19 05:13 Triglycerides 55 mg/dL (2-149) 06/14/19 07:48 Cholesterol 80 mg/dL (50-199) 06/14/19 07:48 LDL Cholesterol Direct 32 mg/dL (50-130) L 06/14/19 07:48 HDL Cholesterol 43 mg/dL (40-59) 06/14/19 07:48 Cholesterol/HDL Ratio 1.86 % 06/14/19 07:48 Active Medications - Current Medications Current Medications: Generic Name Dose Route Start Last Admin Trade Name Freq PRN Reason Stop Dose Admin Acetaminophen 650 mg 06/14/19 08:10 Tylenol PO Q4H PRN Pain MILD(1-3)/Fever >100.5/ROBERSON Albuterol 2.5 mg 06/14/19 08:10 Proventil IH Q3HRT PRN Shortness Of Breath Albuterol/Ipratropium 1 ampul 06/14/19 14:00 06/16/19 08:04 Duoneb *Not For Prn Use* IH 1 ampul Q6HRT [facility] Administration Aspirin 81 mg 06/14/19 10:00 06/16/19 09:56 Halfprin Ec PO 81 mg DAILY [facility] Administration Atorvastatin Calcium 40 mg 06/14/19 22:00 06/15/19 22:11 Lipitor PO 40 mg QHS [facility] Administration Bumetanide 1 mg 06/14/19 18:00 06/16/19 05:49 Bumex IV 1 mg BID@0600,1800 [facility] Administration Carvedilol 3.125 mg 06/14/19 10:00 06/16/19 09:57 Coreg PO 3.125 mg BID [facility] Administration Dextrose 50 ml 06/15/19 17:01 D50w (25gm) Syringe IV Q30MIN PRN Hypoglycemia Protocol Ergocalciferol 50,000 unit 06/21/19 10:00 Vitamin D2 PO Mo [facility] Insulin Human Regular 0 units 06/15/19 22:00 06/16/19 08:49 Humulin R SUB-Q Not Given ACHS [facility] Protocol Naloxone HCl 0.1 mg 06/14/19 08:10 Naloxone IV Q2MIN PRN Res Rate </= 8 or 02 SAT < 92% Nitroglycerin 0.4 mg 06/14/19 05:00 Nitrostat SL .Q5MIN PRN Chest Pain Ondansetron HCl 4 mg 06/14/19 08:10 Zofran IV Q8H PRN Nausea And Vomiting Oxycodone HCl 10 mg 06/14/19 15:00 06/16/19 08:53 Roxicodone PO 10 mg Q6HR PRN Administration Pain, Severe (7-10) Oxycodone/Acetaminophen 1 tab 06/14/19 08:10 06/16/19 11:44 Percocet 5/325 PO 1 tab Q6H PRN Administration Pain, Moderate (4-6) Sodium Chloride 10 ml 06/14/19 10:00 06/16/19 09:56 Sodium Chloride Flush Syringe 10 Ml IV 10 ml BID [facility] Administration Sodium Chloride 10 ml 06/14/19 08:10 06/15/19 06:30 Sodium Chloride Flush Syringe 10 Ml IV 06/24/19 08:09 10 ml PRN PRN Administration LINE FLUSH Spironolactone 25 mg 06/14/19 10:00 06/16/19 09:57 Aldactone PO 25 mg QDAY [facility] Administration Nutrition/Malnutrition Assess - Dietary Evaluation Nutrition/Malnutrition Findings: Nutrition Notes Start: 06/15/19 11:58 Freq: Status: Active Protocol: Document 06/15/19 11:58 CT (Rec: 06/15/19 12:03 CT [id number]) Co-Sign 06/15/19 11:58 LP Nutrition Notes Need for Assessment generated from: Education Initial or Follow up Brief Note Current Diagnosis Acute Kidney Injury,Diabetes, Hypertension,Heart Failure Other Pertinent Diagnosis RLE DVT, Bilat LE edema, Current Diet Cardiac consistent CHO Labs/Tests Na 136 BUN 45 Creatinine 1.8 POC Glu 109 Pertinent Medications Bumex Lipitor Coumadin Height 6 ft 1 in Weight 250.8 kg Usual Body Weight 213.188 kg [place] Body Weight (kg) 83.63 BMI 72.9 Intake Prior to Admission Good Weight Status Morbidly Obese Subjective/Other Information Consult for Coumadin and heart failure diet. Pt stated that he has received education for those topics previously and did not want more. Handouts were left for pt to read over. Pt stated that the portions are small, and that he gets hungry in the middle of the night. Ordered double protein for the pt. Burn Absent Trauma Absent GI Symptoms None Current % PO Good (75-100%) Minimum of two criteria No physical signs of malnutrition Nutrition Intervention Anticipated Discharge Needs: Cardiac/consistent CHO Revisit per MD consult or patient Sign Off request:
[2019-06-16] MEDS ORDERED: WARFARIN NO DOSE TODAY PO ONE (17:00)
[2019-06-17] MEDS: oxyCODONE /ACETAMINOPHEN 5-325MG TAB PO PRN ×3 (01:03→17:25)
[2019-06-17] MEDS: IPRATROPIUM/ALBUTEROL SULFATE 3 ML AMPUL.NEB IH SCH ×4 (03:00→20:24)
[2019-06-17] MEDS: oxyCODONE 5 MG TAB PO PRN ×3 (04:28→21:05)
[2019-06-17 05:38] LABS: INR 2.54 (0.87-1.13)
[2019-06-17 05:43] LABS: BUN/Creatinine Ratio 25; Blood Urea Nitrogen 35 mg/dL (9-20); Calcium 8.7 mg/dL (8.4-10.2); Hemolysis Index 39
[2019-06-17] MEDS: BUMETANIDE 1 MG/4 ML INJ IV SCH ×2 (06:10→17:40)
[2019-06-17] MEDS: INSULIN REGULAR, HUMAN 100 UNITS/1 ML SUB-Q SCH ×4 (08:00→21:09)
[2019-06-17] MEDS: ASPIRIN EC 81 MG TAB PO SCH (09:25)
[2019-06-17] MEDS: SACUBITRIL/VALSARTAN 49-51 MG TAB PO SCH ×2 (09:25→21:04)
[2019-06-17] MEDS: SPIRONOLACTONE 25 MG TAB PO SCH (09:27)
[2019-06-17] MEDS: carvediloL 3.125 MG TAB PO SCH ×2 (09:27→21:03)
--- NOTE | 2019-06-17 10:08 | Progress Note ---
Assessment and Plan Assessment: Acute on chronic HFrEF Dilated NICMP - EF 10-15% AICD in situ REJI RLE DVT / subtherapeutic INR Frequent PVCs and NSVT LBBB HTN DM Morbid obesity Lymphedema Anemia H/o AFlutter s/p AFlutter ablation on 05/19/2019 - anticoagulated on coumadin Plan: Add zaroxolyn today for additional diuresis. Monitor renal indices. The patient has been seen in conjunction with Dr. Silas Berg who agrees with the assessment and plan of care. Subjective Date of service: 06/17/19 Principal diagnosis: HF Interval history: pt resting in bed, no current complaints, BLE edema improving. in SR on tele with freq PVCs and NSVT. Objective Last Vital Signs Temp 97.9 F 06/17/19 08:34 Pulse 74 06/17/19 09:27 Resp 17 06/17/19 09:25 BP 110/75 06/17/19 09:27 Pulse Ox 94 06/17/19 08:34 - Physical Examination General: No Apparent Distress HEENT: Positive: PERRL, Normocephaly, Mucus Membranes Moist Neck: Positive: neck supple, trachea midline Cardiac: Positive: Reg Rate and Rhythm, S1/S2 Lungs: Positive: Decreased Breath Sounds Neuro: Positive: Grossly Intact Abdomen: Negative: Tender Skin: Negative: Rash Musculoskeletal: No Pain Extremities: Present: +3 Edema (BLE) - Labs and Meds Coagulation 06/17/19 Range/Units 04:12 PT 26.8 H (12.2-14.9) Sec. INR 2.54 H (0.87-1.13) Comprehensive Metabolic Panel 06/17/19 Range/Units 04:12 Sodium 135 L (137-145) mmol/L Potassium 4.9 (3.6-5.0) mmol/L Chloride 99.6 (98-107) mmol/L Carbon Dioxide 27 (22-30) mmol/L BUN 35 H (9-20) mg/dL Creatinine 1.4 (0.8-1.5) mg/dL Glucose 88 (75-100) mg/dL Calcium 8.7 (8.4-10.2) mg/dL - Imaging and Cardiology EKG: report reviewed, image reviewed Echo: report reviewed (03/03/2019 showed EF 15-20%, LV severely dilated, grade 2 diastolic dysfunction, mild to mod TR, mild to mod MR, mod reduced RV systolic function, RVSP 57mmHg. ) Cardiac cath: report reviewed (Pt underwent LHC and RHC at [facility] on 10/24/2017 which showed angiographically normal coronary arteries, normal right-sided filling pressures with a mean RA pressure of 5 mmHg, mildly elevated pulmonary artery pressures with a mean PA pressure of 27 mmHg and PA pressure was 38/16mmHG, mildly elevated left-sided filling pressures with a mean PCWP of 18 mmHg with a directly measured LVEDP of 20 mmHg, normal cardiac output with a CO of 5.74 L/min with a cardiac index of 1.82 L/min/m2 using a the Albaro equation.) - EKG Sinus rhythms and dysrhythmias: sinus rhythm Ventricular dysrhythmias: ventricular premature com
[2019-06-17] MEDS: metOLazone 5 MG TAB PO SCH (11:10)
--- NOTE | 2019-06-17 13:35 | Progress Note ---
Assessment and Plan Assessment and plan: Acute on chronic systolic heart failure with EF 10-15% -AICD in situ -On CHF protocol -Improving, continue IV Bumex, Coreg, entresto and aldactone -Cardiology following REJI -Probably cardiorenal syndrome -Improving on IV diuretics, will monitor creatinine level H/O RLE DVT on anticoagulation with Coumadin -INR level trended down -Coumadin resumed, will monitor INR level Arrhythmia (Frequent PVCs and NSVT) -Continue Coreg -Continue telemetry monitoring Hyponatremia -Improving -Cont oral fluid restriction, will monitor sodium level HTN -Controlled on meds DM2 -Stable -On SSI Chronic Lymphedema -For outpatient follow-up AOCD -H&H stable H/o A/Flutter -s/p ablation on 05/19/2019 -Heart rate controlled Chronic respiratory failure with hypoxia -Continue oxygen supplementation as needed -On home oxygen, 2 L Morbid obesity with BMI of 72.9 -Lifestyle modification recommended Obesity hypoventilation syndrome/Suspected CAITLYN -Outpatient sleep study recommended Disposition: For discharge when medically stable and cleared by cardiology History Interval history: She reports feeling a little better. His sob has improved. He denies chest janee n. Hospitalist Physical - Constitutional Vitals: Temp Pulse Resp BP Pulse Ox 98.2 F 55 L 18 101/82 98 06/17/19 11:33 06/17/19 11:33 06/17/19 12:53 06/17/19 11:33 06/17/19 11:33 General appearance: Present: no acute distress, obese - EENT Eyes: Present: PERRL, EOM intact ENT: hearing intact, clear oral mucosa - Neck Neck: Present: supple - Respiratory Respiratory effort: normal Respiratory: bilateral: diminished, rales (bibasilar lungs) - Cardiovascular Rhythm: regular Heart Sounds: Present: S1 & S2 - Extremities Extremity abnormal: edema (in BLE) - Abdominal General gastrointestinal: soft, non-tender, normal bowel sounds - Integumentary Integumentary: Present: warm, dry - Psychiatric Psychiatric: cooperative - Neurologic Neurologic: moves all extremities Results - Labs CBC & Chem 7: 06/15/19 03:59 06/17/19 04:12 Labs: Laboratory Last Values WBC 4.2 K/mm3 (4.5-11.0) L 06/15/19 03:59 RBC 4.60 M/mm3 (3.65-5.03) 06/15/19 03:59 Hgb 10.3 gm/dl (11.8-15.2) L 06/15/19 03:59 Hct 34.4 % (35.5-45.6) L 06/15/19 03:59 MCV 75 fl (84-94) L 06/15/19 03:59 MCH 23 pg (28-32) L 06/15/19 03:59 MCHC 30 % (32-34) L 06/15/19 03:59 RDW 20.8 % (13.2-15.2) H 06/15/19 03:59 Plt Count 211 K/mm3 (140-440) 06/15/19 03:59 Add Manual Diff Complete 06/15/19 03:59 Total Counted 100 06/15/19 03:59 Seg Neuts % (Manual) 50.0 % (40.0-70.0) 06/15/19 03:59 Band Neutrophils % 0 % 06/15/19 03:59 Lymphocytes % (Manual) 43.0 % (13.4-35.0) H 06/15/19 03:59 Reactive Lymphs % (Man) 1.0 % 06/15/19 03:59 Monocytes % (Manual) 3.0 % (0.0-7.3) 06/15/19 03:59 Eosinophils % (Manual) 3.0 % (0.0-4.3) 06/15/19 03:59 Basophils % (Manual) 0 % (0.0-1.8) 06/15/19 03:59 Metamyelocytes % 0 % 06/15/19 03:59 Myelocytes % 0 % 06/15/19 03:59 Promyelocytes % 0 % 06/15/19 03:59 Blast Cells % 0 % 06/15/19 03:59 Nucleated RBC % 2.0 % (0.0-0.9) H 06/15/19 03:59 Seg Neutrophils # Man 2.1 K/mm3 (1.8-7.7) 06/15/19 03:59 Band Neutrophils # 0.0 K/mm3 06/15/19 03:59 Lymphocytes # (Manual) 1.8 K/mm3 (1.2-5.4) 06/15/19 03:59 Abs React Lymphs (Man) 0.0 K/mm3 06/15/19 03:59 Monocytes # (Manual) 0.1 K/mm3 (0.0-0.8) 06/15/19 03:59 Eosinophils # (Manual) 0.1 K/mm3 (0.0-0.4) 06/15/19 03:59 Basophils # (Manual) 0.0 K/mm3 (0.0-0.1) 06/15/19 03:59 Metamyelocytes # 0.0 K/mm3 06/15/19 03:59 Myelocytes # 0.0 K/mm3 06/15/19 03:59 Promyelocytes # 0.0 K/mm3 06/15/19 03:59 Blast Cells # 0.0 K/mm3 06/15/19 03:59 WBC Morphology Not Reportable 06/15/19 03:59 Hypersegmented Neuts Not Reportable 06/15/19 03:59 Hyposegmented Neuts Not Reportable 06/15/19 03:59 Hypogranular Neuts Not Reportable 06/15/19 03:59 Smudge Cells Not Reportable 06/15/19 03:59 Toxic Granulation Not Reportable 06/15/19 03:59 Toxic Vacuolation Not Reportable 06/15/19 03:59 Dohle Bodies Not Reportable 06/15/19 03:59 Pelger-Huet Anomaly Not Reportable 06/15/19 03:59 Leslie Rods Not Reportable 06/15/19 03:59 Platelet Estimate Consistent w auto 06/15/19 03:59 Clumped Platelets Not Reportable 06/15/19 03:59 Plt Clumps, EDTA Not Reportable 06/15/19 03:59 Large Platelets Not Reportable 06/15/19 03:59 Giant Platelets Not Reportable 06/15/19 03:59 Platelet Satelliting Not Reportable 06/15/19 03:59 Plt Morphology Comment Not Reportable 06/15/19 03:59 RBC Morphology Not Reportable 06/15/19 03:59 Dimorphic RBCs Not Reportable 06/15/19 03:59 Polychromasia Not Reportable 06/15/19 03:59 Hypochromasia 1+ 06/15/19 03:59 Poikilocytosis Not Reportable 06/15/19 03:59 Anisocytosis 1+ 06/15/19 03:59 Microcytosis Not Reportable 06/15/19 03:59 Macrocytosis Not Reportable 06/15/19 03:59 Spherocytes Not Reportable 06/15/19 03:59 Pappenheimer Bodies Not Reportable 06/15/19 03:59 Sickle Cells Not Reportable 06/15/19 03:59 Target Cells Few 06/15/19 03:59 Tear Drop Cells Few 06/15/19 03:59 Ovalocytes Few 06/15/19 03:59 Helmet Cells Not Reportable 06/15/19 03:59 [place] Bodies Not Reportable 06/15/19 03:59 [place] Rings Not Reportable 06/15/19 03:59 [place] Cells Not Reportable 06/15/19 03:59 Bite Cells Not Reportable 06/15/19 03:59 Crenated Cell Not Reportable 06/15/19 03:59 Elliptocytes Not Reportable 06/15/19 03:59 Acanthocytes (Spur) Not Reportable 06/15/19 03:59 Rouleaux Not Reportable 06/15/19 03:59 Hemoglobin C Crystals Not Reportable 06/15/19 03:59 Schistocytes Rare 06/15/19 03:59 Malaria parasites Not Reportable 06/15/19 03:59 Cliff Bodies Not Reportable 06/15/19 03:59 Hem Pathologist Commnt No 06/15/19 03:59 PT 26.8 Sec. (12.2-14.9) H 06/17/19 04:12 INR 2.54 (0.87-1.13) H 06/17/19 04:12 APTT 37.7 Sec. (24.2-36.6) H 06/14/19 05:13 Sodium 135 mmol/L (137-145) L 06/17/19 04:12 Potassium 4.9 mmol/L (3.6-5.0) 06/17/19 04:12 Chloride 99.6 mmol/L (98-107) 06/17/19 04:12 Carbon Dioxide 27 mmol/L (22-30) 06/17/19 04:12 Anion Gap 13 mmol/L 06/17/19 04:12 BUN 35 mg/dL (9-20) H 06/17/19 04:12 Creatinine 1.4 mg/dL (0.8-1.5) 06/17/19 04:12 Estimated GFR > 60 ml/min 06/17/19 04:12 BUN/Creatinine Ratio 25 % 06/17/19 04:12 Glucose 88 mg/dL (75-100) 06/17/19 04:12 POC Glucose 103 (70-105) 06/17/19 11:43 Calcium 8.7 mg/dL (8.4-10.2) 06/17/19 04:12 Magnesium 2.20 mg/dL (1.7-2.3) 06/17/19 04:12 Troponin T < 0.010 ng/mL (0.00-0.029) 06/14/19 07:48 NT-Pro-B Natriuret Pep 1663 pg/mL (0-450) H 06/14/19 05:13 Triglycerides 55 mg/dL (2-149) 06/14/19 07:48 Cholesterol 80 mg/dL (50-199) 06/14/19 07:48 LDL Cholesterol Direct 32 mg/dL (50-130) L 06/14/19 07:48 HDL Cholesterol 43 mg/dL (40-59) 06/14/19 07:48 Cholesterol/HDL Ratio 1.86 % 06/14/19 07:48 Active Medications - Current Medications Current Medications: Generic Name Dose Route Start Last Admin Trade Name Freq PRN Reason Stop Dose Admin Acetaminophen 650 mg 06/14/19 08:10 Tylenol PO Q4H PRN Pain MILD(1-3)/Fever >100.5/ROBERSON Albuterol 2.5 mg 06/14/19 08:10 Proventil IH Q3HRT PRN Shortness Of Breath Albuterol/Ipratropium 1 ampul 06/14/19 14:00 06/17/19 08:44 Duoneb *Not For Prn Use* IH 1 ampul Q6HRT [facility] Administration Aspirin 81 mg 06/14/19 10:00 06/17/19 09:25 Halfprin Ec PO 81 mg DAILY [facility] Administration Atorvastatin Calcium 40 mg 06/14/19 22:00 06/16/19 21:51 Lipitor PO 40 mg QHS [facility] Administration Bumetanide 1 mg 06/14/19 18:00 06/17/19 06:10 Bumex IV 1 mg BID@0600,1800 [facility] Administration Carvedilol 3.125 mg 06/14/19 10:00 06/17/19 09:27 Coreg PO 3.125 mg BID [facility] Administration Dextrose 50 ml 06/15/19 17:01 D50w (25gm) Syringe IV Q30MIN PRN Hypoglycemia Protocol Ergocalciferol 50,000 unit 06/21/19 10:00 Vitamin D2 PO Mo [facility] Insulin Human Regular 0 units 06/15/19 22:00 06/17/19 11:52 Humulin R SUB-Q Not Given ACHS [facility] Protocol Metolazone 5 mg 06/17/19 11:00 06/17/19 11:10 Zaroxolyn PO 5 mg QDAY [facility] Administration Naloxone HCl 0.1 mg 06/14/19 08:10 Naloxone IV Q2MIN PRN Res Rate </= 8 or 02 SAT < 92% Nitroglycerin 0.4 mg 06/14/19 05:00 Nitrostat SL .Q5MIN PRN Chest Pain Ondansetron HCl 4 mg 06/14/19 08:10 Zofran IV Q8H PRN Nausea And Vomiting Oxycodone HCl 10 mg 06/14/19 15:00 06/17/19 12:53 Roxicodone PO 10 mg Q6HR PRN Administration Pain, Severe (7-10) Oxycodone/Acetaminophen 1 tab 06/14/19 08:10 06/17/19 09:25 Percocet 5/325 PO 1 tab Q6H PRN Administration Pain, Moderate (4-6) Sodium Chloride 10 ml 06/14/19 10:00 06/17/19 09:28 Sodium Chloride Flush Syringe 10 Ml IV 10 ml BID [facility] Administration Sodium Chloride 10 ml 06/14/19 08:10 06/15/19 06:30 Sodium Chloride Flush Syringe 10 Ml IV 06/24/19 08:09 10 ml PRN PRN Administration LINE FLUSH Spironolactone 25 mg 06/14/19 10:00 06/17/19 09:27 Aldactone PO 25 mg QDAY [facility] Administration Warfarin Sodium 7.5 mg 06/17/19 17:00 Coumadin PO DAILY@1700 [facility] Nutrition/Malnutrition Assess - Dietary Evaluation Nutrition/Malnutrition Findings: Nutrition Notes Start: 06/15/19 11:58 Freq: Status: Active Protocol: Document 06/15/19 11:58 CT (Rec: 06/15/19 12:03 CT [id number]) Co-Sign 06/15/19 11:58 LP Nutrition Notes Need for Assessment generated from: Education Initial or Follow up Brief Note Current Diagnosis Acute Kidney Injury,Diabetes, Hypertension,Heart Failure Other Pertinent Diagnosis RLE DVT, Bilat LE edema, Current Diet Cardiac consistent CHO Labs/Tests Na 136 BUN 45 Creatinine 1.8 POC Glu 109 Pertinent Medications Bumex Lipitor Coumadin Height 6 ft 1 in Weight 250.8 kg Usual Body Weight 213.188 kg [place] Body Weight (kg) 83.63 BMI 72.9 Intake Prior to Admission Good Weight Status Morbidly Obese Subjective/Other Information Consult for Coumadin and heart failure diet. Pt stated that he has received education for those topics previously and did not want more. Handouts were left for pt to read over. Pt stated that the portions are small, and that he gets hungry in the middle of the night. Ordered double protein for the pt. Burn Absent Trauma Absent GI Symptoms None Current % PO Good (75-100%) Minimum of two criteria No physical signs of malnutrition Nutrition Intervention Anticipated Discharge Needs: Cardiac/consistent CHO Revisit per MD consult or patient Sign Off request:
[2019-06-17] MEDS: WARFARIN 7.5 MG TAB PO SCH (17:25)
[2019-06-18] MEDS: oxyCODONE /ACETAMINOPHEN 5-325MG TAB PO PRN ×3 (00:06→14:42)
[2019-06-18] MEDS: IPRATROPIUM/ALBUTEROL SULFATE 3 ML AMPUL.NEB IH SCH ×4 (01:25→19:53)
[2019-06-18] MEDS: oxyCODONE 5 MG TAB PO PRN ×3 (03:46→21:33)
[2019-06-18] MEDS: BUMETANIDE 1 MG/4 ML INJ IV SCH ×2 (06:51→17:14)
[2019-06-18] MEDS: INSULIN REGULAR, HUMAN 100 UNITS/1 ML SUB-Q SCH ×4 (10:28→22:00)
[2019-06-18] MEDS: metOLazone 5 MG TAB PO SCH (10:31)
[2019-06-18] MEDS: ASPIRIN EC 81 MG TAB PO SCH (10:31)
[2019-06-18] MEDS: carvediloL 3.125 MG TAB PO SCH ×2 (10:31→21:33)
[2019-06-18] MEDS: SPIRONOLACTONE 25 MG TAB PO SCH (10:31)
[2019-06-18] MEDS: SACUBITRIL/VALSARTAN 49-51 MG TAB PO SCH ×2 (10:39→21:56)
[2019-06-18 11:35] LABS: INR 2.19 (0.87-1.13)
--- NOTE | 2019-06-18 11:41 | Progress Note ---
Assessment and Plan Assessment and plan: Acute on chronic systolic heart failure with EF of 10-15% -AICD in situ -On CHF protocol -Gradually improving, continue IV Bumex, Coreg, entresto and aldactone -Cardiology following REJI -Probably cardiorenal syndrome -Improving on IV diuretics, will monitor creatinine level H/O RLE DVT on anticoagulation with Coumadin -Continue Coumadin -INR level therapeutic, will monitor Arrhythmia (Frequent PVCs and NSVT) -Continue Coreg -Continue telemetry monitoring Hyponatremia -Improving -Cont oral fluid restriction, will monitor sodium level HTN -Controlled on meds DM2 -Stable -On SSI Chronic Lymphedema -For outpatient follow-up AOCD -H&H stable H/o A/Flutter -s/p ablation on 05/19/2019 -Heart rate controlled Chronic respiratory failure with hypoxia -Continue oxygen supplementation as needed -On home oxygen, 2 L Morbid obesity with BMI of 72.9 -Lifestyle modification recommended Obesity hypoventilation syndrome/Suspected CAITLYN -Outpatient sleep study recommended Disposition: For discharge when medically stable and cleared by cardiology History Interval history: Patient continues to gradually improve. He denies chest pain Hospitalist Physical - Constitutional Vitals: Temp Pulse Resp BP Pulse Ox 97.9 F 69 18 109/92 94 06/18/19 08:55 06/18/19 10:31 06/18/19 08:55 06/18/19 10:31 06/18/19 08:55 General appearance: Present: no acute distress, obese - EENT Eyes: Present: PERRL, EOM intact ENT: hearing intact, clear oral mucosa - Neck Neck: Present: supple - Respiratory Respiratory effort: normal Respiratory: bilateral: diminished, rales (bibasilar lungs) - Cardiovascular Rhythm: regular Heart Sounds: Present: S1 & S2 - Extremities Extremity abnormal: edema (in BLE slowing improving) - Abdominal General gastrointestinal: soft, non-tender, normal bowel sounds - Integumentary Integumentary: Present: warm, dry - Psychiatric Psychiatric: cooperative - Neurologic Neurologic: moves all extremities Results - Labs CBC & Chem 7: 06/15/19 03:59 06/17/19 04:12 Labs: Laboratory Last Values WBC 4.2 K/mm3 (4.5-11.0) L 06/15/19 03:59 RBC 4.60 M/mm3 (3.65-5.03) 06/15/19 03:59 Hgb 10.3 gm/dl (11.8-15.2) L 06/15/19 03:59 Hct 34.4 % (35.5-45.6) L 06/15/19 03:59 MCV 75 fl (84-94) L 06/15/19 03:59 MCH 23 pg (28-32) L 06/15/19 03:59 MCHC 30 % (32-34) L 06/15/19 03:59 RDW 20.8 % (13.2-15.2) H 06/15/19 03:59 Plt Count 211 K/mm3 (140-440) 06/15/19 03:59 Add Manual Diff Complete 06/15/19 03:59 Total Counted 100 06/15/19 03:59 Seg Neuts % (Manual) 50.0 % (40.0-70.0) 06/15/19 03:59 Band Neutrophils % 0 % 06/15/19 03:59 Lymphocytes % (Manual) 43.0 % (13.4-35.0) H 06/15/19 03:59 Reactive Lymphs % (Man) 1.0 % 06/15/19 03:59 Monocytes % (Manual) 3.0 % (0.0-7.3) 06/15/19 03:59 Eosinophils % (Manual) 3.0 % (0.0-4.3) 06/15/19 03:59 Basophils % (Manual) 0 % (0.0-1.8) 06/15/19 03:59 Metamyelocytes % 0 % 06/15/19 03:59 Myelocytes % 0 % 06/15/19 03:59 Promyelocytes % 0 % 06/15/19 03:59 Blast Cells % 0 % 06/15/19 03:59 Nucleated RBC % 2.0 % (0.0-0.9) H 06/15/19 03:59 Seg Neutrophils # Man 2.1 K/mm3 (1.8-7.7) 06/15/19 03:59 Band Neutrophils # 0.0 K/mm3 06/15/19 03:59 Lymphocytes # (Manual) 1.8 K/mm3 (1.2-5.4) 06/15/19 03:59 Abs React Lymphs (Man) 0.0 K/mm3 06/15/19 03:59 Monocytes # (Manual) 0.1 K/mm3 (0.0-0.8) 06/15/19 03:59 Eosinophils # (Manual) 0.1 K/mm3 (0.0-0.4) 06/15/19 03:59 Basophils # (Manual) 0.0 K/mm3 (0.0-0.1) 06/15/19 03:59 Metamyelocytes # 0.0 K/mm3 06/15/19 03:59 Myelocytes # 0.0 K/mm3 06/15/19 03:59 Promyelocytes # 0.0 K/mm3 06/15/19 03:59 Blast Cells # 0.0 K/mm3 06/15/19 03:59 WBC Morphology Not Reportable 06/15/19 03:59 Hypersegmented Neuts Not Reportable 06/15/19 03:59 Hyposegmented Neuts Not Reportable 06/15/19 03:59 Hypogranular Neuts Not Reportable 06/15/19 03:59 Smudge Cells Not Reportable 06/15/19 03:59 Toxic Granulation Not Reportable 06/15/19 03:59 Toxic Vacuolation Not Reportable 06/15/19 03:59 Dohle Bodies Not Reportable 06/15/19 03:59 Pelger-Huet Anomaly Not Reportable 06/15/19 03:59 Leslie Rods Not Reportable 06/15/19 03:59 Platelet Estimate Consistent w auto 06/15/19 03:59 Clumped Platelets Not Reportable 06/15/19 03:59 Plt Clumps, EDTA Not Reportable 06/15/19 03:59 Large Platelets Not Reportable 06/15/19 03:59 Giant Platelets Not Reportable 06/15/19 03:59 Platelet Satelliting Not Reportable 06/15/19 03:59 Plt Morphology Comment Not Reportable 06/15/19 03:59 RBC Morphology Not Reportable 06/15/19 03:59 Dimorphic RBCs Not Reportable 06/15/19 03:59 Polychromasia Not Reportable 06/15/19 03:59 Hypochromasia 1+ 06/15/19 03:59 Poikilocytosis Not Reportable 06/15/19 03:59 Anisocytosis 1+ 06/15/19 03:59 Microcytosis Not Reportable 06/15/19 03:59 Macrocytosis Not Reportable 06/15/19 03:59 Spherocytes Not Reportable 06/15/19 03:59 Pappenheimer Bodies Not Reportable 06/15/19 03:59 Sickle Cells Not Reportable 06/15/19 03:59 Target Cells Few 06/15/19 03:59 Tear Drop Cells Few 06/15/19 03:59 Ovalocytes Few 06/15/19 03:59 Helmet Cells Not Reportable 06/15/19 03:59 [place] Bodies Not Reportable 06/15/19 03:59 [place] Not Reportable 06/15/19 03:59 [place] Cells Not Reportable 06/15/19 03:59 Bite Cells Not Reportable 06/15/19 03:59 Crenated Cell Not Reportable 06/15/19 03:59 Elliptocytes Not Reportable 06/15/19 03:59 Acanthocytes (Spur) Not Reportable 06/15/19 03:59 Rouleaux Not Reportable 06/15/19 03:59 Hemoglobin C Crystals Not Reportable 06/15/19 03:59 Schistocytes Rare 06/15/19 03:59 Malaria parasites Not Reportable 06/15/19 03:59 Cliff Bodies Not Reportable 06/15/19 03:59 Hem Pathologist Commnt No 06/15/19 03:59 PT 23.9 Sec. (12.2-14.9) H 06/18/19 11:05 INR 2.19 (0.87-1.13) H 06/18/19 11:05 APTT 37.7 Sec. (24.2-36.6) H 06/14/19 05:13 Sodium 135 mmol/L (137-145) L 06/17/19 04:12 Potassium 4.9 mmol/L (3.6-5.0) 06/17/19 04:12 Chloride 99.6 mmol/L (98-107) 06/17/19 04:12 Carbon Dioxide 27 mmol/L (22-30) 06/17/19 04:12 Anion Gap 13 mmol/L 06/17/19 04:12 BUN 35 mg/dL (9-20) H 06/17/19 04:12 Creatinine 1.4 mg/dL (0.8-1.5) 06/17/19 04:12 Estimated GFR > 60 ml/min 06/17/19 04:12 BUN/Creatinine Ratio 25 % 06/17/19 04:12 Glucose 88 mg/dL (75-100) 06/17/19 04:12 POC Glucose 88 (70-105) 06/18/19 08:29 Calcium 8.7 mg/dL (8.4-10.2) 06/17/19 04:12 Magnesium 2.20 mg/dL (1.7-2.3) 06/17/19 04:12 Troponin T < 0.010 ng/mL (0.00-0.029) 06/14/19 07:48 NT-Pro-B Natriuret Pep 1663 pg/mL (0-450) H 06/14/19 05:13 Triglycerides 55 mg/dL (2-149) 06/14/19 07:48 Cholesterol 80 mg/dL (50-199) 06/14/19 07:48 LDL Cholesterol Direct 32 mg/dL (50-130) L 06/14/19 07:48 HDL Cholesterol 43 mg/dL (40-59) 06/14/19 07:48 Cholesterol/HDL Ratio 1.86 % 06/14/19 07:48 Active Medications - Current Medications Current Medications: Generic Name Dose Route Start Last Admin Trade Name Freq PRN Reason Stop Dose Admin Acetaminophen 650 mg 06/14/19 08:10 Tylenol PO Q4H PRN Pain MILD(1-3)/Fever >100.5/ROBERSON Albuterol 2.5 mg 06/14/19 08:10 Proventil IH Q3HRT PRN Shortness Of Breath Albuterol/Ipratropium 1 ampul 06/14/19 14:00 06/18/19 07:54 Duoneb *Not For Prn Use* IH 1 ampul Q6HRT CODY Administration Aspirin 81 mg 06/14/19 10:00 06/18/19 10:31 Halfprin Ec PO 81 mg DAILY CODY Administration Atorvastatin Calcium 40 mg 06/14/19 22:00 06/17/19 21:04 Lipitor PO 40 mg QHS CODY Administration Bumetanide 1 mg 06/14/19 18:00 06/18/19 06:51 Bumex IV 1 mg BID@0600,1800 CODY Administration Carvedilol 3.125 mg 06/14/19 10:00 06/18/19 10:31 Coreg PO 3.125 mg BID CODY Administration Dextrose 50 ml 06/15/19 17:01 D50w (25gm) Syringe IV Q30MIN PRN Hypoglycemia Protocol Ergocalciferol 50,000 unit 06/21/19 10:00 Vitamin D2 PO Mo [facility] Insulin Human Regular 0 units 06/15/19 22:00 06/18/19 10:28 Humulin R SUB-Q Not Given ACHS [facility] Protocol Metolazone 5 mg 06/17/19 11:00 06/18/19 10:31 Zaroxolyn PO 5 mg QDAY CODY Administration Naloxone HCl 0.1 mg 06/14/19 08:10 Naloxone IV Q2MIN PRN Res Rate </= 8 or 02 SAT < 92% Nitroglycerin 0.4 mg 06/14/19 05:00 Nitrostat SL .Q5MIN PRN Chest Pain Ondansetron HCl 4 mg 06/14/19 08:10 Zofran IV Q8H PRN Nausea And Vomiting Oxycodone HCl 10 mg 06/14/19 15:00 06/18/19 10:37 Roxicodone PO 10 mg Q6HR PRN Administration Pain, Severe (7-10) Oxycodone/Acetaminophen 1 tab 06/14/19 08:10 06/18/19 08:13 Percocet 5/325 PO 1 tab Q6H PRN Administration Pain, Moderate (4-6) Sodium Chloride 10 ml 06/14/19 10:00 06/18/19 10:32 Sodium Chloride Flush Syringe 10 Ml IV 10 ml BID CODY Administration Sodium Chloride 10 ml 06/14/19 08:10 06/15/19 06:30 Sodium Chloride Flush Syringe 10 Ml IV 06/24/19 08:09 10 ml PRN PRN Administration LINE FLUSH Spironolactone 25 mg 06/14/19 10:00 06/18/19 10:31 Aldactone PO 25 mg QDAY CODY Administration Warfarin Sodium 7.5 mg 06/17/19 17:00 06/17/19 17:25 Coumadin PO 7.5 mg DAILY@1700 CODY Administration Nutrition/Malnutrition Assess - Dietary Evaluation Nutrition/Malnutrition Findings: Nutrition Notes Start: 06/15/19 11:58 Freq: Status: Active Protocol: Document 12/03/19 11:58 CT (Rec: 06/15/19 12:03 CT [id number]) Co-Sign 06/15/19 11:58 LP Nutrition Notes Need for Assessment generated from: Education Initial or Follow up Brief Note Current Diagnosis Acute Kidney Injury,Diabetes, Hypertension,Heart Failure Other Pertinent Diagnosis RLE DVT, Bilat LE edema, Current Diet Cardiac consistent CHO Labs/Tests Na 136 BUN 45 Creatinine 1.8 POC Glu 109 Pertinent Medications Bumex Lipitor Coumadin Height 6 ft 1 in Weight 250.8 kg Usual Body Weight 213.188 kg [place] Body Weight (kg) 83.63 BMI 72.9 Intake Prior to Admission Good Weight Status Morbidly Obese Subjective/Other Information Consult for Coumadin and heart failure diet. Pt stated that he has received education for those topics previously and did not want more. Handouts were left for pt to read over. Pt stated that the portions are small, and that he gets hungry in the middle of the night. Ordered double protein for the pt. Burn Absent Trauma Absent GI Symptoms None Current % PO Good (75-100%) Minimum of two criteria No physical signs of malnutrition Nutrition Intervention Anticipated Discharge Needs: Cardiac/consistent CHO Revisit per MD consult or patient Sign Off request:
[2019-06-18 11:51] LABS: BUN/Creatinine Ratio 24; Blood Urea Nitrogen 34 mg/dL (9-20); Calcium 9.2 mg/dL (8.4-10.2); Hemolysis Index 1
--- NOTE | 2019-06-18 12:17 | Progress Note ---
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 Monitor renal indices. Hopeful d/c within next 24-48Hr. The patient has been seen in conjunction with Dr. Silas Berg who agrees with the assessment and plan of care. Subjective Date of service: 06/18/19 Principal diagnosis: HF Interval history: pt resting in bed, no current complaints, BLE edema improving. he reports his UOP increased significantly overnight. in SR on tele with freq PVCs and NSVT. Objective Last Vital Signs Temp 97.9 F 06/18/19 08:55 Pulse 69 06/18/19 10:31 Resp 18 06/18/19 08:55 BP 109/92 06/18/19 10:31 Pulse Ox 94 06/18/19 08:55 - Physical Examination General: No Apparent Distress HEENT: Positive: PERRL, Normocephaly, Mucus Membranes Moist Neck: Positive: neck supple, trachea midline Cardiac: Positive: Reg Rate and Rhythm, S1/S2 Lungs: Positive: Decreased Breath Sounds Neuro: Positive: Grossly Intact Abdomen: Negative: Tender Skin: Negative: Rash Musculoskeletal: No Pain Extremities: Present: +3 Edema (BLE) - Labs and Meds Coagulation 06/18/19 Range/Units 11:05 PT 23.9 H (12.2-14.9) Sec. INR 2.19 H (0.87-1.13) Comprehensive Metabolic Panel 06/18/19 Range/Units 11:05 Sodium 136 L (137-145) mmol/L Potassium 4.7 (3.6-5.0) mmol/L Chloride 96.4 L (98-107) mmol/L Carbon Dioxide 25 (22-30) mmol/L BUN 34 H (9-20) mg/dL Creatinine 1.4 (0.8-1.5) mg/dL Glucose 109 H (75-100) mg/dL Calcium 9.2 (8.4-10.2) mg/dL - Imaging and Cardiology EKG: report reviewed, image reviewed Echo: report reviewed (03/03/2019 showed EF 15-20%, LV severely dilated, grade 2 diastolic dysfunction, mild to mod TR, mild to mod MR, mod reduced RV systolic function, RVSP 57mmHg. ) Cardiac cath: report reviewed (Pt underwent LHC and RHC at [place] on 10/24/2017 which showed angiographically normal coronary arteries, normal right-sided fill ing pressures with a mean RA pressure of 5 mmHg, mildly elevated pulmonary artery pressures with a mean PA pressure of 27 mmHg and PA pressure was 38/16mmHG, mildly elevated left-sided filling pressures with a mean PCWP of 18 mmHg with a directly measured LVEDP of 20 mmHg, normal cardiac output with a CO of 5.74 L/min with a cardiac index of 1.82 L/min/m2 using a the Albaro equation.) - EKG Sinus rhythms and dysrhythmias: sinus rhythm Ventricular dysrhythmias: ventricular premature com
[2019-06-18] MEDS: WARFARIN 7.5 MG TAB PO SCH (17:14)
[2019-06-19] MEDS: oxyCODONE /ACETAMINOPHEN 5-325MG TAB PO PRN ×4 (01:40→23:02)
[2019-06-19] MEDS: oxyCODONE 5 MG TAB PO PRN ×3 (04:14→20:53)
[2019-06-19] MEDS: BUMETANIDE 1 MG/4 ML INJ IV SCH ×2 (05:57→17:00)
[2019-06-19 07:06] LABS: INR 2.15 (0.87-1.13)
[2019-06-19 07:18] LABS: BUN/Creatinine Ratio 24; Blood Urea Nitrogen 33 mg/dL (9-20); Calcium 9.3 mg/dL (8.4-10.2); Hemolysis Index 2
[2019-06-19] MEDS: IPRATROPIUM/ALBUTEROL SULFATE 3 ML AMPUL.NEB IH SCH ×3 (07:44→21:33)
[2019-06-19] MEDS: INSULIN REGULAR, HUMAN 100 UNITS/1 ML SUB-Q SCH ×3 (09:00→16:48)
--- NOTE | 2019-06-19 09:24 | Progress Note ---
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 Monitor renal indices. pt states he is having good urine output Subjective Date of service: 06/19/19 Principal diagnosis: HF Interval history: resting quietly denies cp or increased sob vss tel episodes of non sustained vt Objective Vital Signs Temp Pulse Pulse Resp Resp BP Pulse Ox 06/19/19 07:55 18 97 06/19/19 05:07 98.1 F 77 26 H 101/68 94 06/19/19 00:57 98.1 F 82 24 106/58 96 06/18/19 22:00 78 06/18/19 21:33 79 100/58 06/18/19 20:25 98.2 F 17 06/18/19 20:23 122.0 F H 57 L 7 L 100/58 91 06/18/19 19:57 94 06/18/19 19:55 80 20 06/18/19 17:39 18 114/90 06/18/19 13:24 79 18 06/18/19 10:31 69 109/92 06/18/19 10:00 81 - Physical Examination General: No Apparent Distress HEENT: Positive: PERRL, Normocephaly, Mucus Membranes Moist Neck: Positive: neck supple, trachea midline Cardiac: Positive: Reg Rate and Rhythm Lungs: Positive: clear to auscultation Neuro: Positive: Grossly Intact Abdomen: Negative: Tender /Rectal: Other (scrotal edema) Skin: Negative: Rash Musculoskeletal: No Pain Extremities: Present: +3 Edema (BLE) - Labs and Meds Coagulation 06/18/19 06/19/19 Range/Units 11:05 06:17 PT 23.9 H 23.6 H (12.2-14.9) Sec. INR 2.19 H 2.15 H (0.87-1.13) Comprehensive Metabolic Panel 06/18/19 06/19/19 Range/Units 11:05 06:17 Sodium 136 L 138 (137-145) mmol/L Potassium 4.7 4.9 (3.6-5.0) mmol/L Chloride 96.4 L 96.9 L (98-107) mmol/L Carbon Dioxide 25 29 (22-30) mmol/L BUN 34 H 33 H (9-20) mg/dL Creatinine 1.4 1.4 (0.8-1.5) mg/dL Glucose 109 H 108 H (75-100) mg/dL Calcium 9.2 9.3 (8.4-10.2) mg/dL - Imaging and Cardiology EKG: report reviewed, image reviewed Echo: report reviewed (03/03/2019 showed EF 15-20%, LV severely dilated, grade 2 diastolic dysfunction, mild to mod TR, mild to mod MR, mod reduced RV systolic function, RVSP 57mmHg. ) Cardiac cath: report reviewed (Pt underwent LHC and RHC at [place] on 10/24/2017 which showed angiographically normal coronary arteries, normal right-sided filling pressures with a mean RA pressure of 5 mmHg, mildly elevated pulmonary artery pressures with a mean PA pressure of 27 mmHg and PA pressure was 38/16mmHG, mildly elevated left-sided filling pressures with a mean PCWP of 18 mmHg with a directly measured LVEDP of 20 mmHg, normal cardiac output with a CO of 5.74 L/min with a cardiac index of 1.82 L/min/m2 using a the [place] equation.) - EKG Sinus rhythms and dysrhythmias: sinus rhythm Ventricular dysrhythmias: ventricular premature com
[2019-06-19] MEDS: ASPIRIN EC 81 MG TAB PO SCH (09:48)
[2019-06-19] MEDS: carvediloL 3.125 MG TAB PO SCH ×2 (09:51→23:08)
[2019-06-19] MEDS: SPIRONOLACTONE 25 MG TAB PO SCH (09:51)
[2019-06-19] MEDS: metOLazone 5 MG TAB PO SCH (09:51)
[2019-06-19] MEDS: SACUBITRIL/VALSARTAN 49-51 MG TAB PO SCH ×2 (09:55→23:02)
--- NOTE | 2019-06-19 13:28 | Progress Note ---
Assessment and Plan Assessment and plan: Acute on chronic systolic heart failure with EF of 10-15% -AICD in situ -On CHF protocol -Gradually improving, continue IV Bumex, Coreg, entresto and aldactone -Cardiology following REJI -Probably cardiorenal syndrome -Improving on IV diuretics, will monitor creatinine level H/O RLE DVT on anticoagulation with Coumadin -Continue Coumadin -INR level therapeutic, will monitor Arrhythmia (Frequent PVCs and NSVT) -Continue Coreg -Continue telemetry monitoring Hyponatremia -Improving -Cont oral fluid restriction, will monitor sodium level HTN -Controlled on meds DM2 -Stable -On SSI Chronic Lymphedema -For outpatient follow-up AOCD -H&H stable H/o A/Flutter -s/p ablation on 05/19/2019 -Heart rate controlled Chronic respiratory failure with hypoxia -Continue oxygen supplementation as needed -On home oxygen, 2 L Morbid obesity with BMI of 72.9 -Lifestyle modification recommended Obesity hypoventilation syndrome/Suspected CAITLYN -Outpatient sleep study recommended Disposition: For discharge when medically stable and cleared by cardiology History Interval history: Patient continues to gradually improve. He denied chest pain Hospitalist Physical - Constitutional Vitals: Temp Pulse Resp BP Pulse Ox 98.1 F 80 18 101/63 97 06/19/19 05:07 06/19/19 09:51 06/19/19 07:55 06/19/19 09:51 06/19/19 09:34 General appearance: Present: no acute distress, obese - EENT Eyes: Present: PERRL, EOM intact ENT: hearing intact, clear oral mucosa - Neck Neck: Present: supple - Respiratory Respiratory effort: normal Respiratory: bilateral: diminished, rales (rt base) - Cardiovascular Rhythm: regular Heart Sounds: Present: S1 & S2 - Extremities Extremity abnormal: edema (in BLE) - Abdominal General gastrointestinal: soft, non-tender, normal bowel sounds - Integumentary Integumentary: Present: warm - Psychiatric Psychiatric: appropriate mood/affect - Neurologic Neurologic: moves all extremities Results - Labs CBC & Chem 7: 06/15/19 03:59 06/19/19 06:17 Labs: Laboratory Last Values WBC 4.2 K/mm3 (4.5-11.0) L 06/15/19 03:59 RBC 4.60 M/mm3 (3.65-5.03) 06/15/19 03:59 Hgb 10.3 gm/dl (11.8-15.2) L 06/15/19 03:59 Hct 34.4 % (35.5-45.6) L 06/15/19 03:59 MCV 75 fl (84-94) L 06/15/19 03:59 MCH 23 pg (28-32) L 06/15/19 03:59 MCHC 30 % (32-34) L 06/15/19 03:59 RDW 20.8 % (13.2-15.2) H 06/15/19 03:59 Plt Count 211 K/mm3 (140-440) 06/15/19 03:59 Add Manual Diff Complete 06/15/19 03:59 Total Counted 100 06/15/19 03:59 Seg Neuts % (Manual) 50.0 % (40.0-70.0) 06/15/19 03:59 Band Neutrophils % 0 % 06/15/19 03:59 Lymphocytes % (Manual) 43.0 % (13.4-35.0) H 06/15/19 03:59 Reactive Lymphs % (Man) 1.0 % 06/15/19 03:59 Monocytes % (Manual) 3.0 % (0.0-7.3) 06/15/19 03:59 Eosinophils % (Manual) 3.0 % (0.0-4.3) 06/15/19 03:59 Basophils % (Manual) 0 % (0.0-1.8) 06/15/19 03:59 Metamyelocytes % 0 % 06/15/19 03:59 Myelocytes % 0 % 06/15/19 03:59 Promyelocytes % 0 % 06/15/19 03:59 Blast Cells % 0 % 06/15/19 03:59 Nucleated RBC % 2.0 % (0.0-0.9) H 06/15/19 03:59 Seg Neutrophils # Man 2.1 K/mm3 (1.8-7.7) 06/15/19 03:59 Band Neutrophils # 0.0 K/mm3 06/15/19 03:59 Lymphocytes # (Manual) 1.8 K/mm3 (1.2-5.4) 06/15/19 03:59 Abs React Lymphs (Man) 0.0 K/mm3 06/15/19 03:59 Monocytes # (Manual) 0.1 K/mm3 (0.0-0.8) 06/15/19 03:59 Eosinophils # (Manual) 0.1 K/mm3 (0.0-0.4) 06/15/19 03:59 Basophils # (Manual) 0.0 K/mm3 (0.0-0.1) 06/15/19 03:59 Metamyelocytes # 0.0 K/mm3 06/15/19 03:59 Myelocytes # 0.0 K/mm3 06/15/19 03:59 Promyelocytes # 0.0 K/mm3 06/15/19 03:59 Blast Cells # 0.0 K/mm3 06/15/19 03:59 WBC Morphology Not Reportable 06/15/19 03:59 Hypersegmented Neuts Not Reportable 06/15/19 03:59 Hyposegmented Neuts Not Reportable 06/15/19 03:59 Hypogranular Neuts Not Reportable 06/15/19 03:59 Smudge Cells Not Reportable 06/15/19 03:59 Toxic Granulation Not Reportable 06/15/19 03:59 Toxic Vacuolation Not Reportable 06/15/19 03:59 Dohle Bodies Not Reportable 06/15/19 03:59 Pelger-Huet Anomaly Not Reportable 06/15/19 03:59 Leslie Rods Not Reportable 06/15/19 03:59 Platelet Estimate Consistent w auto 06/15/19 03:59 Clumped Platelets Not Reportable 06/15/19 03:59 Plt Clumps, EDTA Not Reportable 06/15/19 03:59 Large Platelets Not Reportable 06/15/19 03:59 Giant Platelets Not Reportable 06/15/19 03:59 Platelet Satelliting Not Reportable 06/15/19 03:59 Plt Morphology Comment Not Reportable 06/15/19 03:59 RBC Morphology Not Reportable 06/15/19 03:59 Dimorphic RBCs Not Reportable 06/15/19 03:59 Polychromasia Not Reportable 06/15/19 03:59 Hypochromasia 1+ 06/15/19 03:59 Poikilocytosis Not Reportable 06/15/19 03:59 Anisocytosis 1+ 06/15/19 03:59 Microcytosis Not Reportable 06/15/19 03:59 Macrocytosis Not Reportable 06/15/19 03:59 Spherocytes Not Reportable 06/15/19 03:59 Pappenheimer Bodies Not Reportable 06/15/19 03:59 Sickle Cells Not Reportable 06/15/19 03:59 Target Cells Few 06/15/19 03:59 Tear Drop Cells Few 06/15/19 03:59 Ovalocytes Few 06/15/19 03:59 Helmet Cells Not Reportable 06/15/19 03:59 [place] Bodies Not Reportable 06/15/19 03:59 [place] Rings Not Reportable 06/15/19 03:59 Joseline Cells Not Reportable 06/15/19 03:59 Bite Cells Not Reportable 06/15/19 03:59 Crenated Cell Not Reportable 06/15/19 03:59 Elliptocytes Not Reportable 06/15/19 03:59 Acanthocytes (Spur) Not Reportable 06/15/19 03:59 Rouleaux Not Reportable 06/15/19 03:59 Hemoglobin C Crystals Not Reportable 06/15/19 03:59 Schistocytes Rare 06/15/19 03:59 Malaria parasites Not Reportable 06/15/19 03:59 Cliff Bodies Not Reportable 06/15/19 03:59 Hem Pathologist Commnt No 06/15/19 03:59 PT 23.6 Sec. (12.2-14.9) H 06/19/19 06:17 INR 2.15 (0.87-1.13) H 06/19/19 06:17 APTT 37.7 Sec. (24.2-36.6) H 06/14/19 05:13 Sodium 138 mmol/L (137-145) 06/19/19 06:17 Potassium 4.9 mmol/L (3.6-5.0) 06/19/19 06:17 Chloride 96.9 mmol/L (98-107) L 06/19/19 06:17 Carbon Dioxide 29 mmol/L (22-30) 06/19/19 06:17 Anion Gap 17 mmol/L 06/19/19 06:17 BUN 33 mg/dL (9-20) H 06/19/19 06:17 Creatinine 1.4 mg/dL (0.8-1.5) 06/19/19 06:17 Estimated GFR > 60 ml/min 06/19/19 06:17 BUN/Creatinine Ratio 24 % 06/19/19 06:17 Glucose 108 mg/dL (75-100) H 06/19/19 06:17 POC Glucose 160 (70-105) H 06/19/19 08:59 Calcium 9.3 mg/dL (8.4-10.2) 06/19/19 06:17 Magnesium 2.20 mg/dL (1.7-2.3) 06/17/19 04:12 Troponin T < 0.010 ng/mL (0.00-0.029) 06/14/19 07:48 NT-Pro-B Natriuret Pep 1663 pg/mL (0-450) H 06/14/19 05:13 Triglycerides 55 mg/dL (2-149) 06/14/19 07:48 Cholesterol 80 mg/dL (50-199) 06/14/19 07:48 LDL Cholesterol Direct 32 mg/dL (50-130) L 06/14/19 07:48 HDL Cholesterol 43 mg/dL (40-59) 06/14/19 07:48 Cholesterol/HDL Ratio 1.86 % 06/14/19 07:48 Active Medications - Current Medications Current Medications: Generic Name Dose Route Start Last Admin Trade Name Freq PRN Reason Stop Dose Admin Acetaminophen 650 mg 06/14/19 08:10 Tylenol PO Q4H PRN Pain MILD(1-3)/Fever >100.5/ROBERSON Albuterol 2.5 mg 06/14/19 08:10 Proventil IH Q3HRT PRN Shortness Of Breath Albuterol/Ipratropium 1 ampul 06/19/19 08:00 06/19/19 07:44 Duoneb *Not For Prn Use* IH 1 ampul TIDRT CODY Administration Aspirin 81 mg 06/14/19 10:00 06/19/19 09:48 Halfprin Ec PO 81 mg DAILY CODY Administration Atorvastatin Calcium 40 mg 06/14/19 22:00 06/18/19 21:34 Lipitor PO 40 mg QHS CODY Administration Bumetanide 1 mg 06/14/19 18:00 06/19/19 05:57 Bumex IV 1 mg BID@0600,1800 CODY Administration Carvedilol 3.125 mg 06/14/19 10:00 06/19/19 09:51 Coreg PO 3.125 mg BID CODY Administration Dextrose 50 ml 06/15/19 17:01 D50w (25gm) Syringe IV Q30MIN PRN Hypoglycemia Protocol Ergocalciferol 50,000 unit 06/21/19 10:00 Vitamin D2 PO Mo CODY Insulin Human Regular 0 units 06/15/19 22:00 06/19/19 11:40 Humulin R SUB-Q Not Given ACHS [facility] Protocol Metolazone 5 mg 06/17/19 11:00 06/19/19 09:51 Zaroxolyn PO 5 mg QDAY CODY Administration Naloxone HCl 0.1 mg 06/14/19 08:10 Naloxone IV Q2MIN PRN Res Rate </= 8 or 02 SAT < 92% Nitroglycerin 0.4 mg 06/14/19 05:00 Nitrostat SL .Q5MIN PRN Chest Pain Ondansetron HCl 4 mg 06/14/19 08:10 Zofran IV Q8H PRN Nausea And Vomiting Oxycodone HCl 10 mg 06/14/19 15:00 06/19/19 13:11 Roxicodone PO 10 mg Q6HR PRN Administration Pain, Severe (7-10) Oxycodone/Acetaminophen 1 tab 06/14/19 08:10 06/19/19 08:53 Percocet 5/325 PO 1 tab Q6H PRN Administration Pain, Moderate (4-6) Sodium Chloride 10 ml 06/14/19 10:00 06/19/19 09:52 Sodium Chloride Flush Syringe 10 Ml IV 10 ml BID CODY Administration Sodium Chloride 10 ml 06/14/19 08:10 06/15/19 06:30 Sodium Chloride Flush Syringe 10 Ml IV 06/24/19 08:09 10 ml PRN PRN Administration LINE FLUSH Spironolactone 25 mg 06/14/19 10:00 06/19/19 09:51 Aldactone PO 25 mg QDAY CODY Administration Warfarin Sodium 7.5 mg 06/17/19 17:00 06/18/19 17:14 Coumadin PO 7.5 mg DAILY@1700 CODY Administration Nutrition/Malnutrition Assess - Dietary Evaluation Nutrition/Malnutrition Findings: Nutrition Notes Start: 06/15/19 11:58 Freq: Status: Active Protocol: Document 06/15/19 11:58 CT (Rec: 06/15/19 12:03 CT [id number]) Co-Sign 06/15/19 11:58 LP Nutrition Notes Need for Assessment generated from: Education Initial or Follow up Brief Note Current Diagnosis Acute Kidney Injury,Diabetes, Hypertension,Heart Failure Other Pertinent Diagnosis RLE DVT, Bilat LE edema, Current Diet Cardiac consistent CHO Labs/Tests Na 136 BUN 45 Creatinine 1.8 POC Glu 109 Pertinent Medications Bumex Lipitor Coumadin Height 6 ft 1 in Weight 250.8 kg Usual Body Weight 213.188 kg [place] Body Weight (kg) 83.63 BMI 72.9 Intake Prior to Admission Good Weight Status Morbidly Obese Subjective/Other Information Consult for Coumadin and heart failure diet. Pt stated that he has received education for those topics previously and did not want more. Handouts were left for pt to read over. Pt stated that the portions are small, and that he gets hungry in the middle of the night. Ordered double protein for the pt. Burn Absent Trauma Absent GI Symptoms None Current % PO Good (75-100%) Minimum of two criteria No physical signs of malnutrition Nutrition Intervention Anticipated Discharge Needs: Cardiac/consistent CHO Revisit per MD consult or patient Sign Off request:
[2019-06-19] MEDS: WARFARIN 7.5 MG TAB PO SCH (16:57)
[2019-06-20] MEDS: oxyCODONE 5 MG TAB PO PRN ×4 (02:23→23:32)
[2019-06-20] MEDS: oxyCODONE /ACETAMINOPHEN 5-325MG TAB PO PRN ×3 (05:13→21:00)
[2019-06-20] MEDS: BUMETANIDE 1 MG/4 ML INJ IV SCH (05:13)
[2019-06-20] MEDS: INSULIN REGULAR, HUMAN 100 UNITS/1 ML SUB-Q SCH ×5 (06:50→22:00)
[2019-06-20] MEDS: IPRATROPIUM/ALBUTEROL SULFATE 3 ML AMPUL.NEB IH SCH ×3 (08:14→22:18)
--- NOTE | 2019-06-20 08:53 | Progress Note ---
Assessment and Plan Assessment and plan: 34-year-old man with history of chronic systolic CHF, right lower extremity lymphedema who presented to the hospital with shortness of breath and lower extremity swelling. The patient is on Coumadin for history of DVT. Acute on chronic systolic heart failure with EF of 10-15% -AICD in situ -Gradually improving, continue IV Bumex, Coreg, entresto and aldactone -Cardiology following REJI- vasomotor nephropathy -Probably cardiorenal syndrome -Improving on IV diuretics, will monitor creatinine level H/O RLE DVT on anticoagulation with Coumadin -Continue Coumadin -INR level therapeutic, will monitor (Frequent PVCs and NSVT) -Continue Coreg -Continue telemetry monitoring Hyponatremia -Improving -Cont oral fluid restriction, will monitor sodium level HTN -Controlled on meds DM2 -Stable -On SSI ChronicRight lower extremity Lymphedema -For outpatient follow-up AOCD -H&H stable H/o A/Flutter -s/p ablation on 05/19/2019 -Heart rate controlled Chronic respiratory failure with hypoxia -Continue oxygen supplementation as needed -On home oxygen, 2 L Morbid obesity with BMI of 72.9 -Lifestyle modification recommended Obesity hypoventilation syndrome/Suspected CAITLYN -Outpatient sleep study recommended Disposition: Continue inpatient care Hospitalist Physical - Constitutional Vitals: Temp Pulse Resp BP Pulse Ox 97.8 F 85 16 111/61 94 06/20/19 07:40 06/20/19 08:15 06/20/19 08:15 06/20/19 07:40 06/20/19 08:16 General appearance: Present: no acute distress, obese Results - Labs CBC & Chem 7: 06/20/19 08:56 06/22/19 04:54 Labs: Laboratory Last Values WBC 4.2 K/mm3 (4.5-11.0) L 06/15/19 03:59 RBC 4.60 M/mm3 (3.65-5.03) 06/15/19 03:59 Hgb 10.3 gm/dl (11.8-15.2) L 06/15/19 03:59 Hct 34.4 % (35.5-45.6) L 06/15/19 03:59 MCV 75 fl (84-94) L 06/15/19 03:59 MCH 23 pg (28-32) L 06/15/19 03:59 MCHC 30 % (32-34) L 06/15/19 03:59 RDW 20.8 % (13.2-15.2) H 06/15/19 03:59 Plt Count 211 K/mm3 (140-440) 06/15/19 03:59 Add Manual Diff Complete 06/15/19 03:59 Total Counted 100 06/15/19 03:59 Seg Neuts % (Manual) 50.0 % (40.0-70.0) 06/15/19 03:59 Band Neutrophils % 0 % 06/15/19 03:59 Lymphocytes % (Manual) 43.0 % (13.4-35.0) H 06/15/19 03:59 Reactive Lymphs % (Man) 1.0 % 06/15/19 03:59 Monocytes % (Manual) 3.0 % (0.0-7.3) 06/15/19 03:59 Eosinophils % (Manual) 3.0 % (0.0-4.3) 06/15/19 03:59 Basophils % (Manual) 0 % (0.0-1.8) 06/15/19 03:59 Metamyelocytes % 0 % 06/15/19 03:59 Myelocytes % 0 % 06/15/19 03:59 Promyelocytes % 0 % 06/15/19 03:59 Blast Cells % 0 % 06/15/19 03:59 Nucleated RBC % 2.0 % (0.0-0.9) H 06/15/19 03:59 Seg Neutrophils # Man 2.1 K/mm3 (1.8-7.7) 06/15/19 03:59 Band Neutrophils # 0.0 K/mm3 06/15/19 03:59 Lymphocytes # (Manual) 1.8 K/mm3 (1.2-5.4) 06/15/19 03:59 Abs React Lymphs (Man) 0.0 K/mm3 06/15/19 03:59 Monocytes # (Manual) 0.1 K/mm3 (0.0-0.8) 06/15/19 03:59 Eosinophils # (Manual) 0.1 K/mm3 (0.0-0.4) 06/15/19 03:59 Basophils # (Manual) 0.0 K/mm3 (0.0-0.1) 06/15/19 03:59 Metamyelocytes # 0.0 K/mm3 06/15/19 03:59 Myelocytes # 0.0 K/mm3 06/15/19 03:59 Promyelocytes # 0.0 K/mm3 06/15/19 03:59 Blast Cells # 0.0 K/mm3 06/15/19 03:59 WBC Morphology Not Reportable 06/15/19 03:59 Hypersegmented Neuts Not Reportable 06/15/19 03:59 Hyposegmented Neuts Not Reportable 06/15/19 03:59 Hypogranular Neuts Not Reportable 06/15/19 03:59 Smudge Cells Not Reportable 06/15/19 03:59 Toxic Granulation Not Reportable 06/15/19 03:59 Toxic Vacuolation Not Reportable 06/15/19 03:59 Dohle Bodies Not Reportable 06/15/19 03:59 Pelger-Huet Anomaly Not Reportable 06/15/19 03:59 Leslie Rods Not Reportable 06/15/19 03:59 Platelet Estimate Consistent w auto 06/15/19 03:59 Clumped Platelets Not Reportable 06/15/19 03:59 Plt Clumps, EDTA Not Reportable 06/15/19 03:59 Large Platelets Not Reportable 06/15/19 03:59 Giant Platelets Not Reportable 06/15/19 03:59 Platelet Satelliting Not Reportable 06/15/19 03:59 Plt Morphology Comment Not Reportable 06/15/19 03:59 RBC Morphology Not Reportable 06/15/19 03:59 Dimorphic RBCs Not Reportable 06/15/19 03:59 Polychromasia Not Reportable 06/15/19 03:59 Hypochromasia 1+ 06/15/19 03:59 Poikilocytosis Not Reportable 06/15/19 03:59 Anisocytosis 1+ 06/15/19 03:59 Microcytosis Not Reportable 06/15/19 03:59 Macrocytosis Not Reportable 06/15/19 03:59 Spherocytes Not Reportable 06/15/19 03:59 Pappenheimer Bodies Not Reportable 06/15/19 03:59 Sickle Cells Not Reportable 06/15/19 03:59 Target Cells Few 06/15/19 03:59 Tear Drop Cells Few 06/15/19 03:59 Ovalocytes Few 06/15/19 03:59 Helmet Cells Not Reportable 06/15/19 03:59 [place] Bodies Not Reportable 06/15/19 03:59 [place] Rings Not Reportable 06/15/19 03:59 Joseline Cells Not Reportable 06/15/19 03:59 Bite Cells Not Reportable 06/15/19 03:59 Crenated Cell Not Reportable 06/15/19 03:59 Elliptocytes Not Reportable 06/15/19 03:59 Acanthocytes (Spur) Not Reportable 06/15/19 03:59 Rouleaux Not Reportable 06/15/19 03:59 Hemoglobin C Crystals Not Reportable 06/15/19 03:59 Schistocytes Rare 06/15/19 03:59 Malaria parasites Not Reportable 06/15/19 03:59 Cliff Bodies Not Reportable 06/15/19 03:59 Hem Pathologist Commnt No 06/15/19 03:59 PT 23.6 Sec. (12.2-14.9) H 06/19/19 06:17 INR 2.15 (0.87-1.13) H 06/19/19 06:17 APTT 37.7 Sec. (24.2-36.6) H 06/14/19 05:13 Sodium 138 mmol/L (137-145) 06/19/19 06:17 Potassium 4.9 mmol/L (3.6-5.0) 06/19/19 06:17 Chloride 96.9 mmol/L (98-107) L 06/19/19 06:17 Carbon Dioxide 29 mmol/L (22-30) 06/19/19 06:17 Anion Gap 17 mmol/L 06/19/19 06:17 BUN 33 mg/dL (9-20) H 06/19/19 06:17 Creatinine 1.4 mg/dL (0.8-1.5) 06/19/19 06:17 Estimated GFR > 60 ml/min 06/19/19 06:17 BUN/Creatinine Ratio 24 % 06/19/19 06:17 Glucose 108 mg/dL (75-100) H 06/19/19 06:17 POC Glucose 84 (70-105) 06/20/19 07:49 Calcium 9.3 mg/dL (8.4-10.2) 06/19/19 06:17 Magnesium 2.20 mg/dL (1.7-2.3) 06/17/19 04:12 Troponin T < 0.010 ng/mL (0.00-0.029) 06/14/19 07:48 NT-Pro-B Natriuret Pep 1663 pg/mL (0-450) H 06/14/19 05:13 Triglycerides 55 mg/dL (2-149) 06/14/19 07:48 Cholesterol 80 mg/dL (50-199) 06/14/19 07:48 LDL Cholesterol Direct 32 mg/dL (50-130) L 06/14/19 07:48 HDL Cholesterol 43 mg/dL (40-59) 06/14/19 07:48 Cholesterol/HDL Ratio 1.86 % 06/14/19 07:48 Active Medications - Current Medications Current Medications: Generic Name Dose Route Start Last Admin Trade Name Freq PRN Reason Stop Dose Admin Acetaminophen 650 mg 06/14/19 08:10 Tylenol PO Q4H PRN Pain MILD(1-3)/Fever >100.5/ROBERSON Albuterol 2.5 mg 06/14/19 08:10 Proventil IH Q3HRT PRN Shortness Of Breath Albuterol/Ipratropium 1 ampul 06/19/19 08:00 06/20/19 08:14 Duoneb *Not For Prn Use* IH 1 ampul TIDRT CODY Administration Aspirin 81 mg 06/14/19 10:00 06/19/19 09:48 Halfprin Ec PO 81 mg DAILY CODY Administration Atorvastatin Calcium 40 mg 06/14/19 22:00 06/19/19 23:06 Lipitor PO 40 mg QHS CODY Administration Bumetanide 1 mg 06/14/19 18:00 06/20/19 05:13 Bumex IV 1 mg BID@0600,1800 CODY Administration Carvedilol 3.125 mg 06/14/19 10:00 06/19/19 23:08 Coreg PO 3.125 mg BID CODY Administration Dextrose 50 ml 06/15/19 17:01 D50w (25gm) Syringe IV Q30MIN PRN Hypoglycemia Protocol Ergocalciferol 50,000 unit 06/21/19 10:00 Vitamin D2 PO Mo CODY Insulin Human Regular 0 units 06/15/19 22:00 06/20/19 07:54 Humulin R SUB-Q Not Given ACHS [facility] Protocol Metolazone 5 mg 06/17/19 11:00 06/19/19 09:51 Zaroxolyn PO 5 mg QDAY CODY Administration Naloxone HCl 0.1 mg 06/14/19 08:10 Naloxone IV Q2MIN PRN Res Rate </= 8 or 02 SAT < 92% Nitroglycerin 0.4 mg 06/14/19 05:00 Nitrostat SL .Q5MIN PRN Chest Pain Ondansetron HCl 4 mg 06/14/19 08:10 Zofran IV Q8H PRN Nausea And Vomiting Oxycodone HCl 10 mg 06/14/19 15:00 06/20/19 08:44 Roxicodone PO 10 mg Q6HR PRN Administration Pain, Severe (7-10) Oxycodone/Acetaminophen 1 tab 06/14/19 08:10 06/20/19 05:13 Percocet 5/325 PO 1 tab Q6H PRN Administration Pain, Moderate (4-6) Sodium Chloride 10 ml 06/14/19 10:00 06/19/19 23:03 Sodium Chloride Flush Syringe 10 Ml IV 10 ml BID CODY Administration Sodium Chloride 10 ml 06/14/19 08:10 06/15/19 06:30 Sodium Chloride Flush Syringe 10 Ml IV 06/24/19 08:09 10 ml PRN PRN Administration LINE FLUSH Spironolactone 25 mg 06/14/19 10:00 06/19/19 09:51 Aldactone PO 25 mg QDAY CODY Administration Warfarin Sodium 7.5 mg 06/17/19 17:00 06/19/19 16:57 Coumadin PO 7.5 mg DAILY@1700 CODY Administration Nutrition/Malnutrition Assess - Dietary Evaluation Nutrition/Malnutrition Findings: Nutrition Notes Start: 06/15/19 1 1:58 Freq: Status: Active Protocol: Document 06/15/19 11:58 CT (Rec: 06/15/19 12:03 CT [id number]) Co-Sign 06/15/19 11:58 LP Nutrition Notes Need for Assessment generated from: Education Initial or Follow up Brief Note Current Diagnosis Acute Kidney Injury,Diabetes, Hypertension,Heart Failure Other Pertinent Diagnosis RLE DVT, Bilat LE edema, Current Diet Cardiac consistent CHO Labs/Tests Na 136 BUN 45 Creatinine 1.8 POC Glu 109 Pertinent Medications Bumex Lipitor Coumadin Height 6 ft 1 in Weight 250.8 kg Usual Body Weight 213.188 kg [place] Body Weight (kg) 83.63 BMI 72.9 Intake Prior to Admission Good Weight Status Morbidly Obese Subjective/Other Information Consult for Coumadin and heart failure diet. Pt stated that he has received education for those topics previously and did not want more. Handouts were left for pt to read over. Pt stated that the portions are small, and that he gets hungry in the middle of the night. Ordered double protein for the pt. Burn Absent Trauma Absent GI Symptoms None Current % PO Good (75-100%) Minimum of two criteria No physical signs of malnutrition Nutrition Intervention Anticipated Discharge Needs: Cardiac/consistent CHO Revisit per MD consult or patient Sign Off request:
[2019-06-20] MEDS: carvediloL 3.125 MG TAB PO SCH ×2 (09:05→23:31)
[2019-06-20] MEDS: SPIRONOLACTONE 25 MG TAB PO SCH (09:05)
[2019-06-20] MEDS: metOLazone 5 MG TAB PO SCH (09:05)
[2019-06-20] MEDS: ASPIRIN EC 81 MG TAB PO SCH (09:05)
[2019-06-20 09:38] LABS: BUN/Creatinine Ratio 28; Blood Urea Nitrogen 36 mg/dL (9-20); Calcium 9.7 mg/dL (8.4-10.2); Hemolysis Index 1
[2019-06-20 09:43] LABS: Hematocrit 39.4 % (35.5-45.6); Hemoglobin 11.9 gm/dl (11.8-15.2); Mean Corpuscular HGB Conc 30 % (32-34); Mean Corpuscular Volume 74 fl (84-94); Platelet Count 252 K/mm3 (140-440); Red Blood Count 5.35 M/mm3 (3.65-5.03); Red Cell Distribution Width 21.3 % (13.2-15.2)
[2019-06-20] MEDS: SACUBITRIL/VALSARTAN 49-51 MG TAB PO SCH ×2 (12:11→23:32)
--- NOTE | 2019-06-20 12:20 | Progress Note ---
Assessment and Plan Cardiac status is improving. Will transition to PO Bumex and monitor renal indices carefully. Continue other cardiac management. Possible discharge tomorrow. The patient has been seen in conjunction with Dr. Cohwdary, who agrees with the assessment and plan. - Patient Problems (1) Acute on chronic systolic (congestive) heart failure Current Visit: No Status: Acute (2) Bilateral lower extremity edema Current Visit: Yes Status: Acute (3) Cardiomyopathy Current Visit: Yes Status: Chronic Qualifiers: Cardiomyopathy type: unspecified Qualified Code(s): I42.9 - Cardiomyopathy, unspecified (4) Obesity hypoventilation syndrome Current Visit: No Status: Acute (5) Type 2 diabetes mellitus with diabetic chronic kidney disease Current Visit: No Status: Acute (6) AICD (automatic cardioverter/defibrillator) present Current Visit: No Status: Chronic Subjective Date of service: 06/20/19 Principal diagnosis: HF Interval history: The patient is lying in bed in [facility]. He has no complaints. Swelling and breathing are improved. SR in 80s with first-degree AVB and PVCs on telemetry. Objective Last Vital Signs Temp 97.8 F 06/20/19 07:40 Pulse 66 06/20/19 09:05 Resp 18 06/20/19 08:57 BP 111/61 06/20/19 09:05 Pulse Ox 100 06/20/19 08:57 - Physical Examination General: No Apparent Distress HEENT: Positive: PERRL, Normocephaly, Mucus Membranes Moist Neck: Positive: neck supple, trachea midline Cardiac: Positive: Reg Rate and Rhythm Lungs: Positive: Decreased Breath Sounds Neuro: Positive: Grossly Intact Abdomen: Positive: Unremarkable. Negative: Tender /Rectal: Other (scrotal edema) Skin: Positive: Clear. Negative: Rash Musculoskeletal: No Pain Extremities: Present: +2 Edema (BLE) - Labs and Meds CBC 06/20/19 Range/Units 08:56 WBC 4.6 (4.5-11.0) K/mm3 RBC 5.35 H (3.65-5.03) M/mm3 Hgb 11.9 (11.8-15.2) gm/dl Hct 39.4 (35.5-45.6) % Plt Count 252 (140-440) K/mm3 Comprehensive Metabolic Panel 06/20/19 Range/Units 08:56 Sodium 136 L (137-145) mmol/L Potassium 4.6 (3.6-5.0) mmol/L Chloride 94.3 L (98-107) mmol/L Carbon Dioxide 24 (22-30) mmol/L BUN 36 H (9-20) mg/dL Creatinine 1.3 (0.8-1.5) mg/dL Glucose 141 H (75-100) mg/dL Calcium 9.7 (8.4-10.2) mg/dL - Imaging and Cardiology EKG: report reviewed, image reviewed Echo: report reviewed (03/03/2019 showed EF 15-20%, LV severely dilated, grade 2 diastolic dysfunction, mild to mod TR, mild to mod MR, mod reduced RV systolic function, RVSP 57mmHg. ) Cardiac cath: report reviewed (Pt underwent LHC and RHC at [facility] on 10/24/2017 which showed angiographically normal coronary arteries, normal right-sided filling pressures with a mean RA pressure of 5 mmHg, mildly elevated pulmonary artery pressures with a mean PA pressure of 27 mmHg and PA pressure was 38/16mmHG, mildly elevated left-sided filling pressures with a mean PCWP of 18 mmHg with a directly measured LVEDP of 20 mmHg, normal cardiac output with a CO of 5.74 L/min with a cardiac index of 1.82 L/min/m2 using a the Albaro equation.) - Telemetry EKG Rhythm: Sinus Rhythm (with first-degree AVB) - EKG Sinus rhythms and dysrhythmias: sinus rhythm Ventricular dysrhythmias: ventricular premature com
[2019-06-20] MEDS: BUMETANIDE 1 MG TAB PO SCH (14:00)
[2019-06-20 14:03] LABS: INR 1.92 (0.87-1.13)
[2019-06-20] MEDS: WARFARIN 10 MG TAB PO SCH (16:58)
[2019-06-20] MEDS ORDERED: TORSEMIDE 10 MG TAB PO SCH (18:00)
[2019-06-21] MEDS: oxyCODONE /ACETAMINOPHEN 5-325MG TAB PO PRN ×3 (02:24→17:12)
[2019-06-21] MEDS: oxyCODONE 5 MG TAB PO PRN ×3 (05:25→21:11)
[2019-06-21] MEDS: IPRATROPIUM/ALBUTEROL SULFATE 3 ML AMPUL.NEB IH SCH ×3 (07:55→19:19)
[2019-06-21] MEDS: INSULIN REGULAR, HUMAN 100 UNITS/1 ML SUB-Q SCH ×4 (09:00→21:12)
[2019-06-21 09:27] LABS: INR 2.09 (0.87-1.13)
[2019-06-21] MEDS: ASPIRIN EC 81 MG TAB PO SCH (09:53)
[2019-06-21] MEDS: SPIRONOLACTONE 25 MG TAB PO SCH (09:54)
[2019-06-21] MEDS: SACUBITRIL/VALSARTAN 49-51 MG TAB PO SCH ×2 (09:54→21:11)
[2019-06-21] MEDS: carvediloL 3.125 MG TAB PO SCH ×2 (09:54→21:11)
[2019-06-21] MEDS ORDERED: ERGOCALCIFEROL (VIT D2) 50,000 UNIT CAP PO SCH (10:00)
--- NOTE | 2019-06-21 10:15 | Discharge Summary ---
Providers - Providers Date of Admission: 06/14/19 07:15 Attending physician: SAMREEN AARON MD 06/14/19 08:10 Consult to Physician [CONS] Routine Comment: Consulting Provider: MECHELLE CARLSON Physician Instructions: Reason For Exam: heart failure Primary care physician: KIN ONTIVEROS MD Hospitalization Condition: Fair Disposition: DC-01 TO HOME OR SELFCARE Core Measure Documentation - Palliative Care Palliative Care/ Comfort Measures: Not Applicable - Core Measures Any of the following diagnoses?: heart failure - Heart Failure Discharge Requirements JOSH/ARB for LVSD if EF <40%: Yes Beta nilson at discharge: Yes Exam - Constitutional Vitals: Temp Pulse Resp BP Pulse Ox 99.4 F 48 L 18 127/81 94 06/21/19 08:57 06/21/19 09:54 06/21/19 08:57 06/21/19 09:54 06/21/19 08:57 General appearance: Present: no acute distress, well-nourished - EENT Eyes: Present: PERRL ENT: hearing intact, clear oral mucosa - Neck Neck: Present: supple, normal ROM - Respiratory Respiratory effort: normal Respiratory: bilateral: CTA - Cardiovascular Heart Sounds: Present: S1 & S2. Absent: rub, click - Extremities Extremities: pulses symmetrical, No edema Peripheral Pulses: within normal limits - Abdominal General gastrointestinal: Present: soft, non-tender, non-distended, normal bowel sounds Male genitourinary: Present: normal - Integumentary Integumentary: Present: clear, warm, dry - Musculoskeletal Musculoskeletal: gait normal, strength equal bilaterally - Psychiatric Psychiatric: appropriate mood/affect, intact judgment & insight - Neurologic Neurologic: CNII-XII intact, moves all extremities Plan Follow up with: PRIMARY CARE, [Primary Care Provider] - 3-5 Days Forms: Warfarin Discharge Instruction Prescriptions: Spironolactone [Aldactone] 25 mg PO QDAY #90 tablet Bumetanide [Bumex 1 mg tab] 3 mg PO QDAY #90 tablet carvediloL [Coreg] 3.125 mg PO BID #60 tablet Warfarin [Coumadin] 10 mg PO DAILY@1700 #30 tablet metFORMIN XR [Glucophage XR] 500 mg PO QDAY #90 tab oxyCODONE /ACETAMINOPHEN [Percocet 5/325 mg] 1 tab PO Q6H PRN #14 tablet PRN Reason: Pain, Moderate (4-6) metOLazone [Zaroxolyn] 5 mg PO QDAY #30 tablet
--- NOTE | 2019-06-21 11:46 | Progress Note ---
Assessment and Plan Assessment and plan: 34-year-old man with history of chronic systolic CHF, right lower extremity lymphedema who presented to the hospital with shortness of breath and lower extremity swelling. The patient is on Coumadin for history of DVT. Acute on chronic systolic heart failure with EF of 10-15% -AICD in situ -Gradually improving, continue IV Bumex, Coreg, entresto and aldactone -Cardiology following REJI- vasomotor nephropathy -Probably cardiorenal syndrome -Improving on IV diuretics, will monitor creatinine level H/O RLE DVT on anticoagulation with Coumadin -Continue Coumadin -INR level therapeutic, will monitor (Frequent PVCs and NSVT) -Continue Coreg -Continue telemetry monitoring Hyponatremia -Improving -Cont oral fluid restriction, will monitor sodium level HTN -Controlled on meds DM2 -Stable -On SSI ChronicRight lower extremity Lymphedema -For outpatient follow-up AOCD -H&H stable H/o A/Flutter -s/p ablation on 05/19/2019 -Heart rate controlled Chronic respiratory failure with hypoxia -Continue oxygen supplementation as needed -On home oxygen, 2 L Morbid obesity with BMI of 72.9 -Lifestyle modification recommended Obesity hypoventilation syndrome/Suspected CAITLYN -Outpatient sleep study recommended Disposition: Case discussed with cardiology. Most likely discharge tomorrow. Hospitalist Physical - Constitutional Vitals: Temp Pulse Resp BP Pulse Ox 99.4 F 48 L 18 127/81 94 06/21/19 08:57 06/21/19 10:00 06/21/19 10:00 06/21/19 09:54 06/21/19 10:00 General appearance: Present: no acute distress, obese Results - Labs CBC & Chem 7: 06/20/19 08:56 06/22/19 04:54 Labs: Laboratory Last Values WBC 4.6 K/mm3 (4.5-11.0) 06/20/19 08:56 RBC 5.35 M/mm3 (3.65-5.03) H 06/20/19 08:56 Hgb 11.9 gm/dl (11.8-15.2) 06/20/19 08:56 Hct 39.4 % (35.5-45.6) 06/20/19 08:56 MCV 74 fl (84-94) L 06/20/19 08:56 MCH 22 pg (28-32) L 06/20/19 08:56 MCHC 30 % (32-34) L 06/20/19 08:56 RDW 21.3 % (13.2-15.2) H 06/20/19 08:56 Plt Count 252 K/mm3 (140-440) 06/20/19 08:56 Add Manual Diff Complete 06/15/19 03:59 Total Counted 100 06/15/19 03:59 Seg Neuts % (Manual) 50.0 % (40.0-70.0) 06/15/19 03:59 Band Neutrophils % 0 % 06/15/19 03:59 Lymphocytes % (Manual) 43.0 % (13.4-35.0) H 06/15/19 03:59 Reactive Lymphs % (Man) 1.0 % 06/15/19 03:59 Monocytes % (Manual) 3.0 % (0.0-7.3) 06/15/19 03:59 Eosinophils % (Manual) 3.0 % (0.0-4.3) 06/15/19 03:59 Basophils % (Manual) 0 % (0.0-1.8) 06/15/19 03:59 Metamyelocytes % 0 % 06/15/19 03:59 Myelocytes % 0 % 06/15/19 03:59 Promyelocytes % 0 % 06/15/19 03:59 Blast Cells % 0 % 06/15/19 03:59 Nucleated RBC % 2.0 % (0.0-0.9) H 06/15/19 03:59 Seg Neutrophils # Man 2.1 K/mm3 (1.8-7.7) 06/15/19 03:59 Band Neutrophils # 0.0 K/mm3 06/15/19 03:59 Lymphocytes # (Manual) 1.8 K/mm3 (1.2-5.4) 06/15/19 03:59 Abs React Lymphs (Man) 0.0 K/mm3 06/15/19 03:59 Monocytes # (Manual) 0.1 K/mm3 (0.0-0.8) 06/15/19 03:59 Eosinophils # (Manual) 0.1 K/mm3 (0.0-0.4) 06/15/19 03:59 Basophils # (Manual) 0.0 K/mm3 (0.0-0.1) 06/15/19 03:59 Metamyelocytes # 0.0 K/mm3 06/15/19 03:59 Myelocytes # 0.0 K/mm3 06/15/19 03:59 Promyelocytes # 0.0 K/mm3 06/15/19 03:59 Blast Cells # 0.0 K/mm3 06/15/19 03:59 WBC Morphology Not Reportable 06/15/19 03:59 Hypersegmented Neuts Not Reportable 06/15/19 03:59 Hyposegmented Neuts Not Reportable 06/15/19 03:59 Hypogranular Neuts Not Reportable 06/15/19 03:59 Smudge Cells Not Reportable 06/15/19 03:59 Toxic Granulation Not Reportable 06/15/19 03:59 Toxic Vacuolation Not Reportable 06/15/19 03:59 Dohle Bodies Not Reportable 06/15/19 03:59 Pelger-Huet Anomaly Not Reportable 06/15/19 03:59 Leslie Rods Not Reportable 06/15/19 03:59 Platelet Estimate Consistent w auto 06/15/19 03:59 Clumped Platelets Not Reportable 06/15/19 03:59 Plt Clumps, EDTA Not Reportable 06/15/19 03:59 Large Platelets Not Reportable 06/15/19 03:59 Giant Platelets Not Reportable 06/15/19 03:59 Platelet Satelliting Not Reportable 06/15/19 03:59 Plt Morphology Comment Not Reportable 06/15/19 03:59 RBC Morphology Not Reportable 06/15/19 03:59 Dimorphic RBCs Not Reportable 06/15/19 03:59 Polychromasia Not Reportable 06/15/19 03:59 Hypochromasia 1+ 06/15/19 03:59 Poikilocytosis Not Reportable 06/15/19 03:59 Anisocytosis 1+ 06/15/19 03:59 Microcytosis Not Reportable 06/15/19 03:59 Macrocytosis Not Reportable 06/15/19 03:59 Spherocytes Not Reportable 06/15/19 03:59 Pappenheimer Bodies Not Reportable 06/15/19 03:59 Sickle Cells Not Reportable 06/15/19 03:59 Target Cells Few 06/15/19 03:59 Tear Drop Cells Few 06/15/19 03:59 Ovalocytes Few 06/15/19 03:59 Helmet Cells Not Reportable 06/15/19 03:59 [place] Bodies Not Reportable 06/15/19 03:59 [place] Rings Not Reportable 06/15/19 03:59 Nicolaus Cells Not Reportable 06/15/19 03:59 Bite Cells Not Reportable 06/15/19 03:59 Crenated Cell Not Reportable 06/15/19 03:59 Elliptocytes Not Reportable 06/15/19 03:59 Acanthocytes (Spur) Not Reportable 06/15/19 03:59 Rouleaux Not Reportable 06/15/19 03:59 Hemoglobin C Crystals Not Reportable 06/15/19 03:59 Schistocytes Rare 06/15/19 03:59 Malaria parasites Not Reportable 06/15/19 03:59 Cliff Bodies Not Reportable 06/15/19 03:59 Hem Pathologist Commnt No 06/15/19 03:59 PT 23.1 Sec. (12.2-14.9) H 06/21/19 09:00 INR 2.09 (0.87-1.13) H 06/21/19 09:00 APTT 37.7 Sec. (24.2-36.6) H 06/14/19 05:13 Sodium 136 mmol/L (137-145) L 06/20/19 08:56 Potassium 4.6 mmol/L (3.6-5.0) 06/20/19 08:56 Chloride 94.3 mmol/L (98-107) L 06/20/19 08:56 Carbon Dioxide 24 mmol/L (22-30) 06/20/19 08:56 Anion Gap 22 mmol/L 06/20/19 08:56 BUN 36 mg/dL (9-20) H 06/20/19 08:56 Creatinine 1.3 mg/dL (0.8-1.5) 06/20/19 08:56 Estimated GFR > 60 ml/min 06/20/19 08:56 BUN/Creatinine Ratio 28 % 06/20/19 08:56 Glucose 141 mg/dL (75-100) H 06/20/19 08:56 POC Glucose 91 (70-105) 06/21/19 08:01 Calcium 9.7 mg/dL (8.4-10.2) 06/20/19 08:56 Magnesium 2.20 mg/dL (1.7-2.3) 06/17/19 04:12 Troponin T < 0.010 ng/mL (0.00-0.029) 06/14/19 07:48 NT-Pro-B Natriuret Pep 1663 pg/mL (0-450) H 06/14/19 05:13 Triglycerides 55 mg/dL (2-149) 06/14/19 07:48 Cholesterol 80 mg/dL (50-199) 06/14/19 07:48 LDL Cholesterol Direct 32 mg/dL (50-130) L 06/14/19 07:48 HDL Cholesterol 43 mg/dL (40-59) 06/14/19 07:48 Cholesterol/HDL Ratio 1.86 % 06/14/19 07:48 Active Medications - Current Medications Current Medications: Generic Name Dose Route Start Last Admin Trade Name Freq PRN Reason Stop Dose Admin Acetaminophen 650 mg 06/14/19 08:10 Tylenol PO Q4H PRN Pain MILD(1-3)/Fever >100.5/ROBERSON Albuterol 2.5 mg 06/14/19 08:10 Proventil IH Q3HRT PRN Shortness Of Breath Albuterol/Ipratropium 1 ampul 06/19/19 08:00 06/21/19 07:55 Duoneb *Not For Prn Use* IH 1 ampul TIDRT CODY Administration Aspirin 81 mg 06/14/19 10:00 06/21/19 09:53 Halfprin Ec PO 81 mg DAILY CODY Administration Atorvastatin Calcium 40 mg 06/14/19 22:00 06/20/19 23:32 Lipitor PO 40 mg QHS CODY Administration Bumetanide 3 mg 06/20/19 13:00 06/20/19 14:00 Bumex PO 3 mg QDAY CODY Administration Carvedilol 3.125 mg 06/14/19 10:00 06/21/19 09:54 Coreg PO Not Given BID CODY Dextrose 50 ml 06/15/19 17:01 D50w (25gm) Syringe IV Q30MIN PRN Hypoglycemia Protocol Ergocalciferol 50,000 unit 06/21/19 10:00 06/21/19 09:54 Vitamin D2 PO 50,000 unit Mo CODY Administration Insulin Human Regular 0 units 06/15/19 22:00 06/21/19 09:00 Humulin R SUB-Q Not Given ACHS [facility] Protocol Metolazone 5 mg 06/17/19 11:00 06/20/19 09:05 Zaroxolyn PO 5 mg QDAY CODY Administration Naloxone HCl 0.1 mg 06/14/19 08:10 Naloxone IV Q2MIN PRN Res Rate </= 8 or 02 SAT < 92% Nitroglycerin 0.4 mg 06/14/19 05:00 Nitrostat SL .Q5MIN PRN Chest Pain Ondansetron HCl 4 mg 06/14/19 08:10 Zofran IV Q8H PRN Nausea And Vomiting Oxycodone HCl 10 mg 06/14/19 15:00 06/21/19 05:25 Roxicodone PO 10 mg Q6HR PRN Administration Pain, Severe (7-10) Oxycodone/Acetaminophen 1 tab 06/14/19 08:10 06/21/19 09:53 Percocet 5/325 PO 1 tab Q6H PRN Administration Pain, Moderate (4-6) Sodium Chloride 10 ml 06/14/19 10:00 06/21/19 09:55 Sodium Chloride Flush Syringe 10 Ml IV 10 ml BID CODY Administration Sodium Chloride 10 ml 06/14/19 08:10 06/15/19 06:30 Sodium Chloride Flush Syringe 10 Ml IV 06/24/19 08:09 10 ml PRN PRN Administration LINE FLUSH Spironolactone 25 mg 06/14/19 10:00 06/21/19 09:54 Aldactone PO 25 mg QDAY CODY Administration Warfarin Sodium 10 mg 06/20/19 17:00 06/20/19 16:58 Coumadin PO 10 mg DAILY@1700 CODY Administration Nutrition/Malnutrition Assess - Dietary Evaluation Nutrition/Malnutrition Findings: Nutrition Notes Start: 06/15/19 11:58 Freq: Status: Active Protocol: Document 06/15/19 11:58 CT (Rec: 06/15/19 12:03 CT [id number]) Co-Sign 06/15/19 11:58 LP Nutrition Notes Need for Assessment generated from: Education Initial or Follow up Brief Note Current Diagnosis Acute Kidney Injury,Diabetes, Hypertension,Heart Failure Other Pertinent Diagnosis RLE DVT, Bilat LE edema, Current Diet Cardiac consistent CHO Labs/Tests Na 136 BUN 45 Creatinine 1.8 POC Glu 109 Pertinent Medications Bumex Lipitor Coumadin Height 6 ft 1 in Weight 250.8 kg Usual Body Weight 213.188 kg [place] Body Weight (kg) 83.63 BMI 72.9 Intake Prior to Admission Good Weight Status Morbidly Obese Subjective/Other Information Consult for Coumadin and heart failure diet. Pt stated that he has received education for those topics previously and did not want more. Handouts were left for pt to read over. Pt stated that the portions are small, and that he gets hungry in the middle of the night. Ordered double protein for the pt. Burn Absent Trauma Absent GI Symptoms None Current % PO Good (75-100%) Minimum of two criteria No physical signs of malnutrition Nutrition Intervention Anticipated Discharge Needs: Cardiac/consistent CHO Revisit per MD consult or patient Sign Off request:
--- NOTE | 2019-06-21 13:13 | Progress Note ---
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 Monitor renal indices. Hopeful d/c tomorrow. The patient has been seen in conjunction with Dr. Bowling who agrees with the assessment and plan of care. Subjective Date of service: 06/21/19 Principal diagnosis: HF Interval history: pt resting in bed, no current complaints, BLE edema improving. in SR on tele with freq PVCs and NSVT. Objective Last Vital Signs Temp 97.9 F 06/21/19 12:05 Pulse 45 L 06/21/19 12:05 Resp 18 06/21/19 12:05 BP 105/67 06/21/19 12:05 Pulse Ox 94 06/21/19 12:05 - Physical Examination General: No Apparent Distress HEENT: Positive: PERRL, Normocephaly, Mucus Membranes Moist Neck: Positive: neck supple, trachea midline Cardiac: Positive: Reg Rate and Rhythm, S1/S2 Lungs: Positive: Decreased Breath Sounds Neuro: Positive: Grossly Intact Abdomen: Positive: Unremarkable. Negative: Tender /Rectal: Other (scrotal edema) Skin: Positive: Clear. Negative: Rash Musculoskeletal: No Pain Extremities: Present: +2 Edema (BLE) - Labs and Meds Coagulation 06/20/19 06/21/19 Range/Units 13:24 09:00 PT 21.6 H 23.1 H (12.2-14.9) Sec. INR 1.92 H 2.09 H (0.87-1.13) - Imaging and Cardiology EKG: report reviewed, image reviewed Echo: report reviewed (03/03/2019 showed EF 15-20%, LV severely dilated, grade 2 diastolic dysfunction, mild to mod TR, mild to mod MR, mod reduced RV systolic function, RVSP 57mmHg. ) Cardiac cath: report reviewed (Pt underwent LHC and RHC at [facility] on 10/24/2017 which showed angiographically normal coronary arteries, normal right-sided filling pressures with a mean RA pressure of 5 mmHg, mildly elevated pulmonary artery pressures with a mean PA pressure of 27 mmHg and PA pressure was 38/16mmHG, mildly elevated left-sided filling pressures with a mean PCWP of 18 mmHg with a directly measured LVEDP of 20 mmHg, normal cardiac output with a CO of 5.74 L/min with a cardiac index of 1.82 L/min/m2 using a the Albaro equation.) - EKG Sinus rhythms and dysrhythmias: sinus rhythm Ventricular dysrhythmias: ventricular premature com
[2019-06-21] MEDS: metOLazone 5 MG TAB PO SCH (14:13)
[2019-06-21] MEDS: BUMETANIDE 1 MG TAB PO SCH (14:13)
[2019-06-21] MEDS: BUMETANIDE 1 MG/4 ML INJ IV SCH (17:11)
[2019-06-21] MEDS: WARFARIN 10 MG TAB PO SCH (17:12)
[2019-06-22] MEDS: oxyCODONE /ACETAMINOPHEN 5-325MG TAB PO PRN ×4 (00:03→23:45)
[2019-06-22] MEDS: oxyCODONE 5 MG TAB PO PRN ×4 (03:52→20:21)
[2019-06-22 06:01] LABS: INR 2.34 (0.87-1.13)
[2019-06-22 06:15] LABS: BUN/Creatinine Ratio 30; Blood Urea Nitrogen 45 mg/dL (9-20); Calcium 9.3 mg/dL (8.4-10.2); Hemolysis Index 4
[2019-06-22] MEDS: IPRATROPIUM/ALBUTEROL SULFATE 3 ML AMPUL.NEB IH SCH ×3 (07:41→20:19)
[2019-06-22] MEDS: INSULIN REGULAR, HUMAN 100 UNITS/1 ML SUB-Q SCH ×4 (08:18→22:16)
[2019-06-22] MEDS: BUMETANIDE 1 MG/4 ML INJ IV SCH (09:22)
[2019-06-22] MEDS: carvediloL 3.125 MG TAB PO SCH ×2 (09:27→22:14)
[2019-06-22] MEDS: SACUBITRIL/VALSARTAN 49-51 MG TAB PO SCH ×2 (09:27→22:15)
[2019-06-22] MEDS: metOLazone 5 MG TAB PO SCH (09:29)
[2019-06-22] MEDS: ASPIRIN EC 81 MG TAB PO SCH (09:29)
[2019-06-22] MEDS: SPIRONOLACTONE 25 MG TAB PO SCH (09:30)
--- NOTE | 2019-06-22 10:33 | Progress Note ---
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 Pt may discharge home from cardiology standpoint. At discharge, recommend reducing zaroxolyn to 2.5mg daily, cont Bumex 3mg daily, cont all other present cardiac management. Recommend pt follow up with either [facility] or in our office with Dr. Domínguez within 3-5 days of discharge ([phone]). Pt verbalizes understanding. The patient has been seen in conjunction with Dr. Bowling who agrees with the assessment and plan of care. Subjective Date of service: 06/22/19 Principal diagnosis: HF Interval history: pt resting in bed, no current complaints, BLE edema improving. in SR on tele with freq PVCs and NSVT. Objective Last Vital Signs Temp 97.8 F 06/22/19 08:00 Pulse 82 06/22/19 08:49 Resp 20 06/22/19 08:19 BP 98/67 06/22/19 08:00 Pulse Ox 96 06/22/19 08:19 - Physical Examination General: No Apparent Distress HEENT: Positive: PERRL, Normocephaly, Mucus Membranes Moist Neck: Positive: neck supple, trachea midline Cardiac: Positive: Reg Rate and Rhythm, S1/S2 Lungs: Positive: Decreased Breath Sounds Neuro: Positive: Grossly Intact Abdomen: Positive: Unremarkable. Negative: Tender /Rectal: Other (scrotal edema) Skin: Positive: Clear. Negative: Rash Musculoskeletal: No Pain Extremities: Present: +2 Edema (BLE) - Labs and Meds Coagulation 06/22/19 Range/Units 04:54 PT 25.2 H (12.2-14.9) Sec. INR 2.34 H (0.87-1.13) Comprehensive Metabolic Panel 06/22/19 Range/Units 04:54 Sodium 135 L (137-145) mmol/L Potassium 4.7 (3.6-5.0) mmol/L Chloride 91.4 L (98-107) mmol/L Carbon Dioxide 29 (22-30) mmol/L BUN 45 H (9-20) mg/dL Creatinine 1.5 (0.8-1.5) mg/dL Glucose 107 H (75-100) mg/dL Calcium 9.3 (8.4-10.2) mg/dL - Imaging and Cardiology EKG: report reviewed, image reviewed Echo: report reviewed (03/03/2019 showed EF 15-20%, LV severely dilated, grade 2 diastolic dysfunction, mild to mod TR, mild to mod MR, mod reduced RV systolic function, RVSP 57mmHg. ) Cardiac cath: report reviewed (Pt underwent LHC and RHC at [place] on 10/24/2017 which showed angiographically normal coronary arteries, normal right-sided filling pressures with a mean RA pressure of 5 mmHg, mildly elevated pulmonary artery pressures with a mean PA pressure of 27 mmHg and PA pressure was 38/16mmHG, mildly elevated left-sided filling pressures with a mean PCWP of 18 mmHg with a directly measured LVEDP of 20 mmHg, normal cardiac output with a CO of 5.74 L/min with a cardiac index of 1.82 L/min/m2 using a the Albaro equation.) - EKG Sinus rhythms and dysrhythmias: sinus rhythm Ventricular dysrhythmias: ventricular premature com
--- NOTE | 2019-06-22 13:07 | Discharge Summary ---
Providers - Providers Date of Admission: 06/14/19 07:15 Date of discharge: 06/22/19 Attending physician: JAMIE ROE 06/14/19 08:10 Consult to Physician [CONS] Routine Comment: Consulting Provider: MECHELLE CARLSON Physician Instructions: Reason For Exam: heart failure Primary care physician: GATEMAN Hospitalization Reason for admission: Acute on chronic systolic heart failure with EF of 10-15% Condition: Fair Hospital course: Acute on chronic systolic heart failure with EF of 10-15% -AICD in situ -On CHF protocol -Gradually improving, continue IV Bumex, Coreg, entresto and aldactone -Cardiology following REJI -Probably cardiorenal syndrome -Improving on IV diuretics, will monitor creatinine level H/O RLE DVT on anticoagulation with Coumadin -Continue Coumadin -INR level therapeutic, will monitor Arrhythmia (Frequent PVCs and NSVT) -Continue Coreg -Continue telemetry monitoring Hyponatremia -Improving -Cont oral fluid restriction, will monitor sodium level HTN -Controlled on meds DM2 -Stable -On SSI Chronic Lymphedema -For outpatient follow-up AOCD -H&H stable H/o A/Flutter -s/p ablation on 05/19/2019 -Heart rate controlled Chronic respiratory failure with hypoxia -Continue oxygen supplementation as needed -On home oxygen, 2 L Morbid obesity with BMI of 72.9 -Lifestyle modification recommended Obesity hypoventilation syndrome/Suspected CAITLYN Disposition: DC-01 TO HOME OR SELFCARE Exam - Constitutional Vitals: Temp Pulse Resp BP Pulse Ox 97.8 F 82 20 98/67 96 06/22/19 08:00 06/22/19 08:49 06/22/19 08:19 06/22/19 08:00 06/22/19 08:19 Plan Follow up with: PRIMARY CARE, [Primary Care Provider] - 3-5 Days Forms: Warfarin Discharge Instruction Prescriptions: Spironolactone [Aldactone] 25 mg PO QDAY #90 tablet Bumetanide [Bumex 1 mg tab] 3 mg PO QDAY #90 tablet carvediloL [Coreg] 3.125 mg PO BID #60 tablet Warfarin [Coumadin] 10 mg PO DAILY@1700 #30 tablet metFORMIN XR [Glucophage XR] 500 mg PO QDAY #90 tab oxyCODONE /ACETAMINOPHEN [Percocet 5/325 mg] 1 tab PO Q6H PRN #14 tablet PRN Reason: Pain, Moderate (4-6) metOLazone [Zaroxolyn] 5 mg PO QDAY #30 tablet
--- NOTE | 2019-06-22 13:46 | Event Note ---
Date: 06/22/19 Pt c/o dizziness with positional changes, orthostatics obtained - SBP 130s while sitting and 100s when standing. Will convert IV bumex to PO bumex and d'c zaroxolyn and monitor overnight. Pt is agreeable. Felicia MEYER NP / DR. PEREZ
--- NOTE | 2019-06-22 14:05 | Progress Note ---
Assessment and Plan Assessment and plan: Acute on chronic systolic heart failure with EF of 10-15% -AICD in situ -improved -continue oral Bumex, Coreg, entresto and aldactone -Cardiology following Orthostatic hypotensive ( SBP 130s while sitting and 100s while standing) -likely related to IV diuretic use -will monitor orthostatic vitals REJI -Probably cardiorenal syndrome v vasomotor nephropathy -resolved H/O RLE DVT on anticoagulation with Coumadin -Continue Coumadin -INR level therapeutic Arrhythmia (Frequent PVCs and NSVT) -Continue Coreg -Continue telemetry monitoring Hyponatremia -Improved -Cont oral fluid restriction HTN -Controlled on meds DM2 -Stable -On SSI Chronic Lymphedema -For outpatient follow-up AOCD -H&H stable H/o A/Flutter -s/p ablation on 05/19/2019 -Heart rate controlled Chronic respiratory failure with hypoxia -Continue oxygen supplementation as needed -On home oxygen, 2 L Morbid obesity with BMI of 72.9 -Lifestyle modification recommended Obesity hypoventilation syndrome/Suspected CAITLYN -Outpatient sleep study recommended Disposition: will monitor pt for another 24 hrs due to the orthostatic hypotension and plan to d/c in am if clinically stable History Interval history: Pt reported lightheadedness today. He denied chest pain or marked sob Hospitalist Physical - Constitutional Vitals: Temp Pulse Resp BP Pulse Ox 97.8 F 55 L 16 98/67 96 06/22/19 08:00 06/22/19 13:14 06/22/19 13:14 06/22/19 08:00 06/22/19 08:19 General appearance: Present: no acute distress, obese - EENT Eyes: Present: PERRL, EOM intact ENT: hearing intact, clear oral mucosa - Neck Neck: Present: supple - Respiratory Respiratory effort: normal Respiratory: bilateral: diminished - Cardiovascular Rhythm: regular Heart Sounds: Present: S1 & S2 - Extremities Extremity abnormal: edema (in BLE) - Abdominal General gastrointestinal: soft, non-tender, normal bowel sounds - Integumentary Integumentary: Present: warm - Psychiatric Psychiatric: appropriate mood/affect - Neurologic Neurologic: moves all extremities Results - Labs CBC & Chem 7: 06/20/19 08:56 06/22/19 04:54 Labs: Laboratory Last Values WBC 4.6 K/mm3 (4.5-11.0) 06/20/19 08:56 RBC 5.35 M/mm3 (3.65-5.03) H 06/20/19 08:56 Hgb 11.9 gm/dl (11.8-15.2) 06/20/19 08:56 Hct 39.4 % (35.5-45.6) 06/20/19 08:56 MCV 74 fl (84-94) L 06/20/19 08:56 MCH 22 pg (28-32) L 06/20/19 08:56 MCHC 30 % (32-34) L 06/20/19 08:56 RDW 21.3 % (13.2-15.2) H 06/20/19 08:56 Plt Count 252 K/mm3 (140-440) 06/20/19 08:56 Add Manual Diff Complete 06/15/19 03:59 Total Counted 100 06/15/19 03:59 Seg Neuts % (Manual) 50.0 % (40.0-70.0) 06/15/19 03:59 Band Neutrophils % 0 % 06/15/19 03:59 Lymphocytes % (Manual) 43.0 % (13.4-35.0) H 06/15/19 03:59 Reactive Lymphs % (Man) 1.0 % 06/15/19 03:59 Monocytes % (Manual) 3.0 % (0.0-7.3) 06/15/19 03:59 Eosinophils % (Manual) 3.0 % (0.0-4.3) 06/15/19 03:59 Basophils % (Manual) 0 % (0.0-1.8) 06/15/19 03:59 Metamyelocytes % 0 % 06/15/19 03:59 Myelocytes % 0 % 06/15/19 03:59 Promyelocytes % 0 % 06/15/19 03:59 Blast Cells % 0 % 06/15/19 03:59 Nucleated RBC % 2.0 % (0.0-0.9) H 06/15/19 03:59 Seg Neutrophils # Man 2.1 K/mm3 (1.8-7.7) 06/15/19 03:59 Band Neutrophils # 0.0 K/mm3 06/15/19 03:59 Lymphocytes # (Manual) 1.8 K/mm3 (1.2-5.4) 06/15/19 03:59 Abs React Lymphs (Man) 0.0 K/mm3 06/15/19 03:59 Monocytes # (Manual) 0.1 K/mm3 (0.0-0.8) 06/15/19 03:59 Eosinophils # (Manual) 0.1 K/mm3 (0.0-0.4) 06/15/19 03:59 Basophils # (Manual) 0.0 K/mm3 (0.0-0.1) 06/15/19 03:59 Metamyelocytes # 0.0 K/mm3 06/15/19 03:59 Myelocytes # 0.0 K/mm3 06/15/19 03:59 Promyelocytes # 0.0 K/mm3 06/15/19 03:59 Blast Cells # 0.0 K/mm3 06/15/19 03:59 WBC Morphology Not Reportable 06/15/19 03:59 Hypersegmented Neuts Not Reportable 06/15/19 03:59 Hyposegmented Neuts Not Reportable 06/15/19 03:59 Hypogranular Neuts Not Reportable 06/15/19 03:59 Smudge Cells Not Reportable 06/15/19 03:59 Toxic Granulation Not Reportable 06/15/19 03:59 Toxic Vacuolation Not Reportable 06/15/19 03:59 Dohle Bodies Not Reportable 06/15/19 03:59 Pelger-Huet Anomaly Not Reportable 06/15/19 03:59 Leslie Rods Not Reportable 06/15/19 03:59 Platelet Estimate Consistent w auto 06/15/19 03:59 Clumped Platelets Not Reportable 06/15/19 03:59 Plt Clumps, EDTA Not Reportable 06/15/19 03:59 Large Platelets Not Reportable 06/15/19 03:59 Giant Platelets Not Reportable 06/15/19 03:59 Platelet Satelliting Not Reportable 06/15/19 03:59 Plt Morphology Comment Not Reportable 06/15/19 03:59 RBC Morphology Not Reportable 06/15/19 03:59 Dimorphic RBCs Not Reportable 06/15/19 03:59 Polychromasia Not Reportable 06/15/19 03:59 Hypochromasia 1+ 06/15/19 03:59 Poikilocytosis Not Reportable 06/15/19 03:59 Anisocytosis 1+ 06/15/19 03:59 Microcytosis Not Reportable 06/15/19 03:59 Macrocytosis Not Reportable 06/15/19 03:59 Spherocytes Not Reportable 06/15/19 03:59 Pappenheimer Bodies Not Reportable 06/15/19 03:59 Sickle Cells Not Reportable 06/15/19 03:59 Target Cells Few 06/15/19 03:59 Tear Drop Cells Few 06/15/19 03:59 Ovalocytes Few 06/15/19 03:59 Helmet Cells Not Reportable 06/15/19 03:59 [place] Bodies Not Reportable 06/15/19 03:59 [place] Rings Not Reportable 06/15/19 03:59 [place] Cells Not Reportable 06/15/19 03:59 Bite Cells Not Reportable 06/15/19 03:59 Crenated Cell Not Reportable 06/15/19 03:59 Elliptocytes Not Reportable 06/15/19 03:59 Acanthocytes (Spur) Not Reportable 06/15/19 03:59 Rouleaux Not Reportable 06/15/19 03:59 Hemoglobin C Crystals Not Reportable 06/15/19 03:59 Schistocytes Rare 06/15/19 03:59 Malaria parasites Not Reportable 06/15/19 03:59 Cliff Bodies Not Reportable 06/15/19 03:59 Hem Pathologist Commnt No 06/15/19 03:59 PT 25.2 Sec. (12.2-14.9) H 06/22/19 04:54 INR 2.34 (0.87-1.13) H 06/22/19 04:54 APTT 37.7 Sec. (24.2-36.6) H 06/14/19 05:13 Sodium 135 mmol/L (137-145) L 06/22/19 04:54 Potassium 4.7 mmol/L (3.6-5.0) 06/22/19 04:54 Chloride 91.4 mmol/L (98-107) L 06/22/19 04:54 Carbon Dioxide 29 mmol/L (22-30) 06/22/19 04:54 Anion Gap 19 mmol/L 06/22/19 04:54 BUN 45 mg/dL (9-20) H 06/22/19 04:54 Creatinine 1.5 mg/dL (0.8-1.5) 06/22/19 04:54 Estimated GFR > 60 ml/min 06/22/19 04:54 BUN/Creatinine Ratio 30 % 06/22/19 04:54 Glucose 107 mg/dL (75-100) H 06/22/19 04:54 POC Glucose 121 (70-105) H 06/22/19 12:10 Calcium 9.3 mg/dL (8.4-10.2) 06/22/19 04:54 Magnesium 2.20 mg/dL (1.7-2.3) 06/17/19 04:12 Troponin T < 0.010 ng/mL (0.00-0.029) 06/14/19 07:48 NT-Pro-B Natriuret Pep 1663 pg/mL (0-450) H 06/14/19 05:13 Triglycerides 55 mg/dL (2-149) 06/14/19 07:48 Cholesterol 80 mg/dL (50-199) 06/14/19 07:48 LDL Cholesterol Direct 32 mg/dL (50-130) L 06/14/19 07:48 HDL Cholesterol 43 mg/dL (40-59) 06/14/19 07:48 Cholesterol/HDL Ratio 1.86 % 06/14/19 07:48 Active Medications - Current Medications Current Medications: Generic Name Dose Route Start Last Admin Trade Name Freq PRN Reason Stop Dose Admin Acetaminophen 650 mg 06/14/19 08:10 Tylenol PO Q4H PRN Pain MILD(1-3)/Fever >100.5/ROBERSON Albuterol 2.5 mg 06/14/19 08:10 Proventil IH Q3HRT PRN Shortness Of Breath Albuterol/Ipratropium 1 ampul 06/19/19 08:00 06/22/19 13:08 Duoneb *Not For Prn Use* IH 1 ampul TIDRT CODY Administration Aspirin 81 mg 06/14/19 10:00 06/22/19 09:29 Halfprin Ec PO 81 mg DAILY CODY Administration Atorvastatin Calcium 40 mg 06/14/19 22:00 06/21/19 21:11 Lipitor PO 40 mg QHS CODY Administration Bumetanide 3 mg 06/23/19 10:00 Bumex PO QDAY CODY Carvedilol 3.125 mg 06/14/19 10:00 06/22/19 09:27 Coreg PO Not Given BID OCDY Dextrose 50 ml 06/15/19 17:01 D50w (25gm) Syringe IV Q30MIN PRN Hypoglycemia Protocol Ergocalciferol 50,000 unit 06/21/19 10:00 06/21/19 09:54 Vitamin D2 PO 50,000 unit Mo CODY Administration Insulin Human Regular 0 units 06/15/19 22:00 06/22/19 12:13 Humulin R SUB-Q Not Given ACHS [facility] Protocol Naloxone HCl 0.1 mg 06/14/19 08:10 Naloxone IV Q2MIN PRN Res Rate </= 8 or 02 SAT < 92% Nitroglycerin 0.4 mg 06/14/19 05:00 Nitrostat SL .Q5MIN PRN Chest Pain Ondansetron HCl 4 mg 06/14/19 08:10 Zofran IV Q8H PRN Nausea And Vomiting Oxycodone HCl 10 mg 06/14/19 15:00 06/22/19 13:47 Roxicodone PO 10 mg Q6HR PRN Administration Pain, Severe (7-10) Oxycodone/Acetaminophen 1 tab 06/14/19 08:10 06/22/19 10:06 Percocet 5/325 PO 1 tab Q6H PRN Administration Pain, Moderate (4-6) Sodium Chloride 10 ml 06/14/19 10:00 06/22/19 09:29 Sodium Chloride Flush Syringe 10 Ml IV 10 ml BID CODY Administration Sodium Chloride 10 ml 06/14/19 08:10 06/15/19 06:30 Sodium Chloride Flush Syringe 10 Ml IV 06/24/19 08:09 10 ml PRN PRN Administration LINE FLUSH Spironolactone 25 mg 06/14/19 10:00 06/22/19 09:30 Aldactone PO 25 mg QDAY CODY Administration Warfarin Sodium 10 mg 06/20/19 17:00 06/21/19 17:12 Coumadin PO 10 mg DAILY@1700 CODY Administration Nutrition/Malnutrition Assess - Dietary Evaluation Nutrition/Malnutrition Findings: Nutrition Notes Start: 06/15/19 11:58 Freq: Status: Active Protocol: Document 06/21/19 13:23 LP (Rec: 06/21/19 13:23 LP [email or web address]) Nutrition Notes Need for Assessment generated from: LOS Initial or Follow up Brief Note Subjective/Other Information Screen for LOS. Pt consuming 100% of meals. Nutrition Intervention Revisit per MD consult or patient Sign Off request:
[2019-06-22] MEDS: WARFARIN 10 MG TAB PO SCH (16:22)
[2019-06-23] MEDS: oxyCODONE 5 MG TAB PO PRN ×4 (04:27→23:30)
[2019-06-23 06:24] LABS: INR 2.33 (0.87-1.13)
[2019-06-23] MEDS: oxyCODONE /ACETAMINOPHEN 5-325MG TAB PO PRN ×3 (08:01→20:13)
[2019-06-23] MEDS: IPRATROPIUM/ALBUTEROL SULFATE 3 ML AMPUL.NEB IH SCH ×3 (08:12→21:16)
[2019-06-23] MEDS: INSULIN REGULAR, HUMAN 100 UNITS/1 ML SUB-Q SCH ×4 (08:43→22:18)
[2019-06-23] MEDS: SPIRONOLACTONE 25 MG TAB PO SCH (09:17)
[2019-06-23] MEDS: BUMETANIDE 1 MG TAB PO SCH (09:17)
[2019-06-23] MEDS: SACUBITRIL/VALSARTAN 49-51 MG TAB PO SCH ×2 (09:17→22:18)
[2019-06-23] MEDS: ASPIRIN EC 81 MG TAB PO SCH (09:17)
[2019-06-23] MEDS: carvediloL 3.125 MG TAB PO SCH ×2 (09:17→22:17)
--- NOTE | 2019-06-23 10:40 | Progress Note ---
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 Pt may discharge home from cardiology standpoint. At discharge, recommend PO bumex 1mg BID in addition to zaroxolyn 2.5mg daily, cont all other present cardiac management. Recommend pt follow up with either [place] or in our office with Dr. Domínguez within 3-5 days of discharge ([phone]). Pt verbalizes understanding. The patient has been seen in conjunction with Dr. Bowling who agrees with the assessment and plan of care. Subjective Date of service: 06/23/19 Principal diagnosis: HF Interval history: pt resting in bed, no current complaints, BLE edema improving. in SR on tele with freq PVCs and NSVT. pt reports near resolution of dizziness. Objective Last Vital Signs Temp 97.5 F L 06/23/19 08:07 Pulse 90 06/23/19 08:38 Resp 20 06/23/19 08:14 BP 145/76 06/23/19 08:07 Pulse Ox 96 06/23/19 08:14 - Physical Examination General: No Apparent Distress HEENT: Positive: PERRL, Normocephaly, Mucus Membranes Moist Neck: Positive: neck supple, trachea midline Cardiac: Positive: Reg Rate and Rhythm, S1/S2 Lungs: Positive: Decreased Breath Sounds Neuro: Positive: Grossly Intact Abdomen: Positive: Unremarkable. Negative: Tender /Rectal: Other (scrotal edema) Skin: Positive: Clear. Negative: Rash Musculoskeletal: No Pain Extremities: Present: +2 Edema (BLE) - Labs and Meds Coagulation 06/23/19 Range/Units 05:42 PT 25.1 H (12.2-14.9) Sec. INR 2.33 H (0.87-1.13) - Imaging and Cardiology EKG: report reviewed, image reviewed Echo: report reviewed (03/03/2019 showed EF 15-20%, LV severely dilated, grade 2 diastolic dysfunction, mild to mod TR, mild to mod MR, mod reduced RV systolic function, RVSP 57mmHg. ) Cardiac cath: report reviewed (Pt underwent LHC and RHC at [facility] on 10/24/2017 which showed angiographically normal coronary arteries, normal right-sided filling pressures with a mean RA pressure of 5 mmHg, mildly elevated pulmonary artery pressures with a mean PA pressure of 27 mmHg and PA pressure was 38/16mmHG, mildly elevated left-sided filling pressures with a mean PCWP of 18 mmHg with a directly measured LVEDP of 20 mmHg, normal cardiac output with a CO of 5.74 L/min with a cardiac index of 1.82 L/min/m2 using a the Albaro equation.) - EKG Sinus rhythms and dysrhythmias: sinus rhythm Ventricular dysrhythmias: ventricular premature com
[2019-06-23] MEDS: WARFARIN 10 MG TAB PO SCH (17:15)
--- NOTE | 2019-06-23 17:31 | Progress Note ---
Assessment and Plan Acute on chronic systolic heart failure with EF of 10-15% -AICD in situ -improved -continue oral Bumex, Coreg, entresto and aldactone -Cardiology following Orthostatic hypotensive ( SBP 130s while sitting and 100s while standing) -likely related to IV diuretic use -will monitor orthostatic vitals REJI -Probably cardiorenal syndrome v vasomotor nephropathy -resolved H/O RLE DVT on anticoagulation with Coumadin -Continue Coumadin -INR level therapeutic Arrhythmia (Frequent PVCs and NSVT) -Continue Coreg -Continue telemetry monitoring Hyponatremia -Improved -Cont oral fluid restriction HTN -Controlled on meds DM2 -Stable -On SSI Chronic Lymphedema -For outpatient follow-up AOCD -H&H stable H/o A/Flutter -s/p ablation on 05/19/2019 -Heart rate controlled Chronic respiratory failure with hypoxia -Continue oxygen supplementation as needed -On home oxygen, 2 L Morbid obesity with BMI of 72.9 -Lifestyle modification recommended Obesity hypoventilation syndrome/Suspected CAITLYN -Outpatient sleep study recommended Disposition:Stable for discharge in AM Subjective Date of service: 06/23/19 Principal diagnosis: CHF exacerbation Interval history: Marked improvement Objective - Constitutional Vitals: Vital Signs - 12hr 06/23/19 06/23/19 06/23/19 07:00 08:07 08:14 Temperature 97.5 F L Pulse Rate 94 H Pulse Rate [ 93 H Bilateral Throughout] Respiratory 20 18 Rate Respiratory 20 Rate [Bilateral Throughout] Blood Pressure 145/76 O2 Sat by Pulse 96 98 96 Oximetry 06/23/19 06/23/19 08:38 14:00 Temperature Pulse Rate 90 Pulse Rate [ 92 H Bilateral Throughout] Respiratory Rate Respiratory 20 Rate [Bilateral Throughout] Blood Pressure O2 Sat by Pulse Oximetry General appearance: Present: no acute distress, well-nourished - EENT Eyes: PERRL, EOM intact ENT: hearing intact, clear oral mucosa Ears: bilateral: normal - Neck Neck: supple, normal ROM - Respiratory Respiratory effort: normal Respiratory: bilateral: CTA - Breasts Breasts: normal - Cardiovascular Heart rate: 78 Rhythm: regular Heart Sounds: Present: S1 & S2. Absent: gallop, rub Extremities: pulses intact, No edema, normal color, Full ROM - Gastrointestinal General gastrointestinal: Present: soft, non-tender, non-distended, normal bowel sounds - Genitourinary Male genitourinary: normal - Integumentary Integumentary: clear, warm, dry - Musculoskeletal Musculoskeletal: 1, strength equal bilaterally - Neurologic Neurologic: moves all extremities - Psychiatric Psychiatric: memory intact, appropriate mood/affect, intact judgment & insight - Labs CBC & Chem 7: 06/20/19 08:56 06/22/19 04:54 Labs: Abnormal lab results 06/22/19 06/23/19 Range/Units 20:22 05:42 PT 25.1 H (12.2-14.9) Sec. INR 2.33 H (0.87-1.13) POC Glucose 147 H (70-105)
[2019-06-24] MEDS: oxyCODONE /ACETAMINOPHEN 5-325MG TAB PO PRN ×3 (04:19→17:29)
[2019-06-24] MEDS: oxyCODONE 5 MG TAB PO PRN ×3 (07:53→20:46)
--- NOTE | 2019-06-24 07:54 | Discharge Summary ---
Providers - Providers Date of Admission: 06/14/19 07:15 Date of discharge: 06/24/19 Attending physician: CONRAD MEJIA 06/14/19 08:10 Consult to Physician [CONS] Routine Comment: Consulting Provider: MECHELLE CARLSON Physician Instructions: Reason For Exam: heart failure Primary care physician: BUILDING APPRAISER Hospitalization Condition: Fair Hospital course: Patient is a 34-year-old -[place] male with a history of morbid obesity, chronic systolic heart failure, dilated nonischemic cardiac myopathy, ICD in situ, frequent premature ventricular contractions, hypertension, diabetes, right lower extremity DVT, on permanent Coumadin therapy, had a cardiac catheterization in October 2017, which showed angiographically normal coronary arteries. Patient states that since Thanksgiving with 4 days prior to his arrival patient has had progressively worsening leg swelling shortness of breath orthopnea. He believes the thanksgiving [place] propably had more salt than normal for him. Patient states he woke up from sleep tonight with inability to breathe. They spoke him sweat and was having chest discomfort. Patient's had occasional chest discomfort last several days mostly with exertion. Patient states his weight is approximate 40 pounds over his dry weight. Patient states it was taken extra torsemide order to help with his shortness of breath as well as his leg swelling. Patient states chest pain is a light pressure sensation is 4 out of 10 in severity but is constant. He denies fevers chills nausea vomiting or diarrhea. During prior hospitalization. EF is noted to be 10-15% and patient has has had extensive dicussion about losing weight. He also is above the weight limit for some work up at out facility PMH: Morbid obesity, chronic systolic heart failure, dilated nonischemic cardiac myopathy, ICD in situ, frequent premature ventricular contractions, hypertension, diabetes, right lower extremity DVT Past History Past Medical History: diabetes, hyperthyroidism, hypertension, hyperlipidemia, other Past Surgical History: Other Social history: no significant social history, Family history: no significant family history Acute on chronic systolic heart failure with EF of 10-15% -AICD in situ -improved -continue oral Bumex, Coreg, entresto and aldactone -D/chome today Orthostatic hypotensive ( SBP 130s while sitting and 100s while standing) -Improved REJI -Probably cardiorenal syndrome v vasomotor nephropathy -resolved H/O RLE DVT on anticoagulation with Coumadin -Continue Coumadin -INR level therapeutic Arrhythmia (Frequent PVCs and NSVT) -Continue Coreg Hyponatremia -Improved HTN -Controlled on meds DM2 -Stable Chronic Lymphedema -For outpatient follow-up AOCD -H&H stable H/o A/Flutter -s/p ablation on 05/19/2019 -Heart rate controlled Chronic respiratory failure with hypoxia -Continue oxygen supplementation as needed -On home oxygen, 2 L Morbid obesity with BMI of 72.9 -Lifestyle modification recommended Obesity hypoventilation syndrome/Suspected CAITLYN -Outpatient sleep study recommended Disposition:Stable for discharge i Disposition: DC-01 TO HOME OR SELFCARE Core Measure Documentation - Palliative Care Palliative Care/ Comfort Measures: Not Applicable - Core Measures Any of the following diagnoses?: none Exam - Physical Exam Narrative exam: Morbidly Obese individual - Constitutional Vitals: Temp Pulse Resp BP Pulse Ox 98.2 F 93 H 20 98/66 98 06/24/19 04:07 06/24/19 04:07 06/24/19 04:19 06/24/19 04:07 06/24/19 04:07 General appearance: Present: no acute distress, well-nourished - EENT Eyes: Present: PERRL ENT: hearing intact, clear oral mucosa - Neck Neck: Present: supple, normal ROM - Respiratory Respiratory effort: normal Respiratory: bilateral: CTA - Cardiovascular Heart rate: 78 Rhythm: regular Heart Sounds: Present: S1 & S2. Absent: rub, click - Extremities Extremities: no ischemia, pulses symmetrical, No edema Peripheral Pulses: within normal limits - Abdominal General gastrointestinal: Present: soft, non-tender, non-distended, normal bowel sounds Male genitourinary: Present: normal - Integumentary Integumentary: Present: clear, warm, dry - Musculoskeletal Musculoskeletal: gait normal, strength equal bilaterally - Psychiatric Psychiatric: appropriate mood/affect, intact judgment & insight - Neurologic Neurologic: CNII-XII intact, moves all extremities - Allied Health Allied health notes reviewed: nursing, case management Plan Follow up with: PRIMARY CARE, [Primary Care Provider] - 3-5 Days Forms: Warfarin Discharge Instruction Prescriptions: Spironolactone [Aldactone] 25 mg PO QDAY #90 tablet Bumetanide [Bumex 1 mg tab] 3 mg PO QDAY #90 tablet carvediloL [Coreg] 3.125 mg PO BID #60 tablet Warfarin [Coumadin] 10 mg PO DAILY@1700 #30 tablet metFORMIN XR [Glucophage XR] 500 mg PO QDAY #90 tab oxyCODONE /ACETAMINOPHEN [Percocet 5/325 mg] 1 tab PO Q6H PRN #14 tablet PRN Reason: Pain, Moderate (4-6) metOLazone [Zaroxolyn] 5 mg PO QDAY #30 tablet
[2019-06-24] MEDS: INSULIN REGULAR, HUMAN 100 UNITS/1 ML SUB-Q SCH ×4 (08:00→22:20)
[2019-06-24 08:32] LABS: INR 2.09 (0.87-1.13)
[2019-06-24] MEDS: IPRATROPIUM/ALBUTEROL SULFATE 3 ML AMPUL.NEB IH SCH ×3 (09:12→21:38)
[2019-06-24] MEDS: ASPIRIN EC 81 MG TAB PO SCH (09:30)
[2019-06-24] MEDS: carvediloL 3.125 MG TAB PO SCH ×3 (09:30→22:20)
[2019-06-24] MEDS: SPIRONOLACTONE 25 MG TAB PO SCH (09:30)
[2019-06-24] MEDS: SACUBITRIL/VALSARTAN 49-51 MG TAB PO SCH ×3 (09:31→22:20)
[2019-06-24] MEDS: BUMETANIDE 1 MG TAB PO SCH (09:31)
[2019-06-24] MEDS: WARFARIN 10 MG TAB PO SCH (17:29)
[2019-06-25] MEDS: oxyCODONE /ACETAMINOPHEN 5-325MG TAB PO PRN ×3 (00:16→11:30)
[2019-06-25] MEDS: oxyCODONE 5 MG TAB PO PRN ×2 (03:24→09:44)
[2019-06-25] MEDS: NITROGLYCERIN 0.4 MG TAB SUBL SL PRN ×2 (04:35→04:45)
[2019-06-25] MEDS: INSULIN REGULAR, HUMAN 100 UNITS/1 ML SUB-Q SCH ×2 (07:30→12:14)
[2019-06-25 07:52] LABS: INR 2.24 (0.87-1.13)
[2019-06-25] MEDS: IPRATROPIUM/ALBUTEROL SULFATE 3 ML AMPUL.NEB IH SCH ×2 (09:11→14:19)
[2019-06-25] MEDS: BUMETANIDE 1 MG TAB PO SCH (09:42)
[2019-06-25] MEDS: SACUBITRIL/VALSARTAN 49-51 MG TAB PO SCH (09:42)
[2019-06-25] MEDS: SPIRONOLACTONE 25 MG TAB PO SCH (09:44)
[2019-06-25] MEDS: ASPIRIN EC 81 MG TAB PO SCH (09:45)
[2019-06-25] MEDS: carvediloL 3.125 MG TAB PO SCH (09:45)
[2019-06-25 09:46] VITALS: BP 110/70
--- NOTE | 2019-06-25 10:59 | Progress Note ---
Assessment and Plan Assessment and plan: Acute on chronic systolic heart failure with EF of 10-15% -AICD in situ -improved -continue oral Bumex, Coreg, entresto and aldactone -Cardiology following Orthostatic hypotensive ( SBP 130s while sitting and 100s while standing) -likely related to IV diuretic use -will monitor orthostatic vitals REJI -Probably cardiorenal syndrome v vasomotor nephropathy -resolved H/O RLE DVT on anticoagulation with Coumadin -Continue Coumadin -INR level therapeutic Arrhythmia (Frequent PVCs and NSVT) -Continue Coreg -Continue telemetry monitoring Hyponatremia -Improved -Cont oral fluid restriction HTN -Controlled on meds DM2 -Stable -On SSI Chronic Lymphedema -For outpatient follow-up AOCD -H&H stable H/o A/Flutter -s/p ablation on 05/19/2019 -Heart rate controlled Chronic respiratory failure with hypoxia -Continue oxygen supplementation as needed -On home oxygen, 2 L Morbid obesity with BMI of 72.9 -Lifestyle modification recommended Obesity hypoventilation syndrome/Suspected CAITLYN -Outpatient sleep study recommended Disposition:Stable for discharge in AM History Interval history: no new issues Hospitalist Physical - Constitutional Vitals: Temp Pulse Resp BP Pulse Ox 98.0 F 90 20 110/70 98 06/25/19 04:38 06/25/19 10:00 06/25/19 09:44 06/25/19 09:45 06/25/19 08:09 General appearance: Present: no acute distress, well-nourished - EENT Eyes: Present: PERRL, EOM intact ENT: hearing intact, clear oral mucosa, dentition normal - Neck Neck: Present: supple, normal ROM - Respiratory Respiratory effort: normal Respiratory: bilateral: CTA - Cardiovascular Rhythm: regular Heart Sounds: Present: S1 & S2. Absent: gallop, rub - Extremities Extremities: no ischemia, No edema, Full ROM - Abdominal General gastrointestinal: soft, non-tender, non-distended, normal bowel sounds - Integumentary Integumentary: Present: clear, warm, dry - Neurologic Neurologic: CNII-XII intact, moves all extremities Results - Labs CBC & Chem 7: 06/20/19 08:56 06/22/19 04:54 Labs: Laboratory Last Values WBC 4.6 K/mm3 (4.5-11.0) 06/20/19 08:56 RBC 5.35 M/mm3 (3.65-5.03) H 06/20/19 08:56 Hgb 11.9 gm/dl (11.8-15.2) 06/20/19 08:56 Hct 39.4 % (35.5-45.6) 06/20/19 08:56 MCV 74 fl (84-94) L 06/20/19 08:56 MCH 22 pg (28-32) L 06/20/19 08:56 MCHC 30 % (32-34) L 06/20/19 08:56 RDW 21.3 % (13.2-15.2) H 06/20/19 08:56 Plt Count 252 K/mm3 (140-440) 06/20/19 08:56 Add Manual Diff Complete 06/15/19 03:59 Total Counted 100 06/15/19 03:59 Seg Neuts % (Manual) 50.0 % (40.0-70.0) 06/15/19 03:59 Band Neutrophils % 0 % 06/15/19 03:59 Lymphocytes % (Manual) 43.0 % (13.4-35.0) H 06/15/19 03:59 Reactive Lymphs % (Man) 1.0 % 06/15/19 03:59 Monocytes % (Manual) 3.0 % (0.0-7.3) 06/15/19 03:59 Eosinophils % (Manual) 3.0 % (0.0-4.3) 06/15/19 03:59 Basophils % (Manual) 0 % (0.0-1.8) 06/15/19 03:59 Metamyelocytes % 0 % 06/15/19 03:59 Myelocytes % 0 % 06/15/19 03:59 Promyelocytes % 0 % 06/15/19 03:59 Blast Cells % 0 % 06/15/19 03:59 Nucleated RBC % 2.0 % (0.0-0.9) H 06/15/19 03:59 Seg Neutrophils # Man 2.1 K/mm3 (1.8-7.7) 06/15/19 03:59 Band Neutrophils # 0.0 K/mm3 06/15/19 03:59 Lymphocytes # (Manual) 1.8 K/mm3 (1.2-5.4) 06/15/19 03:59 Abs React Lymphs (Man) 0.0 K/mm3 06/15/19 03:59 Monocytes # (Manual) 0.1 K/mm3 (0.0-0.8) 06/15/19 03:59 Eosinophils # (Manual) 0.1 K/mm3 (0.0-0.4) 06/15/19 03:59 Basophils # (Manual) 0.0 K/mm3 (0.0-0.1) 06/15/19 03:59 Metamyelocytes # 0.0 K/mm3 06/15/19 03:59 Myelocytes # 0.0 K/mm3 06/15/19 03:59 Promyelocytes # 0.0 K/mm3 06/15/19 03:59 Blast Cells # 0.0 K/mm3 06/15/19 03:59 WBC Morphology Not Reportable 06/15/19 03:59 Hypersegmented Neuts Not Reportable 06/15/19 03:59 Hyposegmented Neuts Not Reportable 06/15/19 03:59 Hypogranular Neuts Not Reportable 06/15/19 03:59 Smudge Cells Not Reportable 06/15/19 03:59 Toxic Granulation Not Reportable 06/15/19 03:59 Toxic Vacuolation Not Reportable 06/15/19 03:59 Dohle Bodies Not Reportable 06/15/19 03:59 Pelger-Huet Anomaly Not Reportable 06/15/19 03:59 Leslie Rods Not Reportable 06/15/19 03:59 Platelet Estimate Consistent w auto 06/15/19 03:59 Clumped Platelets Not Reportable 06/15/19 03:59 Plt Clumps, EDTA Not Reportable 06/15/19 03:59 Large Platelets Not Reportable 06/15/19 03:59 Giant Platelets Not Reportable 06/15/19 03:59 Platelet Satelliting Not Reportable 06/15/19 03:59 Plt Morphology Comment Not Reportable 06/15/19 03:59 RBC Morphology Not Reportable 06/15/19 03:59 Dimorphic RBCs Not Reportable 06/15/19 03:59 Polychromasia Not Reportable 06/15/19 03:59 Hypochromasia 1+ 06/15/19 03:59 Poikilocytosis Not Reportable 06/15/19 03:59 Anisocytosis 1+ 06/15/19 03:59 Microcytosis Not Reportable 06/15/19 03:59 Macrocytosis Not Reportable 06/15/19 03:59 Spherocytes Not Reportable 06/15/19 03:59 Pappenheimer Bodies Not Reportable 06/15/19 03:59 Sickle Cells Not Reportable 06/15/19 03:59 Target Cells Few 06/15/19 03:59 Tear Drop Cells Few 06/15/19 03:59 Ovalocytes Few 06/15/19 03:59 Helmet Cells Not Reportable 06/15/19 03:59 [place] Bodies Not Reportable 06/15/19 03:59 [place] Rings Not Reportable 06/15/19 03:59 Joseline Cells Not Reportable 06/15/19 03:59 Bite Cells Not Reportable 06/15/19 03:59 Crenated Cell Not Reportable 06/15/19 03:59 Elliptocytes Not Reportable 06/15/19 03:59 Acanthocytes (Spur) Not Reportable 06/15/19 03:59 Rouleaux Not Reportable 06/15/19 03:59 Hemoglobin C Crystals Not Reportable 06/15/19 03:59 Schistocytes Rare 06/15/19 03:59 Malaria parasites Not Reportable 06/15/19 03:59 Cliff Bodies Not Reportable 06/15/19 03:59 Hem Pathologist Commnt No 06/15/19 03:59 PT 25.2 Sec. (12.2-14.9) H 06/25/19 07:15 INR 2.24 (0.87-1.13) H 06/25/19 07:15 APTT 37.7 Sec. (24.2-36.6) H 06/14/19 05:13 Sodium 135 mmol/L (137-145) L 06/22/19 04:54 Potassium 4.7 mmol/L (3.6-5.0) 06/22/19 04:54 Chloride 91.4 mmol/L (98-107) L 06/22/19 04:54 Carbon Dioxide 29 mmol/L (22-30) 06/22/19 04:54 Anion Gap 19 mmol/L 06/22/19 04:54 BUN 45 mg/dL (9-20) H 06/22/19 04:54 Creatinine 1.5 mg/dL (0.8-1.5) 06/22/19 04:54 Estimated GFR > 60 ml/min 06/22/19 04:54 BUN/Creatinine Ratio 30 % 06/22/19 04:54 Glucose 107 mg/dL (75-100) H 06/22/19 04:54 POC Glucose 97 (70-105) 06/25/19 08:02 Calcium 9.3 mg/dL (8.4-10.2) 06/22/19 04:54 Magnesium 2.20 mg/dL (1.7-2.3) 06/17/19 04:12 Troponin T < 0.010 ng/mL (0.00-0.029) 06/14/19 07:48 NT-Pro-B Natriuret Pep 1663 pg/mL (0-450) H 06/14/19 05:13 Triglycerides 55 mg/dL (2-149) 06/14/19 07:48 Cholesterol 80 mg/dL (50-199) 06/14/19 07:48 LDL Cholesterol Direct 32 mg/dL (50-130) L 06/14/19 07:48 HDL Cholesterol 43 mg/dL (40-59) 06/14/19 07:48 Cholesterol/HDL Ratio 1.86 % 06/14/19 07:48 Active Medications - Current Medications Current Medications: Generic Name Dose Route Start Last Admin Trade Name Freq PRN Reason Stop Dose Admin Acetaminophen 650 mg 06/14/19 08:10 Tylenol PO Q4H PRN Pain MILD(1-3)/Fever >100.5/ROBERSON Albuterol 2.5 mg 06/14/19 08:10 Proventil IH Q3HRT PRN Shortness Of Breath Albuterol/Ipratropium 1 ampul 06/19/19 08:00 06/25/19 09:11 Duoneb *Not For Prn Use* IH 1 ampul TIDRT CODY Administration Aspirin 81 mg 06/14/19 10:00 06/25/19 09:45 Halfprin Ec PO 81 mg DAILY CODY Administration Atorvastatin Calcium 40 mg 06/14/19 22:00 06/24/19 22:21 Lipitor PO Not Given QHS CODY Bumetanide 3 mg 06/23/19 10:00 06/25/19 09:42 Bumex PO 3 mg QDAY CODY Administration Carvedilol 3.125 mg 06/14/19 10:00 06/25/19 09:45 Coreg PO 3.125 mg BID [facility] Administration Dextrose 50 ml 06/15/19 17:01 D50w (25gm) Syringe IV Q30MIN PRN Hypoglycemia Protocol Ergocalciferol 50,000 unit 06/21/19 10:00 06/21/19 09:54 Vitamin D2 PO 50,000 unit Mo CODY Administration Insulin Human Regular 0 units 06/15/19 22:00 06/25/19 07:30 Humulin R SUB-Q Not Given ACHS [facility] Protocol Naloxone HCl 0.1 mg 06/14/19 08:10 Naloxone IV Q2MIN PRN Res Rate </= 8 or 02 SAT < 92% Nitroglycerin 0.4 mg 06/14/19 05:00 06/25/19 04:45 Nitrostat SL 0.4 mg .Q5MIN PRN Administration Chest Pain Ondansetron HCl 4 mg 06/14/19 08:10 Zofran IV Q8H PRN Nausea And Vomiting Oxycodone HCl 10 mg 06/14/19 15:00 06/25/19 09:44 Roxicodone PO 10 mg Q6HR PRN Administration Pain, Severe (7-10) Oxycodone/Acetaminophen 1 tab 06/14/19 08:10 06/25/19 06:16 Percocet 5/325 PO 1 tab Q6H PRN Administration Pain, Moderate (4-6) Sodium Chloride 10 ml 06/14/19 10:00 06/24/19 22:21 Sodium Chloride Flush Syringe 10 Ml IV Not Given BID [facility] Spironolactone 25 mg 06/14/19 10:00 06/25/19 09:44 Aldactone PO 25 mg QDAY [facility] Administration Warfarin Sodium 10 mg 06/20/19 17:00 06/24/19 17:29 Coumadin PO 10 mg DAILY@1700 [facility] Administration Nutrition/Malnutrition Assess - Dietary Evaluation Nutrition/Malnutrition Findings: Nutrition Notes Start: 06/15/19 11:58 Freq: Status: Active Protocol: Document 06/21/19 13:23 LP (Rec: 06/21/19 13:23 LP [id number]) Nutrition Notes Need for Assessment generated from: LOS Initial or Follow up Brief Note Subjective/Other Information Screen for LOS. Pt consuming 100% of meals. Nutrition Intervention Revisit per MD consult or patient Sign Off request:
== END 2019-06-25 15:16 | disposition home or self-care (01) | DRG 291 ==
LOC: ED 04:36 → 4A 07:15
PROVIDERS: ADMIT Internal Medicine; ATTEND Hospitalist
DX: I13.0 Hypertensive heart and chronic kidney disease with heart failure and stage 1 through stage 4 chronic kidney disease, or unspecified chronic kidney disease (principal); N17.0 Acute kidney failure with tubular necrosis; I50.43 Acute on chronic combined systolic (congestive) and diastolic (congestive) heart failure; E66.2 Morbid (severe) obesity with alveolar hypoventilation; Z68.45 Body mass index [BMI] 70 or greater, adult; J96.11 Chronic respiratory failure with hypoxia; I47.2 Ventricular tachycardia; D68.8 Other specified coagulation defects; E87.1 Hypo-osmolality and hyponatremia; E11.22 Type 2 diabetes mellitus with diabetic chronic kidney disease; N18.9 Chronic kidney disease, unspecified; I42.0 Dilated cardiomyopathy; D63.8 Anemia in other chronic diseases classified elsewhere; I89.0 Lymphedema, not elsewhere classified; Z95.810 Presence of automatic (implantable) cardiac defibrillator; Z79.82 Long term (current) use of aspirin; Z79.4 Long term (current) use of insulin; Z79.899 Other long term (current) drug therapy; Z79.01 Long term (current) use of anticoagulants; Z86.718 Personal history of other venous thrombosis and embolism; Z88.8 Allergy status to other drugs, medicaments and biological substances; I25.2 Old myocardial infarction
CPT/HCPCS: 36415; 71045; 80048; 80061; 82962; 83735; 83880; 84484; 85007; 85025; 85027; 85610; 85730; 93005; 93010; 94640; 94760; 96360; G0378; A9270-GY; J1885; J1940

== ENCOUNTER 2019-09-04 19:06 | Inpatient (IN) | payer OTHER ==
[2019-09-04] MEDS ORDERED: ACETAMINOPHEN 500 MG TAB PO ONE (19:42)
--- NOTE | 2019-09-04 19:45 | Emergency Department Report ---
ED General Adult HPI - General Chief complaint: Extremity Injury, Lower Stated complaint: RT FT SWOLLEN Time Seen by Provider: 09/04/19 19:29 Source: patient, EMS (Verbal report received from EMS. EMS documentation not available at time of chart dictation ), RN notes reviewed, old records reviewed Mode of arrival: Stretcher Limitations: Physical Limitation - History of Present Illness Initial comments: Cardiology: Dr. Vazquez, [facility] The patient is a 34-year-old gentleman. I have evaluated him in the past. He is on permanent anticoagulation with Coumadin, has a history of morbid obesity, chronic systolic heart failure, dilated nonischemic cardiomyopathy, ICD in situ, PVC, hypertension, diabetes, history of right lower extremity DVT study, history of renal insufficiency/cardiorenal syndrome, vasomotor nephropathy, morbid obesity. He is brought to the hospital by EMS. He also has chronic respiratory failure, and is currently on 4 L of home oxygen. He reports that he has right-sided dorsal foot pain after accidentally dropping his oxygen tank onto his right foot. After dropping the tank onto his right foot, he feels like the foot has swollen up. His pain is sharp and throbbing, increases with palpation and range of motion, and it decreases with rest. He reports that he recently had his oxygen requirements increased to 4 L, last month, his airplane electrical repairer started him on a new water pill, he thinks it is Bumex. He also thinks that his legs are more swollen than usual, and he has more shortness of breath than usual. There is no complaint of headache, neck pain, chest pain, abdominal pain. There is no complaint of nausea, vomiting, diarrhea, irritative or obstructive urinary symptoms. -: Sudden, days(s) Location: left, right, lower extremity Severity scale (0 -10): 10 Quality: aching Consistency: other Improves with: rest Worsens with: movement - Related Data Home Medications Medication Instructions Recorded Confirmed Last Taken Cholecalciferol (Vitamin D3) 50,000 unit PO QWEEK 04/08/19 06/16/19 04/04/19 [Vitamin D3 50,000UNIT CAP] Previous Rx's Medication Instructions Recorded Last Taken Type Lispro Insulin [HumaLOG] 0 unit SUB-Q ACHS units 04/11/19 Unknown Rx Spironolactone [Aldactone] 25 mg PO QDAY #90 tablet 12/09/19 Unknown Rx Warfarin [Coumadin] 10 mg PO DAILY@1700 #30 tablet 06/21/19 Unknown Rx carvediloL [Coreg] 3.125 mg PO BID #60 tablet 06/21/19 Unknown Rx metFORMIN XR [Glucophage XR] 500 mg PO QDAY #90 tab 06/21/19 Unknown Rx oxyCODONE /ACETAMINOPHEN [Percocet 1 tab PO Q6H PRN #14 tablet 06/21/19 Unknown Rx 5/325 mg] Aspirin EC [Halfprin EC] 81 mg PO DAILY #30 tablet 06/24/19 Unknown Rx AtorvaSTATin [Lipitor] 40 mg PO QHS #60 tablet 06/24/19 Unknown Rx Bumetanide [Bumex 1 mg tab] 1 mg PO BID #60 tab 06/24/19 Unknown Rx Sacubitril/Valsartan [Entresto 1 each PO BID #60 tablet 06/24/19 Unknown Rx 49-51 mg] metOLazone [Zaroxolyn] 2.5 mg PO QDAY #30 tablet 06/24/19 Unknown Rx Allergies Allergy/AdvReac Type Severity Reaction Status Date / Time hydrochlorothiazide Allergy Unknown Verified 06/22/19 07:28 prochlorperazine Allergy Hives Verified 04/14/18 12:13 [From Compazine] ED Review of Systems ROS: Stated complaint: RT FT SWOLLEN Other details as noted in HPI Constitutional: malaise. denies: fever Eyes: denies: eye discharge ENT: denies: congestion Respiratory: shortness of breath Cardiovascular: edema Gastrointestinal: denies: abdominal pain Genitourinary: denies: dysuria Musculoskeletal: joint swelling, arthralgia, myalgia Neurological: weakness (global) Hematological/Lymphatic: denies: easy bleeding ED Past Medical Hx - Past Medical History Hx Hypertension: Yes Hx Heart Attack/AMI: Yes Hx Congestive Heart Failure: Yes Hx Diabetes: Yes Hx Deep Vein Thrombosis: Yes Hx Pulmonary Embolism: No Hx Sickle Cell Disease: No Hx Asthma: No Hx COPD: No Hx Tuberculosis: No Hx HIV: No Additional medical history: R sided chest tube, -infection in lung. defibrillator 10/2017. EJ 15%. lymphedema - Surgical History Hx Pacemaker: Yes Hx Internal Defibrillator: Yes ([employer]. [employer] ) Additional Surgical History: lymphedema - Social History Smoking Status: Never Smoker Substance Use Type: None - Medications Home Medications: Home Medications Medication Instructions Recorded Confirmed Last Taken Type Cholecalciferol (Vitamin D3) 50,000 unit PO QWEEK 04/08/19 06/16/19 04/04/19 History [Vitamin D3 50,000UNIT CAP] Lispro Insulin [HumaLOG] 0 unit SUB-Q ACHS units 04/11/19 06/16/19 Unknown Rx Spironolactone [Aldactone] 25 mg PO QDAY #90 tablet 06/21/19 Unknown Rx Warfarin [Coumadin] 10 mg PO DAILY@1700 #30 tablet 06/21/19 Unknown Rx carvediloL [Coreg] 3.125 mg PO BID #60 tablet 06/21/19 Unknown Rx metFORMIN XR [Glucophage XR] 500 mg PO QDAY #90 tab 06/21/19 Unknown Rx oxyCODONE /ACETAMINOPHEN [Percocet 1 tab PO Q6H PRN #14 tablet 06/21/19 Unknown Rx 5/325 mg] Aspirin EC [Halfprin EC] 81 mg PO DAILY #30 tablet 06/24/19 Unknown Rx AtorvaSTATin [Lipitor] 40 mg PO QHS #60 tablet 06/24/19 Unknown Rx Bumetanide [Bumex 1 mg tab] 1 mg PO BID #60 tab 06/24/19 Unknown Rx Sacubitril/Valsartan [Entresto 1 each PO BID #60 tablet 06/24/19 Unknown Rx 49-51 mg] metOLazone [Zaroxolyn] 2.5 mg PO QDAY #30 tablet 06/24/19 Unknown Rx ED Physical Exam - General Limitations: Physical Limitation General appearance: alert, anxious, obese - Head Head exam: Present: atraumatic, normocephalic - Eye Eye exam: Present: normal appearance, EOMI. Absent: nystagmus - ENT ENT exam: Present: normal exam, normal orophraynx, mucous membranes moist, normal external ear exam - Neck Neck exam: Present: normal inspection, full ROM. Absent: tenderness, meningismus - Respiratory Respiratory exam: Present: rales. Absent: respiratory distress, rhonchi, decreased breath sounds - Cardiovascular Cardiovascular Exam: Present: regular rate, normal rhythm, normal heart sounds. Absent: systolic murmur, diastolic murmur, rubs, gallop - GI/Abdominal GI/Abdominal exam: Present: soft. Absent: distended, tenderness, guarding, rebound, rigid, pulsatile mass - Rectal Rectal exam: Present: deferred - Extremities Exam Extremities exam: Present: normal inspection, pedal edema, other (2+ pulses noted in the bilateral upper extremities. There is right foot tenderness. There is obvious swelling noted in the bilateral lower extremities, and obvious swelling noted on the right foot. The compartments are soft.) - Back Exam Back exam: Present: normal inspection. Absent: tenderness, CVA tenderness (R), CVA tenderness (L), paraspinal tenderness, vertebral tenderness - Neurological Exam Neurological exam: Present: alert, other (There is no facial droop. The tongue is midline. Extraocular movements are intact bilaterally. There is 5 out of 5 strength in bilateral upper and lower extremities. Sensation is intact to light touch bilateral upper and lower extremities. ). Absent: motor sensory deficit - Psychiatric Psychiatric exam: Present: normal affect, normal mood - Skin Skin exam: Present: warm, dry, intact, normal color. Absent: rash ED Course Vital Signs 09/04/19 19:36 Temperature 98.2 F Pulse Rate 97 H Respiratory 18 Rate Blood Pressure 133/112 [Right] O2 Sat by Pulse 97 Oximetry - Reevaluation(s) Reevaluation #1: 09/04/19 20:32 Differential diagnosis, including but not limited to: Fracture, dislocation, contusion, hematoma, acute on chronic systolic heart failure, volume overload Assessment and plan: 34-year-old gentleman with 2 complaints Complaint #1, right sided foot pain and swelling, after accidentally dropping oxygen tank on the foot, we will treat with Tylenol, obtain plain films, and reassess. Patient not a candidate for NSAIDs given chronic Coumadin use. Given his complaints of shortness of breath, and clinical exam evidence of congestive heart failure, not a candidate for narcotic therapy at this time, we explained this to the patient. Complaints #2, bilateral lower extremity swelling, and increasing shortness of breath. Likely acute exacerbation of chronic congestive heart failure. Has bilateral lower extremity edema, rales, and x-ray the chest suggest pulmonary vascular congestion. EKG, screening laboratory studies ordered. Reevaluation #2: 09/04/19 21:34 Laboratory studies reviewed and appreciated. Patient has acute on chronic renal failure and evidence of fluid overload, suggestive of acute cardiorenal syndrome. Discussed findings with patient he is amenable to hospitalization. Discussed with hospital physician, Dr. JUJU Jones, he accepted the patient to the medical service. ED Medical Decision Making - Lab Data Result diagrams: 09/04/19 20:41 09/04/19 20:41 Vital Signs 09/04/19 19:36 Temperature 98.2 F Pulse Rate 97 H Respiratory 18 Rate Blood Pressure 133/112 [Right] O2 Sat by Pulse 97 Oximetry Vital Signs 09/04/19 19:36 Temperature 98.2 F Pulse Rate 97 H Respiratory 18 Rate Blood Pressure 133/112 [Right] O2 Sat by Pulse 97 Oximetry Lab Results 09/04/19 09/04/19 09/04/19 Range/Units 20:41 20:41 20:41 Hgb 10.8 L (11.8-15.2) gm/dl Hct 35.8 (35.5-45.6) % Plt Count 291 (140-440) K/mm3 PT 23.3 H (12.2-14.9) Sec. INR 2.03 H (0.87-1.13) APTT 36.1 (24.2-36.6) Sec. Sodium 132 L (137-145) mmol/L Potassium 3.5 L (3.6-5.0) mmol/L Chloride 83.9 L (98-107) mmol/L Carbon Dioxide 28 (22-30) mmol/L Anion Gap 24 mmol/L BUN 98 H (9-20) mg/dL Creatinine 2.9 H (0.8-1.5) mg/dL Estimated GFR 30 ml/min BUN/Creatinine Ratio 34 % Glucose 134 H (75-100) mg/dL Calcium 9.8 (8.4-10.2) mg/dL Magnesium 2.50 H (1.7-2.3) mg/dL Total Bilirubin 1.80 H (0.1-1.2) mg/dL AST 36 (5-40) units/L ALT 34 (7-56) units/L Alkaline Phosphatase 173 H (35-129) units/L Total Creatine Kinase 135 (55-170) units/L NT-Pro-B Natriuret Pep 2649 H (0-450) pg/mL Total Protein 8.3 H (6.3-8.2) g/dL Albumin 3.7 L (3.9-5) g/dL Albumin/Globulin Ratio 0.8 % - EKG Data -: EKG Interpreted by Me - EKG Data 09/04/19 20:34 The EKG today shows a sinus rhythm, WV interval 176 ms, QTC 660 ms, there is a borderline rightward axis deviation, there are PVCs, there is motion artifact, the EKG is abnormal, is not consistent with ST elevation myocardial infarction, right axis deviation appears to be new when compared to prior EKG from 06/14/2019. It is not consistent with a STEMI - Radiology Data Radiology results: image reviewed interpreted by me: X-ray of the chest shows enlarged cardiac silhouette, pulmonary vascular congestion X-ray of the right foot shows soft tissue swelling, question first cuneiform avulsion fracture. X-ray of the right tibia/fibula show soft tissue swelling, otherwise no acute disease. X-ray of the ankle appears to be negative for acute disease. Soft tissue swelling is noted Critical Care Time: Yes Critical care time in (mins) excluding proc time.: 35 Critical care attestation.: If time is entered above; I have spent that time in minutes in the direct care of this critically ill patient, excluding procedure time. ED Disposition Clinical Impression: Anticoagulant long-term use, Cardiorenal syndrome with renal failure, Right leg pain Disposition: OP ADMIT IP TO THIS HOSP Is pt being admited?: Yes Condition: Good
[2019-09-04 21:01] LABS: Hematocrit 35.8 % (35.5-45.6); Hemoglobin 10.8 gm/dl (11.8-15.2)
[2019-09-04 21:10] LABS: INR 2.03 (0.87-1.13)
[2019-09-04 21:11] LABS: Partial Thromboplastin Time 36.1 Sec. (24.2-36.6)
[2019-09-04 21:23] LABS: Albumin 3.7 g/dL (3.9-5); Calcium 9.8 mg/dL (8.4-10.2)
[2019-09-04] MEDS ORDERED: FUROSEMIDE 40 MG/4 ML INJ IV ONE (21:34)
--- NOTE | 2019-09-04 21:43 | XRay Report ---
CHEST 1 VIEW INDICATION: sob. COMPARISON: 06/14/2019 FINDINGS: SUPPORT DEVICES: Pacing device in the left hemithorax electrode tip right ventricle HEART / MEDIASTINUM: Marked cardiac enlargement LUNGS / PLEURA: No significant pulmonary or pleural abnormality. No pneumothorax. ADDITIONAL FINDINGS: IMPRESSION: 1. No acute cardiopulmonary disease Signer Name: Wayne Scales MD Signed: 09/04/2019 9:38 PM Workstation Name: [id number]
--- NOTE | 2019-09-04 21:46 | XRay Report ---
HISTORY:traumatic rle pain COMPARISON: None. TECHNIQUE: AP lateral and obliques views were obtained FINDINGS: Bones: No fracture or dislocation. Joint spaces: Maintained. Soft tissues: Marked soft tissue edema is present.. Additional findings: None. IMPRESSION: 1. Marked soft tissue edema Signer Name: Wayne Scales MD Signed: 09/04/2019 9:41 PM Workstation Name: [id number]
--- NOTE | 2019-09-04 22:20 | XRay Report ---
HISTORY:traumatic rle pain COMPARISON: None. TECHNIQUE: AP lateral and obliques views were obtained FINDINGS: Bones: No fracture or dislocation. Joint spaces: Maintained. Soft tissues: No significant abnormality. Additional findings: Soft tissue edema IMPRESSION: 1. No significant abnormality. Signer Name: Wayne Scales MD Signed: 09/04/2019 10:16 PM Workstation Name: [id number]
--- NOTE | 2019-09-04 22:24 | XRay Report ---
HISTORY:traumatic rle pain COMPARISON: None. TECHNIQUE: AP lateral and obliques views were obtained FINDINGS: Bones: No fracture or dislocation. Joint spaces: Maintained. Soft tissues: No significant abnormality. Additional findings: Soft tissue edema IMPRESSION: 1. Soft tissue edema Signer Name: Wayne Scales MD Signed: 09/04/2019 10:19 PM Workstation Name: [id number]
[2019-09-04] MEDS ORDERED: ONDANSETRON 4 MG/2 ML INJ IV PRN (22:38)
[2019-09-04] MEDS ORDERED: MORPHINE 2 MG/1 ML INJ IV PRN (22:38)
[2019-09-04] MEDS ORDERED: MAGNESIUM HYDROXIDE (MOM) ORAL LIQD UDC PO PRN (22:38)
[2019-09-04] MEDS ORDERED: ACETAMINOPHEN 325 MG TAB PO PRN (22:38)
[2019-09-04] MEDS ORDERED: DEXTROSE 50% IN WATER (25GM) 50 ML SYRINGE IV PRN (22:49)
--- NOTE | 2019-09-04 23:37 | History and Physical Report ---
History of Present Illness Date of examination: 09/04/19 Date of admission: 09/04/19 21:37 Chief complaint: Right foot paikn History of present illness: Patient is a 34-year-old male with known history of CHF, dilated nonischemic cardiomyopathy with EF of about 10 to 15%, hypertension, diabetes mellitus, history of chronic kidney disease with cardiorenal syndrome, morbid obesity presenting to the emergency room today complaining of pain in his right lower extremity. Patient has known history of chronic respiratory failure uses oxygen at home. He had accidentally dropped his oxygen tank on his foot today and came in with right foot pain and swelling. Pain on the right foot is said to be throbbing and increases with activity. He denies any chest pain but has had increasing shortness of breath lately. His oxygen requirement has been increased about 4 L last month and also his nurse case manager had started him on Bumex because of progressive swelling of his lower extremities. He denies any fever or chills, no nausea vomiting. Work-up in the emergency room reveals a worsening renal function. Past History Past Medical History: other (Cardiomyopathy) Social history: no significant social history Family history: no significant family history Medications and Allergies Allergies Allergy/AdvReac Type Severity Reaction Status Date / Time hydrochlorothiazide Allergy Unknown Verified 06/22/19 07:28 prochlorperazine Allergy Hives Verified 04/14/18 12:13 [From Compazine] Home Medications Medication Instructions Recorded Confirmed Last Taken Type Cholecalciferol (Vitamin D3) 50,000 unit PO QWEEK 04/08/19 09/04/19 04/04/19 History [Vitamin D3 50,000UNIT CAP] Lispro Insulin [HumaLOG] 0 unit SUB-Q ACHS units 04/11/19 09/04/19 Unknown Rx Spironolactone [Aldactone] 25 mg PO QDAY #90 tablet 06/21/19 09/04/19 Unknown Rx Warfarin [Coumadin] 10 mg PO DAILY@1700 #30 tablet 06/21/19 09/04/19 Unknown Rx carvediloL [Coreg] 3.125 mg PO BID #60 tablet 06/21/19 09/04/19 Unknown Rx metFORMIN XR [Glucophage XR] 500 mg PO QDAY #90 tab 06/21/19 09/04/19 Unknown Rx oxyCODONE /ACETAMINOPHEN [Percocet 1 tab PO Q6H PRN #14 tablet 06/21/19 09/04/19 Unknown Rx 5/325 mg] Aspirin EC [Halfprin EC] 81 mg PO DAILY #30 tablet 06/24/19 09/04/19 Unknown Rx AtorvaSTATin [Lipitor] 40 mg PO QHS #60 tablet 06/24/19 09/04/19 Unknown Rx Bumetanide [Bumex 1 mg tab] 1 mg PO BID #60 tab 06/24/19 09/04/19 Unknown Rx Sacubitril/Valsartan [Entresto 1 each PO BID #60 tablet 06/24/19 09/04/19 Unknown Rx 49-51 mg] metOLazone [Zaroxolyn] 2.5 mg PO QDAY #30 tablet 06/24/19 09/04/19 Unknown Rx Active Meds: Active Medications Acetaminophen (Tylenol) 650 mg PO Q4H PRN PRN Reason: Pain MILD(1-3)/Fever >100.5/ROBERSON Dextrose (D50w (25gm) Syringe) 0 ml IV Q30MIN PRN; Protocol PRN Reason: Hypoglycemia Furosemide (Lasix) 40 mg IV BID@0600,1800 [facility] Insulin Human Lispro (Humalog) 0 unit SUB-Q ACHS [facility]; Protocol Magnesium Hydroxide (Milk Of Magnesia) 30 ml PO Q4H PRN PRN Reason: Constipation Morphine Sulfate (Morphine) 2 mg IV Q5MIN PRN PRN Reason: Chest Pain unrelieved by NTG Morphine Sulfate (Morphine) 2 mg IV Q4H PRN PRN Reason: Pain, Moderate (4-6) Last Admin: 09/04/19 22:57 Dose: 2 mg Documented by: Ondansetron HCl (Zofran) 4 mg IV Q8H PRN PRN Reason: Nausea And Vomiting Sodium Chloride (Sodium Chloride Flush Syringe 10 Ml) 10 ml IV BID [facility] Sodium Chloride (Sodium Chloride Flush Syringe 10 Ml) 10 ml IV PRN PRN PRN Reason: LINE FLUSH Review of Systems Constitutional: no fever, no chills Cardiovascular: edema, no chest pain, no palpitations Respiratory: shortness of breath Gastrointestinal: no nausea, no vomiting Genitourinary Male: no dysuria, no hematuria Musculoskeletal: no neck pain, no low back pain Integumentary: no rash, no pruritis Neurological: no headaches, no change in mentation Exam - Constitutional Vitals: Temp Pulse Resp BP Pulse Ox 98.2 F 108 H 15 147/105 100 09/04/19 19:36 09/04/19 23:01 09/04/19 23:01 09/04/19 23:01 09/04/19 23:01 General appearance: Present: no acute distress, well-nourished, obese - EENT Eyes: Present: PERRL, EOM intact ENT: hearing intact, clear oral mucosa, dentition normal - Neck Neck: Present: supple, normal ROM - Respiratory Respiratory effort: normal Respiratory: bilateral: CTA - Cardiovascular Rhythm: regular Heart Sounds: Present: S1 & S2 - Extremities Extremities: no ischemia, pulses intact, pulses symmetrical, Full ROM Extremity abnormal: edema (2+ bilateral lower extremity edema, lymphedema also present) Peripheral Pulses: within normal limits - Abdominal General gastrointestinal: Present: soft, non-tender, non-distended - Integumentary Integumentary: Present: clear, warm, dry - Psychiatric Psychiatric: appropriate mood/affect, intact judgment & insight, cooperative - Neurologic Neurologic: CNII-XII intact, moves all extremities Results - Labs CBC & Chem 7: 09/04/19 20:41 09/04/19 20:41 Labs: Abnormal lab results 09/04/19 09/04/19 09/04/19 Range/Units 20:41 20:41 20:41 Hgb 10.8 L (11.8-15.2) gm/dl PT 23.3 H (12.2-14.9) Sec. INR 2.03 H (0.87-1.13) Sodium 132 L (137-145) mmol/L Potassium 3.5 L (3.6-5.0) mmol/L Chloride 83.9 L (98-107) mmol/L BUN 98 H (9-20) mg/dL Creatinine 2.9 H (0.8-1.5) mg/dL Glucose 134 H (75-100) mg/dL Magnesium 2.50 H (1.7-2.3) mg/dL Total Bilirubin 1.80 H (0.1-1.2) mg/dL Alkaline Phosphatase 173 H (35-129) units/L NT-Pro-B Natriuret Pep 2649 H (0-450) pg/mL Total Protein 8.3 H (6.3-8.2) g/dL Albumin 3.7 L (3.9-5) g/dL Assessment and Plan - Patient Problems (1) HFrEF (heart failure with reduced ejection fraction) Current Visit: No Status: Chronic Qualifiers: Heart failure chronicity: acute on chronic Qualified Code(s): I50.23 - Acute on chronic systolic (congestive) heart failure Plan to address problem: Patient placed on diuretics. Will monitor daily weights and also monitor input and output. Patient will be scheduled for echocardiogram. (2) Type 2 diabetes mellitus with diabetic chronic kidney disease Current Visit: No Status: Acute Plan to address problem: We monitor blood glucose and resume routine home medications once reconciled. (3) Acute on chronic renal insufficiency Current Visit: No Status: Acute Plan to address problem: Patient may have been dehydrated from recent intake of her Bumex. Will monitor BUN and creatinine. We will place a consult to nephrology for further evaluation and recommendation. (4) Morbid obesity Current Visit: No Status: Chronic Plan to address problem: We will consult dietitian for evaluation during this admission. Patient encouraged lifestyle changes. (5) Right foot pain Current Visit: Yes Status: Acute Plan to address problem: Secondary to accidentally dropping oxygen tank on foot. Will give analgesic medication as needed. Official x-ray reading of the right foot not yet available during this dictation. We will consult him to orthopedic surgery for evaluation as needed. (6) DVT prophylaxis Current Visit: No Status: Acute Plan to address problem: Patient currently on anticoagulation. (7) Full code status Current Visit: Yes Status: Acute
[2019-09-05] MEDS: oxyCODONE /ACETAMINOPHEN 5-325MG TAB PO PRN ×5 (00:44→22:15)
[2019-09-05] MEDS: FUROSEMIDE 40 MG/4 ML INJ IV SCH ×2 (05:29→18:44)
[2019-09-05 09:04] LABS: Basophils # (Auto) 0.1 K/mm3 (0.0-0.1); Basophils % (Auto) 1.2 % (0.0-1.8); Eosinophils % (Auto) 0.1 % (0.0-4.3); Lymphocytes # (Auto) 0.7 K/mm3 (1.2-5.4); Lymphocytes % (Auto) 12.6 % (13.4-35.0); Mean Corpuscular HGB Conc 31 % (32-34); Mean Corpuscular Volume 70 fl (84-94); Monocytes # (Auto) 0.6 K/mm3 (0.0-0.8); Monocytes % (Auto) 12.1 % (0.0-7.3); Platelet Count 278 K/mm3 (140-440); Red Blood Count 5.02 M/mm3 (3.65-5.03)
[2019-09-05] MEDS: INSULIN LISPRO 100 UNIT/ML SUB-Q SCH ×5 (09:04→22:28)
[2019-09-05 09:13] LABS: Calcium 9.8 mg/dL (8.4-10.2)
[2019-09-05 09:48] LABS: Hematocrit 35.3 % (35.5-45.6); Hemoglobin 10.8 gm/dl (11.8-15.2); INR 1.78 (0.87-1.13)
[2019-09-05 09:49] LABS: Partial Thromboplastin Time 36.1 Sec. (24.2-36.6); Red Cell Distribution Width 22.4 % (13.2-15.2)
[2019-09-05] MEDS: ASPIRIN EC 81 MG TAB PO SCH (14:32)
[2019-09-05] MEDS: carvediloL 3.125 MG TAB PO SCH ×2 (14:32→22:15)
[2019-09-05] MEDS: SPIRONOLACTONE 25 MG TAB PO SCH ×2 (14:32→14:35)
[2019-09-05] MEDS: SACUBITRIL/VALSARTAN 49-51 MG TAB PO SCH ×2 (14:33→23:52)
[2019-09-05] MEDS: metOLazone 2.5 MG TAB PO SCH ×2 (14:33→14:35)
[2019-09-05] MEDS: POTASSIUM CHLORIDE ER 20 MEQ TAB PO SCH ×2 (14:33→22:15)
--- NOTE | 2019-09-05 14:54 | Progress Note ---
Assessment and Plan Assessment and plan: 34-year-old man who presents to the hospital after his oxygen tank accidentally dropped on his right foot. The patient has a history of chronic systolic CHF and is also complaining of worsening swelling his lower extremities and trouble breathing. Trauma to right lower extremity X-ray negative for fracture, pain control, physical therapy. Patient has walker at home Acute on chronic systolic heart failure, Continue diuretics Chronic hypoxic respiratory failure Continue oxygen supplement Acute kidney injury due to vasomotor nephropathy/cardiorenal syndrome Is improving with diuresis, A flutter status post ablation May 2019 Hypercoagulable state; on warfarin. DVT prophylaxis; patient is fully anticoagulated with warfarin History Interval history: Continues to complain of right foot pain, it is improved with pain medications Review of systems Constitutional: No fevers, no malaise, no joint pains CVS: No chest pain, complaining of orthopnea and bipedal edema GI: No abdominal pain, no diarrhea, no vomiting, no constipation Respiratory: no wheezing, no coughing Hospitalist Physical - Physical exam Narrative exam: General.: Appears well, no distress, nontoxic, morbidly obese HEENT: Moist mucous membranes, extraocular muscles intact, no lymphadenopathy Neck: supple Cardiac: S1-S2 heard Lungs: clear to auscultation bilaterally Abdomen: soft , nontender, nondistended, bowel sounds positive Extremities: Bilateral lower extremity edema and lymphedema Skin: no rash or lesions Neurologic: no gross focal deficits Psych: calm, and cooperative - Constitutional Vitals: Temp Pulse Resp BP Pulse Ox 99.0 F 69 18 134/82 97 09/05/19 13:45 09/05/19 13:45 09/05/19 13:45 09/05/19 13:45 09/05/19 13:45 General appearance: Present: no acute distress, well-nourished, obese SABRINA score - Sabrina Score Age > 65: (0) No Aspirin use within the Past 7 Days: (1) Yes 3 or more CAD Risk Factors: (1) Yes 2 or more Angina events in past 24 hrs: (0) No Known CAD with more than 50% Stenosis: (0) No Elevated Cardiac Markers: (0) No ST Deviation Greater than 0.5mm: (0) No SABRINA Score: 2 Results - Labs CBC & Chem 7: 09/05/19 08:14 09/06/19 10:59 Labs: Laboratory Last Values WBC 5.4 K/mm3 (4.5-11.0) 09/05/19 08:14 RBC 5.02 M/mm3 (3.65-5.03) 09/05/19 08:14 Hgb 10.8 gm/dl (11.8-15.2) L 09/05/19 08:14 Hct 35.3 % (35.5-45.6) L 09/05/19 08:14 MCV 70 fl (84-94) L 09/05/19 08:14 MCH 22 pg (28-32) L 09/05/19 08:14 MCHC 31 % (32-34) L 09/05/19 08:14 RDW 22.4 % (13.2-15.2) H 09/05/19 08:14 Plt Count 278 K/mm3 (140-440) 09/05/19 08:14 Lymph % (Auto) 12.6 % (13.4-35.0) L 09/05/19 08:14 Barton % (Auto) 12.1 % (0.0-7.3) H 09/05/19 08:14 Eos % (Auto) 0.1 % (0.0-4.3) 09/05/19 08:14 Baso % (Auto) 1.2 % (0.0-1.8) 09/05/19 08:14 Lymph # 0.7 K/mm3 (1.2-5.4) L 09/05/19 08:14 Barton # 0.6 K/mm3 (0.0-0.8) 09/05/19 08:14 Eos # 0.0 K/mm3 (0.0-0.4) 09/05/19 08:14 Baso # 0.1 K/mm3 (0.0-0.1) 09/05/19 08:14 Seg Neutrophils % 74.0 % (40.0-70.0) H 09/05/19 08:14 Seg Neutrophils # 4.0 K/mm3 (1.8-7.7) 09/05/19 08:14 PT 21.0 Sec. (12.2-14.9) H 09/05/19 08:14 INR 1.78 (0.87-1.13) H 09/05/19 08:14 APTT 36.1 Sec. (24.2-36.6) 09/05/19 08:14 Sodium 131 mmol/L (137-145) L 09/05/19 08:14 Potassium 3.0 mmol/L (3.6-5.0) L 09/05/19 08:14 Chloride 83.0 mmol/L (98-107) L 09/05/19 08:14 Carbon Dioxide 29 mmol/L (22-30) 09/05/19 08:14 Anion Gap 22 mmol/L 09/05/19 08:14 BUN 99 mg/dL (9-20) H 09/05/19 08:14 Creatinine 2.5 mg/dL (0.8-1.5) H 09/05/19 08:14 Estimated GFR 36 ml/min 09/05/19 08:14 BUN/Creatinine Ratio 40 % 09/05/19 08:14 Glucose 140 mg/dL (75-100) H 09/05/19 08:14 POC Glucose 111 (70-105) H 09/05/19 12:18 Hemoglobin A1c 7.7 % (4-6) H 09/04/19 23:18 Calcium 9.8 mg/dL (8.4-10.2) 09/05/19 08:14 Magnesium 2.50 mg/dL (1.7-2.3) H 09/04/19 20:41 Total Bilirubin 1.80 mg/dL (0.1-1.2) H 09/04/19 20:41 AST 36 units/L (5-40) 09/04/19 20:41 ALT 34 units/L (7-56) 09/04/19 20:41 Alkaline Phosphatase 173 units/L (35-129) H 09/04/19 20:41 Total Creatine Kinase 135 units/L (55-170) 09/04/19 20:41 NT-Pro-B Natriuret Pep 2649 pg/mL (0-450) H 09/04/19 20:41 Total Protein 8.3 g/dL (6.3-8.2) H 09/04/19 20:41 Albumin 3.7 g/dL (3.9-5) L 09/04/19 20:41 Albumin/Globulin Ratio 0.8 % 09/04/19 20:41 Active Medications - Current Medications Current Medications: Generic Name Dose Route Start Last Admin Trade Name Freq PRN Reason Stop Dose Admin Acetaminophen 650 mg 09/04/19 22:38 Tylenol PO Q4H PRN Pain MILD(1-3)/Fever >100.5/ROBERSON Aspirin 81 mg 09/05/19 10:00 09/05/19 14:32 Halfprin Ec PO 81 mg DAILY [facility] Administration Atorvastatin Calcium 40 mg 09/05/19 22:00 Lipitor PO QHS [facility] Carvedilol 3.125 mg 09/05/19 10:00 09/05/19 14:32 Coreg PO 3.125 mg BID [facility] Administration Dextrose 0 ml 09/04/19 22:49 D50w (25gm) Syringe IV Q30MIN PRN Hypoglycemia Protocol Ergocalciferol 50,000 unit 09/06/19 08:00 Vitamin D2 PO Mo [facility] Furosemide 40 mg 09/05/19 06:00 09/05/19 05:29 Lasix IV 40 mg BID@0600,1800 [facility] Administration Hydromorphone HCl 0.5 mg 09/05/19 14:49 Dilaudid IV Q3H PRN Pain , Severe (7-10) Insulin Human Lispro 0 unit 09/05/19 07:30 09/05/19 13:11 Humalog SUB-Q Not Given ACHS [facility] Protocol Magnesium Hydroxide 30 ml 09/04/19 22:38 Milk Of Magnesia PO Q4H PRN Constipation Metolazone 2.5 mg 09/05/19 10:00 09/05/19 14:35 Zaroxolyn PO Not Given QDAY [facility] Morphine Sulfate 2 mg 09/04/19 22:38 Morphine IV Q5MIN PRN Chest Pain unrelieved by NTG Ondansetron HCl 4 mg 09/04/19 22:38 Zofran IV Q8H PRN Nausea And Vomiting Oxycodone/Acetaminophen 2 tab 09/05/19 09:24 09/05/19 10:09 Percocet 5/325 PO 2 tab Q6H PRN Administration Pain, Moderate (4-6) Potassium Chloride 20 meq 09/05/19 14:00 09/05/19 14:33 K-Dur PO 20 meq BID [facility] Administration Sodium Chloride 10 ml 09/05/19 10:00 09/05/19 14:33 Sodium Chloride Flush Syringe 10 Ml IV 10 ml BID [facility] Administration Sodium Chloride 10 ml 09/04/19 22:38 Sodium Chloride Flush Syringe 10 Ml IV PRN PRN LINE FLUSH Spironolactone 25 mg 09/05/19 10:00 09/05/19 14:35 Aldactone PO Not Given QDAY [facility] Warfarin Sodium 10 mg 09/05/19 17:00 Coumadin PO DAILY@1700 [facility] Protocol
--- NOTE | 2019-09-05 15:18 | Consultation ---
History of Present Illness - Reason for Consult Consult date: 09/05/19 acute renal failure Requesting physician: SAMREEN AARON - History of Present Illness 34-year-old male who is known to me from previous admission in 2018. He has a history of chronic heart failure reduced ejection fraction, type 2 diabetes mellitus and hypertension. He also has chronic respiratory failure and is on 4 L oxygen at home. Patient says he accidentally dropped the oxygen tank on his right foot. Developed pain and swelling which was severe and throbbing. He also noted both lower extremities became swollen and he has had progressive worsening shortness of breath. Denies any chest pain though admits to palpitations. No dizziness or diaphoresis. No nausea vomiting. On account of the unrelenting pain and the worsening shortness of breath and swelling of the legs and feet he came to the hospital for further management. Of note patient was on Bumex, metolazone, Saccubitril, spironolactone and metformin at home. No recent exposure to radiocontrast. 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 denies: smoking, alcohol abuse, prescription drug abuse, IV drug use Family history: no significant family history, diabetes (Brother has diabetes), other (Mother of complications of congestive heart failure about age 45. He does not know about his father) Medications and Allergies Allergies Allergy/AdvReac Type Severity Reaction Status Date / Time hydrochlorothiazide Allergy Unknown Verified 06/22/19 07:28 prochlorperazine Allergy Hives Verified 04/14/18 12:13 [From Compazine] Home Medications Medication Instructions Recorded Confirmed Last Taken Type Cholecalciferol (Vitamin D3) 50,000 unit PO QWEEK 04/08/19 09/04/19 04/04/19 History [Vitamin D3 50,000UNIT CAP] Lispro Insulin [HumaLOG] 0 unit SUB-Q ACHS units 04/11/19 09/04/19 Unknown Rx Spironolactone [Aldactone] 25 mg PO QDAY #90 tablet 06/21/19 09/04/19 Unknown Rx Warfarin [Coumadin] 10 mg PO DAILY@1700 #30 tablet 06/21/19 09/04/19 Unknown Rx carvediloL [Coreg] 3.125 mg PO BID #60 tablet 06/21/19 09/04/19 Unknown Rx metFORMIN XR [Glucophage XR] 500 mg PO QDAY #90 tab 06/21/19 09/04/19 Unknown Rx Aspirin EC [Halfprin EC] 81 mg PO DAILY #30 tablet 06/24/19 09/04/19 Unknown Rx AtorvaSTATin [Lipitor] 40 mg PO QHS #60 tablet 06/24/19 09/04/19 Unknown Rx Bumetanide [Bumex 1 mg tab] 1 mg PO BID #60 tab 06/24/19 09/04/19 Unknown Rx Sacubitril/Valsartan [Entresto 1 each PO BID #60 tablet 06/24/19 09/04/19 Unknown Rx 49-51 mg] metOLazone [Zaroxolyn] 2.5 mg PO QDAY #30 tablet 06/24/19 09/04/19 Unknown Rx oxyCODONE /ACETAMINOPHEN [Percocet 2 tab PO Q5H PRN 09/05/19 09/05/19 Unknown History 5/325] Active Meds: Active Medications Acetaminophen (Tylenol) 650 mg PO Q4H PRN PRN Reason: Pain MILD(1-3)/Fever >100.5/ROBERSON Aspirin (Halfprin Ec) 81 mg PO DAILY [facility] Last Admin: 09/05/19 14:32 Dose: 81 mg Documented by: Atorvastatin Calcium (Lipitor) 40 mg PO QHS [facility] Carvedilol (Coreg) 3.125 mg PO BID [facility] Last Admin: 09/05/19 14:32 Dose: 3.125 mg Documented by: Dextrose (D50w (25gm) Syringe) 0 ml IV Q30MIN PRN; Protocol PRN Reason: Hypoglycemia Ergocalciferol (Vitamin D2) 50,000 unit PO Mo [facility] Furosemide (Lasix) 40 mg IV BID@0600,1800 [facility] Last Admin: 09/05/19 05:29 Dose: 40 mg Documented by: Hydromorphone HCl (Dilaudid) 0.5 mg IV Q3H PRN PRN Reason: Pain , Severe (7-10) Insulin Human Lispro (Humalog) 0 unit SUB-Q ACHS [facility]; Protocol Last Admin: 09/05/19 13:11 Dose: Not Given Documented by: Magnesium Hydroxide (Milk Of Magnesia) 30 ml PO Q4H PRN PRN Reason: Constipation Metolazone (Zaroxolyn) 2.5 mg PO QDAY [facility] Last Admin: 09/05/19 14:35 Dose: Not Given Documented by: Morphine Sulfate (Morphine) 2 mg IV Q5MIN PRN PRN Reason: Chest Pain unrelieved by NTG Ondansetron HCl (Zofran) 4 mg IV Q8H PRN PRN Reason: Nausea And Vomiting Oxycodone/Acetaminophen (Percocet 5/325) 2 tab PO Q6H PRN PRN Reason: Pain, Moderate (4-6) Last Admin: 09/05/19 10:09 Dose: 2 tab Documented by: Potassium Chloride (K-Dur) 20 meq PO BID [facility] Last Admin: 09/05/19 14:33 Dose: 20 meq Documented by: Sodium Chloride (Sodium Chloride Flush Syringe 10 Ml) 10 ml IV BID [facility] Last Admin: 09/05/19 14:33 Dose: 10 ml Documented by: Sodium Chloride (Sodium Chloride Flush Syringe 10 Ml) 10 ml IV PRN PRN PRN Reason: LINE FLUSH Spironolactone (Aldactone) 25 mg PO QDAY [facility] Last Admin: 09/05/19 14:35 Dose: Not Given Documented by: Warfarin Sodium (Coumadin) 10 mg PO DAILY@1700 [facility]; Protocol Review of Systems All systems: negative (Constitutional: no fever or chills. No anorexia or weight loss. HEENT: No sore throat or sinus drainage no hearing or vision impairment . Cardiovascular: See history of present illness. Respiratory: No cough, sputum, shortness of breath, hemoptysis or wheezing. Gastrointestinal: No nausea, vomiting, diarrhea, abdominal pain, hematemesis or melena. Genitourinary: No frequency urgency dysuria or hematuria. hematologic: No abnormal bleeding or bruising. Integumentary: no pruritus or rash. Neurological: No headache no focal weakness or numbness, no syncope or seizures. Musculoskeletal: Has pain in legs no stiffness. Psychiatry: no anxiety or depression) Exam - Vital Signs Vital signs: Vital Signs Pulse Ox 95 09/04/19 19:29 - Physical Exam Narrative exam: Morbidly obese middle-aged -[place] male lying in bed In no acute distress HEENT: NCAT, pink oral mucous membrane Neck: Supple, no venous distention CVS: S1S2 RRR with no murmur, rub or gallop Chest: Clear to auscultation Abdomen: Protuberant, soft, nontender, no organomegaly, bowel sounds are present Extremities: 1-2+ edema bilateral feet and lower legs, hyperpigmentation, tenderness left foot Neuro: Awake, alert no focal deficits Results - Lab Results 09/05/19 08:14 09/05/19 08:14 Most recent lab results Calcium 9.8 mg/dL (8.4-10.2) 09/05/19 08:14 Magnesium 2.50 mg/dL (1.7-2.3) H 09/04/19 20:41 Assessment and Plan - Patient Problems (1) Cardiorenal syndrome with renal failure Current Visit: Yes Status: Acute Plan to address problem: Gentle diuresis. Hold sacubitril/valsartan and spironolactone for now. Stop metformin since GFR is less than 30 mils per minute due to risk of lactic ac idosis. Follow-up electrolytes and renal function (2) Hyponatremia Current Visit: No Status: Resolved Plan to address problem: Hypervolemic hyponatremia. Follow-up sodium with diuretics (3) Hypokalemia Current Visit: Yes Status: Acute Plan to address problem: Supplement potassium and follow-up level. (4) Anemia Current Visit: Yes Status: Acute Plan to address problem: Follow-up hemoglobin. If decreases further, will need to do a more extensive evaluation (5) Acute on chronic systolic (congestive) heart failure Current Visit: No Status: Acute Plan to address problem: Continue diuresis. Encourage adherence to sodium and fluid restriction. Strict intake and output monitoring. Follow-up volume status (6) Hypertensive chronic kidney disease with stage 1 through stage 4 chronic kidney disease, or unspecified chronic kidney disease Current Visit: No Status: Acute Plan to address problem: Follow-up blood pressure on current medications (7) Type 2 diabetes mellitus with diabetic chronic kidney disease Current Visit: No Status: Acute Plan to address problem: Blood sugar management by primary attending
--- NOTE | 2019-09-05 15:59 | Consultation ---
History of Present Illness Consult date: 09/05/19 Consult reason: congestive heart failure (He is brought to the hospital by EMS. He also has chronic respiratory failure, and is currently on 4 L of home oxygen. He reports that he has right-sided dorsal foot pain after accidentally dropping his oxygen tank onto his right foot. After dropping the tank onto his right foot, he feels like the foot has swollen up. His pain is sharp and throbbing, increases with palpation and range of motion, and it decreases with rest.) History of present illness: He is brought to the hospital by EMS on 09/04/2019 because he accidently dropped O2 tank on left foot. He also has chronic respiratory failure, and is currently on 4 L of home oxygen. He reports that he has right-sided dorsal foot pain after accidentally dropping his oxygen tank onto his right foot. After dropping the tank onto his right foot, he feels like the foot has swollen up. His pain is sharp and throbbing, increases with palpation and range of motion, and it decreases with rest. Patient has acute on chronic renal failure and evidence of fluid overload, suggestive of acute cardiorenal syndrome.During evalaution ,he was noted to have elevated BUN/creat,?cardiorenal ,?dehydration,hence admitted for further observation. Past History Past Medical History: atrial fib (Pt reports he was recently hospitalized at [facility] records reviewed - Per discharge summary from 05/26/2019, pt was found to have new onset AFlutter at that time and underwent AFlutter ablation on 05/19/2019. He has been in NSR since admission here. ), other (The pt is a 34 YO male with a past medical history significant for chronic systolic heart failure, dilated NICMP, AICD in situ (Medtronic), frequent PVCs and NSVT, HTN, DM, RLE DVT, anticoagulated with coumadin, morbid obesity, lymphedema. He has been seen by our practice on prior hospitalizations and follows at [facility]. ) Social history: no significant social history Family history: no significant family history Medications and Allergies Allergies Allergy/AdvReac Type Severity Reaction Status Date / Time hydrochlorothiazide Allergy Unknown Verified 06/22/19 07:28 prochlorperazine Allergy Hives Verified 04/14/18 12:13 [From Compazine] Home Medications Medication Instructions Recorded Confirmed Last Taken Type Cholecalciferol (Vitamin D3) 50,000 unit PO QWEEK 04/08/19 09/04/19 04/04/19 History [Vitamin D3 50,000UNIT CAP] Lispro Insulin [HumaLOG] 0 unit SUB-Q ACHS units 04/11/19 09/04/19 Unknown Rx Spironolactone [Aldactone] 25 mg PO QDAY #90 tablet 06/21/19 09/04/19 Unknown Rx Warfarin [Coumadin] 10 mg PO DAILY@1700 #30 tablet 06/21/19 09/04/19 Unknown Rx carvediloL [Coreg] 3.125 mg PO BID #60 tablet 06/21/19 09/04/19 Unknown Rx metFORMIN XR [Glucophage XR] 500 mg PO QDAY #90 tab 06/21/19 09/04/19 Unknown Rx Aspirin EC [Halfprin EC] 81 mg PO DAILY #30 tablet 06/24/19 09/04/19 Unknown Rx AtorvaSTATin [Lipitor] 40 mg PO QHS #60 tablet 06/24/19 09/04/19 Unknown Rx Bumetanide [Bumex 1 mg tab] 1 mg PO BID #60 tab 06/24/19 09/04/19 Unknown Rx Sacubitril/Valsartan [Entresto 1 each PO BID #60 tablet 06/24/19 09/04/19 Unknown Rx 49-51 mg] metOLazone [Zaroxolyn] 2.5 mg PO QDAY #30 tablet 06/24/19 09/04/19 Unknown Rx oxyCODONE /ACETAMINOPHEN [Percocet 2 tab PO Q5H PRN 09/05/19 09/05/19 Unknown History 5/325] Active Meds: Active Medications Acetaminophen (Tylenol) 650 mg PO Q4H PRN PRN Reason: Pain MILD(1-3)/Fever >100.5/ROBERSON Aspirin (Halfprin Ec) 81 mg PO DAILY [facility] Last Admin: 09/05/19 14:32 Dose: 81 mg Documented by: Atorvastatin Calcium (Lipitor) 40 mg PO QHS [facility] Carvedilol (Coreg) 3.125 mg PO BID [facility] Last Admin: 09/05/19 14:32 Dose: 3.125 mg Documented by: Dextrose (D50w (25gm) Syringe) 0 ml IV Q30MIN PRN; Protocol PRN Reason: Hypoglycemia Ergocalciferol (Vitamin D2) 50,000 unit PO Mo [facility] Furosemide (Lasix) 40 mg IV BID@0600,1800 [facility] Last Admin: 09/05/19 05:29 Dose: 40 mg Documented by: Hydromorphone HCl (Dilaudid) 0.5 mg IV Q3H PRN PRN Reason: Pain , Severe (7-10) Insulin Human Lispro (Humalog) 0 unit SUB-Q ACHS [facility]; Protocol Last Admin: 09/05/19 13:11 Dose: Not Given Documented by: Magnesium Hydroxide (Milk Of Magnesia) 30 ml PO Q4H PRN PRN Reason: Constipation Metolazone (Zaroxolyn) 2.5 mg PO QDAY [facility] Last Admin: 09/05/19 14:35 Dose: Not Given Documented by: Morphine Sulfate (Morphine) 2 mg IV Q5MIN PRN PRN Reason: Chest Pain unrelieved by NTG Ondansetron HCl (Zofran) 4 mg IV Q8H PRN PRN Reason: Nausea And Vomiting Oxycodone/Acetaminophen (Percocet 5/325) 2 tab PO Q6H PRN PRN Reason: Pain, Moderate (4-6) Last Admin: 09/05/19 10:09 Dose: 2 tab Documented by: Potassium Chloride (K-Dur) 20 meq PO BID [facility] Last Admin: 09/05/19 14:33 Dose: 20 meq Documented by: Sodium Chloride (Sodium Chloride Flush Syringe 10 Ml) 10 ml IV BID [facility] Last Admin: 09/05/19 14:33 Dose: 10 ml Documented by: Sodium Chloride (Sodium Chloride Flush Syringe 10 Ml) 10 ml IV PRN PRN PRN Reason: LINE FLUSH Spironolactone (Aldactone) 25 mg PO QDAY [facility] Last Admin: 09/05/19 14:35 Dose: Not Given Documented by: Warfarin Sodium (Coumadin) 10 mg PO DAILY@1700 [facility]; Protocol Physical Examination Vital Signs Pulse Ox 95 09/04/19 19:29 General appearance: no acute distress, obese (Morbidly obsese.) HEENT: Positive: PERRL Neck: Positive: trachea midline Cardiac: Positive: Reg Rate and Rhythm. Negative: Audible Murmur Lungs: Positive: Decreased Breath Sounds Neuro: Positive: Grossly Intact Abdomen: Positive: Soft Male genitourinary: Positive: deferred Skin: Negative: Rash Extremities: Present: +2 Edema (Massive chronic bilateral lymphedma noted.) Results 09/05/19 08:14 09/05/19 08:14 Cardiac Enzymes 09/04/19 Range/Units 20:41 AST 36 (5-40) units/L Coagulation 09/04/19 09/05/19 Range/Units 20:41 08:14 PT 23.3 H 21.0 H (12.2-14.9) Sec. INR 2.03 H 1.78 H (0.87-1.13) APTT 36.1 36.1 (24.2-36.6) Sec. CBC 09/04/19 09/05/19 Range/Units 20:41 08:14 WBC 5.4 (4.5-11.0) K/mm3 RBC 5.02 (3.65-5.03) M/mm3 Hgb 10.8 L 10.8 L (11.8-15.2) gm/dl Hct 35.8 35.3 L (35.5-45.6) % Plt Count 291 278 (140-440) K/mm3 Lymph # 0.7 L (1.2-5.4) K/mm3 [place] # 0.6 (0.0-0.8) K/mm3 Eos # 0.0 (0.0-0.4) K/mm3 Baso # 0.1 (0.0-0.1) K/mm3 Comprehensive Metabolic Panel 09/04/19 09/05/19 Range/Units 20:41 08:14 Sodium 132 L 131 L (137-145) mmol/L Potassium 3.5 L 3.0 L (3.6-5.0) mmol/L Chloride 83.9 L 83.0 L (98-107) mmol/L Carbon Dioxide 28 29 (22-30) mmol/L BUN 98 H 99 H (9-20) mg/dL Creatinine 2.9 H 2.5 H (0.8-1.5) mg/dL Glucose 134 H 140 H (75-100) mg/dL Calcium 9.8 9.8 (8.4-10.2) mg/dL AST 36 (5-40) units/L ALT 34 (7-56) units/L Alkaline Phosphatase 173 H (35-129) units/L Total Protein 8.3 H (6.3-8.2) g/dL Albumin 3.7 L (3.9-5) g/dL - Imaging and Cardiology Cardiac cath: other (Pt underwent LHC and RHC at [place] on 10/24/2017 which showed angiographically normal coronary arteries, normal right-sided filling pressures with a mean RA pressure of 5 mmHg, mildly elevated pulmonary artery pressures with a mean PA pressure of 27 mmHg and PA pressure was 38/16mmHG, mildly elevated left-sided filling pressures with a mean PCWP of 18 mmHg with a directly measured LVEDP of 20 mmHg, normal cardiac output with a CO of 5.74 L/min with a cardiac index of 1.82 L/min/m2 using a the Albaro equation.) EKG interpretations - Telemetry EKG Rhythm: Sinus Rhythm (EKG done on 09/04/2019>Showed S.R,frequent PVC's.sometimes in coulpets,ivcd,prologed QT interval noted.QT prolongation is new from 06/14/2019.) Assessment and Plan Dilated NICMP - EF 10-15% AICD in situ REJI RLE DVT / subtherapeutic INR Frequent PVCs and NSVT LBBB HTN DM Morbid obesity Lymphedema Anemia H/o AFlutter s/p AFlutter ablation on 05/19/2019 - anticoagulated on coumadin The pt is a 34 YO male with a past medical history significant for chronic systolic heart failure, dilated NICMP, AICD in situ ([employer]), frequent PVCs and NSVT, HTN, DM, RLE DVT, anticoagulated with coumadin, morbid obesity, lymphedema. He has been seen by our practice on prior hospitalizations and follows at [facility]. 09/05/2019>Presently being followed by at [facility],planning to be started on ?Milrinone drip,accidently dropped O2 tank,camre to ER because of leg pain. Was admitted for f/u of elevated BUN/creat and fluid overload. Nephrology on board. Cardiac goodwin stable,has chronic ventricular arrhythmia.Continue present rx, and monitor BUN/creat and electrolytes.Was noted to have prolonged QT on EKG.
[2019-09-05] MEDS: HYDROmorphone 1 MG/1 ML INJ IV PRN ×2 (18:43→23:50)
[2019-09-05] MEDS: WARFARIN 10 MG TAB PO SCH (18:44)
[2019-09-06] MEDS: oxyCODONE /ACETAMINOPHEN 5-325MG TAB PO PRN ×3 (04:21→19:27)
[2019-09-06] MEDS: HYDROmorphone 1 MG/1 ML INJ IV PRN ×3 (05:15→15:51)
[2019-09-06] MEDS: FUROSEMIDE 40 MG/4 ML INJ IV SCH (05:15)
[2019-09-06] MEDS ORDERED: ERGOCALCIFEROL (VIT D2) 50,000 UNIT CAP PO SCH (08:00)
[2019-09-06] MEDS: ASPIRIN EC 81 MG TAB PO SCH (09:42)
[2019-09-06] MEDS: metOLazone 2.5 MG TAB PO SCH (09:43)
[2019-09-06] MEDS: POTASSIUM CHLORIDE ER 20 MEQ TAB PO SCH ×2 (09:44→21:56)
[2019-09-06] MEDS: SPIRONOLACTONE 25 MG TAB PO SCH (09:45)
[2019-09-06] MEDS: carvediloL 3.125 MG TAB PO SCH (09:49)
[2019-09-06] MEDS: INSULIN LISPRO 100 UNIT/ML SUB-Q SCH ×4 (09:55→21:56)
--- NOTE | 2019-09-06 11:09 | Progress Note ---
Assessment and Plan Assessment: Acute on chronic HFrEF Dilated NICMP - EF 10-15% AICD in situ REJI Chronic RLE DVT / subtherapeutic INR Frequent chronic PVCs and NSVT LBBB HTN DM Morbid obesity Lymphedema Anemia H/o AFlutter s/p AFlutter ablation on 05/19/2019 - anticoagulated on coumadin Plan: Cont low dose coreg and diuresis as tolerated. Per nephrology, hold entresto and aldactone for now. f/u BMP. The patient has been seen in conjunction with Dr. Silas Berg who agrees with the assessment and plan of care. Subjective Date of service: 09/06/19 Principal diagnosis: HF Interval history: pt resting in bed, feeling better, SOB and BLE swelling improving. in SR on tele with freq PVCs and NSVT which is chronic, pt asymptomatic. Objective Last Vital Signs Temp 98.0 F 09/06/19 05:39 Pulse 63 09/06/19 05:39 Resp 20 09/06/19 05:39 BP 90/62 09/06/19 09:49 Pulse Ox 96 09/06/19 09:12 - Physical Examination General: No Apparent Distress HEENT: Positive: PERRL Neck: Positive: trachea midline Cardiac: Positive: Reg Rate and Rhythm, S1/S2 Lungs: Positive: Decreased Breath Sounds Neuro: Positive: Grossly Intact Abdomen: Positive: Soft Skin: Negative: Rash Extremities: Present: +2 Edema (Massive chronic bilateral lymphedma noted.) - Imaging and Cardiology Echo: report reviewed (03/03/2019 showed EF 15-20%, LV severely dilated, grade 2 diastolic dysfunction, mild to mod TR, mild to mod MR, mod reduced RV systolic function, RVSP 57mmHg.) Cardiac cath: other (Pt underwent LHC and RHC at [place] on 10/24/2017 which showed angiographically normal coronary arteries, normal right-sided filling pressures with a mean RA pressure of 5 mmHg, mildly elevated pulmonary artery pressures with a mean PA pressure of 27 mmHg and PA pressure was 38/16mmHG, mildly elevated left-sided filling pressures with a mean PCWP of 18 mmHg with a directly measured LVEDP of 20 mmHg, normal cardiac output with a CO of 5.74 L/min with a cardiac index of 1.82 L/min/m2 using a the Albaro equation.) - Telemetry EKG Rhythm: Sinus Rhythm
[2019-09-06 11:12] LABS: INR 1.83 (0.87-1.13)
--- NOTE | 2019-09-06 11:16 | Progress Note ---
Assessment and Plan - Patient Problems (1) REJI (acute kidney injury) Current Visit: No Status: Acute Plan to address problem: secondary to acute cardiorenal syndrome, cont gentle diuresis. Hold sacubitril/valsartan and spironolactone for now. Stop metformin since GFR is less than 30 mils per minute due to risk of lactic acidosis. Follow-up electr olytes and renal function (2) Cardiorenal syndrome with renal failure Current Visit: Yes Status: Acute (3) Hyponatremia Current Visit: No Status: Resolved Plan to address problem: Hypervolemic hyponatremia. Follow-up sodium with diuretics (4) Hypokalemia Current Visit: Yes Status: Acute Plan to address problem: Supplement potassium and follow-up level. (5) Anemia Current Visit: Yes Status: Chronic Plan to address problem: Follow-up hemoglobin. (6) Acute on chronic systolic (congestive) heart failure Current Visit: No Status: Acute Plan to address problem: Continue diuresis. Encourage adherence to sodium and fluid restriction. Strict intake and output monitoring. Follow-up volume status (7) Hypertensive chronic kidney disease with stage 1 through stage 4 chronic kidney disease, or unspecified chronic kidney disease Current Visit: No Status: Acute Plan to address problem: Monitor BP on current medications (8) T2DM (type 2 diabetes mellitus) Current Visit: No Status: Chronic Qualifiers: Diabetes mellitus intermodal dispatcher insulin use: without intermodal dispatcher use Plan to address problem: Blood sugar management by primary attending Subjective Date of service: 09/06/19 Principal diagnosis: HF Interval history: Pt awake, alert, denies, CP, SOB, palpitations, fever, chills, n/v/d Objective - Vital Signs Vital signs: Vital Signs - 12hr 09/05/19 09/06/19 09/06/19 23:50 00:27 00:30 Temperature 97.5 F L Pulse Rate 50 L Respiratory 20 22 Rate Blood Pressure 86/62 Blood Pressure 92/70 [Right] O2 Sat by Pulse 99 Oximetry 09/06/19 09/06/19 09/06/19 04:21 05:15 05:39 Temperature 98.0 F Pulse Rate 63 Respiratory 20 20 20 Rate Blood Pressure 89/53 Blood Pressure [Right] O2 Sat by Pulse 98 Oximetry 09/06/19 09/06/19 09/06/19 09:12 09:45 09:49 Temperature Pulse Rate Respiratory Rate Blood Pressure 90/62 90/62 Blood Pressure [Right] O2 Sat by Pulse 96 Oximetry - General Appearance General appearance: well-developed, well-nourished, appears stated age, obese, chronically ill EENT: ATNC, PERRL, mucous membranes moist Neck: no JVD Respiratory: Present: Decreased Breath Sounds Cardiology: regular, S1S2 Gastrointestinal: obese Integumentary: no rash, other (++ edema ) Neurologic: no focal deficit, alert and oriented x3, strength 5/5, CN 3-12 intact Psychiatric: mood/affect appropriate, cooperative - Lab 09/05/19 08:14 09/05/19 08:14 Most recent lab results Calcium 9.8 mg/dL (8.4-10.2) 09/05/19 08:14 Magnesium 2.50 mg/dL (1.7-2.3) H 09/04/19 20:41 Medications & Allergies - Medications Allergies/Adverse Reactions: Allergies hydrochlorothiazide Allergy (Verified 06/22/19 07:28) Unknown prochlorperazine [From Compazine] Allergy (Verified 04/14/18 12:13) Hives Home Medications: Home Medications Medication Instructions Recorded Confirmed Last Taken Type Cholecalciferol (Vitamin D3) 50,000 unit PO QWEEK 04/08/19 09/04/19 04/04/19 History [Vitamin D3 50,000UNIT CAP] Lispro Insulin [HumaLOG] 0 unit SUB-Q ACHS units 04/11/19 09/04/19 Unknown Rx Spironolactone [Aldactone] 25 mg PO QDAY #90 tablet 06/21/19 09/04/19 Unknown Rx Warfarin [Coumadin] 10 mg PO DAILY@1700 #30 tablet 06/21/19 09/04/19 Unknown Rx carvediloL [Coreg] 3.125 mg PO BID #60 tablet 06/21/19 09/04/19 Unknown Rx metFORMIN XR [Glucophage XR] 500 mg PO QDAY #90 tab 06/21/19 09/04/19 Unknown Rx Aspirin EC [Halfprin EC] 81 mg PO DAILY #30 tablet 06/24/19 09/04/19 Unknown Rx AtorvaSTATin [Lipitor] 40 mg PO QHS #60 tablet 06/24/19 09/04/19 Unknown Rx Bumetanide [Bumex 1 mg tab] 1 mg PO BID #60 tab 06/24/19 09/04/19 Unknown Rx Sacubitril/Valsartan [Entresto 1 each PO BID #60 tablet 06/24/19 09/04/19 Unknown Rx 49-51 mg] metOLazone [Zaroxolyn] 2.5 mg PO QDAY #30 tablet 06/24/19 09/04/19 Unknown Rx oxyCODONE /ACETAMINOPHEN [Percocet 2 tab PO Q5H PRN 09/05/19 09/05/19 Unknown History 5/325] Active Medications: Generic Name Dose Route Start Last Admin Trade Name Freq PRN Reason Stop Dose Admin Acetaminophen 650 mg 09/04/19 22:38 Tylenol PO Q4H PRN Pain MILD(1-3)/Fever >100.5/ROBERSON Aspirin 81 mg 09/05/19 10:00 09/06/19 09:42 Halfprin Ec PO 81 mg DAILY [facility] Administration Atorvastatin Calcium 40 mg 09/05/19 22:00 09/05/19 22:15 Lipitor PO 40 mg QHS [facility] Administration Carvedilol 3.125 mg 09/05/19 10:00 09/06/19 09:49 Coreg PO Not Given BID [facility] Dextrose 0 ml 09/04/19 22:49 D50w (25gm) Syringe IV Q30MIN PRN Hypoglycemia Protocol Ergocalciferol 50,000 unit 09/06/19 08:00 09/06/19 09:44 Vitamin D2 PO 50,000 unit Mo [facility] Administration Furosemide 40 mg 09/05/19 06:00 09/06/19 05:15 Lasix IV 40 mg BID@0600,1800 [facility] Administration Hydromorphone HCl 0.5 mg 09/05/19 14:49 09/06/19 09:54 Dilaudid IV 0.5 mg Q3H PRN Administration Pain , Severe (7-10) Insulin Human Lispro 0 unit 09/05/19 07:30 09/06/19 09:55 Humalog SUB-Q Not Given ACHS [facility] Protocol Magnesium Hydroxide 30 ml 09/04/19 22:38 Milk Of Magnesia PO Q4H PRN Constipation Metolazone 2.5 mg 09/05/19 10:00 09/06/19 09:43 Zaroxolyn PO 2.5 mg QDAY [facility] Administration Morphine Sulfate 2 mg 09/04/19 22:38 Morphine IV Q5MIN PRN Chest Pain unrelieved by NTG Ondansetron HCl 4 mg 09/04/19 22:38 Zofran IV Q8H PRN Nausea And Vomiting Oxycodone/Acetaminophen 2 tab 09/05/19 09:24 09/06/19 04:21 Percocet 5/325 PO 2 tab Q6H PRN Administration Pain, Moderate (4-6) Potassium Chloride 20 meq 09/05/19 14:00 09/06/19 09:44 K-Dur PO 20 meq BID [facility] Administration Potassium Chloride 40 meq 09/06/19 13:00 K-Dur PO 09/06/19 13:01 ONCE ONE Sodium Chloride 10 ml 09/05/19 10:00 09/06/19 09:58 Sodium Chloride Flush Syringe 10 Ml IV 10 ml BID [facility] Administration Sodium Chloride 10 ml 09/04/19 22:38 Sodium Chloride Flush Syringe 10 Ml IV PRN PRN LINE FLUSH Spironolactone 25 mg 09/05/19 10:00 09/06/19 09:45 Aldactone PO 25 mg QDAY [facility] Administration Warfarin Sodium 10 mg 09/05/19 17:00 09/05/19 18:44 Coumadin PO 10 mg DAILY@1700 [facility] Administration Protocol
[2019-09-06] MEDS: SACUBITRIL/VALSARTAN 49-51 MG TAB PO SCH (11:29)
--- NOTE | 2019-09-06 11:49 | XRay Report ---
RIGHT FOOT 3 VIEWS INDICATION: sp trauma, r foot pain. COMPARISON: None. IMPRESSION: There is diffuse soft tissue swelling or edema. No soft tissue gas or foreign body. Nor mal bone mineralization. No evidence for fracture, significant joint pathology or bony destruction. Signer Name: West Velázquez Jr, MD Signed: 09/06/2019 11:45 AM Workstation Name: [id number]
[2019-09-06] MEDS ORDERED: POTASSIUM CHLORIDE ER 20 MEQ TAB PO ONE (13:00)
[2019-09-06] MEDS: WARFARIN 10 MG TAB PO SCH (17:21)
[2019-09-06] MEDS: BUMETANIDE 1 MG/4 ML INJ IV SCH (17:22)
--- NOTE | 2019-09-06 18:53 | Progress Note ---
Assessment and Plan Assessment and plan: 34-year-old man who presents to the hospital after his oxygen tank accidentally dropped on his right foot. The patient has a history of chronic systolic CHF and is also complaining of worsening swelling his lower extremities and trouble breathing. Trauma to right lower extremity X-ray negative for fracture, pain control, physical therapy. Patient has walker at home Acute on chronic systolic heart failure, Received diuretics Chronic hypoxic respiratory failure Continue oxygen supplement Acute kidney injury due to vasomotor nephropathy/cardiorenal syndrome Improved with diuresis, A flutter status post ablation May 2019 Hypercoagulable state; on warfarin. DVT prophylaxis; patient is fully anticoagulated with warfarin Preventative health counseling performed for 17 minutes 09/06; patient became hypotensive, BP meds adjusted, diuretics discontinued. Beta-nilson changed from Coreg to metoprolol. Preventative health counseling performed for 17 minutes Disposition; tentative discharge home tomorrow, if blood pressure is stable and if creatinine continues to improve History Interval history: Continues to complain of right foot pain, it is improved with pain medications Review of systems Constitutional: No fevers, no malaise, no joint pains CVS: No chest pain, complaining of orthopnea and bipedal edema GI: No abdominal pain, no diarrhea, no vomiting, no constipation Respiratory: no wheezing, no coughing Hospitalist Physical - Physical exam Narrative exam: General.: Appears well, no distress, nontoxic, morbidly obese HEENT: Moist mucous membranes, extraocular muscles intact, no lymphadenopathy Neck: supple Cardiac: S1-S2 heard Lungs: clear to auscultation bilaterally Abdomen: soft , nontender, nondistended, bowel sounds positive Extremities: Bilateral lower extremity edema and lymphedema Skin: no rash or lesions Neurologic: no gross focal deficits Psych: calm, and cooperative - Constitutional Vitals: Temp Pulse Resp BP Pulse Ox 97.3 F L 70 24 92/54 98 09/06/19 11:48 09/06/19 11:48 09/06/19 11:48 09/06/19 11:48 09/06/19 11:48 General appearance: Present: no acute distress, well-nourished, obese SABRINA score - Sabrina Score Age > 65: (0) No Aspirin use within the Past 7 Days: (1) Yes 3 or more CAD Risk Factors: (1) Yes 2 or more Angina events in past 24 hrs: (0) No Known CAD with more than 50% Stenosis: (0) No Elevated Cardiac Markers: (0) No ST Deviation Greater than 0.5mm: (0) No SABRINA Score: 2 Results - Labs CBC & Chem 7: 09/05/19 08:14 09/06/19 10:59 Labs: Laboratory Last Values WBC 5.4 K/mm3 (4.5-11.0) 09/05/19 08:14 RBC 5.02 M/mm3 (3.65-5.03) 09/05/19 08:14 Hgb 10.8 gm/dl (11.8-15.2) L 09/05/19 08:14 Hct 35.3 % (35.5-45.6) L 09/05/19 08:14 MCV 70 fl (84-94) L 09/05/19 08:14 MCH 22 pg (28-32) L 09/05/19 08:14 MCHC 31 % (32-34) L 09/05/19 08:14 RDW 22.4 % (13.2-15.2) H 09/05/19 08:14 Plt Count 278 K/mm3 (140-440) 09/05/19 08:14 Lymph % (Auto) 12.6 % (13.4-35.0) L 09/05/19 08:14 Norman % (Auto) 12.1 % (0.0-7.3) H 09/05/19 08:14 Eos % (Auto) 0.1 % (0.0-4.3) 09/05/19 08:14 Baso % (Auto) 1.2 % (0.0-1.8) 09/05/19 08:14 Lymph # 0.7 K/mm3 (1.2-5.4) L 09/05/19 08:14 Norman # 0.6 K/mm3 (0.0-0.8) 09/05/19 08:14 Eos # 0.0 K/mm3 (0.0-0.4) 09/05/19 08:14 Baso # 0.1 K/mm3 (0.0-0.1) 09/05/19 08:14 Seg Neutrophils % 74.0 % (40.0-70.0) H 09/05/19 08:14 Seg Neutrophils # 4.0 K/mm3 (1.8-7.7) 09/05/19 08:14 PT 21.5 Sec. (12.2-14.9) H 09/06/19 10:22 INR 1.83 (0.87-1.13) H 09/06/19 10:22 APTT 36.1 Sec. (24.2-36.6) 09/05/19 08:14 Sodium 128 mmol/L (137-145) L 09/06/19 10:59 Potassium 4.9 mmol/L (3.6-5.0) D 09/06/19 10:59 Chloride 83.5 mmol/L (98-107) L 09/06/19 10:59 Carbon Dioxide 26 mmol/L (22-30) 09/06/19 10:59 Anion Gap 23 mmol/L 09/06/19 10:59 BUN 97 mg/dL (9-20) H 09/06/19 10:59 Creatinine 2.1 mg/dL (0.8-1.5) H 09/06/19 10:59 Estimated GFR 44 ml/min 09/06/19 10:59 BUN/Creatinine Ratio 46 % 09/06/19 10:59 Glucose 145 mg/dL (75-100) H 09/06/19 10:59 POC Glucose 122 (70-105) H 09/06/19 17:21 Hemoglobin A1c 7.7 % (4-6) H 09/04/19 23:18 Calcium 9.0 mg/dL (8.4-10.2) 09/06/19 10:59 Magnesium 2.50 mg/dL (1.7-2.3) H 09/04/19 20:41 Total Bilirubin 1.80 mg/dL (0.1-1.2) H 09/04/19 20:41 AST 36 units/L (5-40) 09/04/19 20:41 ALT 34 units/L (7-56) 09/04/19 20:41 Alkaline Phosphatase 173 units/L (35-129) H 09/04/19 20:41 Total Creatine Kinase 135 units/L (55-170) 09/04/19 20:41 NT-Pro-B Natriuret Pep 2649 pg/mL (0-450) H 09/04/19 20:41 Total Protein 8.3 g/dL (6.3-8.2) H 09/04/19 20:41 Albumin 3.7 g/dL (3.9-5) L 09/04/19 20:41 Albumin/Globulin Ratio 0.8 % 09/04/19 20:41 Active Medications - Current Medications Current Medications: Generic Name Dose Route Start Last Admin Trade Name Freq PRN Reason Stop Dose Admin Acetaminophen 650 mg 09/04/19 22:38 Tylenol PO Q4H PRN Pain MILD(1-3)/Fever >100.5/ROBERSON Aspirin 81 mg 09/05/19 10:00 09/06/19 09:42 Halfprin Ec PO 81 mg DAILY [facility] Administration Atorvastatin Calcium 40 mg 09/05/19 22:00 09/05/19 22:15 Lipitor PO 40 mg QHS [facility] Administration Bumetanide 1 mg 09/06/19 18:00 09/06/19 17:22 Bumex IV 1 mg BID@0600,1800 [facility] Administration Dextrose 0 ml 09/04/19 22:49 D50w (25gm) Syringe IV Q30MIN PRN Hypoglycemia Protocol Ergocalciferol 50,000 unit 09/06/19 08:00 09/06/19 09:44 Vitamin D2 PO 50,000 unit Mo [facility] Administration Hydromorphone HCl 0.5 mg 09/05/19 14:49 09/06/19 15:51 Dilaudid IV 0.5 mg Q3H PRN Administration Pain , Severe (7-10) Insulin Human Lispro 0 unit 09/05/19 07:30 09/06/19 17:22 Humalog SUB-Q Not Given ACHS [facility] Protocol Magnesium Hydroxide 30 ml 09/04/19 22:38 Milk Of Magnesia PO Q4H PRN Constipation Metolazone 2.5 mg 09/05/19 10:00 09/06/19 09:43 Zaroxolyn PO 2.5 mg QDAY [facility] Administration Metoprolol Tartrate 12.5 mg 09/06/19 22:00 Metoprolol PO BID [facility] Morphine Sulfate 2 mg 09/04/19 22:38 Morphine IV Q5MIN PRN Chest Pain unrelieved by NTG Ondansetron HCl 4 mg 09/04/19 22:38 Zofran IV Q8H PRN Nausea And Vomiting Oxycodone/Acetaminophen 2 tab 09/05/19 09:24 09/06/19 11:39 Percocet 5/325 PO 2 tab Q6H PRN Administration Pain, Moderate (4-6) Potassium Chloride 20 meq 09/05/19 14:00 09/06/19 09:44 K-Dur PO 20 meq BID [facility] Administration Sodium Chloride 10 ml 09/05/19 10:00 09/06/19 09:58 Sodium Chloride Flush Syringe 10 Ml IV 10 ml BID [facility] Administration Sodium Chloride 10 ml 09/04/19 22:38 Sodium Chloride Flush Syringe 10 Ml IV PRN PRN LINE FLUSH Warfarin Sodium 10 mg 09/05/19 17:00 09/06/19 17:21 Coumadin PO 10 mg DAILY@1700 [facility] Administration Protocol Nutrition/Malnutrition Assess - Dietary Evaluation Nutrition/Malnutrition Findings: Nutrition Notes Start: 09/06/19 16:02 Freq: Status: Active Protocol: Document 09/06/19 16:02 OH (Rec: 09/06/19 16:09 OH [id number]) Nutrition Notes Need for Assessment generated from: MD Order Initial or Follow up Assessment Current Diagnosis Diabetes,Hypertension,Heart Failure Other Pertinent Diagnosis MORBID OBESITY Current Diet cardiac consistent CHO Labs/Tests na 131 k+ 3.0 bun 99 hgba1c 7.7 Pertinent Medications coumadin metformin Height 6 ft 1 in Weight 235 kg [place] Body Weight (kg) 83.63 BMI 68.3 Weight Status Morbidly Obese Subjective/Other Information MD consult for diet education. Pt. verbalized he recently moved to the area. he is requesting vege/salad at meals . Pt. open to attending DM education class and senior copywriter took name/number to add to [facility] class list. Percent of energy/protein needs met: 100/100% Burn Absent Trauma Absent GI Symptoms None Current % PO Good (75-100%) Minimum of two criteria No physical signs of malnutrition #2 Nutrition Diagnosis Limited adherence to nutrition -related recommendations Etiology poor compliance w/dm recommendations As Evidenced by Signs and Symptoms poorly controlled dm/excessive wt #1 Nutrition Diagnosis Overweight/obesity Etiology excessive intake of non nutritive food sources As Evidenced by Signs and Symptoms BMI >40 Is patient on ventilator? No Is Patient Ambulatory and/or Out of Bed Yes REE-([place]-St. Jeor-ambulatory/OOB) [ 4353.544 NUTR.MSJOOB] Kcal/Kg value to use for calculation 8 Approximate Energy Requirements Using 1880 kcal/Kg Calculation Used for Recommendations Kcal/kg Additional Notes FLUID: 1 mL/kcal PRO: 0.8-1.0 G/KG 66-83 G/DAY Nutrition Intervention Change Diet Order: CONT CARDIAC/CONSISTENT CHO Teaching Recipient Patient Learning Readiness Good Teaching Methods Discussion Response to Teaching Verbalize understanding Education Handouts Provided Discussed w/pt need to closely monitor diabetes and improve managment of weight. Educ pt on relationship b/t po intake/ wt/diabetes/risk for ESRD. Enc lessening all processed foods and concentrating on increasing activity. Barriers to Learning Motivation,Physical,Emotional, Cultural,Financial, Environmental,Social Follow-Up By: 09/10/19
[2019-09-06] MEDS: METOPROLOL TARTRATE 25 MG TAB PO SCH (21:56)
[2019-09-06] MEDS: MORPHINE 2 MG/1 ML INJ IV PRN (21:58)
--- NOTE | 2019-09-06 23:58 | Event Note ---
Patient having runs of V. tach, transferred to telemetry, check magnesium level, BMP
[2019-09-07] MEDS: MORPHINE 2 MG/1 ML INJ IV PRN ×2 (00:54→10:23)
[2019-09-07] MEDS: HYDROmorphone 1 MG/1 ML INJ IV PRN ×2 (03:23→08:01)
[2019-09-07 07:36] LABS: INR 1.98 (0.87-1.13)
[2019-09-07 07:48] LABS: Calcium 8.8 mg/dL (8.4-10.2)
[2019-09-07 08:08] LABS: Mean Corpuscular HGB Conc 30 % (32-34); Mean Corpuscular Volume 71 fl (84-94); Platelet Count 257 K/mm3 (140-440); Red Blood Count 4.99 M/mm3 (3.65-5.03)
[2019-09-07 08:09] LABS: Hematocrit 35.6 % (35.5-45.6); Hemoglobin 10.6 gm/dl (11.8-15.2); Red Cell Distribution Width 22.5 % (13.2-15.2)
[2019-09-07] MEDS: INSULIN LISPRO 100 UNIT/ML SUB-Q SCH ×4 (08:45→21:08)
[2019-09-07 09:18] LABS: Eosinophils % (Manual) 0 % (0.0-4.3); Total Cells Counted 100
[2019-09-07 09:19] LABS: Anisocytosis 1+; Hypochromasia 2+; Target Cells 1+
[2019-09-07 09:20] LABS: Platelet Estimate Consistent w Auto
--- NOTE | 2019-09-07 09:53 | Progress Note ---
Assessment and Plan Assessment: Acute on chronic HFrEF Dilated NICMP - EF 10-15% AICD in situ REJI Chronic RLE DVT / subtherapeutic INR Frequent chronic PVCs and NSVT LBBB HTN DM Morbid obesity Lymphedema Anemia H/o AFlutter s/p AFlutter ablation on 05/19/2019 - anticoagulated on coumadin Plan: Cont low dose coreg and diuresis as tolerated. Per nephrology, hold entresto and aldactone for now. monitor renal indices. anticipate d/c in am. The patient has been seen in conjunction with Dr. Silas Berg who agrees with the assessment and plan of care. Subjective Date of service: 09/07/19 Principal diagnosis: HF Interval history: pt resting in bed, feeling better, SOB and BLE swelling improving. in SR on tele with freq PVCs and NSVT which is chronic, pt asymptomatic. Objective Last Vital Signs Temp 98.0 F 09/07/19 03:59 Pulse 75 09/07/19 04:00 Resp 18 09/07/19 03:59 BP 81/60 09/07/19 03:59 Pulse Ox 100 09/07/19 04:00 - Physical Examination General: No Apparent Distress HEENT: Positive: PERRL Neck: Positive: trachea midline Cardiac: Positive: Reg Rate and Rhythm, S1/S2 Lungs: Positive: Decreased Breath Sounds Neuro: Positive: Grossly Intact Abdomen: Positive: Soft Skin: Negative: Rash Extremities: Present: +2 Edema (Massive chronic bilateral lymphedma noted.) - Labs and Meds Coagulation 09/06/19 09/07/19 Range/Units 10:22 07:01 PT 21.5 H 22.9 H (12.2-14.9) Sec. INR 1.83 H 1.98 H (0.87-1.13) CBC 09/07/19 Range/Units 07:54 WBC 4.1 L (4.5-11.0) K/mm3 RBC 4.99 (3.65-5.03) M/mm3 Hgb 10.6 L (11.8-15.2) gm/dl Hct 35.6 (35.5-45.6) % Plt Count 257 (140-440) K/mm3 Comprehensive Metabolic Panel 09/06/19 09/07/19 Range/Units 10:59 07:01 Sodium 128 L 131 L (137-145) mmol/L Potassium 4.9 D 4.8 (3.6-5.0) mmol/L Chloride 83.5 L 86.1 L (98-107) mmol/L Carbon Dioxide 26 28 (22-30) mmol/L BUN 97 H 97 H (9-20) mg/dL Creatinine 2.1 H 2.2 H (0.8-1.5) mg/dL Glucose 145 H 139 H (75-100) mg/dL Calcium 9.0 8.8 (8.4-10.2) mg/dL - Imaging and Cardiology Echo: report reviewed (03/03/2019 showed EF 15-20%, LV severely dilated, grade 2 diastolic dysfunction, mild to mod TR, mild to mod MR, mod reduced RV systolic function, RVSP 57mmHg.) Cardiac cath: other (Pt underwent LHC and RHC at [place] on 10/24/2017 which showed angiographically normal coronary arteries, normal right-sided filling pressures with a mean RA pressure of 5 mmHg, mildly elevated pulmonary artery pressures with a mean PA pressure of 27 mmHg and PA pressure was 38/16mmHG, mildly elevated left-sided filling pressures with a mean PCWP of 18 mmHg with a directly measured LVEDP of 20 mmHg, normal cardiac output with a CO of 5.74 L/min with a cardiac index of 1.82 L/min/m2 using a the Albaro equation.)
[2019-09-07] MEDS: METOPROLOL TARTRATE 25 MG TAB PO SCH ×2 (10:23→21:02)
[2019-09-07] MEDS: ASPIRIN EC 81 MG TAB PO SCH (10:23)
[2019-09-07] MEDS: metOLazone 2.5 MG TAB PO SCH (10:23)
--- NOTE | 2019-09-07 16:58 | Progress Note ---
Assessment and Plan - Patient Problems (1) REJI (acute kidney injury) Current Visit: No Status: Acute Plan to address problem: secondary to acute cardiorenal syndrome, cont gentle diuresis, given improved volume status we can transition to po bumex in AM. Hold sacubitril/valsartan and spironolactone for now. Stop metformin since GFR is less than 30 mils per minute due to risk of lactic acidosis. stable for discharge from renal stand point with outpatient CKD f/u in 1-2 weeks post discharge. (2) Cardiorenal syndrome with renal failure Current Visit: Yes Status: Acute (3) Hyponatremia Current Visit: No Status: Resolved Plan to address problem: Hypervolemic hyponatremia. Follow-up sodium with diuretics (4) Hypokalemia Current Visit: Yes Status: Acute Plan to address problem: Supplement potassium and follow-up level. (5) Anemia Current Visit: Yes Status: Chronic Plan to address problem: Follow-up hemoglobin. (6) Acute on chronic systolic (congestive) heart failure Current Visit: No Status: Acute Plan to address problem: Continue diuresis. Encourage adherence to sodium and fluid restriction. Strict intake and output monitoring. Follow-up volume status (7) Hypertensive chronic kidney disease with stage 1 through stage 4 chronic kidney disease, or unspecified chronic kidney disease Current Visit: No Status: Acute Plan to address problem: Monitor BP on current medications (8) T2DM (type 2 diabetes mellitus) Current Visit: No Status: Chronic Qualifiers: Diabetes mellitus terminal operator insulin use: without snf use Plan to address problem: Blood sugar management by primary attending Subjective Date of service: 09/07/19 Principal diagnosis: HF Interval history: Pt awake, alert, denies, CP, SOB, palpitations, fever, chills, n/v/d Objective - Vital Signs Vital signs: Vital Signs - 12hr 09/07/19 09/07/19 09/07/19 08:20 08:47 10:00 Temperature 97.5 F L Pulse Rate 74 Pulse Rate [ 75 Left Radial] Pulse Rate [ 75 Right Radial] Respiratory 18 25 H Rate Blood Pressure 90/60 O2 Sat by Pulse 100 100 Oximetry 09/07/19 09/07/19 09/07/19 10:21 10:23 12:00 Temperature Pulse Rate 74 70 76 Pulse Rate [ Left Radial] Pulse Rate [ Right Radial] Respiratory Rate Blood Pressure 118/69 118/69 O2 Sat by Pulse 100 Oximetry 09/07/19 09/07/19 12:54 13:34 Temperature 98.0 F Pulse Rate 65 Pulse Rate [ Left Radial] Pulse Rate [ Right Radial] Respiratory 18 Rate Blood Pressure 110/63 94/58 O2 Sat by Pulse 99 Oximetry - General Appearance General appearance: well-developed, well-nourished, appears stated age, obese EENT: ATNC, PERRL, mucous membranes moist Neck: no JVD Respiratory: Present: Decreased Breath Sounds Cardiology: regular, S1S2 Gastrointestinal: normoactive bowel sounds, obese Integumentary: no rash, other (+ edema b/l LE ) Neurologic: no focal deficit, alert and oriented x3, strength 5/5, CN 3-12 intact Psychiatric: mood/affect appropriate, cooperative - Lab 09/07/19 07:54 09/07/19 07:01 Most recent lab results Calcium 8.8 mg/dL (8.4-10.2) 09/07/19 07:01 Magnesium 2.60 mg/dL (1.7-2.3) H 09/07/19 07:01 Medications & Allergies - Medications Allergies/Adverse Reactions: Allergies hydrochlorothiazide Allergy (Verified 06/22/19 07:28) Unknown prochlorperazine [From Compazine] Allergy (Verified 04/14/18 12:13) Hives Home Medications: Home Medications Medication Instructions Recorded Confirmed Last Taken Type Cholecalciferol (Vitamin D3) 50,000 unit PO QWEEK 04/08/19 09/04/19 04/04/19 History [Vitamin D3 50,000UNIT CAP] Lispro Insulin [HumaLOG] 0 unit SUB-Q ACHS units 04/11/19 09/04/19 Unknown Rx Spironolactone [Aldactone] 25 mg PO QDAY #90 tablet 06/21/19 09/04/19 Unknown Rx Warfarin [Coumadin] 10 mg PO DAILY@1700 #30 tablet 06/21/19 09/04/19 Unknown Rx carvediloL [Coreg] 3.125 mg PO BID #60 tablet 06/21/19 09/04/19 Unknown Rx metFORMIN XR [Glucophage XR] 500 mg PO QDAY #90 tab 06/21/19 09/04/19 Unknown Rx Aspirin EC [Halfprin EC] 81 mg PO DAILY #30 tablet 06/24/19 09/04/19 Unknown Rx AtorvaSTATin [Lipitor] 40 mg PO QHS #60 tablet 06/24/19 09/04/19 Unknown Rx Bumetanide [Bumex 1 mg tab] 1 mg PO BID #60 tab 06/24/19 09/04/19 Unknown Rx Sacubitril/Valsartan [Entresto 1 each PO BID #60 tablet 06/24/19 09/04/19 Unknown Rx 49-51 mg] metOLazone [Zaroxolyn] 2.5 mg PO QDAY #30 tablet 06/24/19 09/04/19 Unknown Rx oxyCODONE /ACETAMINOPHEN [Percocet 2 tab PO Q5H PRN 09/05/19 09/05/19 Unknown History 5/325] Active Medications: Generic Name Dose Route Start Last Admin Trade Name Freq PRN Reason Stop Dose Admin Acetaminophen 650 mg 09/04/19 22:38 Tylenol PO Q4H PRN Pain MILD(1-3)/Fever >100.5/ROBERSON Aspirin 81 mg 09/05/19 10:00 09/07/19 10:23 Halfprin Ec PO 81 mg DAILY [facility] Administration Atorvastatin Calcium 40 mg 09/05/19 22:00 09/06/19 22:35 Lipitor PO 40 mg QHS [facility] Administration Bumetanide 1 mg 09/06/19 18:00 09/06/19 17:22 Bumex IV 1 mg BID@0600,1800 [facility] Administration Dextrose 0 ml 09/04/19 22:49 D50w (25gm) Syringe IV Q30MIN PRN Hypoglycemia Protocol Ergocalciferol 50,000 unit 09/06/19 08:00 09/06/19 09:44 Vitamin D2 PO 50,000 unit Mo [facility] Administration Hydromorphone HCl 0.5 mg 09/05/19 14:49 09/07/19 08:01 Dilaudid IV 0.5 mg Q3H PRN Administration Pain , Severe (7-10) Insulin Human Lispro 0 unit 09/05/19 07:30 09/07/19 12:36 Humalog SUB-Q Not Given ACHS [facility] Protocol Magnesium Hydroxide 30 ml 09/04/19 22:38 Milk Of Magnesia PO Q4H PRN Constipation Metolazone 2.5 mg 09/05/19 10:00 09/07/19 10:23 Zaroxolyn PO 2.5 mg QDAY [facility] Administration Metoprolol Tartrate 12.5 mg 09/06/19 22:00 09/07/19 10:23 Metoprolol PO 12.5 mg BID [facility] Administration Morphine Sulfate 2 mg 09/04/19 22:38 09/07/19 10:23 Morphine IV 2 mg Q5MIN PRN Administration Chest Pain unrelieved by NTG Ondansetron HCl 4 mg 09/04/19 22:38 Zofran IV Q8H PRN Nausea And Vomiting Oxycodone/Acetaminophen 2 tab 09/05/19 09:24 09/06/19 19:27 Percocet 5/325 PO 2 tab Q6H PRN Administration Pain, Moderate (4-6) Sodium Chloride 10 ml 09/05/19 10:00 09/07/19 10:26 Sodium Chloride Flush Syringe 10 Ml IV 10 ml BID [facility] Administration Sodium Chloride 10 ml 09/04/19 22:38 09/07/19 03:26 Sodium Chloride Flush Syringe 10 Ml IV 10 ml PRN PRN Administration LINE FLUSH Warfarin Sodium 10 mg 09/05/19 17:00 09/06/19 17:21 Coumadin PO 10 mg DAILY@1700 [facility] Administration Protocol
[2019-09-07] MEDS: WARFARIN 10 MG TAB PO SCH (17:00)
--- NOTE | 2019-09-07 17:24 | Progress Note ---
Assessment and Plan Assessment and plan: Patient is a 34-year-old man who presents to the hospital after his oxygen tank accidentally dropped on his right foot. The patient has a history of chronic systolic CHF and is also complaining of worsening swelling his lower extremities and trouble breathing. Trauma to right lower extremity X-ray negative for fracture, pain control, physical therapy. 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 DVT prophylaxis; patient is fully anticoagulated with warfarin 09/06; patient became hypotensive, BP meds adjusted, diuretics discontinued. Beta-nilson changed from Coreg to metoprolol. Preventative health counseling performed for 17 minutes Disposition; continue present management, still sob, anticipate d/c tomorrow History Interval history: Patient was seen and examined. Follow-up on current diagnosis of CHF, sob is improving. Overnight uneventful as no events directly reported to me. Patient denies any chest pain, shortness breath, nausea/vomiting or severe headaches. Imaging, nursing note, chart, labs and old chart reviewed. Discussed with patient. Hospitalist Physical - Physical exam Narrative exam: Gen: WDWN, mo bmi 68.4, NAD, Awake, Alert, Orientated HEENT: NCAT, EOMI, PERRL, OP Clear Neck: supple, no adenopathy, no thyromegaly, no JVD CVS/Heart: RRR, normal S1S2, pulses present bilaterally Chest/Lungs: diminished bs bilaterally,, Symmetrical chest expansion, good air entry bilaterally GI/Abdomen: soft, NTND, good bowel sounds, no guarding or rebound /Bladder: no suprapubic tenderness, no CVA or paraspinal tenderness Extermity/Skin: charcot joint bilateral, ble non pitting edema MSK: FROM x 4 Neuro: CN 2-12 grossly intact, no new focal deficits Psych: calm - Constitutional Vitals: Temp Pulse Resp BP Pulse Ox 98.0 F 65 18 94/58 99 09/07/19 12:54 09/07/19 13:34 09/07/19 12:54 09/07/19 13:34 09/07/19 13:34 General appearance: Present: no acute distress, well-nourished, obese CRUZ score - Cruz Score Age > 65: (0) No Aspirin use within the Past 7 Days: (1) Yes 3 or more CAD Risk Factors: (1) Yes 2 or more Angina events in past 24 hrs: (0) No Known CAD with more than 50% Stenosis: (0) No Elevated Cardiac Markers: (0) No ST Deviation Greater than 0.5mm: (0) No CRUZ Score: 2 Results - Labs CBC & Chem 7: 09/07/19 07:54 09/07/19 07:01 Labs: Laboratory Last Values WBC 4.1 K/mm3 (4.5-11.0) L 09/07/19 07:54 RBC 4.99 M/mm3 (3.65-5.03) 09/07/19 07:54 Hgb 10.6 gm/dl (11.8-15.2) L 09/07/19 07:54 Hct 35.6 % (35.5-45.6) 09/07/19 07:54 MCV 71 fl (84-94) L 09/07/19 07:54 MCH 21 pg (28-32) L 09/07/19 07:54 MCHC 30 % (32-34) L 09/07/19 07:54 RDW 22.5 % (13.2-15.2) H 09/07/19 07:54 Plt Count 257 K/mm3 (140-440) 09/07/19 07:54 Lymph % (Auto) 12.6 % (13.4-35.0) L 09/05/19 08:14 [place] % (Auto) 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 Services 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 09/07/19 07:54 Eos % (Auto) 0.1 % (0.0-4.3) 09/05/19 08:14 Baso % (Auto) 1.2 % (0.0-1.8) 09/05/19 08:14 Lymph # 0.7 K/mm3 (1.2-5.4) L 09/05/19 08:14 [place] # 0.6 K/mm3 (0.0-0.8) 09/05/19 08:14 Eos # 0.0 K/mm3 (0.0-0.4) 09/05/19 08:14 Baso # 0.1 K/mm3 (0.0-0.1) 09/05/19 08:14 Add Manual Diff Complete 09/07/19 07:54 Total Counted 100 09/07/19 07:54 Seg Neutrophils % 74.0 % (40.0-70.0) H 09/05/19 08:14 Seg Neuts % (Manual) 70.0 % (40.0-70.0) 09/07/19 07:54 Band Neutrophils % 0 % 09/07/19 07:54 Lymphocytes % (Manual) 20.0 % (13.4-35.0) 09/07/19 07:54 Reactive Lymphs % (Man) 0 % 09/07/19 07:54 Monocytes % (Manual) 9.0 % (0.0-7.3) H 09/07/19 07:54 Eosinophils % (Manual) 0 % (0.0-4.3) 09/07/19 07:54 Basophils % (Manual) 1.0 % (0.0-1.8) 09/07/19 07:54 Metamyelocytes % 0 % 09/07/19 07:54 Myelocytes % 0 % 09/07/19 07:54 Promyelocytes % 0 % 09/07/19 07:54 Blast Cells % 0 % 09/07/19 07:54 Nucleated RBC % Not Reportable 09/07/19 07:54 Seg Neutrophils # 4.0 K/mm3 (1.8-7.7) 09/05/19 08:14 Seg Neutrophils # Man 2.9 K/mm3 (1.8-7.7) 09/07/19 07:54 Band Neutrophils # 0.0 K/mm3 09/07/19 07:54 Lymphocytes # (Manual) 0.8 K/mm3 (1.2-5.4) L 09/07/19 07:54 Abs React Lymphs (Man) 0.0 K/mm3 09/07/19 07:54 Monocytes # (Manual) 0.4 K/mm3 (0.0-0.8) 09/07/19 07:54 Eosinophils # (Manual) 0.0 K/mm3 (0.0-0.4) 09/07/19 07:54 Basophils # (Manual) 0.0 K/mm3 (0.0-0.1) 09/07/19 07:54 Metamyelocytes # 0.0 K/mm3 09/07/19 07:54 Myelocytes # 0.0 K/mm3 09/07/19 07:54 Promyelocytes # 0.0 K/mm3 09/07/19 07:54 Blast Cells # 0.0 K/mm3 09/07/19 07:54 WBC Morphology Not Reportable 09/07/19 07:54 Hypersegmented Neuts Not Reportable 09/07/19 07:54 Hyposegmented Neuts Not Reportable 09/07/19 07:54 Hypogranular Neuts Not Reportable 09/07/19 07:54 Smudge Cells Not Reportable 09/07/19 07:54 Toxic Granulation Not Reportable 09/07/19 07:54 Toxic Vacuolation Not Reportable 09/07/19 07:54 Dohle Bodies Not Reportable 09/07/19 07:54 Pelger-Huet Anomaly Not Reportable 09/07/19 07:54 Leslie Rods Not Reportable 09/07/19 07:54 Platelet Estimate Consistent w auto 09/07/19 07:54 Clumped Platelets Not Reportable 09/07/19 07:54 Plt Clumps, EDTA Not Reportable 09/07/19 07:54 Large Platelets Not Reportable 09/07/19 07:54 Giant Platelets Not Reportable 09/07/19 07:54 Platelet Satelliting Not Reportable 09/07/19 07:54 Plt Morphology Comment Not Reportable 09/07/19 07:54 RBC Morphology Not Reportable 09/07/19 07:54 Dimorphic RBCs Not Reportable 09/07/19 07:54 Polychromasia Few 09/07/19 07:54 Hypochromasia 2+ 09/07/19 07:54 Poikilocytosis Not Reportable 09/07/19 07:54 Anisocytosis 1+ 09/07/19 07:54 Microcytosis Not Reportable 09/07/19 07:54 Macrocytosis Not Reportable 09/07/19 07:54 Spherocytes Not Reportable 09/07/19 07:54 Pappenheimer Bodies Not Reportable 09/07/19 07:54 Sickle Cells Not Reportable 09/07/19 07:54 Target Cells 1+ 09/07/19 07:54 Tear Drop Cells Not Reportable 09/07/19 07:54 Ovalocytes Not Reportable 09/07/19 07:54 Helmet Cells Not Reportable 09/07/19 07:54 [place] Bodies Not Reportable 09/07/19 07:54 [place] Rings Not Reportable 09/07/19 07:54 [place] Cells Not Reportable 09/07/19 07:54 Bite Cells Not Reportable 09/07/19 07:54 Crenated Cell Not Reportable 09/07/19 07:54 Elliptocytes Few 09/07/19 07:54 Acanthocytes (Spur) Not Reportable 09/07/19 07:54 Rouleaux Not Reportable 09/07/19 07:54 Hemoglobin C Crystals Not Reportable 09/07/19 07:54 Schistocytes Not Reportable 09/07/19 07:54 Malaria parasites Not Reportable 09/07/19 07:54 [place] Bodies Not Reportable 09/07/19 07:54 Hem Pathologist Commnt No 09/07/19 07:54 PT 22.9 Sec. (12.2-14.9) H 09/07/19 07:01 INR 1.98 (0.87-1.13) H 09/07/19 07:01 APTT 36.1 Sec. (24.2-36.6) 09/05/19 08:14 Sodium 131 mmol/L (137-145) L 09/07/19 07:01 Potassium 4.8 mmol/L (3.6-5.0) 09/07/19 07:01 Chloride 86.1 mmol/L (98-107) L 09/07/19 07:01 Carbon Dioxide 28 mmol/L (22-30) 09/07/19 07:01 Anion Gap 22 mmol/L 09/07/19 07:01 BUN 97 mg/dL (9-20) H 09/07/19 07:01 Creatinine 2.2 mg/dL (0.8-1.5) H 09/07/19 07:01 Estimated GFR 42 ml/min 09/07/19 07:01 BUN/Creatinine Ratio 44 % 09/07/19 07:01 Glucose 139 mg/dL (75-100) H 09/07/19 07:01 POC Glucose 150 (70-105) H 09/07/19 16:30 Hemoglobin A1c 7.7 % (4-6) H 09/04/19 23:18 Calcium 8.8 mg/dL (8.4-10.2) 09/07/19 07:01 Magnesium 2.60 mg/dL (1.7-2.3) H 09/07/19 07:01 Total Bilirubin 1.80 mg/dL (0.1-1.2) H 09/04/19 20:41 AST 36 units/L (5-40) 09/04/19 20:41 ALT 34 units/L (7-56) 09/04/19 20:41 Alkaline Phosphatase 173 units/L (35-129) H 09/04/19 20:41 Total Creatine Kinase 135 units/L (55-170) 09/04/19 20:41 NT-Pro-B Natriuret Pep 2649 pg/mL (0-450) H 09/04/19 20:41 Total Protein 8.3 g/dL (6.3-8.2) H 09/04/19 20:41 Albumin 3.7 g/dL (3.9-5) L 09/04/19 20:41 Albumin/Globulin Ratio 0.8 % 09/04/19 20:41 Active Medications - Current Medications Current Medications: Generic Name Dose Route Start Last Admin Trade Name Freq PRN Reason Stop Dose Admin Acetaminophen 650 mg 09/04/19 22:38 Tylenol PO Q4H PRN Pain MILD(1-3)/Fever >100.5/ROBERSON Aspirin 81 mg 09/05/19 10:00 09/07/19 10:23 Halfprin Ec PO 81 mg DAILY CODY Administration Atorvastatin Calcium 40 mg 09/05/19 22:00 09/06/19 22:35 Lipitor PO 40 mg QHS CODY Administration Bumetanide 1 mg 09/06/19 18:00 09/06/19 17:22 Bumex IV 1 mg BID@0600,1800 CODY Administration Dextrose 0 ml 09/04/19 22:49 D50w (25gm) Syringe IV Q30MIN PRN Hypoglycemia Protocol Ergocalciferol 50,000 unit 09/06/19 08:00 09/06/19 09:44 Vitamin D2 PO 50,000 unit Mo CODY Administration Hydromorphone HCl 0.5 mg 09/05/19 14:49 09/07/19 08:01 Dilaudid IV 0.5 mg Q3H PRN Administration Pain , Severe (7-10) Insulin Human Lispro 0 unit 09/05/19 07:30 09/07/19 12:36 Humalog SUB-Q Not Given ACHS [facility] Protocol Magnesium Hydroxide 30 ml 09/04/19 22:38 Milk Of Magnesia PO Q4H PRN Constipation Metolazone 2.5 mg 09/05/19 10:00 09/07/19 10:23 Zaroxolyn PO 2.5 mg QDAY CODY Administration Metoprolol Tartrate 12.5 mg 09/06/19 22:00 09/07/19 10:23 Metoprolol PO 12.5 mg BID CODY Administration Ondansetron HCl 4 mg 09/04/19 22:38 Zofran IV Q8H PRN Nausea And Vomiting Oxycodone/Acetaminophen 2 tab 09/05/19 09:24 09/06/19 19:27 Percocet 5/325 PO 2 tab Q6H PRN Administration Pain, Moderate (4-6) Sodium Chloride 10 ml 09/05/19 10:00 09/07/19 10:26 Sodium Chloride Flush Syringe 10 Ml IV 10 ml BID CODY Administration Sodium Chloride 10 ml 09/04/19 22:38 09/07/19 03:26 Sodium Chloride Flush Syringe 10 Ml IV 10 ml PRN PRN Administration LINE FLUSH Warfarin Sodium 10 mg 09/05/19 17:00 09/06/19 17:21 Coumadin PO 10 mg DAILY@1700 [facility] Administration Protocol Nutrition/Malnutrition Assess - Dietary Evaluation Nutrition/Malnutrition Findings: Nutrition Notes Start: 09/06/19 16:02 Freq: Status: Active Protocol: Document 09/06/19 16:02 OH (Rec: 09/06/19 16:09 OH [id number]) Nutrition Notes Need for Assessment generated from: MD Order Initial or Follow up Assessment Current Diagnosis Diabetes,Hypertension,Heart Failure Other Pertinent Diagnosis MORBID OBESITY Current Diet cardiac consistent CHO Labs/Tests na 131 k+ 3.0 bun 99 hgba1c 7.7 Pertinent Medications coumadin metformin Height 6 ft 1 in Weight 235 kg [place] Body Weight (kg) 83.63 BMI 68.3 Weight Status Morbidly Obese Subjective/Other Information MD consult for diet education. Pt. verbalized he recently moved to the area. he is requesting vege/salad at meals . Pt. open to attending DM education class and signwriter took name/number to add to [facility] class list. Percent of energy/protein needs met: 100/100% Burn Absent Trauma Absent GI Symptoms None Current % PO Good (75-100%) Minimum of two criteria No physical signs of malnutrition #2 Nutrition Diagnosis Limited adherence to nutrition -related recommendations Etiology poor compliance w/dm recommendations As Evidenced by Signs and Symptoms poorly controlled dm/excessive wt #1 Nutrition Diagnosis Overweight/obesity Etiology excessive intake of non nutritive food sources As Evidenced by Signs and Symptoms BMI >40 Is patient on ventilator? No Is Patient Ambulatory and/or Out of Bed Yes REE-([place]. Jeor-ambulatory/OOB) [ 4353.544 NUTR.[id number]] Kcal/Kg value to use for calculation 8 Approximate Energy Requirements Using 1880 kcal/Kg Calculation Used for Recommendations Kcal/kg Additional Notes FLUID: 1 mL/kcal PRO: 0.8-1.0 G/KG 66-83 G/DAY Nutrition Intervention Change Diet Order: CONT CARDIAC/CONSISTENT CHO Teaching Recipient Patient Learning Readiness Good Teaching Methods Discussion Response to Teaching Verbalize understanding Education Handouts Provided Discussed w/pt need to closely monitor diabetes and improve managment of weight. Educ pt on relationship b/t po intake/ wt/diabetes/risk for ESRD. Enc lessening all processed foods and concentrating on increasing activity. Barriers to Learning Motivation,Physical,Emotional, Cultural,Financial, Environmental,Social Follow-Up By: 09/10/19
[2019-09-07] MEDS: BUMETANIDE 1 MG/4 ML INJ IV SCH (18:40)
[2019-09-07] MEDS: oxyCODONE /ACETAMINOPHEN 5-325MG TAB PO PRN (21:01)
[2019-09-08] MEDS: HYDROmorphone 1 MG/1 ML INJ IV PRN ×3 (01:34→15:21)
[2019-09-08] MEDS: oxyCODONE /ACETAMINOPHEN 5-325MG TAB PO PRN ×2 (05:23→11:40)
[2019-09-08] MEDS: BUMETANIDE 1 MG/4 ML INJ IV SCH ×2 (05:24→08:19)
[2019-09-08 08:17] LABS: INR 2.14 (0.87-1.13)
[2019-09-08 08:21] LABS: Mean Corpuscular HGB Conc 30 % (32-34); Mean Corpuscular Volume 71 fl (84-94); Platelet Count 256 K/mm3 (140-440); Red Blood Count 4.94 M/mm3 (3.65-5.03)
[2019-09-08 08:22] LABS: Hemoglobin 10.5 gm/dl (11.8-15.2)
[2019-09-08 08:23] LABS: Hematocrit 35.3 % (35.5-45.6); Red Cell Distribution Width 22.3 % (13.2-15.2)
[2019-09-08] MEDS: INSULIN LISPRO 100 UNIT/ML SUB-Q SCH ×3 (08:24→16:59)
[2019-09-08 08:27] LABS: Calcium 9.1 mg/dL (8.4-10.2)
[2019-09-08] MEDS: METOPROLOL TARTRATE 25 MG TAB PO SCH (09:20)
[2019-09-08] MEDS: metOLazone 2.5 MG TAB PO SCH (09:20)
[2019-09-08] MEDS: ASPIRIN EC 81 MG TAB PO SCH (09:20)
--- NOTE | 2019-09-08 10:44 | Progress Note ---
Assessment and Plan - Patient Problems (1) REJI (acute kidney injury) Current Visit: No Status: Acute Plan to address problem: secondary to acute cardiorenal syndrome, cont gentle diuresis, transitioned to bumex 2mg po bid. Hold sacubitril/valsartan and spironolactone for now. cont to hold metformin since GFR is less than 30 mils per minute due to risk of lactic acidosis. stable for discharge from renal stand point with outpatient CKD f/u in 1-2 weeks post discharge. (2) Cardiorenal syndrome with renal failure Current Visit: Yes Status: Acute (3) Hyponatremia Current Visit: No Status: Resolved Plan to address problem: Hypervolemic hyponatremia. Follow-up sodium with diuretics (4) Hypokalemia Current Visit: Yes Status: Acute Plan to address problem: Supplement potassium and follow-up level. (5) Anemia Current Visit: Yes Status: Chronic Plan to address problem: Follow-up hemoglobin. (6) Acute on chronic systolic (congestive) heart failure Current Visit: No Status: Acute Plan to address problem: Continue diuresis. Encourage adherence to sodium and fluid restriction. Strict intake and output monitoring. 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 insulin use: without alf use Plan to address problem: Blood sugar management by primary attending Subjective Date of service: 09/08/19 Principal diagnosis: HF Interval history: Pt awake, alert, denies, CP, SOB, palpitations, fever, chills, n/v/d Objective - Vital Signs Vital signs: Vital Signs - 12hr 09/07/19 09/08/19 09/08/19 23:12 01:28 03:33 Temperature 98.0 F 98.0 F 98.0 F Pulse Rate 66 70 Respiratory 18 18 18 Rate Blood Pressure 95/70 119/76 128/84 O2 Sat by Pulse 100 100 Oximetry 09/08/19 08:44 Temperature 97.4 F L Pulse Rate 58 L Respiratory 18 Rate Blood Pressure 105/82 O2 Sat by Pulse 100 Oximetry - General Appearance General appearance: well-developed, well-nourished, appears stated age, obese EENT: ATNC, PERRL, mucous membranes moist Neck: no JVD Respiratory: Present: Decreased Breath Sounds Cardiology: regular, S1S2 Gastrointestinal: normoactive bowel sounds, obese Integumentary: no rash, other (+ edema b/l LE ) Neurologic: no focal deficit, alert and oriented x3, strength 5/5, CN 3-12 intact Psychiatric: mood/affect appropriate, cooperative - Lab 09/08/19 07:27 09/08/19 07:27 Most recent lab results Calcium 9.1 mg/dL (8.4-10.2) 09/08/19 07:27 Magnesium 2.60 mg/dL (1.7-2.3) H 09/07/19 07:01 Medications & Allergies - Medications Allergies/Adverse Reactions: Allergies hydrochlorothiazide Allergy (Verified 06/22/19 07:28) Unknown prochlorperazine [From Compazine] Allergy (Verified 04/14/18 12:13) Hives Home Medications: Home Medications Medication Instructions Recorded Confirmed Last Taken Type Cholecalciferol (Vitamin D3) 50,000 unit PO QWEEK 04/08/19 09/04/19 04/04/19 History [Vitamin D3 50,000UNIT CAP] Lispro Insulin [HumaLOG] 0 unit SUB-Q ACHS units 04/11/19 09/04/19 Unknown Rx Spironolactone [Aldactone] 25 mg PO QDAY #90 tablet 06/21/19 09/04/19 Unknown Rx Warfarin [Coumadin] 10 mg PO DAILY@1700 #30 tablet 06/21/19 09/04/19 Unknown Rx carvediloL [Coreg] 3.125 mg PO BID #60 tablet 06/21/19 09/04/19 Unknown Rx metFORMIN XR [Glucophage XR] 500 mg PO QDAY #90 tab 06/21/19 09/04/19 Unknown Rx Aspirin EC [Halfprin EC] 81 mg PO DAILY #30 tablet 06/24/19 09/04/19 Unknown Rx AtorvaSTATin [Lipitor] 40 mg PO QHS #60 tablet 06/24/19 09/04/19 Unknown Rx Bumetanide [Bumex 1 mg tab] 1 mg PO BID #60 tab 06/24/19 09/04/19 Unknown Rx Sacubitril/Valsartan [Entresto 1 each PO BID #60 tablet 06/24/19 09/04/19 Unknown Rx 49-51 mg] metOLazone [Zaroxolyn] 2.5 mg PO QDAY #30 tablet 06/24/19 09/04/19 Unknown Rx oxyCODONE /ACETAMINOPHEN [Percocet 2 tab PO Q5H PRN 09/05/19 09/05/19 Unknown History 5/325] Active Medications: Generic Name Dose Route Start Last Admin Trade Name Freq PRN Reason Stop Dose Admin Acetaminophen 650 mg 09/04/19 22:38 Tylenol PO Q4H PRN Pain MILD(1-3)/Fever >100.5/ROBERSON Aspirin 81 mg 09/05/19 10:00 09/08/19 09:20 Halfprin Ec PO 81 mg DAILY CODY Administration Atorvastatin Calcium 40 mg 09/05/19 22:00 09/07/19 21:01 Lipitor PO 40 mg QHS CODY Administration Dextrose 0 ml 09/04/19 22:49 D50w (25gm) Syringe IV Q30MIN PRN Hypoglycemia Protocol Ergocalciferol 50,000 unit 09/06/19 08:00 09/06/19 09:44 Vitamin D2 PO 50,000 unit Mo CODY Administration Hydromorphone HCl 0.5 mg 09/05/19 14:49 09/08/19 09:20 Dilaudid IV 0.5 mg Q3H PRN Administration Pain , Severe (7-10) Insulin Human Lispro 0 unit 09/05/19 07:30 09/08/19 08:24 Humalog SUB-Q Not Given ACHS CODY Protocol Magnesium Hydroxide 30 ml 09/04/19 22:38 Milk Of Magnesia PO Q4H PRN Constipation Metolazone 2.5 mg 09/05/19 10:00 09/08/19 09:20 Zaroxolyn PO 2.5 mg QDAY CODY Administration Metoprolol Tartrate 12.5 mg 09/06/19 22:00 09/08/19 09:20 Metoprolol PO 12.5 mg BID CODY Administration Ondansetron HCl 4 mg 09/04/19 22:38 Zofran IV Q8H PRN Nausea And Vomiting Oxycodone/Acetaminophen 2 tab 09/05/19 09:24 09/08/19 05:23 Percocet 5/325 PO 2 tab Q6H PRN Administration Pain, Moderate (4-6) Sodium Chloride 10 ml 09/05/19 10:00 09/08/19 09:20 Sodium Chloride Flush Syringe 10 Ml IV 10 ml BID CODY Administration Sodium Chloride 10 ml 09/04/19 22:38 09/08/19 05:26 Sodium Chloride Flush Syringe 10 Ml IV 10 ml PRN PRN Administration LINE FLUSH Warfarin Sodium 10 mg 09/05/19 17:00 09/07/19 17:00 Coumadin PO 10 mg DAILY@1700 CODY Administration Protocol
--- NOTE | 2019-09-08 11:14 | Progress Note ---
Assessment and Plan Assessment: Acute on chronic HFrEF Dilated NICMP - EF 10-15% AICD in situ REJI Chronic RLE DVT / subtherapeutic INR Frequent chronic PVCs and NSVT LBBB HTN DM Morbid obesity Lymphedema Anemia H/o AFlutter s/p AFlutter ablation on 05/19/2019 - anticoagulated on coumadin Plan: Currently stable cardiac status. Pt appears to be nearing euvolemia. Pt may discharge from cardiology standpoint. Recommend resumption of home Entresto and aldactone if/when okay per nephrology. At discharge, recommend home bumex 1mg PO BID. Recommend pt follow up with his primary cardiology team at [facility] within 3-5 days. Pt verbalizes understanding. The patient has been seen in conjunction with Dr. Silas Berg who agrees with the assessment and plan of care. Subjective Date of service: 09/08/19 Principal diagnosis: HF Interval history: pt resting in bed, feeling better, SOB and BLE swelling improving. in SR on tele with freq PVCs and NSVT which is chronic, pt asymptomatic. Objective Last Vital Signs Temp 97.4 F L 09/08/19 08:44 Pulse 58 L 09/08/19 08:44 Resp 18 09/08/19 08:44 BP 105/82 09/08/19 08:44 Pulse Ox 100 09/08/19 08:44 - Physical Examination General: No Apparent Distress HEENT: Positive: PERRL Neck: Positive: trachea midline Cardiac: Positive: Reg Rate and Rhythm, S1/S2 Lungs: Positive: Decreased Breath Sounds Neuro: Positive: Grossly Intact Abdomen: Positive: Soft Skin: Negative: Rash Extremities: Present: +2 Edema (Massive chronic bilateral lymphedma noted.) - Labs and Meds Coagulation 09/08/19 Range/Units 07:27 PT 24.3 H (12.2-14.9) Sec. INR 2.14 H (0.87-1.13) CBC 09/08/19 Range/Units 07:27 WBC 3.3 L (4.5-11.0) K/mm3 RBC 4.94 (3.65-5.03) M/mm3 Hgb 10.5 L (11.8-15.2) gm/dl Hct 35.3 L (35.5-45.6) % Plt Count 256 (140-440) K/mm3 Comprehensive Metabolic Panel 09/08/19 Range/Units 07:27 Sodium 131 L (137-145) mmol/L Potassium 4.0 (3.6-5.0) mmol/L Chloride 86.1 L (98-107) mmol/L Carbon Dioxide 28 (22-30) mmol/L BUN 97 H (9-20) mg/dL Creatinine 2.1 H (0.8-1.5) mg/dL Glucose 100 (75-100) mg/dL Calcium 9.1 (8.4-10.2) mg/dL - Imaging and Cardiology Echo: report reviewed (03/03/2019 showed EF 15-20%, LV severely dilated, grade 2 diastolic dysfunction, mild to mod TR, mild to mod MR, mod reduced RV systolic function, RVSP 57mmHg.) Cardiac cath: other (Pt underwent LHC and RHC at [place] on 10/24/2017 which showed angiographically normal coronary arteries, normal right-sided filling pressures with a mean RA pressure of 5 mmHg, mildly elevated pulmonary artery pressures with a mean PA pressure of 27 mmHg and PA pressure was 38/16mmHG, mildly elevated left-sided filling pressures with a mean PCWP of 18 mmHg with a directly measured LVEDP of 20 mmHg, normal cardiac output with a CO of 5.74 L/min with a cardiac index of 1.82 L/min/m2 using a the Albaro equation.)
[2019-09-08 12:45] VITALS: BP 109/67
--- NOTE | 2019-09-08 16:21 | Discharge Summary ---
Providers - Providers Date of Admission: 09/06/19 18:52 Date of discharge: 09/08/19 Attending physician: ALONSO AGUILAR 09/04/19 22:43 Consult to Dietitian/Nutrition [CONS] Routine Physician Instructions: Reason For Exam: Reason for Consult: Diet education 09/05/19 12:24 Consult to Physician [CONS] Routine Comment: Consulting Provider: RICHI ALCALA Physician Instructions: Reason For Exam: chf Consult to Physician [CONS] Routine Comment: Consulting Provider: MARY CARMEN LIMON Physician Instructions: Reason For Exam: cindy 09/06/19 14:55 Physical Therapy Evaluation and Treat [CONS] Routine Comment: Reason For Exam: ataxia Primary care physician: [employer]PERVISOR Hospitalization Condition: Good Hospital course: Patient is a 34-year-old man who presents to the hospital after his oxygen tank accidentally dropped on his right foot. The patient has a history of chronic systolic CHF and is also complaining of worsening swelling his lower extremities and trouble breathing. * Trauma to right lower extremity: X-ray negative for fracture, pain control, physical therapy. 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 DVT prophylaxis; patient is fully anticoagulated with Warfarin Hypotension: BP meds adjusted, diuretics discontinued. Beta-nilson changed from Coreg to metoprolol. Disposition; okay to d/c per Cardiology Disposition: DC-01 TO HOME OR SELFCARE Time spent for discharge: 35 minutes Core Measure Documentation - Palliative Care Palliative Care/ Comfort Measures: Not Applicable - Core Measures Any of the following diagnoses?: heart failure - VTE Discharge Requirements Deep Vein Thrombosis/Pulmonary Embolism Present on Admission: No Has pt received <5 days of overlap therapy or INR<2.0: No Anticoagulant overlap therapy prescribed at discharge: No Contraindication No Overlap Therapy order at DC: Not Indicated - Heart Failure Discharge Requirements JOSH/ARB for LVSD if EF <40%: No Reason for no JOSH/ARB: Renal impairment Beta nilson at discharge: Yes Exam - Physical Exam Narrative exam: Gen: WDWN, mo bmi 68.4, NAD, Awake, Alert, Orientated HEENT: NCAT, EOMI, PERRL, OP Clear Neck: supple, no adenopathy, no thyromegaly, no JVD CVS/Heart: RRR, normal S1S2, pulses present bilaterally Chest/Lungs: diminished bs bilaterally,, Symmetrical chest expansion, good air entry bilaterally GI/Abdomen: soft, NTND, good bowel sounds, no guarding or rebound /Bladder: no suprapubic tenderness, no CVA or paraspinal tenderness Extermity/Skin: charcot joint bilateral, ble non pitting edema MSK: FROM x 4 Neuro: CN 2-12 grossly intact, no new focal deficits Psych: calm - Constitutional Vitals: Temp Pulse Resp BP Pulse Ox 98.2 F 74 18 109/67 100 09/08/19 12:45 09/08/19 12:45 09/08/19 12:45 09/08/19 12:45 09/08/19 12:45 Plan Activity: other (no strenous activity unless cleared by Cardiology) Diet: low salt Additional Instructions: STOPPED METFORMIN DUE TO RENAL DISORDER, STARTED GLUCOTROL XL Follow up with: PRIMARY CARE, [Primary Care Provider] - 3-5 Days Forms: Warfarin Discharge Instruction Prescriptions: Bumetanide [Bumex 1 mg tab] 1 mg PO BID #60 tablet glipiZIDE XL [Glucotrol Xl] 5 mg PO QAM #30 tab.er.24 Metoprolol [Lopressor TAB] 12.5 mg PO BID #30 tablet
[2019-09-08] MEDS: WARFARIN 10 MG TAB PO SCH (16:50)
[2019-09-08] MEDS ORDERED: BUMETANIDE 1 MG TAB PO SCH (22:00)
== END 2019-09-08 18:04 | disposition home or self-care (01) | DRG 682 ==
LOC: ED 19:06 → 3A 21:37 → OBSVTOIN 09-06 18:52 → 4A 09-06 23:10
PROVIDERS: ADMIT Internal Medicine Geriatric Medicine; ATTEND Internal Medicine
DX: N17.0 Acute kidney failure with tubular necrosis (principal); I50.23 Acute on chronic systolic (congestive) heart failure; D68.59 Other primary thrombophilia; E87.1 Hypo-osmolality and hyponatremia; Z68.44 Body mass index [BMI] 60.0-69.9, adult; M79.604 Pain in right leg; E66.01 Morbid (severe) obesity due to excess calories
CPT/HCPCS: 36415; 71045; 80048; 80053; 82550; 82962; 83036; 83735; 83880; 85007; 85014; 85018; 85025; 85027; 85049; 85610; 85730; 87116; 93005; 93010; 93306; 94760; G0378; A9270-GY; J1170; J1940; J2270